=== PATIENT | male | born 1965 | race Two or more races ===

== ENCOUNTER → 2020-07-31 10:45 | Outpatient (BNVA) | payer MEDICAID, SELFPAY | PROVIDERS: PCP Internal Medicine; Referring Provider Internal Medicine; Visit Provider Physician Assistant | DX: M16.12 Unilateral primary osteoarthritis, left hip (principal); Z98.890 Other specified postprocedural states | CPT/HCPCS: 99212 ==

== ENCOUNTER → 2020-08-10 08:50 | Outpatient (BNVA) | payer MEDICAID, SELFPAY | PROVIDERS: PCP Family Medicine; Visit Provider Anesthesiology | DX: G89.4 Chronic pain syndrome (principal); M50.30 Other cervical disc degeneration, unspecified cervical region; M47.812 Spondylosis without myelopathy or radiculopathy, cervical region; M47.816 Spondylosis without myelopathy or radiculopathy, lumbar region | CPT/HCPCS: 99212 ==

== ENCOUNTER → 2020-08-11 08:37 | Outpatient (BNVA) | payer MEDICAID, SELFPAY | PROVIDERS: PCP Family Medicine; Referring Provider Family Medicine; Visit Provider Internal Medicine Gastroenterology | DX: R13.10 Dysphagia, unspecified (principal); R06.00 Dyspnea, unspecified | CPT/HCPCS: 99212 ==

== ENCOUNTER 2020-08-20 10:53 | Outpatient (REF) | payer MEDICAID, SELFPAY ==
[2020-08-20 12:31] LABS: MANUAL DIFF FLAG NO
[2020-08-20 12:50] LABS: Basophils Percent Auto 0.5 % (0-2); Eosinophils Absolute Auto 0.2 X10*3/uL (0.0-0.4); Eosinophils Percent Auto 3.7 % (0-4); Hematocrit 43.4 % (42-52); Hemoglobin 14.2 g/dl (14.0-18.0); Imm Gran Abs Auto 0.02 X10*3/uL (0.00-0.03); Imm Gran Pct Auto 0.3 % (0.0-0.4); Lymphocytes Absolute Auto 3.1 X10*3/uL (1.2-4.9); Lymphocytes Percent Auto 47.5 % (20-40); Mean Corpuscular HGB Conc 32.7 g/dl (31.0-36.0); Mean Corpuscular Hemoglobin 31.2 pg (27.0-33.0); Mean Corpuscular Volume 95.4 fL (80-98); Mean Platelet Volume 9.4 fL (9.4-12.4); Monocytes Absolute Auto 0.5 X10*3/uL (0.1-1.2); Monocytes Percent Auto 7.1 % (2-11); Neutrophils Absolute Auto 2.7 X10*3/uL (2.0-8.3); Neutrophils Percent Auto 40.9 % (45-73); Platelet Count 291 X10*3/uL (160-400); Red Blood Count 4.55 X10*6/uL (4.60-5.80); Red Cell Distribution Width 13.2 % (11.0-16.0); White Blood Count 6.5 X10*3/uL (4.8-10.8)
[2020-08-20 13:12] LABS: Alanine Aminotransferase 40 U/L (0-40); Albumin Level 4.3 g/dL (3.5-5.0); Alkaline Phosphatase 79 U/L (39-117); Anion Gap 10 (12-20); Aspartate Amino Transferase 30 U/L (5-37); Bilirubin Total 0.4 mg/dL (0.0-1.0); Blood Urea Nitrogen 11 mg/dL (9-16); C Reactive Protein 0.44 mg/dL (< or = 0.50); Calcium 9.2 mg/dL (8.4-10.2); Carbon Dioxide 29 mmol/L (22-29); Chloride 106 mmol/L (96-108); Estimated Glomerular Filt Rate > 60; Glucose Random 106 mg/dL (60-115); Potassium 5.1 mmol/l (3.3-5.1); Sodium 140 mmol/L (135-145); Total Protein 6.9 g/dL (6.5-8.0)
[2020-08-20 13:16] LABS: Alanine Aminotransferase 39 U/L (0-40); Albumin Level 4.3 g/dL (3.5-5.0); Alkaline Phosphatase 78 U/L (39-117); Anion Gap 9 (12-20); Aspartate Amino Transferase 29 U/L (5-37); B Type Natriuretic Peptide < 10 pg/mL (<100); Bilirubin Direct < 0.2 mg/dL (0.0-0.5); Bilirubin Total 0.4 mg/dL (0.0-1.0); Blood Urea Nitrogen 11 mg/dL (9-16); Carbon Dioxide 29 mmol/L (22-29); Chloride 105 mmol/L (96-108); Estimated Glomerular Filt Rate > 60; Glucose Random 105 mg/dL (60-115); Potassium 5.1 mmol/l (3.3-5.1); Sodium 138 mmol/L (135-145); Total Protein 6.8 g/dL (6.5-8.0)
[2020-08-20 13:43] LABS: Erythrocyte Sedimentation Rate 7 MM/HR (0-15)
== END 2020-08-20 10:54 | disposition home or self-care (01) ==
LOC: HO.LAB 10:53
PROVIDERS: Absent Provider Student in an Organized Health Care Education/Training Program; PCP Family Medicine; Visit Provider Internal Medicine Gastroenterology
DX: K75.81 Nonalcoholic steatohepatitis (NASH) (principal); R06.00 Dyspnea, unspecified; L40.50 Arthropathic psoriasis, unspecified; L40.9 Psoriasis, unspecified; M47.816 Spondylosis without myelopathy or radiculopathy, lumbar region
CPT/HCPCS: 36415; 80048; 80053; 80076; 82248; 83880; 85025; 85652; 86140

== ENCOUNTER → 2020-08-26 09:39 | Outpatient (BNVA) | payer MEDICAID, SELFPAY | PROVIDERS: PCP Family Medicine; Referring Provider Family Medicine; Visit Provider Student in an Organized Health Care Education/Training Program | DX: L40.50 Arthropathic psoriasis, unspecified (principal); L40.9 Psoriasis, unspecified; R06.00 Dyspnea, unspecified; G89.4 Chronic pain syndrome; M47.816 Spondylosis without myelopathy or radiculopathy, lumbar region; M79.606 Pain in leg, unspecified; Z79.899 Other long term (current) drug therapy; Z23 Encounter for immunization | CPT/HCPCS: 90686; 93005; 99202; 99212 ==

== ENCOUNTER 2020-08-27 08:37 | Outpatient (REF) | payer MEDICAID, SELFPAY ==
--- NOTE | 2020-08-27 08:42 | US_ITS ---
Examination: US LIMITED ABDOMINAL ULTRASOUND WITH THE ELASTOGRAPHY CLINICAL INFORMATION: Nonalcoholic steatohepatitis. COMPARISON: Abdominal ultrasound on 07/18/2019. TECHNIQUE: Real-time scanning of the abdomen was performed assessing randolph scale appearance. Shear wave elastography of the liver was performed. FINDINGS: Liver: The liver is coarse in echotexture and increased in echogenicity. Within the right lobe is a 4.7 x 3.3 x 3.6 cm anechoic cyst. This cyst has increased in size from the 07/18/2019 comparison when it measured up to 3.5 cm maximally. The cyst is unchanged in character without any demonstrable internal flow or wall thickening. A thin single septation is similar appearing to the prior. There is no vascularity within the septation. Within the left lobe is a 4 mm cyst which is unchanged in size or character from the comparison examination. There is no biliary ductal dilatation. Shear wave elastography provides a median stiffness of 1.35 m/s (reference: Normal median stiffness is 0.81 - 1.22 m/s). The IQR/median stiffness to assess sampling precision is 0.10 (reference: Optimal IQR/median stiffness is under 0.3). Gallbladder: Unremarkable. Common Bile Duct: Measures 0.5 mm. Normal caliber. Pancreas: Visualized portions are unremarkable. Kidneys: Right measures 9.6 cm. No hydronephrosis. No nephrolithiasis identified. US/US abdomen remy w elastography IMPRESSION: Echogenic liver consistent with hepatic steatosis. Elastography: Normal to mild fibrosis. A minimally complex cyst within the right lobe of the liver has increased in size from the comparison examination, now measuring up to 4.7 cm (previously 3.5 cm). Attention on short-term ultrasound follow-up.
== END 2020-08-27 08:38 | disposition home or self-care (01) ==
LOC: HO.US 08:37
PROVIDERS: PCP Family Medicine; Visit Provider Internal Medicine Gastroenterology
DX: K75.81 Nonalcoholic steatohepatitis (NASH) (principal); R06.00 Dyspnea, unspecified
CPT/HCPCS: 76705; 76981

== ENCOUNTER → 2020-09-16 11:15 | Outpatient (REF) | payer MEDICAID, SELFPAY ==
--- NOTE | 2020-09-16 11:22 | CA_ITS ---
Transthoracic Echocardiogram Patient (Last, First, Middle): Kvng Ramon E Gender: Male Date of : 1965 Age: 55 Procedure Date: 09/16/2020 Procedure Type: Transthoracic Echocardiogram Location: OP Height: 160.02 cm Weight: 72.58 kg BSA: 1.76 m2 Heart Rate: bpm BP: 116 / 62 mmHg Hoop Bender Tank: DSDoreen Referring MD: Gen Rosales MD Symptoms: R06.00 - Dyspnea, unspecified Study Quality: Good ECG Rhythm: Sinus Conclusions: - The left ventricular systolic function is normal. The visually estimated ejection fraction is between 65-70%. - No obvious valvular pathology seen on this study. Findings Left Ventricle Normal left ventricular cavity size. There is normal left ventricular wall thickness. The left ventricular systolic function is normal. The visually estimated ejection fraction is between 65-70%. The calculated ejection fraction is 69% by biplane method. There is no evidence of regional wall motion abnormalities. Diastolic function is normal for age. Right Ventricle Normal right ventricular cavity size and systolic function. Atria The left atrium is normal in size. The right atrium is normal in size. Aortic Valve There is a normal trileaflet aortic valve. There is no aortic valve stenosis. There is no aortic valve regurgitation. Mitral Valve The mitral valve appears normal. There is no mitral valve regurgitation. There is no mitral valve stenosis. Pulmonic Valve The pulmonic valve was not well visualized. Tricuspid Valve Normal tricuspid valve structure. There is trace tricuspid valve regurgitation. The pulmonary artery systolic pressure is normal. Great Vessels The aortic annulus, sinuses of valsalva, and asc aorta are normal in size. Venous The inferior vena cava is normal in size and collapses greater than 50% with inspiration. Pericardium/Pleural There is no evidence of pericardial effusion. Prior Study Comparison No prior study available for comparison. Recommendations, Care & Conclusions No obvious valvular pathology seen on this study. Measurements M-Mode Liner Measurements Normals - Women/Men IVSd: 1.15 0.6-0.9/0.6-1.0 cm 2D Linear Measurements IVSd: 0.96 0.6-0.9/0.6-1.0 cm LVIDd: 4.44 3.9-5.3/4.2-5.9 cm LVIDd Index: 2.52 2.4-3.2/2.2-3.1 cm/m2 LVIDs: 2.83 2.0-3.6 cm LVPWd: 0.79 0.7-1.1 cm Ao Root: 2.50 2.1-3.5 cm LA Diam: 3.20 2.7-3.8/3.0-4.0 cm LAIDs Index: 1.82 1.5-2.3 cm/m2 LV Mass: 155.16 67-162/88-224 g LV Mass Index: 88.16 43-95/49-115 g/m2 LVOT Diam: 2.00 3.0+(-)1.3 cm 2D Systolic Function EF 4C: 67.20 >55% EF 2C: 70.60 >55% EF BiP: 69.00 >55% Mitral Valve MV Pk E: 0.63 MV PK A: 0.49 MV Decel Time: 169.00 E/A: 1.30 E'Lateral: 9.48 E'Medial: 7.45 E/E' Med: 8.40 E/E' Lat: 6.60 PHT: 50.00 MVA PHT: 4.40 Decel [place]: 3.70 Aortic Valve AoV Pk Mitchell: 1.33 AoV Pk Grad: 7.00 LVOT LVOT Pk Mitchell: 1.12 LVOT Mn Mitchell: 0.72 LVOT VTI: 0.21 LVOT Pk Grad: 5.00 LVOT Mn Grad: 3.00 LVOT Diam: 2.00 LVOT Area: 3.14 Diastolic Function MV Pk E: 0.63 MV Pk A: 0.49 E/A: 1.30 E'Medial: 7.45 E/E' Med: 8.40 E' Laterial: 9.48 E/E' Lat: 6.60 Tricuspid Valve TR Pk Mitchell: 2.20 TR Pk Grad: 19.00 RA Press: 3.00 RVSP: 22.00 Great Vessels Aorta Ao Root-2D: 2.50 2.0-3.7 cm Ao Asc: 2.80 2.1-3.4 cm Updated in Other Vendor System with Status of Final Louie Quiros MD electronically signed on 09/18/2020 11:03:01 AM with status of Final
--- NOTE | 2020-09-16 12:20 | US_ITS ---
EXAMINATION: NONINVASIVE ANKLE BRACHIAL INDICES OF BOTH LOWER EXTREMITIES CLINICAL INFORMATION: Leg pain. COMPARISON: None. TECHNIQUE: Ankle-brachial indices were calculated bilaterally and PVR tracings were performed at the level of the ankles. This study was performed at rest only. FINDINGS: RIGHT LEG: Right ankle-brachial index: 1.17 Right ankle pressures: PT 139 DP 142 PVR (ankle): Normal LEFT LEG: Ankle-brachial index: 1.25 Pressures: PT 151 DP 128 PVR (ankle): Normal LETITIA Reference: - >0.97-1.25 = normal - no significant arterial disease - 0.75-0.96 = mild peripheral arterial disease - 0.5-0.74 = moderate peripheral arterial disease - <0.50 = severe peripheral arterial disease US/US LETITIA complete IMPRESSION: RIGHT LEG: No evidence of arterial insufficiency. LEFT LEG: No evidence of arterial insufficiency.
== END ==
LOC: HO.CARD 11:15
PROVIDERS: Visit Provider Internal Medicine Cardiovascular Disease
DX: M79.606 Pain in leg, unspecified (principal); R06.00 Dyspnea, unspecified
CPT/HCPCS: 93306; 93923

== ENCOUNTER → 2020-09-17 10:38 | Outpatient (REF) | payer MEDICAID, SELFPAY ==
--- NOTE | 2020-09-17 10:44 | CA_ITS ---
Acquisition Time: 2020-09-17 11:41:09 Total Exercise Time: 00:07:32 Test Indications: alejandra Medications: see chart Protocol: DEEPAK Max HR: 131 BPM 80% of Pred: 163 BPM Max BP: 128/082 mmHG Max Work Load: 7.5 METS Exercise sxtress ECHO using Deepak protocol. 3rd stage held as pt was having trouble ambulating d/t his R knee pain. METS 7.1 Denies any anginal sx. Pt was able to reach only 80 % of MAPHR and so the stress test portion is suboptimal. Echo images taken at rest and immediately ater peak HR achieved. Defenity contrast used. Normotensive response to exercsie. Test reviewed with Dr. Quiros Referred By: Gen Rosales Overread By: Laura Zelaya
== END ==
LOC: HO.CARD 10:38
PROVIDERS: Visit Provider Internal Medicine Cardiovascular Disease
DX: R06.00 Dyspnea, unspecified (principal)
CPT/HCPCS: 93350; Q9957

== ENCOUNTER 2020-09-21 13:02 | Outpatient (REF) | payer MEDICAID, SELFPAY ==
--- NOTE | 2020-09-21 13:43 | XR_ITS ---
EXAMINATION: XR PELVIS XR LEFT HIP CLINICAL INFORMATION: Primary osteoarthritis. COMPARISON: 06/12/2020 TECHNIQUE: Pelvis 1 view. Left hip 2 views. FINDINGS: Left Hip: No acute fracture or dislocation. Redemonstrated is prominent sclerotic changes in the femoral head including in the subchondral location. Findings are suspicious for avascular necrosis. No focal subchondral collapse is identified. Hip joint space is maintained. Some calcific density adjacent to the greater trochanter, stable. Pelvis: Right hip joint space is maintained. Mild bilateral SI joint arthritis. No pelvic fractures seen. Phlebolith in the pelvis. Vascular calcifications. XR/XR hip LT min 2V IMPRESSION: Stable appearance of sclerotic changes in the left femoral head, suspicious for avascular necrosis. No evidence of subchondral collapse. Mild bilateral SI joint arthritis. No acute fracture or dislocation.
--- NOTE | 2020-09-21 13:43 | XR_ITS ---
EXAMINATION: XR PELVIS XR LEFT HIP CLINICAL INFORMATION: Primary osteoarthritis. COMPARISON: 06/12/2020 TECHNIQUE: Pelvis 1 view. Left hip 2 views. FINDINGS: Left Hip: No acute fracture or dislocation. Redemonstrated is prominent sclerotic changes in the femoral head including in the subchondral location. Findings are suspicious for avascular necrosis. No focal subchondral collapse is identified. Hip joint space is maintained. Some calcific density adjacent to the greater trochanter, stable. Pelvis: Right hip joint space is maintained. Mild bilateral SI joint arthritis. No pelvic fractures seen. Phlebolith in the pelvis. Vascular calcifications. XR/XR pelvis 1-2V IMPRESSION: Stable appearance of sclerotic changes in the left femoral head, suspicious for avascular necrosis. No evidence of subchondral collapse. Mild bilateral SI joint arthritis. No acute fracture or dislocation.
== END 2020-09-21 13:03 | disposition home or self-care (01) ==
LOC: HO.HOSX 13:02
PROVIDERS: PCP Family Medicine; Referring Provider Family Medicine; Visit Provider Physician Assistant
DX: M16.12 Unilateral primary osteoarthritis, left hip (principal); M87.052 Idiopathic aseptic necrosis of left femur; M70.61 Trochanteric bursitis, right hip
CPT/HCPCS: 20610; 72170; 73502; 99212; J1040

== ENCOUNTER → 2020-09-28 09:01 | Outpatient (BNVA) | payer MEDICAID, SELFPAY | PROVIDERS: PCP Family Medicine; Visit Provider Internal Medicine Cardiovascular Disease | DX: R06.00 Dyspnea, unspecified (principal); G89.4 Chronic pain syndrome | CPT/HCPCS: 99212 ==

== ENCOUNTER 2020-09-29 14:10 | Outpatient (REF) | payer MEDICAID, SELFPAY ==
--- NOTE | 2020-09-29 14:14 | MR_ITS ---
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 COMPARISON: Radiograph dated 09/21/2020 TECHNIQUE: MRI of the left hip was obtained using routine sequences on a high-field magnet. FINDINGS: LABRUM/CAPSULE: There is a small focal tear of the anterosuperior acetabular labrum between the 12 o'clock position and anterosuperior 1 o'clock position. BONES AND ARTICULAR CARTILAGE: A small region of subchondral infarction at the femoral head is relatively linear and discontinuous. The zone measures 3.5 x 2.2 cm in area (AP x transverse), though there is a relatively small volume of necrotic bone, measuring up to 1.2 cm in thickness anteriorly and only 5 mm in thickness posteriorly. There is no significant surrounding marrow edema signal. A subtle cortical break is evident at the anterosuperior/medial margin of the femoral head with overlying full-thickness chondral fissuring and mild underlying subchondral edema. Additional mild subchondral cystic change and edema are noted at the acetabular rim anteriorly, likely due to overlying cartilage loss. There are small marginal osteophytes at the acetabulum. The pubic symphysis is unremarkable. There is mild osteoarthritis in the right hip and SI joints. Degenerative spondylosis is present in the lower lumbar spine. MUSCLES AND TENDONS: At the gluteus medius insertion, there is a 1.2 x 0.5 x 0.7 cm focus of low signal intensity, consistent with calcific tendinitis. The surrounding soft tissues are edematous. A smaller, more punctate focus of calcific tendinitis is also present in this region, measuring up to 4 mm in diameter. There is more mild tendinosis of the gluteus minimus. No tears are identified. There is mild surrounding soft tissue edema. Tendons are otherwise unremarkable. Left hip musculature is normal in signal intensity without atrophy. JOINT FLUID AND BURSAE: No joint effusion. Trace bursal fluid overlying the aforementioned calcific tendinitis at the greater trochanter. LIGAMENTUM TERES: Intact. INTRAPELVIC SOFT TISSUES: Unremarkable. MR/MR hip LT wo con IMPRESSION: 1. Calcific tendinitis at the gluteus medius insertion with surrounding peritendinitis and trace overlying trochanteric bursitis. No tears. 2. Avascular necrosis of the left femoral head with focal full-thickness chondral fissuring, cortical break, and cartilage loss at the anterior margin of the femoral head. Overall mild arthrosis in the left hip. No cortical depression or fragmentation. 3. Small anterosuperior acetabular labral tear.
== END 2020-09-29 14:11 | disposition home or self-care (01) ==
LOC: HO.MRI 14:10
PROVIDERS: PCP Family Medicine; Visit Provider Physician Assistant
DX: M87.052 Idiopathic aseptic necrosis of left femur (principal)
CPT/HCPCS: 73721

== ENCOUNTER 2020-10-16 09:55 | Outpatient (REF) | payer MEDICAID, SELFPAY ==
--- NOTE | 2020-10-16 10:55 | XR_ITS ---
EXAMINATION: XR CHEST CLINICAL INFORMATION: Shortness of breath. COMPARISON: 03/10/2020 chest radiographs. TECHNIQUE: 2 views of the chest were obtained. FINDINGS: No significant abnormality is noted involving the heart, lungs, mediastinum, bony thorax or soft tissues. XR/XR chest 2V IMPRESSION: No acute cardiopulmonary process.
== END 2020-10-16 09:56 | disposition home or self-care (01) ==
LOC: HO.XRAY 09:55
PROVIDERS: PCP Family Medicine; Visit Provider Internal Medicine Gastroenterology
DX: R06.02 Shortness of breath (principal); K76.89 Other specified diseases of liver; R06.00 Dyspnea, unspecified; M54.9 Dorsalgia, unspecified; R13.10 Dysphagia, unspecified; M87.052 Idiopathic aseptic necrosis of left femur
CPT/HCPCS: 71046; 99212

== ENCOUNTER → 2020-10-21 13:38 | Outpatient (BNVA) | payer MEDICAID, SELFPAY | PROVIDERS: PCP Family Medicine; Visit Provider Anesthesiology | DX: M50.30 Other cervical disc degeneration, unspecified cervical region (principal); M47.812 Spondylosis without myelopathy or radiculopathy, cervical region; M47.816 Spondylosis without myelopathy or radiculopathy, lumbar region; G89.4 Chronic pain syndrome | CPT/HCPCS: 99212 ==

== ENCOUNTER 2020-10-28 12:43 | Outpatient (REF) | payer MEDICAID, SELFPAY ==
--- NOTE | 2020-10-28 12:44 | MR_ITS ---
EXAMINATION: MR ABDOMEN WITHOUT AND WITH CONTRAST CLINICAL INFORMATION: Liver disease. COMPARISON: Previous ultrasound of the abdomen August [address] of the abdomen with IV contrast July 2019 TECHNIQUE: MR abdomen was performed without and with use of 10 mL intravenous Gadavist gadolinium contrast. Postcontrast images are performed in multiphase dynamic sequences. Imaging was performed in 3 planes. FINDINGS: LUNG BASES: The visualized lung bases are unremarkable. LIVER, GALLBLADDER, AND BILIARY TREE: The liver is normal in size and shape. There is fatty infiltration of the liver. There are several liver cysts. There is a 4.5 x 3.6 cm cyst in the anterior segment of the right lobe of the liver. This is minimally complex with a small thin nonenhancing septation. There is a small 7 mm cyst in the posterior segment of the right lobe. There is a small 6 mm cyst in the lateral segment of the left lobe. There is a 5 mm cyst high in the dome of the right lobe of the liver. The gallbladder is normal appearing. There is no intrahepatic or extrahepatic biliary duct dilatation. PANCREAS: Unremarkable. SPLEEN: Normal. ADRENAL GLANDS: Normal. KIDNEYS AND URETERS: There is a small 1 cm lesion in the lower pole of the left kidney. This is high signal on T1-weighted sequences, heterogeneous, partially high and partially low signal on T2-weighted sequences. Evaluation for enhancement is difficult as it is predominantly high signal on precontrast images. No definite enhancement is appreciated. This probably represents a complex cyst. This is similar in size to July 2019 CT scan. This is not seen by ultrasound. GASTROINTESTINAL TRACT: There is diverticulosis of the colon. No bowel obstruction. No ascites or fluid collection. ABDOMINAL WALL: No significant hernia is appreciated. LYMPH NODES: No lymphadenopathy. VASCULAR: Unremarkable. OSSEOUS STRUCTURES: Marrow signal normal. MR/MR abdomen wo/w con IMPRESSION: Fatty liver. Several liver cysts, largest a minimally complex cyst measuring 4.5 x 3.6 cm in the right lobe of the liver. 1 cm probable complex cyst in the lower pole of the left kidney. Diverticulosis of the colon.
== END 2020-10-28 12:44 | disposition home or self-care (01) ==
LOC: HO.MRI 12:43
PROVIDERS: Visit Provider Internal Medicine Gastroenterology
DX: K76.89 Other specified diseases of liver (principal)
CPT/HCPCS: 74183; A9585

== ENCOUNTER 2020-11-03 09:00 | Outpatient (RCR) | payer MEDICAID, SELFPAY ==
--- NOTE | 2020-09-24 14:21 | MHC.PT.EP ---
[facility] [place] Office [place] Office [place] Office [address] [phone] F: [phone] F: [phone] F: [phone] F: [phone] Physical Therapy Plan of Care Date of Evaluation: 09/23/20 Date of Surgery: NA Diagnosis: LEFT TROCHANTERIC BURSITIS Assessment: DANTE RETURNS TO PT FOR EXACERBATION OF HIP PAIN WITH CONCURRENT DIAGNOSIS OF AVN, UPON EXAM HE DEMONSTRATES IMPAIRMENTS OF DECREASED HIP AND LE STRENGTH/ROM ALTERED GAIT PATTERN, DECREASED BALANCE AND INCREASED PAIN. FUNCTIONAL LIMITATIONS INCLUDE DECREASED ABILITY TO PERFORM WALKING, STAIR CLIMBING, PUSHING, PULLING AND SQUATTING. HE REPORTS DECREASED ABILITY TO PERFORM HOMEMAKING AND SELF CARE TASKS, DECREASED ABILITY TO SLEEP, DECREASED PARTICIPATION IN COMMUNITY ACTIVITIES. Frequency and Duration: The patient will be seen 2XWEEK FOR 5 WEEKS Short Term Goals: INITIATE HEP AND EDUCATE IN JOINT PROTECTION AND SELF MANAGEMENT OF SYMPTOMS IN 2 WEEKS. Intermediate Goals: TO AMBULATE AD CELESTE ON LEVEL AND UNEVEN SURFACES WITHOUT RESTRICTION IN 5 WEEKS TO ASCEND AND DESCEND STAIRS WITH RECIPROCAL GAIT IN 5 WEEKS WITHOUT PAIN GREATER THAN 2/10. Treatment Plan: Modalities to reduce pain, spasms and effusion. Manual therapy to restore motion and function. Therapeutic exercise to improve strength and flexibility. Neuromuscular re-education for posture and balance. Therapeutic activities to return to functional activities of daily living. Electronically signed by: NANCY HIGGINBOTHAM PT, DPT Please sign and return to therapist. Thank you for your referral.
--- NOTE | 2020-11-03 13:10 | MHC.PT.DC ---
[facility] [place] Office [place] Office [place] Office [address] [phone] F: [phone] F: [phone] F: [phone] F: [phone] Physical Therapy Discharge Report Diagnosis: AVN, LEFT TROCHANTERIC BURSITIS Date of Surgery: NA Date of Evaluation: 09/23/20 Date of Discharge: 11/03/20 Treatments to Date: 11 Cancellations to Date: 0 No Shows to Date: 0 Discharge Status: Improved Function Independent with HEP Discharge Summary: Kvng has progressed well in therapy. Although subjective pain levels have remained fairly constant, he demmonstrates increased strength, ROM and endurance in hip musculature with decreased antalgia with gait. He is independent with current HEP and self management of symptoms. He is confident with DC plan at this time. Electronically signed by: NANCY HIGGINBOTHAM PT, DPT Please sign and return to therapist. Thank you for your referral.
== END 2020-11-03 13:11 | disposition other institution (70) ==
LOC: HO.PT 09:00
PROVIDERS: PCP Family Medicine; Visit Provider Physician Assistant
DX: M70.62 Trochanteric bursitis, left hip (principal)
CPT/HCPCS: 97033; 97110; 97162

== ENCOUNTER → 2020-11-11 12:47 | Outpatient (BNVA) | payer MEDICAID, SELFPAY | PROVIDERS: PCP Family Medicine; Visit Provider Internal Medicine Pulmonary Disease | DX: R06.00 Dyspnea, unspecified (principal); J84.9 Interstitial pulmonary disease, unspecified; Z77.090 Contact with and (suspected) exposure to asbestos | CPT/HCPCS: 99202 ==

== ENCOUNTER 2020-11-23 11:06 | Outpatient (REF) | payer MEDICAID, SELFPAY ==
[2020-11-23 11:42] LABS: MANUAL DIFF FLAG NO
[2020-11-23 11:52] LABS: Basophils Percent Auto 0.5 % (0-2); Eosinophils Absolute Auto 0.2 X10*3/uL (0.0-0.4); Eosinophils Percent Auto 2.4 % (0-4); Hematocrit 44.2 % (42-52); Hemoglobin 14.8 g/dl (14.0-18.0); Imm Gran Abs Auto 0.02 X10*3/uL (0.00-0.03); Imm Gran Pct Auto 0.2 % (0.0-0.4); Lymphocytes Absolute Auto 3.4 X10*3/uL (1.2-4.9); Lymphocytes Percent Auto 40.7 % (20-40); Mean Corpuscular HGB Conc 33.5 g/dl (31.0-36.0); Mean Corpuscular Hemoglobin 31.2 pg (27.0-33.0); Mean Corpuscular Volume 93.1 fL (80-98); Monocytes Absolute Auto 0.5 X10*3/uL (0.1-1.2); Monocytes Percent Auto 6.2 % (2-11); Neutrophils Absolute Auto 4.2 X10*3/uL (2.0-8.3); Platelet Count 323 X10*3/uL (160-400); Red Blood Count 4.75 X10*6/uL (4.60-5.80); Red Cell Distribution Width 12.8 % (11.0-16.0); White Blood Count 8.4 X10*3/uL (4.8-10.8)
[2020-11-23 12:13] LABS: Alanine Aminotransferase 30 U/L (0-40); Albumin Level 4.5 g/dL (3.5-5.0); Alkaline Phosphatase 82 U/L (39-117); Anion Gap 12 (12-20); Aspartate Amino Transferase 23 U/L (5-37); Bilirubin Total 0.7 mg/dL (0.0-1.0); Blood Urea Nitrogen 14 mg/dL (9-16); C Reactive Protein 0.98 mg/dL (< or = 0.50); Calcium 9.2 mg/dL (8.4-10.2); Carbon Dioxide 29 mmol/L (22-29); Chloride 105 mmol/L (96-108); Estimated Glomerular Filt Rate 58; Glucose Random 100 mg/dL (60-115); Potassium 4.8 mmol/L (3.3-5.1); Sodium 141 mmol/L (135-145); Total Protein 7.4 g/dL (6.5-8.0)
[2020-11-23 12:35] LABS: Erythrocyte Sedimentation Rate 3 MM/HR (0-15)
== END 2020-11-23 11:07 | disposition home or self-care (01) ==
LOC: HO.LAB 11:06
PROVIDERS: Visit Provider Student in an Organized Health Care Education/Training Program
DX: L40.50 Arthropathic psoriasis, unspecified (principal)
CPT/HCPCS: 36415; 80053; 85025; 85652; 86140

== ENCOUNTER 2020-11-26 | Outpatient (REF) | payer MEDICAID, SELFPAY ==
--- NOTE | ~2020-11-26 | CT_ITS ---
EXAMINATION: CT CHEST WITHOUT CONTRAST CLINICAL INFORMATION: Interstitial pulmonary disease COMPARISON: Previous chest x-ray 10/16/2020 and chest CTA March 2020 TECHNIQUE: Multidetector volumetric CT imaging of the chest was done. Axial MIP volume rendering provided. Sagittal and coronal reformatted images were obtained. This CT examination was performed using dose optimization techniques as appropriate, variously including the following: *Automated exposure control *Adjustment of mA and/or kV according to patient size (this includes techniques or standardized protocols for targeted exams where dose is matched to indication/reason for exam; i.e. 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 No evidence of interstitial lung disease is seen. No evidence of emphysema or bronchiectasis is seen. There is no endobronchial or endotracheal lesion. MEDIASTINUM: The mediastinum is normal. PLEURA: There is no pleural effusion. No pleural mass or thickening. AXILLA: No lymphadenopathy. UPPER ABDOMEN: The liver is heterogeneous in attenuation probably representing fatty infiltration with areas of focal fatty sparing. There is a 3.6 cm low-attenuation lesion in the right lobe of the liver suggestive of a cyst. OSSEOUS STRUCTURES: There are mild degenerative changes of the lower cervical and upper thoracic spine. CT/CT chest wo con IMPRESSION: Unremarkable examination.
== END 2020-11-26 00:01 ==
LOC: HO.CT
PROVIDERS: Visit Provider Internal Medicine Pulmonary Disease
DX: J84.9 Interstitial pulmonary disease, unspecified (principal)
CPT/HCPCS: 71250

== ENCOUNTER → 2020-11-27 12:16 | Outpatient (BNVA) | payer MEDICAID, SELFPAY | PROVIDERS: PCP Family Medicine; Visit Provider Student in an Organized Health Care Education/Training Program | DX: L40.50 Arthropathic psoriasis, unspecified (principal); L40.9 Psoriasis, unspecified | CPT/HCPCS: 99212 ==

== ENCOUNTER 2020-12-02 13:44 | Outpatient (REF) | payer MEDICAID, SELFPAY ==
--- NOTE | 2020-12-02 14:55 | PFT_ITS ---
Forced vital capacity, FEV1, UGI82-17 are normal. MVV slightly decreased. Post bronchodilator therapy, no significant change. Total lung capacity and residual volume normal. Diffusion capacity normal. CONCLUSION: Normal pulmonary function test except for slight decrease in MVV. There is no evidence of any obstructive or restrictive pulmonary disorder. MD ALYSSA Johnson/MODL / [id number]
== END 2020-12-02 13:45 | disposition home or self-care (01) ==
LOC: HO.RESP 13:44
PROVIDERS: Visit Provider Internal Medicine Pulmonary Disease
DX: J84.9 Interstitial pulmonary disease, unspecified (principal); R06.02 Shortness of breath
CPT/HCPCS: 94060; 94727; 94729; 99212

== ENCOUNTER 2021-02-18 11:19 | Outpatient (REF) | payer MEDICAID, SELFPAY ==
--- NOTE | ~2021-02-18 | XR_ITS ---
EXAMINATION: RIGHT ANKLE AND RIGHT KNEE. CLINICAL INFORMATION: Pain. COMPARISON: Right knee 04/12/2018 TECHNIQUE: Right ankle 3 views. Right knee 3 views. FINDINGS: Right ankle: The ankle mortise and subtalar joints are normal. There is no visible fracture, dislocation. The soft tissues are normal. Right knee: There is a small bony avulsion fragment medial patella likely acute. No additional areas of acute fracture, dislocation or subluxation. There is mild loss of medial and patellofemoral compartment joint space with periarticular spurring. There are no loose bodies, joint effusion or bony erosive changes. XR/XR ankle RT 2V IMPRESSION: Unremarkable right ankle exam. Small avulsion fracture fragment medial patella from injury. Mild degenerative changes medial and patellar femoral compartments with mild superior patellar spurring.
--- NOTE | ~2021-02-18 | XR_ITS ---
EXAMINATION: RIGHT ANKLE AND RIGHT KNEE. CLINICAL INFORMATION: Pain. COMPARISON: Right knee 04/12/2018 TECHNIQUE: Right ankle 3 views. Right knee 3 views. FINDINGS: Right ankle: The ankle mortise and subtalar joints are normal. There is no visible fracture, dislocation. The soft tissues are normal. Right knee: There is a small bony avulsion fragment medial patella likely acute. No additional areas of acute fracture, dislocation or subluxation. There is mild loss of medial and patellofemoral compartment joint space with periarticular spurring. There are no loose bodies, joint effusion or bony erosive changes. XR/XR knee RT 3V IMPRESSION: Unremarkable right ankle exam. Small avulsion fracture fragment medial patella from injury. Mild degenerative changes medial and patellar femoral compartments with mild superior patellar spurring.
== END 2021-02-18 11:20 | disposition home or self-care (01) ==
LOC: HO.XRAY 11:19
PROVIDERS: PCP Family Medicine; Visit Provider Family Medicine
DX: M25.561 Pain in right knee (principal); M25.571 Pain in right ankle and joints of right foot
CPT/HCPCS: 73562; 73600

== ENCOUNTER → 2021-03-23 09:29 | Outpatient (REF) | payer MEDICAID, SELFPAY ==
[2021-03-23 10:45] LABS: MANUAL DIFF FLAG NO
[2021-03-23 10:54] LABS: Basophils Percent Auto 0.5 % (0-2); Eosinophils Absolute Auto 0.3 X10*3/uL (0.0-0.4); Eosinophils Percent Auto 4.2 % (0-4); Imm Gran Abs Auto 0.02 X10*3/uL (0.00-0.03); Imm Gran Pct Auto 0.3 % (0.0-0.4); Lymphocytes Absolute Auto 3.8 X10*3/uL (1.2-4.9); Mean Corpuscular HGB Conc 33.3 g/dl (31.0-36.0); Mean Corpuscular Hemoglobin 30.9 pg (27.0-33.0); Mean Corpuscular Volume 92.7 fL (80-98); Mean Platelet Volume 8.9 fL (9.4-12.4); Monocytes Absolute Auto 0.4 X10*3/uL (0.1-1.2); Monocytes Percent Auto 6.8 % (2-11); Neutrophils Percent Auto 30.2 % (45-73); Platelet Count 272 X10*3/uL (160-400); Red Blood Count 4.53 X10*6/uL (4.60-5.80); Red Cell Distribution Width 12.8 % (11.0-16.0); White Blood Count 6.5 X10*3/uL (4.8-10.8)
[2021-03-23 11:23] LABS: Alanine Aminotransferase 24 U/L (0-40); Albumin Level 4.2 g/dL (3.5-5.0); Alkaline Phosphatase 87 U/L (39-117); Anion Gap 10 (12-20); Aspartate Amino Transferase 24 U/L (5-37); Bilirubin Total 0.4 mg/dL (0.0-1.0); Blood Urea Nitrogen 14 mg/dL (9-16); Carbon Dioxide 27 mmol/L (22-29); Chloride 108 mmol/L (96-108); Estimated Glomerular Filt Rate > 60; Glucose Random 106 mg/dL (60-115); Potassium 4.4 mmol/L (3.3-5.1); Sodium 141 mmol/L (135-145); Total Protein 6.8 g/dL (6.5-8.0)
[2021-03-23 11:37] LABS: Erythrocyte Sedimentation Rate 2 MM/HR (0-15)
== END ==
LOC: HO.SL 09:29
PROVIDERS: Absent Provider Student in an Organized Health Care Education/Training Program; PCP Family Medicine; Visit Provider Family Medicine
DX: G47.30 Sleep apnea, unspecified (principal); L40.50 Arthropathic psoriasis, unspecified
CPT/HCPCS: 36415; 80053; 85025; 85652; 86140; 95806

== ENCOUNTER → 2021-03-29 12:46 | Outpatient (BNVA) | payer MEDICAID, SELFPAY | PROVIDERS: PCP Family Medicine; Referring Provider Family Medicine; Visit Provider Internal Medicine Cardiovascular Disease | DX: R20.0 Anesthesia of skin (principal) | CPT/HCPCS: 93005; 99212 ==

== ENCOUNTER → 2021-03-31 09:26 | Outpatient (BNVA) | payer MEDICAID, SELFPAY | PROVIDERS: PCP Family Medicine; Visit Provider Student in an Organized Health Care Education/Training Program | DX: L40.50 Arthropathic psoriasis, unspecified (principal); M47.816 Spondylosis without myelopathy or radiculopathy, lumbar region; Z79.899 Other long term (current) drug therapy | CPT/HCPCS: 99212 ==

== ENCOUNTER → 2021-04-02 09:33 | Outpatient (BNVA) | payer MEDICAID, SELFPAY | PROVIDERS: PCP Family Medicine; Referring Provider Family Medicine; Visit Provider Internal Medicine Gastroenterology | DX: K76.89 Other specified diseases of liver (principal); M54.9 Dorsalgia, unspecified; R20.0 Anesthesia of skin | CPT/HCPCS: 99212 ==

== ENCOUNTER 2021-04-13 07:52 | Outpatient (REF) | payer MEDICAID, SELFPAY ==
--- NOTE | ~2021-04-13 | MR_ITS ---
EXAMINATION: MR ABDOMEN WITHOUT AND WITH CONTRAST CLINICAL INFORMATION: K76.89 - Other specified diseases of liver COMPARISON: MR abdomen without and with contrast 10/28/2020, abdominal ultrasound 08/27/2020, CT abdomen with contrast 07/18/2019. TECHNIQUE: MR abdomen was performed without and with use of 7.5 mL intravenous Gadavist gadolinium contrast. Postcontrast images are performed in multiphase dynamic sequences. Imaging was performed in 3 planes. FINDINGS: LUNG BASES: The lung bases are clear. LIVER, GALLBLADDER, AND BILIARY TREE: The liver is normal in size measuring 15.8 cm in length. The liver surface is smooth. There is benign inhomogeneous geographic signal loss on out of phase imaging consistent with hepatic steatosis. There is no enhancing hepatic parenchymal lesion. The dominant cyst central right lobe with circumscribed macrolobulated margins is without significant change in size, measuring 4.6 x 3.8 x 4.5 cm on current study. Prior measurement is 4.4 x 3.7 x 4.4 cm on MR 10/28/2020 and 3.9 x 3.2 x [address] abdomen 07/18/2019, (both prior exams remeasured in same orientation). Fine incomplete nonenhancing septation noted previously is not demonstrated on current study. There is no solid component or visible septation. Again, there are incidental subcentimeter cysts dome right lobe, subcapsular posterior right lobe, and segment 3 left lobe. The gallbladder is unremarkable with no evidence of gallbladder wall thickening, or obvious pericholecystic inflammatory changes. PANCREAS: Normal in size and contour and signal. No pancreatic ductal distention. SPLEEN: Normal. ADRENAL GLANDS: Normal. KIDNEYS AND URETERS: The kidneys are normal in size and enhance symmetrically. There is stable small hemorrhagic cyst posterior lateral interpolar left kidney, either bilobed or 2 adjacent cysts, with overall size approximately 1.3 x 1.0 cm. This shows homogeneous high signal on noncontrast T1 fat-suppressed gradient sequence and no appreciable enhancement following contrast. GASTROINTESTINAL TRACT: No bowel obstruction. No ascites or fluid collection. ABDOMINAL WALL: No significant hernia is appreciated. LYMPH NODES: No lymphadenopathy. VASCULAR: Unremarkable. OSSEOUS STRUCTURES: Marrow signal normal. MR/MR abdomen wo/w con IMPRESSION: 1. Inhomogeneous hepatic steatosis. Liver normal in size. No enhancing lesion. 2. Dominant cyst right hepatic lobe without significant change, 4.6 x 3.8 x 4.5 cm. 3. Probable hemorrhagic cyst interpolar left kidney without significant change, 1.3 cm.
== END 2021-04-13 07:53 | disposition home or self-care (01) ==
LOC: HO.MRI 07:52
PROVIDERS: Visit Provider Internal Medicine Gastroenterology
DX: K76.89 Other specified diseases of liver (principal)
CPT/HCPCS: 74183; A9585

== ENCOUNTER 2021-05-06 08:55 | Day surgery (SDC) | payer MEDICAID, SELFPAY ==
[2021-04-29 13:44] VITALS: BMI 33.5
[2021-05-06 09:08] VITALS: BP 137/89; PULSE 81; RESP 16; TEMP 36.5; O2SAT 96
[2021-05-06] MEDS: Lactated Ringers 1,000 ML 50 ML IVCONT (09:32)
--- NOTE | 2021-05-06 10:03 | P.CONAN_ITS ---
[facility] Active Problems Active Problems: All Active Problems (Updated 04/29/21 @ 13:44 by Alyx loza) Osteoarthritis of left hip (Acute) Dyspnea (Acute) Nonalcoholic steatohepatitis (CROSS) (Acute) Leg pain (Acute) Avascular necrosis of bone of left hip (Acute) Trochanteric bursitis of left hip (Acute) Trochanteric bursitis of right hip (Acute) Liver cyst (Acute) SOB (shortness of breath) (Acute) Back pain (Acute) Right sided numbness (Acute) Psoriasis (Acute) Psoriatic arthritis (Acute) Chronic pain syndrome (Acute) Spondylosis of lumbar region without myelopathy or radiculopathy (Acute) Spondylosis, cervical (Acute) Degeneration, intervertebral disc, cervical (Acute) Past Medical History Medical History Asthma Avascular necrosis Chronic pain Chronic pain syndrome Degeneration, intervertebral disc, cervical Depression Dysphagia Fatty liver HTN (hypertension) Hx of chest pain Hypothyroid Mood disorder DAYNA on CPAP Pre-diabetes Psoriasis Psoriatic arthritis Schatzki's ring Spondylosis of lumbar region without myelopathy or radiculopathy Spondylosis, cervical Family History Family History Father Cirrhosis Alcoholism Mother Diabetes HTN (hypertension) Parkinson disease Brother Cirrhosis Alcoholism Family history of problems with anesthesia: No Surgical History Surgical History H/O neck surgery History of colonoscopy Hx of endoscopy Hx of hand surgery History of Problems with Anesthesia: No Social History Social History Household Members: Spouse and Children Are you a primary transition of care specialist to a significant other at home: No Do you presently have visiting nurse or other home services: No Alcohol intake: never Patient Tobacco Use Status: Never used Tobacco Use of substances other than those prescribed or required for medical reasons: No Are you DNR?: No Advance Directives: No Advance Directives Information Provided: No Advance Directives on File: No Recently lost weight without trying: No Eating poorly because of decreased appetite: No Nutrition Risks: Difficulty swallowing Meds Allergies Allergy/AdvReac Type Severity Reaction Status Date / Time No Known Allergies Allergy Verified 04/29/21 13:05 [No Known Allergies*] Active Medications: Current Medications Generic Name Dose Route Start Last Admin Trade Name Мария PRN Reason Stop Dose Admin Lactated Ringer's 1,000 mls @ 50 mls/hr 05/06/21 10:15 Lr IVCONT .Q20H [facility] Home Medications Medication Instructions Recorded Confirmed Last Taken Type albuterol sulfate 90 mcg/actuation 2 puff INHALATION Q6H PRN 08/10/20 04/29/21 Unknown History aerosol inhaler (ProAir HFA) amitriptyline 25 mg tablet 25 mg PO BEDTIME 08/10/20 04/29/21 Unknown History buspirone 10 mg tablet 10 mg PO TID 08/10/20 04/29/21 Unknown History escitalopram oxalate 20 mg tablet 20 mg PO DAILY 08/10/20 04/29/21 Unknown His tory fluticasone propionate 50 1 spray INTRANASAL DAILY 08/10/20 04/29/21 Unknown History mcg/actuation nasal spray,suspension baclofen 10 mg tablet 10 mg PO DAILY 11/11/20 04/29/21 Unknown History levothyroxine 50 mcg capsule 50 mcg PO DAILY 11/11/20 04/29/21 05/06/21 History amlodipine 2.5 mg tablet 2.5 mg PO DAILY 03/29/21 04/29/21 Unknown History gabapentin 300 mg capsule 300 mg PO TID 03/29/21 04/29/21 Unknown History loratadine 10 mg capsule 10 mg PO DAILY 03/29/21 04/29/21 Unknown History tizanidine 2 mg capsule 2 mg PO BEDTIME 03/31/21 04/29/21 Unknown History docusate sodium 100 mg capsule 1 cap PO BID 04/29/21 04/29/21 Unknown History Exam Exam Date and Time: May 06, 2021 1003 Height,Weight and Vital Signs: Height 5 ft Weight 172 lb Last Vital Signs Temp 97.7 F 05/06/21 09:08 Pulse 81 05/06/21 09:08 Resp 16 05/06/21 09:08 BP 137/89 05/06/21 09:08 Pulse Ox 96 05/06/21 09:08 Airway Mallampati Class: III TM Dist: >3cm Neck ROM: Full Assessment and Plan Assessment Anesthesia Assessment: Anesthesia Plan Discussed and Chart Reviewed Final Anesthetic Review Family History of Problems with Anesthesia: No History of Problems with Anesthesia: No NPO: Yes ASA Class: II Final Preanesthetic Review: No Changes in Pt Med Stat, Meds/Allgs Chart Reviewed, Consent Obtained/Reviewed and Anes Risks/Benef Reviewed Patient Risk: Intermediate Procedure Risk: Low Anesthetic Plan Anesthetic Plan: MAC: Disposition: Standard PACU
--- NOTE | 2021-05-06 11:31 | MHC.SHP ---
Pre-Procedural Eval Section A Date of Service: 05/06/21 Section B Chief Complaint: liver diseases Details of Present Illness: choking and fullness when swallowing Relevant Family History (Specify if Yes): No Relevant Social History: None Present Medications: see Short Stay Collaborative assessment Medical History: Significant History (Asthma Avascular necrosis Chronic pain Chronic pain syndrome Degeneration, intervertebral disc, cervical Depression Dysphagia Fatty liver HTN (hypertension) Hx of chest pain Hypothyroid Mood disorder DAYNA on CPAP Pre-diabetes Psoriasis Psoriatic arthritis Schatzki's ring Spondylosis of lumbar region ) History of Previous Operations: Relevant previous surgery/procedure and date(s) (H/O neck surgery History of colonoscopy Hx of endoscopy Hx of hand surgery) Allergies: Allergies Allergy/AdvReac Type Severity Reaction Status Date / Time No Known Allergies Allergy Verified 04/29/21 13:05 [No Known Allergies*] Review of Systems Sugical H&P ROS: Negative: Constitution, Cardiovascular, Respiratory, Neurological, Psychiatric, Hem-Onc, Allergic/Immunologic, Gastrointestinal, Genitourinary, Musculoskeletal, Integumentary, Endocrine and Eyes/Ears/Nose/Throat Exam Surgical H&P Exam: Normal: HEENT, Normal: Heart, Normal: Lungs, Normal: Extremities, Normal: Abdomen, Normal: Skin and Normal: Neurological Plan Diagnosis/Plan: Unchanged I have reviewed the history and physical and performed a pertinent physical examination on my patient. No changes have occurred unless specified.
--- NOTE | 2021-05-06 11:34 | P.BOP_ITS ---
Brief Operative Note Date of Service: 05/06/21 Pre-op diagnosis: choking and fullness on swallowing Post-op diagnosis: same Procedure: see op note Surgeon: Kolby Nelson MD Anesthesia: MAC Was an Histology Technologist used for this Procedure?: No Estimated blood loss (mL): 0 Condition: stable Disposition: PACU
--- NOTE | 2021-05-06 11:34 | W.PM.OPN ---
Operative Note Operative Note Date of Service: 05/06/21 Narrative: Procedure Description: EGD FLEXIBLE TRANSORAL UPPER GASTROINTESTINAL ENDOSCOPY UPPER ENDOSCOPY Consent: Indications for the procedure and potential complications of bleeding, perforation, reaction to medications and missed diagnosis were discussed with the patient and informed consent was obtained. Instrument: Olympus GIF H 190 J mid size upper endoscope Monitoring: Vital signs and clinical assessment, continuous EKG monitoring, Pulse oximetry, Carbon Dioxide monitoring and blood pressure monitoring were done throughout the procedure. Procedure: The patient was placed in the left lateral decubitis position and pre-procedure medications were administered and a bite block was placed. The endoscope was inserted into the mouth and advanced under direct vision to the third part of duodenum. A careful inspection was made as the upper endoscope was withdrawn including a retroflexed examination of the proximal stomach; Findings and interventions are described below. Findings: Larynx:normal Esophagus: GE junction at 38 cm, diaphragm hiatus at 38 cm, LA grade B erosive esophagitis noted, bx taken from gEJ, and distal and proximal esophagus in different jars. Balloon dilation done at 19 mm at LES and UES. A non obstructive schatzki ring was noted. Stomach: Patchy gastric erythema with scarring. Biopsies were obtained. Grade 2 flap valve on retroflexed examination of the cardia. Duodenum: bulbar duodenitis, normal descending duodenum, bx taken Intervention: Biopsies as noted above Impression/Findings: schatzki ring esophagitis gastritis duodenitis maybe due to medications i.e CCB, SSRI PLAN: confirm whether taking PPI if not then commence if h pylori pos then treat regular diet today
[2021-05-06 12:10] VITALS: BP 76/53; PULSE 88; RESP 16; TEMP 36.1; O2SAT 100
[2021-05-06 12:15] VITALS: BP 96/69; PULSE 82; RESP 16; O2SAT 100
[2021-05-06 12:20] VITALS: BP 104/69; PULSE 89; RESP 16; O2SAT 92
[2021-05-06 12:25] VITALS: BP 108/71; PULSE 81; RESP 16; O2SAT 99
[2021-05-06 12:40] VITALS: BP 105/71; PULSE 79; RESP 16; TEMP 36.1; O2SAT 96
== END 2021-05-06 13:42 | disposition home or self-care (01) ==
PROVIDERS: PCP Family Medicine; Visit Provider Internal Medicine Gastroenterology
PROC: 0DJ08ZZ Inspection of Upper Intestinal Tract, Via Natural or Artificial Opening Endoscopic (ICD-10-PCS; CPT 43235; principal; 2021-05-06 14:00)
DX: K22.2 Esophageal obstruction (principal); K29.40 Chronic atrophic gastritis without bleeding; K20.80 Other esophagitis without bleeding; K29.80 Duodenitis without bleeding; K44.9 Diaphragmatic hernia without obstruction or gangrene; K76.0 Fatty (change of) liver, not elsewhere classified; J45.909 Unspecified asthma, uncomplicated; M87.9 Osteonecrosis, unspecified; G89.4 Chronic pain syndrome; I10 Essential (primary) hypertension; G47.33 Obstructive sleep apnea (adult) (pediatric); R73.03 Prediabetes; L40.50 Arthropathic psoriasis, unspecified; Z79.51 Long term (current) use of inhaled steroids; Z79.899 Other long term (current) drug therapy
CPT/HCPCS: 43249; 43239; 88305; 88342; C1726

== ENCOUNTER → 2021-05-10 10:19 | Outpatient (BNVA) | payer MEDICAID, SELFPAY | PROVIDERS: PCP Family Medicine; Visit Provider Anesthesiology | DX: M50.322 Other cervical disc degeneration at C5-C6 level (principal); M47.816 Spondylosis without myelopathy or radiculopathy, lumbar region; M47.812 Spondylosis without myelopathy or radiculopathy, cervical region; G89.4 Chronic pain syndrome | CPT/HCPCS: 99212 ==

== ENCOUNTER 2021-05-13 15:25 | Outpatient (REF) | payer MEDICAID, SELFPAY ==
--- NOTE | ~2021-05-13 | XR_ITS ---
EXAMINATION: XR CERVICAL SPINE CLINICAL INFORMATION: Fibromyalgia. COMPARISON: 02/06/2020 and 06/12/2018 TECHNIQUE: Three views of the cervical spine were obtained. FINDINGS: No abnormal prevertebral soft tissue swelling is seen. No acute cervical spine fracture is noted. Patient is status post previous anterior discectomy and cervical fusion at the C5-C6 and C6-C7 levels. There is significant narrowing with marginal spurring seen at the C4-C5 disc space level. Left carotid artery calcification is noted. XR/XR cervical spine 3V IMPRESSION: No acute fracture of the cervical spine. Degenerative disc disease at the C4-C5 level. Status post anterior fusion C5-C6 and C6-C7 levels.
[2021-05-14 08:37] LABS: Syphilis Screen Nonreactive (Nonreactive)
[2021-05-14 17:32] LABS: Lyme Abs Screen <0.90 index
== END 2021-05-13 15:26 | disposition home or self-care (01) ==
LOC: HO.LAB 15:25
PROVIDERS: PCP Family Medicine; Visit Provider Psychiatry & Neurology Neurology
DX: M79.7 Fibromyalgia (principal)
CPT/HCPCS: 36415; 72040; 82550; 86617; 86618; 86780

== ENCOUNTER 2021-05-27 08:08 | Outpatient (REF) | payer MEDICAID, SELFPAY ==
--- NOTE | ~2021-05-27 | XR_ITS ---
EXAMINATION: AP WEIGHTBEARING BOTH KNEES AND LATERAL AND SUNRISE VIEW OF THE RIGHT KNEE CLINICAL INFORMATION: Right knee pain COMPARISON: None TECHNIQUE: As above FINDINGS: Tiny 4 mm metallic foreign body overlying the medial aspect of the patellofemoral joint soft tissues. No underlying bony abnormality. No large effusion. Minor patella spurring. XR/XR knee RT 2V IMPRESSION: Foreign body as above.
--- NOTE | ~2021-05-27 | XR_ITS ---
EXAMINATION: AP WEIGHTBEARING BOTH KNEES AND LATERAL AND SUNRISE VIEW OF THE RIGHT KNEE CLINICAL INFORMATION: Right knee pain COMPARISON: None TECHNIQUE: As above FINDINGS: Tiny 4 mm metallic foreign body overlying the medial aspect of the patellofemoral joint soft tissues. No underlying bony abnormality. No large effusion. Minor patella spurring. XR/XR knee standing BI IMPRESSION: Foreign body as above.
== END 2021-05-27 08:09 | disposition home or self-care (01) ==
LOC: HO.HOSX 08:08
PROVIDERS: Visit Provider Physician Assistant
DX: M17.11 Unilateral primary osteoarthritis, right knee (principal); M25.562 Pain in left knee
CPT/HCPCS: 73560; 73565; 99202

== ENCOUNTER → 2021-06-08 18:53 | Outpatient (REF) | payer MEDICAID, SELFPAY | LOC: HO.SL 18:53 | PROVIDERS: Visit Provider Family Medicine | DX: G47.30 Sleep apnea, unspecified (principal); R68.81 Early satiety | CPT/HCPCS: 95811; 99212 ==

== ENCOUNTER 2021-06-24 11:26 | Outpatient (REF) | payer MEDICAID, SELFPAY ==
--- NOTE | ~2021-06-24 | MR_ITS ---
EXAMINATION: MR LUMBAR SPINE WITHOUT CONTRAST CLINICAL INFORMATION: Spondylosis without myelopathy. COMPARISON: Plain films of the lumbar spine 05/09/2019. TECHNIQUE: MRI of the lumbar spine was obtained using routine sequences without contrast. FINDINGS: VERTEBRAL BODIES AND PARASPINAL STRUCTURES: There is anatomic alignment of the vertebral bodies. There is narrowing of intervertebral disc height at L5-S1. There is loss of signal from this disc as well as from the disc at L4-L5 consistent with disc desiccation. There are mild degenerative endplate contour changes with fatty signal along the superior endplates of L4 and L5. Vertebral body heights are maintained. No fractures are demonstrated. Overall, marrow signal is homogenous. The visualized retroperitoneal and pelvic structures are unremarkable. CONUS MEDULLARIS AND CAUDA EQUINA: Normal, terminating at the level of L1. The lower thoracic spinal cord appears normal. The cauda equina nerve roots and filum terminale appear normal. SPINAL LEVELS: L1-L2: There is mild bilateral facet arthropathy. Disc contour is normal. There is no central stenosis or foraminal narrowing. L2-L3: There is mild bilateral facet arthropathy. Disc contour is normal. There is no central stenosis or foraminal narrowing. L3-L4: There is mild bilateral facet arthropathy. Disc contour is normal. There is no central stenosis or foraminal narrowing. L4-L5: There is moderate bilateral facet arthropathy with ligamenta flava hypertrophy. There is a posterior disc protrusion, with a left-sided annular tear extending into the neural foramina bilaterally without definite exiting nerve root impingement. There is narrowing of the right subarticular recess. There is no central stenosis. L5-S1: There is moderate to severe bilateral facet arthropathy. There is a small posterior disc protrusion without significant mass effect on the thecal sac. The neural foramina are patent bilaterally, and there is no central stenosis. MR/MR lumbar spine wo con IMPRESSION: 1. There are facet arthropathic changes at L4-L5 with a posterior disc protrusion. There is narrowing of the right subarticular recess. There is no foraminal nerve root impingement and there is no central stenosis. 2. At L5-S1 there is moderate to severe facet arthropathy. There is a small posterior disc protrusion without mass effect on the thecal sac and the neural foramina are patent. There is no central stenosis.
== END 2021-06-24 11:27 | disposition home or self-care (01) ==
LOC: HO.MRI 11:26
PROVIDERS: PCP Family Medicine; Visit Provider Anesthesiology
DX: M47.816 Spondylosis without myelopathy or radiculopathy, lumbar region (principal); M47.814 Spondylosis without myelopathy or radiculopathy, thoracic region
CPT/HCPCS: 72148

== ENCOUNTER 2021-07-13 10:00 | Outpatient (RCR) | payer MEDICAID, SELFPAY ==
--- NOTE | 2021-06-08 11:55 | MHC.PT.EP ---
[facility] [place] Office [place] Office [place] Office [address] [phone] F: [phone] F: [phone] F: [phone] F: [phone] Physical Therapy Plan of Care Date of Evaluation: Date of Surgery: Diagnosis: unilateral primary OA of R knee Assessment: 56 y/o male referred to PT with L knee OA. He has had progressive R knee pain for 3 years resulting in pain and difficulty with walking, stairs, and standing secondary to decreased R LE strength, poor lumbar ROM, decreased muscle length of quads/ hip flexors/ ITB, and impaired gait pattern. Recommend PT 2x/week for 5 weeks to address impairments, implement HEP, and optimize functional mobility. Frequency and Duration: The patient will be seen 2x/week for 5 weeks Short Term Goals: 3 weeks 1. I with HEP 2. Improve quad length to 105 B (IR 90) System Dispatcher Goals: 5 weeks 1. I with HEP and self management of sx 2. Pt will be able to ambulate > 20 min with SPC and pain < 2/10 3. Pt will improve R LE strength by 1 MMT grade to facilitate stair management Treatment Plan: Modalities to reduce pain, spasms and effusion. Manual therapy to restore motion and function. Therapeutic exercise to improve strength and flexibility. Neuromuscular re-education for posture and balance. Therapeutic activities to return to functional activities of daily living. Electronically signed by: Sheryl Aguilar PT Please sign and return to therapist. Thank you for your referral.
--- NOTE | 2021-07-13 11:53 | MHC.PT.DC ---
[facility] [place] Office [place] Office [place] Office [address] [phone] F: [phone] F: [phone] F: [phone] F: [phone] Physical Therapy Discharge Report Diagnosis: unilateral primary OA R knee Date of Surgery: Date of Evaluation: 06/08/21 Date of Discharge: 07/13/21 Treatments to Date: 8 Cancellations to Date: 0 No Shows to Date: 1 Discharge Status: Improved Function Independent with HEP Discharge Summary: Pt appropriate for d/c secondary to improved function, improved ability to ambulate on stairs, and I with HEP. Electronically signed by: Sheryl Aguilar PT Please sign and return to therapist. Thank you for your referral.
== END 2021-07-13 11:53 | disposition home or self-care (01) ==
LOC: HO.PT 10:00
PROVIDERS: PCP Family Medicine; Visit Provider Physician Assistant
DX: M17.11 Unilateral primary osteoarthritis, right knee (principal)
CPT/HCPCS: 97110; 97161; 97530

== ENCOUNTER 2021-07-20 09:07 | Outpatient (REF) | payer MEDICAID, SELFPAY ==
[2021-07-20 09:26] LABS: MANUAL DIFF FLAG NO
[2021-07-20 10:04] LABS: Basophils Percent Auto 0.4 % (0-2); Eosinophils Absolute Auto 0.4 X10*3/uL (0.0-0.4); Eosinophils Percent Auto 4.6 % (0-4); Hematocrit 42.4 % (42-52); Hemoglobin 14.2 g/dl (14.0-18.0); Imm Gran Abs Auto 0.02 X10*3/uL (0.00-0.03); Imm Gran Pct Auto 0.3 % (0.0-0.4); Lymphocytes Percent Auto 52.7 % (20-40); Mean Corpuscular HGB Conc 33.5 g/dl (31.0-36.0); Mean Corpuscular Hemoglobin 30.8 pg (27.0-33.0); Mean Platelet Volume 9.1 fL (9.4-12.4); Monocytes Absolute Auto 0.6 X10*3/uL (0.1-1.2); Neutrophils Absolute Auto 2.6 X10*3/uL (2.0-8.3); Platelet Count 290 X10*3/uL (160-400); Red Blood Count 4.61 X10*6/uL (4.60-5.80); Red Cell Distribution Width 12.8 % (11.0-16.0); White Blood Count 7.5 X10*3/uL (4.8-10.8)
[2021-07-20 10:34] LABS: Alanine Aminotransferase 43 U/L (0-40); Albumin Level 4.4 g/dL (3.5-5.0); Alkaline Phosphatase 119 U/L (39-117); Anion Gap 9 (12-20); Aspartate Amino Transferase 31 U/L (5-37); Bilirubin Total 0.5 mg/dL (0.0-1.0); Blood Urea Nitrogen 15 mg/dL (9-16); C Reactive Protein 0.24 mg/dL (< or = 0.50); Carbon Dioxide 28 mmol/L (22-29); Chloride 108 mmol/L (96-108); Estimated Glomerular Filt Rate > 60; Glucose Random 115 mg/dL (60-115); Potassium 5.3 mmol/L (3.3-5.1); Sodium 140 mmol/L (135-145); Total Protein 7.1 g/dL (6.5-8.0)
[2021-07-20 10:52] LABS: Erythrocyte Sedimentation Rate 4 MM/HR (0-15)
== END 2021-07-20 09:08 | disposition home or self-care (01) ==
LOC: HO.LAB 09:07
PROVIDERS: PCP Family Medicine; Visit Provider Student in an Organized Health Care Education/Training Program
DX: L40.50 Arthropathic psoriasis, unspecified (principal)
CPT/HCPCS: 36415; 80053; 85025; 85652; 86140

== ENCOUNTER 2021-07-22 08:37 | Outpatient (REF) | payer MEDICAID, SELFPAY ==
[2021-07-22 09:41] LABS: Alanine Aminotransferase 36 U/L (0-40); Albumin Level 4.3 g/dL (3.5-5.0); Alkaline Phosphatase 105 U/L (39-117); Anion Gap 11 (12-20); Aspartate Amino Transferase 29 U/L (5-37); Bilirubin Total 0.6 mg/dL (0.0-1.0); Blood Urea Nitrogen 16 mg/dL (9-16); Calcium 9.3 mg/dL (8.4-10.2); Carbon Dioxide 27 mmol/L (22-29); Chloride 108 mmol/L (96-108); Estimated Glomerular Filt Rate > 60; Glucose Random 114 mg/dL (60-115); Potassium 4.1 mmol/L (3.3-5.1); Sodium 142 mmol/L (135-145); Total Protein 6.8 g/dL (6.5-8.0)
== END 2021-07-22 08:38 | disposition home or self-care (01) ==
LOC: HO.LAB 08:37
PROVIDERS: PCP Family Medicine; Visit Provider Nurse Practitioner Family
DX: E87.5 Hyperkalemia (principal)
CPT/HCPCS: 36415; 80053

== ENCOUNTER → 2021-07-29 10:49 | Outpatient (BNVA) | payer MEDICAID, SELFPAY | PROVIDERS: PCP Family Medicine; Visit Provider Nurse Practitioner Family | DX: L40.50 Arthropathic psoriasis, unspecified (principal); M47.816 Spondylosis without myelopathy or radiculopathy, lumbar region | CPT/HCPCS: 99212 ==

== ENCOUNTER → 2021-08-02 10:45 | Outpatient (BNVA) | payer MEDICAID, SELFPAY | PROVIDERS: PCP Family Medicine; Visit Provider Anesthesiology | DX: M50.30 Other cervical disc degeneration, unspecified cervical region (principal); M47.812 Spondylosis without myelopathy or radiculopathy, cervical region; M47.816 Spondylosis without myelopathy or radiculopathy, lumbar region; G89.4 Chronic pain syndrome | CPT/HCPCS: 99212 ==

== ENCOUNTER → 2021-08-16 07:47 | Outpatient (REF) | payer MEDICAID, SELFPAY ==
--- NOTE | ~2021-08-16 | NM_ITS ---
EXAMINATION: WV RADIONUCLIDE SOLID FOOD GASTRIC EMPTYING 4-HOUR STUDY CLINICAL INFORMATION: Early satiety. COMPARISON: None TECHNIQUE: A standard meal consisting of 4 oz of Egg Beaters brand tagged with 0.87 mCi Tc-99m Sulfur Colloid, 8 oz water and 2 slices of toast with jelly was administered orally to the patient. Images were obtained using a dual head gamma camera in the anterior and posterior projections over of the stomach immediately post ingestion and at hourly intervals up to 4 hours post ingestion. The anterior and posterior counts at each time interval were averaged using the geometric mean and expressed as percentage of the immediate post ingestion counts. FINDINGS: There is good visualization of activity in the stomach immediately post ingestion. As the study progresses, there is good clearance of activity from the stomach and visualization of progressively increasing small bowel activity. By the end of the study, there is almost no retention noted in the stomach. Retention in the stomach at each time interval was: 1 hour 74% (normal 37%-90%) 2 hours 37% (normal 30%-60%) 3 hours 15% 4 hours 1% (normal 0%-10%) WV/WV gastric emptying study IMPRESSION: Normal 4-hour solid food gastric emptying study.
== END ==
LOC: HO.NUCMED 07:47
PROVIDERS: PCP Family Medicine; Visit Provider Internal Medicine Gastroenterology
DX: R68.81 Early satiety (principal)
CPT/HCPCS: 78264; A9541

== ENCOUNTER → 2021-08-17 10:12 | Outpatient (BNVA) | payer MEDICAID, SELFPAY | PROVIDERS: PCP Family Medicine; Visit Provider Internal Medicine Pulmonary Disease | DX: G47.33 Obstructive sleep apnea (adult) (pediatric) (principal) | CPT/HCPCS: 99212 ==

== ENCOUNTER 2021-08-27 11:56 | Day surgery (SDC) | payer MEDICAID, SELFPAY ==
--- NOTE | 2021-08-26 10:58 | HO.ANESPROP2 ---
Documented by User: Sophy Styles NP 08/26/21 11:01 HPI - Anesthesia Eval Consult details Narrative: 56yo M for Bilateral Therapeutic L3-DR L5 Medial Branch Blocks s/p EGD 04/2021 with MAC PMFSH Active Problems Active Problems: All Active Problems (Updated 08/17/21 @ 10:52 by Gamaliel Jimenez MD) DAYNA (obstructive sleep apnea) (Acute) Patellofemoral arthritis of right knee (Acute) Spondylosis of thoracic spine (Acute) Spondylosis of lumbar spine (Acute) Osteoarthritis of left hip (Acute) Dyspnea (Acute) Nonalcoholic steatohepatitis (CROSS) (Acute) Leg pain (Acute) Avascular necrosis of bone of left hip (Acute) Trochanteric bursitis of left hip (Acute) Trochanteric bursitis of right hip (Acute) Liver cyst (Acute) SOB (shortness of breath) (Acute) Back pain (Acute) Right sided numbness (Acute) Psoriasis (Acute) Psoriatic arthritis (Acute) Chronic pain syndrome (Acute) Spondylosis of lumbar region without myelopathy or radiculopathy (Acute) Spondylosis, cervical (Acute) Degeneration, intervertebral disc, cervical (Acute) Past Medical History Medical History Asthma Avascular necrosis Chronic pain Chronic pain syndrome Degeneration, intervertebral disc, cervical Depression Dysphagia Fatty liver HTN (hypertension) Hx of chest pain Hypothyroid Kidney cysts Mood disorder DAYNA on CPAP Pre-diabetes Psoriasis Psoriatic arthritis Schatzki's ring 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 Spondylosis, cervical Family History Family History Father Cirrhosis Alcoholism Mother Diabetes HTN (hypertension) Parkinson disease Brother Cirrhosis Alcoholism Family history of problems with anesthesia: No Surgical History Surgical History H/O neck surgery History of colonoscopy Hx of endoscopy Hx of hand surgery History of Problems with Anesthesia: No Social History Social History Household Members: Spouse and Children Are you a primary memory care director to a significant other at home: No Do you presently have visiting nurse or other home services: No Alcohol intake: never Patient Tobacco Use Status: Never used Tobacco Second Hand Smoke Exposure: No Use of substances other than those prescribed or required for medical reasons: No Are you DNR?: No Advance Directives: No Advance Directives Information Provided: Yes Advance Directives on File: No Current occupational status: disabled Current occupation: rt handed Meds Allergies Allergy/AdvReac Type Severity Reaction Status Date / Time No Known Allergies Allergy Verified 08/17/21 10:19 [No Known Allergies*] Home Medications Medication Instructions Recorded Confirmed Last Taken Type albuterol sulfate 90 mcg/actuation 2 puff INHALATION Q6H PRN 08/10/20 04/29/21 Unknown History aerosol inhaler (ProAir HFA) amitriptyline 25 mg tablet 25 mg PO BEDTIME 08/10/20 04/29/21 Unknown History buspirone 10 mg tablet 10 mg PO TID 08/10/20 04/29/21 Unknown History escitalopram oxalate 20 mg tablet 20 mg PO DAILY 08/10/20 04/29/21 Unknown History fluticasone propionate 50 1 spray INTRANASAL DAILY 08/10/20 04/29/21 Unknown History mcg/actuation nasal spray,suspension baclofen 10 mg tablet 10 mg PO DAILY 11/11/20 04/29/21 Unknown History levothyroxine 50 mcg capsule 50 mcg PO DAILY 11/11/20 04/29/21 05/06/21 History amlodipine 2.5 mg tablet 2.5 mg PO DAILY 03/29/21 04/29/21 Unknown History gabapentin 300 mg capsule 300 mg PO TID 03/29/21 04/29/21 Unknown History loratadine 10 mg capsule 10 mg PO DAILY 03/29/21 04/29/21 Unknown History tizanidine 2 mg capsule 2 mg PO BEDTIME 03/31/21 04/29/21 Unknown History docusate sodium 100 mg capsule 1 cap PO BID 04/29/21 04/29/21 Unknown History Exam Exam Date and Time: August 26, 2021 1058 Pertinent Lab Results Pertinent Lab Results: Laboratory Tests 07/20/21 07/22/21 09:23 08:49 WBC 7.5 Hgb 14.2 Hct 42.4 Plt Count 290 Sodium 142 Potassium 4.1 D Chloride 108 Carbon Dioxide 27 BUN 16 Creatinine 1.13 Narrative Narrative: EKG 03/2021 NSR Transthoracic echocardiogram performed on 09/16/2020 showing EF 65-70%.? Diastolic function was normal.? Normal right ventricular function.? No significant valvular or pericardial pathology. stress echocardiogram on 09/17/2020 where he was able to exercise for 7.5 Mets and stopped because of right knee pain.? No ischemic changes were noticed on the EKG.? The stress echocardiogram part showed no evidence of exercise induced wall motion abnormality.? There was normal decrease in end systolic volume post exercise.? Overall it was a normal study at the level of exertion he could achieve. Assessment and Plan Assessment Anesthesia Assessment: Chart Reviewed Final Anesthetic Review Family History of Problems with Anesthesia: No History of Problems with Anesthesia: No Documented by User: Chyna Roberts MD 08/27/21 15:45 [facility] Active Problems Active Problems: All Active Problems (Updated 08/17/21 @ 10:52 by Gamaliel Jimenez MD) DAYNA (obstructive sleep apnea) (Acute). CPAP recommended. Has not started. Patellofemoral arthritis of right knee (Acute) Spondylosis of thoracic spine (Acute) Spondylosis of lumbar spine (Acute) Osteoarthritis of left hip (Acute) Dyspnea (Acute) Nonalcoholic steatohepatitis (CROSS) (Acute) Leg pain (Acute) Avascular necrosis of bone of left hip (Acute) Trochanteric bursitis of left hip (Acute) Trochanteric bursitis of right hip (Acute) Liver cyst (Acute) SOB (shortness of breath) (Acute) Back pain (Acute) Right sided numbness (Acute) Psoriasis (Acute) Psoriatic arthritis (Acute) Chronic pain syndrome (Acute) Spondylosis of lumbar region without myelopathy or radiculopathy (Acute) Spondylosis, cervical (Acute) Degeneration, intervertebral disc, cervical (Acute) Interstitial lung disease Past Medical History Medical History Asthma Avascular necrosis Chronic pain Chronic pain syndrome Degeneration, intervertebral disc, cervical Depression Dysphagia Fatty liver HTN (hypertension) Hx of chest pain Hypothyroid Kidney cysts Mood disorder DAYNA on CPAP Pre-diabetes Psoriasis Psoriatic arthritis Schatzki's ring 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 Spondylosis, cervical Family History Family History Father Cirrhosis Alcoholism Mother Diabetes HTN (hypertension) Parkinson disease Brother Cirrhosis Alcoholism Surgical History Surgical History H/O neck surgery History of colonoscopy Hx of endoscopy Hx of hand surgery Social History Social History Household Members: Spouse and Children Are you a primary memory care director to a significant other at home: No Do you presently have visiting nurse or other home services: No Alcohol intake: never Patient Tobacco Use Status: Never used Tobacco Second Hand Smoke Exposure: No Use of substances other than those prescribed or required for medical reasons: No Are you DNR?: No Advance Directives: No Advance Directives Information Provided: Yes Advance Directives on File: No Current occupational status: disabled Current occupation: rt handed Meds Allergies Allergy/AdvReac Type Severity Reaction Status Date / Time No Known Allergies Allergy Verified 08/17/21 10:19 [No Known Allergies*] Home Medications Medication Instructions Recorded Confirmed Last Taken Type albuterol sulfate 90 mcg/actuation 2 puff INHALATION Q6H PRN 08/10/20 04/29/21 Unknown History aerosol inhaler (ProAir HFA) amitriptyline 25 mg tablet 25 mg PO BEDTIME 08/10/20 04/29/21 Unknown History buspirone 10 mg tablet 10 mg PO TID 08/10/20 04/29/21 Unknown History escitalopram oxalate 20 mg tablet 20 mg PO DAILY 08/10/20 04/29/21 Unknown History fluticasone propionate 50 1 spray INTRANASAL DAILY 08/10/20 04/29/21 Unknown History mcg/actuation nasal spray,suspension baclofen 10 mg tablet 10 mg PO DAILY 11/11/20 04/29/21 Unknown History levothyroxine 50 mcg capsule 50 mcg PO DAILY 11/11/20 04/29/21 05/06/21 History amlodipine 2.5 mg tablet 2.5 mg PO DAILY 03/29/21 04/29/21 Unknown History gabapentin 300 mg capsule 300 mg PO TID 03/29/21 04/29/21 Unknown History loratadine 10 mg capsule 10 mg PO DAILY 03/29/21 04/29/21 Unknown History tizanidine 2 mg capsule 2 mg PO BEDTIME 03/31/21 04/29/21 Unknown History docusate sodium 100 mg capsule 1 cap PO BID 04/29/21 04/29/21 Unknown History Exam Height,Weight and Vital Signs: Height 5 ft 3 in Weight 78.471 kg Vital Signs Temp Pulse Resp BP Pulse Ox 08/27/21 13:36 97.3 F 75 16 117/79 96 Airway Mallampati Class: II TM Dist: >3cm Neck ROM: Limited Loose/Missing/Broken Teeth: No Heart: RRR Lungs: CTAB Assessment and Plan Assessment Anesthesia Assessment: Anesthesia Plan Discussed Final Anesthetic Review NPO: Yes ASA Class: III Final Preanesthetic Review: No Changes in Pt Med Stat, Meds/Allgs Chart Reviewed, Consent Obtained/Reviewed and Anes Risks/Benef Reviewed Patient Risk: Intermediate Procedure Risk: Low Assessment/Block/Sedation in SS: Assess/Block/Sedation-SS Anesthetic Plan Anesthetic Plan: MAC: Disposition: Standard PACU
--- NOTE | ~2021-08-27 | FL_ITS ---
EXAMINATION: XR FLUOROSCOPY WITH IMAGES CLINICAL INFORMATION: Medial branch block. COMPARISON: MRI lumbar spine 06/24/2021 TECHNIQUE: Fluoroscopy performed by Dr. Winston Boykin. Fluoroscopy time: 0.5 minutes DAP: 5.44 mGycm2 Images: 6 FINDINGS: There are spinal needles overlying the bilateral outer L3, L4, and L5 neural foramen. There is contrast seen in the respective nerve sheaths. Some early transforaminal epidural extension is suggested. No visible vascular communication. FL/FL guidance in OR IMPRESSION: Fluoroscopy for pain management procedures.
--- NOTE | 2021-08-27 07:53 | MHC.SHP ---
Pre-Procedural Eval Section A Date of Service: 08/27/21 The patient is an INPATIENT: No Changes since office visit: Yes Patient answered all questions The History & Physical has been completed within 30 days and I have reviewed it.: No Section B Chief Complaint: spondylosis Details of Present Illness: as above Relevant Family History (Specify if Yes): No Relevant Social History: None Present Medications: see Short Stay Collaborative assessment Medical History: No relevant PMH History of Previous Operations: No relevant previous surgery Allergies: Allergies Allergy/AdvReac Type Severity Reaction Status Date / Time No Known Allergies Allergy Verified 08/17/21 10:19 [No Known Allergies*] Review of Systems Sugical H&P ROS: Negative: Constitution, Cardiovascular, Respiratory, Neurological, Psychiatric, Hem-Onc, Allergic/Immunologic, Gastrointestinal, Genitourinary, Musculoskeletal, Integumentary, Endocrine and Eyes/Ears/Nose/Throat Exam Surgical H&P Exam: Normal: HEENT, Normal: Heart, Normal: Lungs, Normal: Extremities, Normal: Abdomen, Normal: Skin and Normal: Neurological Plan Diagnosis/Plan: Unchanged I have reviewed the history and physical and performed a pertinent physical examination on my patient. No changes have occurred unless specified.
[2021-08-27 13:36] VITALS: BP 117/79; PULSE 75; RESP 16; TEMP 36.3; O2SAT 96; BMI 30.6
[2021-08-27] MEDS: Lactated Ringers 1,000 ML 100 ML IVCONT (13:56)
--- NOTE | 2021-08-27 15:24 | P.OP_ITS ---
Operative Note Operative Note Date of Service: 08/27/21 Narrative: Kvng is very pleasant 56 years old gentleman who is suffering from spondylosis of lumbar spine. He came today to the operating room to perform bilateral therapeutic L3-L4 dorsal ramus L5 medial branch block. After obtain ing informed consent where risk and benefits were carefully explained to the patient he was taking to the operating room and positioned prone on the operating table. Time-out was performed delineating risk and benefits of the procedure name and date of of the patient, allergies, DVT prophylaxis need, risk of fire antibiotic needs. Patient's lower back was prepped with ChloraPrep and draped with sterile utility towels. C-arm was brought over the operating field and picture of L4 and L5 vertebra at as well as sacral bone were demonstrated on the screen. The point of interest were delineated as bilateral connection of superior articular processes of L4 vertebrae with corresponding transverse processes, as well as bilateral connection of superior articular process of L5 with corresponding transverse processes as well as bilateral connection of superior articular process of S1 with sacral alae. The projection of the point of interest to the skin were injected with lidocaine 2% and after that 22 gauge 3-1/2 inch needle was injected sequentially to each point and driven to were the point of interests in tunnel vision fashion. When needle gently contacted the bone injection of the contrast was performed demonstrating no intravascular and no intrathecal uptake of the contrast. After that treatment solution of bupivacaine 0.5% mixed with Kenalog was injected into each side total dose of Kenalog was 80 mg. Upon completion of the procedure needles were removed sterile dressing was applied. Patient was taken outside of the operating room to recovery room where he recovered uneventfully.
--- NOTE | 2021-08-27 16:02 | PM.OP ---
Brief Operative Note Date of Service: 08/27/21 Pre-op diagnosis: Spondylosis lumbar spine Post-op diagnosis: same Procedure: Bilateral therapeutic L3, L4, dorsal ramus L5 medial branch block Implants: In a Surgeon: Winston Boykin MD Anesthesia: MAC Was an [employer] Worker Helper used for this Procedure?: No Estimated blood loss (mL): 0 Pathology: none sent Condition: stable Disposition: PACU
[2021-08-27 16:05] VITALS: BP 133/86; PULSE 81; RESP 17; TEMP 36.5; O2SAT 97
[2021-08-27 16:20] VITALS: BP 134/95; PULSE 70; RESP 16; TEMP 36.4; O2SAT 99
[2021-08-27 16:35] VITALS: BP 132/78; PULSE 70; RESP 18; TEMP 36.4; O2SAT 98
== END 2021-08-27 17:11 | disposition home or self-care (01) ==
PROVIDERS: PCP Family Medicine; Visit Provider Anesthesiology
PROC: (CPT 64493; principal; 2021-08-27 13:50)
DX: M47.816 Spondylosis without myelopathy or radiculopathy, lumbar region (principal); G89.4 Chronic pain syndrome; M47.812 Spondylosis without myelopathy or radiculopathy, cervical region; M47.814 Spondylosis without myelopathy or radiculopathy, thoracic region; M50.30 Other cervical disc degeneration, unspecified cervical region; G89.29 Other chronic pain; M87.9 Osteonecrosis, unspecified; L40.50 Arthropathic psoriasis, unspecified; J45.909 Unspecified asthma, uncomplicated; G47.33 Obstructive sleep apnea (adult) (pediatric); R73.03 Prediabetes; F32.9 Major depressive disorder, single episode, unspecified; I10 Essential (primary) hypertension; Z79.51 Long term (current) use of inhaled steroids; Z79.899 Other long term (current) drug therapy
CPT/HCPCS: 64493; 64494; J2250; J3010; J3300; Q9967

== ENCOUNTER → 2021-08-30 08:07 | Outpatient (BNVA) | payer MEDICAID, SELFPAY | PROVIDERS: PCP Family Medicine; Referring Provider Family Medicine; Visit Provider Internal Medicine Gastroenterology | DX: K76.89 Other specified diseases of liver (principal); N28.1 Cyst of kidney, acquired; R14.1 Gas pain | CPT/HCPCS: 99212 ==

== ENCOUNTER 2021-08-30 08:51 | Emergency (ER) | payer MEDICAID, SELFPAY ==
--- NOTE | 2021-08-30 | ECG_ITS ---
Test Reason : COUGH Blood Pressure : / mmHG Vent. Rate : 068 BPM Atrial Rate : 068 BPM P-R Int : 160 ms QRS Dur : 084 ms QT Int : 352 ms P-R-T Axes : 041 017 022 degrees QTc Int : 374 ms Normal sinus rhythm Normal ECG When compared with ECG of 10-MAR-2020 17:07, No significant changes seen Referred By: Generic ED Physician Electronically Signed By:ANNE LOPEZ MD
--- NOTE | ~2021-08-30 | XR_ITS ---
EXAMINATION: XR CHEST CLINICAL INFORMATION: Cough, chest pain COMPARISON: Chest radiographs 10/16/2020, 03/10/2020 TECHNIQUE: 2 views of the chest were obtained. FINDINGS: The lungs are clear. There is no pneumothorax, airspace opacity or effusion. The costophrenic sulci are well-defined. The heart is normal in size. The hilar and mediastinal contours are normal. No visible acute bony abnormality. XR/XR chest 2V IMPRESSION: Unremarkable examination.
[2021-08-30 09:21] VITALS: BP 152/97; PULSE 72; RESP 16; TEMP 36.8; O2SAT 96; BMI 29.0
--- NOTE | 2021-08-30 09:50 | ED_ITS ---
HPI - Chest Pain General Chief Complaint: Chest Pain Stated Complaint: chest pain Time Seen by Provider: 08/30/21 09:50 Source: patient Mode of arrival: ambulatory Limitations: language barrier History of Present Illness HPI narrative: On Monday he had a lumbar injection, he since then developed a cough and feels abdominal gas and neck pain. He has burning in his throat. His discomfort since Monday has been constant. In September last year had a stress echo that was normal. MD complaint: chest pain and chest heaviness Onset (ago): day(s) Timing of current episode: constant Severity: mild Quality: heaviness Related Data Home Medications Medication Instructions Recorded Confirmed albuterol sulfate 90 mcg/actuation 2 puff INHALATION Q6H PRN 08/10/20 04/29/21 aerosol inhaler (ProAir HFA) amitriptyline 25 mg tablet 25 mg PO BEDTIME 08/10/20 04/29/21 buspirone 10 mg tablet 10 mg PO TID 08/10/20 04/29/21 escitalopram oxalate 20 mg tablet 20 mg PO DAILY 08/10/20 04/29/21 fluticasone propionate 50 1 spray INTRANASAL DAILY 08/10/20 04/29/21 mcg/actuation nasal spray,suspension baclofen 10 mg tablet 10 mg PO DAILY 11/11/20 04/29/21 levothyroxine 50 mcg capsule 50 mcg PO DAILY 11/11/20 04/29/21 amlodipine 2.5 mg tablet 2.5 mg PO DAILY 03/29/21 04/29/21 gabapentin 300 mg capsule 300 mg PO TID 03/29/21 04/29/21 loratadine 10 mg capsule 10 mg PO DAILY 03/29/21 04/29/21 tizanidine 2 mg capsule 2 mg PO BEDTIME 03/31/21 04/29/21 docusate sodium 100 mg capsule 1 cap PO BID 04/29/21 04/29/21 atorvastatin 40 mg tablet 40 mg PO DAILY 08/30/21 buspirone 15 mg tablet 15 mg PO TID 08/30/21 loratadine 10 mg tablet 10 mg PO DAILY 08/30/21 Previous Rx's Medication Instructions Recorded acetaminophen 650 mg 650 mg PO Q8H PRN #90 tab 02/16/21 tablet,extended release etanercept 50 mg/mL (1 mL) 50 mg SUBCUT QWEEK #4 ml 05/25/21 subcutaneous pen injector (Enbrel SureClick) omeprazole 40 mg capsule,delayed 40 mg PO BID #90 cap 06/08/21 release fluticasone 250 mcg-salmeterol 50 1 ea PO BID 30 Days #60 cap 08/16/21 mcg/dose blistr powdr for inhalation (Advair Diskus) naproxen 375 mg tablet 375 mg PO BID #20 tab 08/30/21 sucralfate 100 mg/mL oral 10 ml PO BID #1000 ml 08/30/21 suspension (Carafate) Allergies Allergy/AdvReac Type Severity Reaction Status Date / Time No Known Allergies Allergy Verified 08/30/21 08:23 [No Known Allergies*] Review of Systems Constitutional: Constitutional: Reports no additional constitutional complaints Eyes: Eyes: Reports no additional eye complaints ENT: Denies dizziness Cardiovascular: Cardiovascular: Reports no additional cardiovascular complaints Respiratory: Respiratory: Reports as per HPI Gastrointestinal: Gastrointestinal: Reports no additional gastrointestinal complaints Musculoskeletal: Musculoskeletal: Reports no additional musculoskeletal complaints Integumentary/Breasts: Skin/Breast: Denies rash Neurologic: Reports system reviewed and no additional complaints, except as documented, Denies dizziness and Denies Sensory deficit (Neuro) Psychiatric: Psychiatric: Denies anxiety PMFSH Past Medical History Medical History Asthma Avascular necrosis Chronic pain Chronic pain syndrome Degeneration, intervertebral disc, cervical Depression Dysphagia Fatty liver HTN (hypertension) Hx of chest pain Hypothyroid Kidney cysts Mood disorder DAYNA on CPAP Pre-diabetes Psoriasis Psoriatic arthritis Schatzki's ring 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 Spondylosis, cervical Surgical History H/O neck surgery History of colonoscopy Hx of endoscopy Hx of hand surgery Family History Family History Father Cirrhosis Alcoholism Mother Diabetes HTN (hypertension) Parkinson disease Brother Cirrhosis Alcoholism Social History Social History Household Members: Spouse and Children Are you a primary primary health care nurse to a significant other at home: No Do you presently have visiting nurse or other home services: No Alcohol intake: never Patient Tobacco Use Status: Never used Tobacco Second Hand Smoke Exposure: No Use of substances other than those prescribed or required for medical reasons: No Advance Directives: No Advance Directives Information Provided: No Current occupational status: disabled Current occupation: rt handed Physical Exam Vital Signs: Vital Signs: Last Vital Signs Temp 98.3 F 08/30/21 09:21 Pulse 72 08/30/21 09:21 Resp 16 08/30/21 09:21 BP 152/97 H 08/30/21 09:21 Pulse Ox 96 08/30/21 09:21 Body Mass Index 29.0 Neuro: Sensory Exam: No Sensory deficit (Neuro) Course Reevaluation(s) Reevaluation #1: patient with sore throat and laryngitis, WBC 13.6 but no erythema no swelling no neck swelling. The rest of his workup including cardiac and CXR are normal will dc home with viral pharyngitis. Time: 12:11 MDM - Chest Pain Lab Data Result diagrams: 08/30/21 10:01 08/30/21 10:01 Labs: Lab Results 08/30/21 08/30/21 08/30/21 Range/Units 09:26 10:01 10:01 WBC 13.6 H (4.8-10.8) X10*3/uL RBC 4.56 L (4.60-5.80) X10*6/uL Hgb 13.9 L (14.0-18.0) g/dl Hct 42.1 (42.0-52.0) % MCV 92.3 (80.0-98.0) fL MCH 30.5 (27.0-33.0) pg MCHC 33.0 (31.0-36.0) g/dl RDW 13.3 (11.0-16.0) % Plt Count 319 (160-400) X10*3/uL MPV 8.7 L (9.4-12.4) fL Immature Gran % (Auto) 1.0 H (0.0-0.4) % Neut % (Auto) 68.6 (45-73) % Lymph % (Auto) 23.1 (20-40) % [place] % (Auto) 7.2 (2-11) % Eos % (Auto) 0.0 (0-4) % Baso % (Auto) 0.1 (0-2) % Lymph # (Auto) 3.1 (1.2-4.9) X10*3/uL [place] # (Auto) 1.0 (0.1-1.2) X10*3/uL Eos # (Auto) 0.0 (0.0-0.4) X10*3/uL Baso # (Auto) 0.0 (0.0-0.2) X10*3/uL Abs Immat Gran (auto) 0.13 H (0.00-0.03) X10*3/uL Absolute Neuts (auto) 9.3 H (2.0-8.3) x10*3/uL Absolute Nucleated RBC 0.000 (0.0-0.012) X10*3/uL Nucleated RBC % (auto) 0.0 (0.0-0.2) /100WBC Sodium 139 (135-145) mmol/L Potassium 4.5 (3.3-5.1) mmol/L Chloride 110 H (96-108) mmol/L Carbon Dioxide 22 (22-29) mmol/L Anion Gap 12 (12-20) BUN 18 H (9-16) mg/dL Creatinine 1.03 (0.5-1.4) mg/dL Estim Creat Clear Calc 70.6 Estimated GFR > 60 Random Glucose 138 H (60-115) mg/dL Calcium 10.3 H D (8.4-10.2) mg/dL Troponin I High Sens (<3.5-35.0) ng/L COVID-19 ([facility]O) Negative (Negative) COVID-19 Clin Com See Note 08/30/21 Range/Units 10:01 WBC (4.8-10.8) X10*3/uL RBC (4.60-5.80) X10*6/uL Hgb (14.0-18.0) g/dl Hct (42.0-52.0) % MCV (80.0-98.0) fL MCH (27.0-33.0) pg MCHC (31.0-36.0) g/dl RDW (11.0-16.0) % Plt Count (160-400) X10*3/uL MPV (9.4-12.4) fL Immature Gran % (Auto) (0.0-0.4) % Neut % (Auto) (45-73) % Lymph % (Auto) (20-40) % [place] % (Auto) (2-11) % Eos % (Auto) (0-4) % Baso % (Auto) (0-2) % Lymph # (Auto) (1.2-4.9) X10*3/uL [place] # (Auto) (0.1-1.2) X10*3/uL Eos # (Auto) (0.0-0.4) X10*3/uL Baso # (Auto) (0.0-0.2) X10*3/uL Abs Immat Gran (auto) (0.00-0.03) X10*3/uL Absolute Neuts (auto) (2.0-8.3) x10*3/uL Absolute Nucleated RBC (0.0-0.012) X10*3/uL Nucleated RBC % (auto) (0.0-0.2) /100WBC Sodium (135-145) mmol/L Potassium (3.3-5.1) mmol/L Chloride (96-108) mmol/L Carbon Dioxide (22-29) mmol/L Anion Gap (12-20) BUN (9-16) mg/dL Creatinine (0.5-1.4) mg/dL Estim Creat Clear Calc Estimated GFR Random Glucose (60-115) mg/dL Calcium (8.4-10.2) mg/dL Troponin I High Sens < 3.5 (<3.5-35.0) ng/L COVID-19 ([facility]) (Negative) COVID-19 Clin Com ECG Data ECG #1: Attestation: I personally reviewed and interpreted this ECG as follows: Interpretation: sinus 70, st elevation V2-V4 which looks old from September 2020. Discharge Plan Discharge Clinical Impression: Atypical chest pain Pharyngitis Qualifiers: Pharyngitis/tonsillitis etiology: unspecified etiology Qualified Code(s): J02.9 - Acute pharyngitis, unspecified Patient Disposition: Home, Self-Care Instructions: Pharyngitis (ED), Noncardiac Chest Pain (ED) Prescriptions: New naproxen 375 mg tablet 375 mg PO BID Qty: 20 RF: 0 No Action acetaminophen 650 mg tablet extended release 650 mg PO Q8H PRN (Reason: pain) Qty: 90 RF: 3 Enbrel SureClick 50 mg/mL (1 mL) pen injector 50 mg subcut QWEEK Qty: 4 RF: 3 fluticasone propion-salmeterol [Advair Diskus] 250-50 mcg/dose blister with device 1 ea PO BID 30 Days Qty: 60 RF: 6 docusate sodium 100 mg capsule 1 cap PO BID RF: 0 amitriptyline 25 mg tablet 25 mg PO BEDTIME RF: 0 buspirone 10 mg tablet 10 mg PO TID RF: 0 escitalopram oxalate 20 mg tablet 20 mg PO DAILY RF: 0 albuterol sulfate [ProAir HFA] 90 mcg/actuation HFA aerosol inhaler 2 puff inhalation Q6H PRN (Reason: Wheezing) RF: 0 fluticasone propionate 50 mcg/actuation spray,suspension 1 spray intranasal DAILY RF: 0 tizanidine 2 mg capsule 2 mg PO BEDTIME RF: 0 omeprazole 40 mg capsule,delayed release(DR/EC) 40 mg PO BID Qty: 90 RF: 2 buspirone 15 mg tablet 15 mg PO TID RF: 0 loratadine 10 mg tablet 10 mg PO DAILY RF: 0 atorvastatin 40 mg tablet 40 mg PO DAILY RF: 0 sucralfate [Carafate] 100 mg/mL suspension 10 ml PO BID Qty: 1000 RF: 0 amlodipine 2.5 mg tablet 2.5 mg PO DAILY RF: 0 loratadine 10 mg capsule 10 mg PO DAILY RF: 0 gabapentin 300 mg capsule 300 mg PO TID RF: 0 baclofen 10 mg tablet 10 mg PO DAILY RF: 0 levothyroxine 50 mcg capsule 50 mcg PO DAILY RF: 0 Referrals: Koki Vu MD [Primary Care Provider] - 1 week
[2021-08-30 09:57] LABS: COVID-19 Test Negative (Negative); IDNOW Serial# 9DD0AD1C
[2021-08-30 10:06] LABS: MANUAL DIFF FLAG NO
[2021-08-30 10:07] LABS: Basophils Percent Auto 0.1 % (0-2); Hematocrit 42.1 % (42.0-52.0); Hemoglobin 13.9 g/dl (14.0-18.0); Imm Gran Abs Auto 0.13 X10*3/uL (0.00-0.03); Lymphocytes Absolute Auto 3.1 X10*3/uL (1.2-4.9); Lymphocytes Percent Auto 23.1 % (20-40); Mean Corpuscular Hemoglobin 30.5 pg (27.0-33.0); Mean Corpuscular Volume 92.3 fL (80.0-98.0); Mean Platelet Volume 8.7 fL (9.4-12.4); Monocytes Percent Auto 7.2 % (2-11); Neutrophils Absolute Auto 9.3 x10*3/uL (2.0-8.3); Neutrophils Percent Auto 68.6 % (45-73); Platelet Count 319 X10*3/uL (160-400); Red Blood Count 4.56 X10*6/uL (4.60-5.80); Red Cell Distribution Width 13.3 % (11.0-16.0); White Blood Count 13.6 X10*3/uL (4.8-10.8)
[2021-08-30 10:25] LABS: Anion Gap 12 (12-20); Blood Urea Nitrogen 18 mg/dL (9-16); Calcium 10.3 mg/dL (8.4-10.2); Carbon Dioxide 22 mmol/L (22-29); Chloride 110 mmol/L (96-108); Creatinine Clr Calc Pharmacy 70.6; Estimated Glomerular Filt Rate > 60; Glucose Random 138 mg/dL (60-115); Potassium 4.5 mmol/L (3.3-5.1); Sodium 139 mmol/L (135-145)
[2021-08-30 10:34] LABS: Troponin-I High Sensitivity < 3.5 ng/L (<3.5-35.0)
== END 2021-08-30 12:32 | disposition home or self-care (01) ==
PROVIDERS: Emergency Provider Emergency Medicine; PCP Family Medicine
DX: R07.89 Other chest pain (principal); J02.9 Acute pharyngitis, unspecified; Z20.822 Contact with and (suspected) exposure to COVID-19; I10 Essential (primary) hypertension; Z79.899 Other long term (current) drug therapy
CPT/HCPCS: 36415; 71046; 80048; 84484; 85025; 87635; 93005; 99202; 99283; 99284

== ENCOUNTER → 2021-09-27 08:26 | Outpatient (BNVA) | payer MEDICAID, SELFPAY | PROVIDERS: PCP Family Medicine; Referring Provider Family Medicine; Visit Provider Internal Medicine Cardiovascular Disease | DX: R07.9 Chest pain, unspecified (principal) | CPT/HCPCS: 99212 ==

== ENCOUNTER 2021-09-29 08:32 | Outpatient (REF) | payer MEDICAID, SELFPAY ==
[2021-09-29 09:24] LABS: Hemoglobin 14.5 g/dl (14.0-18.0); Mean Corpuscular Hemoglobin 31.1 pg (27.0-33.0); Mean Corpuscular Volume 94.4 fL (80.0-98.0); Mean Platelet Volume 8.9 fL (9.4-12.4); Platelet Count 290 X10*3/uL (160-400); Red Blood Count 4.66 X10*6/uL (4.60-5.80); Red Cell Distribution Width 13.4 % (11.0-16.0); White Blood Count 7.5 X10*3/uL (4.8-10.8)
[2021-09-29 09:32] LABS: Prothrombin Time 11.5 SEC (9.9-13.0)
[2021-09-29 09:40] LABS: Anion Gap 11 (12-20); Blood Urea Nitrogen 14 mg/dL (9-16); Calcium 9.7 mg/dL (8.4-10.2); Carbon Dioxide 29 mmol/L (22-29); Chloride 107 mmol/L (96-108); Estimated Glomerular Filt Rate 60; Glucose Random 111 mg/dL (60-115); Potassium 4.7 mmol/L (3.3-5.1); Sodium 142 mmol/L (135-145)
== END 2021-09-29 08:33 | disposition home or self-care (01) ==
LOC: HO.LAB 08:32
PROVIDERS: PCP Family Medicine; Visit Provider Internal Medicine Cardiovascular Disease
DX: R07.9 Chest pain, unspecified (principal); M50.30 Other cervical disc degeneration, unspecified cervical region; M47.812 Spondylosis without myelopathy or radiculopathy, cervical region; M47.816 Spondylosis without myelopathy or radiculopathy, lumbar region; G89.4 Chronic pain syndrome; G47.33 Obstructive sleep apnea (adult) (pediatric); J45.909 Unspecified asthma, uncomplicated; F32.A Depression, unspecified; E03.9 Hypothyroidism, unspecified; R73.03 Prediabetes
CPT/HCPCS: 36415; 80048; 85027; 85610; 99212

== ENCOUNTER 2021-10-21 07:45 | Outpatient (REF) | payer MEDICAID, SELFPAY ==
[2021-10-21 07:56] LABS: MANUAL DIFF FLAG NO
[2021-10-21 08:43] LABS: Basophils Percent Auto 0.4 % (0-2); Eosinophils Absolute Auto 0.3 X10*3/uL (0.0-0.4); Eosinophils Percent Auto 3.1 % (0-4); Hematocrit 45.7 % (42.0-52.0); Hemoglobin 14.9 g/dl (14.0-18.0); Imm Gran Abs Auto 0.04 X10*3/uL (0.00-0.03); Imm Gran Pct Auto 0.4 % (0.0-0.4); Lymphocytes Absolute Auto 4.4 X10*3/uL (1.2-4.9); Lymphocytes Percent Auto 49.4 % (20-40); Mean Corpuscular HGB Conc 32.6 g/dl (31.0-36.0); Mean Platelet Volume 9.1 fL (9.4-12.4); Monocytes Absolute Auto 0.6 X10*3/uL (0.1-1.2); Monocytes Percent Auto 7.2 % (2-11); Neutrophils Absolute Auto 3.5 x10*3/uL (2.0-8.3); Neutrophils Percent Auto 39.5 % (45-73); Platelet Count 301 X10*3/uL (160-400); Red Blood Count 4.81 X10*6/uL (4.60-5.80); Red Cell Distribution Width 13.2 % (11.0-16.0); White Blood Count 8.9 X10*3/uL (4.8-10.8)
[2021-10-21 09:19] LABS: Alanine Aminotransferase 40 U/L (0-40); Albumin Level 4.3 g/dL (3.5-5.0); Alkaline Phosphatase 109 U/L (39-117); Anion Gap 9 (12-20); Aspartate Amino Transferase 26 U/L (5-37); Bilirubin Total 0.4 mg/dL (0.0-1.0); Blood Urea Nitrogen 13 mg/dL (9-16); C Reactive Protein 0.13 mg/dL (< or = 0.50); Calcium 9.5 mg/dL (8.4-10.2); Carbon Dioxide 28 mmol/L (22-29); Chloride 110 mmol/L (96-108); Estimated Glomerular Filt Rate > 60; Glucose Random 108 mg/dL (60-115); Potassium 4.5 mmol/L (3.3-5.1); Sodium 142 mmol/L (135-145); Total Protein 7.1 g/dL (6.5-8.0)
[2021-10-21 09:42] LABS: Erythrocyte Sedimentation Rate 2 MM/HR (0-15)
== END 2021-10-21 07:46 | disposition home or self-care (01) ==
LOC: HO.LAB 07:45
PROVIDERS: PCP Family Medicine; Visit Provider Nurse Practitioner Family
DX: L40.50 Arthropathic psoriasis, unspecified (principal)
CPT/HCPCS: 36415; 80053; 85025; 85652; 86140

== ENCOUNTER 2021-10-21 12:55 | Outpatient (REF) | payer MEDICAID, SELFPAY ==
[2021-10-21 12:56] VITALS: BP 138/79; PULSE 88; RESP 19; TEMP 36.6; O2SAT 97; BMI 29.4
--- NOTE | 2021-10-21 13:28 | P.OP_ITS ---
Operative Note Operative Note Date of Service: 10/21/21 Narrative: Preop diagnosis: Lipoma of the scalp Postop diagnosis : the same Procedure: Excision of lipoma of the scalp at the occipital area under local anesthesia Surgeon: Musa John MD Commercial Construction Superintendent: SUMAN Fernandez student The patient is a 56-year-old male with a lipomatous mass on the occipital area. He wanted this excised. He understood the technique of excision under local anesthesia. Aware of the risks, benefits, and alternatives Was brought to the minor procedure room. He was placed prone position. The area of the lipomas prepped and draped. Lidocaine 1% was used for local anesthesia. I made incision on the skin overlying the lipoma using a blade 15. This was carried down through the full-thickness of skin and subcutaneous fat. We continued to dissect sharply with Metzenbaum scissors until I was able to visualize lipomatous tissue. I sharply dissected the lipomatous tissue off of the rest of the subcutaneous fat circumferentially until this was delivered and sent as specimen. This measured about 1.5 cm in diameter I irrigated copiously. I closed the incision with full-thickness nylon 3-0 interrupted sutures. Dressings were applied. The patient tolerated procedure well. There were no complication noted. Was given wound care instructions. He will be seen in the office in about 2 weeks for removal sutures.
== END 2021-10-21 12:56 | disposition home or self-care (01) ==
LOC: HO.MS 12:55
PROVIDERS: PCP Family Medicine; Visit Provider Surgery
PROC: (CPT 21012; principal; 2021-10-21 13:00)
DX: D17.0 Benign lipomatous neoplasm of skin and subcutaneous tissue of head, face and neck (principal)
CPT/HCPCS: 21012; 88304

== ENCOUNTER → 2021-10-27 07:53 | Outpatient (BNVA) | payer MEDICAID, SELFPAY | PROVIDERS: PCP Family Medicine; Visit Provider Nurse Practitioner Family | DX: L40.50 Arthropathic psoriasis, unspecified (principal); M47.816 Spondylosis without myelopathy or radiculopathy, lumbar region | CPT/HCPCS: 99212 ==

== ENCOUNTER → 2021-10-28 13:38 | Outpatient (BNVA) | payer MEDICAID, SELFPAY | PROVIDERS: PCP Family Medicine; Referring Provider Family Medicine; Visit Provider Nurse Practitioner Family | DX: R07.9 Chest pain, unspecified (principal); G89.4 Chronic pain syndrome; Z98.890 Other specified postprocedural states | CPT/HCPCS: 99212 ==

== ENCOUNTER → 2021-11-03 09:35 | Outpatient (BNVA) | payer MEDICAID, SELFPAY | PROVIDERS: PCP Family Medicine; Referring Provider Family Medicine; Visit Provider Surgery | DX: Z48.817 Encounter for surgical aftercare following surgery on the skin and subcutaneous tissue (principal); Z87.2 Personal history of diseases of the skin and subcutaneous tissue | CPT/HCPCS: 99212 ==

== ENCOUNTER 2021-12-01 16:01 | Outpatient (REF) | payer MEDICAID, SELFPAY ==
--- NOTE | ~2021-12-01 | US_ITS ---
EXAMINATION: US THYROID CLINICAL INFORMATION: Pain in throat. COMPARISON: None TECHNIQUE: Linear transducer grayscale and color Doppler examination with attention to the region of the thyroid. FINDINGS: SIZE: Measurements of the thyroid lobes and nodules are given in sagittal, anteroposterior and transverse dimensions respectively. Right Thyroid Lobe: 5.0 x 1.3 x 1.1 cm, volume 3.7 mL. Parenchyma: The gland echotexture is homogeneous. Thyroid vascularity is normal. Left Thyroid Lobe: 4.0 x 1.3 x 1.5 cm, volume 4.1 mL. Parenchyma: The gland echotexture is homogeneous. Thyroid vascularity is normal. Isthmus: 0.3 cm in maximum AP dimension. No focal thyroid nodule is seen. NODES: There is a normal-appearing left cervical lymph node. This is normal in size and demonstrate normal ultrasound morphology and flow. This measures 1.1 x 0.6 x 0.7 cm. US/US thyroid IMPRESSION: Unremarkable thyroid ultrasound. No nodule seen.
== END 2021-12-01 16:02 | disposition home or self-care (01) ==
LOC: HO.US 16:01
PROVIDERS: PCP Family Medicine; Visit Provider Family Medicine
DX: R07.0 Pain in throat (principal)
CPT/HCPCS: 76536

== ENCOUNTER 2021-12-24 10:28 | Day surgery (SDC) | payer MEDICAID, SELFPAY ==
--- NOTE | 2021-12-02 09:45 | P.CONAN_ITS ---
HPI - Anesthesia Eval Consult details Narrative: 56yo M for Right L4-L5 Transforaminal Epidural Steroid Injection Recent w/u for chest pain, including normal cath. Noncardiac etiology for chest pain per 10/28/21 cardiology f/u visit. s/p MBB 08/2021 with [facility] Active Problems Active Problems: All Active Problems (Updated 11/03/21 @ 09:51 by Musa John MD) Osteoarthritis of left hip (Acute) Dyspnea (Acute) Nonalcoholic steatohepatitis (CROSS) (Acute) Leg pain (Acute) Avascular necrosis of bone of left hip (Acute) Trochanteric bursitis of left hip (Acute) Trochanteric bursitis of right hip (Acute) Liver cyst (Acute) SOB (shortness of breath) (Acute) Back pain (Acute) Right sided numbness (Acute) Patellofemoral arthritis of right knee (Acute) DAYAN (obstructive sleep apnea) (Acute) Chest pain (Acute) Status post cardiac catheterization (Acute) Lipoma of scalp (Acute) Spondylosis of thoracic spine (Acute) Spondylosis of lumbar spine (Acute) Psoriasis (Acute) Psoriatic arthritis (Acute) Chronic pain syndrome (Acute) Spondylosis of lumbar region without myelopathy or radiculopathy (Acute) Spondylosis, cervical (Acute) Degeneration, intervertebral disc, cervical (Acute) Past Medical History Medical History Asthma Avascular necrosis Chronic pain Chronic pain syndrome Degeneration, intervertebral disc, cervical Depression Dysphagia Fatty liver HTN (hypertension) Hx of chest pain Hypothyroid Kidney cysts Lipoma of scalp Mood disorder DAYNA on CPAP Pre-diabetes Psoriasis Psoriatic arthritis Schatzki's ring 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 Spondylosis, cervical Family History Family History Father Cirrhosis Alcoholism Mother Diabetes HTN (hypertension) Parkinson disease Brother Cirrhosis Alcoholism Family history of problems with anesthesia: No Surgical History Surgical History (Updated 11/24/21 @ 15:02 by Alyx Galindo, GERSON) H/O neck surgery History of colonoscopy Hx of cardiac cath Hx of endoscopy Hx of hand surgery Status post cardiac catheterization Status post excision of lipoma (~10/21/21) History of Problems with Anesthesia: No Social History Social History Household Members: Spouse and Children Are you a primary pediatric acute care unit nurse to a significant other at home: No Do you presently have visiting nurse or other home services: No Alcohol intake: never Patient Tobacco Use Status: Former Tobacco user Second Hand Smoke Exposure: No Current occupational status: disabled Current occupation: rt handed Meds Allergies Allergy/AdvReac Type Severity Reaction Status Date / Time No Known Allergies Allergy Verified 11/24/21 15:14 [No Known Allergies*] Home Medications Medication Instructions Recorded Confirmed Last Taken Type albuterol sulfate 90 mcg/actuation 2 puff INHALATION Q6H PRN 08/10/20 11/24/21 Unknown History aerosol inhaler (ProAir HFA) amitriptyline 25 mg tablet 25 mg PO BEDTIME 08/10/20 11/24/21 Unknown History escitalopram oxalate 20 mg tablet 20 mg PO DAILY 08/10/20 11/24/21 Unknown History fluticasone propionate 50 1 spray INTRANASAL DAILY 08/10/20 11/24/21 Unknown History mcg/actuation nasal spray,suspension levothyroxine 50 mcg capsule 50 mcg PO DAILY 11/11/20 11/24/21 05/06/21 History amlodipine 2.5 mg tablet 2.5 mg PO DAILY 03/29/21 11/24/21 Unknown History gabapentin 300 mg capsule 300 mg PO TID 03/29/21 11/24/21 Unknown History docusate sodium 100 mg capsule 1 cap PO BID 04/29/21 11/24/21 Unknown History atorvastatin 40 mg tablet 40 mg PO DAILY 08/30/21 11/24/21 Unknown History loratadine 10 mg tablet 10 mg PO DAILY 08/30/21 11/24/21 Unknown History baclofen 10 mg tablet 10 mg PO BEDTIME 10/27/21 11/24/21 Unknown History buspirone 15 mg tablet 15 mg PO BID 10/27/21 11/24/21 Unknown History Exam Exam Date and Time: December 02, 2021 0945 Pertinent Lab Results Pertinent Lab Results: Laboratory Tests 10/21/21 10/21/21 07:54 07:54 WBC 8.9 Hgb 14.9 Hct 45.7 Plt Count 301 Sodium 142 Potassium 4.5 Chloride 110 H Carbon Dioxide 28 BUN 13 Creatinine 1.16 Narrative Narrative: EKG 2020 Vent. Rate : 068 BPM ? ? Atrial Rate : 068 BPM ?? P-R Int : 160 ms? QRS Dur : 084 ms ? ? QT Int : 352 ms ? ? ? P-R-T Axes : 041 017 022 degrees ?? QTc Int : 374 ms ? ? Normal sinus rhythm Normal ECG When compared with ECG of 10-MAR-2020 17:07, No significant changes seen ECHO 2019 Conclusions: - The left ventricular systolic function is normal.? The visually estimated ejection fraction is between 65-70%. ? - No obvious valvular pathology seen on this study.? ? ?stress echocardiogram done on 09/17/2020 showing no EKG or echo evidence of ischemia Assessment and Plan Assessment Anesthesia Assessment: Chart Reviewed Final Anesthetic Review Family History of Problems with Anesthesia: No History of Problems with Anesthesia: No
[2021-12-21 15:24] VITALS: BMI 29.5
--- NOTE | ~2021-12-24 | FL_ITS ---
EXAMINATION: XR FLUOROSCOPY WITH IMAGES CLINICAL INFORMATION: Steroid injection. COMPARISON: None. TECHNIQUE: Fluoroscopy performed by Dr. Winston Boykin Fluoroscopy time: 0.2 minutes DAP: 2.28 mGycm2 Images: 1 FINDINGS: A single AP view of the lumbar spine reveals transforaminal epidural injection Y placement of needle along the right inferior pedicle. FL/FL guidance in OR IMPRESSION: Fluoroscopy provided to referring physician for pain management.
[2021-12-24 11:17] VITALS: BP 129/78; PULSE 72; RESP 16; TEMP 36.4; O2SAT 97
[2021-12-24] MEDS: Lactated Ringers 1,000 ML 100 ML IVCONT (11:38)
--- NOTE | 2021-12-24 14:40 | P.HPSUR_ITS ---
Pre-Procedural Eval Section A Date of Service: 12/24/21 The patient is an INPATIENT: No Changes since office visit: Yes Patient answered all questions The History & Physical has been completed within 30 days and I have reviewed it.: No Section B Chief Complaint: intervertebral disc degeneration,lumbar Details of Present Illness: The same Relevant Family History (Specify if Yes): No Relevant Social History: None Present Medications: see Short Stay Collaborative assessment Medical History: No relevant PMH History of Previous Operations: No relevant previous surgery Allergies: Allergies Allergy/AdvReac Type Severity Reaction Status Date / Time No Known Allergies Allergy Verified 11/24/21 15:14 [No Known Allergies*] Review of Systems Sugical H&P ROS: Negative: Constitution, Cardiovascular, Respiratory, Neurological, Psychiatric, Hem-Onc, Allergic/Immunologic, Gastrointestinal, Genitourinary, Musculoskeletal, Integumentary, Endocrine and Eyes/Ears/ Nose/Throat Exam Surgical H&P Exam: Normal: HEENT, Normal: Heart, Normal: Lungs, Normal: Extremities, Normal: Abdomen, Normal: Skin and Normal: Neurological Plan Diagnosis/Plan: Unchanged I have reviewed the history and physical and performed a pertinent physical examination on my patient. No changes have occurred unless specified.
[2021-12-24 14:45] VITALS: BP 139/95; PULSE 80; RESP 16; TEMP 36.7; O2SAT 98
--- NOTE | 2021-12-24 14:47 | W.PM.OPN ---
Operative Note Operative Note Date of Service: 12/24/21 Narrative: ? Transforaminal L4-L5 right epidural steroid injections. Informed consent was explained to the patient. She was taken inside of the operating room and was positioned prone on operating table. ASA monitors were applied and the patient was sedated.. ? Time-out was performed. Patient participated in time-out procedure. ? Her mid back was prepped and draped with ChloraPrep and sterile Utility towels. ? C-arm was brought over the operating field and picture of patient's lumbar spine was demonstrated on the screen. ? L4 vertebra was chosen as a target of the injections. The square image of the L4 vertebra was demonstrated on the screen. tilting machine ipsilateral to the right the most prominent image of the right L4 pedicle was demonstrated on the screen. 3 mm below the lowest point of the pedicle projection to the skin the skin wheal was raised using lidocaine 1%. after that 22g 5 inch needle was inserted through the skin and advanced toward the right foramina on the AP and lateral oblique intermittent views. When the tip of the needle was passing by the silhouette of the spinal column on AP view the injection of the contrast was performed demonstrating anterior epidural spread of the contrast. No intrathecal and no intravascular uptake of the contrast was noted. After that injection of 2 mls on lidocaine 1% PF mixed with 40 mg of kenalog was performed into the needle. after the the injection was completed the needle was flushed with contrast and removed. Upon completion of the injection the needle was removed sterile bandaids were applied to the patient's back. He tolerated the procedure well.
[2021-12-24 15:00] VITALS: BP 104/72; PULSE 65; RESP 20; O2SAT 97
[2021-12-24 15:15] VITALS: BP 104/73; PULSE 64; RESP 20; O2SAT 97
[2021-12-24 15:30] VITALS: BP 115/72; PULSE 64; RESP 20; O2SAT 97
[2021-12-24 15:45] VITALS: BP 125/82; PULSE 64; RESP 20; O2SAT 97
== END 2021-12-24 16:09 | disposition home or self-care (01) ==
PROVIDERS: PCP Family Medicine; Visit Provider Anesthesiology
PROC: (CPT 64483; principal; 2021-12-24 12:40)
DX: M51.36 Other intervertebral disc degeneration, lumbar region (principal); M47.816 Spondylosis without myelopathy or radiculopathy, lumbar region; G89.4 Chronic pain syndrome; M87.9 Osteonecrosis, unspecified; J45.909 Unspecified asthma, uncomplicated; I10 Essential (primary) hypertension; E03.9 Hypothyroidism, unspecified; G47.33 Obstructive sleep apnea (adult) (pediatric); R73.03 Prediabetes; L40.50 Arthropathic psoriasis, unspecified; Z79.51 Long term (current) use of inhaled steroids; Z79.899 Other long term (current) drug therapy; Z87.891 Personal history of nicotine dependence
CPT/HCPCS: 64483; J2250; J3010; J3300; Q9967

== ENCOUNTER 2022-01-11 07:30 | Outpatient (REF) | payer MEDICAID, SELFPAY ==
[2022-01-11 07:50] LABS: MANUAL DIFF FLAG NO
[2022-01-11 08:27] LABS: Basophils Percent Auto 0.4 % (0-2); Eosinophils Absolute Auto 0.1 X10*3/uL (0.0-0.4); Eosinophils Percent Auto 1.7 % (0-4); Hemoglobin 14.1 g/dl (14.0-18.0); Imm Gran Abs Auto 0.03 X10*3/uL (0.00-0.03); Imm Gran Pct Auto 0.4 % (0.0-0.4); Lymphocytes Absolute Auto 3.8 X10*3/uL (1.2-4.9); Lymphocytes Percent Auto 51.5 % (20-40); Mean Corpuscular HGB Conc 32.8 g/dl (31.0-36.0); Mean Corpuscular Hemoglobin 30.7 pg (27.0-33.0); Mean Corpuscular Volume 93.5 fL (80.0-98.0); Mean Platelet Volume 8.7 fL (9.4-12.4); Monocytes Absolute Auto 0.6 X10*3/uL (0.1-1.2); Monocytes Percent Auto 7.6 % (2-11); Neutrophils Absolute Auto 2.9 x10*3/uL (2.0-8.3); Neutrophils Percent Auto 38.4 % (45-73); Platelet Count 317 X10*3/uL (160-400); Red Cell Distribution Width 13.2 % (11.0-16.0); White Blood Count 7.5 X10*3/uL (4.8-10.8)
[2022-01-11 08:55] LABS: Alanine Aminotransferase 23 U/L (0-40); Albumin Level 4.3 g/dL (3.5-5.0); Alkaline Phosphatase 83 U/L (39-117); Anion Gap 8 (12-20); Aspartate Amino Transferase 21 U/L (5-37); Bilirubin Total 0.9 mg/dL (0.0-1.0); Blood Urea Nitrogen 19 mg/dL (9-16); C Reactive Protein 0.29 mg/dL (< or = 0.50); Calcium 9.6 mg/dL (8.4-10.2); Carbon Dioxide 28 mmol/L (22-29); Chloride 108 mmol/L (96-108); Estimated Glomerular Filt Rate 55; Glucose Random 108 mg/dL (60-115); Potassium 4.5 mmol/L (3.3-5.1); Sodium 139 mmol/L (135-145)
[2022-01-11 09:11] LABS: Erythrocyte Sedimentation Rate 3 MM/HR (0-15)
== END 2022-01-11 07:31 | disposition home or self-care (01) ==
LOC: HO.LAB 07:30
PROVIDERS: PCP Family Medicine; Visit Provider Nurse Practitioner Family
DX: L40.50 Arthropathic psoriasis, unspecified (principal)
CPT/HCPCS: 36415; 80053; 85025; 85652; 86140

== ENCOUNTER → 2022-01-18 08:41 | Outpatient (BNVA) | payer MEDICAID, SELFPAY | PROVIDERS: PCP Family Medicine; Visit Provider Nurse Practitioner Family | DX: L40.50 Arthropathic psoriasis, unspecified (principal); M47.816 Spondylosis without myelopathy or radiculopathy, lumbar region | CPT/HCPCS: 99212 ==

== ENCOUNTER → 2022-01-26 10:45 | Outpatient (BNVA) | payer MEDICAID, SELFPAY | PROVIDERS: PCP Family Medicine; Visit Provider Anesthesiology | DX: Z13.89 Encounter for screening for other disorder (principal) | CPT/HCPCS: 99212 ==

== ENCOUNTER → 2022-02-03 10:13 | Outpatient (BNVA) | payer MEDICAID, SELFPAY | PROVIDERS: PCP Family Medicine; Visit Provider Internal Medicine Pulmonary Disease | DX: G47.33 Obstructive sleep apnea (adult) (pediatric) (principal); R06.01 Orthopnea | CPT/HCPCS: 99212 ==

== ENCOUNTER → 2022-03-25 09:33 | Outpatient (BNVA) | payer MEDICAID, SELFPAY | PROVIDERS: PCP Family Medicine; Visit Provider Internal Medicine Gastroenterology | DX: N28.1 Cyst of kidney, acquired (principal); K76.89 Other specified diseases of liver; K21.9 Gastro-esophageal reflux disease without esophagitis; Z79.899 Other long term (current) drug therapy | CPT/HCPCS: 99212 ==

== ENCOUNTER 2022-03-31 10:08 | Day surgery (SDC) | payer MEDICAID, SELFPAY ==
[2022-03-23 16:10] VITALS: BMI 30.3
--- NOTE | 2022-03-30 10:24 | HO.ANESPROP2 ---
HPI - Anesthesia Eval Consult details Narrative: 56yo M for Right L4-L5 transforaminal Epidural Steroid Injection s/p same 12/2021 with [facility] Active Problems Active Problems: All Active Problems (Updated 03/25/22 @ 09:50 by Kolby Nelson MD) Liver cyst (Acute) Orthopnea (Acute) Osteoarthritis of left hip (Acute) Dyspnea (Acute) Nonalcoholic steatohepatitis (CROSS) (Acute) Leg pain (Acute) Avascular necrosis of bone of left hip (Acute) Trochanteric bursitis of left hip (Acute) Trochanteric bursitis of right hip (Acute) Liver cyst (Acute) SOB (shortness of breath) (Acute) Back pain (Acute) Right sided numbness (Acute) Patellofemoral arthritis of right knee (Acute) DAYNA (obstructive sleep apnea) (Acute) Chest pain (Acute) Status post cardiac catheterization (Acute) Lipoma of scalp (Acute) Spondylosis of thoracic spine (Acute) Spondylosis of lumbar spine (Acute) Psoriasis (Acute) Psoriatic arthritis (Acute) Chronic pain syndrome (Acute) Spondylosis of lumbar region without myelopathy or radiculopathy (Acute) Spondylosis, cervical (Acute) Degeneration, intervertebral disc, cervical (Acute) Past Medical History Medical History Asthma Avascular necrosis Chronic pain Chronic pain syndrome Degeneration, intervertebral disc, cervical Depression Dysphagia Fatty liver HTN (hypertension) Hx of chest pain Hypothyroid Kidney cysts Lipoma of scalp Mood disorder DAYNA on CPAP Pre-diabetes Psoriasis Psoriatic arthritis Schatzki's ring 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 Spondylosis, cervical Family History Family History Father Cirrhosis Alcoholism Mother Diabetes HTN (hypertension) Parkinson disease Brother Cirrhosis Alcoholism Family history of problems with anesthesia: No Surgical History Surgical History H/O neck surgery History of colonoscopy Hx of cardiac cath Hx of endoscopy Hx of hand surgery Status post cardiac catheterization Status post excision of lipoma (~10/21/21) History of Problems with Anesthesia: No Social History Social History Household Members: Spouse and Children Are you a primary mall plant caretaker to a significant other at home: No Do you presently have visiting nurse or other home services: No Alcohol intake: never Patient Tobacco Use Status: Former Tobacco user Second Hand Smoke Exposure: No Current occupational status: disabled Current occupation: rt handed Meds Allergies Allergy/AdvReac Type Severity Reaction Status Date / Time No Known Allergies Allergy Verified 03/25/22 09:43 [No Known Allergies*] Home Medications Medication Instructions Recorded Confirmed Last Taken Type albuterol sulfate 90 mcg/actuation 2 puff inhalation Q6H PRN Wheezing 08/10/20 03/23/22 Unknown History aerosol inhaler (ProAir HFA) amitriptyline 25 mg tablet 25 mg PO BEDTIME 08/10/20 03/23/22 Unknown History escitalopram oxalate 20 mg tablet 20 mg PO DAILY 08/10/20 03/23/22 Unknown History fluticasone propionate 50 1 spray intranasal DAILY 08/10/20 03/23/22 Unknown History mcg/actuation nasal spray,suspension gabapentin 300 mg capsule 300 mg PO TID 03/29/21 03/23/22 Unknown History docusate sodium 100 mg capsule 1 cap PO BID 04/29/21 03/23/22 Unknown History atorvastatin 40 mg tablet 40 mg PO DAILY 08/30/21 03/23/22 Unknown History baclofen 10 mg tablet 10 mg PO BEDTIME 10/27/21 03/23/22 Unknown History buspirone 15 mg tablet 15 mg PO BID 10/27/21 03/23/22 Unknown History amlodipine 5 mg tablet 1 tab PO DAILY 03/23/22 03/23/22 Unknown History levothyroxine 75 mcg tablet 1 tab PO DAILY 03/23/22 03/23/22 Unknown History Exam Exam Date and Time: March 30, 2022 1024 Height,Weight and Vital Signs: Height 5 ft 2 in Weight 75.296 kg Pertinent Lab Results Pertinent Lab Results: Laboratory Tests 01/11/22 01/11/22 07:49 07:49 WBC 7.5 Hgb 14.1 Hct 43.0 Plt Count 317 Sodium 139 Potassium 4.5 Chloride 108 Carbon Dioxide 28 BUN 19 H Creatinine 1.33 Narrative Narrative: EKG 2020 Vent. Rate : 068 BPM ? ? Atrial Rate : 068 BPM ?? P-R Int : 160 ms? QRS Dur : 084 ms ? ? QT Int : 352 ms ? ? ? P-R-T Axes : 041 017 022 degrees ?? QTc Int : 374 ms ? ? Normal sinus rhythm Normal ECG When compared with ECG of 10-MAR-2020 17:07, No significant changes seen ECHO 2020 Conclusions: - The left ventricular systolic function is normal.? The visually estimated ejection fraction is between 65-70%. ? - No obvious valvular pathology seen on this study.? ? ?stress echocardiogram done on 09/17/2020 showing no EKG or echo evidence of ischemia Assessment and Plan Assessment Anesthesia Assessment: Chart Reviewed Final Anesthetic Review Family History of Problems with Anesthesia: No History of Problems with Anesthesia: No
--- NOTE | ~2022-03-31 | FL_ITS ---
EXAMINATION: XR FLUOROSCOPY WITH IMAGES CLINICAL INFORMATION: Right L4-L5 transforaminal injection. COMPARISON: 12/24/2021 and 08/27/2021 TECHNIQUE: FLUOROSCOPY PERFORMED BY: Dr. Winston Boykin. FLUOROSCOPY TIME: 0.5 minutes DAP: 5.44 mGy-cm2 FLUOROSCOPIC IMAGES: 3 FINDINGS: 3 images demonstrate needle and contrast about the inferior aspect of the right L4 pedicle for L4-L5 transforaminal injection. FL/FL guidance in OR IMPRESSION: Fluoroscopy provided for pain management procedure.
[2022-03-31 11:34] VITALS: BMI 29.5
[2022-03-31 11:46] VITALS: BP 115/69; PULSE 68; RESP 16; TEMP 35.7; O2SAT 96
[2022-03-31] MEDS: Lactated Ringers 1,000 ML 100 ML IVCONT (12:02)
--- NOTE | 2022-03-31 12:15 | P.HPSUR_ITS ---
Pre-Procedural Eval Section A Date of Service: 03/31/22 The patient is an INPATIENT: No Changes since office visit: Yes Patient answered all questions The History & Physical has been completed within 30 days and I have reviewed it.: No Section B Chief Complaint: intervertebral disc degeneration, lumbar region Details of Present Illness: intervertebral disc degeneration lumbar region, lumbar radiculopathy. Relevant Family History (Specify if Yes): No Relevant Social History: None Present Medications: see Short Stay Collaborative assessment Medical History: No relevant PMH History of Previous Operations: No relevant previous surgery Allergies: Allergies Allergy/AdvReac Type Severity Reaction Status Date / Time No Known Allergies Allergy Verified 03/25/22 09:43 [No Known Allergies*] Review of Systems Sugical H&P ROS: Negative: Constitution, Cardiovascular, Respiratory, Neurological, Psychiatric, Hem-Onc, Allergic/Immunologic, Gastrointestinal, G enitourinary, Musculoskeletal, Integumentary, Endocrine and Eyes/Ears/Nose/Throat Exam Surgical H&P Exam: Normal: HEENT, Normal: Heart, Normal: Lungs, Normal: Extremities, Normal: Abdomen, Normal: Skin and Normal: Neurological Plan Diagnosis/Plan: Unchanged I have reviewed the history and physical and performed a pertinent physical examination on my patient. No changes have occurred unless specified.
--- NOTE | 2022-03-31 12:19 | W.PM.OPN ---
Operative Note Operative Note Date of Service: 03/31/22 Narrative: Transforaminal epidural steroid injection L4-5 on the right.? After obtaining informed consent and thoroughly explaining the patient risks and benefits of the procedure he was taken to the operating room and was positioned prone on operating table with a pillow under her belly.? [employer] monitors were applied and patient was minimally to moderately sedated.? His lower back was prepped with ChloraPrep and draped with sterile utility towels. Time-out was performed delineating correct site and side of the procedure name and date of of the patient. C-arm was brought over the operating field and sq picture of L4 vertebra was demonstrated on the screen.? Tilting machine ipsilateral to the right the most prominent picture of the right L4 pedicle was obtained screen.? 3 mm below the lowest point of the projection of the pedicle to the skin injection of the local anesthetic lidocaine 1% was performed.? After that 22 gauge? 5 in needle was inserted through the skin and advanced to the foramina under anterior posterior and oblique views.? When patient felt slight discomfort going down the right leg the needle slightly withdrawn injection of the contrast was performed demonstrated Sarah- Neural and epidural spread of the contrast. ? 3 cc of local anesthesia preservative-free lidocaine 1 % mixed with Kenalog 40 mg was performed into the needle. the needle was then withdrawn from L4 foramina.? The patient tolerated procedure well he was taken? to recovery room where he recovered uneventfully.
--- NOTE | 2022-03-31 12:24 | HO.ANESPROP2 ---
[facility] Active Problems Active Problems: All Active Problems (Updated 03/25/22 @ 09:50 by Kolby Nelson MD) Liver cyst (Acute) Orthopnea (Acute) Osteoarthritis of left hip (Acute) Dyspnea (Acute) Nonalcoholic steatohepatitis (CROSS) (Acute) Leg pain (Acute) Avascular necrosis of bone of left hip (Acute) Trochanteric bursitis of left hip (Acute) Trochanteric bursitis of right hip (Acute) Liver cyst (Acute) SOB (shortness of breath) (Acute) Back pain (Acute) Right sided numbness (Acute) Patellofemoral arthritis of right knee (Acute) DAYNA (obstructive sleep apnea) (Acute) Chest pain (Acute) Status post cardiac catheterization (Acute) Lipoma of scalp (Acute) Spondylosis of thoracic spine (Acute) Spondylosis of lumbar spine (Acute) Psoriasis (Acute) Psoriatic arthritis (Acute) Chronic pain syndrome (Acute) Spondylosis of lumbar region without myelopathy or radiculopathy (Acute) Spondylosis, cervical (Acute) Degeneration, intervertebral disc, cervical (Acute) Past Medical History Medical History Asthma Avascular necrosis Chronic pain Chronic pain syndrome Degeneration, intervertebral disc, cervical Depression Dysphagia Fatty liver HTN (hypertension) Hx of chest pain Hypothyroid Kidney cysts Lipoma of scalp Mood disorder DAYNA on CPAP Pre-diabetes Psoriasis Psoriatic arthritis Schatzki's ring 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 Spondylosis, cervical Family History Family History Father Cirrhosis Alcoholism Mother Diabetes HTN (hypertension) Parkinson disease Brother Cirrhosis Alcoholism Family history of problems with anesthesia: No Surgical History Surgical History H/O neck surgery History of colonoscopy Hx of cardiac cath Hx of endoscopy Hx of hand surgery Status post excision of lipoma (~10/21/21) History of Problems with Anesthesia: No Social History Social History Household Members: Spouse and Children Are you a primary child care counselor to a significant other at home: No Do you presently have visiting nurse or other home services: No Alcohol intake: never Patient Tobacco Use Status: Former Tobacco user Tobacco use type: Cigarette Smoked in Last 30 Days: No Second Hand Smoke Exposure: No Use of substances other than those prescribed or required for medical reasons: No Are you DNR?: No Advance Directives: No Advance Directives Information Provided: Yes Recently lost weight without trying: No Nutrition Risks: No Nutritional Risk Current occupational status: disabled Current occupation: rt handed Meds Allergies Allergy/AdvReac Type Severity Reaction Status Date / Time No Known Allergies Allergy Verified 03/25/22 09:43 [No Known Allergies*] Active Medications: Current Medications Albuterol Sulfate (Albuterol Sulfate (0.083%) 2.5 Mg/3 Ml Vial.Neb) 2.5 mg INHALE ONCE PRN PRN Reason: Shortness of Breath/Wheezing Fentanyl (Fentanyl Citrate/Pf 100 Mcg/2 Ml Vial) 25 mcg IVPUSH Q5M PRN; Protocol PRN Reason: Pain, Moderate (Pain Scale 4-6 Lactated Ringer's (Lr) 1,000 mls @ 100 mls/hr IVCONT .Q10H AUREA Last Admin: 03/31/22 12:02 Dose: 100 mls/hr Ondansetron HCl (Ondansetron Hcl 4 Mg/2 Ml Vial) 4 mg IVPUSH ONCE PRN PRN Reason: Nausea and Vomiting Oxycodone HCl (Oxycodone Hcl Immed Release 5 Mg Tablet) 5 mg PO ONCE PRN PRN Reason: Pain, Severe (Pain Scale 7-10) Home Medications Medication Instructions Recorded Confirmed Last Taken Type albuterol sulfate 90 mcg/actuation 2 puff inhalation Q6H PRN Wheezing 08/10/20 03/23/22 Unknown History aerosol inhaler (ProAir HFA) amitriptyline 25 mg tablet 25 mg PO BEDTIME 08/10/20 03/23/22 Unknown History escitalopram oxalate 20 mg tablet 20 mg PO DAILY 08/10/20 03/23/22 03/31/22 History fluticasone propionate 50 1 spray intranasal DAILY 08/10/20 03/23/22 Unknown History mcg/actuation nasal spray,suspension gabapentin 300 mg capsule 300 mg PO TID 03/29/21 03/23/22 03/31/22 History docusate sodium 100 mg capsule 1 cap PO BID 04/29/21 03/23/22 Unknown History atorvastatin 40 mg tablet 40 mg PO DAILY 08/30/21 03/23/22 Unknown History baclofen 10 mg tablet 10 mg PO BEDTIME 10/27/21 03/23/22 Unknown History buspirone 15 mg tablet 15 mg PO BID 10/27/21 03/23/22 03/31/22 History amlodipine 5 mg tablet 1 tab PO DAILY 03/23/22 03/23/22 03/31/22 History levothyroxine 75 mcg tablet 1 tab PO DAILY 03/23/22 03/23/22 03/31/22 History Exam Exam Date and Time: March 31, 2022 1224 Height,Weight and Vital Signs: Height 5 ft 3 in Weight 75.75 kg Last Vital Signs Temp 96.3 F L 03/31/22 11:46 Pulse 68 03/31/22 11:46 Resp 16 03/31/22 11:46 BP 115/69 03/31/22 11:46 Pulse Ox 96 03/31/22 11:46 O2 Del Method 03/31/22 11:46 Airway Mallampati Class: II TM Dist: >3cm Neck ROM: Full Loose/Missing/Broken Teeth: No Heart: rrr Lungs: clear Assessment and Plan Final Anesthetic Review Family History of Problems with Anesthesia: No History of Problems with Anesthesia: No Patient Risk: High Procedure Risk: Low Anesthetic Plan Anesthetic Plan: MAC:
[2022-03-31 13:03] VITALS: BP 114/86; PULSE 67; RESP 10; TEMP 36.2; O2SAT 93
[2022-03-31 13:18] VITALS: BP 121/77; PULSE 63; RESP 12; O2SAT 96
[2022-03-31 13:33] VITALS: BP 125/78; PULSE 65; RESP 16; O2SAT 94
[2022-03-31 13:48] VITALS: BP 115/86; PULSE 65; RESP 16; TEMP 36.2; O2SAT 94
== END 2022-03-31 14:05 | disposition home or self-care (01) ==
PROVIDERS: PCP Family Medicine; Visit Provider Anesthesiology
PROC: 3E0R33Z Introduction of Anti-inflammatory into Spinal Canal, Percutaneous Approach (ICD-10-PCS; CPT 64483; principal; 2022-03-31 12:30)
DX: M51.36 Other intervertebral disc degeneration, lumbar region (principal); M47.816 Spondylosis without myelopathy or radiculopathy, lumbar region; G89.4 Chronic pain syndrome; M54.50 Low back pain, unspecified; M87.9 Osteonecrosis, unspecified; L40.50 Arthropathic psoriasis, unspecified; I10 Essential (primary) hypertension; J45.909 Unspecified asthma, uncomplicated; R73.03 Prediabetes; F32.A Depression, unspecified; G47.33 Obstructive sleep apnea (adult) (pediatric); Z99.89 Dependence on other enabling machines and devices; Z98.890 Other specified postprocedural states; Z87.891 Personal history of nicotine dependence
CPT/HCPCS: 64483; J2250; J3010; J3300

== ENCOUNTER 2022-04-07 08:53 | Outpatient (REF) | payer MEDICAID, SELFPAY ==
[2022-04-07 09:23] LABS: MANUAL DIFF FLAG NO
[2022-04-07 09:58] LABS: Basophils Percent Auto 0.4 % (0-2); Eosinophils Absolute Auto 0.1 X10*3/uL (0.0-0.4); Eosinophils Percent Auto 0.9 % (0-4); Hematocrit 44.5 % (42.0-52.0); Imm Gran Abs Auto 0.04 X10*3/uL (0.00-0.03); Imm Gran Pct Auto 0.4 % (0.0-0.4); Mean Corpuscular HGB Conc 33.7 g/dl (31.0-36.0); Mean Corpuscular Hemoglobin 31.3 pg (27.0-33.0); Mean Corpuscular Volume 92.9 fL (80.0-98.0); Mean Platelet Volume 8.6 fL (9.4-12.4); Monocytes Absolute Auto 0.7 X10*3/uL (0.1-1.2); Monocytes Percent Auto 7.1 % (2-11); Neutrophils Absolute Auto 5.2 x10*3/uL (2.0-8.3); Neutrophils Percent Auto 51.2 % (45-73); Platelet Count 334 X10*3/uL (160-400); Red Blood Count 4.79 X10*6/uL (4.60-5.80); Red Cell Distribution Width 13.4 % (11.0-16.0); White Blood Count 10.1 X10*3/uL (4.8-10.8)
[2022-04-07 10:44] LABS: Alanine Aminotransferase 32 U/L (0-40); Albumin Level 4.7 g/dL (3.5-5.0); Alkaline Phosphatase 100 U/L (39-117); Anion Gap 12 (12-20); Aspartate Amino Transferase 21 U/L (5-37); Bilirubin Total 0.8 mg/dL (0.0-1.0); Blood Urea Nitrogen 21 mg/dL (9-16); C Reactive Protein 0.18 mg/dL (< or = 0.50); Calcium 9.9 mg/dL (8.4-10.2); Carbon Dioxide 26 mmol/L (22-29); Chloride 106 mmol/L (96-108); Estimated Glomerular Filt Rate 48; Glucose Random 97 mg/dL (60-115); Potassium 5.3 mmol/L (3.3-5.1); Sodium 139 mmol/L (135-145); Total Protein 7.6 g/dL (6.5-8.0)
[2022-04-07 10:50] LABS: Erythrocyte Sedimentation Rate 3 MM/HR (0-15)
== END 2022-04-07 08:54 | disposition home or self-care (01) ==
LOC: HO.LAB 08:53
PROVIDERS: PCP Family Medicine; Visit Provider Nurse Practitioner Family
DX: L40.50 Arthropathic psoriasis, unspecified (principal)
CPT/HCPCS: 36415; 80053; 85025; 85652; 86140

== ENCOUNTER 2022-04-08 13:07 | Outpatient (REF) | payer MEDICAID, SELFPAY ==
[2022-04-08 14:31] LABS: Anion Gap 12 (12-20); Blood Urea Nitrogen 21 mg/dL (9-16); Calcium 9.3 mg/dL (8.4-10.2); Carbon Dioxide 26 mmol/L (22-29); Chloride 106 mmol/L (96-108); Estimated Glomerular Filt Rate 55; Glucose Random 87 mg/dL (60-115); Potassium 4.7 mmol/L (3.3-5.1); Sodium 139 mmol/L (135-145)
== END 2022-04-08 13:08 | disposition home or self-care (01) ==
LOC: HO.LAB 13:07
PROVIDERS: PCP Family Medicine; Visit Provider Nurse Practitioner Family
DX: E87.5 Hyperkalemia (principal); R79.89 Other specified abnormal findings of blood chemistry
CPT/HCPCS: 36415; 80048

== ENCOUNTER 2022-04-14 14:43 | Outpatient (REF) | payer MEDICAID, SELFPAY ==
--- NOTE | ~2022-04-14 | MR_ITS ---
EXAMINATION: MR ABDOMEN WITHOUT AND WITH CONTRAST CLINICAL INFORMATION: Kidney cysts COMPARISON: MR abdomen 04/09/2021 TECHNIQUE: MRI of the abdomen before and after the IV administration of 7 mL of Gadavist was obtained using routine sequences. FINDINGS: LUNG BASES: The visualized lung bases are unremarkable. KIDNEYS AND URETERS: A 1.6 cm homogeneously intrinsically T1 hyperintense Bosniak 2, left renal cyst on the previously 1.2 cm. Multiple Bosniak 1 benign appearing peripelvic renal cysts, no follow-up imaging recommended. GALLBLADDER: Unremarkable. LIVER AND BILIARY TREE: Loss of signal on opposed phase imaging compatible with hepatic steatosis. Scattered T2 hyperintense benign-appearing hepatic cysts, no imaging follow-up recommended. No intra or extrahepatic biliary duct dilatation. PANCREAS: Unremarkable SPLEEN: Unremarkable ADRENAL GLANDS: Unremarkable GASTROINTESTINAL TRACT: Colonic diverticulosis without evidence of diverticulitis. LYMPH NODES: No lymphadenopathy. VASCULAR: Unremarkable ABDOMINAL WALL: Unremarkable. OSSEOUS STRUCTURES: Unremarkable. MR/MR abdomen wo/w con IMPRESSION: Increase in size of a 1.6 cm Bosniak 2 left renal proteinaceous/hemorrhagic cyst. No follow-up imaging recommended. Hepatic steatosis.
== END 2022-04-14 14:44 | disposition home or self-care (01) ==
LOC: HO.MRI 14:43
PROVIDERS: Visit Provider Internal Medicine Gastroenterology
DX: N28.1 Cyst of kidney, acquired (principal); K76.89 Other specified diseases of liver
CPT/HCPCS: 74183; A9585

== ENCOUNTER → 2022-04-19 10:12 | Outpatient (BNVA) | payer MEDICAID, SELFPAY | PROVIDERS: PCP Family Medicine; Visit Provider Nurse Practitioner Family | DX: L40.50 Arthropathic psoriasis, unspecified (principal); L40.9 Psoriasis, unspecified; M47.816 Spondylosis without myelopathy or radiculopathy, lumbar region | CPT/HCPCS: 99212 ==

== ENCOUNTER → 2022-04-26 09:37 | Outpatient (BNVA) | payer MEDICAID, SELFPAY | PROVIDERS: PCP Family Medicine; Visit Provider Internal Medicine Pulmonary Disease | DX: G47.33 Obstructive sleep apnea (adult) (pediatric) (principal); R06.02 Shortness of breath | CPT/HCPCS: 99212 ==

== ENCOUNTER → 2022-05-04 10:46 | Outpatient (BNVA) | payer MEDICAID, SELFPAY | PROVIDERS: PCP Family Medicine; Visit Provider Anesthesiology | DX: G89.4 Chronic pain syndrome (principal); M50.30 Other cervical disc degeneration, unspecified cervical region; M47.812 Spondylosis without myelopathy or radiculopathy, cervical region; M47.816 Spondylosis without myelopathy or radiculopathy, lumbar region | CPT/HCPCS: 99212 ==

== ENCOUNTER → 2022-06-22 15:02 | Outpatient (BNVA) | payer MEDICAID, SELFPAY | PROVIDERS: PCP Family Medicine; Visit Provider Internal Medicine Pulmonary Disease | DX: R06.00 Dyspnea, unspecified (principal); R06.02 Shortness of breath; J38.3 Other diseases of vocal cords; G47.33 Obstructive sleep apnea (adult) (pediatric); Z99.89 Dependence on other enabling machines and devices | CPT/HCPCS: 99212 ==

== ENCOUNTER 2022-07-05 09:25 | Outpatient (REF) | payer MEDICAID, SELFPAY ==
[2022-07-05 10:49] LABS: MANUAL DIFF FLAG NO
[2022-07-05 10:55] LABS: Basophils Percent Auto 0.4 % (0-2); Eosinophils Absolute Auto 0.2 X10*3/uL (0.0-0.4); Eosinophils Percent Auto 2.1 % (0-4); Hematocrit 40.7 % (42.0-52.0); Hemoglobin 13.5 g/dl (14.0-18.0); Imm Gran Abs Auto 0.02 X10*3/uL (0.00-0.03); Imm Gran Pct Auto 0.3 % (0.0-0.4); Lymphocytes Absolute Auto 3.8 X10*3/uL (1.2-4.9); Lymphocytes Percent Auto 50.8 % (20-40); Mean Corpuscular HGB Conc 33.2 g/dl (31.0-36.0); Mean Corpuscular Hemoglobin 30.9 pg (27.0-33.0); Mean Corpuscular Volume 93.1 fL (80.0-98.0); Monocytes Absolute Auto 0.5 X10*3/uL (0.1-1.2); Monocytes Percent Auto 6.6 % (2-11); Neutrophils Percent Auto 39.8 % (45-73); Platelet Count 335 X10*3/uL (160-400); Red Blood Count 4.37 X10*6/uL (4.60-5.80); White Blood Count 7.5 X10*3/uL (4.8-10.8)
[2022-07-05 11:04] LABS: Alanine Aminotransferase 19 U/L (0-40); Albumin Level 4.2 g/dL (3.5-5.0); Alkaline Phosphatase 102 U/L (39-117); Anion Gap 12 (12-20); Aspartate Amino Transferase 22 U/L (5-37); Bilirubin Total 0.5 mg/dL (0.0-1.0); Blood Urea Nitrogen 15 mg/dL (9-16); C Reactive Protein 0.17 mg/dL (< or = 0.50); Carbon Dioxide 27 mmol/L (22-29); Chloride 107 mmol/L (96-108); Estimated Glomerular Filt Rate > 60; Glucose Random 106 mg/dL (60-115); Potassium 4.2 mmol/L (3.3-5.1); Sodium 142 mmol/L (135-145); Total Protein 6.9 g/dL (6.5-8.0)
[2022-07-05 11:33] LABS: Erythrocyte Sedimentation Rate 4 MM/HR (0-15)
== END 2022-07-05 09:26 | disposition home or self-care (01) ==
LOC: HO.10HDL 09:25
PROVIDERS: Visit Provider Nurse Practitioner Family
DX: L40.50 Arthropathic psoriasis, unspecified (principal)
CPT/HCPCS: 36415; 80053; 85025; 85652; 86140

== ENCOUNTER 2022-07-08 10:23 | Day surgery (SDC) | payer MEDICAID, SELFPAY ==
--- NOTE | 2022-07-07 13:35 | HO.ANESPROP2 ---
Documented by User: Sophy Styles NP 07/07/22 13:42 HPI - Anesthesia Eval Consult details Narrative: 57yo M for Spinal Cord Stimulation Trial s/p epidural injection 03/2022 with MAC PMFSH Active Problems Active Problems: All Active Problems (Updated 06/22/22 @ 15:57 by Gamaliel Jimenez MD) Vocal cord dysfunction (Acute) Lumbar radiculopathy (Acute) Disc degeneration, lumbar (Acute) Liver cyst (Acute) Orthopnea (Acute) Osteoarthritis of left hip (Acute) Dyspnea (Acute) Nonalcoholic steatohepatitis (CROSS) (Acute) Leg pain (Acute) Avascular necrosis of bone of left hip (Acute) Trochanteric bursitis of left hip (Acute) Trochanteric bursitis of right hip (Acute) Liver cyst (Acute) SOB (shortness of breath) (Acute) Back pain (Acute) Right sided numbness (Acute) Patellofemoral arthritis of right knee (Acute) DAYNA (obstructive sleep apnea) (Acute) Chest pain (Acute) Status post cardiac catheterization (Acute) Lipoma of scalp (Acute) Spondylosis of thoracic spine (Acute) Spondylosis of lumbar spine (Acute) Psoriasis (Acute) Psoriatic arthritis (Acute) Chronic pain syndrome (Acute) Spondylosis of lumbar region without myelopathy or radiculopathy (Acute) Spondylosis, cervical (Acute) Degeneration, intervertebral disc, cervical (Acute) Past Medical History Medical History Asthma Avascular necrosis Chronic pain Chronic pain syndrome Degeneration, intervertebral disc, cervical Depression Dysphagia Fatty liver HTN (hypertension) Hx of chest pain Hypothyroid Kidney cysts Lipoma of scalp Mood disorder DAYNA on CPAP Pre-diabetes Psoriasis Psoriatic arthritis Schatzki's ring 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 Spondylosis, cervical Family History Family History Father Cirrhosis Alcoholism Mother Diabetes HTN (hypertension) Parkinson disease Brother Cirrhosis Alcoholism Family history of problems with anesthesia: No Surgical History Surgical History H/O neck surgery History of colonoscopy Hx of cardiac cath Hx of endoscopy Hx of hand surgery Status post cardiac catheterization Status post excision of lipoma (~10/21/21) History of Problems with Anesthesia: No Social History Social History Household Members: Spouse and Children Are you a primary outdoor emergency care technician to a significant other at home: No Do you presently have visiting nurse or other home services: No Alcohol intake: never Patient Tobacco Use Status: Former Tobacco user Tobacco use type: Cigarette Second Hand Smoke Exposure: No Have you been hit, kicked, punched, or otherwise hurt by someone within the past year? If so, by whom?: No Are you DNR?: No Advance Directives: No Advance Directives Information Provided: Yes Recently lost weight without trying: No Nutrition Risks: No Nutritional Risk Poor oral hygiene: No Current occupational status: disabled Current occupation: rt handed Meds Allergies Allergy/AdvReac Type Severity Reaction Status Date / Time No Known Allergies Allergy Verified 06/22/22 15:14 [No Known Allergies*] Home Medications Medication Instructions Recorded Confirmed Last Taken Type albuterol sulfate 90 mcg/actuation 2 puff inhalation Q6H PRN Wheezing 08/10/20 07/04/22 Unknown History aerosol inhaler (ProAir HFA) amitriptyline 25 mg tablet 25 mg PO BEDTIME 08/10/20 07/04/22 Unknown History escitalopram oxalate 20 mg tablet 20 mg PO DAILY 08/10/20 07/04/22 03/31/22 History fluticasone propionate 50 1 spray intranasal DAILY 08/10/20 07/04/22 Unknown History mcg/actuation nasal spray,suspension gabapentin 300 mg capsule 300 mg PO TID 03/29/21 07/04/22 03/31/22 History docusate sodium 100 mg capsule 1 cap PO BID 04/29/21 07/04/22 Unknown History atorvastatin 40 mg tablet 40 mg PO DAILY 08/30/21 07/04/22 Unknown History baclofen 10 mg tablet 10 mg PO BEDTIME 10/27/21 07/04/22 Unknown History buspirone 15 mg tablet 15 mg PO BID 10/27/21 07/08/22 07/08/22 07:00 History amlodipine 5 mg tablet 1 tab PO DAILY 03/23/22 07/04/22 03/31/22 History levothyroxine 75 mcg tablet 1 tab PO DAILY 06/07/08/22 07/08/22 07:00 History Exam Exam Date and Time: July 07, 2022 1335 Pertinent Lab Results Pertinent Lab Results: Laboratory Tests 07/05/22 07/05/22 10:15 10:15 WBC 7.5 Hgb 13.5 L Hct 40.7 L Plt Count 335 Sodium 142 Potassium 4.2 Chloride 107 Carbon Dioxide 27 BUN 15 Creatinine 0.99 Narrative Narrative: Cardiac cath 09/2021 angiographically normal coronaries EKG 2020 Vent. Rate : 068 BPM ? ? Atrial Rate : 068 BPM ?? P-R Int : 160 ms? QRS Dur : 084 ms ? ? QT Int : 352 ms ? ? ? P-R-T Axes : 041 017 022 degrees ?? QTc Int : 374 ms ? ? Normal sinus rhythm Normal ECG When compared with ECG of 10-MAR-2020 17:07, No significant changes seen ECHO 2019 Conclusions: - The left ventricular systolic function is normal.? The visually estimated ejection fraction is between 65-70%. ? - No obvious valvular pathology seen on this study.? ? ?stress echocardiogram done on 09/17/2020 showing no EKG or echo evidence of ischemia Assessment and Plan Assessment Anesthesia Assessment: Chart Reviewed Final Anesthetic Review Family History of Problems with Anesthesia: No History of Problems with Anesthesia: No Documented by User: Tomas Mendiola MD 07/08/22 12:55 [facility] Past Medical History Medical History Asthma Avascular necrosis Chronic pain Chronic pain syndrome Degeneration, intervertebral disc, cervical Depression Dysphagia Fatty liver HTN (hypertension) Hx of chest pain Hypothyroid Kidney cysts Lipoma of scalp Mood disorder DAYNA on CPAP Pre-diabetes Psoriasis Psoriatic arthritis Schatzki's ring 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 Spondylosis, cervical Family History Family History Father Cirrhosis Alcoholism Mother Diabetes HTN (hypertension) Parkinson disease Brother Cirrhosis Alcoholism Surgical History Surgical History H/O neck surgery History of colonoscopy Hx of cardiac cath Hx of endoscopy Hx of hand surgery Status post cardiac catheterization Status post excision of lipoma (~10/21/21) Social History Social History Household Members: Spouse and Children Are you a primary outdoor emergency care technician to a significant other at home: No Do you presently have visiting nurse or other home services: No Alcohol intake: never Patient Tobacco Use Status: Former Tobacco user Tobacco use type: Cigarette Second Hand Smoke Exposure: No Have you been hit, kicked, punched, or otherwise hurt by someone within the past year? If so, by whom?: No Are you DNR?: No Advance Directives: No Advance Directives Information Provided: Yes Recently lost weight without trying: No Nutrition Risks: No Nutritional Risk Poor oral hygiene: No Current occupational status: disabled Current occupation: rt handed Meds Allergies Allergy/AdvReac Type Severity Reaction Status Date / Time No Known Allergies Allergy Verified 06/22/22 15:14 [No Known Allergies*] Home Medications Medication Instructions Recorded Confirmed Last Taken Type albuterol sulfate 90 mcg/actuation 2 puff inhalation Q6H PRN Wheezing 08/10/20 07/04/22 Unknown History aerosol inhaler (ProAir HFA) amitriptyline 25 mg tablet 25 mg PO BEDTIME 08/10/20 07/04/22 Unknown History escitalopram oxalate 20 mg tablet 20 mg PO DAILY 08/10/20 07/04/22 03/31/22 History fluticasone propionate 50 1 spray intranasal DAILY 08/10/20 07/04/22 Unknown History mcg/actuation nasal spray,suspension gabapentin 300 mg capsule 300 mg PO TID 03/29/21 07/04/22 03/31/22 History docusate sodium 100 mg capsule 1 cap PO BID 04/29/21 07/04/22 Unknown History atorvastatin 40 mg tablet 40 mg PO DAILY 08/30/21 07/04/22 Unknown History baclofen 10 mg tablet 10 mg PO BEDTIME 10/27/21 07/04/22 Unknown History buspirone 15 mg tablet 15 mg PO BID 10/27/21 07/08/22 07/08/22 07:00 History amlodipine 5 mg tablet 1 tab PO DAILY 03/23/22 07/04/22 03/31/22 History levothyroxine 75 mcg tablet 1 tab PO DAILY 03/23/22 07/08/22 07/08/22 07:00 History Exam Airway Mallampati Class: III TM Dist: >3cm Neck ROM: Full Heart: rrr Lungs: clear Assessment and Plan Final Anesthetic Review NPO: Yes ASA Class: III Final Preanesthetic Review: No Changes in Pt Med Stat, Meds/Allgs Chart Reviewed, Consent Obtained/Reviewed and Anes Risks/Benef Reviewed Patient Risk: Intermediate Procedure Risk: Low Anesthetic Plan Anesthetic Plan: MAC: Disposition: Standard PACU
--- NOTE | ~2022-07-08 | FL_ITS ---
EXAMINATION: XR FLUOROSCOPY WITH IMAGES CLINICAL INFORMATION: Spinal stimulator trial. COMPARISON: Chest radiographs 08/30/2021 TECHNIQUE: Fluoroscopy performed by Dr. Winston Boykin. Fluoroscopy time: 2.8 minutes. Cumulative Dose: 44.5 mGy. DAP: 12.1 Gycm2. Images: 3. FINDINGS: There are 2 spinal stimulator electrodes seen ascending the posterior spinal canal. The electrode tips are at level of mid thoracic spine, estimated at T7 and T8. There is no visible kinking or defect of the leads. FL/FL guidance in OR IMPRESSION: Fluoroscopy for pain management procedure.
[2022-07-08 12:29] VITALS: BP 118/72; PULSE 70; RESP 18; TEMP 36.3; O2SAT 97; BMI 29.2
--- NOTE | 2022-07-08 12:53 | P.HPSUR_ITS ---
Pre-Procedural Eval Section A Date of Service: 07/08/22 Section B Chief Complaint: spondylosis,chronic pain syndrome Details of Present Illness: as above Relevant Family History (Specify if Yes): No Relevant Social History: None Present Medications: see Short Stay Collaborative assessment Medical History: No relevant PMH History of Previous Operations: No relevant previous surgery Allergies: Allergies Allergy/AdvReac Type Severity Reaction Status Date / Time No Known Allergies Allergy Verified 06/22/22 15:14 [No Known Allergies*] Review of Systems Sugical H&P ROS: Negative: Constitution, Cardiovascular, Respiratory, Neuro logical, Psychiatric, Hem-Onc, Allergic/Immunologic, Gastrointestinal, Genitourinary, Musculoskeletal, Integumentary, Endocrine and Eyes/Ears/Nose/Throat Exam Surgical H&P Exam: Normal: HEENT, Normal: Heart, Normal: Lungs, Normal: Extremities, Normal: Abdomen, Normal: Skin and Normal: Neurological Plan Diagnosis/Plan: Unchanged I have reviewed the history and physical and performed a pertinent physical examination on my patient. No changes have occurred unless specified.
[2022-07-08 14:26] LABS: MRSA Nasal PCR NEGATIVE (Negative); SA Nasal PCR NEGATIVE (Negative)
[2022-07-08 14:31] VITALS: BP 104/64; PULSE 69; RESP 16; TEMP 36.2; O2SAT 93
--- NOTE | 2022-07-08 14:40 | PM.OP ---
Brief Operative Note Date of Service: 07/08/22 Pre-op diagnosis: Chronic pain syndrome, disc degeneration lumbar, spondylosis lumbar spine. Post-op diagnosis: same Procedure: Trial of [employer] spinal cord stimulator. Implants: None permanent Surgeon: Winston Boykin MD Anesthesia: MAC Was an Wheel Shop Supervisor used for this Procedure?: No Estimated blood loss (mL): 1 Pathology: none sent Condition: stable Disposition: PACU
[2022-07-08 14:46] VITALS: BP 118/78; PULSE 72; RESP 16; O2SAT 97
--- NOTE | 2022-07-08 14:46 | W.PM.OPN ---
Operative Note Operative Note Date of Service: 07/08/22 Narrative: Kvng is very pleasant Jamaican speaking 57 y.o gentleman who came today into the operating room for trial of spinal cord stimulator [employer] for the treatment of disc degeneration, spondylosis and radiculopathy of the lumbar spine and chronic pin syndrome. Preoperatively patient received ? cefazolin 2 g approximately 10 minutes before the procedure. After obtaining informed consent the patient was brought to the operating room, HE was positioned prone on operating table, [place] [employer] monitors were applied and the patient was moderately sedated.? ?Time-out was performed delineating correct site, side, the nature of the procedure, patient's allergy, preoperative antibiotic if needed.? All operating room staff was participating in OR time-out procedure. Patient's entire back was prepped with Chloraprep twice and draped with full body fenestrated laparoscopy drape.? Sterilely draped C-arm was brought over operating field and square picture of the ? T12-L1 L2 and L3 vertebrae? were demonstrated on the screen.? ?Attention FIRST? was concentrated on the L1-L2 epidural interspace.? The location of the projection of the right pedicle center of the L3 vertebra was found on the skin using C-arm.? This location was injected with mixture of lidocaine 2% and Marcaine 0.5% - 5 cc.? After that 11 blade was used to make a yassine on the skin.? 10 cm 14 gauge? introducer epidural needle was inserted through the yassine and advanced to? L1-L2 epidural interspace.? The advancement of the needle was performed on anterior posterior and lateral views.?Loss of resistance to air? technique were used to locate epidural space., epidural lead was inserted through the needle and it was advanced to?? top of T8 vertebra projection slightly right to the midline.? ? .? After that? the location of the projection of the LEFT pedicle center of the? L3 vertebra was found on the skin using C-arm.? This location was injected with mixture of lidocaine 2% and Marcaine 0.5% 5 cc.? After that 11 blade was used to make a yassine on the skin.? 10 cm 14 gauge introducer epidural needle was inserted through the yassine and advanced to L1- L2 epidural interspace.? The advancement of the needle was performed on anterior posterior and lateral views.? Guitar wire and loss of resistance to air technique were used to locate epidural space.? When guitar wire was spread in the epidural fashion, epidural lead was inserted through the needle and advanced to the middle of? T8 epidural interspace slightly? left to the existing electrode. Impedance was checked and was satisfactory . at this moment patient was awaken of the epidural leads were connected to the testing wires and trial stimulation was performed.? Patient was reporting stumulation corresponding to his low back and right lower extremity pain. Impedance was checked and it was found to be satisfactory. Posterior lead placement was verified by lateral x-ray ? The stimulation was found to be? corresponding to the patient's pain. The needles were withdrawn, the stylette wires were removed from the epidural leads.? The anchoring devices were dislodged on the leads and advanced to the level of the skin.? The anchoring devices were sutured with two 0-0 ?Silk sutures per each anchor to the skin of the patient. The central fixation screw of each anchor was rotated until three clicks were heard. The leads were connected to testing device.? Bacitracin ointment was applied to the entrance point of bilateral wires.? Sterile dressing was applied to the patient's back.? The testing device was also taped to the patient's back.? the patient tolerated procedure well he was awaken and taken outside of the operating room to recovery room. he recovered uneventfully.
[2022-07-08 15:01] VITALS: BP 120/70; PULSE 65; RESP 18; O2SAT 97
[2022-07-08 15:16] VITALS: BP 123/61; PULSE 61; RESP 18; O2SAT 97
[2022-07-08 15:31] VITALS: BP 107/67; PULSE 77; RESP 18; TEMP 36.3; O2SAT 96
== END 2022-07-08 16:14 | disposition home or self-care (01) ==
PROVIDERS: Nurse Practitioner Family; PCP Family Medicine; Visit Provider Anesthesiology
PROC: (CPT 63650; principal; 2022-07-08 12:10)
DX: M47.816 Spondylosis without myelopathy or radiculopathy, lumbar region (principal); G89.4 Chronic pain syndrome; M50.30 Other cervical disc degeneration, unspecified cervical region; M47.812 Spondylosis without myelopathy or radiculopathy, cervical region; M87.9 Osteonecrosis, unspecified; J45.909 Unspecified asthma, uncomplicated; I10 Essential (primary) hypertension; G47.33 Obstructive sleep apnea (adult) (pediatric); L40.50 Arthropathic psoriasis, unspecified; R73.03 Prediabetes; Z79.899 Other long term (current) drug therapy; Z87.891 Personal history of nicotine dependence
CPT/HCPCS: 63650 ×2; 87640; 87641; C1713; C1778; J0690; J2250; J2795

== ENCOUNTER → 2022-07-13 09:20 | Outpatient (BNVA) | payer MEDICAID, SELFPAY | PROVIDERS: PCP Family Medicine; Visit Provider Anesthesiology | DX: G89.4 Chronic pain syndrome (principal); M50.30 Other cervical disc degeneration, unspecified cervical region; M47.812 Spondylosis without myelopathy or radiculopathy, cervical region; M47.816 Spondylosis without myelopathy or radiculopathy, lumbar region | CPT/HCPCS: 99212 ==

== ENCOUNTER 2022-07-20 11:02 | Outpatient (REF) | payer MEDICAID, SELFPAY ==
[2022-07-22 22:48] LABS: Antibody to SS-A Antigen <1.0 NEG AI (<1.0 NEG); Antibody to SS-B Antigen <1.0 NEG AI (<1.0 NEG); Scleroderma 70 Antibody <1.0 NEG AI (<1.0 NEG)
== END 2022-07-20 11:03 | disposition home or self-care (01) ==
LOC: HO.10HDL 11:02
PROVIDERS: Visit Provider Internal Medicine Pulmonary Disease
DX: R06.02 Shortness of breath (principal); L40.50 Arthropathic psoriasis, unspecified; M79.7 Fibromyalgia; M47.816 Spondylosis without myelopathy or radiculopathy, lumbar region; M50.30 Other cervical disc degeneration, unspecified cervical region; G47.9 Sleep disorder, unspecified; F32.A Depression, unspecified; Z79.899 Other long term (current) drug therapy
CPT/HCPCS: 36415; 86235; 99212

== ENCOUNTER → 2022-08-04 09:45 | Outpatient (BNVA) | payer MEDICAID, SELFPAY | PROVIDERS: PCP Family Medicine; Visit Provider Internal Medicine Pulmonary Disease | DX: G47.33 Obstructive sleep apnea (adult) (pediatric) (principal); R06.02 Shortness of breath; Z99.89 Dependence on other enabling machines and devices | CPT/HCPCS: 99212 ==

== ENCOUNTER → 2022-08-05 09:27 | Outpatient (BNVA) | payer MEDICAID, SELFPAY | PROVIDERS: PCP Family Medicine; Visit Provider Internal Medicine Gastroenterology | DX: K21.9 Gastro-esophageal reflux disease without esophagitis (principal) | CPT/HCPCS: 99212 ==

== ENCOUNTER → 2022-08-17 10:24 | Outpatient (BNVA) | payer MEDICAID, SELFPAY | PROVIDERS: PCP Family Medicine; Visit Provider Anesthesiology | DX: M50.30 Other cervical disc degeneration, unspecified cervical region (principal); M47.812 Spondylosis without myelopathy or radiculopathy, cervical region; M47.816 Spondylosis without myelopathy or radiculopathy, lumbar region; G89.4 Chronic pain syndrome | CPT/HCPCS: 99212 ==

== ENCOUNTER 2022-08-26 10:57 | Outpatient (REF) | payer MEDICAID, SELFPAY ==
--- NOTE | ~2022-08-26 | MR_ITS ---
EXAMINATION: MR ABDOMEN WITHOUT AND WITH CONTRAST CLINICAL INFORMATION: Liver disease COMPARISON: Previous MR of the abdomen most recent April 2022 TECHNIQUE: MR abdomen was performed without and with use of 7 mL intravenous Gadavist gadolinium contrast. Postcontrast images are performed in multiphase dynamic sequences. Imaging was performed in 3 planes. FINDINGS: LUNG BASES: The visualized lung bases are unremarkable. LIVER, GALLBLADDER, AND BILIARY TREE: The liver is normal in size and shape. There is mild signal loss in the liver on out of phase sequences suggestive of fatty infiltration. There are multiple liver cysts. Largest measures 4 x 5 cm in the anterior segment of the right lobe of the liver. The gallbladder is unremarkable with no evidence of gallbladder wall thickening, or obvious pericholecystic inflammatory changes. PANCREAS: Unremarkable. SPLEEN: Normal. ADRENAL GLANDS: Normal. KIDNEYS AND URETERS: Bilateral renal cysts. Stable 1.6 cm high signal T1 weighted sequences nonenhancing lesion in the left kidney suggestive of a Bosniak type II proteinaceous or hemorrhagic cyst. Multiple simple Bosniak type I cortical and peripelvic cysts. Renal cysts appear unchanged from previous exam. The kidneys are otherwise normal. GASTROINTESTINAL TRACT: Diverticulosis. No bowel obstruction. No ascites or fluid collection. ABDOMINAL WALL: No significant hernia is appreciated. LYMPH NODES: No lymphadenopathy. VASCULAR: Unremarkable. OSSEOUS STRUCTURES: Marrow signal normal. MR/MR abdomen wo/w con IMPRESSION: Mild fatty infiltration of the liver. Stable liver and bilateral renal cysts. Mild diverticulosis.
== END 2022-08-26 10:58 | disposition home or self-care (01) ==
LOC: HO.MRI 10:57
PROVIDERS: Visit Provider Internal Medicine Gastroenterology
DX: K76.89 Other specified diseases of liver (principal)
CPT/HCPCS: 74183; A9585

== ENCOUNTER 2022-09-09 08:40 | Outpatient (REF) | payer MEDICAID, SELFPAY ==
[2022-09-09 10:33] LABS: MANUAL DIFF FLAG NO
[2022-09-09 10:36] LABS: Basophils Percent Auto 0.6 % (0-2); Eosinophils Absolute Auto 0.2 X10*3/uL (0.0-0.4); Eosinophils Percent Auto 2.8 % (0-4); Hematocrit 41.8 % (42.0-52.0); Hemoglobin 13.9 g/dl (14.0-18.0); Imm Gran Abs Auto 0.02 X10*3/uL (0.00-0.03); Imm Gran Pct Auto 0.3 % (0.0-0.4); Lymphocytes Absolute Auto 3.9 X10*3/uL (1.2-4.9); Mean Corpuscular HGB Conc 33.3 g/dl (31.0-36.0); Mean Corpuscular Volume 93.3 fL (80.0-98.0); Monocytes Absolute Auto 0.6 X10*3/uL (0.1-1.2); Monocytes Percent Auto 7.7 % (2-11); Neutrophils Absolute Auto 2.6 x10*3/uL (2.0-8.3); Neutrophils Percent Auto 35.6 % (45-73); Platelet Count 294 X10*3/uL (160-400); Red Blood Count 4.48 X10*6/uL (4.60-5.80); Red Cell Distribution Width 12.8 % (11.0-16.0); White Blood Count 7.3 X10*3/uL (4.8-10.8)
[2022-09-09 10:56] LABS: Alanine Aminotransferase 25 U/L (0-40); Aspartate Amino Transferase 25 U/L (5-37); C Reactive Protein 0.19 mg/dL (< or = 0.50); Estimated Glomerular Filt Rate > 60
[2022-09-09 11:28] LABS: Erythrocyte Sedimentation Rate 4 MM/HR (0-15)
== END 2022-09-09 08:41 | disposition home or self-care (01) ==
LOC: HO.10HDL 08:40
PROVIDERS: Visit Provider Nurse Practitioner Family
DX: L40.50 Arthropathic psoriasis, unspecified (principal); Z79.899 Other long term (current) drug therapy
CPT/HCPCS: 36415; 82565; 84450; 84460; 85025; 85652; 86140

== ENCOUNTER 2022-09-13 06:21 | Outpatient (REF) | payer MEDICAID, SELFPAY ==
--- NOTE | ~2022-09-13 | FL_ITS ---
EXAMINATION: XR FLUOROSCOPY WITH IMAGES CLINICAL INFORMATION: M53.3 - Sacrococcygeal disorders, not elsewhere classified COMPARISON: MR abdomen 08/26/2022 TECHNIQUE: Fluoroscopy Supervised By: Dr. Winston Boykin. Fluoroscopy Time: 0.1 minutes. Cumulative Dose: 1.84 mGy. DAP: 0.503 Gycm2. Images: 2. FINDINGS: Spinal needle overlies lower right SI joint. There is contrast in the periarticular soft tissues with probable early intra-articular contrast. No vasculature communication appreciated. FL/FL guidance in treatment room IMPRESSION: Fluoroscopy for pain management procedure.
== END 2022-09-13 06:22 | disposition home or self-care (01) ==
LOC: CF 06:21
PROVIDERS: Visit Provider Anesthesiology
DX: M50.30 Other cervical disc degeneration, unspecified cervical region (principal); M47.812 Spondylosis without myelopathy or radiculopathy, cervical region; M47.816 Spondylosis without myelopathy or radiculopathy, lumbar region; G89.4 Chronic pain syndrome
CPT/HCPCS: 27096

== ENCOUNTER 2022-09-16 09:15 | Outpatient (REF) | payer MEDICAID, SELFPAY ==
--- NOTE | ~2022-09-16 | FL_ITS ---
EXAMINATION: FL BARIUM SWALLOW CLINICAL INFORMATION: Dysphagia COMPARISON: None TECHNIQUE: Barium swallow examination is performed using fluoroscopic evaluation in addition to multiple fluoroscopic spot views. The patient is imaged both upright and prone and using both thick and thin sulfate along with effervescent granules. Fluoroscopy time: 1.5 minutes DAP: 19.553 Gycm2 Images: 138 FINDINGS: Cervical fusion hardware noted. This is at the C5-C6 and C6-C7 level. This does not obstruct flow. There is normal oral bolus control and transfer. Normal posterior tilt of the epiglottis with elevation of the hyoid. No cricopharyngeal abnormality. The 13 mm barium tablet was swallowed without difficulty. There was brief composite passage at the gastroesophageal junction. The esophagus was normal in course, caliber, and contour. There was normal distensibility with no fixed segment of narrowing. No focal mucosal abnormality was identified. Mild esophageal dysmotility was observed. Contrast passed freely across the gastroesophageal junction into the stomach. No significant hiatal hernia. No gastroesophageal reflux was observed. FL/FL barium swallow IMPRESSION: Mild esophageal dysmotility noted. Otherwise unremarkable esophagram study.
== END 2022-09-16 09:16 | disposition home or self-care (01) ==
LOC: HO.XRAY 09:15
PROVIDERS: PCP Family Medicine; Visit Provider Internal Medicine Gastroenterology
DX: R13.10 Dysphagia, unspecified (principal)
CPT/HCPCS: 74220

== ENCOUNTER → 2022-09-19 10:01 | Outpatient (BNVA) | payer MEDICAID, SELFPAY | PROVIDERS: PCP Family Medicine; Visit Provider Anesthesiology | DX: M50.30 Other cervical disc degeneration, unspecified cervical region (principal); M47.812 Spondylosis without myelopathy or radiculopathy, cervical region; M47.816 Spondylosis without myelopathy or radiculopathy, lumbar region; M48.061 Spinal stenosis, lumbar region without neurogenic claudication; G89.4 Chronic pain syndrome; G95.19 Other vascular myelopathies; M48.062 Spinal stenosis, lumbar region with neurogenic claudication | CPT/HCPCS: 99212 ==

== ENCOUNTER → 2022-09-22 09:44 | Outpatient (BNVA) | payer MEDICAID, SELFPAY | PROVIDERS: PCP Family Medicine; Visit Provider Nurse Practitioner Family | DX: L40.50 Arthropathic psoriasis, unspecified (principal); M47.816 Spondylosis without myelopathy or radiculopathy, lumbar region; M50.30 Other cervical disc degeneration, unspecified cervical region; R06.02 Shortness of breath; E03.9 Hypothyroidism, unspecified | CPT/HCPCS: 99212 ==

== ENCOUNTER 2022-09-23 09:04 | Day surgery (SDC) | payer MEDICAID, SELFPAY ==
--- NOTE | 2022-09-22 12:15 | HO.ANESPROP2 ---
Documented by User: Sophy Styles NP 09/22/22 12:16 HPI - Anesthesia Eval Consult details Narrative: 57yo M for Minimally Invasive Lumbar Decompresion (Mild) L4-L5 PMFSH Active Problems Active Problems: All Active Problems (Updated 09/19/22 @ 13:18 by Winston Boykin MD) Neurogenic claudication due to lumbar spinal stenosis (Acute) Neurogenic claudication (Acute) Spinal stenosis at L4-L5 level (Acute) Sacroiliac joint pain (Acute) Vocal cord dysfunction (Acute) Lumbar radiculopathy (Acute) Disc degeneration, lumbar (Acute) Liver cyst (Acute) Orthopnea (Acute) Osteoarthritis of left hip (Acute) Dyspnea (Acute) Nonalcoholic steatohepatitis (CROSS) (Acute) Leg pain (Acute) Avascular necrosis of bone of left hip (Acute) Trochanteric bursitis of left hip (Acute) Trochanteric bursitis of right hip (Acute) Liver cyst (Acute) SOB (shortness of breath) (Acute) Back pain (Acute) Right sided numbness (Acute) Patellofemoral arthritis of right knee (Acute) DAYNA (obstructive sleep apnea) (Acute) Chest pain (Acute) Status post cardiac catheterization (Acute) Lipoma of scalp (Acute) Spondylosis of thoracic spine (Acute) Spondylosis of lumbar spine (Acute) Psoriasis (Acute) Psoriatic arthritis (Acute) Chronic pain syndrome (Acute) Spondylosis of lumbar region without myelopathy or radiculopathy (Acute) Spondylosis, cervical (Acute) Degeneration, intervertebral disc, cervical (Acute) Past Medical History Medical History Asthma Avascular necrosis Chronic pain Chronic pain syndrome Degeneration, intervertebral disc, cervical Depression Dysphagia Fatty liver HTN (hypertension) Hx of chest pain Hypothyroid Kidney cysts Lipoma of scalp Mood disorder DAYNA on CPAP Pre-diabetes Psoriasis Psoriatic arthritis Schatzki's ring 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 Spondylosis, cervical Family History Family History Father Cirrhosis Alcoholism Mother Diabetes HTN (hypertension) Parkinson disease Brother Cirrhosis Alcoholism Family history of problems with anesthesia: No Surgical History Surgical History H/O neck surgery History of colonoscopy History of surgery Hx of cardiac cath Hx of endoscopy Hx of hand surgery Status post cardiac catheterization Status post excision of lipoma (~10/21/21) History of Problems with Anesthesia: No Social History Social History Household Members: Spouse and Children Are you a primary medicare insurance specialist to a significant other at home: No Do you presently have visiting nurse or other home services: No Alcohol intake: never Patient Tobacco Use Status: Former Tobacco user Tobacco use type: Cigarette Second Hand Smoke Exposure: No Are you DNR?: No Advance Directives: No Advance Directives Information Provided: Yes Nutrition Risks: No Nutritional Risk Current occupational status: disabled Current occupation: rt handed Meds Allergies Allergy/AdvReac Type Severity Reaction Status Date / Time No Known Allergies Allergy Verified 09/23/22 10:19 [No Known Allergies*] Home Medications Medication Instructions Recorded Confirmed Last Taken Type albuterol sulfate 90 mcg/actuation 2 puff inhalation Q6H PRN Wheezing 08/10/20 09/23/22 Unknown History aerosol inhaler (ProAir HFA) escitalopram oxalate 20 mg tablet 20 mg PO DAILY 08/10/20 09/23/22 03/31/22 History fluticasone propionate 50 1 spray intranasal DAILY 08/10/20 09/23/22 Unknown History mcg/actuation nasal spray,suspension docusate sodium 100 mg capsule 1 cap PO BID 04/29/21 09/23/22 Unknown History buspirone 15 mg tablet 15 mg PO BID 10/27/21 09/23/22 07/08/22 07:00 History amlodipine 5 mg tablet 1 tab PO DAILY 03/23/22 09/23/22 03/31/22 History levothyroxine 75 mcg tablet 1 tab PO DAILY 03/23/22 09/23/22 07/08/22 07:00 History amitriptyline 50 mg tablet 50 mg PO BEDTIME 08/05/22 09/23/22 Unknown History atorvastatin 80 mg tablet 80 mg PO BEDTIME 08/05/22 09/23/22 Unknown History cholecalciferol (vitamin D3) 50 50 mcg PO DAILY 08/05/22 09/23/22 Unknown History mcg (2,000 unit) tablet epinephrine 0.3 mg/0.3 mL IM DIRECTED 08/05/22 Unknown History injection, auto-injector lidocaine 5 % topical patch 0 patch topical 08/05/22 Unknown History (Lidoderm) tizanidine 4 mg tablet 4 mg PO Q6-8H PRN Muscle Spasm 08/17/22 09/23/22 Unknown History Exam Exam Date and Time: September 22, 2022 1215 Pertinent Lab Results Pertinent Lab Results: Laboratory Tests 07/05/22 09/09/22 09/09/22 10:15 08:45 08:45 WBC 7.3 Hgb 13.9 L Hct 41.8 L Plt Count 294 Sodium 142 Potassium 4.2 Chloride 107 Carbon Dioxide 27 BUN 15 Creatinine 1.20 Narrative Narrative: Cardiac cath 09/2021 angiographically normal coronaries EKG 2020 Vent. Rate : 068 BPM ? ? Atrial Rate : 068 BPM ?? P-R Int : 160 ms? QRS Dur : 084 ms ? ? QT Int : 352 ms ? ? ? P-R-T Axes : 041 017 022 degrees ?? QTc Int : 374 ms ? ? Normal sinus rhythm Normal ECG When compared with ECG of 10-MAR-2020 17:07, No significant changes seen ECHO 2019 Conclusions: - The left ventricular systolic function is normal.? The visually estimated ejection fraction is between 65-70%. ? - No obvious valvular pathology seen on this study.? ? ?stress echocardiogram done on 09/17/2020 showing no EKG or echo evidence of ischemia Assessment and Plan Assessment Anesthesia Assessment: Chart Reviewed Final Anesthetic Review Family History of Problems with Anesthesia: No History of Problems with Anesthesia: No Documented by User: Tomas Mendiola MD 09/23/22 14:13 [facility] Past Medical History Medical History Asthma Avascular necrosis Chronic pain Chronic pain syndrome Degeneration, intervertebral disc, cervical Depression Dysphagia Fatty liver HTN (hypertension) Hx of chest pain Hypothyroid Kidney cysts Lipoma of scalp Mood disorder DAYNA on CPAP Pre-diabetes Psoriasis Psoriatic arthritis Schatzki's ring 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 Spondylosis, cervical Family History Family History Father Cirrhosis Alcoholism Mother Diabetes HTN (hypertension) Parkinson disease Brother Cirrhosis Alcoholism Surgical History Surgical History H/O neck surgery History of colonoscopy History of surgery Hx of cardiac cath Hx of endoscopy Hx of hand surgery Status post cardiac catheterization Status post excision of lipoma (~10/21/21) Social History Social History Household Members: Spouse and Children Are you a primary medicare insurance specialist to a significant other at home: No Do you presently have visiting nurse or other home services: No Alcohol intake: never Patient Tobacco Use Status: Former Tobacco user Tobacco use type: Cigarette Second Hand Smoke Exposure: No Are you DNR?: No Advance Directives: No Advance Directives Information Provided: Yes Nutrition Risks: No Nutritional Risk Current occupational status: disabled Current occupation: rt handed Meds Allergies Allergy/AdvReac Type Severity Reaction Status Date / Time No Known Allergies Allergy Verified 09/23/22 10:19 [No Known Allergies*] Home Medications Medication Instructions Recorded Confirmed Last Taken Type albuterol sulfate 90 mcg/actuation 2 puff inhalation Q6H PRN Wheezing 08/10/20 09/23/22 Unknown History aerosol inhaler (ProAir HFA) escitalopram oxalate 20 mg tablet 20 mg PO DAILY 08/10/20 09/23/22 03/31/22 History fluticasone propionate 50 1 spray intranasal DAILY 08/10/20 09/23/22 Unknown History mcg/actuation nasal spray,suspension docusate sodium 100 mg capsule 1 cap PO BID 04/29/21 09/23/22 Unknown History buspirone 15 mg tablet 15 mg PO BID 10/27/21 09/23/22 07/08/22 07:00 History amlodipine 5 mg tablet 1 tab PO DAILY 03/23/22 09/23/22 03/31/22 History levothyroxine 75 mcg tablet 1 tab PO DAILY 03/23/22 09/23/22 07/08/22 07:00 History amitriptyline 50 mg tablet 50 mg PO BEDTIME 08/05/22 09/23/22 Unknown History atorvastatin 80 mg tablet 80 mg PO BEDTIME 08/05/22 09/23/22 Unknown History cholecalciferol (vitamin D3) 50 50 mcg PO DAILY 08/05/22 09/23/22 Unknown History mcg (2,000 unit) tablet epinephrine 0.3 mg/0.3 mL IM DIRECTED 08/05/22 Unknown History injection, auto-injector lidocaine 5 % topical patch 0 patch topical 08/05/22 Unknown History (Lidoderm) tizanidine 4 mg tablet 4 mg PO Q6-8H PRN Muscle Spasm 08/17/22 09/23/22 Unknown History Exam Airway Mallampati Class: III TM Dist: >3cm Loose/Missing/Broken Teeth: No Heart: rrr Lungs: clear Assessment and Plan Final Anesthetic Review NPO: Yes ASA Class: III Final Preanesthetic Review: No Changes in Pt Med Stat, Meds/Allgs Chart Reviewed, Consent Obtained/Reviewed and Anes Risks/Benef Reviewed Patient Risk: High Procedure Risk: Low Anesthetic Plan Anesthetic Plan: GA Disposition: Standard PACU
[2022-09-23] VITALS (7 sets, daily range): BP systolic 115–140; BP diastolic 63–88; PULSE 79–92; RESP 14–18; TEMP 36.1–36.6; O2SAT 95–100; BMI 29.7
--- NOTE | ~2022-09-23 | FL_ITS ---
EXAMINATION: XR FLUOROSCOPY WITH IMAGES CLINICAL INFORMATION: Lumbar decompression. COMPARISON: None. TECHNIQUE: Fluoroscopy Supervised By: Dr. Winston Boykin Fluoroscopy Time: 3.2 minutes Cumulative Dose: 104 mGy DAP: 22.2 Gycm2. Images: 4. FINDINGS: There are 4 digital images of the lumbar spine obtained which reveal needle positioned posterior to the left para midline L5 vertebra. The last image reveals a spinal needle positioned posterior to L5-S1 disc level. FL/FL guidance in OR IMPRESSION: Fluoroscopy guidance was provided to referring physician during spinal intervention.
[2022-09-23] MEDS: Lactated Ringers 1,000 ML 100 ML IVCONT (09:51)
--- NOTE | 2022-09-23 13:55 | MHC.SHP ---
Pre-Procedural Eval Section A Date of Service: 09/23/22 The patient is an INPATIENT: No Changes since office visit: Yes Patient answered all questions The History & Physical has been completed within 30 days and I have reviewed it.: No Section B Chief Complaint: Spinal stenosis, lumbar region Details of Present Illness: spinal stnosis L4- L5 with neurogenic claudication. Relevant Family History (Specify if Yes): No Relevant Social History: None Present Medications: see Short Stay Collaborative assessment Medical History: No relevant PMH History of Previous Operations: No relevant previous surgery Allergies: Allergies Allergy/AdvReac Type Severity Reaction Status Date / Time No Known Allergies Allergy Verified 09/23/22 10:19 [No Known Allergies*] Review of Systems Sugical H&P ROS: Negative: Constitution, Cardiovascular, Respiratory, Neurological, Psychiatric, Hem-Onc, Allergic/Immunologic, Gastrointestinal, Genitourinary, Musculoskeletal, Integumentary, Endocrine and Eyes/Ears/Nose/Throat Exam Surgical H&P Exam: Normal: HEENT, Normal: Heart, Normal: Lungs, Normal: Extremities, Normal: Abdomen, Normal: Skin and Normal: Neurological Plan Diagnosis/Plan: Unchanged I have reviewed the history and physical and performed a pertinent physical examination on my patient. No changes have occurred unless specified. Time Spent With Patient Time: Total time managing care of this patient today __10__ minutes.
--- NOTE | 2022-09-23 16:07 | P.BOP_ITS ---
Brief Operative Note Date of Service: 09/23/22 Pre-op diagnosis: spinal stenosis with neurogenic claudication. Post-op diagnosis: same Procedure: minimally invasive lumbar decompression. Surgeon: Winston Boykin MD Anesthesia: GETA Was an Camp Recreation Specialist used for this Procedure?: No Estimated blood loss (mL): 9 Pathology: none sent Condition: stable Disposition: PACU
--- NOTE | 2022-09-23 16:08 | W.PM.OPN ---
Operative Note Operative Note Date of Service: 09/23/22 Narrative: Mild procedure Kvng is a very pleasant Luxembourgish speaking 57 y.o. male who is suffering from L4-L5 spinal stenosis with neurogenic claudication. he came today to the OR to receive minimally invasive lumbar decompression to alleviate neurogenic claudication and lower back pain. Risks of peripheral nerve damage, bleeding, infection and post-dural rupture headache requiring neurosurgery if epidural blood patch would be non-successful to stop his headache - all of it was explained to the patient with gracious help of Vincent, the certified foreign language interpreter. the patient received cefazolin 2 g 25 minutes before the procedure The patient was taken to the operating room on the stretcher, ASA monitors were applied, GETA was induced and the patient was transferred on the operating table prone, with all the pressure points protected and the bolster under hip level to assist reversing the lordosis of the spine. The patient's back was prepped with chloroprep and draped with the fenestrating laparoscopy full body drape. Sterilely draped C- arm was brought over the operating field and square picture of the L4 and L5 vertebrae were delineated on the c-arm screen. 45 degree tilt of the reciever to the left established a safety boundary in contralateral oblique view to visualize ventral interlaminar line. In the progection of L5- S1 interlaminar space 3 mm right to the midline 11 blade scalpel was used to make a yassine on the skin. After that the troacar with portal was inserted through the yassine and advanced to the right upper L5 lamina close to the L5 spinous process under AP view. Under contralateral oblique view bone sculpting rongeur was inserted to remove adequate amount of lamina from the superior surface of the L5 lamina and from inferior aspect of the L4 lamina. The laminitomy created a passage for the tissue sculpting instrument used in debulking ligamentum flavum. Ligamentum flavum was debulked until diminished returns. After that the procedure was repeated on the left side of the of L4- L5 interspace through the separate 3 mm incision in mirroring fashion. Upon the completion of the procedure the 2 small wounds were closed using steri- strips and sterile dressing was applied. The patient tolerated the procedure fairly well, he was transfered on the stretcher supine awaken extubated and transfered stable to PACU
== END 2022-09-23 17:02 | disposition home or self-care (01) ==
PROVIDERS: PCP Family Medicine; Visit Provider Anesthesiology
PROC: (CPT 0275T; principal; 2022-09-23 11:20)
DX: M48.062 Spinal stenosis, lumbar region with neurogenic claudication (principal); M47.816 Spondylosis without myelopathy or radiculopathy, lumbar region; G89.4 Chronic pain syndrome; M87.9 Osteonecrosis, unspecified; M50.30 Other cervical disc degeneration, unspecified cervical region; G95.19 Other vascular myelopathies; I10 Essential (primary) hypertension; J45.909 Unspecified asthma, uncomplicated; G47.33 Obstructive sleep apnea (adult) (pediatric); Z79.51 Long term (current) use of inhaled steroids; Z79.899 Other long term (current) drug therapy; Z87.891 Personal history of nicotine dependence
CPT/HCPCS: 0275T; C1889; J0330; J0690; J1100; J2250; J2405; J2795; J3010; J3301; Q9965; Q9967

== ENCOUNTER → 2022-09-29 13:42 | Outpatient (BNVA) | payer MEDICAID, SELFPAY | PROVIDERS: PCP Family Medicine; Visit Provider Anesthesiology | DX: Z48.00 Encounter for change or removal of nonsurgical wound dressing (principal) | CPT/HCPCS: 99211 ==

== ENCOUNTER → 2022-10-06 10:17 | Outpatient (BNVA) | payer MEDICAID, SELFPAY | PROVIDERS: PCP Family Medicine; Visit Provider Anesthesiology | DX: M50.30 Other cervical disc degeneration, unspecified cervical region (principal); M47.812 Spondylosis without myelopathy or radiculopathy, cervical region; M47.816 Spondylosis without myelopathy or radiculopathy, lumbar region; M48.061 Spinal stenosis, lumbar region without neurogenic claudication; M48.062 Spinal stenosis, lumbar region with neurogenic claudication; G89.4 Chronic pain syndrome; G95.19 Other vascular myelopathies | CPT/HCPCS: 99212 ==

== ENCOUNTER 2022-12-16 08:56 | Outpatient (REF) | payer MEDICAID, SELFPAY ==
--- NOTE | ~2022-12-16 | XR_ITS ---
EXAMINATION: XR HIP, LEFT CLINICAL INFORMATION: Left hip pain COMPARISON: 11/22/2019 TECHNIQUE: Two views of the left hip. FINDINGS: Redemonstration of subchondral sclerosis of the left femoral head. No evidence of flattening of the femoral head. No significant degenerative changes of the left hip. No acute osseous abnormalities. Pelvic phleboliths and left extremity vascular calcifications are present. XR/XR hip LT min 2V IMPRESSION: Persistent subchondral sclerosis of the left femoral head which may be secondary to avascular necrosis. No evidence of femoral head flattening.
[2022-12-16 11:16] LABS: MANUAL DIFF FLAG NO
[2022-12-16 11:58] LABS: Basophils Percent Auto 0.4 % (0-2); Eosinophils Absolute Auto 0.2 X10*3/uL (0.0-0.4); Hematocrit 42.6 % (42.0-52.0); Imm Gran Abs Auto 0.03 X10*3/uL (0.00-0.03); Imm Gran Pct Auto 0.4 % (0.0-0.4); Lymphocytes Absolute Auto 3.6 X10*3/uL (1.2-4.9); Lymphocytes Percent Auto 44.3 % (20-40); Mean Corpuscular HGB Conc 32.9 g/dl (31.0-36.0); Mean Corpuscular Hemoglobin 30.6 pg (27.0-33.0); Mean Corpuscular Volume 93.2 fL (80.0-98.0); Mean Platelet Volume 9.2 fL (9.4-12.4); Monocytes Absolute Auto 0.6 X10*3/uL (0.1-1.2); Monocytes Percent Auto 7.4 % (2-11); Neutrophils Absolute Auto 3.6 x10*3/uL (2.0-8.3); Neutrophils Percent Auto 44.5 % (45-73); Platelet Count 311 X10*3/uL (160-400); Red Blood Count 4.57 X10*6/uL (4.60-5.80); Red Cell Distribution Width 13.5 % (11.0-16.0); White Blood Count 8.1 X10*3/uL (4.8-10.8)
[2022-12-16 12:31] LABS: Erythrocyte Sedimentation Rate 3 MM/HR (0-15)
[2022-12-16 12:41] LABS: Alanine Aminotransferase 27 U/L (0-40); Aspartate Amino Transferase 22 U/L (5-37); C Reactive Protein 0.15 mg/dL (< or = 0.50); Estimated Glomerular Filt Rate > 60
== END 2022-12-16 08:57 | disposition home or self-care (01) ==
LOC: HO.10HDL 08:56
PROVIDERS: Absent Provider Family Medicine; PCP Family Medicine; Visit Provider Nurse Practitioner Family
DX: M25.552 Pain in left hip (principal); L40.50 Arthropathic psoriasis, unspecified; Z79.899 Other long term (current) drug therapy
CPT/HCPCS: 36415; 73502; 82565; 84450; 84460; 85025; 85652; 86140

== ENCOUNTER 2022-12-19 09:06 | Outpatient (REF) | payer MEDICAID, SELFPAY ==
[2022-12-19 11:52] LABS: TSH reflex Free T4 5.44 uIU/mL (0.32-4.0)
[2022-12-19 14:37] LABS: Free T4 (Free Thyroxine) 0.69 ng/dL (0.71-1.85)
== END 2022-12-19 09:07 | disposition home or self-care (01) ==
LOC: HO.10HDL 09:06
PROVIDERS: Visit Provider Family Medicine
DX: E03.9 Hypothyroidism, unspecified (principal)
CPT/HCPCS: 36415; 84439; 84443

== ENCOUNTER → 2022-12-27 15:14 | Outpatient (BNVA) | payer MEDICAID, SELFPAY | PROVIDERS: PCP Family Medicine; Visit Provider Internal Medicine Endocrinology, Diabetes & Metabolism | DX: E03.9 Hypothyroidism, unspecified (principal) | CPT/HCPCS: 99202 ==

== ENCOUNTER → 2022-12-30 09:07 | Outpatient (BNVA) | payer MEDICAID, SELFPAY | PROVIDERS: PCP Family Medicine; Visit Provider Internal Medicine Gastroenterology | DX: R10.13 Epigastric pain (principal) | CPT/HCPCS: 99212 ==

== ENCOUNTER → 2023-01-06 10:43 | Outpatient (BNVA) | payer MEDICAID, SELFPAY | PROVIDERS: PCP Family Medicine; Visit Provider Internal Medicine Pulmonary Disease | DX: R06.00 Dyspnea, unspecified (principal); K22.2 Esophageal obstruction; G47.33 Obstructive sleep apnea (adult) (pediatric); Z99.89 Dependence on other enabling machines and devices | CPT/HCPCS: 99212 ==

== ENCOUNTER → 2023-01-16 12:31 | Outpatient (BNVA) | payer MEDICAID, SELFPAY | PROVIDERS: PCP Family Medicine; Visit Provider Nurse Practitioner Family | DX: L40.50 Arthropathic psoriasis, unspecified (principal); L40.9 Psoriasis, unspecified; M47.816 Spondylosis without myelopathy or radiculopathy, lumbar region; M50.30 Other cervical disc degeneration, unspecified cervical region; R06.02 Shortness of breath | CPT/HCPCS: 99212 ==

== ENCOUNTER 2023-01-20 08:44 | Outpatient (REF) | payer MEDICAID, SELFPAY ==
--- NOTE | ~2023-01-20 | US_ITS ---
EXAMINATION: US COMPLETE ABDOMEN WITH LIVER ELASTOGRAPHY CLINICAL INFORMATION: Fatty liver. Right flank pain. COMPARISON: Previous MRI of the abdomen most recent August 2022, abdominal ultrasound August [address] of the abdomen and pelvis July 2019 TECHNIQUE: Real-time imaging of the abdominal viscera. Noninvasive ultrasound liver fibrosis assessment is performed using Oc ElastPQ point quantification shear wave elastography (2D-SWE) with a C5-2 MHz transducer. Multiple elastography samples are obtained. FINDINGS: PANCREAS: Normal. ABDOMINAL AORTA: Not well visualized due to bowel gas. INFERIOR VENA CAVA: Visualized portions are normal. LIVER: Liver echotexture is increased probably representing fatty infiltration. Liver contour and size is normal. There is a stable 3.6 x 3.5 x 4.2 cm cyst in the right lobe the liver. No other focal liver lesion. No biliary duct dilatation. The right lobe measures 15 cm in length. The left lobe measures 9 cm in length. Portal flow is normal/hepatopedal Shear wave liver elastography median stiffness is 1.35 m/s (reference: normal median stiffness is 1.3 m/s or less). IQR/median stiffness to assess sampling precision is 0.07 (reference: good quality data set is IQR/median stiffness of 0.15 or less). GALLBLADDER: Normal. The gallbladder is physiologically distended without evidence of stones, sludge, polyps, wall thickening or pericholecystic fluid. COMMON BILE DUCT: Normal in caliber measuring 0.5 cm in diameter. RIGHT KIDNEY: Small peripelvic cysts. No hydronephrosis. No renal calculi . The kidney measures 9.6 cm in maximum dimension. LEFT KIDNEY: Small cortical and peripelvic cysts. No hydronephrosis. No renal calculi . The kidney measures 10.6 cm in maximum dimension. SPLEEN: Normal. The spleen measures 9 cm in maximum dimension. FREE FLUID: None. US/US abdomen comp w elastography IMPRESSION: 1. Impression: Echogenic liver probably representing fatty. Stable 3.5 x 4 cm liver cyst. 2. Liver elastography: Adequate liver sampling. Normal liver stiffness. REFERENCE: Society of Radiologists in Ultrasound Liver Stiffness Thresholds (2019): LIVER STIFFNESS THRESHOLDS: *Liver Stiffness equal or less than 1.3 m/s: High probability of being normal. *Liver Stiffness less than 1.7 m/s: In the absence of other known clinical signs, rules out compensated advanced chronic liver disease. *Liver Stiffness 1.7-2.1 m/s: Suggestive of compensated advanced chronic liver disease but need further test for confirmation. *Liver Stiffness over 2.1 m/s: Rules in compensated advanced chronic liver disease. *Liver Stiffness over 2.4 m/s: Suggestive of clinically significant portal hypertension. QUALITY OF DATA SET: *IQR/Median value equal or less than 0.15 implies a quality data set. *IQR/Median value over 0.15 implies a poor quality data set. SIGNIFICANT CHANGE FROM PRIOR EXAM: Significant change if liver stiffness measurement is 10% or greater from prior exam. OTHER CONSIDERATIONS: The stage of liver fibrosis may be overestimated in the setting of acute hepatitis, liver inflammation, elevated liver function tests, hepatic vascular congestion, obstructive cholestasis, non-fasting state, and infiltrative diseases such as amyloidosis and lymphoma. In some patients with NAFLD, the liver stiffness thresholds for compensated advanced chronic liver disease may be lower. In causes other than viral hepatitis and NAFLD, liver stiffness thresholds are not well established.
== END 2023-01-20 08:45 | disposition home or self-care (01) ==
LOC: HO.US 08:44
PROVIDERS: PCP Family Medicine; Visit Provider Internal Medicine Gastroenterology
DX: R10.13 Epigastric pain (principal)
CPT/HCPCS: 76705; 76981

== ENCOUNTER → 2023-01-24 07:23 | Outpatient (REF) | payer MEDICAID, SELFPAY ==
--- NOTE | 2023-01-24 07:26 | CA_ITS ---
Transthoracic Echocardiogram Patient (Last, First, Middle): Kvng Ramon E Gender: Male Date of : 1965 Age: 57 Procedure Date: 01/24/2023 Procedure Type: Transthoracic Echocardiogram Location: OP Height: 160.02 cm Weight: 76.2 kg BSA: 1.80 m2 Heart Rate: bpm BP: 130 / 76 mmHg Loss Claim Clerk: TO Referring MD: Gamaliel Jimenez MD Symptoms: R06.00 - Dyspnea, unspecified Study Quality: Fair ECG Rhythm: Sinus Conclusions: - The left ventricular systolic function is normal. The calculated ejection fraction is 59% by biplane method. - No obvious valvular pathology seen on this study. Findings Left Ventricle Normal left ventricular cavity size. The left ventricular systolic function is normal. The calculated ejection fraction is 59% by biplane method. There is no evidence of regional wall motion abnormalities. Diastolic function is normal for age. There is mild septal asymmetric hypertrophy. Right Ventricle Normal right ventricular cavity size and systolic function. Atria Both atria are normal in size. Aortic Valve There is a normal trileaflet aortic valve. There is no aortic valve stenosis. There is no aortic valve regurgitation. Mitral Valve The mitral valve appears normal. There is no mitral valve regurgitation. There is no mitral valve stenosis. Pulmonic Valve The pulmonic valve is likely normal. Tricuspid Valve There is trace tricuspid valve regurgitation. There is no evidence of pulmonary hypertension. Great Vessels The asc aorta is normal in size. Venous The inferior vena cava is normal in size and collapses greater than 50% with inspiration. Pericardium/Pleural There is no evidence of pericardial effusion. Prior Study Comparison No significant change compared to prior study dated: 09/16/2020. Recommendations, Care & Conclusions No obvious valvular pathology seen on this study. Measurements 2D Linear Measurements IVSd: 1.31 0.6-0.9/0.6-1.0 cm LVIDd: 4.45 3.9-5.3/4.2-5.9 cm LVIDd Index: 2.47 2.4-3.2/2.2-3.1 cm/m2 LVIDs: 2.58 2.0-3.6 cm LVPWd: 0.75 0.7-1.1 cm LA Diam: 3.10 2.7-3.8/3.0-4.0 cm LAIDs Index: 1.72 1.5-2.3 cm/m2 LV Mass: 195.15 67-162/88-224 g LV Mass Index: 108.42 43-95/49-115 g/m2 LVOT Diam: 2.00 3.0+(-)1.3 cm 2D Systolic Function EF 4C: 55.60 >55% EF 2C: 61.80 >55% EF BiP: 58.50 >55% Mitral Valve MV Pk E: 0.64 MV PK A: 0.62 MV Decel Time: 205.00 E/A: 1.00 E'Lateral: 7.94 E'Medial: 6.09 E/E' Med: 10.50 E/E' Lat: 8.00 PHT: 60.00 MVA PHT: 3.67 Decel [place]: 3.12 Aortic Valve AoV Pk Mitchell: 1.16 AoV Mn Mitchell: 0.82 AoV VTI: 0.23 AoV Pk Grad: 5.00 Aov Mn Grad: 3.00 LACI Cont.VTI: 2.73 LVOT LVOT Pk Mitchell: 1.03 LVOT Mn Mitchell: 0.65 LVOT VTI: 0.20 LVOT Pk Grad: 4.00 LVOT Mn Grad: 2.00 LVOT Diam: 2.00 LVOT Area: 3.14 Diastolic Function MV Pk E: 0.64 MV Pk A: 0.62 E/A: 1.00 E'Medial: 6.09 E/E' Med: 10.50 E' Laterial: 7.94 E/E' Lat: 8.00 Right Ventricle TAPSE (mm): 19.50 TVS' Mitchell: 8.81 Tricuspid Valve TR Pk Mitchell: 1.91 TR Pk Grad: 15.00 RA Press: 3.00 RVSP: 18.00 Great Vessels Aorta Sinus of Valsalva: 2.98 2.0-3.[address] [place]: 2.53 1.7-3.4 cm Ao Asc: 2.90 2.1-3.4 cm Updated in Other Vendor System with Status of Final Louie Quiros MD electronically signed on 01/24/2023 4:07:38 PM with status of Final
== END ==
LOC: HO.CARD 07:23
PROVIDERS: PCP Family Medicine; Visit Provider Internal Medicine Pulmonary Disease
DX: R06.00 Dyspnea, unspecified (principal)
CPT/HCPCS: 93306

== ENCOUNTER → 2023-01-30 22:57 | Outpatient (REF) | payer MEDICAID, SELFPAY | LOC: HO.SL 22:57 | PROVIDERS: PCP Family Medicine; Visit Provider Internal Medicine Pulmonary Disease | DX: G47.33 Obstructive sleep apnea (adult) (pediatric) (principal) | CPT/HCPCS: 95810 ==

== ENCOUNTER → 2023-02-01 15:56 | Outpatient (BNVA) | payer MEDICAID, SELFPAY | PROVIDERS: PCP Family Medicine; Visit Provider Anesthesiology | DX: M50.30 Other cervical disc degeneration, unspecified cervical region (principal); M47.812 Spondylosis without myelopathy or radiculopathy, cervical region; M47.816 Spondylosis without myelopathy or radiculopathy, lumbar region; M48.061 Spinal stenosis, lumbar region without neurogenic claudication; M48.062 Spinal stenosis, lumbar region with neurogenic claudication; M51.36 Other intervertebral disc degeneration, lumbar region; G89.4 Chronic pain syndrome; G95.19 Other vascular myelopathies | CPT/HCPCS: 99212 ==

== ENCOUNTER 2023-02-08 09:06 | Outpatient (REF) | payer MEDICAID, SELFPAY ==
--- NOTE | ~2023-02-08 | XR_ITS ---
EXAMINATION: XR HIP, RIGHT CLINICAL INFORMATION: Pain. COMPARISON: None available. TECHNIQUE: Two views of the right hip. FINDINGS: Bones and soft tissues are normal. No fracture. Alignment is anatomic. Hip joint space is maintained. XR/XR hip RT w PEL1V IMPRESSION: Normal right hip.
== END 2023-02-08 09:07 | disposition home or self-care (01) ==
LOC: HO.HOSX 09:06
PROVIDERS: PCP Family Medicine; Visit Provider Physician Assistant
DX: M25.551 Pain in right hip (principal)
CPT/HCPCS: 73502; 99212

== ENCOUNTER → 2023-02-10 09:45 | Outpatient (BNVA) | payer MEDICAID, SELFPAY | PROVIDERS: PCP Family Medicine; Referring Provider Family Medicine; Visit Provider Internal Medicine Gastroenterology | DX: K76.89 Other specified diseases of liver (principal); K76.0 Fatty (change of) liver, not elsewhere classified | CPT/HCPCS: 99212 ==

== ENCOUNTER 2023-02-14 08:18 | Outpatient (REF) | payer MEDICAID, SELFPAY ==
[2023-02-14 12:27] LABS: Free T4 (Free Thyroxine) 0.94 ng/dL (0.71-1.85)
== END 2023-02-14 08:19 | disposition home or self-care (01) ==
LOC: HO.10HDL 08:18
PROVIDERS: Visit Provider Internal Medicine Endocrinology, Diabetes & Metabolism
DX: E03.9 Hypothyroidism, unspecified (principal)
CPT/HCPCS: 36415; 84439; 84443

== ENCOUNTER → 2023-02-16 14:08 | Outpatient (BNVA) | payer MEDICAID, SELFPAY | PROVIDERS: PCP Family Medicine; Visit Provider Internal Medicine Pulmonary Disease | DX: G47.33 Obstructive sleep apnea (adult) (pediatric) (principal); J45.909 Unspecified asthma, uncomplicated; R06.00 Dyspnea, unspecified; R60.0 Localized edema; Z99.89 Dependence on other enabling machines and devices | CPT/HCPCS: 99212 ==

== ENCOUNTER 2023-02-27 09:54 | Outpatient (REF) | payer MEDICAID, SELFPAY ==
--- NOTE | ~2023-02-27 | XR_ITS ---
EXAMINATION: XR HIP, RIGHT CLINICAL INFORMATION: Pain COMPARISON: Previous x-ray February 2023 TECHNIQUE: Two views of the right hip. FINDINGS: Bones and soft tissues are normal. No fracture. Alignment is anatomic. Hip joint space is maintained. XR/XR hip RT min 2V IMPRESSION: Normal right hip.
== END 2023-02-27 09:55 | disposition home or self-care (01) ==
LOC: HO.HHCX 09:54
PROVIDERS: Visit Provider Student in an Organized Health Care Education/Training Program
DX: M25.551 Pain in right hip (principal)
CPT/HCPCS: 73502

== ENCOUNTER 2023-02-28 06:02 | Outpatient (REF) | payer MEDICAID, SELFPAY ==
--- NOTE | ~2023-02-28 | FL_ITS ---
EXAMINATION: XR FLUOROSCOPY WITH IMAGES CLINICAL INFORMATION: Chronic pain syndrome COMPARISON: None available. TECHNIQUE: Fluoroscopy Supervised By: Dr. John Paul Rosa. Fluoroscopy Time: 0.1 minutes. Cumulative Dose: 6.15 mGy. DAP: 1.67 Gycm2. Images: 2. FINDINGS: There is a needle positioned at the L1-L2 disc level likely in the posterior interspace. No contrast is visualized on the present exam. Visualized vertebral heights, alignment and disc heights are normal. FL/FL guidance in treatment room IMPRESSION: Fluoroscopy was provided to referring physician for pain management.
== END 2023-02-28 06:03 | disposition home or self-care (01) ==
LOC: CF 06:02
PROVIDERS: Visit Provider Anesthesiology
DX: G89.4 Chronic pain syndrome (principal); M48.062 Spinal stenosis, lumbar region with neurogenic claudication; M53.3 Sacrococcygeal disorders, not elsewhere classified; M54.16 Radiculopathy, lumbar region; M51.36 Other intervertebral disc degeneration, lumbar region
CPT/HCPCS: 62323; J1170

== ENCOUNTER 2023-03-02 15:26 | Emergency (ER) | payer MEDICAID, SELFPAY ==
--- NOTE | ~2023-03-02 | CT_ITS ---
EXAMINATION: CT ABDOMEN AND PELVIS WITHOUT CONTRAST CLINICAL INFORMATION: Right flank pain radiating to the right testicle. COMPARISON: CT abdomen 07/18/2019. TECHNIQUE: Multidetector volumetric imaging was performed from the superior aspect of the liver through the pubic symphysis. Sagittal and coronal reformatted images were obtained on the technologist's workstation. This CT examination was performed using dose optimization techniques as appropriate, variously including the following: *Automated exposure control *Adjustment of mA and/or kV according to patient size (this includes techniques or standardized protocols for targeted exams where dose is matched to indication/reason for exam; i.e. extremities or head) *Use of iterative reconstruction technique DLP: 537 mGy-cm FINDINGS: LUNG BASES: Linear atelectasis at right lung base. LIVER, GALLBLADDER, AND BILIARY TREE: Hepatic cyst right lobe of liver measuring 4 cm. This is stable since 2019 CT abdomen. No suspicious liver lesions. No intrahepatic bile duct dilatation. The gallbladder is unremarkable with no evidence of radiopaque gallstones, gallbladder wall thickening, or obvious pericholecystic inflammatory changes. PANCREAS: Unremarkable. SPLEEN: Unremarkable. ADRENAL GLANDS: Unremarkable. KIDNEYS AND URETERS: The kidneys are normal in size, shape, and attenuation. No hydronephrosis, hydroureter, or calculi seen. No perinephric stranding. BLADDER: Unremarkable. GASTROINTESTINAL TRACT: There are scattered diverticula throughout the colon. There is no diverticulitis. There is no bowel wall thickening /edema. There is no bowel obstruction. There is a moderate to large volume of stool in the colon. The appendix is normal . The small bowel loops are unremarkable. The stomach is normal. There is no hiatal hernia. ABDOMINAL WALL: No significant hernia is appreciated. LYMPH NODES: Normal. VASCULAR: Unremarkable. PELVIC VISCERA: Prostate measures 4 cm transverse. Coarse calcifications within the prostate. OSSEOUS STRUCTURES: Unremarkable. CT/CT abdomen pelvis wo IV con IMPRESSION: No acute abnormality CT scan abdomen pelvis. Fleischner guidelines were followed.
[2023-03-02 15:37] VITALS: BP 143/89; PULSE 81; RESP 18; TEMP 36.6; O2SAT 97; BMI 30.8
--- NOTE | 2023-03-02 15:37 | ED_ITS ---
HPI - Abdominal Pain General Chief Complaint: General Medical Stated Complaint: right testicular pain Time Seen by Provider: 03/02/23 22:38 Source: patient Mode of arrival: ambulatory Limitations: no limitations History of Present Illness HPI narrative: Patient comes to emergency room complaining of chronic right inguinal pain. Patient states it has been hurting for about a month. Patient states that he has pain from the right testicle up to the right lower quadrant. Patient denies nausea vomiting diarrhea, no dysuria, no urinary incontinence or retention. Denies any trauma. Related Data Home Medications Medication Instructions Recorded Confirmed albuterol sulfate 90 mcg/actuation 2 puff inhalation Q6H PRN Wheezing 08/10/20 01/16/23 aerosol inhaler (ProAir HFA) escitalopram oxalate 20 mg tablet 20 mg PO DAILY 08/10/20 01/16/23 fluticasone propionate 50 1 spray intranasal DAILY 08/10/20 01/16/23 mcg/actuation nasal spray,suspension buspirone 15 mg tablet 15 mg PO BID 10/27/21 01/16/23 amlodipine 5 mg tablet 1 tab PO DAILY 03/23/22 01/16/23 amitriptyline 50 mg tablet 50 mg PO BEDTIME 08/05/22 01/16/23 atorvastatin 80 mg tablet 80 mg PO BEDTIME 08/05/22 01/16/23 cholecalciferol (vitamin D3) 50 50 mcg PO DAILY 08/05/22 01/16/23 mcg (2,000 unit) tablet epinephrine 0.3 mg/0.3 mL IM DIRECTED 08/05/22 01/16/23 injection, auto-injector lidocaine 5 % topical patch 0 patch topical 08/05/22 01/16/23 (Lidoderm) Previous Rx's Medication Instructions Recorded loratadine 10 mg tablet 10 mg PO DAILY #30 tabs 07/13/22 etanercept 50 mg/mL (1 mL) 50 mg subcut QWEEK #4 mL 09/28/22 subcutaneous pen injector (Enbrel Deaick) fluticasone 250 mcg-salmeterol 50 1 ea PO BID #60 ea 12/12/22 mcg/dose blistr powdr for inhalation (Advair Diskus) levothyroxine 88 mcg tablet 88 mcg PO DAILY #30 tabs 12/27/22 omeprazole 40 mg capsule,delayed 40 mg PO DAILY #90 caps 02/10/23 release bumetanide 1 mg tablet 1 mg PO DAILY 30 days #30 tabs 02/16/23 naloxone 4 mg/actuation nasal spray 1 spray intranasal Q2M PRN opioid 02/28/23 overdose #2 ea Allergies Allergy/AdvReac Type Severity Reaction Status Date / Time No Known Allergies Allergy Verified 02/10/23 09:56 [No Known Allergies*] Review of Systems Review of Systems Constitutional : No Weight loss, No Fever, No Chills, No Night Sweats, No Fatigue, No Malaise ENT/Mouth : No Hearing loss, No Ear Pain, No Nasal Congestion, No Sinus Pain, No Hoarseness, No sore throat, No Rhinorrhea, No Swallowing Difficulty Eyes: No Eye Pain, No Swelling, No Redness, No Foreign Body, No Discharge, No Vision Changes Cardiovascular : No Chest Pain, No SOB, No Dyspnea on Exertion, No Orthopnea, No Edema, No Palpitations Respiratory : No Cough, No Sputum, No Wheezing, No Smoke Exposure, No Dyspnea Gastrointestinal : No Nausea, No Vomiting, No Diarrhea, No Constipation, No abdominal Pain, No Hematochezia, No Melena Genitourinary : Complaining of right inguinal and right testicular pain month, No Dysuria, No Urinary Frequency, No Hematuria, No Urinary Incontinence, No Urgency, No Flank Pain, No Urinary Flow Changes, No Hesitancy Musculoskeletal : No joint pain, No Myalgias, No Joint Swelling Skin : No Skin Lesions, No rash Neuro : No Weakness, No Numbness, No Paresthesias, No Loss of Consciousness, No Dizziness, No Headache Psych : No Anxiety/Panic, No Depression, No SI/HI/AH/VH, No Social Issues, Heme/Lymph: No Bruising, No Bleeding,No Lymphadenopathy Endocrine : No Polyuria, No Polydipsia, No Temperature Intolerance PMFSH Past Medical History Medical History Asthma Avascular necrosis Chronic pain Chronic pain syndrome Degeneration, intervertebral disc, cervical Depression Dysphagia Fatty liver HTN (hypertension) Hx of chest pain Hypothyroid Kidney cysts Lipoma of scalp Mood disorder DAYNA on CPAP Pre-diabetes Psoriasis Psoriatic arthritis Schatzki's ring 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 Spondylosis, cervical Surgical History H/O neck surgery History of back surgery History of colonoscopy History of surgery Hx of cardiac cath Hx of endoscopy Hx of hand surgery Status post cardiac catheterization Status post excision of lipoma (~10/21/21) Family History Family History Father Cirrhosis Alcoholism Mother Diabetes HTN (hypertension) Parkinson disease Brother Cirrhosis Alcoholism Social History Social History Household Members: Spouse and Children Are you a primary account executive healthcare to a significant other at home: No Do you presently have visiting nurse or other home services: No Alcohol intake: never Patient Tobacco Use Status: Former Tobacco user Tobacco use type: Cigarette Smoked in Last 30 Days: No Second Hand Smoke Exposure: No Use of substances other than those prescribed or required for medical reasons: No Advance Directives: No Advance Directives Information Provided: Yes Current occupational status: disabled Current occupation: rt handed Physical Exam ED Vital Signs: Vital Signs - 24 hr 03/02/23 15:37 03/02/23 22:17 Temperature 97.8 F Pulse Rate 81 97 Respiratory Rate 18 17 Blood Pressure 143/89 H 147/96 H Pulse Oximetry 97 100 Oxygen Delivery Method Room Air Room Air BMI result Body Mass Index 30.8 Const Other: Appearance: Alert. Oriented X3. No acute distress. Eyes: Pupils equal, round and reactive to light. ENT: Pharynx normal. Neck: Normal inspection. Neck supple. No lymph nodes noted. No crepitus CVS: Normal heart rate and rhythm. Pulses normal. Normal S1 and S2 Respiratory: No respiratory distress. Breath sounds normal. No Wheezing. No rales Abdomen: Soft and nontender. No rigidity. No distention. : Normal male genitalia, discomfort to palpation on the right testicle, normal size, no discoloration, no testicle rotation, no palpable inguinal or femoral hernias, no saddle anesthesia Skin: Skin warm and dry. Normal skin color. Normal skin turgor. Extremities: No lower extremity edema. No Lacerations. No Rash Neuro: Oriented X 3. No motor deficit. No sensory deficit. Moving all extremities. No slurred speech. CN 2 through 12 grossly intact Psych: calm, cooperative, normal affect Course Course Course Narrative: This is a rapid medical exam. deferred additional HPI, ROS, PE to primary provider. 57 yo male with history of depression, asthma, HTN, hypothyroidism, DAYNA on CPAP here with right testicular pain with radiation to abdomen and back x 6-7 months worsened over the last month. Seen by PCP and referred in to the ER. Will obtain labs, UA, CT A/P. Low concern for torsion VSS Medical Decision Making Medical Decision Making MDM Narrative: -it is unclear why patient has right inguinal are/testicular pain for about a month. -patient does have chronic pain problems specially with the back, sees Dr. Boykin -patient denies UTI symptoms. -patient was offered Ketoralac, patient declined. Patient will follow up with Urology -patient did mention that sometimes even wearing pants hurts him, states the skin is very sensitive. It is possible that patient may have some nerve involvement. Patient is urged to follow up with Dr. Boykin. Lab Data 03/02/23 16:23 03/02/23 16:23 Labs: Lab Results 03/02/23 03/02/23 03/02/23 Range/Units 16:20 16:23 16:23 WBC 8.4 (4.8-10.8) X10*3/uL RBC 4.71 (4.60-5.80) X10*6/uL Hgb 14.4 (14.0-18.0) g/dl Hct 43.1 (42.0-52.0) % MCV 91.5 (80.0-98.0) fL MCH 30.6 (27.0-33.0) pg MCHC 33.4 (31.0-36.0) g/dl RDW 12.7 (11.0-16.0) % Plt Count 291 (160-400) X10*3/uL MPV 8.4 L (9.4-12.4) fL Immature Gran % (Auto) 0.2 (0.0-0.4) % Neut % (Auto) 40.3 L (45-73) % Lymph % (Auto) 49.8 H (20-40) % Louisa % (Auto) 6.4 (2-11) % Eos % (Auto) 2.9 (0-4) % Baso % (Auto) 0.4 (0-2) % Lymph # (Auto) 4.2 (1.2-4.9) X10*3/uL Louisa # (Auto) 0.5 (0.1-1.2) X10*3/uL Eos # (Auto) 0.2 (0.0-0.4) X10*3/uL Baso # (Auto) 0.0 (0.0-0.2) X10*3/uL Abs Immat Gran (auto) 0.02 (0.00-0.03) X10*3/uL Absolute Neuts (auto) 3.4 (2.0-8.3) x10*3/uL Absolute Nucleated RBC 0.000 (0.0-0.012) X10*3/uL Nucleated RBC % (auto) 0.0 (0.0-0.2) /100WBC Sodium 143 (135-145) mmol/L Potassium 4.5 (3.3-5.1) mmol/L Chloride 110 H (96-108) mmol/L Carbon Dioxide 27 (22-29) mmol/L Anion Gap 11 L (12-20) BUN 14 (9-16) mg/dL Creatinine 1.14 (0.5-1.4) mg/dL Estim Creat Clear Calc 64.8 Estimated GFR > 60 Random Glucose 87 (60-115) mg/dL Calcium 9.5 (8.4-10.2) mg/dL Total Bilirubin 0.5 (0.0-1.0) mg/dL Direct Bilirubin 0.1 (0.0-0.5) mg/dL AST 23 (5-37) U/L ALT 24 (0-40) U/L Alkaline Phosphatase 85 (39-117) U/L Total Protein 7.0 (6.5-8.0) g/dL Albumin 4.2 (3.5-5.0) g/dL Urine Color Yellow Urine Appearance Clear Urine pH 7.0 (5.0-9.0) Ur Specific [place] 1.020 (1.005-1.025) Urine Protein Negative (Neg-Trace) mg/dL Urine Glucose (UA) Negative (Negative) mg/dL Urine Ketones Negative (Negative) mg/dL Urine Blood Negative (Negative) Urine Nitrite Negative (Negative) Ur Leukocyte Esterase Negative (Negative) Discharge Plan Discharge Clinical Impression: Right testicular pain Patient Disposition: Home, Self-Care Instructions: Testicle Pain (ED) Additional Instructions: Please follow-up with your primary care physician tomorrow. If you have any worsening or new symptoms, please return to the emergency room or call 911 Prescriptions: No Action loratadine 10 mg tablet 10 mg PO DAILY Qty: 30 3RF Enbrel SureClick 50 mg/mL (1 mL) pen injector 50 mg subcut QWEEK Qty: 4 5RF fluticasone propion-salmeterol [Advair Diskus] 250-50 mcg/dose blister with device 1 ea PO BID Qty: 60 6RF naloxone 4 mg/actuation spray,non-aerosol 1 spray intranasal Q2M PRN (Reason: opioid overdose) Qty: 2 0RF Rx Instructions: spray 1 dose into ONE nostril; alternate nostrils w each dose until help arrives amlodipine 5 mg tablet 1 tab PO DAILY escitalopram oxalate 20 mg tablet 20 mg PO DAILY albuterol sulfate [ProAir HFA] 90 mcg/actuation HFA aerosol inhaler 2 puff inhalation Q6H PRN (Reason: Wheezing) fluticasone propionate 50 mcg/actuation spray,suspension 1 spray intranasal DAILY Rx Instructions: administer into each nostril buspirone 15 mg tablet 15 mg PO BID cholecalciferol (vitamin D3) 50 mcg (2,000 unit) tablet 50 mcg PO DAILY epinephrine 0.3 mg/0.3 mL auto-injector IM DIRECTED lidocaine [Lidoderm] 5 % adhesive patch,medicated 0 patch topical amitriptyline 50 mg tablet 50 mg PO BEDTIME atorvastatin 80 mg tablet 80 mg PO BEDTIME levothyroxine 88 mcg tablet 88 mcg PO DAILY Qty: 30 5RF omeprazole 40 mg capsule,delayed release(DR/EC) 40 mg PO DAILY Qty: 90 1RF bumetanide 1 mg tablet 1 mg PO DAILY 30 Days Qty: 30 6RF Referrals: Collin Bernardo MD [Physician] - 03/06/23
[2023-03-02 16:30] LABS: MANUAL DIFF FLAG NO
[2023-03-02 16:32] LABS: Basophils Percent Auto 0.4 % (0-2); Eosinophils Absolute Auto 0.2 X10*3/uL (0.0-0.4); Eosinophils Percent Auto 2.9 % (0-4); Hematocrit 43.1 % (42.0-52.0); Hemoglobin 14.4 g/dl (14.0-18.0); Imm Gran Abs Auto 0.02 X10*3/uL (0.00-0.03); Imm Gran Pct Auto 0.2 % (0.0-0.4); Lymphocytes Absolute Auto 4.2 X10*3/uL (1.2-4.9); Lymphocytes Percent Auto 49.8 % (20-40); Mean Corpuscular HGB Conc 33.4 g/dl (31.0-36.0); Mean Corpuscular Hemoglobin 30.6 pg (27.0-33.0); Mean Corpuscular Volume 91.5 fL (80.0-98.0); Mean Platelet Volume 8.4 fL (9.4-12.4); Monocytes Absolute Auto 0.5 X10*3/uL (0.1-1.2); Monocytes Percent Auto 6.4 % (2-11); Neutrophils Absolute Auto 3.4 x10*3/uL (2.0-8.3); Neutrophils Percent Auto 40.3 % (45-73); Platelet Count 291 X10*3/uL (160-400); Red Blood Count 4.71 X10*6/uL (4.60-5.80); Red Cell Distribution Width 12.7 % (11.0-16.0); White Blood Count 8.4 X10*3/uL (4.8-10.8)
[2023-03-02 16:37] LABS: Appearance Urine Clear; Color Urine Yellow; Glucose Urine UA Negative (Negative); Leukocyte Esterase Urine Negative (Negative); Nitrite Urine Negative (Negative); Urine Blood Negative (Negative); Urine Ketones Negative (Negative); Urine Protein Negative (Neg-Trace)
[2023-03-02 16:47] LABS: Alanine Aminotransferase 24 U/L (0-40); Albumin Level 4.2 g/dL (3.5-5.0); Alkaline Phosphatase 85 U/L (39-117); Anion Gap 11 (12-20); Aspartate Amino Transferase 23 U/L (5-37); Bilirubin Direct 0.1 mg/dL (0.0-0.5); Bilirubin Total 0.5 mg/dL (0.0-1.0); Blood Urea Nitrogen 14 mg/dL (9-16); Calcium 9.5 mg/dL (8.4-10.2); Carbon Dioxide 27 mmol/L (22-29); Chloride 110 mmol/L (96-108); Creatinine Clr Calc Pharmacy 64.8; Estimated Glomerular Filt Rate > 60; Glucose Random 87 mg/dL (60-115); Potassium 4.5 mmol/L (3.3-5.1); Sodium 143 mmol/L (135-145)
[2023-03-02 22:17] VITALS: BP 147/96; PULSE 97; RESP 17; O2SAT 100
--- NOTE | 2023-03-02 22:51 | PC.NURSE ---
Pt ca&ox3, ambulates with steady gait. Pt reports 9/10 right testicular pain for past 2 months. Provider with pt. Will continue to monitor.
== END 2023-03-02 23:16 | disposition home or self-care (01) ==
PROVIDERS: Nurse Practitioner Family; Emergency Provider Emergency Medicine; PCP Family Medicine
DX: N50.811 Right testicular pain (principal); R10.9 Unspecified abdominal pain; Z87.891 Personal history of nicotine dependence; Z79.899 Other long term (current) drug therapy
CPT/HCPCS: 36415; 74176; 80048; 80076; 81003; 85025; 99284

== ENCOUNTER 2023-03-08 17:56 | Outpatient (REF) | payer MEDICAID, SELFPAY ==
--- NOTE | ~2023-03-08 | MR_ITS ---
EXAMINATION: MR HIP WITHOUT CONTRAST, RIGHT CLINICAL INFORMATION: Pain in the right hip. COMPARISON: CT dated 03/02/2023. TECHNIQUE: MRI of the right hip was obtained using routine sequences on a high-field strength magnet. FINDINGS: BONES AND ARTICULAR CARTILAGE: There is yrok-ch-ppyndtie nonuniform chondral thinning at the right hip, most pronounced along the anterior aspect of the acetabular roof and anterior wall and at the anteromedial aspect of the femoral head. Small foci of subchondral edema signal and cystic change are present. Small marginal osteophytes. Degenerative changes are suspected in the right acetabular labrum, though not well seen on this large indam-og-nuzm study. Vqoh-rn-winrzdpv osteoarthritis is also evident in the left hip with a probable focal tear of the superolateral acetabular labrum. Chronic changes of avascular necrosis are evident at the left femoral head superiorly. No appreciable articular cortical collapse. Surrounding marrow at the femoral head and neck is normal in signal intensity without significant edema signal. Mild osteoarthritis is present in the SI joints. Pubic symphysis is unremarkable. No acute osseous abnormalities. No stress reactions. TENDONS AND MUSCLES: Mild gluteus minimus and gluteus medius tendinosis. No tears. Iliopsoas and hamstring tendons are intact. Musculature appears symmetric without significant fatty atrophy. Aponeurotic attachments at the pubic symphysis are intact. JOINT FLUID AND BURSAE: No effusions. There is mild bilateral trochanteric bursitis, right side greater than left. INTRAPELVIC SOFT TISSUES: No acute intrapelvic findings. No adenopathy. Small bilateral fat-containing inguinal hernias. NERVES: No appreciable sites of peripheral nerve impingement are identified. MR/MR hip RT wo con IMPRESSION: 1. 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 2. Mild bilateral trochanteric bursitis, right side greater than left. 3. Mild gluteus minimus and gluteus medius tendinosis. 4. Small bilateral fat-containing inguinal hernias. 5. Chronic avascular necrosis of the left femoral head without articular cortical collapse or acute marrow edema.
== END 2023-03-08 17:57 | disposition home or self-care (01) ==
LOC: HO.MRI 17:56
PROVIDERS: PCP Family Medicine; Visit Provider Physician Assistant
DX: M25.551 Pain in right hip (principal)
CPT/HCPCS: 73721

== ENCOUNTER 2023-03-21 06:00 | Outpatient (REF) | payer MEDICAID, SELFPAY ==
--- NOTE | ~2023-03-21 | FL_ITS ---
EXAMINATION: XR FLUOROSCOPY WITH IMAGES CLINICAL INFORMATION: Chronic pain syndrome. COMPARISON: None available. TECHNIQUE: Fluoroscopy Supervised By: Dr. Winston Boykin. Fluoroscopy Time: 0.1 minute. Cumulative Dose: 2.48 mGy. DAP: 0.0265 Gycm2. Images: 2. FINDINGS: Images demonstrate needle projecting over the upper lumbar spinal canal FL/FL guidance in treatment room IMPRESSION: Fluoroscopic guidance for pain management procedure.
== END 2023-03-21 06:01 | disposition home or self-care (01) ==
LOC: CF 06:00
PROVIDERS: Visit Provider Anesthesiology
DX: M48.062 Spinal stenosis, lumbar region with neurogenic claudication (principal); M48.061 Spinal stenosis, lumbar region without neurogenic claudication; M53.3 Sacrococcygeal disorders, not elsewhere classified; M54.16 Radiculopathy, lumbar region; M51.36 Other intervertebral disc degeneration, lumbar region; G89.4 Chronic pain syndrome
CPT/HCPCS: 62323; J3010

== ENCOUNTER 2023-03-22 12:42 | Outpatient (REF) | payer MEDICAID, SELFPAY ==
--- NOTE | ~2023-03-22 | US_ITS ---
EXAMINATION: US SCROTUM CLINICAL INFORMATION: Right testicular pain. COMPARISON: None available. TECHNIQUE: A sonogram of the scrotum was performed assessing randolph-scale appearance and color Doppler flow. Spectral Doppler analysis of the arterial and venous flow were performed in the testes bilaterally. FINDINGS: RIGHT: Right testicle measures 3.2 x 1.8 x 2.6 cm, volume 7.9 mL. No focal testicular parenchymal lesions are visualized. Spectral Doppler analysis of the arterial and venous flow is normal in the right testis. Right epididymal head is normal in size. There is simple 0.7 x 0.5 x 0.7 cm epididymal cyst on the right. No right hydrocele or varicocele is seen. Right epididymal Doppler flow is normal. LEFT: Left testicle measures 3.1 x 1.8 x 1.9 cm, volume 5.8 mL. No focal testicular parenchymal lesions are visualized. Spectral Doppler analysis of the arterial and venous flow is normal in the left testis. Bilateral appendix testes are visualized. Left epididymal head is normal in size. There is 0.3 x 0.2 x 0.3 cm simple cyst in the epididymal head on the left There is mild hydrocele seen bilaterally but no varicocele is seen. Left epididymal Doppler flow is increased. US/US scrotum IMPRESSION: Bilateral epididymal simple cysts. Normal vascular flow in both testes. No no visualized masses. Small bilateral hydrocele but no varicocele.
== END 2023-03-22 12:43 | disposition home or self-care (01) ==
LOC: HO.US 12:42
PROVIDERS: PCP Family Medicine; Visit Provider Student in an Organized Health Care Education/Training Program
DX: N50.811 Right testicular pain (principal)
CPT/HCPCS: 76870

== ENCOUNTER 2023-03-26 10:49 | Outpatient (REF) | payer MEDICAID, SELFPAY | END 2023-03-26 10:50 | disposition home or self-care (01) | LOC: HO.HOSX 10:49 | PROVIDERS: Visit Provider Orthopaedic Surgery | DX: Z13.89 Encounter for screening for other disorder (principal) ==

== ENCOUNTER 2023-03-27 | Outpatient (REF) | payer MEDICAID, SELFPAY ==
--- NOTE | ~2023-03-27 | XR_ITS ---
EXAMINATION: XR PELVIS XR HIP, RIGHT CLINICAL INFORMATION: Pain. COMPARISON: 02/27/2023 and 02/08/2023 TECHNIQUE: AP film of the pelvis and cross-table lateral view of the right hip. FINDINGS: PELVIS: There is no evidence of acute fracture or diastasis of the pelvis. Sacroiliac joints appear unremarkable. There is some mild sclerosis seen involving the facet joints at L5-S1. The hip joint spaces are maintained. There is a mixed lytic and sclerotic lesion within the left femoral head without femoral head collapse consistent with avascular necrosis without significant change. RIGHT HIP: There is no evidence of acute fracture or dislocation of the right hip. Right hip joint space appears maintained. Minimal spurring is seen about the hip joint. No abnormal lytic or sclerotic lesion is seen. Prominent vascular calcifications are present. XR/XR pelvis 1-2V IMPRESSION: Avascular necrosis of the left femoral head without significant change. No significant right hip joint abnormality appreciated.
--- NOTE | ~2023-03-27 | XR_ITS ---
EXAMINATION: XR PELVIS XR HIP, RIGHT CLINICAL INFORMATION: Pain. COMPARISON: 02/27/2023 and 02/08/2023 TECHNIQUE: AP film of the pelvis and cross-table lateral view of the right hip. FINDINGS: PELVIS: There is no evidence of acute fracture or diastasis of the pelvis. Sacroiliac joints appear unremarkable. There is some mild sclerosis seen involving the facet joints at L5-S1. The hip joint spaces are maintained. There is a mixed lytic and sclerotic lesion within the left femoral head without femoral head collapse consistent with avascular necrosis without significant change. RIGHT HIP: There is no evidence of acute fracture or dislocation of the right hip. Right hip joint space appears maintained. Minimal spurring is seen about the hip joint. No abnormal lytic or sclerotic lesion is seen. Prominent vascular calcifications are present. XR/XR hip RT 1V IMPRESSION: Avascular necrosis of the left femoral head without significant change. No significant right hip joint abnormality appreciated.
== END 2023-03-27 00:01 | disposition home or self-care (01) ==
LOC: HO.HOSX
PROVIDERS: Visit Provider Orthopaedic Surgery
DX: M48.062 Spinal stenosis, lumbar region with neurogenic claudication (principal); M87.052 Idiopathic aseptic necrosis of left femur
CPT/HCPCS: 72170; 73501; 73502; 99212

== ENCOUNTER → 2023-03-29 10:47 | Outpatient (BNVA) | payer MEDICAID, SELFPAY | PROVIDERS: PCP Family Medicine; Visit Provider Nurse Practitioner Family | DX: N50.811 Right testicular pain (principal); R10.30 Lower abdominal pain, unspecified; N28.1 Cyst of kidney, acquired | CPT/HCPCS: 99202 ==

== ENCOUNTER 2023-04-12 17:02 | Outpatient (REF) | payer MEDICAID, SELFPAY | END 2023-04-12 17:03 | disposition home or self-care (01) | LOC: HO.MRI 17:02 | PROVIDERS: PCP Family Medicine; Visit Provider Orthopaedic Surgery | DX: M48.062 Spinal stenosis, lumbar region with neurogenic claudication (principal) | CPT/HCPCS: 72148 ==

== ENCOUNTER 2023-04-24 08:39 | Outpatient (AMB) | payer MEDICAID, SELFPAY ==
--- NOTE | 2023-04-24 08:42 | MHC.OFFVIS ---
Intake Vital Signs 04/24/23 08:50 Height 5 ft 3 in Weight 171 lb 4.787 oz BMI 30.3 BP 102/72 Blood Pressure Location Rt brachial Position Sitting Pulse 86 Pulse Source Pulse Oximeter Intake Visit Reasons: f/u hypothyroidism Intake Note: Patient present for Hypothyroidism follow up visit. Tipple Boss Required: Yes Tipple Boss Language: Atmospheric Sciences Professor Name: Alisha, Medical Staff Information Interpreted: non-clinical & clinical Accompanied by: Self / Same As Patient Allergies No Known Allergies [No Known Allergies*] Allergy (Verified 04/24/23 08:52) Medication List - Last Reconciled 04/24/23 by Kannan Humphrey MD albuterol sulfate 90 mcg/actuation (ProAir HFA) 2 puffs inhalation Q6H PRN amitriptyline 50 mg PO BEDTIME amlodipine 1 tab PO DAILY atorvastatin 80 mg PO BEDTIME bumetanide 1 mg PO DAILY 30 days buspirone 15 mg PO BID cholecalciferol (vitamin D3) 50 mcg PO DAILY epinephrine IM DIRECTED escitalopram oxalate 20 mg PO DAILY etanercept (Enbrel SureClick) 50 mg subcut QWEEK fluticasone propion-salmeterol 250-50 mcg/dose (Advair Diskus) 1 ea PO BID fluticasone propionate 50 mcg/actuation 1 spray intranasal DAILY levothyroxine 88 mcg PO DAILY lidocaine 5% (Lidoderm) 0 patches topical loratadine 10 mg PO DAILY naloxone 4 mg/actuation 1 spray intranasal Q2M PRN omeprazole 40 mg PO DAILY HPI HPI Comments History of Present Illness Details 58 YO M with who is seen in consultation at the request of his PCP for Hyothyroidism. First diagnosed with Hypothyroidism 1 1/2 yrs ago . Never saw endo ]. Currently using 88 ug of levothyroxine . On 88 ug for 3mos . Takes every day on empty stomach with other meds Denies + fatigue, +weight gain, -cold intolerance,+ dry skin,- hair loss, +constipation. There is hx of hyperlipidemia . ? obstructive sx of goiter . Denies consuming any kelp or seaweed. Denies taking amiodarone. Biotin: No Family hx of thyroid dx:No Labs: c/o facial swelling and pain. Saw neurology [facility] Medical History (Updated 03/29/23 @ 22:14 by Juli Han, [employer]IV[employer]BC) Asthma Avascular necrosis Chronic pain Chronic pain syndrome Degeneration, intervertebral disc, cervical Depression Dysphagia Fatty liver HTN (hypertension) Hx of chest pain Hypothyroid Kidney cysts Lipoma of scalp Mood disorder DAYNA on CPAP Pre-diabetes Psoriasis Psoriatic arthritis Schatzki's ring 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 Spondylosis, cervical Surgical History H/O neck surgery History of back surgery History of colonoscopy History of surgery Hx of cardiac cath Hx of endoscopy Hx of hand surgery Status post cardiac catheterization Status post excision of lipoma (~10/21/21) Family History Father Cirrhosis Alcoholism Mother Diabetes HTN (hypertension) Parkinson disease Brother Cirrhosis Alcoholism Social History Household Members: Spouse and Children Are you a primary healthcare customer service to a significant other at home: No Do you presently have visiting nurse or other home services: No Alcohol intake: never Patient Tobacco Use Status: Former Tobacco user Tobacco use type: Cigarette Second Hand Smoke Exposure: No Current occupational status: disabled Current occupation: rt handed Physical Exam Vital Signs: BMI result Body Mass Index 30.3 HEENT reveals absence of lid lag , stare or proptosis or eyebrow loss. Thyroid gland measure 15 gms . No nodules or tenderness palpated. There is no cervical adenopathy palpated. Lungs CTA. Heart S1, S2 Reg R/R -M/R/G. Abdominal exam benign. Skin exam reveals absence of dryness or thyroid dermopathy or vitiligo. Nail exam reveals absence of thyroid acropachy or oncholysis. Neurologic exam reveals 2+ reflexes . Muscle Strength is 5/5 proximally. There are no tremors in upper extremities. Assessment & Plan Assessment & Plan (1) Hypothyroid: Code(s): E03.9 - Hypothyroidism, unspecified Plan: This is a 57-year-old male with a history of hypothyroidism being treated with 88 mcg levothyroxine. He appears clinically and biochemically euthyroid Plan is to continue current regimen. Will recheck TSH and free T4. Assuming above is normal, At This point, patient can follow up with primary care provider and follow-up with endocrinology as needed. He was told to follow up with his primary care provider regarding his other symptoms Orders: Orders Free T4 (Free Thyroxine) Today E03.9 - Hypothyroidism, unspecified Thyroid Stimulating Hormone Today E03.9 - Hypothyroidism, unspecified Coding Level of Care Code Est Pt Level 3 (13785) Diagnoses Hypothyroid E03.9
[2023-04-24 08:50] VITALS: BP 102/72; PULSE 86; BMI 30.3
== END 2023-04-24 09:08 | disposition home or self-care (01) ==
PROVIDERS: PCP Family Medicine; Visit Provider Internal Medicine Endocrinology, Diabetes & Metabolism
DX: E03.9 Hypothyroidism, unspecified (principal)
CPT/HCPCS: 99213

== ENCOUNTER → 2023-04-24 08:39 | Outpatient (BNVA) | payer MEDICAID, SELFPAY | PROVIDERS: Visit Provider Internal Medicine Endocrinology, Diabetes & Metabolism | DX: E03.9 Hypothyroidism, unspecified (principal); I10 Essential (primary) hypertension; R13.10 Dysphagia, unspecified; Z79.899 Other long term (current) drug therapy | CPT/HCPCS: 36415; 84439; 84443; 99212 ==

== ENCOUNTER 2023-04-24 09:15 | Outpatient (REF) | payer MEDICAID, SELFPAY ==
[2023-04-24 12:15] LABS: Free T4 (Free Thyroxine) 0.95 ng/dL (0.71-1.85); Thyroid Stimulating Hormone 3.22 uIU/mL (0.32-4.0)
== END 2023-04-24 09:16 | disposition home or self-care (01) ==
LOC: HO.10HDL 09:15
PROVIDERS: Visit Provider Internal Medicine Endocrinology, Diabetes & Metabolism
DX: E03.9 Hypothyroidism, unspecified (principal)
CPT/HCPCS: 36415; 84439; 84443

== ENCOUNTER 2023-05-08 09:03 | Outpatient (AMB) | payer MEDICAID, SELFPAY ==
[2023-05-08 09:07] VITALS: BMI 30.3
--- NOTE | 2023-05-08 09:07 | A.OFFVIS_ITS ---
Intake Vital Signs 05/08/23 09:07 Height 5 ft 3 in Weight 171 lb BMI 30.3 Intake Visit Reasons: NEUROGENIC CLAUDICATION DUE TO SPINAL STENOSIS Intake Note: Kvng is a 58year old male who presents today for a follow up appointment of his left hip avascular necrosis. MRI done of the lumber spine. Allergies No Known Allergies [No Known Allergies*] Allergy (Verified 05/08/23 09:10) HPI NEUROGENIC CLAUDICATION DUE TO SPINAL STENOSIS HPI Details Kvng is a 57 year old man who presents for a lumbar spine MRI review. He has severe left hip AVN. He was seen by Pain Management and had a Fentanyl intrathecal pump implanted on 03/21/23. His MRI and plain films showed stable left AVN without chondral collapse He continues to complain of lateral right leg numbness and tingling, extending down his lateral lower leg, right-sided lower back & buttocks pain. He denies any bowel or bladder dysfunction, and he feels he cannot function? [facility] Medical History Asthma Avascular necrosis Chronic pain Chronic pain syndrome Degeneration, intervertebral disc, cervical Depression Dysphagia Fatty liver HTN (hypertension) Hx of chest pain Hypothyroid Kidney cysts Lipoma of scalp Mood disorder DAYNA on CPAP Pre-diabetes Psoriasis Psoriatic arthritis Schatzki's ring 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 Spondylosis, cervical Surgical History H/O neck surgery History of back surgery History of colonoscopy History of surgery Hx of cardiac cath Hx of endoscopy Hx of hand surgery Status post cardiac catheterization Status post excision of lipoma (~10/21/21) Family History Father Cirrhosis Alcoholism Mother Diabetes HTN (hypertension) Parkinson disease Brother Cirrhosis Alcoholism Social History Household Members: Spouse and Children Are you a primary patient care associate to a significant other at home: No Do you presently have visiting nurse or other home services: No Alcohol intake: never Patient Tobacco Use Status: Former Tobacco user Tobacco use type: Cigarette Second Hand Smoke Exposure: No Current occupational status: disabled Current occupation: rt handed Review of Systems Const All systems reviewed & are unremarkable except as noted in HPI and below Physical Exam Vital Signs: BMI result Body Mass Index 30.3 Const General: no acute distress and alert Orientation/consciousness: patient oriented x3 Neuro General: patient oriented x3 Extrem Other: Bilateral Legs: 4+/5 LE strength - clonus Subjectively diminished sensation over anterolateral lower leg and lateral thigh Psych Appearance: grossly normal Affect: normal affect Attitude: cooperative Results Reviewed Results Reviewed: I personally reviewed relevant MR images & radiographs. 1. Stable mild anterolisthesis and moderate degenerative disc disease at the L5-S1 level with a small right paracentral disc extrusion mildly impressing upon the right S1 nerve root. Giluzlbn-to-wpewtq facet arthropathy without central canal stenosis or foraminal narrowing. ? 2. Lzzgbcsx-ix-gfejgf facet arthropathy and mild disc bulge at the L4-L5 level with mild foraminal narrowing, stable compared to prior imaging. 1. Fvol-qh-occnccyt osteoarthritis in both hips. ? 2. Mild bilateral trochanteric bursitis, right side greater than left. ? 3. Mild gluteus minimus and gluteus medius tendinosis. ? 4. Small bilateral fat-containing inguinal hernias. ? 5. Chronic avascular necrosis of the left femoral head without articular cortical collapse or acute marrow edema. Assessment & Plan Assessment & Plan (1) Disc degeneration, lumbar: Code(s): M51.36 - Other intervertebral disc degeneration, lumbar region Plan: This is a 57 year old man with lumbar radiculopathy. He primarily has lateral right leg numbness, tingling, and pain, extending down his lateral lower leg, and feels limited in his function. I recommend a referral to neurosurgery for lumbar radiculopathy. He also has some C-spine neck complaints, which I think would be best addressed by Neurosurgery. I explained the plan to him, and he is in agreement. (2) Neurogenic claudication due to lumbar spinal stenosis: Code(s): M48.062 - Spinal stenosis, lumbar region with neurogenic claudication (3) Avascular necrosis of bone of left hip: Code(s): M87.052 - Idiopathic aseptic necrosis of left femur Plan: Asymptomatic (4) Chronic pain syndrome: Code(s): G89.4 - Chronic pain syndrome Plan: Intrathecal Fentanyl pump implanted by Pain Management on 6/13/23. Plan Scribed for Mynor Dewitt MD by Hari Mccray, biomedical engineering supervisor, on 05/08/23 at 9:30 AM, EST. Orders: Referrals Neuro Spine Referral M48.062 - Spinal stenosis, lumbar region with neurogenic claudication, M51.36 - Other intervertebral disc degeneration, lumbar region Coding Level of Care Code Est Pt Level 4 (04116) Diagnoses Disc degeneration, lumbar M51.36 Neurogenic claudication due to lumbar spinal stenosis M48.062 Avascular necrosis of bone of left hip M87.052 Chronic pain syndrome G89.4
== END 2023-05-08 09:33 | disposition home or self-care (01) ==
PROVIDERS: PCP Family Medicine; Visit Provider Orthopaedic Surgery
DX: M51.36 Other intervertebral disc degeneration, lumbar region (principal); M48.062 Spinal stenosis, lumbar region with neurogenic claudication; M87.052 Idiopathic aseptic necrosis of left femur; G89.4 Chronic pain syndrome
CPT/HCPCS: 99213

== ENCOUNTER → 2023-05-08 09:03 | Outpatient (BNVA) | payer MEDICAID, SELFPAY | PROVIDERS: PCP Family Medicine; Visit Provider Orthopaedic Surgery ==

== ENCOUNTER 2023-05-15 12:09 | Outpatient (REF) | payer MEDICAID, SELFPAY ==
[2023-05-15 14:22] LABS: MANUAL DIFF FLAG NO
[2023-05-15 14:34] LABS: Basophils Percent Auto 0.4 % (0-2); Eosinophils Absolute Auto 0.2 X10*3/uL (0.0-0.4); Eosinophils Percent Auto 2.3 % (0-4); Hematocrit 45.7 % (42.0-52.0); Hemoglobin 15.2 g/dl (14.0-18.0); Imm Gran Abs Auto 0.02 X10*3/uL (0.00-0.03); Imm Gran Pct Auto 0.3 % (0.0-0.4); Lymphocytes Absolute Auto 3.2 X10*3/uL (1.2-4.9); Lymphocytes Percent Auto 46.1 % (20-40); Mean Corpuscular HGB Conc 33.3 g/dl (31.0-36.0); Mean Corpuscular Volume 93.3 fL (80.0-98.0); Monocytes Absolute Auto 0.4 X10*3/uL (0.1-1.2); Monocytes Percent Auto 6.3 % (2-11); Neutrophils Absolute Auto 3.1 x10*3/uL (2.0-8.3); Neutrophils Percent Auto 44.6 % (45-73); Platelet Count 294 X10*3/uL (160-400); Red Cell Distribution Width 13.5 % (11.0-16.0)
[2023-05-15 15:20] LABS: Estimated Average Glucose 117 mg/dL; Hemoglobin A1c % 5.7 %
[2023-05-15 15:26] LABS: Alanine Aminotransferase 21 U/L (0-40); Albumin Level 4.3 g/dL (3.5-5.0); Alkaline Phosphatase 89 U/L (39-117); Anion Gap 13 (12-20); Aspartate Amino Transferase 20 U/L (5-37); Bilirubin Total 0.2 mg/dL (0.0-1.0); Blood Urea Nitrogen 11 mg/dL (9-16); Calcium 9.2 mg/dL (8.4-10.2); Carbon Dioxide 26 mmol/L (22-29); Chloride 106 mmol/L (96-108); Estimated Glomerular Filt Rate > 60; Glucose Fasting 97 mg/dL (60-99); Magnesium 2.2 mg/dL (1.6-2.6); Potassium 3.6 mmol/L (3.3-5.1); Sodium 141 mmol/L (135-145); Total Protein 7.5 g/dL (6.5-8.0)
[2023-05-15 15:34] LABS: TSH reflex Free T4 2.18 uIU/mL (0.32-4.0)
== END 2023-05-15 12:10 | disposition home or self-care (01) ==
LOC: HO.CHCLDS 12:09
PROVIDERS: Visit Provider Family Medicine
DX: Z13.9 Encounter for screening, unspecified (principal)
CPT/HCPCS: 36415; 80053; 83036; 83735; 84443; 85025

== ENCOUNTER 2023-05-31 10:03 | Outpatient (REF) | payer MEDICAID, SELFPAY ==
[2023-05-31 13:14] LABS: MANUAL DIFF FLAG NO
[2023-05-31 13:26] LABS: Basophils Percent Auto 0.5 % (0-2); Eosinophils Absolute Auto 0.3 X10*3/uL (0.0-0.4); Eosinophils Percent Auto 3.4 % (0-4); Hematocrit 44.6 % (42.0-52.0); Hemoglobin 14.5 g/dl (14.0-18.0); Imm Gran Abs Auto 0.03 X10*3/uL (0.00-0.03); Imm Gran Pct Auto 0.4 % (0.0-0.4); Lymphocytes Absolute Auto 4.1 X10*3/uL (1.2-4.9); Lymphocytes Percent Auto 53.1 % (20-40); Mean Corpuscular HGB Conc 32.5 g/dl (31.0-36.0); Mean Corpuscular Hemoglobin 30.6 pg (27.0-33.0); Mean Corpuscular Volume 94.1 fL (80.0-98.0); Mean Platelet Volume 9.4 fL (9.4-12.4); Monocytes Absolute Auto 0.5 X10*3/uL (0.1-1.2); Neutrophils Absolute Auto 2.8 x10*3/uL (2.0-8.3); Neutrophils Percent Auto 36.6 % (45-73); Platelet Count 321 X10*3/uL (160-400); Red Blood Count 4.74 X10*6/uL (4.60-5.80); Red Cell Distribution Width 13.8 % (11.0-16.0); White Blood Count 7.7 X10*3/uL (4.8-10.8)
[2023-05-31 14:06] LABS: Alanine Aminotransferase 19 U/L (0-40); Albumin Level 4.3 g/dL (3.5-5.0); Alkaline Phosphatase 82 U/L (39-117); Anion Gap 10 (12-20); Aspartate Amino Transferase 20 U/L (5-37); Bilirubin Total 0.7 mg/dL (0.0-1.0); Blood Urea Nitrogen 22 mg/dL (9-16); C Reactive Protein 0.19 mg/dL (< or = 0.50); Calcium 9.6 mg/dL (8.4-10.2); Carbon Dioxide 25 mmol/L (22-29); Chloride 110 mmol/L (96-108); Estimated Glomerular Filt Rate 58; Glucose Random 91 mg/dL (60-115); Potassium 4.7 mmol/L (3.3-5.1); Sodium 140 mmol/L (135-145); Total Protein 7.4 g/dL (6.5-8.0)
[2023-05-31 14:11] LABS: Erythrocyte Sedimentation Rate 2 MM/HR (0-15)
== END 2023-05-31 10:04 | disposition home or self-care (01) ==
LOC: HO.10HDL 10:03
PROVIDERS: Visit Provider Nurse Practitioner Family
DX: L40.50 Arthropathic psoriasis, unspecified (principal)
CPT/HCPCS: 36415; 80053; 85025; 85652; 86140

== ENCOUNTER 2023-06-06 11:35 | Outpatient (REF) | payer MEDICAID, SELFPAY ==
[2023-06-06 12:40] LABS: Prostate Specific Antigen 0.76 ng/mL (<0.05-4.0)
== END 2023-06-06 11:36 | disposition home or self-care (01) ==
LOC: HO.LAB 11:35
PROVIDERS: PCP Family Medicine; Visit Provider Nurse Practitioner Family
DX: N40.0 Benign prostatic hyperplasia without lower urinary tract symptoms (principal)
CPT/HCPCS: 36415; 84153

== ENCOUNTER 2023-06-07 09:59 | Outpatient (AMB) | payer MEDICAID, SELFPAY ==
--- NOTE | 2023-06-07 10:16 | MHC.OFFVIS ---
Intake Intake Visit Reasons: 2m/labs Intake Note: Patient is present for follow up labs/testicular pain (psa 0.76) Urology Medications: none Blood Thinner: none General Internist And Physician Leader Required: Yes General Internist And Physician Leader Name: EVERETT Accompanied by: Self / Same As Patient Allergies No Known Allergies [No Known Allergies*] Allergy (Verified 06/07/23 10:32) Medication List - Last Reconciled 06/07/23 by CARO Sanders- albuterol sulfate 90 mcg/actuation (ProAir HFA) 2 puffs inhalation Q6H PRN amitriptyline 50 mg PO BEDTIME amlodipine 1 tab PO DAILY atorvastatin 80 mg PO BEDTIME bumetanide 1 mg PO DAILY 30 days buspirone 15 mg PO BID cholecalciferol (vitamin D3) 50 mcg PO DAILY epinephrine IM DIRECTED escitalopram oxalate 20 mg PO DAILY etanercept (Enbrel SureClick) 50 mg subcut QWEEK fluticasone propion-salmeterol 250-50 mcg/dose (Advair Diskus) 1 ea PO BID fluticasone propionate 50 mcg/actuation 1 spray intranasal DAILY levothyroxine 88 mcg PO DAILY lidocaine 5% (Lidoderm) 0 patches topical loratadine 10 mg PO DAILY naloxone 4 mg/actuation 1 spray intranasal Q2M PRN omeprazole 40 mg PO DAILY tramadol 50 mg PO Q8H PRN HPI HPI Comments History of Present Illness Details Kvng is a very pleasant 58-year-old Lao-speaking male patient of Dr. Vu. He has a past medical history of asthma, chronic pain, fibromyalgia, degenerative disc disease, depression, fatty liver, hypertension, hypothyroidism, kidney cysts, mood disorder, DAYNA on CPAP, pre diabetes,and psoriasis. He presents to the office today for a follow up. Of note patient was seen approximately 2 months ago as a new patient for right-sided testicular pain at which time he reported had since subsided. A PSA was obtained for further assessment evaluation. These results were reviewed with the patient today. 05/31--0.8. In discussion with the patient today reports to be doing and feeling well. He denies any scrotal/testicular pain. He reports pain had since subsided over 3 months ago. He discusses his ongoing lower back pain issues. He otherwise denies any urinary issues or concerns at this time. He denies urinary urgency, urinary frequency, incontinence, nocturia, hematuria, dysuria, foul smelling urine, changes to urinary stream, flank pain, fever, and or chills. He is happy with his current voiding parameters. In office urinalysis results reviewed with the patient today. He otherwise denies any other issues or concerns. [facility] Medical History Asthma Avascular necrosis Chronic pain Chronic pain syndrome Degeneration, intervertebral disc, cervical Depression Dysphagia Fatty liver HTN (hypertension) Hx of chest pain Hypothyroid Kidney cysts Lipoma of scalp Mood disorder DAYNA on CPAP Pre-diabetes Psoriasis Psoriatic arthritis Schatzki's ring 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 Spondylosis, cervical Surgical History H/O neck surgery History of back surgery History of colonoscopy History of surgery Hx of cardiac cath Hx of endoscopy Hx of hand surgery Status post cardiac catheterization Status post excision of lipoma (~10/21/21) Family History Father Cirrhosis Alcoholism Mother Diabetes HTN (hypertension) Parkinson disease Brother Cirrhosis Alcoholism Social History Household Members: Spouse and Children Are you a primary career education teacher to a significant other at home: No Do you presently have visiting nurse or other home services: No Alcohol intake: never Patient Tobacco Use Status: Former Tobacco user Tobacco use type: Cigarette Second Hand Smoke Exposure: No Current occupational status: disabled Current occupation: rt handed Review of Systems Const All systems reviewed & are unremarkable except as noted in HPI and below Reports as per HPI Eyes Reports no additional complaints ENT Reports no additional complaints Card Reports as per HPI Resp Reports as per HPI GI Reports as per HPI Reports as per HPI Musc Reports as per HPI Neuro Reports as per HPI Endo Reports as per HPI Physical Exam Const General: cooperative, healthy appearing, comfortable, no acute distress, well developed, alert and awake Orientation/consciousness: patient oriented x3 Limitations: no limitations HEENT Head: Yes normal to inspection, Yes normocephalic and Yes atraumatic Ears: hearing grossly normal bilaterally Eyes General: appearance normal, both eyes and all related structures Neck Neck: Yes normal visual inspection and Yes trachea midline Chest Chest palpation & inspection: normal inspection of the chest Resp Effort & Inspection: normal respiratory effort and able to speak in complete sentences Cardio Rate: regular rate GI Inspection: Yes normal to inspection General: Yes no CVA tenderness Back/Spine/Pelvis Back: no CVA tenderness Skin General skin exam: no rashes or lesions noted Neuro General: patient oriented x3 Extrem General: Yes normal to inspection Psych Appearance: grossly normal and well kempt Mental Status: mental status grossly normal Speech and movement: Normal speech and movement present and Clear speech present Affect: normal affect Attitude: cooperative Thought process: Normal thought process present Thought content: Normal thought content present Insight: Fair insight present (Psych) Judgement: Fair judgement present (Psych) Results AMB Urinalysis, Automated UA Leukoctes 0 Randy/uL Last Edit by [employer] on 06/07/23 10:24 UA Nitrite Last Edit by [employer] on 06/07/23 10:24 UA Urobilinogen 0.2 mg/dL Last Edit by [employer] on 06/07/23 10:24 UA Protein 0 mg/dL Last Edit by [employer] on 06/07/23 10:24 UA pH 6.5 Last Edit by [employer] on 06/07/23 10:24 UA Blood 0 Amaury/uL Last Edit by [employer] on 06/07/23 10:24 UA Specific [place] 1.015 Last Edit by [employer] on 06/07/23 10:24 UA Ketone Negative Last Edit by [employer] on 06/07/23 10:24 UA Bilirubin 0 mg/dL Last Edit by [employer] on 06/07/23 10:24 UA Glucose 0 mg/dL Last Edit by [employer] on 06/07/23 10:24 Results Reviewed Results Reviewed: Laboratory Last Values Urine pH (Auto) 6.5 06/07/23 10:20 Specific [place] (Auto) 1.015 06/07/23 10:20 Urine Protein (Auto) 0 mg/dL 06/07/23 10:20 Glucose (UA)(Auto) 0 mg/dL 06/07/23 10:20 Urine Ketones (Auto) Negative 06/07/23 10:20 Urine Blood (Auto) 0 Amaury/uL 06/07/23 10:20 Urine Bilirubin (Auto) 0 mg/dL 06/07/23 10:20 Urine Urobilinogen (Auto) 0.2 mg/dL 06/07/23 10:20 Leukocyte Esterase (Auto) 0 Randy/uL 06/07/23 10:20 Assessment & Plan Assessment & Plan (1) Kidney cysts: Code(s): N28.1 - Cyst of kidney, acquired Plan In office urinalysis results reviewed with the patient today; as noted above. Patient denies any urological issues or concerns at this time. Recent PSA results reviewed with the patient today; as noted above. He is happy with his current voiding paramters. Will obtain renal imaging in 1 year for longstanding history of renal cysts. Will obtain PSA in one year Follow-up in 1 year; or sooner with any issues, concerns, or questions. Orders: Orders Prostate Specific Antigen 364 Days N40.0 - Benign prostatic hyperplasia without lower urinary tract symptoms US renal BI 364 Days N28.1 - Cyst of kidney, acquired AMB Urinalysis Automated Today Z13.9 - Encounter for screening, unspecified Patient Instructions: The patient had an opportunity to ask questions regarding the treatment plan. All questions were answered. Physical exam, labs, and imaging were discussed and reviewed in detail. As well as risks, benefits, and discussion of treatment choices. No major barriers to understanding were identified. The patient expressed understanding and agreement with the above treatment plan. The patient was made aware they should contact our office by phone for worsening of their current condition, the appearance of new symptoms, or with any questions or concerns. Compliance is encouraged with any medications and follow up testing that is ordered. It is a privilege to be allowed the opportunity to participate in? your urological care.? Again, if you have any questions or concerns If you have any questions or concerns please do not hesitate to contact me. The office is [phone]. This note is constructed using voice recognition software. While every effort has been made to ensure accuracy award clerk errors may have been included. Yours sincerely, ROWENA Sanders Coding Level of Care Code Est Pt Level 3 (52727) Diagnoses Kidney cysts N28.1
== END 2023-06-07 11:01 | disposition home or self-care (01) ==
PROVIDERS: PCP Family Medicine; Visit Provider Nurse Practitioner Family
DX: Z13.9 Encounter for screening, unspecified (principal); N28.1 Cyst of kidney, acquired

== ENCOUNTER → 2023-06-07 09:59 | Outpatient (BNVA) | payer MEDICAID, SELFPAY | PROVIDERS: PCP Family Medicine; Visit Provider Nurse Practitioner Family | DX: N28.1 Cyst of kidney, acquired (principal) | CPT/HCPCS: 81003; 99212; 99213 ==

== ENCOUNTER 2023-06-15 09:47 | Outpatient (AMB) | payer MEDICAID, SELFPAY ==
--- NOTE | 2023-06-15 10:15 | A.OFFVIS_ITS ---
Intake Vital Signs 06/15/23 10:22 Height 5 ft 3 in Weight 166 lb 14.239 oz BMI 29.6 BP 124/72 Blood Pressure Location Lt brachial Position Sitting Pulse 67 Pulse Source Pulse Oximeter Temp 97.7 F Temp Source Skin Pulse Oximetry (%) 97 Oxygen Delivery Method Room Air Intake Visit Reasons: psoriatic arthritis Intake Note: Patient here for PsA follow up. c/o increased pains. New script for Lyrica started, awaiting PA. Unsure on dose. Cellular Tower Climber Required: Yes Cellular Tower Climber Language: Rocket Motor Tester Name: Liliya [id number] Information Interpreted: clinical only Accompanied by: Self / Same As Patient Allergies No Known Allergies [No Known Allergies*] Allergy (Verified 06/15/23 10:22) Medication List - Last Reconciled 06/15/23 by Codey Jung MD albuterol sulfate 90 mcg/actuation (ProAir HFA) 2 puffs inhalation Q6H PRN amitriptyline 50 mg PO BEDTIME amlodipine 1 tab PO DAILY atorvastatin 80 mg PO BEDTIME bumetanide 1 mg PO DAILY 30 days buspirone 15 mg PO BID cholecalciferol (vitamin D3) 50 mcg PO DAILY epinephrine IM DIRECTED escitalopram oxalate 20 mg PO DAILY etanercept (Enbrel SureClick) 50 mg subcut QWEEK fluticasone propion-salmeterol 250-50 mcg/dose (Advair Diskus) 1 ea PO BID fluticasone propionate 50 mcg/actuation 1 spray intranasal DAILY ibuprofen 600 mg PO TID levothyroxine 88 mcg PO DAILY lidocaine 5% (Lidoderm) 0 patches topical loratadine 10 mg PO DAILY omeprazole 40 mg PO DAILY HPI HPI Comments History of Present Illness Details The patient returns to Rheumatology for evaluation of his psoriatic arthritis and fibromyalgia. The visit is facilitated through the gauzzd translating device. He also is followed in Pain Management for lumbar osteoarthritis and has received various procedures and injections for that problem. He remains on Enbrel 50 mg once a week. There has been no evidence for recently of psoriatic lesions on the skin. His overall widespread pains in muscles, bones and joints continues about the same. He has not really seen any swollen joints. He does take ibuprofen 600 mg 3 times a day, daily lidocaine patch, and nighttime amitriptyline. These meds are somewhat helpful. He denies any side effects with his medication. For anxiety and depression he remains on BuSpar and escitalopram, [facility] Medical History Asthma Avascular necrosis Chronic pain Chronic pain syndrome Degeneration, intervertebral disc, cervical Depression Dysphagia Fatty liver HTN (hypertension) Hx of chest pain Hypothyroid Kidney cysts Lipoma of scalp Mood disorder DAYNA on CPAP Pre-diabetes Psoriasis Psoriatic arthritis Schatzki's ring 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 Spondylosis, cervical Surgical History History of back surgery History of surgery Status post excision of lipoma (~10/21/21) Status post cardiac catheterization Hx of cardiac cath H/O neck surgery Hx of hand surgery Hx of endoscopy History of colonoscopy Family History Father Cirrhosis Alcoholism Mother Diabetes HTN (hypertension) Parkinson disease Brother Cirrhosis Alcoholism Social History Household Members: Spouse and Children Are you a primary career development counselor to a significant other at home: No Do you presently have visiting nurse or other home services: No Alcohol intake: never Patient Tobacco Use Status: Former Tobacco user Tobacco use type: Cigarette Second Hand Smoke Exposure: No Current occupational status: disabled Current occupation: rt handed Review of Systems Const Details: Low energy. He says he cannot really walk or exercise much because of his back pain. Negative for appetite change, weight change, fever, chills, malaise Eyes Details: Negative for vision change, dry eyes,headaches and dizziness Card Details: Negative chest pain, edema and syncope Resp Details: Negative for SOB, cough and wheezing GI Details: Negative indigestion/heartburn, nausea, abdominal pain, bowel changes, diarrhea, constipation and bloody stool. Details: Negative for dysuria, hematuria, nocturia, decreased force/flow and genital discharge Skin/Breast Details: Negative for itching, rash, hives, Raynaud's symptoms, sun sensitivity, and skin cancer Psych Details: anxiety and depression stable with current treatment. Daniel/Lymph Details: Negative for excessive bruising or bleeding. Physical Exam Vital Signs: Last Vital Signs Temp 97.7 F 06/15/23 10:22 Pulse 67 06/15/23 10:22 BP 124/72 06/15/23 10:22 Pulse Ox 97 06/15/23 10:22 Oxygen Delivery Method Room Air 06/15/23 10:22 BMI result Body Mass Index 29.6 APPEARANCE: Patient in no acute distress EYES: no redness, pupils equal and reactive to light, eyelids normal. No temporal artery tenderness, redness or swelling. EXTREMITIES: No edema, no calf tenderness, normal peripheral pulses. NEURO: Oriented and alert x3. No focal weakness. Uses cane. SKIN: Ridging of nail noted right thumb (hx of crush injusry to this hand). No inflammatory or neoplastic lesions. Normal color and turgor JOINT EXAM: Cervical Spine:? Pain reported with flexion, extension, left rotation, right rotation, right lateral flexion and left lateral flexion. Also tenderness reported to palpation of the cervical spine. Widespread diffuse pain to palpation throughout. Thoracic Spine: Diffuse tenderness to palpation throughout Lumbar Spine:? Alignment normal.? Full range of motion, able to fully flex with pain. Tenderness to palpation of the lumbar spine and lumbar spinal muscles. Widespread diffuse tenderness to palpation throughout the spine. Hands: Normal pain-free range of motion. There is some minimal slightly tender bony enlargement at the 2nd, 3rd and 5th D IP joints bilaterally. No other swelling, increased warmth or erythema. Able to make a full fist and has a good pet trainer strength. Widespread diffuse tenderness to palpation throughout the hands. Wrists: LEFT: Normal pain-free range of motion without swelling, increased warmth or erythema. Widespread diffuse tenderness to palpation throughout. RIGHT: Slightly limited flexion and extension (chronic per patient report after injury to the right wrist hand in 1994). No swelling increased warmth or erythema. Widespread diffuse tenderness to palpation throughout. Elbows: Normal pain-free range of motion without tenderness, swelling, increased warmth or erythema. Widespread diffuse tenderness to palpation over the biceps and down both forearms. Shoulders:? Full range of motion. No weakness, swelling, increased warmth or erythema. Widespread diffuse pain to palpation. Hips:? Full range of motion, slight pain with abduction bilaterally, pain is reported in the groin. Hip bursa:? No tenderness. Knees:?? Normal pain-free range of motion. No swelling, increased warmth or erythema.? There is slight patellofemoral crepitus but no effusion appreciated. Bilateral medial and lateral compartment tenderness. Widespread diffuse pain to palpation down both shins. Ankles: Normal pain-free range of motion without tenderness, swelling, increased warmth or erythema. Feet: Normal range of motion without swelling, increased warmth or erythema. Widespread diffuse tenderness to palpation throughout both feet. Tender points: Tenderness to digital palpation at the occiput, trapezius, second rib, lateral epicondyle, knees, greater trochanter and gluteal area bilaterally. ? Results Reviewed Results Reviewed: [facility] [address] [place] [address] [address] [place] [address] XRay Report Signed Patient: Kvng Ramon MR#: [id number] : 1965 Acct:[id number] Age/Sex: 57 / M ADM Date: 03/27/[address]: Mynor Dewitt MD Ordering Physician: Mynor Dewitt MD Date of Service: 03/27/23 Procedure(s): XR hip RT 1V Accession Number(s): [id number] cc: yMnor Dewitt MD~ EXAMINATION: XR PELVIS XR HIP, RIGHT CLINICAL INFORMATION: Pain. COMPARISON: 02/27/2023 and 02/08/2023 TECHNIQUE: AP film of the pelvis and cross-table lateral view of the right hip. FINDINGS: PELVIS: There is no evidence of acute fracture or diastasis of the pelvis. Sacroiliac joints appear unremarkable. There is some mild sclerosis seen involving the facet joints at L5-S1. The hip joint spaces are maintained. There is a mixed lytic and sclerotic lesion within the left femoral head without femoral head collapse consistent with avascular necrosis without significant change. RIGHT HIP: There is no evidence of acute fracture or dislocation of the right hip. Right hip joint space appears maintained. Minimal spurring is seen about the hip joint. No abnormal lytic or sclerotic lesion is seen. Prominent vascular calcifications are present. XR/XR hip RT 1V IMPRESSION: Avascular necrosis of the left femoral head without significant change. No significant right hip joint abnormality appreciated. Dictated By: Luciano Pruett MD Assessment & Plan Assessment & Plan (1) Psoriasis: Code(s): L40.9 - Psoriasis, unspecified (2) Spondylosis of lumbar region without myelopathy or radiculopathy: Code(s): M47.816 - Spondylosis without myelopathy or radiculopathy, lumbar region (3) Fibromyalgia: Code(s): M79.7 - Fibromyalgia (4) Psoriatic arthritis: Comment: Methotrexate: dates unknown Enbrel: 06/2019-present Code(s): L40.50 - Arthropathic psoriasis, unspecified Plan The patient has longstanding musculoskeletal pains. The exam does not reveal signs of an active inflammatory arthritis from his psoriatic arthritis. Also I do not see any signs of psoriasis presently so the Enbrel seems to be helping him. His more problematic area in the lower back is consistent with some lumbar osteoarthritis. There is some minimal change of osteoarthritis in the fingers on exam. He has some abnormality in the right hip consistent with healing avascular necrosis. With the many tender points also his pain syndrome is consistent with fibromyalgia. I do not have additional medications to suggest for him presently. He should stay on the Enbrel and we would recheck him in 6 months. A Coding Level of Care Code Est Pt Level 3 (33636) Diagnoses Psoriasis L40.9 Spondylosis of lumbar region without myelopathy or radiculopathy M47.816 Fibromyalgia M79.7 Psoriatic arthritis L40.50
[2023-06-15 10:22] VITALS: BP 124/72; PULSE 67; TEMP 36.5; O2SAT 97; BMI 29.6
== END 2023-06-15 10:48 | disposition home or self-care (01) ==
PROVIDERS: PCP Family Medicine; Visit Provider Internal Medicine Rheumatology
DX: L40.9 Psoriasis, unspecified (principal); M47.816 Spondylosis without myelopathy or radiculopathy, lumbar region; M79.7 Fibromyalgia; L40.50 Arthropathic psoriasis, unspecified
CPT/HCPCS: 99213

== ENCOUNTER → 2023-06-15 09:47 | Outpatient (BNVA) | payer MEDICAID, SELFPAY | PROVIDERS: PCP Family Medicine; Visit Provider Internal Medicine Rheumatology | DX: L40.50 Arthropathic psoriasis, unspecified (principal); M47.816 Spondylosis without myelopathy or radiculopathy, lumbar region; M79.7 Fibromyalgia | CPT/HCPCS: 99212 ==

== ENCOUNTER 2023-06-16 11:08 | Outpatient (AMB) | payer MEDICAID, SELFPAY ==
--- NOTE | 2023-06-16 11:58 | A.SPINEOV_ITS ---
Intake Intake Visit Reasons: Low back pain Intake Note: Mr. Church is here today c/o low back pain. [place] [facility] Allergies No Known Allergies [No Known Allergies*] Allergy (Verified 06/15/23 10:22) Assessment & Plan Assessment & Plan (1) Lumbar radiculopathy: Code(s): M54.16 - Radiculopathy, lumbar region Plan Dear Dr. Dewitt, Thank you for referring Kvng to our office today. Kvng is a pleasant 58-year-old male who comes in with a chief complaint of low back pain with radiation of pain/burning down his right lower extremity terminating before the foot. The exact radiation of this pain was difficult to assess, even with the assistance of japanese interpreter services. At 1st he described as a pain that radiates down the right lateral side of his leg terminating before the foot, but then when asked again later during the session he described the pain and radiation of symptoms as a posterior/medial pain radiating down the back side of his leg. He also endorsed hip pain and groin pain. He states that he has had low back pain for 25+ years, but most recently began experiencing burning and pain in his leg in the last 2 years. He reports no inciting incident for this leg pain, and states that its severity has stayed relatively the same for the last 2 years. He is followed by pain management clinic at [facility] and has had several different types of injections/decompressions with minimal relief per his report. He also has been to physical therapy, and tried several different [id number] solut ions such as ibuprofen, tylenol, pain patches, ice, and heat which he states did not resolve / relieve this issue. PMH: Avascular necrosis of the femoral head, Asthma, depression, high blood pressure, hyperlipidemia, GERD, seasonal allergies, hypothyroidism, chronic low back pain. Social hx: Patient does not smoke, endorses no substance use. Medications: Albuterol, amitriptyline, amlodipine, atorvastatin, bumetanide, buspirone, vitamin D3, escitalopram, enteracept, fluticasone, ibuprofen, lidocaine patch, levothyroxine, loratadine, omeprazole. Allergies: NKDA. Physical exam: Mobility: Patient ambulates with cane. He is able to rise from seated position without assistance. Sensation: Grossly intact. CN: II-XII grossly intact. Strength Testing Upper Extremities: - Deltoid 5/5 right 5/5 left - Biceps 5/5 right 5/5 left - Triceps 5/5 right 5/5 left - Wrist Ext 5/5 right 5/5 left - Wrist Flex 5/5 right 5/5 left - Hand air export coordinator 5/5 right 5/5 left - Interossei 5/5 right 5/5 left Strength Testing Lower Extremities: - Hip flexion 5/5 right 5/5 left - Knee extension 5/5 right 5/5 left - Dorsiflexion 5/5 right 5/5 left - Plantar flex 5/5 right 5/5 left - EHL 5/5 right 5/5 left Reflexes: - Biceps Right - 2+ Left - 2+ - Triceps Right - 2+ Left - 2+ - Patellar Right - 2+ Left - 2+ - Achilles Right - 2+ Left - 2+ - Plantar Right - 2+ Left - 2+ (+) Bilteral Gaenslen's (potentially confounded by Avascular necrosis of hip) (+) Bilateral Lucila's (potentially confounded by Avascular necrosis of hip) (-) Bilateral Straight leg raise (-) Shaffer?s sign (-) Clonus Imaging review: MRI from 04/12/2023 is generally unremarkable from a neurosurgical standpoint. He does have a slight L5-S1 right-sided disc bulge. Some facet arthropathy noted at L3-4. No significant central canal compression noted. Reviewed with SUMAN Sharma. Impression: The patient is a 58-year-old male who comes in with a chief complaint of chronic (25+ years) low back pain and newer onset radiation of pain/burning down the right lower extremity. He is currently being seen by both pain management and orthopedic for management of his low back pain and avascular necrosis of the femoral head. His MRI does not show any obvious surgical point of intervention that could relieve his symptoms given the severity of the symptoms that he discloses. At this time we recommend that he be treated for his avascular necrosis of the femoral head, and that he be potentially worked up for SI joint inflammation/degeneration given his physical exam findings. He would benefit from having an EMG completed if his pain is not significantly relieved after his orthopedics issues dealt with. Thank you for allowing us to care for your patient. The total time spent with this visit with this patient was 45 minutes reviewing history, physical exam, MRI lumbar spine imaging review, and implementation of treatment plan or further diagnostic testing. Todd Mathews MD,PhD [facility] Coding Level of Care Code New Pt Level 4 (32383) Diagnoses Lumbar radiculopathy M54.16
== END 2023-06-16 12:45 | disposition home or self-care (01) ==
PROVIDERS: PCP Family Medicine; Referring Provider Orthopaedic Surgery; Visit Provider Physician Assistant
DX: M54.16 Radiculopathy, lumbar region (principal)
CPT/HCPCS: 99204

== ENCOUNTER → 2023-06-16 11:08 | Outpatient (BNVA) | payer MEDICAID, SELFPAY | PROVIDERS: PCP Family Medicine; Referring Provider Orthopaedic Surgery; Visit Provider Physician Assistant | DX: M54.16 Radiculopathy, lumbar region (principal) | CPT/HCPCS: 99212 ==

== ENCOUNTER 2023-07-27 08:37 | Day surgery (SDC) | payer MEDICAID, SELFPAY ==
--- NOTE | 2023-07-26 14:13 | HO.ANESPROP2 ---
Documented by User: Sophy Styles NP 07/26/23 14:17 HPI - Anesthesia Eval Consult details Narrative: 58yo M for Upper Endo [place] PMFSH Active Problems Active Problems: All Active Problems (Updated 06/15/23 @ 13:25 by Codey Jung MD) Fibromyalgia (Acute) Kidney cysts (Acute) Testicle pain (Acute) Deep inguinal pain (Acute) Osteoarthritis of right hip (Acute) Dyspnea on exertion (Acute) Right hip pain (Acute) AVN of femur (Acute) Disc degeneration, lumbar (Acute) Epigastric abdominal pain (Acute) Right flank pain (Acute) Dysphagia (Acute) Hypothyroid (Acute) Neurogenic claudication due to lumbar spinal stenosis (Acute) Neurogenic claudication (Acute) Spinal stenosis at L4-L5 level (Acute) Sacroiliac joint pain (Acute) Vocal cord dysfunction (Acute) Lumbar radiculopathy (Acute) Disc degeneration, lumbar (Acute) Liver cyst (Acute) Orthopnea (Acute) Osteoarthritis of left hip (Acute) Dyspnea (Acute) Nonalcoholic steatohepatitis (CROSS) (Acute) Leg pain (Acute) Avascular necrosis of bone of left hip (Acute) Trochanteric bursitis of left hip (Acute) Trochanteric bursitis of right hip (Acute) Liver cyst (Acute) SOB (shortness of breath) (Acute) Back pain (Acute) Right sided numbness (Acute) Patellofemoral arthritis of right knee (Acute) DAYNA (obstructive sleep apnea) (Acute) Chest pain (Acute) Status post cardiac catheterization (Acute) Lipoma of scalp (Acute) Spondylosis of thoracic spine (Acute) Spondylosis of lumbar spine (Acute) Psoriasis (Acute) Psoriatic arthritis (Acute) Chronic pain syndrome (Acute) Spondylosis of lumbar region without myelopathy or radiculopathy (Acute) Spondylosis, cervical (Acute) Degeneration, intervertebral disc, cervical (Acute) Past Medical History Medical History Asthma Avascular necrosis Chronic pain Chronic pain syndrome Degeneration, intervertebral disc, cervical Depression Dysphagia Fatty liver HTN (hypertension) Hx of chest pain Hypothyroid Kidney cysts Lipoma of scalp Mood disorder DAYNA on CPAP Pre-diabetes Psoriasis Psoriatic arthritis Schatzki's ring 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 Spondylosis, cervical Family History Family History Father Cirrhosis Alcoholism Mother Diabetes HTN (hypertension) Parkinson disease Brother Cirrhosis Alcoholism Family history of problems with anesthesia: No Surgical History Surgical History History of back surgery History of surgery Status post excision of lipoma (~10/21/21) Status post cardiac catheterization Hx of cardiac cath H/O neck surgery Hx of hand surgery Hx of endoscopy History of colonoscopy History of Problems with Anesthesia: No Social History Social History Household Members: Spouse and Children Are you a primary healthcare network pricing consultant to a significant other at home: No Do you presently have visiting nurse or other home services: No Alcohol intake: never Patient Tobacco Use Status: Former Tobacco user Tobacco use type: Cigarette Second Hand Smoke Exposure: No Current occupational status: disabled Current occupation: rt handed Meds Allergies Allergy/AdvReac Type Severity Reaction Status Date / Time No Known Allergies Allergy Verified 07/27/23 09:18 [No Known Allergies*] Home Medications Medication Instructions Recorded Confirmed Last Taken Type albuterol sulfate 90 mcg/actuation 2 puff inhalation Q6H PRN Wheezing 08/10/20 06/15/23 Unknown History aerosol inhaler (ProAir HFA) escitalopram oxalate 20 mg tablet 20 mg PO DAILY 08/10/20 06/15/23 03/31/22 History fluticasone propionate 50 1 spray intranasal DAILY 08/10/20 06/15/23 Unknown History mcg/actuation nasal spray,suspension buspirone 15 mg tablet 15 mg PO BID 10/27/21 06/15/23 07/08/22 07:00 History amlodipine 5 mg tablet 1 tab PO DAILY 03/23/22 06/15/23 03/31/22 History amitriptyline 50 mg tablet 50 mg PO BEDTIME 08/05/22 06/15/23 Unknown History atorvastatin 80 mg tablet 80 mg PO BEDTIME 08/05/22 06/15/23 Unknown History cholecalciferol (vitamin D3) 50 50 mcg PO DAILY 08/05/22 06/15/23 Unknown History mcg (2,000 unit) tablet epinephrine 0.3 mg/0.3 mL IM DIRECTED 08/05/22 06/15/23 Unknown History injection, auto-injector lidocaine 5 % topical patch 0 patch topical 08/05/22 06/15/23 Unknown History (Lidoderm) ibuprofen 600 mg tablet 600 mg PO TID 06/09/23 06/15/23 Unknown History Exam Exam Date and Time: July 26, 2023 1413 Pertinent Lab Results Pertinent Lab Results: Laboratory Tests 05/31/23 10:10 WBC 7.7 Hgb 14.5 Hct 44.6 Plt Count 321 Sodium 140 Potassium 4.7 D Chloride 110 H Carbon Dioxide 25 BUN 22 H Creatinine 1.27 Narrative Narrative: ECHO 01/2023 Conclusions: - The left ventricular systolic function is normal. The calculated ejection fraction is 59% by biplane method. - No obvious valvular pathology seen on this study. Cardiac cath 2020 - all wnl Assessment and Plan Assessment Anesthesia Assessment: Chart Reviewed Final Anesthetic Review Family History of Problems with Anesthesia: No History of Problems with Anesthesia: No Documented by User: Kahlil Travis MD 07/27/23 18:12 HPI - Anesthesia Eval Consult details Narrative: 58yo M for Upper Endo [place] DAYNA , not tolerating CPAP well , has an upcoming appointment with pulmonary . [facility] Past Medical History Medical History Asthma Avascular necrosis Chronic pain Chronic pain syndrome Degeneration, intervertebral disc, cervical Depression Dysphagia Fatty liver HTN (hypertension) Hx of chest pain Hypothyroid Kidney cysts Lipoma of scalp Mood disorder DAYNA on CPAP Pre-diabetes Psoriasis Psoriatic arthritis Schatzki's ring 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 Spondylosis, cervical Functional capacity: independent ambulation Family History Family History Father Cirrhosis Alcoholism Mother Diabetes HTN (hypertension) Parkinson disease Brother Cirrhosis Alcoholism Surgical History Surgical History History of back surgery History of surgery Status post excision of lipoma (~10/21/21) Status post cardiac catheterization Hx of cardiac cath H/O neck surgery Hx of hand surgery Hx of endoscopy History of colonoscopy Social History Social History Household Members: Spouse and Children Are you a primary healthcare network pricing consultant to a significant other at home: No Do you presently have visiting nurse or other home services: No Alcohol intake: never Patient Tobacco Use Status: Former Tobacco user Tobacco use type: Cigarette Second Hand Smoke Exposure: No Current occupational status: disabled Current occupation: rt handed Meds Allergies Allergy/AdvReac Type Severity Reaction Status Date / Time No Known Allergies Allergy Verified 07/27/23 09:18 [No Known Allergies*] Home Medications Medication Instructions Recorded Confirmed Last Taken Type albuterol sulfate 90 mcg/actuation 2 puff inhalation Q6H PRN Wheezing 08/10/20 06/15/23 Unknown History aerosol inhaler (ProAir HFA) escitalopram oxalate 20 mg tablet 20 mg PO DAILY 08/10/20 06/15/23 03/31/22 History fluticasone propionate 50 1 spray intranasal DAILY 08/10/20 06/15/23 Unknown History mcg/actuation nasal spray,suspension buspirone 15 mg tablet 15 mg PO BID 10/27/21 06/15/23 07/08/22 07:00 History amlodipine 5 mg tablet 1 tab PO DAILY 03/23/22 06/15/23 03/31/22 History amitriptyline 50 mg tablet 50 mg PO BEDTIME 08/05/22 06/15/23 Unknown History atorvastatin 80 mg tablet 80 mg PO BEDTIME 08/05/22 06/15/23 Unknown History cholecalciferol (vitamin D3) 50 50 mcg PO DAILY 08/05/22 06/15/23 Unknown History mcg (2,000 unit) tablet epinephrine 0.3 mg/0.3 mL IM DIRECTED 08/05/22 06/15/23 Unknown History injection, auto-injector lidocaine 5 % topical patch 0 patch topical 08/05/22 06/15/23 Unknown History (Lidoderm) ibuprofen 600 mg tablet 600 mg PO TID 06/09/23 06/15/23 Unknown History Exam Airway Mallampati Class: III Loose/Missing/Broken Teeth: Yes Assessment and Plan Assessment Anesthesia Assessment: Anesthesia Plan Discussed Final Anesthetic Review NPO: Yes ASA Class: III Final Preanesthetic Review: Meds/Allgs Chart Reviewed, Consent Obtained/Reviewed and Anes Risks/Benef Reviewed Patient Risk: Intermediate Procedure Risk: Intermediate Anesthetic Plan Anesthetic Plan: MAC: and Agree w/ Assess. and Plan Disposition: Standard PACU
[2023-07-27 09:12] VITALS: BMI 30.6
[2023-07-27 09:56] VITALS: BP 136/71; PULSE 80; RESP 18; TEMP 36.7; O2SAT 98
[2023-07-27] MEDS: Lactated Ringers 1,000 ML 100 ML IVCONT (10:04)
[2023-07-27 10:14] VITALS: PULSE 73; RESP 16; O2SAT 96
[2023-07-27] MEDS: Albuterol/Iprat 2.5/0.5MG 3 ML AMPUL.NEB INHALE (10:14)
--- NOTE | 2023-07-27 10:25 | P.HPSUR_ITS ---
Pre-Procedural Eval Section A Date of Service: 07/27/23 Section B Chief Complaint: gerd,screening,abdominal pain, Relevant Family History (Specify if Yes): No Relevant Social History: None Present Medications: see Short Stay Collaborative assessment Medical History: Significant History (Asthma Avascular necrosis Chronic pain Chronic pain syndrome Degeneration, intervertebral disc, cervical Depression D ysphagia Fatty liver HTN (hypertension) Hx of chest pain Hypothyroid Kidney cysts Lipoma of scalp Mood disorder DAYNA on CPAP Pre-diabetes Psoriasis Psoriatic arthritis Schatzki's ring ) History of Previous Operations: Relevant previous surgery/procedure and date(s) (History of back surgery History of surgery Status post excision of lipoma (~10/21/21) Status post cardiac catheterization Hx of cardiac cath H/O neck surgery Hx of hand surgery Hx of endoscopy History of colonoscopy) Allergies: Allergies Allergy/AdvReac Type Severity Reaction Status Date / Time No Known Allergies Allergy Verified 07/27/23 09:18 [No Known Allergies*] Review of Systems Sugical H&P ROS: Negative: Constitution, Cardiovascular, Respiratory, Neurological, Psychiatric, Hem-Onc, Allergic/Immunologic, Gastrointestinal, Genitourinary, Musculoskeletal, Integumentary, Endocrine and Eyes/Ears/Nose/Throat Exam Surgical H&P Exam: Normal: HEENT, Normal: Heart, Normal: Lungs, Normal: Extremities, Normal: Abdomen, Normal: Skin and Normal: Neurological Plan Diagnosis/Plan: Unchanged I have reviewed the history and physical and performed a pertinent physical examination on my patient. No changes have occurred unless specified. Time Spent With Patient Time: Total time managing care of this patient today ____ minutes.
--- NOTE | 2023-07-27 11:00 | W.PM.OPN ---
Operative Note Operative Note Date of Service: 07/27/23 Narrative: Procedure Description: EGD Indication: dysphagia and regurgiation Anesthesia: MAC FLEXIBLE TRANSORAL UPPER GASTROINTESTINAL ENDOSCOPY UPPER ENDOSCOPY Consent: Indications for the procedure and potential complications of bleeding, perforation, reaction to medications and missed diagnosis were discussed with the patient and informed consent was obtained. Instrument: Olympus GIF H 190 J mid size upper endoscope Monitoring: Vital signs and clinical assessment, continuous EKG monitoring, Pulse oximetry, Carbon Dioxide monitoring and blood pressure monitoring were done throughout the procedure. Procedure: The patient was placed in the left lateral decubitis position and pre-procedure medications were administered and a bite block was placed. The endoscope was inserted into the mouth and advanced under direct vision to the third part of duodenum. A careful inspection was made as the upper endoscope was withdrawn including a retroflexed examination of the proximal stomach; Findings and interventions are described below. Findings: Larynx:normal Esophagus: GE junction at 37 cm, diaphragm hiatus at 39 cm, consistent with 2 cm sliding hiatal hernia, no esophagitis seen, schatzki ring noted. Balloon dilation done at 19 mm at LES and UES. Antony was placed at 31 cm with initial pH 5.6 Stomach: Patchy gastric erythema with scarring. Biopsies were obtained. Grade 2 flap valve on retroflexed examination of the cardia. Duodenum: bulbar duodenitis, normal descending duodenum, bx taken Intervention: Biopsies as noted above, balloon dilation and Antony placement Impression/Findings: schatzki ring gastritis duodenitis hiatal hernia PLAN: await bx results cont with PPI for the antony study
[2023-07-27 11:12] VITALS: BP 111/67; PULSE 99; RESP 15; TEMP 36.2; O2SAT 96
[2023-07-27 11:27] VITALS: BP 116/75; PULSE 98; RESP 14; TEMP 36.2; O2SAT 95
[2023-07-27 11:42] VITALS: BP 117/71; PULSE 81; RESP 16; TEMP 36.2; O2SAT 97
== END 2023-07-27 12:55 | disposition home or self-care (01) ==
PROVIDERS: PCP Family Medicine; Visit Provider Internal Medicine Gastroenterology
PROC: (CPT 43249; principal; 2023-07-27 10:40)
DX: K22.2 Esophageal obstruction (principal); K29.70 Gastritis, unspecified, without bleeding; K29.80 Duodenitis without bleeding; K44.9 Diaphragmatic hernia without obstruction or gangrene; R13.10 Dysphagia, unspecified; E11.9 Type 2 diabetes mellitus without complications; I10 Essential (primary) hypertension; J45.909 Unspecified asthma, uncomplicated; K76.0 Fatty (change of) liver, not elsewhere classified; G47.33 Obstructive sleep apnea (adult) (pediatric); Z99.89 Dependence on other enabling machines and devices; Z87.891 Personal history of nicotine dependence; Z79.899 Other long term (current) drug therapy
CPT/HCPCS: 43249; 43239; 88305; 88342; 94640; C1726

== ENCOUNTER → 2023-07-27 08:37 | Outpatient (BNV) | payer MEDICAID, SELFPAY ==
--- NOTE | 2023-08-08 11:55 | MHC.OFFVIS ---
Intake Intake Visit Reasons: gerd,screening,abdominal pain, Allergies No Known Allergies [No Known Allergies*] Allergy (Verified 08/07/23 08:14) PFSH Medical History Asthma Avascular necrosis Chronic pain Chronic pain syndrome Degeneration, intervertebral disc, cervical Depression Dysphagia Fatty liver HTN (hypertension) Hx of chest pain Hypothyroid Kidney cysts Lipoma of scalp Mood disorder DAYNA on CPAP Pre-diabetes Psoriasis Psoriatic arthritis Schatzki's ring 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 Spondylosis, cervical Surgical History History of back surgery History of surgery Status post excision of lipoma (~10/21/21) Status post cardiac catheterization Hx of cardiac cath H/O neck surgery Hx of hand surgery Hx of endoscopy History of colonoscopy Family History (Updated 07/28/23 @ 08:05 by Maria Luisa Gentile [facility]) Father Cirrhosis Alcoholism Mother Diabetes HTN (hypertension) Parkinson disease Brother Cirrhosis Alcoholism Social History Household Members: Spouse and Children Are you a primary family member caretaker to a significant other at home: No Do you presently have visiting nurse or other home services: No Alcohol intake: never Patient Tobacco Use Status: Former Tobacco user Tobacco use type: Cigarette Second Hand Smoke Exposure: No Current occupational status: disabled Current occupation: rt handed Office Procedures AMB Capsule Endoscopy Procedure Notes: [facility] date of service: 07/31/23 Indication: GERD Findings: Negative study, negative [place]eester and SAP suggesting no significant GERD Conclusion: Negative study (on PPI), if ongoing sx may have NERD< non acid reflux (full report to be scanned Capsule Endoscopy CPT Code: 84063 - [facility] Assessment & Plan Assessment & Plan (1) GERD (gastroesophageal reflux disease): Code(s): K21.9 - Gastro-esophageal reflux disease without esophagitis Coding Level of Care Code Procedure Only Diagnoses GERD (gastroesophageal reflux disease) K21.9 CPT Codes AMB Capsule Endoscopy - Capsule Endoscopy CPT Code: 00292 - [facility] ([id number])
== END ==
PROVIDERS: PCP Family Medicine; Visit Provider Internal Medicine Gastroenterology
DX: K21.9 Gastro-esophageal reflux disease without esophagitis (principal)
CPT/HCPCS: 43249; 91035

== ENCOUNTER 2023-07-28 07:48 | Outpatient (AMB) | payer MEDICAID, SELFPAY ==
--- NOTE | 2023-07-28 07:52 | A.OFFVIS_ITS ---
Intake Vital Signs 07/28/23 08:06 Height 5 ft 2 in Weight 175 lb BMI 32.0 BP 122/84 Blood Pressure Location Lt brachial Position Sitting Pulse 78 Pulse Source Pulse Oximeter Pulse Oximetry (%) 96 Oxygen Delivery Method Room Air Intake Visit Reasons: ENP-DAYNA - Confirmed Intake Note: NPV for Sleep Apnea, patient states he has been diagnosed with Fibromyalgia. Equal Opportunity Assistant Required: Yes Equal Opportunity Assistant Name: [id number] Allergies No Known Allergies [No Known Allergies*] Allergy (Verified 07/28/23 07:53) HPI HPI Comments History of Present Illness Details 58 y/o male patient presents with his wi fe for new in-person visit to manage DAYNA. Pt was diagnosed with severe degree of sleep apnea in 2020. The home sleep study (03/23/2021) result was significant for severe degree of sleep apnea. The AHI was 62/hr and oxygen rehan was 71%, below 88% for 29 min. Pt also underwent titration study, and started CPAP at 60ysT0F. Pt had a repeat PSG sleep study done in 01/2023. The PSG study result was mild degree of sleep apnea, the AHI was 7/hr, oxygen rehan was 83%. Pt continues to use CPAP. The CPAP compliance and therapy response (06/29/23-07/28/23) reviewed. The usage days 97% and the average usage hours 6 hrs 30 min. The median pressure is 7.2 and the AHI was 0.6/hr. However, pt reports he can't sleep well with the CPAP pressure, he feels the pressure is too high. He continues to endorse non refreshing sleep and daytime sleepiness. Pt was also evaluated by director of orthopedics for dyspnea. He states that he can't breathe deep enough, and having shortness of breath with exertion. His states that he still snores with CPAP. Pt does not want to try somnoguard at this time due to the cost.. Pt reports he is not physically active. [facility] Medical History Asthma Avascular necrosis Chronic pain Chronic pain syndrome Degeneration, intervertebral disc, cervical Depression Dysphagia Fatty liver HTN (hypertension) Hx of chest pain Hypothyroid Kidney cysts Lipoma of scalp Mood disorder DAYNA on CPAP Pre-diabetes Psoriasis Psoriatic arthritis Schatzki's ring 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 Spondylosis, cervical Surgical History History of back surgery History of surgery Status post excision of lipoma (~10/21/21) Status post cardiac catheterization Hx of cardiac cath H/O neck surgery Hx of hand surgery Hx of endoscopy History of colonoscopy Family History (Updated 07/28/23 @ 08:05 by Maria Luisa Gentile CMA) Father Cirrhosis Alcoholism Mother Diabetes HTN (hypertension) Parkinson disease Brother Cirrhosis Alcoholism Social History (Updated 07/28/23 @ 08:06 by Maria Luisa Gentile CMA) Household Members: Spouse and Children Are you a primary career portals teacher to a significant other at home: No Do you presently have visiting nurse or other home services: No Alcohol intake: never Patient Tobacco Use Status: Former Tobacco user Tobacco use type: Cigarette Second Hand Smoke Exposure: No Current occupational status: disabled Current occupation: rt handed Review of Systems Const All systems reviewed & are unremarkable except as noted in HPI and below ENT Reports Normal hearing present Neuro Reports Normal hearing present Physical Exam Vital Signs: Last Vital Signs Pulse 78 07/28/23 08:06 BP 122/84 07/28/23 08:06 Pulse Ox 96 07/28/23 08:06 Oxygen Delivery Method Room Air 07/28/23 08:06 BMI result Body Mass Index 32.0 Const General: cooperative and tired appearing Nutritional Appearance: obese Orientation/consciousness: patient oriented x3 Limitations: language barrier (Nigerien speaking only.) and ambulation with cane Neck Neck: Yes full ROM and Yes supple Resp Effort & Inspection: normal respiratory effort and able to speak in complete sentences Neuro General: patient oriented x3 Cranial nerves: Yes Bilaterally intact EOM present, Yes Normal facial strength present, Yes Midline tongue present, Yes Symmetric palate elevation present, Yes Normal hearing present, Yes Ability to bilaterally rotate head present and Yes Ability to bilaterally elevate shoulders present Cognition (Neuro): normal cognition Motor exam (neuro): 5/5 motor strength present throughout and Pronator motor function not present Psych Appearance: grossly normal Mental Status: mental status grossly normal Speech and movement: Normal speech and movement present Affect: normal affect Attitude: cooperative Assessment & Plan Assessment & Plan (1) Dyspnea on exertion: Code(s): R06.09 - Other forms of dyspnea (2) DAYNA (obstructive sleep apnea): Comment: On CPAP. Code(s): G47.33 - Obstructive sleep apnea (adult) (pediatric) Plan Advised patient to try APAP [id number], use pillows and elevate his head while he sleeps to breath easier. Pressure adjusted. Also he may try not using CPAP couple of days to see if he can breath and sleep better. Pt does not want to try mandibular device to treat mild degree of sleep apnea due to the cost. Wt reduction advised. Coding Level of Care Code New Pt Level 4 (81410) Diagnoses Dyspnea on exertion R06.09 DAYNA (obstructive sleep apnea) G47.33
[2023-07-28 08:06] VITALS: BP 122/84; PULSE 78; O2SAT 96; BMI 32.0
== END 2023-07-28 09:05 | disposition home or self-care (01) ==
PROVIDERS: PCP Family Medicine; Visit Provider Nurse Practitioner Family
DX: R06.09 Other forms of dyspnea (principal); G47.33 Obstructive sleep apnea (adult) (pediatric)
CPT/HCPCS: 99204

== ENCOUNTER → 2023-07-28 07:48 | Outpatient (BNVA) | payer MEDICAID, SELFPAY | PROVIDERS: PCP Family Medicine; Visit Provider Nurse Practitioner Family | DX: R06.09 Other forms of dyspnea (principal); G47.33 Obstructive sleep apnea (adult) (pediatric); M79.7 Fibromyalgia; Z99.89 Dependence on other enabling machines and devices | CPT/HCPCS: 99212 ==

== ENCOUNTER 2023-08-01 13:03 | Outpatient (AMB) | payer MEDICAID, SELFPAY ==
[2023-08-01 13:06] VITALS: BP 100/60; PULSE 80; O2SAT 97; BMI 31.9
--- NOTE | 2023-08-01 13:06 | A.OFFVIS_ITS ---
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 After the last office visit when he received a fullface mask is symptoms are well controlled on his CPAP. He does continue to complain of significant dyspnea on exertion , only with some improvement on Bumex. [facility] Medical History Asthma Avascular necrosis Chronic pain Chronic pain syndrome Degeneration, intervertebral disc, cervical Depression Dysphagia Fatty liver HTN (hypertension) Hx of chest pain Hypothyroid Kidney cysts Lipoma of scalp Mood disorder DAYNA on CPAP Pre-diabetes Psoriasis Psoriatic arthritis Schatzki's ring 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 Spondylosis, cervical Surgical History History of back surgery History of surgery Status post excision of lipoma (~10/21/21) Status post cardiac catheterization Hx of cardiac cath H/O neck surgery Hx of hand surgery Hx of endoscopy History of colonoscopy Family History (Updated 07/28/23 @ 08:05 by Maria Luisa Gentile [facility]) Father Cirrhosis Alcoholism Mother Diabetes HTN (hypertension) Parkinson disease Brother Cirrhosis Alcoholism Social History Household Members: Spouse and Children Are you a primary patient care technician to a significant other at home: No Do you presently have visiting nurse or other home services: No Alcohol intake: never Patient Tobacco Use Status: Former Tobacco user Tobacco use type: Cigarette Second Hand Smoke Exposure: No Current occupational status: disabled Current occupation: rt handed Review of Systems Const Denies daytime sleepiness, Denies excessive sweating, Denies fatigue, Denies fever(s), Denies lethargy, Denies malaise, Denies night sweats, Denies snoring and Denies weight loss Eyes Denies blurry vision and Denies itchy eyes ENT Denies nasal congestion, Denies post nasal drip, Denies sinus pain, Denies sinus pressure and Denies other ( Thrush) Card Denies chest pain, Denies pedal edema, Denies dyspnea, Reports dyspnea on exertion, Denies orthopnea and Denies paroxysmal nocturnal dyspnea Resp Denies cough, Denies hemoptysis, Denies excessive phlegm production, Denies dyspnea, Reports dyspnea on exertion, Denies snoring and Denies wheezing GI Denies abdominal pain and Denies heartburn Musc Denies myalgias, Denies arthralgias and Denies joint swelling Skin/Breast Denies rash Neuro Denies memory loss and Denies seizure-like activity Psych Denies abnormal sleep pattern, Denies anxiety and Denies memory loss Endo Denies excessive sweating, Denies fatigue and Denies heat intolerance Daniel/Lymph Denies easy bruising Aller/Immun Denies itchy eyes, Denies seasonal rhinorrhea and Denies wheezing Physical Exam Vital Signs: Last Vital Signs Pulse 80 08/01/23 13:06 BP 100/60 08/01/23 13:06 Pulse Ox 97 08/01/23 13:06 Oxygen Delivery Method Room Air 08/01/23 13:06 BMI result Body Mass Index 31.9 Const General: no acute distress and alert Nutritional Appearance: not obese Orientation/consciousness: Other orientation findings ( oriented) HEENT Head: Yes atraumatic Eyes General: appearance normal, both eyes and all related structures Sclerae: sclerae normal EOM: EOMs intact bilaterally Neck Neck: Yes supple Lymphatic: no lymphadenopathy noted Resp Effort & Inspection: normal respiratory effort and no use of accessory muscles Auscultation: clear to auscultation bilaterally Cardio Rate: regular rate Rhythm: regular rhythm Heart sounds: no gallops, no murmurs and no rubs Skin General skin exam: other ( warm) Extrem General: No clubbing, No cyanosis and No edema Assessment & Plan Assessment & Plan (1) Dyspnea on exertion: Code(s): R06.09 - Other forms of dyspnea Plan: Does not appear to have significant pulmonary etiology, though exact etiology is unclear. Will obtain cardiopulmonary exercise test. Continue on Bumex. (2) DAYNA (obstructive sleep apnea): Comment: On CPAP. Code(s): G47.33 - Obstructive sleep apnea (adult) (pediatric) Plan: Well controlled on current CPAP therapy. Continue CPAP therapy. Coding Level of Care Code Est Pt Level 4 (72430) Diagnoses Dyspnea on exertion R06.09 DAYNA (obstructive sleep apnea) G47.33
== END 2023-08-01 13:30 | disposition home or self-care (01) ==
PROVIDERS: PCP Family Medicine; Visit Provider Internal Medicine Pulmonary Disease
DX: R06.09 Other forms of dyspnea (principal); G47.33 Obstructive sleep apnea (adult) (pediatric)
CPT/HCPCS: 99214

== ENCOUNTER → 2023-08-01 13:03 | Outpatient (BNVA) | payer MEDICAID, SELFPAY | PROVIDERS: PCP Family Medicine; Visit Provider Internal Medicine Pulmonary Disease | DX: G47.33 Obstructive sleep apnea (adult) (pediatric) (principal); R06.09 Other forms of dyspnea | CPT/HCPCS: 99212 ==

== ENCOUNTER 2023-08-07 08:12 | Outpatient (AMB) | payer MEDICAID, SELFPAY ==
--- NOTE | 2023-08-07 08:13 | MHC.OFFVIS ---
Intake Intake Visit Reasons: OV - Left Hip AVN Intake Note: Kvng is a 58year old male who presents today for a follow up appointment of his left hip avascular necrosis. At his last visit he was referred to neurosurgery who recommends EMG once orthopedic problem is dealt with. Allergies No Known Allergies [No Known Allergies*] Allergy (Verified 08/07/23 08:14) HPI OV - Left Hip AVN HPI Details Kvng is a 58 year old man who returns to discuss his left hip AVN. He was seen by Neurosurgery for his lumbar radiculopathy, who did not find any surgical interention warranted and recommend his hip be treated first instead. They also suggest an EMG after his hip is managed. He was last seen by Pain Management and had a Fentanyl intrathecal pump implanted on 03/21/23. His MRI and plain films showed stable left AVN without chondral collapse He continues to complain of lateral right leg numbness and tingling, extending down his lateral lower leg, right-sided lower back & buttocks pain. 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 Spondylosis, cervical Surgical History History of back surgery History of surgery Status post excision of lipoma (~10/21/21) Status post cardiac catheterization Hx of cardiac cath H/O neck surgery Hx of hand surgery Hx of endoscopy History of colonoscopy Family History (Updated 07/28/23 @ 08:05 by Maria Luisa Gentile [facility]) Father Cirrhosis Alcoholism Mother Diabetes HTN (hypertension) Parkinson disease Brother Cirrhosis Alcoholism Social History Household Members: Spouse and Children Are you a primary family day care worker to a significant other at home: No Do you presently have visiting nurse or other home services: No Alcohol intake: never Patient Tobacco Use Status: Former Tobacco user Tobacco use type: Cigarette Second Hand Smoke Exposure: No Current occupational status: disabled Current occupation: rt handed Review of Systems Const All systems reviewed & are unremarkable except as noted in HPI and below Physical Exam Const General: no acute distress, alert and awake Orientation/consciousness: patient oriented x3 HEENT Head: Yes normocephalic and Yes atraumatic Eyes EOM: EOMs intact bilaterally Resp Effort & Inspection: normal respiratory effort and able to speak in complete sentences Cardio Jugular venous distension: no JVD Skin General skin exam: turgor normal Rashes: no rashes Neuro General: patient oriented x3 Extrem Other: no hip pain with ROM neg impringement neg [place]field Psych Appearance: grossly normal Affect: normal affect Attitude: cooperative Assessment & Plan Assessment & Plan (1) Avascular necrosis of bone of left hip: Code(s): M87.052 - Idiopathic aseptic necrosis of left femur Plan: This is a 58 year old man with asymptomatic AVN of left femoral head with no evidence of collapse. He has back pain and backpain related leg symptoms. Seen by spine but no intervetion recommended. I discussed my finding with him and he will follow up PRN> No ortho intervention warranted at this time. (2) Disc degeneration, lumbar: Code(s): M51.36 - Other intervertebral disc degeneration, lumbar region Plan: Lumbar radiculopathy, with lateral right leg numbness, tingling, and pain, extending down his lateral lower leg, and limited in his function. Was seen by Neurosurgery who did not see a place for surgical intervention and recommend his hip be managed first. (3) Neurogenic claudication due to lumbar spinal stenosis: Code(s): M48.062 - Spinal stenosis, lumbar region with neurogenic claudication (4) Fibromyalgia: Code(s): M79.7 - Fibromyalgia Plan: Intrathecal Fentanyl pump implanted by Pain Management on 03/21/23. Coding Level of Care Code Est Pt Level 4 (31102) Diagnoses Avascular necrosis of bone of left hip M87.052 Disc degeneration, lumbar M51.36 Neurogenic claudication due to lumbar spinal stenosis M48.062 Fibromyalgia M79.7
== END 2023-08-07 09:08 | disposition home or self-care (01) ==
PROVIDERS: PCP Family Medicine; Visit Provider Orthopaedic Surgery
DX: M87.052 Idiopathic aseptic necrosis of left femur (principal); M51.36 Other intervertebral disc degeneration, lumbar region; M48.062 Spinal stenosis, lumbar region with neurogenic claudication; M79.7 Fibromyalgia
CPT/HCPCS: 99213

== ENCOUNTER → 2023-08-07 08:12 | Outpatient (BNVA) | payer MEDICAID, SELFPAY | PROVIDERS: PCP Family Medicine; Visit Provider Orthopaedic Surgery | DX: M87.052 Idiopathic aseptic necrosis of left femur (principal); M51.36 Other intervertebral disc degeneration, lumbar region; M48.062 Spinal stenosis, lumbar region with neurogenic claudication; M79.7 Fibromyalgia | CPT/HCPCS: 99212 ==

== ENCOUNTER 2023-08-25 11:57 | Outpatient (AMB) | payer MEDICAID, SELFPAY ==
--- NOTE | 2023-08-25 12:02 | A.OFFVIS_ITS ---
Intake Vital Signs 08/25/23 12:06 Height 5 ft 2 in Weight 172 lb BMI 31.5 BP 102/69 Blood Pressure Location Lt brachial Position Sitting Pulse 87 Intake Visit Reasons: S/P EGD with Vieyra; Dr Nelson Intake Note: Patient follow up for EGD with Vieyra results. Patient cc: constipation, swallowing problems due his esophagus problems, and acid reflex with burning sensation come and go. Rod Machine Operator Required: No Rod Machine Operator Name: [facility] interpeter Accompanied by: Self / Same As Patient Allergies No Known Allergies [No Known Allergies*] Allergy (Verified 08/25/23 12:01) HPI S/P EGD with Vie[facility]; Dr Nelson HPI Details 58 yr old m here for f/u RECAP[place] [facility] [place] ? c/o tightness in his throat, ? been on protonix for GERD, well controlled ? anxiety regarding swallowing and fear of choking but not actually choking. he had been told he has prominent spur in the neck which maybe causing his symptoms by his neurosurgeon CT 2018--fatty liver, liver cyst, bilobed and septated ? Ba swallow with prominent cricopharyngeal sphincter ? EGD --: LA grade A esophagitis, schatzki ring, balloon dilation w tear noted, antral erosive gastritis, bulbar duodenitis ? reflux changes on bx ? ? he was still c/o sx at f/u with saliva choking him, tightness ? ? PCP ordered us and pos for fatty liver, LFT have been normal. ?he can swallow food without any issue except for one occasion 4 d felt like some sfood stuck in stomach ? still taking carafate and pantopRAZOLE, feels doesn't help him seeing pain management for hip I ordered cardiac eval due to SOB,this was neg MBS ---unremarkable MRI--10/2020--Fatty liver. Several liver cysts, largest a minimally complex cyst measuring 4.5 x 3.6 cm in the right lobe of the liver. 1 cm probable complex cyst in the lower pole of the left kidney. Diverticulosis of the colon. repeat MRI 04/2021--The dominant cyst central right lobe with circumscribed macrolobulated margins is without significant change in size, measuring 4.6 x 3.8 x 4.5 cm on current study. Prior measureme nt is 4.4 x 3.7 x 4.4 cm on MR 10/28/2020 and 3.9 x 3.2 x [address] a bdomen 07/18/2019, (both prior exams remeasured in same orientation). Fine incomplete nonenhancing septation noted previously is not demonstrated on current study. There is no solid component or visible septation. EGD with dilation 05/06/21 Impression/Findings: schatzki ring esophagitis gastritis duodenitis maybe due to medications i.e CCB, SSRI GES 08/2021-- nml emptying at 4 hrs He had a lot of mucous and sputum and I had given him loratadine, pepcid A rept MRI was ordered with stable liver and renal cysts Ba swallow with tab 09/2022 w/o stricture, some dysmotility noted US: 01/2023-- liver cyst and small kidney cysts, fatty liver, mild raised elastography ?INTERIM: He has been better with reflux with higher dose omeprazole 40 mg , reviewed VIEYRA results he has noted distention and constipation he took miralax in the past, not had it for a long time, it worked well for him in the past he has itchy rash on torso and back for last few days, had same when got spinal injection in the past he has cat and dog at [place] uncertain abt tick bites EXAM: GENERAL: The patient is well developed and nontoxic. VITAL SIGNS:see workflow HEENT: Nonicteric sclerae, PERRLA, EOMI. Oropharynx clear. Moist mucous membranes. Conjunctivae appear well perfused. No thyroid mass. CHEST: Chest wall is tender to touch HEART: Regular rate and rhythm without murmurs. LUNGS: Clear to auscultation bilaterally. ABDOMEN: Soft, positive bowel sounds, nontender, no organomegaly. pos? flank tenderness right side SKIN: maculopapular rash on torso and back, looks like dermatitis NEUROLOGIC: Cranial nerves II-XII intact without motor/sensory deficit. psych: appropriate effect MS: para spinal tenderness, walking with stick and uncomfortable ? A/P:? 1/ ?maculopapular rash, possibly allergi c 2/constipation PLAN: 1/ cont omeprazole 40 mg 2/ loratadine and short sourse pred 3/ rast testing and KUB --sent miralax 4/ lyme disease check ? [facility] Medical History Asthma Avascular necrosis Chronic pain Chronic pain syndrome Degeneration, intervertebral disc, cervical Depression Dysphagia Fatty liver HTN (hypertension) Hx of chest pain Hypothyroid Kidney cysts Lipoma of scalp Mood disorder DAYNA on CPAP Pre-diabetes Psoriasis Psoriatic arthritis Schatzki's ring 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 Spondylosis, cervical Surgical History History of back surgery History of surgery Status post excision of lipoma (~10/21/21) Status post cardiac catheterization Hx of cardiac cath H/O neck surgery Hx of hand surgery Hx of endoscopy History of colonoscopy Family History Father Cirrhosis Alcoholism Mother Diabetes HTN (hypertension) Parkinson disease Brother Cirrhosis Alcoholism Social History Household Members: Spouse and Children Are you a primary home child care provider to a significant other at home: No Do you presently have visiting nurse or other home services: No Alcohol intake: never Patient Tobacco Use Status: Former Tobacco user Tobacco use type: Cigarette Second Hand Smoke Exposure: No Current occupational status: disabled Current occupation: rt handed Physical Exam Vital Signs: Last Vital Signs Pulse 87 08/25/23 12:06 BP 102/69 08/25/23 12:06 BMI result Body Mass Index 31.5 Assessment & Plan Assessment & Plan (1) GERD (gastroesophageal reflux disease): Code(s): K21.9 - Gastro-esophageal reflux disease without esophagitis (2) Allergy: Code(s): T78.40XA - Allergy, unspecified, initial encounter (3) Epigastric abdominal pain: Code(s): R10.13 - Epigastric pain Orders: Orders Histamine Plasma Today K21.9 - Gastro-esophageal reflux disease without esophagitis, T78.40XA - Allergy, unspecified, initial encounter C Reactive Protein Today E46 - Unspecified protein-calorie malnutrition, K21.9 - Gastro-esophageal reflux disease without esophagitis, R10.13 - Epigastric pain, T78.40XA - Allergy, unspecified, initial encounter Comprehensive Met. Panel Today E46 - Unspecified protein-calorie malnutrition, K21.9 - Gastro-esophageal reflux disease without esophagitis, K75.81 - Nonalcoholic steatohepatitis (CROSS), R10.13 - Epigastric pain, T78.40XA - Allergy, unspecified, initial encounter Lyme IgG/IgM w/reflex to WB Today E46 - Unspecified protein-calorie malnutrition, K21.9 - Gastro-esophageal reflux disease without esophagitis, R10.13 - Epigastric pain, T78.40XA - Allergy, unspecified, initial encounter Vitamin B12 and Folate Today E46 - Unspecified protein-calorie malnutrition, K21.9 - Gastro-esophageal reflux disease without esophagitis, R10.13 - Epigastric pain, T78.40XA - Allergy, unspecified, initial encounter Zinc Today E46 - Unspecified protein-calorie malnutrition, K21.9 - Gastro- esophageal reflux disease without esophagitis, R10.13 - Epigastric pain, T78.40XA - Allergy, unspecified, initial encounter Ferritin Today E46 - Unspecified protein-calorie malnutrition, K21.9 - Gastro- esophageal reflux disease without esophagitis, R10.13 - Epigastric pain, T78.40XA - Allergy, unspecified, initial encounter Rast Allergen Today K21.9 - Gastro-esophageal reflux disease without esophagitis, T78.40XA - Allergy, unspecified, initial encounter XR KUB Today R10.13 - Epigastric pain Complete Blood Count Auto Diff Today E46 - Unspecified protein-calorie malnutrition, K21.9 - Gastro-esophageal reflux disease without esophagitis, R10.13 - Epigastric pain, T78.40XA - Allergy, unspecified, initial encounter Vitamin B1 Today E46 - Unspecified protein-calorie malnutrition, K21.9 - Gastro- esophageal reflux disease without esophagitis, R10.13 - Epigastric pain, T78.40XA - Allergy, unspecified, initial encounter Medications: New loratadine (Claritin) 10 mg PO DAILY 30 tabs 3RF polyethylene glycol 3350 (Miralax) 17 grams PO DAILY 510 grams 0RF prednisone 40 mg (2 x 20 mg) PO DAILY 6 tabs 0RF 3 days Discontinued loratadine Discontinued Reason: Doctor's Order 10 mg PO DAILY 90 tabs 3RF Coding Level of Care Code Est Pt Level 3 (38910) Diagnoses GERD (gastroesophageal reflux disease) K21.9 Allergy T78.40XA Epigastric abdominal pain R10.13
[2023-08-25 12:06] VITALS: BP 102/69; PULSE 87; BMI 31.5
== END 2023-08-25 12:33 | disposition home or self-care (01) ==
PROVIDERS: PCP Family Medicine; Referring Provider Family Medicine; Visit Provider Internal Medicine Gastroenterology
DX: K21.9 Gastro-esophageal reflux disease without esophagitis (principal); T78.40XA Allergy, unspecified, initial encounter; R10.13 Epigastric pain
CPT/HCPCS: 99213

== ENCOUNTER → 2023-08-25 11:57 | Outpatient (BNVA) | payer MEDICAID, SELFPAY | PROVIDERS: PCP Family Medicine; Visit Provider Internal Medicine Gastroenterology | DX: K21.9 Gastro-esophageal reflux disease without esophagitis (principal); T78.40XA Allergy, unspecified, initial encounter; R10.13 Epigastric pain | CPT/HCPCS: 99212 ==

== ENCOUNTER 2023-08-29 08:04 | Outpatient (REF) | payer MEDICAID, SELFPAY ==
--- NOTE | ~2023-08-29 | XR_ITS ---
EXAMINATION: XR ABDOMEN KUB CLINICAL INDICATION: Epigastric pain COMPARISON: None available. TECHNIQUE: AP view of the abdomen. FINDINGS: Nonobstructive bowel pattern. Solid visceral outlines are poorly seen. Rounded structure in the right upper quadrant may be due to superimposition of structures. Elevated right hemidiaphragm with right base atelectasis. Pelvic phleboliths. Sclerotic left femoral head without flattening. XR/XR KUB IMPRESSION: No evidence of bowel obstruction.
[2023-08-29 08:37] LABS: Basophils Percent Auto 0.3 % (0-2); Eosinophils Absolute Auto 0.2 X10*3/uL (0.0-0.4); Eosinophils Percent Auto 2.5 % (0-4); Hematocrit 46.3 % (42.0-52.0); Hemoglobin 15.5 g/dl (14.0-18.0); Imm Gran Abs Auto 0.04 X10*3/uL (0.00-0.03); Imm Gran Pct Auto 0.5 % (0.0-0.4); Lymphocytes Absolute Auto 5.1 X10*3/uL (1.2-4.9); Lymphocytes Percent Auto 57.9 % (20-40); MANUAL DIFF FLAG SCAN; Mean Corpuscular HGB Conc 33.5 g/dl (31.0-36.0); Mean Corpuscular Hemoglobin 30.5 pg (27.0-33.0); Mean Platelet Volume 8.6 fL (9.4-12.4); Monocytes Absolute Auto 0.6 X10*3/uL (0.1-1.2); Monocytes Percent Auto 7.2 % (2-11); Neutrophils Absolute Auto 2.8 x10*3/uL (2.0-8.3); Neutrophils Percent Auto 31.6 % (45-73); Platelet Count 297 X10*3/uL (160-400); Red Blood Count 5.09 X10*6/uL (4.60-5.80); Red Cell Distribution Width 12.9 % (11.0-16.0); SCAN SMEAR FLAG 1; White Blood Count 8.9 X10*3/uL (4.8-10.8)
[2023-08-29 08:59] LABS: Alanine Aminotransferase 41 U/L (0-40); Albumin Level 4.3 g/dL (3.5-5.0); Alkaline Phosphatase 89 U/L (39-117); Anion Gap 12 (12-20); Aspartate Amino Transferase 32 U/L (5-37); Bilirubin Total 0.4 mg/dL (0.0-1.0); Blood Urea Nitrogen 22 mg/dL (9-16); C Reactive Protein 0.11 mg/dL (< or = 0.50); Calcium 9.7 mg/dL (8.4-10.2); Carbon Dioxide 31 mmol/L (22-29); Chloride 106 mmol/L (96-108); Estimated Glomerular Filt Rate > 60; Glucose Random 113 mg/dL (60-115); Potassium 4.5 mmol/L (3.3-5.1); SLIDE REVIEW VERIFIED; Sodium 144 mmol/L (135-145); Total Protein 7.3 g/dL (6.5-8.0)
[2023-08-29 09:13] LABS: Ferritin 40 ng/mL (20-250)
[2023-08-29 09:27] LABS: Folate 9.2 ng/mL (> or = 4.0); Vitamin B12 721 pg/mL (200-900)
[2023-08-30 17:33] LABS: Lyme Abs Screen <0.90 index
[2023-09-02 15:19] LABS: Vitamin B1 12 nmol/L (8-30)
[2023-09-02 15:59] LABS: Zinc 90 mcg/dL (60-130)
[2023-09-04 12:54] LABS: Histamine Plasma <1.5 ng/mL (< OR = 1.8)
== END 2023-08-29 08:05 | disposition home or self-care (01) ==
LOC: HO.XRAY 08:04
PROVIDERS: PCP Family Medicine; Visit Provider Internal Medicine Gastroenterology
DX: K75.81 Nonalcoholic steatohepatitis (NASH) (principal); R10.13 Epigastric pain; K21.9 Gastro-esophageal reflux disease without esophagitis; T78.40XA Allergy, unspecified, initial encounter; E46 Unspecified protein-calorie malnutrition
CPT/HCPCS: 36415; 74018; 80053; 82607; 82728; 82746; 83088; 84425; 84630; 85025; 86003; 86140; 86617; 86618

== ENCOUNTER 2023-09-11 10:54 | Outpatient (REF) | payer MEDICAID, SELFPAY ==
[2023-09-12 08:22] LABS: Syphilis Screen Nonreactive (Nonreactive)
== END 2023-09-11 10:55 | disposition home or self-care (01) ==
LOC: HO.CHCLDS 10:54
PROVIDERS: Visit Provider Family Medicine
DX: L42 Pityriasis rosea (principal)
CPT/HCPCS: 36415; 86780

== ENCOUNTER 2023-09-13 11:39 | Outpatient (REF) | payer MEDICAID, SELFPAY ==
[2023-09-13 13:14] LABS: MANUAL DIFF FLAG NO
[2023-09-13 13:39] LABS: Basophils Percent Auto 0.3 % (0-2); Eosinophils Absolute Auto 0.2 X10*3/uL (0.0-0.4); Eosinophils Percent Auto 3.5 % (0-4); Hematocrit 43.1 % (42.0-52.0); Hemoglobin 14.2 g/dl (14.0-18.0); Imm Gran Abs Auto 0.01 X10*3/uL (0.00-0.03); Imm Gran Pct Auto 0.2 % (0.0-0.4); Lymphocytes Absolute Auto 3.3 X10*3/uL (1.2-4.9); Lymphocytes Percent Auto 55.2 % (20-40); Mean Corpuscular HGB Conc 32.9 g/dl (31.0-36.0); Mean Corpuscular Hemoglobin 30.6 pg (27.0-33.0); Mean Corpuscular Volume 92.9 fL (80.0-98.0); Mean Platelet Volume 9.3 fL (9.4-12.4); Monocytes Absolute Auto 0.4 X10*3/uL (0.1-1.2); Monocytes Percent Auto 6.7 % (2-11); Neutrophils Percent Auto 34.1 % (45-73); Platelet Count 295 X10*3/uL (160-400); Red Blood Count 4.64 X10*6/uL (4.60-5.80); Red Cell Distribution Width 12.7 % (11.0-16.0)
[2023-09-13 13:43] LABS: Alanine Aminotransferase 28 U/L (0-40); Albumin Level 4.1 g/dL (3.5-5.0); Alkaline Phosphatase 93 U/L (39-117); Anion Gap 10 (12-20); Aspartate Amino Transferase 26 U/L (5-37); Bilirubin Total 0.5 mg/dL (0.0-1.0); Blood Urea Nitrogen 14 mg/dL (9-16); C Reactive Protein 0.26 mg/dL (< or = 0.50); Calcium 9.4 mg/dL (8.4-10.2); Carbon Dioxide 28 mmol/L (22-29); Chloride 109 mmol/L (96-108); Estimated Glomerular Filt Rate > 60; Glucose Random 101 mg/dL (60-115); Potassium 3.7 mmol/L (3.3-5.1); Sodium 143 mmol/L (135-145)
[2023-09-13 14:43] LABS: Erythrocyte Sedimentation Rate 4 MM/HR (0-15)
== END 2023-09-13 11:40 | disposition home or self-care (01) ==
LOC: HO.10HDL 11:39
PROVIDERS: Visit Provider Nurse Practitioner Family
DX: L40.50 Arthropathic psoriasis, unspecified (principal); M53.3 Sacrococcygeal disorders, not elsewhere classified
CPT/HCPCS: 36415; 80053; 85025; 85652; 86140

== ENCOUNTER → 2023-09-27 10:54 | Outpatient (BNVA) | payer MEDICAID, SELFPAY | PROVIDERS: PCP Family Medicine; Visit Provider Internal Medicine Pulmonary Disease ==

== ENCOUNTER 2023-09-29 09:54 | Outpatient (AMB) | payer MEDICAID, SELFPAY ==
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
[2023-09-29 10:11] VITALS: BP 110/78; BMI 32.4
== END 2023-09-29 11:10 | disposition home or self-care (01) ==
PROVIDERS: PCP Family Medicine; Visit Provider Nurse Practitioner Family
DX: M54.2 Cervicalgia (principal); R51.9 Headache, unspecified
CPT/HCPCS: 99214

== ENCOUNTER → 2023-09-29 09:54 | Outpatient (BNVA) | payer MEDICAID, SELFPAY | PROVIDERS: PCP Family Medicine; Visit Provider Nurse Practitioner Family | DX: M54.2 Cervicalgia (principal); R51.9 Headache, unspecified | CPT/HCPCS: 99212 ==

== ENCOUNTER 2023-10-12 12:44 | Outpatient (AMB) | payer MEDICAID, SELFPAY ==
[2023-10-12 13:07] VITALS: BP 98/62; PULSE 74; O2SAT 97; BMI 33.5
--- NOTE | 2023-10-12 13:07 | MHC.OFFVIS ---
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 After the last office visit he had completed his cardiopulmonary stress test that showed essentially no underlying pulmonary or cardiac limitation, but possible upper airway component. [facility] Medical History Asthma Avascular necrosis Chronic pain Chronic pain syndrome Degeneration, intervertebral disc, cervical Depression Dysphagia Fatty liver HTN (hypertension) Hx of chest pain Hypothyroid Kidney cysts Lipoma of scalp Mood disorder DAYNA on CPAP Pre-diabetes Psoriasis Psoriatic arthritis Schatzki's ring 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 Spondylosis, cervical Surgical History History of back surgery History of surgery Status post excision of lipoma (~10/21/21) Status post cardiac catheterization Hx of cardiac cath H/O neck surgery Hx of hand surgery Hx of endoscopy History of colonoscopy Family History Father Cirrhosis Alcoholism Mother Diabetes HTN (hypertension) Parkinson disease Brother Cirrhosis Alcoholism Social History Household Members: Spouse and Children Are you a primary medicare contact specialist to a significant other at home: No Do you presently have visiting nurse or other home services: No Alcohol intake: never Patient Tobacco Use Status: Former Tobacco user Tobacco use type: Cigarette Second Hand Smoke Exposure: No Current occupational status: disabled Current occupation: rt handed Review of Systems Const Denies daytime sleepiness, Denies excessive sweating, Denies fatigue, Denies fever(s), Denies lethargy, Denies malaise, Denies night sweats, Denies snoring and Denies weight loss Eyes Denies blurry vision and Denies itchy eyes ENT Denies nasal congestion, Denies post nasal drip, Denies sinus pain, Denies sinus pressure and Denies other ( Thrush) Card Denies chest pain, Denies pedal edema, Denies dyspnea, Reports dyspnea on exertion, Denies orthopnea and Denies paroxysmal nocturnal dyspnea Resp Denies cough, Denies hemoptysis, Denies excessive phlegm production, Denies dyspnea, Reports dyspnea on exertion, Denies snoring and Denies wheezing GI Denies abdominal pain and Denies heartburn Musc Denies myalgias, Denies arthralgias and Denies joint swelling Skin/Breast Denies rash Neuro Denies memory loss and Denies seizure-like activity Psych Denies abnormal sleep pattern, Denies anxiety and Denies memory loss Endo Denies excessive sweating, Denies fatigue and Denies heat intolerance Daniel/Lymph Denies easy bruising Aller/Immun Denies itchy eyes, Denies seasonal rhinorrhea and Denies wheezing Physical Exam Vital Signs: Last Vital Signs Pulse 74 10/12/23 13:07 BP 98/62 10/12/23 13:07 Pulse Ox 97 10/12/23 13:07 Oxygen Delivery Method Room Air 10/12/23 13:07 BMI result Body Mass Index 33.5 Const General: no acute distress and alert Nutritional Appearance: not obese Orientation/consciousness: Other orientation findings ( oriented) HEENT Head: Yes atraumatic Eyes General: appearance normal, both eyes and all related structures Sclerae: sclerae normal EOM: EOMs intact bilaterally Neck Neck: Yes supple Lymphatic: no lymphadenopathy noted Resp Effort & Inspection: normal respiratory effort and no use of accessory muscles Auscultation: clear to auscultation bilaterally Cardio Rate: regular rate Rhythm: regular rhythm Heart sounds: no gallops, no murmurs and no rubs Skin General skin exam: other ( warm) Extrem General: No clubbing, No cyanosis and No edema Assessment & Plan Assessment & Plan (1) Upper airway obstruction due to foreign body: Code(s): T17.900A - Unspecified foreign body in respiratory tract, part unspecified causing asphyxiation, initial encounter Plan: Will obtain neck soft tissue CT for further evaluation. (2) Dyspnea: Code(s): R06.00 - Dyspnea, unspecified Plan: Results of pulmonary exercise test reviewed, no noted underlying cardiac or pulmonary limitation. (3) DAYNA (obstructive sleep apnea): Comment: On CPAP. Code(s): G47.33 - Obstructive sleep apnea (adult) (pediatric) Plan: Well controlled on current CPAP therapy. Continue CPAP therapy. Orders: Orders CT soft tissue neck w IV con Today T17.900A - Unspecified foreign body in respiratory tract, part unspecified causing asphyxiation, initial encounter Coding Level of Care Code Est Pt Level 4 (64553) Diagnoses Upper airway obstruction due to foreign body T17.900A Dyspnea R06.00 DAYNA (obstructive sleep apnea) G47.33
== END 2023-10-12 13:28 | disposition home or self-care (01) ==
PROVIDERS: PCP Family Medicine; Referring Provider Family Medicine; Visit Provider Internal Medicine Pulmonary Disease
DX: T17.900A Unspecified foreign body in respiratory tract, part unspecified causing asphyxiation, initial encounter (principal); R06.00 Dyspnea, unspecified; G47.33 Obstructive sleep apnea (adult) (pediatric)
CPT/HCPCS: 99214

== ENCOUNTER → 2023-10-12 12:44 | Outpatient (BNVA) | payer MEDICAID, SELFPAY | PROVIDERS: PCP Family Medicine; Visit Provider Internal Medicine Pulmonary Disease | DX: G47.33 Obstructive sleep apnea (adult) (pediatric) (principal); R06.00 Dyspnea, unspecified; T17.900D Unspecified foreign body in respiratory tract, part unspecified causing asphyxiation, subsequent encounter | CPT/HCPCS: 99212 ==

== ENCOUNTER 2023-10-18 11:07 | Outpatient (AMB) | payer MEDICAID, SELFPAY ==
--- NOTE | 2023-10-18 11:15 | MHC.OFFVIS ---
Intake Vital Signs 10/18/23 11:28 Height 5 ft 2 in Weight 175 lb 7.807 oz BMI 32.1 BP 120/72 Blood Pressure Location Lt brachial Position Sitting Pulse 78 Pulse Source Pulse Oximeter Temp 97.7 F Temp Source Skin Pulse Oximetry (%) 94 Oxygen Delivery Method Room Air Intake Visit Reasons: PSA Intake Note: Patient last seen 06/15/[address] Jung, presents today for follow up and test results. c/o right shoulder blade pain c/o right leg swelling Reports noticing bumps on leg. Computer Forensics Technician Required: Yes Computer Forensics Technician Language: Material Clerk Name: Jose Alejandro [id number] Information Interpreted: clinical only Accompanied by: Spouse Allergies No Known Allergies [No Known Allergies*] Allergy (Verified 10/18/23 11:15) HPI HPI Comments History of Present Illness Details Mr. Elkins 58 yoM, accopmpanied by his Juanita, returns to Rheumatology for follow-up of his psoriatic arthritis with PsO and fibromyalgia. The visit is facilitated through the iPad translating device. He also is followed in Pain Management for lumbar osteoarthritis and has received various procedures and injections for that problem. He demonstrates that he has pain that radiates from his lower back to his ankle on the right side. It is especially tender at the glutes. He showed some raised areas that are tender on his lower leg ans states they have been painful for the las 2 years. He remains on Enbrel 50 mg once a week. His overall widespread pains in muscles, bones and joints continues about the same. He has not really seen any swollen joints. He does take ibuprofen 600 mg 3 times a day, daily lidocaine patch, and nighttime amitriptyline. These meds are somewhat helpful. He denies any side effects with his medication. For anxiety and depression he remains on BuSpar and escitalopram. 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 Venous congestion Pain in right lower leg Lipoma of scalp Kidney cysts Spondylosis of thoracic spine Spondylosis of lumbar spine Schatzki's ring Fatty liver HTN (hypertension) Pre-diabetes Dysphagia Asthma Hx of chest pain DAYNA on CPAP Hypothyroid Psoriasis Psoriatic arthritis Chronic pain Mood disorder Depression Avascular necrosis Chronic pain syndrome Spondylosis of lumbar region without myelopathy or radiculopathy Spondylosis, cervical Degeneration, intervertebral disc, cervical Surgical History History of back surgery History of surgery Status post excision of lipoma (~10/21/21) Status post cardiac catheterization Hx of cardiac cath H/O neck surgery Hx of hand surgery Hx of endoscopy History of colonoscopy Family History Father Cirrhosis Alcoholism Mother Diabetes HTN (hypertension) Parkinson disease Brother Cirrhosis Alcoholism Social History Household Members: Spouse and Children Are you a primary managed care analyst to a significant other at home: No Do you presently have visiting nurse or other home services: No Alcohol intake: never Patient Tobacco Use Status: Former Tobacco user Tobacco use type: Cigarette Second Hand Smoke Exposure: No Current occupational status: disabled Current occupation: rt handed Review of Systems Const All systems reviewed & are unremarkable except as noted in HPI and below Physical Exam Vital Signs: Last Vital Signs Temp 97.7 F 10/18/23 11:28 Pulse 78 10/18/23 11:28 BP 120/72 10/18/23 11:28 Pulse Ox 94 10/18/23 11:28 Oxygen Delivery Method Room Air 10/18/23 11:28 BMI result Body Mass Index 32.1 APPEARANCE: Patient in no acute distress EYES: no redness, pupils equal and reactive to light, eyelids normal. No temporal artery tenderness, redness or swelling. EXTREMITIES: No edema, no calf tenderness, normal peripheral pulses. NEURO: Oriented and alert x3. No focal weakness. Uses cane. SKIN: Ridging of nail noted right thumb (hx of crush injusry to this hand). No inflammatory or neoplastic lesions. Normal color and turgor. 2 areas of raised subcutaneous lumps to righ lower leg laterally JOINT EXAM: Cervical Spine:? Pain reported with flexion, extension, left rotation, right rotation, right lateral flexion and left lateral flexion. Also tenderness reported to palpation of the cervical spine. Widespread diffuse pain to palpation throughout. Thoracic Spine: Diffuse tenderness to palpation throughout Lumbar Spine:? Alignment normal.? Full range of motion, able to fully flex with pain. Tenderness to palpation of the lumbar spine and lumbar spinal muscles. Widespread diffuse tenderness to palpation throughout the spine. Hands: Normal pain-free range of motion. There is some minimal slightly tender bony enlargement at the 2nd, 3rd and 5th D IP joints bilaterally. No other swelling, increased warmth or erythema. Able to make a full fist and has a good ux designer strength. Widespread diffuse tenderness to palpation throughout the hands. Wrists: LEFT: Normal pain-free range of motion without swelling, increased warmth or erythema. Widespread diffuse tenderness to palpation throughout. RIGHT: Slightly limited flexion and extension (chronic per patient report after injury to the right wrist hand in 1994). No swelling increased warmth or erythema. Widespread diffuse tenderness to palpation throughout. Elbows: Normal pain-free range of motion without tenderness, swelling, increased warmth or erythema. Widespread diffuse tenderness to palpation over the biceps and down both forearms. Shoulders:? Full range of motion. No weakness, swelling, increased warmth or erythema. Widespread diffuse pain to palpation. Hips:? Full range of motion, slight pain with abduction bilaterally, pain is reported in the groin. Hip bursa:? No tenderness. Knees:?? Normal pain-free range of motion. No swelling, increased warmth or erythema.? There is slight patellofemoral crepitus but no effusion appreciated. Bilateral medial and lateral compartment tenderness. Widespread diffuse pain to palpation down both shins. Ankles: Normal pain-free range of motion without tenderness, swelling, increased warmth or erythema. Feet: Normal range of motion without swelling, increased warmth or erythema. Widespread diffuse tenderness to palpation throughout both feet. Tender points: Tenderness to digital palpation at the occiput, trapezius, second rib, lateral epicondyle, knees, greater trochanter and gluteal area bilaterally. ? Office Procedures Joint Injection/Drain Joint Injection/Drain Primary Site: other Prep: site was prepped using aseptic technique and injection warnings given Injected: 40 mg of, Kenalog, with 1 mL of and 1% plain lidocaine Approach Used: anterior Procedure: The patient tolerated the procedure well Coding 34772 - Sternocleidomastoid/Piriformis Procedure code (CPT) selection complete Results Reviewed Results Reviewed: Laboratory Tests 09/13/23 11:45 ESR 4 C-Reactive Protein 0.26 Assessment & Plan Assessment & Plan (1) Psoriasis: Code(s): L40.9 - Psoriasis, unspecified (2) Psoriatic arthritis: Comment: Methotrexate: dates unknown Enbrel: 06/2019-present Code(s): L40.50 - Arthropathic psoriasis, unspecified (3) 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: Code(s): M47.27 - Other spondylosis with radiculopathy, lumbosacral region (4) Long-term use of immunosuppressant medication: Code(s): Z79.60 - coat repair inspector (current) use of unspecified immunomodulators and immunosuppressants (5) Piriformis syndrome of right side: Code(s): G57.01 - Lesion of sciatic nerve, right lower limb (6) Pain in right lower leg: Code(s): M79.661 - Pain in right lower leg (7) Venous congestion: Code(s): I87.8 - Other specified disorders of veins Plan #PsO/PsA: The exam does not reveal signs of an active inflammatory arthritis from his psoriatic arthritis. Excpet for a pencil eraserr size lesion on the left lower leg laterally, I do not see any signs of psoriasis presently. It is reasonable to say that the Enbrel 50 mg QW, seems to be helping him. We will continue with Enbrel and we would recheck him in 4 months. #Lumbar Spondylosis/Right Sciatica/Right Piriformis Pain:His more problematic area in the lower back is consistent with some lumbar osteoarthritis. He describes pain that radiates down to his ankle on the right and makes it difficult to walk, sleep. Given the marked tenderness to the piriformis region it seems resaonable to given him an injection with the goal to reduce the inflammation in the area. #Pain Right Lower Leg/Venous Congestion: On Exam there are two subcutaneous lumps that appear as venous congestion. The patient states they are very tender when I palpate. The lower leg skin is more taut the the opposite leg with some swelling. He states he has had it for over 1 year and the lumps have gotten bigger and tender. He denies prior imaging. I will do an ultrasound to assess for clots and cause. #Snf Use of Enbrel: Discussed with patient that he should stop taking Enbrel if he develops signs or symptoms of an infection such as fevers. He should aslo call the office if he has a wound that does not heal. We will continue to monitor for blood dyscrasias with repeated labs. #Left Hip AVN:He has some abnormality in the left hip consistent with healing avascular necrosis per imaging. Per patient Ortho told him to return if having pain. #Fibromyalgia:The patient has longstanding musculoskeletal pains. With the many tender points also his pain syndrome is consistent with fibromyalgia. I have spent 40 minutes reviewing chart, evaluating patient, and documenting. Orders: Orders US arterial duplex LE RT Today I87.8 - Other specified disorders of veins, M79.661 - Pain in right lower leg Erythrocyte Sedimentation Rate 4 Months L40.50 - Arthropathic psoriasis, unspecified, L40.9 - Psoriasis, unspecified Complete Blood Count Auto Diff 4 Months L40.50 - Arthropathic psoriasis, unspecified, L40.9 - Psoriasis, unspecified Comprehensive Met. Panel 4 Months L40.50 - Arthropathic psoriasis, unspecified, L40.9 - Psoriasis, unspecified AMB Joint Injection/Aspiration Today G57.01 - Lesion of sciatic nerve, right lower limb C Reactive Protein 4 Months L40.50 - Arthropathic psoriasis, unspecified, L40.9 - Psoriasis, unspecified Coding Level of Care Code Est Pt Level 4 (14227) Diagnoses Psoriasis L40.9 Psoriatic arthritis L40.50 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 M47.27 Long-term use of immunosuppressant medication Z79.60 Piriformis syndrome of right side G57.01 Pain in right lower leg M79.661 Venous congestion I87.8 CPT Codes Coding - Joint 3: 50637 - Sternocleidomastoid/Piriformis ([id number])
[2023-10-18 11:28] VITALS: BP 120/72; PULSE 78; TEMP 36.5; O2SAT 94; BMI 32.1
== END 2023-10-18 12:05 | disposition home or self-care (01) ==
PROVIDERS: PCP Family Medicine; Visit Provider Nurse Practitioner Family
DX: L40.50 Arthropathic psoriasis, unspecified (principal); L40.9 Psoriasis, unspecified; M47.27 Other spondylosis with radiculopathy, lumbosacral region; Z79.60 Long term (current) use of unspecified immunomodulators and immunosuppressants; G57.01 Lesion of sciatic nerve, right lower limb; M79.661 Pain in right lower leg; I87.8 Other specified disorders of veins
CPT/HCPCS: 20552; 99215

== ENCOUNTER → 2023-10-18 11:07 | Outpatient (BNVA) | payer MEDICAID, SELFPAY | PROVIDERS: PCP Family Medicine; Visit Provider Nurse Practitioner Family | DX: L40.50 Arthropathic psoriasis, unspecified (principal); L40.9 Psoriasis, unspecified; G57.01 Lesion of sciatic nerve, right lower limb; M47.27 Other spondylosis with radiculopathy, lumbosacral region; M79.661 Pain in right lower leg; I87.8 Other specified disorders of veins; Z79.60 Long term (current) use of unspecified immunomodulators and immunosuppressants | CPT/HCPCS: 20552; 99212 ==

== ENCOUNTER 2023-11-16 09:26 | Outpatient (REF) | payer MEDICAID, SELFPAY ==
--- NOTE | ~2023-11-16 | CT_ITS ---
EXAMINATION: CT SOFT TISSUE NECK WITH CONTRAST CLINICAL INFORMATION: Patient states trouble swallowing. Unspecified foreign body in respiratory tract. COMPARISON: CT scan of the neck 06/05/2023. TECHNIQUE: Following the intravenous administration of 60 mL of Omnipaque 350 intravenous contrast, helical imaging was performed in the axial plane with generation of coronal and sagittal reformatted images. This CT examination was performed using dose optimization techniques as appropriate, variously including the following: *Automated exposure control *Adjustment of mA and/or kV according to patient size (this includes techniques or standardized protocols for targeted exams where dose is matched to indication/reason for exam; i.e. extremities or head) *Use of iterative reconstruction technique DLP: 278 mGy-cm FINDINGS: There is no cervical lymphadenopathy. There are small lymph nodes at multiple levels in the neck bilaterally. The parotid glands have homogenous attenuation. There is some accessory parotid tissue over the masseter muscles bilaterally. The submandibular glands appear normal. No contour abnormality is seen within the oral cavity or pharyngeal mucosal space. There is a relatively well-defined area of enhancement in the right floor of mouth, which may be consistent with a varix; this is unchanged. The laryngeal structures are normal. The parapharyngeal fat is preserved. The carotid sheath vasculature opacifies normally. No extra mucosal soft tissue mass or fluid collection is seen. No retropharyngeal fluid collection is seen. The thyroid gland is normal in size. There is a common origin of the left common carotid and brachiocephalic arteries off the aortic arch which is a normal variant. There is no mediastinal lymphadenopathy. The lung apices are clear the mastoid air cells are extensively pneumatized extending over the glenoid roofs bilaterally they appear clear. There is mucoperiosteal thickening in the inferior right maxillary sinus, similar compared to prior imaging. The temporomandibular joints are normal. No periapical disease is identified. There are unerupted bilateral maxillary 3rd molar teeth. The study redemonstrates the sequelae of the ACDF at C5-C6 and C6-C7. There is marked narrowing of intervertebral disc height with endplate destructive changes at C4-C5 similar compared to prior imaging. The imaged portions of the brain parenchyma are unremarkable. CT/CT soft tissue neck w IV con IMPRESSION: 1. There is no cervical lymphadenopathy. No masses are demonstrated in the neck. 2. The study redemonstrates the sequelae of the ACDF at C5-C6 and C6-C7. There is marked narrowing of intervertebral disc height at C4-C5. 3. There is a relatively well-defined area of enhancement in the right floor of mouth, which may be consistent with a varix; this is unchanged.
[2023-11-16] MEDS: iohexoL 350 MG/ML 75 ML INFUS..BTL 60 ML IV (10:22)
[2023-11-17 07:08] LABS: GFR POC > 60
== END 2023-11-16 09:27 | disposition home or self-care (01) ==
LOC: HO.CT 09:26
PROVIDERS: PCP Family Medicine; Visit Provider Internal Medicine Pulmonary Disease
DX: T17.900A Unspecified foreign body in respiratory tract, part unspecified causing asphyxiation, initial encounter (principal)
CPT/HCPCS: 70491; 82565; Q9967

== ENCOUNTER 2023-11-30 13:16 | Outpatient (AMB) | payer MEDICAID, SELFPAY ==
[2023-11-30 13:22] VITALS: BP 102/67; PULSE 88; O2SAT 97; BMI 31.8
--- NOTE | 2023-11-30 13:22 | MHC.OFFVIS ---
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 Unfortunately, patient can tolerate CPAP therapy. After the last office visit he had completed his cardiopulmonary stress test that showed essentially no underlying pulmonary or cardiac limitation, but possible upper airway component. CT neck soft tissue was obtained in essentially normal. Patient continues to complain of significant dyspnea exertion. 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 Venous congestion Pain in right lower leg Lipoma of scalp Kidney cysts Spondylosis of thoracic spine Spondylosis of lumbar spine Schatzki's ring Fatty liver HTN (hypertension) Pre-diabetes Dysphagia Asthma Hx of chest pain DAYNA on CPAP Hypothyroid Psoriasis Psoriatic arthritis Chronic pain Mood disorder Depression Avascular necrosis Chronic pain syndrome Spondylosis of lumbar region without myelopathy or radiculopathy Spondylosis, cervical Degeneration, intervertebral disc, cervical Surgical History History of back surgery History of surgery Status post excision of lipoma (~10/21/21) Status post cardiac catheterization Hx of cardiac cath H/O neck surgery Hx of hand surgery Hx of endoscopy History of colonoscopy Family History Father Cirrhosis Alcoholism Mother Diabetes HTN (hypertension) Parkinson disease Brother Cirrhosis Alcoholism Social History Household Members: Spouse and Children Are you a primary child care associate teacher to a significant other at home: No Do you presently have visiting nurse or other home services: No Alcohol intake: never Patient Tobacco Use Status: Former Tobacco user Tobacco use type: Cigarette Second Hand Smoke Exposure: No Current occupational status: disabled Current occupation: rt handed Review of Systems Const Denies daytime sleepiness, Denies excessive sweating, Denies fatigue, Denies fever(s), Denies lethargy, Denies malaise, Denies night sweats, Denies snoring and Denies weight loss Eyes Denies blurry vision and Denies itchy eyes ENT Denies nasal congestion, Denies post nasal drip, Denies sinus pain, Denies sinus pressure and Denies other ( Thrush) Card Denies chest pain, Denies pedal edema, Denies dyspnea, Reports dyspnea on exertion, Denies orthopnea and Denies paroxysmal nocturnal dyspnea Resp Denies cough, Denies hemoptysis, Denies excessive phlegm production, Denies dyspnea, Reports dyspnea on exertion, Denies snoring and Denies wheezing GI Denies abdominal pain and Denies heartburn Musc Denies myalgias, Denies arthralgias and Denies joint swelling Skin/Breast Denies rash Neuro Denies memory loss and Denies seizure-like activity Psych Denies abnormal sleep pattern, Denies anxiety and Denies memory loss Endo Denies excessive sweating, Denies fatigue and Denies heat intolerance Daniel/Lymph Denies easy bruising Aller/Immun Denies itchy eyes, Denies seasonal rhinorrhea and Denies wheezing Physical Exam Vital Signs: Last Vital Signs Pulse 88 11/30/23 13:22 BP 102/67 11/30/23 13:22 Pulse Ox 97 11/30/23 13:22 Oxygen Delivery Method Room Air 11/30/23 13:22 BMI result Body Mass Index 31.8 Const General: no acute distress and alert Nutritional Appearance: not obese Orientation/consciousness: Other orientation findings ( oriented) HEENT Head: Yes atraumatic Eyes General: appearance normal, both eyes and all related structures Sclerae: sclerae normal EOM: EOMs intact bilaterally Neck Neck: Yes supple Lymphatic: no lymphadenopathy noted Resp Effort & Inspection: normal respiratory effort and no use of accessory muscles Auscultation: clear to auscultation bilaterally Cardio Rate: regular rate Rhythm: regular rhythm Heart sounds: no gallops, no murmurs and no rubs Skin General skin exam: other ( warm) Extrem General: No clubbing, No cyanosis and No edema Assessment & Plan Assessment & Plan (1) Dyspnea: Code(s): R06.00 - Dyspnea, unspecified Plan: Unclear etiology this time essentially negative pulmonary and cardiac workup. Will refer for 2nd opinion. (2) DAYNA (obstructive sleep apnea): Comment: On CPAP. Code(s): G47.33 - Obstructive sleep apnea (adult) (pediatric) Plan: Patient states that he does not derive much symptomatic benefit in her would like to stop using CPAP at this time. Patient has been advised on other possible options in DAYNA treatment including dental appliance. Orders: Referrals Pulmonary Medicine Referral R06.09 - Other forms of dyspnea Coding Level of Care Code Est Pt Level 4 (12346) Diagnoses Dyspnea R06.00 DAYNA (obstructive sleep apnea) G47.33
== END 2023-11-30 13:53 | disposition home or self-care (01) ==
PROVIDERS: PCP Family Medicine; Visit Provider Internal Medicine Pulmonary Disease
DX: R06.00 Dyspnea, unspecified (principal); G47.33 Obstructive sleep apnea (adult) (pediatric)
CPT/HCPCS: 99214

== ENCOUNTER → 2023-11-30 13:16 | Outpatient (BNVA) | payer MEDICAID, SELFPAY | PROVIDERS: PCP Family Medicine; Visit Provider Internal Medicine Pulmonary Disease | DX: G47.33 Obstructive sleep apnea (adult) (pediatric) (principal); R06.00 Dyspnea, unspecified | CPT/HCPCS: 99212 ==

== ENCOUNTER 2023-12-03 09:38 | Outpatient (REF) | payer MEDICAID, SELFPAY ==
--- NOTE | ~2023-12-03 | MR_ITS ---
EXAMINATION: MR BRAIN WITHOUT CONTRAST CLINICAL INFORMATION: Headaches. COMPARISON: None. TECHNIQUE: Multiplanar, multisequence imaging of the brain was performed without contrast. FINDINGS: No diffusion abnormalities are identified to suggest an acute infarct. The ventricles are normal in size. No mass effect or midline shift is seen. No brain parenchymal signal abnormality is noted. No extra-axial fluid collections are seen. The brainstem and cerebellum are normal. The gradient refocused acquisition demonstrates no pathologic magnetic susceptibility artifact to indicate underlying acute or chronic blood products. The craniovertebral junction, marrow signal, and midline structures are normal. The major intracranial flow voids at the level of the [place] of Das are preserved. The dural venous sinus flow voids are maintained. The mastoid air cells are well aerated. There is mild mucosal thickening in the ethmoid air cells and dependently in the maxillary sinuses, more so on the right side. Sigmoidal-shaped nasal septal deviation noted. Moderate degenerative disc disease partially visualized at the C4-C5 level. There is hypertrophic facet arthropathy at the C3-C4 level where there is a minimal anterolisthesis. MR/MR head/brain wo con IMPRESSION: No acute intracranial process. Normal MRI of the brain. Upper cervical spondylosis.
== END 2023-12-03 09:39 | disposition home or self-care (01) ==
LOC: HO.MRI 09:38
PROVIDERS: PCP Family Medicine; Visit Provider Nurse Practitioner Family
DX: R51.9 Headache, unspecified (principal)
CPT/HCPCS: 70551

== ENCOUNTER 2023-12-07 12:00 | Outpatient (RCR) | payer MEDICAID, SELFPAY ==
--- NOTE | 2023-10-18 12:37 | MHC.PT.EP ---
[facility] [place] Office [place] Office [place] Office [address] Anant Wright [address] [phone] F: [phone] F: [phone] F: [phone] F: [phone] Physical Therapy Plan of Care Date of Evaluation: 10/17/23 Date of Surgery: 3 years Diagnosis: Other cervical disc degeneration, unspecified cervical region Cervicalgia Assessment: Pt is a pleasant 58yo M who presents to PT with chronic neck pain. Pt has history of cervical fusion ~3 years ago. Pt presents to PT with current impairments in pain, decreased cervical ROM, decreased strength, soft tissue restrictions, and impaired posture. He is limited functionally by looking down, looking up, cervical rotation, prolonged sitting, and sleeping. He is an excellent candidate for skilled PT in order to address current impairments to facilitate return to PLOF. He is recommended to be seen 2x/week for 4 weeks and will be reassessed at that time Frequency and Duration: The patient will be seen 2x/week for 4 weeks Short Term Goals: Pt will be I with HEP to promote self management of symptoms Pt will improve B cervical rotation by at least 10 degrees Senior Living Goals: Pt will achieve ROM WFL all planes of cervical spine to assist with ADLs Pt will demonstrate improvements in function as evidenced by statistically significant improvement in Neck Pain and Disability Index Questionnaire Treatment Plan: Modalities to reduce pain, spasms and effusion. Manual therapy to restore motion and function. Therapeutic exercise to improve strength and flexibility. Neuromuscular re-education for posture and balance. Therapeutic activities to return to functional activities of daily living. Electronically signed by: Leah Miranda, PT, DPT Please sign and return to therapist. Thank you for your referral.
--- NOTE | 2023-12-07 14:44 | MHC.PT.DC ---
[facility] [place] Office [place] Office [place] Office [address] Anant Wright [address] [phone] F: [phone] F: [phone] F: [phone] F: [phone] Physical Therapy Discharge Report Diagnosis: Other cervical disc degeneration, unspecified cervical region Cervicalgia Date of Surgery: 3 years Date of Evaluation: 10/17/23 Date of Discharge: 12/07/23 Treatments to Date: 12 Cancellations to Date: No Shows to Date: Discharge Status: Improved Function Independent with HEP Discharge Summary: Pt has made fair progress since SOC. He has met his STGs and made progress toward his LTGs. He has improved most planes of cervical ROM and has had reports of decreased intensity of pain however he continues to have ongoing pain. He has improved his score on Modified Oswestry Low Back Pain Disability Index Questionnaire from 44/50 on initial PT evaluation to 38/50 today. He demonstrates independence with HEP. He has reached a functional plateau with skilled PT at this time. He is being D/C to HEP. Provided pt with printed, updated copy of HEP. No further questions or concerns reported to PT at D/C Electronically signed by: Leah Miranda, PT, DPT Please sign and return to therapist. Thank you for your referral.
== END 2023-12-07 14:42 | disposition home or self-care (01) ==
LOC: HO.PT 12:00
PROVIDERS: PCP Family Medicine; Visit Provider Nurse Practitioner Family
DX: M50.30 Other cervical disc degeneration, unspecified cervical region (principal)
CPT/HCPCS: 97110; 97112; 97140; 97162

== ENCOUNTER 2023-12-25 08:43 | Outpatient (AMB) | payer MEDICAID, SELFPAY ==
--- NOTE | 2023-12-25 08:51 | A.OFFVIS_ITS ---
Intake Vital Signs 12/25/23 08:54 Height 5 ft 2 in Weight 176 lb 5.917 oz BMI 32.3 BP 132/79 Blood Pressure Location Lt brachial Position Sitting Pulse 77 Intake Visit Reasons: 4 months follow up Intake Note: Kvng presents in the office as a 4 month follow up. CC: When he eats he gets bloated and pains in his epigastric region. He has problems with his esophagus and has trouble swallowing! Development Professional Required: Yes Allergies No Known Allergies [No Known Allergies*] Allergy (Verified 12/25/23 08:54) HPI 4 months follow up HPI Details 58 yr old m here for f/u RECAP: [place] [facility] [place] c/o tightness in his throat, been on protonix for GERD, well controlled anxiety regarding swallowing and fear of choking but not actually choking. he had been told he has prominent spur in the neck which maybe causing his symptoms by his neurosurgeon CT 2018--fatty liver, liver cyst, bilobed and septated Ba swallow with prominent cricopharyngeal sphincter EGD --: LA grade A esophagitis, schatzki ring, balloon dilation w tear noted, antral erosive gastritis, bulbar duodenitis reflux changes on bx he was still c/o sx at f/u with saliva choking him, tightness PCP ordered us and pos for fatty liver, LFT have been normal. he can swallow food without any issue except for one occasion 4 d felt like some sfood stuck in stomach still taking carafate and pantopRAZOLE, feels doesn't help him seeing pain management for hip I ordered cardiac eval due to SOB,this was neg RAST testing neg OTHER DATA-- MBS ---unremarkable MRI--10/2020--Fatty liver. Several liver cysts, largest a minimally complex cyst measuring 4.5 x 3.6 cm in the right lobe of the liver. 1 cm probable complex cyst in the lower pole of the left kidney. Diverticulosis of the colon. repeat MRI 04/2021--dominant cyst central right lobe with circumscribed macrolobulated margins is without significant change in size, measuring 4.6 x 3.8 x 4.5 cm on current study. Prior measureme nt is 4.4 x 3.7 x 4.4 cm on MR 10/28/2020 and 3.9 x 3.2 x [address] a bdomen 07/18/2019, (both prior exams remeasured in same orientation). No solid component or visible septation. EGD with dilation 05/06/21 Impression/Findings: schatzki ring esophagitis gastritis duodenitis maybe due to medications i.e CCB, SSRI GES 08/2021-- nml emptying at 4 hrs He had a lot of mucous and sputum and I had given him loratadine, pepcid A rept MRI was ordered 08/26/22 with stable liver and renal cysts Ba swallow with tab 09/2022 w/o stricture, some dysmotility noted US: 01/2023-- liver cyst and small kidney cysts, fatty liver, mild raised elastography CT 02/28- liver cysts were stable, no acute path (this CT was ordered by ED) KUB: 08/31-- moderate constipation INTERIM: He has been having some spam type pain in epigastric area he feels like food is staying in the throat and not going down he can full even when not eating he is still taking omeprazole, thinks it helps he does admit to hard stools and straining- vaguie about how often he has to go to the bathroom denies nausea and vomiting denies taking nsaid and opiates EXAM: GENERAL: The patient is well developed and nontoxic.-obese VITAL SIGNS:see workflow HEENT: Nonicteric sclerae, PERRLA, EOMI. Oropharynx clear. Moist mucous membranes. Conjunctivae appear well perfused. No thyroid mass. CHEST: Chest wall is tender to touch HEART: Regular rate and rhythm without murmurs. LUNGS: Clear to auscultation bilaterally. ABDOMEN: Soft, positive bowel sounds, tender epigastrium, no organomegaly. pos flank tenderness right side SKIN: maculopapular rash on torso and back, looks like dermatitis NEUROLOGIC: Cranial nerves II-XII intact without motor/sensory deficit. 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 Venous congestion Pain in right lower leg Lipoma of scalp Kidney cysts Spondylosis of thoracic spine Spondylosis of lumbar spine Schatzki's ring Fatty liver HTN (hypertension) Pre-diabetes Dysphagia Asthma Hx of chest pain DAYNA on CPAP Hypothyroid Psoriasis Psoriatic arthritis Chronic pain Mood disorder Depression Avascular necrosis Chronic pain syndrome Spondylosis of lumbar region without myelopathy or radiculopathy Spondylosis, cervical Degeneration, intervertebral disc, cervical Surgical History History of back surgery History of surgery Status post excision of lipoma (~10/21/21) Status post cardiac catheterization Hx of cardiac cath H/O neck surgery Hx of hand surgery Hx of endoscopy History of colonoscopy Family History Father Cirrhosis Alcoholism Mother Diabetes HTN (hypertension) Parkinson disease Brother Cirrhosis Alcoholism Social History Household Members: Spouse and Children Are you a primary resident care manager rn to a significant other at home: No Do you presently have visiting nurse or other home services: No Alcohol intake: never Patient Tobacco Use Status: Former Tobacco user Tobacco use type: Cigarette Second Hand Smoke Exposure: No Current occupational status: disabled Current occupation: rt handed Physical Exam Vital Signs: Last Vital Signs Pulse 77 12/25/23 08:54 BP 132/79 12/25/23 08:54 BMI result Body Mass Index 32.3 Assessment & Plan Assessment & Plan (1) Epigastric abdominal pain: Code(s): R10.13 - Epigastric pain Plan: see above Orders: Orders XR KUB Today R10.13 - Epigastric pain FL barium swallow Today R13.10 - Dysphagia, unspecified Coding Level of Care Code Est Pt Level 4 (78573) Diagnoses Epigastric abdominal pain R10.13
[2023-12-25 08:54] VITALS: BP 132/79; PULSE 77; BMI 32.3
== END 2023-12-25 10:35 | disposition home or self-care (01) ==
PROVIDERS: PCP Family Medicine; Visit Provider Internal Medicine Gastroenterology
DX: R10.13 Epigastric pain (principal)
CPT/HCPCS: 99214

== ENCOUNTER → 2023-12-25 08:43 | Outpatient (BNVA) | payer MEDICAID, SELFPAY | PROVIDERS: PCP Family Medicine; Visit Provider Internal Medicine Gastroenterology | DX: R10.13 Epigastric pain (principal); R13.10 Dysphagia, unspecified | CPT/HCPCS: 99212 ==

== ENCOUNTER 2023-12-31 11:11 | Emergency (ER) | payer MEDICAID, SELFPAY ==
--- NOTE | ~2023-12-31 | CT_ITS ---
EXAMINATION: CT ABDOMEN AND PELVIS WITHOUT CONTRAST CLINICAL INFORMATION: Pain of right flank. COMPARISON: 03/02/2023. TECHNIQUE: Multidetector volumetric imaging was performed from the superior aspect of the liver through the pubic symphysis. Sagittal and coronal reformatted images were obtained on the technologist's workstation. This CT examination was performed using dose optimization techniques as appropriate, variously including the following: *Automated exposure control *Adjustment of mA and/or kV according to patient size (this includes techniques or standardized protocols for targeted exams where dose is matched to indication/reason for exam; i.e. extremities or head) *Use of iterative reconstruction technique DLP: 518 mGy-cm FINDINGS: LUNG BASES: The visualized lower lobes chronically have mosaic attenuation (which suggests air trapping phenomenon) and there appears to be chronic thickening of the bronchial de. No basilar consolidation or pleural effusion. Atherosclerotic calcification of the left anterior descending coronary artery is present. HEPATOBILIARY: Diffuse hepatic steatosis. 4.2 cm simple cyst is present in the right lobe of the liver. A very small cyst is seen in the inferior left lobe. No suspicious hepatic lesion. Gallbladder has a normal appearance. No dilated bile ducts. PANCREAS: No edema, pancreatic ductal dilatation or mass. SPLEEN: Normal. ADRENAL GLANDS: Normal. KIDNEYS AND URETERS: Kidneys have normal size and cortical thickness. No perinephric fluid collection, urolithiasis or hydroureteronephrosis. BLADDER: Normal. BOWEL AND PERITONEUM: Stomach and small bowel are unremarkable. No dilated loops. The appendix is normal. Multiple diverticula of the colon. No overt colonic wall thickening or mesenteric fat stranding. No free fluid or pneumoperitoneum. ABDOMINAL WALL: No acute abnormality. Chronic mild protrusion of fat into proximal inguinal canals. VASCULATURE: Abdominal aorta is normal in caliber. LYMPH NODES: No pathologic sized lymph nodes in the abdomen or pelvis. No inguinal lymphadenopathy. PELVIC VISCERA: Unremarkable. MUSCULOSKELETAL: Mild narrowing of disc space and small vertebral osteophytes at L5-S1. No acute or suspicious osseous abnormality. Chronic osteonecrosis of left femoral head without articular surface collapse. CT/CT abdomen pelvis wo IV con IMPRESSION: * Diffuse hepatic steatosis. * Colonic diverticulosis without evidence of diverticulitis. * No renal stones or hydronephrosis. No specific source of pain is identified. * Chronic osteonecrosis within the left femoral head.
[2023-12-31 11:36] VITALS: BP 131/77; PULSE 82; RESP 18; TEMP 36; O2SAT 98; BMI 30.2
--- NOTE | 2023-12-31 11:36 | ED.GENADULT ---
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 Patient also been having right flank pain radiates down to the right side of the abdomen anteriorly, noticed dark urine But no blood, no blood in the diarrhea. No fever, no recent travel, no sick contacts , no recent use of antibiotic. Last BM was yesterday, passing flatus. No history of intra-abdominal surgery, no history of kidney stones. Related Data Home Medications Medication Instructions Recorded Confirmed albuterol sulfate 90 mcg/actuation 2 puff inhalation Q6H PRN Wheezing 08/10/20 06/15/23 aerosol inhaler (ProAir HFA) escitalopram oxalate 20 mg tablet 20 mg PO DAILY 08/10/20 06/15/23 fluticasone propionate 50 1 spray intranasal DAILY 08/10/20 06/15/23 mcg/actuation nasal spray,suspension buspirone 15 mg tablet 15 mg PO BID 10/27/21 06/15/23 cholecalciferol (vitamin D3) 50 50 mcg PO DAILY 08/05/22 06/15/23 mcg (2,000 unit) tablet epinephrine 0.3 mg/0.3 mL IM DIRECTED 08/05/22 06/15/23 injection, auto-injector lidocaine 5 % topical patch 0 patch topical 08/05/22 06/15/23 (Lidoderm) ibuprofen 600 mg tablet 600 mg PO TID 06/09/23 06/15/23 pregabalin 150 mg capsule 150 mg PO BID 07/28/23 pregabalin 225 mg capsule 225 mg PO BID 09/27/23 Previous Rx's Medication Instructions Recorded fluticasone 250 mcg-salmeterol 50 1 ea PO BID #60 ea 12/12/22 mcg/dose blistr powdr for inhalation (Advair Diskus) levothyroxine 88 mcg tablet 88 mcg PO DAILY #30 tabs 12/27/22 omeprazole 40 mg capsule,delayed 40 mg PO DAILY #90 caps 08/07/23 release polyethylene glycol 3350 17 17 g PO DAILY #510 grams 08/25/23 gram/dose oral powder (Miralax) prednisone 20 mg tablet 40 mg (2 x 20 mg) PO DAILY 3 days 08/25/23 #6 tabs etanercept 50 mg/mL (1 mL) 50 mg subcut QWEEK #4 mL 09/13/23 subcutaneous pen injector (Enbrel SureClick) bumetanide 1 mg tablet 1 mg PO DAILY 30 days #30 tabs 10/05/23 loratadine 10 mg tablet 10 mg PO DAILY #30 tabs 11/16/23 Allergies Allergy/AdvReac Type Severity Reaction Status Date / Time No Known Allergies Allergy Verified 12/31/23 11:36 [No Known Allergies*] Review of Systems Review of Systems: All other systems are reviewed and are negative Constitutional: Reports as per HPI and Reports no additional constitutional complaints Eyes: Reports as per HPI and Reports no additional eye complaints Reports system reviewed and no additional complaints, except as documented Cardiovascular: Reports as per HPI and Reports no additional cardiovascular complaints Respiratory: Reports as per HPI and Reports no additional respiratory complaints Gastrointestinal: Reports as per HPI and Reports no additional gastrointestinal complaints Genitourinary: Reports no additional female genitourinary complaints Musculoskeletal: Reports no additional musculoskeletal complaints Skin/Breast: Reports system reviewed and no additional complaints, except as docu Psychiatric: Reports no additional psychiatric complaints Endocrine: Reports no additional endocrine complaints Hematologic/Lymphatic: Reports no additional hematologic/lymphatic complaints Allergic/Immunologic: Reports no additional allergic/immunologic complaints Reports system reviewed and no additional complaints, except as documented and Reports Abnormal speech present [facility] Past Medical History Medical History Piriformis syndrome of right side Long-term use of immunosuppressant medication 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 Venous congestion Pain in right lower leg Lipoma of scalp Kidney cysts Spondylosis of thoracic spine Spondylosis of lumbar spine Schatzki's ring Fatty liver HTN (hypertension) Pre-diabetes Dysphagia Asthma Hx of chest pain DAYNA on CPAP Hypothyroid Psoriasis Psoriatic arthritis Chronic pain Mood disorder Depression Avascular necrosis Chronic pain syndrome Spondylosis of lumbar region without myelopathy or radiculopathy Spondylosis, cervical Degeneration, intervertebral disc, cervical Surgical History History of back surgery History of surgery Status post excision of lipoma (~10/21/21) Status post cardiac catheterization Hx of cardiac cath H/O neck surgery Hx of hand surgery Hx of endoscopy History of colonoscopy Family History Family History Father Cirrhosis Alcoholism Mother Diabetes HTN (hypertension) Parkinson disease Brother Cirrhosis Alcoholism Social History Social History Household Members: Spouse and Children Are you a primary healthcare science specialist to a significant other at home: No Do you presently have visiting nurse or other home services: No Alcohol intake: never Patient Tobacco Use Status: Former Tobacco user Tobacco use type: Cigarette Smoked in Last 30 Days: No Second Hand Smoke Exposure: No Use of substances other than those prescribed or required for medical reasons: No Advance Directives: No Current occupational status: disabled Current occupation: rt handed Physical Exam ED Vital Signs: Vital Signs - 24 hr 12/31/23 11:36 12/31/23 13:49 12/31/23 14:46 Temperature 96.8 F 98.1 F Pulse Rate 82 68 73 Respiratory Rate 18 16 18 Blood Pressure 131/77 126/87 124/79 Pulse Oximetry 98 98 97 Oxygen Delivery Method Room Air Room Air Room Air BMI result Body Mass Index 30.2 Vital signs have been reviewed and appear to be correct. Blood pressure elevated. Heart rate normal. Respiratory rate normal. Temperature normal. Oxygen saturation normal. Appearance: Alert. Oriented X3. No acute distress. Head: Normal external exam. Normocephalic. Atraumatic. No Miller signs noted. No raccoon eyes noted Eyes: PERRLA. EOMI. Conjunctiva and sclera normal. Eyelids normal. ENT: TM's Normal. Pharynx normal. Uvula midline. Moist mucous membranes. No trismus noted. No drooling noted. No muffled voice noted. Neck: Normal inspection. Neck supple. FROM. No adenopathy. Thyroid Normal. No meningeal signs. No neck mass noted. CVS: Normal heart rate and rhythm. Heart sound normal. No murmurs noted. Pulses normal throughout. Respiratory: No respiratory distress. Painless inspiration. Breath sounds normal. No wheezes/rales/rhonchi noted. Chest nontender. No accessory muscle usage noted or decreased air movement noted. Abdomen: Soft and nontender. Bowel sounds normal in all 4 quadrants. No distention noted. No organomegaly noted. No visible injury noted. Back: No CVA tenderness. Full range of motion noted. Skin: Skin warm and dry. Normal skin color. Normal skin turgor. No rashes/lesions/lacerations noted. Extremities: No lower extremity edema. Extremities exhibit normal range of motion. Extremities nontender. Neuro: Oriented X 3. Cranial nerve exam: II-XII are grossly intact No motor deficit. No sensory deficit. Reflexes normal. Course Course Course Narrative: RME:?58 yo male hx of hypothyroid, psoriasis, psoriatic arthritis, chronic pain syndrome, asthma, DAYNA on CPAP, HTN, GERD w/ schatzki's ring, depression, mood disorder here for eval of right flank pain with assoc N/V/D and abdominal bloating x3 days. No radiation of pain. Denies fevers, dysuria, hematuria, constipation. no known sick contacts. viral serology, labs, and UA ordered. Full HPI, ROS and PE to be performed by the primary ED provider. Reevaluation(s) Reevaluation #1: right flank pain, and abdominal pain with nausea, vomiting, and nonbloody watery diarrhea, patient feels better with analgesia and narcotic, unremarkable CT for intra-abdominal pathology, UA is revealing no hematuria or infection. Labs are unremarkable. Will discharge to follow-up with PCP , use OTC for pain control at home. Time: 15:42 Medications Administered Discontinued Medications Generic Name Dose Route Start Last Admin Trade Name Dieterq PRN Reason Stop Dose Admin Hydromorphone HCl 1 mg 12/31/23 14:44 12/31/23 14:50 Hydromorphone Hcl 1 Mg/Ml Syringe IVPUSH 12/31/23 14:45 1 mg ONCE ONE Administration Protocol Sodium Chloride 1,000 mls @ 999 mls/hr 12/31/23 13:20 12/31/23 14:44 Ns IV 12/31/23 14:20 Infused .Q1H1M ONE Infusion Ketorolac Tromethamine 15 mg 12/31/23 13:20 12/31/23 13:42 Ketorolac Tromethamine 15 Mg/Ml Vial IVPUSH 12/31/23 13:21 15 mg ONCE ONE Administration Loperamide HCl 2 mg 12/31/23 13:20 12/31/23 13:43 Loperamide Hcl 2 Mg Capsule PO 12/31/23 13:21 2 mg ONCE ONE Administration Morphine Sulfate 1 mg 12/31/23 13:20 12/31/23 13:42 Morphine Sulfate 2 Mg/Ml Cartridge IVPUSH 12/31/23 13:21 1 mg ONCE ONE Administration Protocol Ondansetron HCl 4 mg 12/31/23 13:20 12/31/23 13:42 Ondansetron Hcl 4 Mg/2 Ml Vial IVPUSH 12/31/23 13:21 4 mg ONCE ONE Administration Medical Decision Making Differential Diagnosis Differential Diagnoses: The differential diagnosis associated with the presentation includes ( kidney stone, pyelonephritis, UTI, colitis, diverticulitis, appendicitis, pancreatitis, electrolyte derangement, severe anemia.) Admission/Observation Consideration of admission/observation: Escalation of care including admission/observation considered Lab Data MDM Lab Attestation statement: I reviewed the patient's lab results. 12/31/23 11:46 12/31/23 11:46 Labs: Lab Results 12/31/23 12/31/23 Range/Units 11:46 13:11 WBC 7.4 (4.8-10.8) X10*3/uL RBC 5.13 (4.60-5.80) X10*6/uL Hgb 15.9 (14.0-18.0) g/dl Hct 47.9 (42.0-52.0) % MCV 93.4 (80.0-98.0) fL MCH 31.0 (27.0-33.0) pg MCHC 33.2 (31.0-36.0) g/dl RDW 14.2 (11.0-16.0) % Plt Count 241 (160-400) X10*3/uL MPV 8.5 L (9.4-12.4) fL Immature Gran % (Auto) 0.3 (0.0-0.4) % Neut % (Auto) 42.7 L (45-73) % Lymph % (Auto) 47.2 H (20-40) % Ross % (Auto) 8.3 (2-11) % Eos % (Auto) 1.1 (0-4) % Baso % (Auto) 0.4 (0-2) % Lymph # (Auto) 3.5 (1.2-4.9) X10*3/uL Ross # (Auto) 0.6 (0.1-1.2) X10*3/uL Eos # (Auto) 0.1 (0.0-0.4) X10*3/uL Baso # (Auto) 0.0 (0.0-0.2) X10*3/uL Abs Immat Gran (auto) 0.02 (0.00-0.03) X10*3/uL Absolute Neuts (auto) 3.2 (2.0-8.3) x10*3/uL Absolute Nucleated RBC 0.000 (0.0-0.012) X10*3/uL Nucleated RBC % (auto) 0.0 (0.0-0.2) /100WBC Sodium 145 (135-145) mmol/L Potassium 4.2 (3.3-5.1) mmol/L Chloride 111 H (96-108) mmol/L Carbon Dioxide 28 (22-29) mmol/L Anion Gap 10 L (12-20) BUN 18 H (9-16) mg/dL Creatinine 1.26 (0.5-1.4) mg/dL Estim Creat Clear Calc 57.4 Estimated GFR 58 Random Glucose 93 (60-115) mg/dL Calcium 9.6 (8.4-10.2) mg/dL Magnesium 2.1 (1.6-2.6) mg/dL Total Bilirubin 0.9 (0.0-1.0) mg/dL AST 23 (5-37) U/L ALT 39 (0-40) U/L Alkaline Phosphatase 83 (39-117) U/L Total Protein 7.6 (6.5-8.0) g/dL Albumin 4.3 (3.5-5.0) g/dL Lipase 33 (8-78) U/L Urine Color Yellow Urine Appearance Clear Urine pH 6.0 (5.0-9.0) Ur Specific [place] 1.025 (1.005-1.025) Urine Protein Negative (Neg-Trace) mg/dL Urine Glucose (UA) Negative (Negative) mg/dL Urine Ketones Negative (Negative) mg/dL Urine Blood Negative (Negative) Urine Nitrite Negative (Negative) Ur Leukocyte Esterase Negative (Negative) Influenza Type A (PCR) NEGATIVE (Negative) Influenza Type B (PCR) NEGATIVE (Negative) RSV RNA Qual (PCR) NEGATIVE (Negative) SARS-CoV-2 RNA (RT-PCR) NEGATIVE (Negative) Independent Interpretation I performed an independent interpretation of an: CT Scan ( Abdomen pelvis:No evidence of active GI bleeding seen. Moderate size esophageal hernia. Question wall thickening of the stomach versus changes due to underdistention. Gallstone. Small left renal stones. Small left renal cyst. ) Radiology Impression Discussion of test interpretation with radiology: I have reviewed the radiologist's reading. Discharge Plan Discharge Clinical Impression: Gastroenteritis, Acute right flank pain Patient Disposition: Home, Self-Care Instructions: Gastroenteritis (ED) Prescriptions: No Action fluticasone propion-salmeterol [Advair Diskus] 250-50 mcg/dose blister with device 1 ea PO BID Qty: 60 6RF omeprazole 40 mg capsule,delayed release(DR/EC) 40 mg PO DAILY Qty: 90 1RF Enbrel SureClick 50 mg/mL (1 mL) pen injector 50 mg subcut QWEEK Qty: 4 5RF bumetanide 1 mg tablet 1 mg PO DAILY 30 Days Qty: 30 6RF loratadine 10 mg tablet 10 mg PO DAILY Qty: 30 3RF escitalopram oxalate 20 mg tablet 20 mg PO DAILY albuterol sulfate [ProAir HFA] 90 mcg/actuation HFA aerosol inhaler 2 puff inhalation Q6H PRN (Reason: Wheezing) fluticasone propionate 50 mcg/actuation spray,suspension 1 spray intranasal DAILY Rx Instructions: administer into each nostril buspirone 15 mg tablet 15 mg PO BID cholecalciferol (vitamin D3) 50 mcg (2,000 unit) tablet 50 mcg PO DAILY epinephrine 0.3 mg/0.3 mL auto-injector IM DIRECTED lidocaine [Lidoderm] 5 % adhesive patch,medicated 0 patch topical levothyroxine 88 mcg tablet 88 mcg PO DAILY Qty: 30 5RF ibuprofen 600 mg tablet 600 mg PO TID polyethylene glycol 3350 [Miralax] 17 gram/dose powder 17 g PO DAILY Qty: 510 0RF prednisone 20 mg tablet 40 mg PO DAILY 3 Days Qty: 6 0RF pregabalin 150 mg capsule 150 mg PO BID pregabalin 225 mg capsule 225 mg PO BID Referrals: Koki Vu MD [Primary Care Provider] -
[2023-12-31 11:50] LABS: MANUAL DIFF FLAG NO
[2023-12-31 11:53] LABS: Basophils Percent Auto 0.4 % (0-2); Eosinophils Absolute Auto 0.1 X10*3/uL (0.0-0.4); Eosinophils Percent Auto 1.1 % (0-4); Hematocrit 47.9 % (42.0-52.0); Hemoglobin 15.9 g/dl (14.0-18.0); Imm Gran Abs Auto 0.02 X10*3/uL (0.00-0.03); Imm Gran Pct Auto 0.3 % (0.0-0.4); Lymphocytes Absolute Auto 3.5 X10*3/uL (1.2-4.9); Lymphocytes Percent Auto 47.2 % (20-40); Mean Corpuscular HGB Conc 33.2 g/dl (31.0-36.0); Mean Corpuscular Volume 93.4 fL (80.0-98.0); Mean Platelet Volume 8.5 fL (9.4-12.4); Monocytes Absolute Auto 0.6 X10*3/uL (0.1-1.2); Monocytes Percent Auto 8.3 % (2-11); Neutrophils Absolute Auto 3.2 x10*3/uL (2.0-8.3); Neutrophils Percent Auto 42.7 % (45-73); Platelet Count 241 X10*3/uL (160-400); Red Blood Count 5.13 X10*6/uL (4.60-5.80); Red Cell Distribution Width 14.2 % (11.0-16.0); White Blood Count 7.4 X10*3/uL (4.8-10.8)
[2023-12-31 12:06] LABS: Alanine Aminotransferase 39 U/L (0-40); Albumin Level 4.3 g/dL (3.5-5.0); Alkaline Phosphatase 83 U/L (39-117); Anion Gap 10 (12-20); Aspartate Amino Transferase 23 U/L (5-37); Bilirubin Total 0.9 mg/dL (0.0-1.0); Blood Urea Nitrogen 18 mg/dL (9-16); Calcium 9.6 mg/dL (8.4-10.2); Carbon Dioxide 28 mmol/L (22-29); Chloride 111 mmol/L (96-108); Creatinine Clr Calc Pharmacy 57.4; Estimated Glomerular Filt Rate 58; Glucose Random 93 mg/dL (60-115); Lipase 33 U/L (8-78); Magnesium 2.1 mg/dL (1.6-2.6); Potassium 4.2 mmol/L (3.3-5.1); Sodium 145 mmol/L (135-145); Total Protein 7.6 g/dL (6.5-8.0)
[2023-12-31 12:55] LABS: Influenza A PCR NEGATIVE (Negative); Influenza B PCR NEGATIVE (Negative); Resp Syncy Virus RNA Qual PCR NEGATIVE (Negative); SARS COV2 PCR INHOUSE NEGATIVE (Negative)
[2023-12-31 13:16] LABS: Appearance Urine Clear; Color Urine Yellow; Glucose Urine UA Negative (Negative); Leukocyte Esterase Urine Negative (Negative); Nitrite Urine Negative (Negative); Specific Gravity - Urine 1.025 (1.005-1.025); Urine Blood Negative (Negative); Urine Ketones Negative (Negative); Urine Protein Negative (Neg-Trace)
[2023-12-31] MEDS: Morphine Sulfate 2 MG/ML CARTRIDGE 1 MG IVPUSH (13:42)
[2023-12-31] MEDS: ondansetron HCL 4 MG/2 ML VIAL IVPUSH (13:42)
[2023-12-31] MEDS: Ketorolac Tromethamine 15 MG/ML VIAL IVPUSH (13:42)
[2023-12-31] MEDS: 0.9 % Sodium Chloride 1,000 ML 999 ML IV (13:42)
[2023-12-31] MEDS: Loperamide HCl 2 MG CAPSULE PO (13:43)
[2023-12-31 13:49] VITALS: BP 126/87; PULSE 68; RESP 16; TEMP 36.7; O2SAT 98
--- NOTE | 2023-12-31 13:50 | PC.NURSE ---
this nurse took over care for the patient at 1330, patient a&ox3, iv was previously inserted/labs were drawn, pt currently c/o rt flank pain/abd pain 07/18, ivf started per order, pt medicated per order, vss, call montilla within reach, will continue to monitor
[2023-12-31 14:46] VITALS: BP 124/79; PULSE 73; RESP 18; O2SAT 97
[2023-12-31] MEDS: HYDROmorphone HCl 1 MG/ML SYRINGE IVPUSH (14:50)
--- NOTE | 2023-12-31 15:11 | PC.NURSE ---
pt medicated per order
[2023-12-31 16:04] LABS: Troponin-I High Sensitivity < 2.7 ng/L (<3.5-35.0)
--- NOTE | 2023-12-31 16:11 | PC.NURSE ---
ASSUMED CARE AT 1530. PT A+O X3. PREVIOUS RN AT BEDSIDE AT THE TIME OF ASSUMING CARE. PAIN REASSESSMENT REPORTED 0/10. PT's AT HIS BEDSIDE AT THIS TIME. REPEAT TROP RESULTS PENDING.
[2023-12-31 17:27] VITALS: BP 119/70; PULSE 65; RESP 16; TEMP 36.7; O2SAT 96
--- NOTE | 2023-12-31 17:29 | PC.NURSE ---
PT CLEARED FOR DISCHARGE, DISCHARGE INSTRUCTIONS REVIEWED WITH PT AND AT BEDSIDE VIA STAFF INCREMENT MANAGER. W/C PROVIDED, PT'S WHEELED HIM TO WAITING ROOM. PT DENIED PAIN AT TIME OF DISCHARGE. VSS.
== END 2023-12-31 17:28 | disposition home or self-care (01) ==
PROVIDERS: Physician Assistant Medical; Emergency Provider Emergency Medicine; PCP Family Medicine
DX: K52.9 Noninfective gastroenteritis and colitis, unspecified (principal); R10.9 Unspecified abdominal pain; I10 Essential (primary) hypertension; Z11.52 Encounter for screening for COVID-19; Z20.828 Contact with and (suspected) exposure to other viral communicable diseases
CPT/HCPCS: 0241U; 36415; 74176; 80053; 81003; 83690; 83735; 84484; 85025; 96361; 96374; 96375; 99284; J1170; J1885; J2270; J2405

== ENCOUNTER 2024-01-08 08:46 | Outpatient (AMB) | payer MEDICAID, SELFPAY ==
--- NOTE | 2024-01-08 08:56 | MHC.OFFVIS ---
Vital Signs 01/08/24 09:08 Height 5 ft 3 in Weight 170 lb 4 oz BMI 30.2 BP 130/72 Blood Pressure Location Lt brachial Position Sitting Pulse 75 Pulse Source Pulse Oximeter Pulse Oximetry (%) 95 Oxygen Delivery Method Room Air Intake Visit Reasons: 3 mo f/u- DAYNA-Conf Intake Note: Patient presents for 3 month F/U. Is it normal for water in CPAP machine to be gone by the am and is feeling a lot of moisture. when taking off mask pt. having trouble breathing Allergies No Known Allergies [No Known Allergies*] Allergy (Verified 01/08/24 09:07) HPI Comments Details: 58 y/o male patient with fibromyalgia, chronic pain syndrome presents for follow up of DAYNA, neck and occipital head pain. Certified medical and scientific illustrator Ana Wolff helped for this visit. Pt continues to endorse shooting and sharp neck pain when he click his neck, and the pain radiated to whole left side of his head. occipital headache with numbness. The frequency and intensity of the neck pain and headache increased over the last year. He is followed by pain management clinic at [facility] for back pain and has had several different types of injections/decompressions with minimal relief per his report. Pt had cervical spine surgery done in 2019 for neck pain. Pt was told that he needed 3 surgeries but had only 1 surgery done. His neurosurgeon told him he does not need more procedures or surgery for his neck pain. Daily occipital headache worse at night, intense headache. Brain MRI result was normal MRI of brain, upper cervical spondylosis. CPAP compliance and therapy response (10/09/23-01/06/24) reviewed. He is on APAP at [id number]. The usage days 98% and the average usage hours 6 hrs. The max pressure was 9.5 and the residual AHI was 1.2/hr. Pt reports he still feels not great using CPAP, feels not breathing well. He is also followed by property and equipment clerk for dyspnea. 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 Venous congestion Pain in right lower leg Lipoma of scalp Kidney cysts Spondylosis of thoracic spine Spondylosis of lumbar spine Schatzki's ring Fatty liver HTN (hypertension) Pre-diabetes Dysphagia Asthma Hx of chest pain DAYNA on CPAP Hypothyroid Psoriasis Psoriatic arthritis Chronic pain Mood disorder Depression Avascular necrosis Chronic pain syndrome Spondylosis of lumbar region without myelopathy or radiculopathy Spondylosis, cervical Degeneration, intervertebral disc, cervical Surgical History History of back surgery History of surgery Status post excision of lipoma (~10/21/21) Status post cardiac catheterization Hx of cardiac cath H/O neck surgery Hx of hand surgery Hx of endoscopy History of colonoscopy Family History Father Cirrhosis Alcoholism Mother Diabetes HTN (hypertension) Parkinson disease Brother Cirrhosis Alcoholism Social History Household Members: Spouse and Children Are you a primary managed care provider to a significant other at home: No Do you presently have visiting nurse or other home services: No Alcohol intake: never Patient Tobacco Use Status: Former Tobacco user Tobacco use type: Cigarette Second Hand Smoke Exposure: No Current occupational status: disabled Current occupation: rt handed Review of Systems Const All systems reviewed & are unremarkable except as noted in HPI and below ENT Reports Normal hearing present Neuro Reports Normal hearing present Physical Exam Vital Signs: Last Vital Signs Pulse 75 01/08/24 09:08 BP 130/72 01/08/24 09:08 Pulse Ox 95 01/08/24 09:08 Oxygen Delivery Method Room Air 01/08/24 09:08 BMI result Body Mass Index 30.2 Const General: cooperative Nutritional Appearance: obese Orientation/consciousness: patient oriented x3 Limitations: language barrier (French speaking only.) and ambulation with cane Neck Neck: Yes full ROM (pain with movement. ) and Yes supple Resp Effort & Inspection: normal respiratory effort and able to speak in complete sentences Neuro General: patient oriented x3 Cranial nerves: Yes Bilaterally intact EOM present, Yes Normal facial strength present, Yes Midline tongue present, Yes Symmetric palate elevation present, Yes Normal hearing present, Yes Ability to bilaterally rotate head present and Yes Ability to bilaterally elevate shoulders present Cognition (Neuro): normal cognition Motor exam (neuro): 5/5 motor strength present throughout and Pronator motor function not present Deep tendon reflexes (DTR's): Rt Biceps (C5, C6): 3+, Left biceps reflex intensity grade: 3+, Right brachioradialis reflex intensity grade: 3+ and Left brachioradialis reflex intensity grade: 3+ Psych Appearance: grossly normal Mental Status: mental status grossly normal Speech and movement: Normal speech and movement present Affect: normal affect Attitude: cooperative Assessment & Plan Assessment & Plan (1) Cervicalgia of [id number]-[id number] region: Code(s): M54.2 - Cervicalgia Category: Medical (2) Unilateral occipital headache: Comment: Increased headache Code(s): R51.9 - Headache, unspecified Category: Medical (3) DAYNA (obstructive sleep apnea): Comment: On CPAP. Code(s): G47.33 - Obstructive sleep apnea (adult) (pediatric) Category: Medical Plan Advised patient to try physical therapy for neck pain and occipital headache. Advised patient to try magnesium 400 mg qHS and vitamin B2 400 mg daily for headache prevention. Continue to use CPAP nightly, more than 4 hrs. Stressed compliance. Orders: Orders PT Evaluation and Treatment 01/08/24 M50.30 - Other cervical disc degeneration, unspecified cervical region, M54.2 - Cervicalgia Medications: New magnesium oxide 400 mg PO DAILY 90 tabs 1RF 90 days riboflavin (vitamin B2) 400 mg PO DAILY 90 tabs 1RF 90 days
[2024-01-08 09:08] VITALS: BP 130/72; PULSE 75; O2SAT 95; BMI 30.2
== END 2024-01-08 09:39 | disposition home or self-care (01) ==
PROVIDERS: PCP Family Medicine; Visit Provider Nurse Practitioner Family
DX: M54.2 Cervicalgia (principal); R51.9 Headache, unspecified; G47.33 Obstructive sleep apnea (adult) (pediatric)
CPT/HCPCS: 99214

== ENCOUNTER → 2024-01-08 08:46 | Outpatient (BNVA) | payer MEDICAID, SELFPAY | PROVIDERS: PCP Family Medicine; Visit Provider Nurse Practitioner Family | DX: G47.33 Obstructive sleep apnea (adult) (pediatric) (principal); M54.81 Occipital neuralgia; M54.2 Cervicalgia; Z99.89 Dependence on other enabling machines and devices | CPT/HCPCS: 99212 ==

== ENCOUNTER 2024-02-14 07:23 | Outpatient (REF) | payer MEDICAID, SELFPAY ==
[2024-02-14 07:38] LABS: MANUAL DIFF FLAG NO
[2024-02-14 08:04] LABS: Basophils Percent Auto 0.5 % (0-2); Eosinophils Absolute Auto 0.2 X10*3/uL (0.0-0.4); Eosinophils Percent Auto 2.7 % (0-4); Hematocrit 41.7 % (42.0-52.0); Hemoglobin 13.7 g/dl (14.0-18.0); Imm Gran Abs Auto 0.04 X10*3/uL (0.00-0.03); Imm Gran Pct Auto 0.5 % (0.0-0.4); Lymphocytes Absolute Auto 4.1 X10*3/uL (1.2-4.9); Mean Corpuscular HGB Conc 32.9 g/dl (31.0-36.0); Mean Corpuscular Hemoglobin 31.2 pg (27.0-33.0); Mean Platelet Volume 9.2 fL (9.4-12.4); Monocytes Absolute Auto 0.7 X10*3/uL (0.1-1.2); Monocytes Percent Auto 8.6 % (2-11); Neutrophils Absolute Auto 3.1 x10*3/uL (2.0-8.3); Neutrophils Percent Auto 37.7 % (45-73); Platelet Count 264 X10*3/uL (160-400); Red Blood Count 4.39 X10*6/uL (4.60-5.80); Red Cell Distribution Width 14.1 % (11.0-16.0); White Blood Count 8.2 X10*3/uL (4.8-10.8)
[2024-02-14 08:27] LABS: Alanine Aminotransferase 20 U/L (0-40); Albumin Level 4.1 g/dL (3.5-5.0); Alkaline Phosphatase 77 U/L (39-117); Anion Gap 13 (12-20); Aspartate Amino Transferase 20 U/L (5-37); Bilirubin Total 0.5 mg/dL (0.0-1.0); Blood Urea Nitrogen 17 mg/dL (9-16); C Reactive Protein 0.36 mg/dL (< or = 0.50); Calcium 9.5 mg/dL (8.4-10.2); Carbon Dioxide 26 mmol/L (22-29); Chloride 110 mmol/L (96-108); Estimated Glomerular Filt Rate > 60; Glucose Random 102 mg/dL (60-115); Potassium 4.3 mmol/L (3.3-5.1); Sodium 145 mmol/L (135-145)
[2024-02-14 10:21] LABS: Erythrocyte Sedimentation Rate 4 MM/HR (0-15)
== END 2024-02-14 07:24 | disposition home or self-care (01) ==
LOC: HO.LAB 07:23
PROVIDERS: PCP Family Medicine; Visit Provider Nurse Practitioner Family
DX: L40.50 Arthropathic psoriasis, unspecified (principal)
CPT/HCPCS: 36415; 80053; 85025; 85652; 86140

== ENCOUNTER 2024-02-15 12:26 | Outpatient (AMB) | payer MEDICAID, SELFPAY ==
--- NOTE | 2024-02-15 12:59 | A.OFFVIS_ITS ---
Vital Signs 02/15/24 13:00 Height 5 ft 3 in Weight 173 lb 11.588 oz BMI 30.8 BP 110/62 Blood Pressure Location Rt brachial Position Sitting Pulse 80 Pulse Source Pulse Oximeter Pulse Oximetry (%) 94 Oxygen Delivery Method Room Air Intake Visit Reasons: PSA Intake Note: Patient last seen 10/18/23, presents today for PSA follow up and test results. Reports hip injection effect did not last very long. Secondary School Teacher Librarian Required: Yes Secondary School Teacher Librarian Language: Senior Front End Web Developer Name: Poli [id number] Information Interpreted: clinical only Accompanied by: Self / Same As Patient Allergies No Known Allergies [No Known Allergies*] Allergy (Verified 02/15/24 13:00) HPI Comments Details: Mr. Severo Hdz yoM, not accopmpanied by his Juanita at this visit, returns to Rheumatology for follow-up of his psoriatic arthritis with PsO and fibromyalgia. The visit is facilitated through the [employer] translating device. He also is followed in Pain Management for lumbar osteoarthritis and has received various procedures and injections for that problem. The injection to the left piriformis was very helpful but he can feel some return of symptoms. He demonstrates that he has pain that radiates from his lower back to his ankle on the right side. It is especially tender at the glutes. He showed some raised areas that are tender on his lower leg ans states they have been painful for the las 2 years. He remains on Enbrel 50 mg once a week. His overall widespread pains in muscles, bones and joints continues about the same. He has not really seen any swollen joints. He does take ibuprofen 600 mg 3 times a day, daily lidocaine patch, and nighttime amitriptyline. These meds are somewhat helpful. He denies any side effects with his medication. For anxiety and depression he remains on BuSpar and escitalopram. 10/18/2023 Mr. Elkins 58 yoM, accopmpanied by his Juanita, returns to Rheumatology for follow-up of his psoriatic arthritis with PsO and fibromyalgia. The visit is facilitated through the [employer] translating device. He also is followed in Pain Management for lumbar osteoarthritis and has received various procedures and injections for that problem. He demonstrates that he has pain that radiates from his lower back to his ankle on the right side. It is especially tender at the glutes. He showed some raised areas that are tender on his lower leg ans states they have been painful for the las 2 years. He remains on Enbrel 50 mg once a week. His overall widespread pains in muscles, bones and joints continues about the same. He has not really seen any swollen joints. He does take ibuprofen 600 mg 3 times a day, daily lidocaine patch, and nighttime amitriptyline. These meds are somewhat helpful. He denies any side effects with his medication. For anxiety and depression he remains on BuSpar and escitalopram. 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 Venous congestion Pain in right lower leg Lipoma of scalp Kidney cysts Spondylosis of thoracic spine Spondylosis of lumbar spine Schatzki's ring Fatty liver HTN (hypertension) Pre-diabetes Dysphagia Asthma Hx of chest pain DAYNA on CPAP Hypothyroid Psoriasis Psoriatic arthritis Chronic pain Mood disorder Depression Avascular necrosis Chronic pain syndrome Spondylosis of lumbar region without myelopathy or radiculopathy Spondylosis, cervical Degeneration, intervertebral disc, cervical Surgical History History of back surgery History of surgery Status post excision of lipoma (~10/21/21) Status post cardiac catheterization Hx of cardiac cath H/O neck surgery Hx of hand surgery Hx of endoscopy History of colonoscopy Family History Father Cirrhosis Alcoholism Mother Diabetes HTN (hypertension) Parkinson disease Brother Cirrhosis Alcoholism Social History Household Members: Spouse and Children Are you a primary managed care provider to a significant other at home: No Do you presently have visiting nurse or other home services: No Alcohol intake: never Patient Tobacco Use Status: Former Tobacco user Tobacco use type: Cigarette Second Hand Smoke Exposure: No Current occupational status: disabled Current occupation: rt handed Review of Systems Const All systems reviewed & are unremarkable except as noted in HPI and below Physical Exam Vital Signs: Last Vital Signs Pulse 80 02/15/24 13:00 BP 110/62 02/15/24 13:00 Pulse Ox 94 02/15/24 13:00 Oxygen Delivery Method Room Air 02/15/24 13:00 BMI result Body Mass Index 30.8 APPEARANCE: Patient in no acute distress EYES: no redness, pupils equal and reactive to light, eyelids normal. No temporal artery tenderness, redness or swelling. EXTREMITIES: No edema, no calf tenderness, normal peripheral pulses. NEURO: Oriented and alert x3. No focal weakness. Uses cane. SKIN: Ridging of nail noted right thumb (hx of crush injusry to this hand). No inflammatory or neoplastic lesions. Normal color and turgor. 2 areas of raised subcutaneous lumps to righ lower leg laterally JOINT EXAM: Cervical Spine:? Pain reported with flexion, extension, left rotation, right rotation, right lateral flexion and left lateral flexion. Also tenderness reported to palpation of the cervical spine. Widespread diffuse pain to palpation throughout. Thoracic Spine: Diffuse tenderness to palpation throughout Lumbar Spine:? Alignment normal.? Full range of motion, able to fully flex with pain. Tenderness to palpation of the lumbar spine and lumbar spinal muscles. Widespread diffuse tenderness to palpation throughout the spine. Hands: Normal pain-free range of motion. There is some minimal slightly tender bony enlargement at the 2nd, 3rd and 5th D IP joints bilaterally. No other swelling, increased warmth or erythema. Able to make a full fist and has a good cheese processor strength. Widespread diffuse tenderness to palpation throughout the hands. Wrists: LEFT: Normal pain-free range of motion without swelling, increased warmth or erythema. Widespread diffuse tenderness to palpation throughout. RIGHT: Slightly limited flexion and extension (chronic per patient report after injury to the right wrist hand in 1994). No swelling increased warmth or erythema. Widespread diffuse tenderness to palpation throughout. Elbows: Normal pain-free range of motion without tenderness, swelling, increased warmth or erythema. Widespread diffuse tenderness to palpation over the biceps and down both forearms. Shoulders:? Full range of motion. No weakness, swelling, increased warmth or erythema. Widespread diffuse pain to palpation. Hips:? Full range of motion, slight pain with abduction bilaterally, pain is reported in the groin. Hip bursa:? No tenderness. Knees:?? Normal pain-free range of motion. No swelling, increased warmth or erythema.? There is slight patellofemoral crepitus but no effusion appreciated. Bilateral medial and lateral compartment tenderness. Widespread diffuse pain to palpation down both shins. Ankles: Normal pain-free range of motion without tenderness, swelling, increased warmth or erythema. Feet: Normal range of motion without swelling, increased warmth or erythema. Widespread diffuse tenderness to palpation throughout both feet. Tender points: Tenderness to digital palpation at the occiput, trapezius, second rib, lateral epicondyle, knees, greater trochanter and gluteal area bilaterally. ? 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: Code(s): M47.27 - Other spondylosis with radiculopathy, lumbosacral region Category: Medical (4) Long-term use of immunosuppressant medication: Code(s): Z79.60 - senior care (current) use of unspecified immunomodulators and immunosuppressants Category: Medical (5) Piriformis syndrome of right side: Code(s): G57.01 - Lesion of sciatic nerve, right lower limb Category: Medical (6) Pain in right lower leg: Code(s): M79.661 - Pain in right lower leg Category: Medical (7) Venous congestion: Code(s): I87.8 - Other specified disorders of veins Category: Medical Plan #PsO/PsA: The exam does not reveal signs of an active inflammatory arthritis from his psoriatic arthritis. Except for a pencil eraser size lesion on the left lower leg laterally, I do not see any signs of psoriasis presently. It is reasonable to say that the Enbrel 50 mg QW, seems to be helping him. We will continue with Enbrel and we would recheck him in 4 months. #Lumbar Spondylosis/Right Sciatica/Right Piriformis Pain:His more problematic area in the lower back is consistent with some lumbar osteoarthritis. He describes pain that radiates down to his ankle on the right and makes it difficult to walk, sleep. Given the marked tenderness to the piriformis region it seems reasonable to given him an injection with the goal to reduce the inflammation in the area. It was helpful and has slight return of symptoms now. The patient knows to call if he needs another one. #Pain Right Lower Leg/Venous Congestion: On Exam there are two subcutaneous roscoe mps that appear as venous congestion. The patient states they are very tender when I palpate. The lower leg skin is more taut the the opposite leg with some swelling. He states he has had it for over 1 year and the lumps have gotten bigger and tender. He denies prior imaging. I will do an ultrasound to assess for clots and cause. It was order prior but was not done. will try again to get it done. #Nursing Home Use of Enbrel: Discussed with patient that he should stop taking Enbrel if he develops signs or symptoms of an infection such as fevers. He should aslo call the office if he has a wound that does not heal. We will continue to monitor for blood dyscrasias with repeated labs. #Left Hip AVN:He has some abnormality in the left hip consistent with healing avascular necrosis per imaging. Per patient Ortho told him to return if having pain. #Fibromyalgia:The patient has longstanding musculoskeletal pains. With the many tender points also his pain syndrome is consistent with fibromyalgia. I have spent 20 minutes reviewing chart, evaluating patient, and documenting. 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
[2024-02-15 13:00] VITALS: BP 110/62; PULSE 80; O2SAT 94; BMI 30.8
== END 2024-02-15 13:59 | disposition home or self-care (01) ==
LOC: HO.RHE 12:26
PROVIDERS: PCP Family Medicine; Referring Provider Family Medicine; Visit Provider Nurse Practitioner Family
DX: L40.9 Psoriasis, unspecified (principal); L40.50 Arthropathic psoriasis, unspecified; M47.27 Other spondylosis with radiculopathy, lumbosacral region; Z79.60 Long term (current) use of unspecified immunomodulators and immunosuppressants; G57.01 Lesion of sciatic nerve, right lower limb; M79.661 Pain in right lower leg; I87.8 Other specified disorders of veins
CPT/HCPCS: 99213; G2211

== ENCOUNTER → 2024-02-15 12:26 | Outpatient (BNVA) | payer MEDICAID, SELFPAY | PROVIDERS: PCP Family Medicine; Visit Provider Nurse Practitioner Family | DX: L40.9 Psoriasis, unspecified (principal); L40.50 Arthropathic psoriasis, unspecified; M47.27 Other spondylosis with radiculopathy, lumbosacral region; M79.661 Pain in right lower leg; G57.01 Lesion of sciatic nerve, right lower limb; I87.8 Other specified disorders of veins; Z79.60 Long term (current) use of unspecified immunomodulators and immunosuppressants | CPT/HCPCS: 99212 ==

== ENCOUNTER 2024-02-22 08:09 | Outpatient (REF) | payer MEDICAID, SELFPAY ==
--- NOTE | ~2024-02-22 | FL_ITS ---
EXAMINATION: XR FLUOROSCOPY UPPER GI WITH AIR CLINICAL INFORMATION: Dysphagia. History of esophageal dilation COMPARISON: 09/16/2022. 10/04/2019. 01/16/2018. TECHNIQUE: Fluoroscopic air contrast upper GI examination was performed utilizing standard techniques with thin and thick barium and effervescent granules. Numerous spot images were obtained. FINDINGS: Status post ACDF C5-C7 with oblique interbody screws and disc grafts. Grossly no complication on this limited visualization. Prominent osteophyte ventrally arising from C4-C5 without significant mass effect. Lateral cine images of the oropharynx and hypopharynx demonstrate normal swallow mechanism with normal epiglottic inversion and soft palate elevation. No tracheal penetration, glottic or subglottic aspiration identified. No nasopharyngeal reflux present. Hypopharyngeal structures appear normal without evidence of mass or diverticulum. Mild ballooning of the hypopharynx noted on swallow. There is mild to moderate cricopharyngeal achalasia present. Dual and single contrast images of the esophagus demonstrate normal caliber, contour, and mucosal pattern. No evidence of stricture, mass, or ulcerations identified. Esophageal peristalsis was mildly disordered. The patient swallowed the 13 mm barium tablet without any difficulty. The tablet passed freely into the stomach without any issue. Small type I hiatal hernia is present. Otherwise normal GE junction. No significant gastroesophageal reflux was seen during the course of the examination and on reflux views. Dual contrast and single contrast images of the stomach demonstrated normal contour and mucosal pattern without evidence of mass, ulceration, or other abnormality. Contrast freely passed into the gastric antrum and duodenal bulb without delay. Single and air-contrast images of the duodenal bulb demonstrate no abnormality. The duodenal sweep has a normal appearance, course, and mucosal fold appearance. No malrotation. The imaged proximal jejunum has a normal fold pattern and caliber. FLUOROSCOPY TIME: 3 minutes 18 seconds Number of Spot Images: 8 Number of Cine: 14 DOSE AREA PRODUCT: 2275 uGy-m2 (microgray-meter squared) FL/FL barium swallow with air IMPRESSION: 1. Mild to moderate cricopharyngeal achalasia. 2. Status post anterior fusion C5-C7 without gross complication. Prominent ventral C4-C5 osteophyte without mass effect. 3. Small type I hiatal hernia. Normal GE junction without narrowing. 4. Mild disordered esophageal peristalsis. A 13 mm barium tablet passed without difficulty. 5. Normal-appearing stomach and duodenum. 6. No significant GE reflux identified during the course of the exam. This procedure was performed by Poli Pineda PA-C, and supervised by Dr. Ho
--- NOTE | ~2024-02-22 | XR_ITS ---
EXAMINATION: XR ABDOMEN KUB CLINICAL INDICATION: Epigastric pain Constipation and distention COMPARISON: KUB 02/21/2023 TECHNIQUE: AP view of the abdomen. FINDINGS: The bowel gas pattern is normal with no evidence of ileus or obstruction. There is moderate stool within the colon from cecum to descending colon consistent with mild constipation. Small calcification in the right side of the pelvis likely represents a phlebolith. Elevation the right hemidiaphragm is again noted. No significant change and sclerosis of the left femoral head without flattening. Tubular structures seen inferior to the pubic symphysis. XR/XR KUB IMPRESSION: 1. No obstruction. 2. Mild constipation. 3. No significant change in sclerosis of the left femoral head.
== END 2024-02-22 08:10 | disposition home or self-care (01) ==
LOC: HO.XRAY 08:09
PROVIDERS: PCP Family Medicine; Visit Provider Internal Medicine Gastroenterology
DX: R13.10 Dysphagia, unspecified (principal)
CPT/HCPCS: 74018; 74220; 74221

== ENCOUNTER → 2024-02-22 08:12 | Outpatient (BNV) | payer MEDICAID, SELFPAY | PROVIDERS: PCP Family Medicine; Visit Provider Physician Assistant Surgical | DX: R13.10 Dysphagia, unspecified (principal) | CPT/HCPCS: 74246 ==

== ENCOUNTER 2024-02-26 09:05 | Outpatient (REF) | payer MEDICAID, SELFPAY ==
--- NOTE | ~2024-02-26 | US_ITS ---
EXAMINATION: US VENOUS ULTRASOUND WITH DOPPLER LOWER EXTREMITY, RIGHT CLINICAL INFORMATION: Right lower leg pain, multiple lateral right leg palpable lumps COMPARISON: None available. TECHNIQUE: Ultrasound of the deep veins is performed from the hip to the calf with compression sonography and color and pulse Doppler assessment. Spectral analysis with color-flow imaging is performed. FINDINGS: There is normal venous compression and respiratory variation and augmented flow. The visualized common femoral vein, superficial femoral vein, profunda femoral vein, popliteal vein, and the trifurcation region shows no evidence of deep venous thrombosis. There is no significant popliteal fossa cyst. Targeted ultrasound examination of right lateral calf over the site of palpable lump shows normal subcutaneous and muscular tissue, intact bony cortex. No focal lesion with abnormal echogenicity or abnormal fluid collection could be found. If the patient's symptoms persist, followup ultrasound in 5 days 7 days might be of value to exclude proximal propagation from a non-visualized calf vein. US/US venous duplex LE RT IMPRESSION: No DVT demonstrated in the right lower extremity.
== END 2024-02-26 09:06 | disposition home or self-care (01) ==
LOC: HO.US 09:05
PROVIDERS: PCP Family Medicine; Visit Provider Nurse Practitioner Family
DX: M79.661 Pain in right lower leg (principal); I87.8 Other specified disorders of veins
CPT/HCPCS: 93971

== ENCOUNTER 2024-04-15 10:56 | Outpatient (AMB) | payer MEDICAID, SELFPAY ==
--- NOTE | 2024-04-15 11:12 | MHC.OFFVIS ---
Vital Signs 04/15/24 11:20 Height 5 ft 3 in Weight 171 lb BMI 30.3 BP 132/65 Blood Pressure Location Lt brachial Position Sitting Pulse 61 Intake Visit Reasons: 4 month follow up Intake Note: Patient follow up for Epigastric pain Patient cc: Epigastric pain with bloating on and off, acid reflex with burning sensation come and go, Constipation, and some difficulty swallowing food solid and liquid, too. Also patient is been with fatigue and dizziness. Cathode Ray Tube Salvage Processor Required: Yes Cathode Ray Tube Salvage Processor Name: C interpeter Accompanied by: Self / Same As Patient Allergies No Known Allergies [No Known Allergies*] Allergy (Verified 04/15/24 11:12) HPI HPI 4 month follow up: Details: 58 yr old m here for f/u RECAP: Saw [facility] [place] initially: c/o tightness in his throat, been on protonix for GERD, well controlled anxiety regarding swallowing and fear of choking but not actually choking. he had been told he has prominent spur in the neck which maybe causing his symptoms by his neurosurgeon CT 2018--fatty liver, liver cyst, bilobed and septated Ba swallow with prominent cricopharyngeal sphincter EGD --: LA grade A esophagitis, schatzki ring, balloon dilation w tear noted, antral erosive gastritis, bulbar duodenitis reflux changes on bx he was still c/o sx at f/u with saliva choking him, tightness PCP ordered us and pos for fatty liver, LFT have been normal. he can swallow food without any issue except for one occasion 4 d felt like some sfood stuck in stomach still taking carafate and pantopRAZOLE, feels doesn't help him seeing pain management for hip I ordered cardiac eval due to SOB,this was neg RAST testing neg OTHER DATA-- MBS ---unremarkable MRI--10/2020--Fatty liver. Several liver cysts, largest a minimally complex cyst measuring 4.5 x 3.6 cm in the right lobe of the liver. 1 cm probable complex cyst in the lower pole of the left kidney. Diverticulosis of the colon. repeat MRI 04/2021--dominant cyst central right lobe with circumscribed macrolobulated margins is without significant change in size, measuring 4.6 x 3.8 x 4.5 cm on current study. Prior measurement is 4.4 x 3.7 x 4.4 cm on MR 10/28/2020 and 3.9 x 3.2 x [address] abdomen 07/18/2019, (both prior exams remeasured in same orientation). No solid component or visible septation. EGD with dilation 05/06/21 Impression/Findings: schatzki ring esophagitis gastritis duodenitis maybe due to medications i.e CCB, SSRI GES 08/2021-- nml emptying at 4 hrs He had a lot of mucous and sputum and I had given him loratadine, pepcid A rept MRI was ordered 08/26/22 with stable liver and renal cysts Ba swallow with tab 09/2022 w/o stricture, some dysmotility noted US: 01/2023-- liver cyst and small kidney cysts, fatty liver, mild raised elastography CT 02/28- liver cysts were stable, no acute path (this CT was ordered by ED) KUB: 08/31-- moderate constipation Ba swallow: 1. Mild to moderate cricopharyngeal achalasia. 2. Status post anterior fusion C5-C7 without gross complication. Prominent ventral C4-C5 osteophyte without mass effect. 3. Small type I hiatal hernia. Normal GE junction without narrowing. 4. Mild disordered esophageal peristalsis. A 13 mm barium tablet passed without difficulty. 5. Normal-appearing stomach and duodenum. 6. No significant GE reflux identified during the course of the exam. INTERIM: He has noted swallowing issues, food getting stuck in throat mild epigastric pain no nausea or vomiting no blood in stool, no melena not been taking PPI EXAM: GENERAL: The patient is well developed and nontoxic.-obese VITAL SIGNS:see workflow HEENT: Nonicteric sclerae, PERRLA, EOMI. Oropharynx clear. Moist mucous membranes. Conjunctivae appear well perfused. No thyroid mass. CHEST: Chest wall is tender to touch HEART: Regular rate and rhythm without murmurs. LUNGS: Clear to auscultation bilaterally. ABDOMEN: Soft, positive bowel sounds, tender epigastrium, no organomegaly. SKIN: maculopapular rash on torso and back, looks like dermatitis NEUROLOGIC: Cranial nerves II-XII intact without motor/sensory deficit. 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 Venous congestion Pain in right lower leg Lipoma of scalp Kidney cysts Spondylosis of thoracic spine Spondylosis of lumbar spine Schatzki's ring Fatty liver HTN (hypertension) Pre-diabetes Dysphagia Asthma Hx of chest pain DAYNA on CPAP Hypothyroid Psoriasis Psoriatic arthritis Chronic pain Mood disorder Depression Avascular necrosis Chronic pain syndrome Spondylosis of lumbar region without myelopathy or radiculopathy Spondylosis, cervical Degeneration, intervertebral disc, cervical Surgical History History of back surgery History of surgery Status post excision of lipoma (~10/21/21) Status post cardiac catheterization Hx of cardiac cath H/O neck surgery Hx of hand surgery Hx of endoscopy History of colonoscopy Family History Father Cirrhosis Alcoholism Mother Diabetes HTN (hypertension) Parkinson disease Brother Cirrhosis Alcoholism Social History Household Members: Spouse and Children Are you a primary career development coordinator/teacher to a significant other at home: No Do you presently have visiting nurse or other home services: No Alcohol intake: never Patient Tobacco Use Status: Former Tobacco user Tobacco use type: Cigarette Second Hand Smoke Exposure: No Current occupational status: disabled Current occupation: rt handed Physical Exam Vital Signs: Last Vital Signs Pulse 61 04/15/24 11:20 BP 132/65 04/15/24 11:20 BMI result Body Mass Index 30.3 Assessment & Plan Assessment & Plan (1) Dysphagia: Code(s): R13.10 - Dysphagia, unspecified Category: Medical Qualifiers: Dysphagia type: other dysphagia Qualified Code(s): R13.19 - Other dysphagia Plan: seealicia patrick Medications: New sucralfate 10 mL PO BID 1,000 mL 1RF Refilled omeprazole 40 mg PO DAILY 90 caps 1RF Coding Level of Care Code Est Pt Level 4 (32448) Diagnoses Other dysphagia R13.19 Dysphagia type: other dysphagia
[2024-04-15 11:20] VITALS: BP 132/65; PULSE 61; BMI 30.3
== END 2024-04-15 11:33 | disposition home or self-care (01) ==
PROVIDERS: PCP Family Medicine; Referring Provider Family Medicine; Visit Provider Internal Medicine Gastroenterology
DX: R13.19 Other dysphagia (principal)
CPT/HCPCS: 99214

== ENCOUNTER → 2024-04-15 10:56 | Outpatient (BNVA) | payer MEDICAID, SELFPAY | PROVIDERS: PCP Family Medicine; Visit Provider Internal Medicine Gastroenterology | DX: R13.19 Other dysphagia (principal); K21.9 Gastro-esophageal reflux disease without esophagitis | CPT/HCPCS: 99212 ==

== ENCOUNTER → 2024-05-23 12:53 | Outpatient (BNVA) | payer MEDICAID, SELFPAY | PROVIDERS: PCP Family Medicine; Visit Provider Internal Medicine Pulmonary Disease | DX: G47.33 Obstructive sleep apnea (adult) (pediatric) (principal); R60.0 Localized edema; Z87.891 Personal history of nicotine dependence; Z99.89 Dependence on other enabling machines and devices | CPT/HCPCS: 99212 ==

== ENCOUNTER 2024-05-28 08:46 | Outpatient (REF) | payer MEDICAID, SELFPAY ==
--- NOTE | ~2024-05-28 | US_ITS ---
EXAMINATION: US RETROPERITONEAL COMPLETE (RENAL) CLINICAL INFORMATION: Renal cyst. COMPARISON: CT abdomen and pelvis 12/11/2023 and 03/02/2023. Prior ultrasound images of the abdomen including exam of 01/20/2023 and MR abdomen of 08/26/2022 are not available at this time for comparison. TECHNIQUE: Real-time imaging of the kidneys and bladder. Limited visualization due to bowel gas. FINDINGS: RIGHT KIDNEY: 9.5 x 5.9 x 5.2 cm (SAG x AP x TRV). No hydronephrosis. Renal cortical thickness is normal. Limited visualization. LEFT KIDNEY: 11.0 x 5.5 x 4.1 cm (SAG x AP x TRV). No hydronephrosis. No renal calculi. Renal cortical thickness is normal. Limited visualization. 1.3 x 0.9 x 1.2 cm left mid pole exophytic cortical cyst with adjacent calcifications measuring 0.3 cm and 0.2 cm. US/US renal BI IMPRESSION: 1.3 cm left mid pole exophytic cortical cyst with adjacent calcifications measuring 0.3 cm and 0.2 cm. This was not characterized on recent CT scan reports. Prior ultrasound and MRI images are not available at this time for direct comparison. Electronically signed by: Caridad Grider MD 06/12/2024 05:18 AM EDT
== END 2024-05-28 08:47 | disposition home or self-care (01) ==
LOC: HO.US 08:46
PROVIDERS: PCP Family Medicine; Visit Provider Nurse Practitioner Family
DX: N28.1 Cyst of kidney, acquired (principal)
CPT/HCPCS: 76775

== ENCOUNTER 2024-06-06 09:40 | Outpatient (REF) | payer MEDICAID, SELFPAY ==
[2024-06-06 11:07] LABS: Prostate Specific Antigen 0.64 ng/mL (<0.05-4.0)
== END 2024-06-06 09:41 | disposition home or self-care (01) ==
LOC: HO.LAB 09:40
PROVIDERS: PCP Family Medicine; Visit Provider Nurse Practitioner Family
DX: N40.0 Benign prostatic hyperplasia without lower urinary tract symptoms (principal)
CPT/HCPCS: 36415; 84153

== ENCOUNTER 2024-06-07 09:11 | Outpatient (AMB) | payer MEDICAID, SELFPAY ==
--- NOTE | 2024-06-07 09:11 | A.OFFVIS_ITS ---
Intake Visit Reasons: 1y/PSA/US Intake Note: Patient presents today for follow up on: kidney cysts, ultrasound and lab results Imaging Completed: 05/28/24 PSA: 0.64 Urology Medications: none Blood Thinner: none Welding Operator Required: Yes Welding Operator Services: Welding Operator Present Welding Operator Name: Fernie Accompanied by: Self / Same As Patient Allergies No Known Allergies [No Known Allergies*] Allergy (Verified 06/07/24 10:13) Medication List - Last Reconciled 06/07/24 by CARO Sanders- albuterol sulfate 90 mcg/actuation (ProAir HFA) 2 puffs inhalation Q6H PRN amitriptyline 50 mg PO BEDTIME atorvastatin 80 mg PO BEDTIME bumetanide 1 mg PO DAILY 30 days buspirone 15 mg PO BID cholecalciferol (vitamin D3) 50 mcg PO DAILY epinephrine IM DIRECTED escitalopram oxalate 20 mg PO DAILY etanercept (Enbrel SureClick) 50 mg subcut QWEEK fluticasone propion-salmeterol 250-50 mcg/dose (Advair Diskus) 1 ea PO BID fluticasone propionate 50 mcg/actuation 1 spray intranasal DAILY ibuprofen 600 mg PO TID levothyroxine 88 mcg PO DAILY loratadine 10 mg PO DAILY magnesium oxide 400 mg PO DAILY 90 days magnesium oxide 400 mg PO DAILY omeprazole 40 mg PO DAILY prednisone 40 mg (2 x 20 mg) PO DAILY 3 days pregabalin 225 mg PO BID pregabalin 150 mg PO BID riboflavin (vitamin B2) 400 mg PO DAILY 90 days sucralfate 10 mL PO BID HPI Comments Details: Kvng is a very pleasant 59-year-old Taiwanese-speaking male patient of Dr. Vu. He has a past medical history of asthma, chronic pain, fibromyalgia, degenerative disc disease, depression, fatty liver, hypertension, hypothyroidism, kidney cysts, mood disorder, DAYNA on CPAP, pre diabetes,and psoriasis. He presents to the office today for a follow up. In discussion with the patient today he reports since his last office visit here a year ago he has had no bothersome urinary issues or concerns. He does however discussed his ongoing issues with his sciatica. Recent renal imaging results reviewed with the patient today. Bilateral kidneys with no hydronephrosis. 1.3 cm left mid pole cyst with calcifications measuring 2 to 3mm. PSAs are as follows: 8/23 0.8, 06/01 0.6 In office urinalysis results reviewed with the patient today. He denies urinary urgency, urinary frequency, incontinence, nocturia, hematuria, dysuria, foul smelling urine, changes to urinary stream, flank pain, fever, and or chills. He is happy with his current voiding parameters. We discussed at length nephrolithiasis. He otherwise denies any other issues or concerns. 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 Venous congestion Pain in right lower leg Lipoma of scalp Kidney cysts Spondylosis of thoracic spine Spondylosis of lumbar spine Schatzki's ring Fatty liver HTN (hypertension) Pre-diabetes Dysphagia Asthma Hx of chest pain DAYNA on CPAP Hypothyroid Psoriasis Psoriatic arthritis Chronic pain Mood disorder Depression Avascular necrosis Chronic pain syndrome Spondylosis of lumbar region without myelopathy or radiculopathy Spondylosis, cervical Degeneration, intervertebral disc, cervical Surgical History History of back surgery History of surgery Status post excision of lipoma (~10/21/21) Status post cardiac catheterization Hx of cardiac cath H/O neck surgery Hx of hand surgery Hx of endoscopy History of colonoscopy Family History Father Cirrhosis Alcoholism Mother Diabetes HTN (hypertension) Parkinson disease Brother Cirrhosis Alcoholism Social History Household Members: Spouse and Children Are you a primary summer child caregiver to a significant other at home: No Do you presently have visiting nurse or other home services: No Alcohol intake: never Patient Tobacco Use Status: Former Tobacco user Tobacco use type: Cigarette Second Hand Smoke Exposure: No Current occupational status: disabled Current occupation: rt handed Review of Systems Const All systems reviewed & are unremarkable except as noted in HPI and below Reports as per HPI Eyes Reports no additional complaints ENT Reports no additional complaints Card Reports as per HPI Resp Reports as per HPI GI Reports as per HPI Reports as per HPI Musc Reports as per HPI Neuro Reports as per HPI Endo Reports as per HPI Physical Exam Const General: cooperative, healthy appearing, comfortable, no acute distress, well developed, alert and awake Orientation/consciousness: patient oriented x3 Limitations: ambulation with cane HEENT Head: Yes normal to inspection, Yes normocephalic and Yes atraumatic Ears: hearing grossly normal bilaterally Eyes General: appearance normal, both eyes and all related structures Neck Neck: Yes normal visual inspection and Yes trachea midline Chest Chest palpation & inspection: normal inspection of the chest Resp Effort & Inspection: normal respiratory effort and able to speak in complete sentences Cardio Rate: regular rate GI Inspection: Yes normal to inspection General: Yes no CVA tenderness Male General Exam: Yes normal external exam Penis: normal penis Meatus: meatus normal Scrotum: scrotum normal Testes: epididymal tenderness (mild tenderness noted bilaterally) bilateral Back/Spine/Pelvis Back: no CVA tenderness Skin General skin exam: no rashes or lesions noted Neuro General: patient oriented x3 Extrem General: Yes normal to inspection Psych Appearance: grossly normal and well kempt Mental Status: mental status grossly normal Speech and movement: Normal speech and movement present and Clear speech present Affect: normal affect Attitude: cooperative Thought process: Normal thought process present Thought content: Normal thought content present Insight: Fair insight present (Psych) Judgement: Fair judgement present (Psych) Results AMB Urinalysis, Automated UA Leukoctes 0 Randy/uL Last Edit by Moriah Aguilera on 06/07/24 09:29 UA Nitrite Last Edit by Moriah Aguilera on 06/07/24 09:29 UA Urobilinogen 0.2 mg/dL Last Edit by Moriah Aguilera on 06/07/24 09:29 UA Protein 0 mg/dL Last Edit by Moriah Aguilera on 06/07/24 09:29 UA pH 7.5 Last Edit by Moriah Aguilera on 06/07/24 09:29 UA Blood 0 Amaury/uL Last Edit by Moriah Aguilera on 06/07/24 09:29 UA Specific [place] 1.015 Last Edit by Moriah Aguilera on 06/07/24 09:29 UA Ketone Last Edit by Moriah Aguilera on 06/07/24 09:29 UA Bilirubin 0 mg/dL Last Edit by Moriah Aguilera on 06/07/24 09:29 UA Glucose 0 mg/dL Last Edit by Moriah Aguilera on 06/07/24 09:29 Results Reviewed Results Reviewed: Laboratory Last Values Urine pH (Auto) 7.5 06/07/24 09:28 Specific [place] (Auto) 1.015 06/07/24 09:28 Urine Protein (Auto) 0 mg/dL 06/07/24 09:28 Glucose (UA)(Auto) 0 mg/dL 06/07/24 09:28 Urine Blood (Auto) 0 Amaury/uL 06/07/24 09:28 Urine Bilirubin (Auto) 0 mg/dL 06/07/24 09:28 Urine Urobilinogen (Auto) 0.2 mg/dL 06/07/24 09:28 Leukocyte Esterase (Auto) 0 Randy/uL 06/07/24 09:28 Date of Service: 05/28/24 EXAMINATION: US RETROPERITONEAL COMPLETE (RENAL) FINDINGS: RIGHT KIDNEY: 9.5 x 5.9 x 5.2 cm (SAG x AP x TRV). No hydronephrosis. Renal cortical thickness is normal. Limited visualization. LEFT KIDNEY: 11.0 x 5.5 x 4.1 cm (SAG x AP x TRV). No hydronephrosis. No renal calculi. Renal cortical thickness is normal. Limited visualization. 1.3 x 0.9 x 1.2 cm left mid pole exophytic cortical cyst with adjacent calcifications measuring 0.3 cm and 0.2 cm. IMPRESSION: 1.3 cm left mid pole exophytic cortical cyst with adjacent calcifications measuring 0.3 cm and 0.2 cm. This was not characterized on recent CT scan reports. Prior ultrasound and MRI images are not available at this time for direct comparison. Assessment & Plan Assessment & Plan (1) Kidney cysts: Code(s): N28.1 - Cyst of kidney, acquired Category: Medical (2) Nephrolithiasis: Code(s): N20.0 - Calculus of kidney Category: Medical Plan In office urinalysis results reviewed with the patient today; as noted above. Recent PSA results reviewed with the patient today; as noted above. Recent renal imaging results reviewed with the patient today; as noted above; discussed further workup to include MRI renal mass protocol versus surveillance monitoring; risks and benefits of these interventions were discussed. Patient currently denies any bothersome urinary issues or concerns. He reports be happy with current voiding parameters. Discussed at length nephrolithiasis Discussed, educated, and stressed the importance of adequate hydration in relation to nephrolithiasis as well as overall health and well-being. Will obtain renal ultrasound and PSA in 1 year Follow-up in 1 year with imaging and labs to be completed prior; or sooner with any issues, concerns, and or questions. Orders: Orders US renal BI 1 Year N20.0 - Calculus of kidney AMB Urinalysis Automated 06/07/24 Z13.9 - Encounter for screening, unspecified Prostate Specific Antigen 1 Year N40.0 - Benign prostatic hyperplasia without lower urinary tract symptoms Patient Instructions: The patient had an opportunity to ask questions regarding the treatment plan. All questions were answered. Physical exam, labs, and imaging were discussed and reviewed in detail. As well as risks, benefits, and discussion of treatment choices. No major barriers to understanding were identified. The patient expressed understanding and agreement with the above treatment plan. The patient was made aware they should contact our office by phone for worsening of their current condition, the appearance of new symptoms, or with any questions or concerns. Compliance is encouraged with any medications and follow up testing that is ordered. It is a privilege to be allowed the opportunity to participate in? your urological care.? Again, if you have any questions or conc erns If you have any questions or concerns please do not hesitate to contact me. The office is [phone]. This note is constructed using voice recognition software. While every effort has been made to ensure accuracy commercial technician errors may have been included. Yours sincerely, ROWENA Sanders Coding Level of Care Code Est Pt Level 3 (11355) Complex EM visit Add On G2211 Diagnoses Kidney cysts N28.1 Nephrolithiasis N20.0
== END 2024-06-07 10:01 | disposition home or self-care (01) ==
PROVIDERS: PCP Family Medicine; Visit Provider Nurse Practitioner Family
DX: N28.1 Cyst of kidney, acquired (principal); N20.0 Calculus of kidney
CPT/HCPCS: 99213

== ENCOUNTER → 2024-06-07 09:11 | Outpatient (BNVA) | payer MEDICAID, SELFPAY | PROVIDERS: PCP Family Medicine; Visit Provider Nurse Practitioner Family | DX: N28.1 Cyst of kidney, acquired (principal); N20.0 Calculus of kidney | CPT/HCPCS: 81003; 99212 ==

== ENCOUNTER 2024-06-25 15:03 | Outpatient (REF) | payer MEDICAID, SELFPAY ==
--- NOTE | ~2024-06-25 | XR_ITS ---
EXAMINATION: XR HAND, LEFT CLINICAL INFORMATION: Pain at base of thumb and involving MCP joints. 59-year-old male. Polyarthralgia, psoriasis. COMPARISON: 05/09/2019, 05/02/2018. TECHNIQUE: PA, lateral, and oblique views of the left hand. FINDINGS: -No fracture, dislocation, or focal bony abnormality. -Subtle periarticular erosions present involving the DIP joints of the second through fifth digits. -Subarticular tiny cysts/erosions involving the fifth PIP joints second, third, and fifth digits. -There is joint space narrowing with subtle osteophytic spurs involving the DIP joints diffusely, and there is joint space narrowing involving the thumb interphalangeal joint. -Mild to moderate degenerative arthrosis at the first CMC joint. -Subchondral cyst in the mid scaphoid bone. -The remainder of the MCP joints appear normal. -The carpus appears normal. -Soft tissues demonstrate subtle vascular calcifications but are otherwise normal. XR/XR hand LT min 3V IMPRESSION: 1. Findings of periarticular erosions/inflammatory arthropathy involving the DIP joints of the second through fifth digits, and the PIP joints of the third and fifth digits. Subchondral tiny cysts/erosions also seen in the mid scaphoid. 2. Degenerative arthritis to a mild to moderate degree at the first CMC joint, as well as the interphalangeal joint of the first digit. 3. Above findings appear progressed from the prior examination, at all sites of involvement. 4. No acute or suspicious bony lesions. Electronically signed by: Kenny Ho MD 08/01/2024 05:29 PM EDT
--- NOTE | ~2024-06-25 | XR_ITS ---
EXAMINATION: XR HAND, RIGHT CLINICAL INFORMATION: Pain at base of thumb and involving MCP joints. 59-year-old male. Polyarthralgia, psoriasis. COMPARISON: 05/09/2019, 05/02/2018. TECHNIQUE: PA, lateral, and oblique views of the right hand. FINDINGS: -No fracture, dislocation, or focal bony abnormality. -Subtle periarticular erosions present involving the DIP joints of the second, third, and fifth digits. -Subarticular tiny cysts/erosions involving the fifth PIP joint proximal phalanx, and distal third metacarpal at the third MCP joint. -There is joint space narrowing with subtle osteophytic spurs involving the DIP joints diffusely, with relative sparing of the fourth digit, and there is joint space narrowing involving the thumb interphalangeal joint. -Mild degenerative arthrosis at the first CMC joint, with a small subchondral cystic focus at the base of the first metacarpal. -The remainder of the MCP joints appear normal. -The carpus appears normal. -Soft tissues demonstrate subtle vascular calcifications but are otherwise normal. XR/XR hand RT min 3V IMPRESSION: 1. Findings of periarticular erosions/inflammatory arthropathy involving the DIP joints of the second, third, and fifth digits, and the PIP joints of the third and fifth digits. 2. Degenerative arthritis to a mild degree at the first CMC joint, as well as the interphalangeal joint of the first digit. 3. Above findings appear stable from the prior exam. 4. No acute or suspicious bony lesions. Electronically signed by: Kenny Ho MD 08/01/2024 05:22 PM EDT
== END 2024-06-25 15:04 | disposition home or self-care (01) ==
LOC: HO.XRAY 15:03
PROVIDERS: PCP Family Medicine; Visit Provider Internal Medicine
DX: M79.641 Pain in right hand (principal); M79.642 Pain in left hand
CPT/HCPCS: 73130

== ENCOUNTER → 2024-06-25 15:06 | Outpatient (BNV) | payer MEDICAID, SELFPAY | PROVIDERS: PCP Family Medicine; Visit Provider Radiology Diagnostic Radiology | DX: M79.641 Pain in right hand (principal); M79.642 Pain in left hand | CPT/HCPCS: 73130 ==

== ENCOUNTER 2024-07-09 09:17 | Outpatient (AMB) | payer MEDICAID, SELFPAY ==
[2024-07-09 09:21] VITALS: BP 124/82; PULSE 69; O2SAT 97; BMI 31.2
--- NOTE | 2024-07-09 09:21 | A.OFFVIS_ITS ---
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 Accompanied by: Spouse Allergies No Known Allergies [No Known Allergies*] Allergy (Verified 07/09/24 09:42) Medication List - Last Reconciled 07/09/24 by CARO Cunningham albuterol sulfate 90 mcg/actuation (ProAir HFA) 2 puffs inhalation Q6H PRN amitriptyline 50 mg PO BEDTIME atorvastatin 80 mg PO BEDTIME bumetanide 1 mg PO DAILY 30 days buspirone 15 mg PO BID cholecalciferol (vitamin D3) 50 mcg PO DAILY epinephrine IM DIRECTED escitalopram oxalate 20 mg PO DAILY etanercept (Enbrel SureClick) 50 mg subcut QWEEK fluticasone propion-salmeterol 250-50 mcg/dose (Advair Diskus) 1 ea PO BID fluticasone propionate 50 mcg/actuation 1 spray intranasal DAILY ibuprofen 600 mg PO TID levothyroxine 88 mcg PO DAILY loratadine 10 mg PO DAILY magnesium oxide 400 mg PO DAILY 90 days magnesium oxide 400 mg PO DAILY omeprazole 40 mg PO DAILY prednisone 40 mg (2 x 20 mg) PO DAILY 3 days pregabalin 225 mg PO BID riboflavin (vitamin B2) 400 mg PO DAILY 90 days sucralfate 10 mL PO BID HPI Comments Details: 59-yr-old male presents for f/u visit of DAYNA and headache. Pt is accompanied by his . Pt denies any significant interval medical changes. He continues to have constant neck and head pressure which can move into his face, and at times the neck has painful clicking which radiates up the back of the head, more so on the right, which is a stabbing pain and also into his shoulders. He is generally photophobic. Headache is a/w photophobia, phonophobia, nausea, brain fog, activity intolerance. Sometimes he cannot keep his glasses on d/t allodynia. He states the headache intensity varies- moderate- severe depending in the time. The headache makes it difficult to sleep. Is taking Amitriptyline at times, as it is not tolerated- makes him too sleepy. He states he is no longer seeing pain management. He is f/b rheumatolgy for psoriatric arthitis. He is f/b ENT for Mild esophageal dysmotility, dysphagia, globus sensation, hoarseness. Nov 2023, MR/MR head/brain wo con IMPRESSION: No acute intracranial process. Normal MRI of the brain. Upper cervical spondylosis. 11/16/23, CT/CT soft tissue neck w IV con IMPRESSION: 1. There is no cervical lymphadenopathy. No masses are demonstrated in the neck. 2. The study redemonstrates the sequelae of the ACDF at C5-C6 and C6-C7. There is marked narrowing of intervertebral disc height at C4-C5. 3. There is a relatively well-defined area of enhancement in the right floor of mouth, which may be consistent with a varix; this is unchanged. Pt reports he continues to have some difficulty breathing when he uses his CPAP. Feels the pressure is too strong. [employer] Compliance Report Usage 06/09/2024 - 07/08/2024 Usage days 29/30 days (97%) >= 4 hours 29 days (97%) < 4 hours 0 days (0%) Usage hours 181 hours 55 minutes Average usage (total days) 6 hours 4 minutes Average usage (days used) 6 hours 16 minutes Median usage (days used) 6 hours 12 minutes Total used hours (value since last reset - 07/08/2024) 4,801 hours [employer] 11 AutoSet Serial number [id number] Mode AutoSet Min Pressure 6 cmH2O Max Pressure 10 cmH2O EPR Ramp Only EPR level 2 Response Soft Therapy Pressure - cmH2O Median: 7.1 95th percentile: 9.0 Maximum: 9.6 Leaks - L/min Median: 7.1 95th percentile: 29.8 Maximum: 42.5 Events per hour AI: 0.4 HI: 0.2 AHI: 0.6 Apnea Index Central: 0.1 Obstructive: 0.3 Unknown: 0.0 RERA Index 0.3 PFSH Medical History Piriformis syndrome of right side Long-term use of immunosuppressant medication 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 Venous congestion Pain in right lower leg Lipoma of scalp Kidney cysts Spondylosis of thoracic spine Spondylosis of lumbar spine Schatzki's ring Fatty liver HTN (hypertension) Pre-diabetes Dysphagia Asthma Hx of chest pain DAYNA on CPAP Hypothyroid Psoriasis Psoriatic arthritis Chronic pain Mood disorder Depression Avascular necrosis Chronic pain syndrome Spondylosis of lumbar region without myelopathy or radiculopathy Spondylosis, cervical Degeneration, intervertebral disc, cervical Surgical History History of back surgery History of surgery Status post excision of lipoma (~10/21/21) Status post cardiac catheterization Hx of cardiac cath H/O neck surgery Hx of hand surgery Hx of endoscopy History of colonoscopy Family History Father Cirrhosis Alcoholism Mother Diabetes HTN (hypertension) Parkinson disease Brother Cirrhosis Alcoholism Social History Household Members: Spouse and Children Are you a primary palliative care physician to a significant other at home: No Do you presently have visiting nurse or other home services: No Alcohol intake: never Patient Tobacco Use Status: Former Tobacco user Tobacco use type: Cigarette Second Hand Smoke Exposure: No Current occupational status: disabled Current occupation: rt handed Physical Exam Vital Signs: Last Vital Signs Pulse 69 07/09/24 09:21 BP 124/82 07/09/24 09:21 Pulse Ox 97 07/09/24 09:21 Oxygen Delivery Method Room Air 07/09/24 09:21 BMI result Body Mass Index 31.2 Const General: cooperative and no acute distress Orientation/consciousness: patient oriented x3 Resp Effort & Inspection: normal respiratory effort and able to speak in complete sentences Neuro Other: Mild intermittent left buccal involuntary spasm. Bilateral posterior cervical tightness. Cervical ROM: limited, especially in extension which elicits radiating pain up neck into left occipital region Biltaerl Spurling: abnormal, induces pain running up/down neck BUE MS 5-/5 BLE MS 5-/5. Stands slowly, steady gait w/ cane. General: patient oriented x3 Cranial nerves: Yes CN's II-XII intact bilaterally Cognition (Neuro): normal cognition Psych Appearance: grossly normal Mental Status: mental status grossly normal Speech and movement: Clear speech present Affect: normal affect Attitude: cooperative Assessment & Plan Assessment & Plan (1) DAYNA (obstructive sleep apnea): Comment: On CPAP. Code(s): G47.33 - Obstructive sleep apnea (adult) (pediatric) Category: Medical (2) Chronic migraine without aura: Code(s): G43.709 - Chronic migraine without aura, not intractable, without status migrainosus Category: Medical (3) Cervicalgia of idprchbe-rwwucad-lemlx region: Code(s): M54.2 - Cervicalgia Category: Medical (4) Bilateral occipital neuralgia: Code(s): M54.81 - Occipital neuralgia Category: Medical Plan Continue APAP, however adjusted settings from 6-10 cmH2O w/ EP2 and auto-ramp to 4-10 cmH2O w/ EPR 3 and ramp time 30 minutes- in hopes this improves PAP tolerance. Continue to clean and change PAP supplies routinely. For cervicialgia and occipital neuralgia s/s in setting of mild BUE weakness and and h/o ACDF at C5-C6 and C6-C7. Pt is advised to undergo f/u c-spine MRI Future consideration- referral for ON block, neurosurgery For acute chronic migraine w/o aura tx: Trial Sumatriptan 100mg tab, 1/2 - 1 tab (50-100mg) at onset of headache, may repeat in 2 hours. Max of 2 tabs (200mg) per 24 hours. May adjunct with OTC Tylenol 650-1000mg q 4-6 hours prn. Potential adverse effects of triptans, include but are not limited to nausea, fatigue, chest tightness/tingling (usually passes within a few minutes), medication overuse headaches. For chronic migraine w/o aura prevention tx: Stop Amitriptyline- not tolerated- causes excess sleepiness. Start Ajovy 225mg/1.5ml autoinjector- injection 225mg subcutaneously once a month. Potential adverse effects of Ajovy include but are not limited to injection site reactions. Pt advised Ajovy will likely require insurance prior authorization. Ajovy should be refrigerated until 1 hr prior use. Once approved and available patient would like in office injection training. Previous migraine prevention tx trials: Amitriptyline 50mg- ineffective and not tolerated. Migraine tx contraindications: Beta-blockers d/t asthma dx. Will follow-up upon review of above and patient to follow-up in clinic in 6 months or sooner prn. Orders: Orders MR cervical spine wo con Today L40.50 - Arthropathic psoriasis, unspecified, M54.2 - Cervicalgia, M54.81 - Occipital neuralgia Medications: New sumatriptan succinate (0.5 - 1 x 100 mg) 50 - 100 mg orally at onset of headache, may repeat in 2 hrs PRN; max 2 tabs per day or 4 tabs/week (may take with Ibuprofen) 30 days 12 tabs 6RF migraine headache fremanezumab-vfrm (Ajovy) administer 225mg sc q month 225 mg (1.5 mL) subcut ONCE 1.5 mL 6RF 30 days sumatriptan succinate 50 - 100 mg orally at onset of headache, may repeat in 2 hrs PRN; max 2 tabs per day or 4 tabs/week (may take with Tylenol) 12 tabs 6RF migraine headache 30 days Refilled riboflavin (vitamin B2) 400 mg PO DAILY 90 tabs 1RF 90 days magnesium oxide 400 mg PO DAILY 90 tabs 1RF 90 days Coding Level of Care Code Est Pt Level 4 (78155) Diagnoses DAYNA (obstructive sleep apnea) G47.33 Chronic migraine without aura G43.709 Cervicalgia of yingcfjv-allyhrh-dtzny region M54.2 Bilateral occipital neuralgia M54.81
== END 2024-07-09 10:54 | disposition home or self-care (01) ==
PROVIDERS: PCP Family Medicine; Visit Provider Nurse Practitioner Family
DX: G47.33 Obstructive sleep apnea (adult) (pediatric) (principal); G43.709 Chronic migraine without aura, not intractable, without status migrainosus; M54.2 Cervicalgia; M54.81 Occipital neuralgia
CPT/HCPCS: 99214

== ENCOUNTER → 2024-07-09 09:17 | Outpatient (BNVA) | payer MEDICAID, SELFPAY | PROVIDERS: PCP Family Medicine; Visit Provider Nurse Practitioner Family | DX: G47.33 Obstructive sleep apnea (adult) (pediatric) (principal); G43.709 Chronic migraine without aura, not intractable, without status migrainosus; M54.2 Cervicalgia; M54.81 Occipital neuralgia; L40.50 Arthropathic psoriasis, unspecified | CPT/HCPCS: 99212 ==

== ENCOUNTER 2024-07-16 08:56 | Day surgery (SDC) | payer MEDICAID, SELFPAY ==
--- NOTE | 2024-07-15 10:02 | HO.ANESPROP2 ---
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 (Acute) Venous congestion (Acute) Pain in right lower leg (Acute) Upper airway obstruction due to foreign body (Acute) Cervicalgia of snftvivu-xpjvvij-ityrx region (Acute) Left facial pain (Acute) Unilateral occipital headache (Acute) Malnutrition (Acute) Allergy (Acute) GERD (gastroesophageal reflux disease) (Acute) Fibromyalgia (Acute) Kidney cysts (Acute) Testicle pain (Acute) Deep inguinal pain (Acute) Osteoarthritis of right hip (Acute) Dyspnea on exertion (Acute) Right hip pain (Acute) AVN of femur (Acute) Disc degeneration, lumbar (Acute) Epigastric abdominal pain (Acute) Right flank pain (Acute) Dysphagia (Acute) Hypothyroid (Acute) Neurogenic claudication due to lumbar spinal stenosis (Acute) Neurogenic claudication (Acute) Spinal stenosis at L4-L5 level (Acute) Sacroiliac joint pain (Acute) Vocal cord dysfunction (Acute) Lumbar radiculopathy (Acute) Disc degeneration, lumbar (Acute) Liver cyst (Acute) Orthopnea (Acute) Osteoarthritis of left hip (Acute) Dyspnea (Acute) Nonalcoholic steatohepatitis (CROSS) (Acute) Leg pain (Acute) Avascular necrosis of bone of left hip (Acute) Trochanteric bursitis of left hip (Acute) Trochanteric bursitis of right hip (Acute) Liver cyst (Acute) SOB (shortness of breath) (Acute) Back pain (Acute) Right sided numbness (Acute) Patellofemoral arthritis of right knee (Acute) DAYNA (obstructive sleep apnea) (Acute) Chest pain (Acute) Status post cardiac catheterization (Acute) Lipoma of scalp (Acute) Spondylosis of thoracic spine (Acute) Spondylosis of lumbar spine (Acute) Psoriasis (Acute) Psoriatic arthritis (Acute) Chronic pain syndrome (Acute) Spondylosis of lumbar region without myelopathy or radiculopathy (Acute) Spondylosis, cervical (Acute) Degeneration, intervertebral disc, cervical (Acute) Past Medical History Medical History Piriformis syndrome of right side Long-term use of immunosuppressant medication 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 Venous congestion Pain in right lower leg Lipoma of scalp Kidney cysts Spondylosis of thoracic spine Spondylosis of lumbar spine Schatzki's ring Fatty liver HTN (hypertension) Pre-diabetes Dysphagia Asthma Hx of chest pain DAYNA on CPAP Hypothyroid Psoriasis Psoriatic arthritis Chronic pain Mood disorder Depression Avascular necrosis Chronic pain syndrome Spondylosis of lumbar region without myelopathy or radiculopathy Spondylosis, cervical Degeneration, intervertebral disc, cervical Family History Family History Father Cirrhosis Alcoholism Mother Diabetes HTN (hypertension) Parkinson disease Brother Cirrhosis Alcoholism Family history of problems with anesthesia: No Surgical History Surgical History History of back surgery History of surgery Status post excision of lipoma (~10/21/21) Status post cardiac catheterization Hx of cardiac cath H/O neck surgery Hx of hand surgery Hx of endoscopy History of colonoscopy History of Problems with Anesthesia: No Social History Social History Household Members: Spouse and Children Are you a primary laboratory animal care veterinarian to a significant other at home: No Do you presently have visiting nurse or other home services: No Alcohol intake: never Patient Tobacco Use Status: Former Tobacco user Tobacco use type: Cigarette Second Hand Smoke Exposure: No Current occupational status: disabled Current occupation: rt handed Meds Allergies Allergy/AdvReac Type Severity Reaction Status Date / Time No Known Allergies Allergy Verified 07/16/24 11:15 [No Known Allergies*] Home Medications ?Medication ?Instructions ?Recorded ?Confirmed ?Last Taken ?Type albuterol sulfate 90 mcg/actuation 2 puff inhalation Q6H PRN Wheezing 08/10/20 07/16/24 Unknown History aerosol inhaler (ProAir HFA) escitalopram oxalate 20 mg tablet 20 mg PO DAILY 08/10/20 07/16/24 03/31/22 History fluticasone propionate 50 1 spray intranasal DAILY 08/10/20 07/16/24 Unknown History mcg/actuation nasal spray,suspension buspirone 15 mg tablet 15 mg PO BID 10/27/21 07/16/24 07/08/22 07:00 History cholecalciferol (vitamin D3) 50 50 mcg PO DAILY 08/05/22 07/16/24 Unknown History mcg (2,000 unit) tablet epinephrine 0.3 mg/0.3 mL IM DIRECTED 08/05/22 07/09/24 Unknown History injection, auto-injector ibuprofen 600 mg tablet 600 mg PO TID 06/09/23 07/16/24 07/09/24 History pregabalin 225 mg capsule 225 mg PO BID 09/27/23 07/16/24 Unknown History Exam Pertinent Lab Results Pertinent Lab Results: Laboratory Tests 02/14/24 07:37 WBC 8.2 Hgb 13.7 L Hct 41.7 L Plt Count 264 Sodium 145 Potassium 4.3 Chloride 110 H Carbon Dioxide 26 BUN 17 H Creatinine 1.12 Narrative Narrative: ECHO 2022 Conclusions: - The left ventricular systolic function is normal. The calculated ejection fraction is 59% by biplane method. - No obvious valvular pathology seen on this study. 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 Venous congestion Pain in right lower leg Lipoma of scalp Kidney cysts Spondylosis of thoracic spine Spondylosis of lumbar spine Schatzki's ring Fatty liver HTN (hypertension) Pre-diabetes Dysphagia Asthma Hx of chest pain DAYNA on CPAP Hypothyroid Psoriasis Psoriatic arthritis Chronic pain Mood disorder Depression Avascular necrosis Chronic pain syndrome Spondylosis of lumbar region without myelopathy or radiculopathy Spondylosis, cervical Degeneration, intervertebral disc, cervical Family History Family History Father Cirrhosis Alcoholism Mother Diabetes HTN (hypertension) Parkinson disease Brother Cirrhosis Alcoholism Surgical History Surgical History History of back surgery History of surgery Status post excision of lipoma (~10/21/21) Status post cardiac catheterization Hx of cardiac cath H/O neck surgery Hx of hand surgery Hx of endoscopy History of colonoscopy Social History Social History Household Members: Spouse and Children Are you a primary laboratory animal care veterinarian to a significant other at home: No Do you presently have visiting nurse or other home services: No Alcohol intake: never Patient Tobacco Use Status: Former Tobacco user Tobacco use type: Cigarette Second Hand Smoke Exposure: No Current occupational status: disabled Current occupation: rt handed Meds Allergies Allergy/AdvReac Type Severity Reaction Status Date / Time No Known Allergies Allergy Verified 07/16/24 11:15 [No Known Allergies*] Home Medications ?Medication ?Instructions ?Recorded ?Confirmed ?Last Taken ?Type albuterol sulfate 90 mcg/actuation 2 puff inhalation Q6H PRN Wheezing 08/10/20 07/16/24 Unknown History aerosol inhaler (ProAir HFA) escitalopram oxalate 20 mg tablet 20 mg PO DAILY 08/10/20 07/16/24 03/31/22 History fluticasone propionate 50 1 spray intranasal DAILY 08/10/20 07/16/24 Unknown History mcg/actuation nasal spray,suspension buspirone 15 mg tablet 15 mg PO BID 10/27/21 07/16/24 07/08/22 07:00 History cholecalciferol (vitamin D3) 50 50 mcg PO DAILY 08/05/22 07/16/24 Unknown History mcg (2,000 unit) tablet epinephrine 0.3 mg/0.3 mL IM DIRECTED 08/05/22 07/09/24 Unknown History injection, auto-injector ibuprofen 600 mg tablet 600 mg PO TID 06/09/23 07/16/24 07/09/24 History pregabalin 225 mg capsule 225 mg PO BID 09/27/23 07/16/24 Unknown History Exam Airway Loose/Missing/Broken Teeth: Yes Assessment and Plan Assessment Anesthesia Assessment: Anesthesia Plan Discussed Final Anesthetic Review NPO: Yes ASA Class: III Final Preanesthetic Review: No Changes in Pt Med Stat, Meds/Allgs Chart Reviewed, Consent Obtained/Reviewed and Anes Risks/Benef Reviewed Patient Risk: Intermediate Procedure Risk: Low Anesthetic Plan Anesthetic Plan: MAC: Disposition: Standard PACU
--- NOTE | 2024-07-16 10:31 | MHC.SHP ---
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 Venous congestion Pain in right lower leg Lipoma of scalp Kidney cysts Spondylosis of thoracic spine Spondylosis of lumbar spine Schatzki's ring Fatty liver HTN (hypertension) Pre-diabetes Dysphagia Asthma Hx of chest pain DAYNA on CPAP Hypothyroid Psoriasis Psoriatic arthritis Chronic pain Mood disorder Depression Avascular necrosis Chronic pain syndrome Spondylosis of lumbar region without myelopathy or radiculopathy Spondylosis, cervical Degeneration, intervertebral disc, cervical Surgical History History of back surgery History of surgery Status post excision of lipoma (~10/21/21) Status post cardiac catheterization Hx of cardiac cath H/O neck surgery Hx of hand surgery Hx of endoscopy History of colonoscopy Allergies: Allergies Allergy/AdvReac Type Severity Reaction Status Date / Time No Known Allergies Allergy Verified 07/09/24 09:42 [No Known Allergies*] Review of Systems Review of Systems Comment: Ten point ROS negative Exam Exam Comment: Gen appear: No acute distress HEENT: no icterus Chest: No overt resp distress Abd: soft, nontender, nondistended Psych: Stable affect, answering questions appropriately Neuro: A/Ox3 noted to move all extremities spontaneously Ext: no peripheral edema Plan Diagnosis/Plan: Unchanged I have reviewed the history and physical and performed a pertinent physical examination on my patient. No changes have occurred unless specified. Time Spent With Patient Time: Total time managing care of this patient today ____ minutes.
[2024-07-16 10:57] VITALS: BP 135/87; PULSE 66; RESP 14; TEMP 36.4; O2SAT 97; BMI 31.0
[2024-07-16] MEDS: Lactated Ringers 1,000 ML 100 ML IVCONT (11:12)
[2024-07-16 12:45] VITALS: BP 127/81; PULSE 72; RESP 16; TEMP 36.1; O2SAT 94
--- NOTE | 2024-07-16 12:47 | P.OP_ITS ---
Operative Note Operative Note Date of Service: 07/16/24 Narrative: Procedure: Esophagogastroduodenoscopy Endoscopist: Patricia Muhammad MD Indication: Dysphagia, abd pain Anesthesia Provider: Dr Yo Alba Anesthesia Type: MAC ?? EGD Procedure:?? The procedure, indications, preparation and potential complications were reviewed with the patient, who indicated understanding and gave written informed consent to proceed with the help of a statistical methods teacher. A physical exam was performed. The endoscope was introduced through the mouth, and advanced to the second part of duodenum. The mucosa was carefully examined on slow withdrawal of the endoscope. The patient tolerated the procedure well. There were no immediate complications.? ? EGD Findings:? * Esophagus:? Normal mucosa noted in the entire esophagus. The Z line was at 36. There was a non-obstructing Schatzki's ring at this level. A small hiatal hernia measuring 3 cm was noted with the diaphragmatic pinch at 39 cm. Middle and lower esophagus forceps biopsies were obtained to rule out eosinophilic esophagitis. * Stomach:? Normal mucosa was noted in the stomach. Retroflexion was performed in the cardia showing Hill grade II hiatal hernia. Random gastric biopsies were taken to rule out H Pylori infection. * Duodenum:? Normal mucosa was noted in the whole of the examined duodenum. Cold forceps biopsies were taken from duodenal bulb and second portion of the duodenum to rule out celiac sprue. Additional intervention: A soft tip Savary wire was advanced through the biopsy channel of the gastroscope and left in the antrum. The gastroscope was then backed out. A Savary Marti bougie was advanced over the guidewire and the esophagus was incrementally dilated from 16 to 18 to 20 mm with no resistance felt even at 20 mm. On relook, there was no heme or tear noted. ? EGD Impressions:? * Normal esophagus mucosa (biopsy, dilation) * Non-obstructing Schatzki's ring * Normal stomach (biopsy) * Normal duodenum (biopsy) ?? Recommendations:?? * Follow biopsy results. Our office will call or send a letter with results within 7-10 days. * Consider dedicated lateral neck XRs to r/o DISH given prominent C4-5 osteophytes noted on barium study Above has been reviewed with the patient.
[2024-07-16 13:00] VITALS: BP 120/85; PULSE 76; RESP 16; O2SAT 95
[2024-07-16 13:15] VITALS: BP 141/86; PULSE 61; RESP 16; TEMP 36.2; O2SAT 99
== END 2024-07-16 13:48 | disposition home or self-care (01) ==
PROVIDERS: PCP Family Medicine; Visit Provider Internal Medicine
PROC: (CPT 43249; principal; 2024-07-16 10:20)
DX: R13.10 Dysphagia, unspecified (principal); K22.2 Esophageal obstruction; R10.13 Epigastric pain; K44.9 Diaphragmatic hernia without obstruction or gangrene; K76.0 Fatty (change of) liver, not elsewhere classified; L40.50 Arthropathic psoriasis, unspecified; G89.4 Chronic pain syndrome; G57.01 Lesion of sciatic nerve, right lower limb; M50.30 Other cervical disc degeneration, unspecified cervical region; M47.27 Other spondylosis with radiculopathy, lumbosacral region; I10 Essential (primary) hypertension; G47.33 Obstructive sleep apnea (adult) (pediatric); R73.03 Prediabetes; J45.909 Unspecified asthma, uncomplicated; Z79.620 Long term (current) use of immunosuppressive biologic; Z99.89 Dependence on other enabling machines and devices; Z98.890 Other specified postprocedural states; Z87.891 Personal history of nicotine dependence
CPT/HCPCS: 43249; 43239; 88305; 88313; 88342; J2003; J2704

== ENCOUNTER → 2024-07-16 08:56 | Outpatient (BNV) | payer MEDICAID, SELFPAY | PROVIDERS: PCP Family Medicine; Visit Provider Internal Medicine | DX: K22.2 Esophageal obstruction (principal); R10.13 Epigastric pain | CPT/HCPCS: 43239; 43248 ==

== ENCOUNTER → 2024-07-17 08:42 | Outpatient (RCR) | payer MEDICAID, SELFPAY ==
--- NOTE | 2023-03-01 10:26 | MHC.PT.EP ---
[facility] [place] [facility] [place] [facility] [place] [facility] [address] Anant Wright [address] [phone] F: [phone] F: [phone] F: [phone] F: [phone] Physical Therapy Plan of Care Date of Evaluation: Date of Surgery: Diagnosis: idiopathic aseptic necrosis of unspecified femur Assessment: Patient is a 57 year old R handed male who presents with s/s consistent with idiopathic aseptic necrosis of unspecified femur. He does not work and is currently disabled, living a mostly sedentary lifestyle, admittedly watching TV most of the day. Patient past medical history includes back procedures, fibromyalgia, and psoriatic arthritis. Current impairments include pain, posture, ROM, strength, activity tolerance and functional mobility. Functional limitations include decreased ability to stand, walk, perform standing activities, transfer and negotiate stairs. Patient is motivated with good rehab potential. Skilled PT will address impairments and functional limitations in order to achieve goals. Frequency and Duration: The patient will be seen 2x/week for 5 weeks Short Term Goals: I with HEP - 2 weeks AROM rotation 75% and pain free -3 weeks Able to walk 5 minutes without increased pain - 3 weeks Flat [employer] Jewel Goals: LEFS 24/80 - 5 weeks demo proper transfer mechanics without cues - 5 weeks Able to stand/walk > 10 minutes without increased pain - 5 weeks Treatment Plan: Modalities to reduce pain, spasms and effusion. Manual therapy to restore motion and function. Therapeutic exercise to improve strength and flexibility. Neuromuscular re-education for posture and balance. Therapeutic activities to return to functional activities of daily living. Electronically signed by: Abdullahi Oswald, PT Please sign and return to therapist. Thank you for your referral.
== END | disposition home or self-care (01) ==
LOC: HO.PTCHIC 03-01 08:52
PROVIDERS: PCP Family Medicine; Visit Provider Internal Medicine Gastroenterology
DX: M25.551 Pain in right hip (principal); M87.051 Idiopathic aseptic necrosis of right femur
CPT/HCPCS: 97110; 97163

== ENCOUNTER 2024-07-29 08:55 | Outpatient (AMB) | payer MEDICAID, SELFPAY ==
--- NOTE | 2024-07-29 08:56 | MHC.OFFVIS ---
Vital Signs 07/29/24 09:02 Height 5 ft 3 in Weight 171 lb 15.369 oz BMI 30.5 BP 115/68 Blood Pressure Location Lt brachial Position Sitting Pulse 72 Intake Visit Reasons: s/P colo; Dr. Nelson Intake Note: Kvng hernandez in the office as a follow up colonoscopy. CC: pains in the stomach, no irregular bowel movements. Car Changer Required: Yes Allergies No Known Allergies [No Known Allergies*] Allergy (Verified 07/16/24 11:15) HPI HPI s/P colo; Dr. Nelson: Details: 59 yr old m here for f/u RECAP: Saw [facility] [place] initially: c/o tightness in his throat, been on protonix for GERD, well controlled anxiety regarding swallowing and fear of choking but not actually choking. he had been told he has prominent spur in the neck which maybe causing his symptoms by his neurosurgeon CT 2018--fatty liver, liver cyst, bilobed and septated Ba swallow with prominent cricopharyngeal sphincter EGD --: LA grade A esophagitis, schatzki ring, balloon dilation w tear noted, antral erosive gastritis, bulbar duodenitis reflux changes on bx he was still c/o sx at f/u with saliva choking him, tightness PCP ordered us and pos for fatty liver, LFT have been normal. he can swallow food without any issue except for one occasion 4 d felt like some sfood stuck in stomach still taking carafate and pantopRAZOLE, feels doesn't help him seeing pain management for hip I ordered cardiac eval due to SOB,this was neg RAST testing neg OTHER DATA-- MBS ---unremarkable MRI--10/2020--Fatty liver. Several liver cysts, largest a minimally complex cyst measuring 4.5 x 3.6 cm in the right lobe of the liver. 1 cm probable complex cyst in the lower pole of the left kidney. Diverticulosis of the colon. repeat MRI 04/2021--dominant cyst central right lobe with circumscribed macrolobulated margins is without significant change in size, measuring 4.6 x 3.8 x 4.5 cm on current study. Prior measurement is 4.4 x 3.7 x 4.4 cm on MR 10/28/2020 and 3.9 x 3.2 x [address] abdomen 07/18/2019, (both prior exams remeasured in same orientation). No solid component or visible septation. EGD with dilation 05/06/21 Impression/Findings: schatzki ring esophagitis gastritis duodenitis maybe due to medications i.e CCB, SSRI GES 08/2021-- nml emptying at 4 hrs He had a lot of mucous and sputum and I had given him loratadine, pepcid A rept MRI was ordered 08/26/22 with stable liver and renal cysts Ba swallow with tab 09/2022 w/o stricture, some dysmotility noted US: 01/2023-- liver cyst and small kidney cysts, fatty liver, mild raised elastography CT 02/28- liver cysts were stable, no acute path (this CT was ordered by ED) KUB: 08/31-- moderate constipation Ba swallow: Mild to moderate cricopharyngeal achalasia, Status post anterior fusion C5-C7 without gross complication. Prominent ventral C4-C5 osteophyte without mass effect. small hiatal hernia EGD 08/01 with savary dilation: small hiatal hernia noted schatzki ring INTERIM: Not feeling so good he has pain in the right shoulder and neck last night worse with lifting arm and moving neck epigastric pain since this morning, with nausea his swallowing is still a problem, its not all the time, episodic no blood in stool, no melena he is taking omeprazole daily he has poor sleep, due to chronic body pain he has chronic nasal drip, which makes his sx worse, had relief from nasal spray in past EXAM: GENERAL: The patient is well developed and nontoxic.-obese VITAL SIGNS:see workflow HEENT: Nonicteric sclerae, PERRLA, EOMI. Oropharynx clear. Moist mucous membranes. Conjunctivae appear well perfused. No thyroid mass. CHEST: Chest wall is tender to touch HEART: Regular rate and rhythm without murmurs. LUNGS: Clear to auscultation bilaterally. ABDOMEN: Soft, positive bowel sounds, tender epigastrium, no organomegaly. SKIN: maculopapular rash on torso and back, looks like dermatitis NEUROLOGIC: Cranial nerves II-XII intact without motor/sensory deficit. psych: appropriate effect MS: para spinal tenderness, walking with stick and uncomfortable --tender neck and right shoudler reduced ROM A/P: 1/ epigastric pain, dysphagia likely from acid hyper secretion 2/ neck spasm, and shoulder pain likely MS and positional PLAN: 1/ change to esomeprazole 40 mg OD 2/ recommence eric nase nasal spray in case some fo his dysphagia sx from post nasal drip 3/ voltaren cream for shoulder and neck, ice pack, shown neck and shoudler exercises, if no better then PT 4/ trial of TCA for sleep and also in case of any functional dyspepsia PFSH Medical History Piriformis syndrome of right side Long-term use of immunosuppressant medication 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 Venous congestion Pain in right lower leg Lipoma of scalp Kidney cysts Spondylosis of thoracic spine Spondylosis of lumbar spine Schatzki's ring Fatty liver HTN (hypertension) Pre-diabetes Dysphagia Asthma Hx of chest pain DAYNA on CPAP Hypothyroid Psoriasis Psoriatic arthritis Chronic pain Mood disorder Depression Avascular necrosis Chronic pain syndrome Spondylosis of lumbar region without myelopathy or radiculopathy Spondylosis, cervical Degeneration, intervertebral disc, cervical Surgical History History of back surgery History of surgery Status post excision of lipoma (~10/21/21) Status post cardiac catheterization Hx of cardiac cath H/O neck surgery Hx of hand surgery Hx of endoscopy History of colonoscopy Family History Father Cirrhosis Alcoholism Mother Diabetes HTN (hypertension) Parkinson disease Brother Cirrhosis Alcoholism Social History Household Members: Spouse and Children Are you a primary congregational care pastor to a significant other at home: No Do you presently have visiting nurse or other home services: No Alcohol intake: never Patient Tobacco Use Status: Former Tobacco user Tobacco use type: Cigarette Second Hand Smoke Exposure: No Current occupational status: disabled Current occupation: rt handed Physical Exam Vital Signs: BMI result Body Mass Index 30.5 Assessment & Plan Assessment & Plan (1) Cervicalgia of jtqeblmv-lftxnmc-vdabn region: Code(s): M54.2 - Cervicalgia Category: Medical Plan: see above (2) GERD (gastroesophageal reflux disease): Code(s): K21.9 - Gastro-esophageal reflux disease without esophagitis Category: Medical Plan: see above Medications: New diclofenac sodium 1% (Voltaren Arthritis Pain) apply to single elbow, wrist or hand; for hand includes palm/fingers/back of hand apply to shoudler and neck 2 grams topical QID 100 grams 0RF nortriptyline 10 mg PO BEDTIME 30 caps 3RF esomeprazole magnesium 40 mg PO DAILY 90 caps 1RF fluticasone propionate 50 mcg/actuation administer into each nostril 1 spray intranasal DAILY 16 grams 2RF Discontinued omeprazole Discontinued Reason: Doctor's Order 40 mg PO DAILY 90 caps 1RF Coding Level of Care Code Est Pt Level 4 (78611) Diagnoses Cervicalgia of oawkyqzm-yacwivp-jqpuc region M54.2 GERD (gastroesophageal reflux disease) K21.9
[2024-07-29 09:02] VITALS: BP 115/68; PULSE 72; BMI 30.5
== END 2024-07-29 09:22 | disposition home or self-care (01) ==
PROVIDERS: PCP Family Medicine; Visit Provider Internal Medicine Gastroenterology
DX: M54.2 Cervicalgia (principal); K21.9 Gastro-esophageal reflux disease without esophagitis
CPT/HCPCS: 99214

== ENCOUNTER → 2024-07-29 08:55 | Outpatient (BNVA) | payer MEDICAID, SELFPAY | PROVIDERS: PCP Family Medicine; Visit Provider Internal Medicine Gastroenterology | DX: M54.2 Cervicalgia (principal); K21.9 Gastro-esophageal reflux disease without esophagitis | CPT/HCPCS: 99212 ==

== ENCOUNTER → 2024-08-04 08:43 | Outpatient (BNV) | payer MEDICAID, SELFPAY | PROVIDERS: PCP Family Medicine; Visit Provider Radiology Diagnostic Radiology | DX: M54.2 Cervicalgia (principal) | CPT/HCPCS: 72141 ==

== ENCOUNTER 2024-08-04 08:47 | Outpatient (REF) | payer MEDICAID, SELFPAY | END 2024-08-04 08:48 | disposition home or self-care (01) | LOC: HO.MRI 08:47 | PROVIDERS: PCP Family Medicine; Visit Provider Nurse Practitioner Family | DX: M54.2 Cervicalgia (principal); M54.81 Occipital neuralgia; L40.50 Arthropathic psoriasis, unspecified | CPT/HCPCS: 72141 ==

== ENCOUNTER 2024-08-08 10:35 | Outpatient (REF) | payer MEDICAID, SELFPAY ==
[2024-08-08 14:31] LABS: Rheumatoid Factor < 13.0 IU/mL (<15.0)
[2024-08-12 22:53] LABS: Cyclic Citrullinated Peptide <16 UNITS
== END 2024-08-08 10:36 | disposition home or self-care (01) ==
LOC: HO.HHCL 10:35
PROVIDERS: Visit Provider Internal Medicine
DX: M85.80 Other specified disorders of bone density and structure, unspecified site (principal)
CPT/HCPCS: 36415; 86200; 86431

== ENCOUNTER 2024-08-13 11:14 | Outpatient (REF) | payer MEDICAID, SELFPAY ==
[2024-08-13 11:51] LABS: MANUAL DIFF FLAG NO
[2024-08-13 12:25] LABS: Basophils Percent Auto 0.6 % (0-2); Eosinophils Absolute Auto 0.3 X10*3/uL (0.0-0.4); Eosinophils Percent Auto 4.3 % (0-4); Hematocrit 45.1 % (42.0-52.0); Imm Gran Abs Auto 0.02 X10*3/uL (0.00-0.03); Imm Gran Pct Auto 0.3 % (0.0-0.4); Lymphocytes Absolute Auto 3.4 X10*3/uL (1.2-4.9); Lymphocytes Percent Auto 53.2 % (20-40); Mean Corpuscular HGB Conc 33.3 g/dl (31.0-36.0); Mean Corpuscular Hemoglobin 30.6 pg (27.0-33.0); Mean Platelet Volume 9.2 fL (9.4-12.4); Monocytes Absolute Auto 0.4 X10*3/uL (0.1-1.2); Monocytes Percent Auto 6.1 % (2-11); Neutrophils Absolute Auto 2.3 x10*3/uL (2.0-8.3); Neutrophils Percent Auto 35.5 % (45-73); Platelet Count 284 X10*3/uL (160-400); Red Cell Distribution Width 13.2 % (11.0-16.0); White Blood Count 6.4 X10*3/uL (4.8-10.8)
[2024-08-13 13:05] LABS: Alanine Aminotransferase 29 U/L (0-40); Albumin Level 4.4 g/dL (3.5-5.0); Alkaline Phosphatase 83 U/L (39-117); Anion Gap 12 (12-20); Aspartate Amino Transferase 28 U/L (5-37); Bilirubin Total 0.4 mg/dL (0.0-1.0); Blood Urea Nitrogen 13 mg/dL (9-16); C Reactive Protein 0.24 mg/dL (< or = 0.50); Calcium 10.3 mg/dL (8.4-10.2); Carbon Dioxide 29 mmol/L (22-29); Chloride 106 mmol/L (96-108); Estimated Glomerular Filt Rate > 60; Glucose Random 131 mg/dL (60-115); Potassium 4.8 mmol/L (3.3-5.1); Sodium 142 mmol/L (135-145); Total Protein 7.7 g/dL (6.5-8.0)
[2024-08-13 13:07] LABS: Erythrocyte Sedimentation Rate 5 MM/HR (0-15)
[2024-08-14 08:58] LABS: HBc Num1 0.13 S/CO (0.00-0.79); HBsAGNum1 0.31 S/CO (0.00-0.99); Hepatitis A Antibody IgM 0.15 Index (0-0.79); Hepatitis B Core Antibody Nonreactive (Nonreactive); Hepatitis B Surface Antigen Negative (Negative); ~Hepatitis A Antibody IgM Nonreactive (Nonreactive); ~Hepatitis B Surface Antibody NONREACTIVE (Nonreactive); ~Hepatitis C Antibody Nonreactive (Nonreactive)
[2024-08-14 17:24] LABS: Hepatitis B Viral DNA Qn - cp NOT DETECTED Log IU/mL (NOT DETECTED); Hepatitis B Viral DNA Qn-IU/mL NOT DETECTED (NOT DETECTED)
[2024-08-20 12:38] LABS: HLA B27 Negative (Negative)
== END 2024-08-13 11:15 | disposition home or self-care (01) ==
LOC: HO.LAB 11:14
PROVIDERS: PCP Family Medicine; Visit Provider Student in an Organized Health Care Education/Training Program
DX: Z79.60 Long term (current) use of unspecified immunomodulators and immunosuppressants (principal); L40.50 Arthropathic psoriasis, unspecified; L40.9 Psoriasis, unspecified
CPT/HCPCS: 36415; 80053; 85025; 85652; 86140; 86704; 86706; 86709; 86803; 86812; 87340; 87517

== ENCOUNTER 2024-08-16 14:37 | Outpatient (AMB) | payer MEDICAID, SELFPAY ==
[2024-08-16 14:50] VITALS: BP 112/62; PULSE 72; O2SAT 96; BMI 31.4
--- NOTE | 2024-08-16 14:50 | MHC.OFFVIS ---
Vital Signs 08/16/24 14:50 Height 5 ft 3 in Weight 177 lb 0.499 oz BMI 31.4 BP 112/62 Blood Pressure Location Lt brachial Position Sitting Pulse 72 Pulse Source Pulse Oximeter Pulse Oximetry (%) 96 Oxygen Delivery Method Room Air Intake Visit Reasons: PSA Intake Note: Patient presents today for follow up on PSA and lab review, he was last seen by Kindra Morales on 02/15/24. Patient states that he is not feeling too good today, he states his arms, hands, hip, are painful, patient states he has recent x-rays of his hands for the doctor to review. Clinical Account Specialist Required: Yes Clinical Account Specialist Services: Clinical Account Specialist Present Clinical Account Specialist Name: Jaimee [id number] Allergies No Known Allergies [No Known Allergies*] Allergy (Verified 07/16/24 11:15) Medication List - Last Reconciled 08/16/24 by Cristela Dejesus MD albuterol sulfate 90 mcg/actuation (ProAir HFA) 2 puffs inhalation Q6H PRN bumetanide 1 mg PO DAILY 30 days buspirone 15 mg PO BID cholecalciferol (vitamin D3) 50 mcg PO DAILY diclofenac sodium 1% (Voltaren Arthritis Pain) 2 grams topical QID epinephrine IM DIRECTED escitalopram oxalate 20 mg PO DAILY esomeprazole magnesium 40 mg PO DAILY etanercept (Enbrel SureClick) mg subcut fluticasone propion-salmeterol 250-50 mcg/dose (Advair Diskus) 1 ea PO BID fluticasone propionate 50 mcg/actuation 1 spray intranasal DAILY ibuprofen 600 mg PO TID levothyroxine 88 mcg PO DAILY lidocaine 5% 1 patch topical DAILY loratadine 10 mg PO DAILY magnesium oxide 400 mg PO DAILY 90 days nortriptyline 10 mg PO BEDTIME pregabalin 225 mg PO BID riboflavin (vitamin B2) 400 mg PO DAILY 90 days sucralfate 10 mL PO BID sumatriptan succinate 50 - 100 mg orally at onset of headache, may repeat in 2 hrs PRN; max 2 tabs per day or 4 tabs/week (may take with Tylenol) 30 days HPI Comments Details: Patient is a 59-year-old male with psoriasis complicated by psoriatic arthritis and fibromyalgia as well as lumbar osteoarthritis who presents today for follow-up Interval History: Patient last seen 02/15/2024 with Kindra Morales. At that time patient was complaining of whole-body pain especially low back pain radiating to his legs. With respect to his psoriatic arthritis he was not consistent with his immunosuppressants and bed the decision to be better about his weekly etanercept injections. Today he complains of again whole-body pain. And low back pain. 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 Venous congestion Pain in right lower leg Lipoma of scalp Kidney cysts Spondylosis of thoracic spine Spondylosis of lumbar spine Schatzki's ring Fatty liver HTN (hypertension) Pre-diabetes Dysphagia Asthma Hx of chest pain DAYNA on CPAP Hypothyroid Psoriasis Psoriatic arthritis Chronic pain Mood disorder Depression Avascular necrosis Chronic pain syndrome Spondylosis of lumbar region without myelopathy or radiculopathy Spondylosis, cervical Degeneration, intervertebral disc, cervical Surgical History History of back surgery History of surgery Status post excision of lipoma (~10/21/21) Status post cardiac catheterization Hx of cardiac cath H/O neck surgery Hx of hand surgery Hx of endoscopy History of colonoscopy Family History Father Cirrhosis Alcoholism Mother Diabetes HTN (hypertension) Parkinson disease Brother Cirrhosis Alcoholism Social History Household Members: Spouse and Children Are you a primary pet caregiver to a significant other at home: No Do you presently have visiting nurse or other home services: No Alcohol intake: never Patient Tobacco Use Status: Former Tobacco user Tobacco use type: Cigarette Second Hand Smoke Exposure: No Current occupational status: disabled Current occupation: rt handed Review of Systems Const Details: Review of Systems Constitutional: Denies fever, chills, weight loss ENT: Denies vision changes, eye pain or eye redness, dental caries, dry mouth GI: Denies nausea, vomiting, diarrhea, abdominal pain, change in BM Pulm: Denies SOB, DIAZ, hemoptysis, wheezing Cards: Denies chest pain, palpitations Skin: Denies Raynaud's, rash, nail changes, photosensitivity, PERSONAL INJURY LITIGATION PARALEGAL: Denies headaches, weakness, paresthesias, recurrent falls MSK: as per HPI All other systems reviewed and are unremarkable except noted above Physical Exam Vital Signs: Last Vital Signs Pulse 72 08/16/24 14:50 BP 112/62 08/16/24 14:50 Pulse Ox 96 08/16/24 14:50 Oxygen Delivery Method Room Air 08/16/24 14:50 BMI result Body Mass Index 31.4 Physical Examination CONSTITUITIONAL Patient alert and cooperative. Well appearing and in no apparent painful distress HEENT Conjunctiva and sclera clear. ?Pupils equal round and reactive to light. ?No lymphadenopathy. ?Normal dentition. No oral or nasal ulcers noted. No evidence of discoid rash to the vidal of ears CHEST/RESPIRATORY SYSTEM Normal respiratory effort and able to speak in complete sentences. ?Clear to auscultation bilaterally. ?No crackles, rales, rhonchi, wheezes heard. CARDIAC SYSTEM Regular rate and rhythm. ?S1 and S2 heard no murmurs. ?Radial pulses intact bilaterally MSK Hands: ?Good fly fishing guide strength bilaterally - 5/5. ?Heberden's nodes noted to DIPs joints no tenderness to palpation of his DIPs joints. No tenderness to deep palpation of PIP joints. No tenderness to palpation of MCPs. Wrists: ?Full range of motion at the wrists without pain. ?No tenderness to palpation or synovitis noted to the wrists. Elbows: Full range of motion without pain. No tenderness, weakness, swelling, increased warmth or erythema. Shoulders: Full range of motion without pain. No tenderness, weakness, swelling, increased warmth or erythema. Knees: ?Full range of motion. ?No tenderness, swelling, increased warmth or erythema.?No effusion or crepitations Ankles: Full range of motion. ?No tenderness, swelling, increased warmth or erythema.? Tender points:??Tenderness to of the neck, shoulders, chest, elbows, hips, buttocks or knees. SKIN Skin intact without rashes. Results Reviewed Results Reviewed: Laboratory Tests 08/13/24 11:49 WBC 6.4 RBC 4.90 Hgb 15.0 Hct 45.1 Plt Count 284 ESR 5 Sodium 142 Potassium 4.8 Chloride 106 Carbon Dioxide 29 BUN 13 Creatinine 1.05 C-Reactive Protein 0.24 XR Right Hand 06/2024 IMPRESSION: 1. Findings of periarticular erosions/inflammatory arthropathy involving the DIP joints of the second, third, and fifth digits, and the PIP joints of the third and fifth digits. 2. Degenerative arthritis to a mild degree at the first CMC joint, as well as the interphalangeal joint of the first digit. 3. Above findings appear stable from the prior exam. 4. No acute or suspicious bony lesions. XR Left Hand 06/2024 MPRESSION: 1. Findings of periarticular erosions/inflammatory arthropathy involving the DIP joints of the second through fifth digits, and the PIP joints of the third and fifth digits. Subchondral tiny cysts/erosions also seen in the mid scaphoid. 2. Degenerative arthritis to a mild to moderate degree at the first CMC joint, as well as the interphalangeal joint of the first digit. 3. Above findings appear progressed from the prior examination, at all sites of involvement. 4. No acute or suspicious bony lesions. Assessment & Plan Assessment & Plan (1) Psoriatic arthritis: Comment: Methotrexate: dates unknown Enbrel: 06/2019-present Code(s): L40.50 - Arthropathic psoriasis, unspecified Category: Medical Plan: #Psoriatic Arthritis Patient with psoriatic arthritis currently in remission. His pain is currently complicated by fibromyalgia and osteoarthritis. It is concerning that his left hand has shown some progression of his arthritis compared to his right hand which is stable. Currently there is no activity on examination and his inflammatory markers are normal. We will continue with Enbrel for now. (2) Fibromyalgia: Code(s): M79.7 - Fibromyalgia Category: Medical Plan: #Fibromyalgia Patient still with fibromyalgia type of pain. Recommended Robaxin to help with muscle relaxation. I impressed upon him the importance of stretching as tense muscles will worsen fibromyalgia pain. (3) Osteoarthritis involving multiple joints on both sides of body: Code(s): M15.9 - Polyosteoarthritis, unspecified Category: Medical Plan: #Polyarticular OA Patient with polyarticular osteoarthritis. We will trial Celebrex to see if this helps with his pain. 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 He had injections in the past and they were helpful him may want it now again (5) Encounter for monitoring immunomodulating therapy: Code(s): Z51.81 - Encounter for therapeutic drug level monitoring; Z79.899 - Other assisted (current) drug therapy Category: Medical Plan: #Long-term Use of TNF Inhibitors: Enbrel Discussed with the patient the benefits and risks of TNF inhibitors for the management of the rheumatic condition Benefits include reduce pain, maintenance of remission and reduction of flares as well as ?progression of the disease Risks include injection sites/infusion reactions, serious infections (such as bacterial infections, opportunistic infections), malignancy, delaminating syndromes, autoimmune phenomena, CHF exacerbations, palmar plantar psoriasis and cytopenias Recommended rotating injection sites, and holding medication during and for up to 1 week after resolution of a febrile illness or open skin wound Plan I spent 35 minutes reviewing the record and labs, seeing the patient, discussing the treatment plan and documenting in the medical record ? Orders: Orders Hepatitis A,B,C Profile 4 Months L40.50 - Arthropathic psoriasis, unspecified Complete Blood Count Auto Diff 4 Months L40.50 - Arthropathic psoriasis, unspecified Comprehensive Met. Panel 4 Months L40.50 - Arthropathic psoriasis, unspecified C Reactive Protein 4 Months L40.50 - Arthropathic psoriasis, unspecified Erythrocyte Sedimentation Rate Today L40.50 - Arthropathic psoriasis, unspecified, Z51.81 - Encounter for therapeutic drug level monitoring, Z79.899 - Other long term care pharmacist (current) drug therapy Referrals Pain Management Referral M54.9 - Dorsalgia, unspecified, R20.0 - Anesthesia of skin Pain Management Referral M47.27 - Other spondylosis with radiculopathy, lumbosacral region Medications: New celecoxib (Celebrex) 200 mg PO BID 180 caps 1RF M15.9 - Polyosteoarthritis, unspecified methocarbamol 500 mg PO BEDTIME 90 days 90 tabs 1RF M79.7 - Fibromyalgia Coding Level of Care Code Est Pt Level 4 (67281) Complex EM visit Add On G2211 Diagnoses Psoriatic arthritis L40.50 Fibromyalgia M79.7 Osteoarthritis involving multiple joints on both sides of body M15.9 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
== END 2024-08-16 15:25 | disposition home or self-care (01) ==
PROVIDERS: PCP Family Medicine; Visit Provider Student in an Organized Health Care Education/Training Program
DX: L40.50 Arthropathic psoriasis, unspecified (principal); M79.7 Fibromyalgia; M15.9 Polyosteoarthritis, unspecified; M47.27 Other spondylosis with radiculopathy, lumbosacral region; Z51.81 Encounter for therapeutic drug level monitoring; Z79.899 Other long term (current) drug therapy
CPT/HCPCS: 99214

== ENCOUNTER → 2024-08-16 14:37 | Outpatient (BNVA) | payer MEDICAID, SELFPAY | PROVIDERS: PCP Family Medicine; Visit Provider Student in an Organized Health Care Education/Training Program | DX: L40.50 Arthropathic psoriasis, unspecified (principal); M79.7 Fibromyalgia; M15.9 Polyosteoarthritis, unspecified; M47.27 Other spondylosis with radiculopathy, lumbosacral region; Z51.81 Encounter for therapeutic drug level monitoring; Z79.899 Other long term (current) drug therapy | CPT/HCPCS: 99212 ==

== ENCOUNTER 2024-09-19 08:43 | Outpatient (AMB) | payer MEDICAID, SELFPAY ==
[2024-09-19 09:21] VITALS: BP 158/77; PULSE 86; O2SAT 98; BMI 26.0
--- NOTE | 2024-09-19 09:21 | A.OFFVIS_ITS ---
Vital Signs 09/19/24 09:21 Height 5 ft 3 in Weight 147 lb BMI 26.0 BP 158/77 H Blood Pressure Location Lt brachial Position Sitting Pulse 86 Pulse Oximetry (%) 98 Oxygen Delivery Method Room Air Intake Visit Reasons: Dorsalgia Allergies No Known Allergies [No Known Allergies*] Allergy (Verified 09/19/24 09:22) Medication List - Last Reconciled 09/19/24 by Catrina Maloney, ASSISTANT PARALEGAL albuterol sulfate 90 mcg/actuation (ProAir HFA) 2 puffs inhalation Q6H PRN bumetanide 1 mg PO DAILY 30 days buspirone 15 mg PO BID celecoxib (Celebrex) 200 mg PO BID cholecalciferol (vitamin D3) 50 mcg PO DAILY diclofenac sodium 1% (Voltaren Arthritis Pain) 2 grams topical QID epinephrine IM DIRECTED escitalopram oxalate 20 mg PO DAILY esomeprazole magnesium 40 mg PO DAILY etanercept (Enbrel SureClick) mg subcut fluticasone propion-salmeterol 250-50 mcg/dose (Advair Diskus) 1 ea PO BID fluticasone propionate 50 mcg/actuation 1 spray intranasal DAILY levothyroxine 88 mcg PO DAILY lidocaine 5% 1 patch topical DAILY loratadine 10 mg PO DAILY magnesium oxide 400 mg PO DAILY 90 days methocarbamol 500 mg PO BEDTIME 90 days nortriptyline 10 mg PO BEDTIME pregabalin 225 mg PO BID riboflavin (vitamin B2) 400 mg PO DAILY 90 days sucralfate 10 mL PO BID sumatriptan succinate 50 - 100 mg orally at onset of headache, may repeat in 2 hrs PRN; max 2 tabs per day or 4 tabs/week (may take with Tylenol) 30 days HPI Comments Details: Kvng is is in the office today to discuss to pain generators. He reports on continuous and persistent pain in the back, he reports a new pain in the neck, cervicalgia. He with the lower back pain was in my office for very long period of time. He received multiple procedures including medial branch blocks with no improvements transforaminal epidural steroid injections with no improvements, he went for mild procedure which resulted in no improvement of his pain, he went for a trial of Nevro spinal cord stimulator and reported no more than 30% pain improvement. We tried pain pump trial procedures on him twice once with hydromorphone and once with fentanyl. On both times he reported excellent 100% pain relief in the lower back however he reported significant itching requiring administration of Narcan intranasally. Therefore the effect of the opioid medication was eliminated. He complains today on severe cervicalgia which overwhelms the pain in the lower back, he reports that he went for the MRI of the cervical spine, the MRI is available in the chart however it is not read by radiologist. I personally examined the MRI and the multiple degenerative changes noted in the image. Degenerative disc disease, straightening of lumbar lordosis, and vacuum phenomenon at C4-C5 disc as well as multiple degenerative changes which would be noted in the radiology note. However on the physical exam today as below I dissected the patient has facetogenic pain of the upper facet joints. He reports pain aggravation with flexing head forward, he also reports pain aggravation with axial compression on the head. I offered this patient diagnostic C2, C3, C4 diagnostic medial branch block bilateral. If this procedure will help his pain in the neck with radiation to the back of his head I will schedule him for sprint PNS C3 bilateral. The procedure will be done without sedation. After that we will return to the issue of the lower back pain which is now is not bothering him as much as cervicalgia. I will propose the trial with bupivacaine. However his psychological evaluation most likely is and therefore we nee d to perform psychological evaluation. At the same time today he stated that he feels weakness in the right lower extremity and minimal numbness. This may be secondary to root compressions in the lumbar spine. I will schedule him for the MRI of the lumbar spine. Minimally invasive neurosurgery maybe considered if there are severe nerve root compressions. 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 Venous congestion Pain in right lower leg Lipoma of scalp Kidney cysts Spondylosis of thoracic spine Spondylosis of lumbar spine Schatzki's ring Fatty liver HTN (hypertension) Pre-diabetes Dysphagia Asthma Hx of chest pain DAYNA on CPAP Hypothyroid Psoriasis Psoriatic arthritis Chronic pain Mood disorder Depression Avascular necrosis Chronic pain syndrome Spondylosis of lumbar region without myelopathy or radiculopathy Spondylosis, cervical Degeneration, intervertebral disc, cervical Surgical History History of back surgery History of surgery Status post excision of lipoma (~10/21/21) Status post cardiac catheterization Hx of cardiac cath H/O neck surgery Hx of hand surgery Hx of endoscopy History of colonoscopy Family History Father Cirrhosis Alcoholism Mother Diabetes HTN (hypertension) Parkinson disease Brother Cirrhosis Alcoholism Social History Household Members: Spouse and Children Are you a primary health care legal assistant to a significant other at home: No Do you presently have visiting nurse or other home services: No Alcohol intake: never Patient Tobacco Use Status: Former Tobacco user Tobacco use type: Cigarette Second Hand Smoke Exposure: No Current occupational status: disabled Current occupation: rt handed Review of Systems Const All systems reviewed & are unremarkable except as noted in HPI and below Physical Exam Vital Signs: Last Vital Signs Pulse 86 09/19/24 09:21 BP 158/77 H 09/19/24 09:21 Pulse Ox 98 09/19/24 09:21 Oxygen Delivery Method Room Air 09/19/24 09:21 BMI result Body Mass Index 26.0 Const General: cooperative, healthy appearing, comfortable, well developed, alert and awake Nutritional Appearance: average body habitus Orientation/consciousness: patient oriented x3 Limitations: language barrier Eyes Pupils: Equal, round and reactive pupils present EOM: EOMs intact bilaterally Neck Other: On inspection straightened cervical lordosis. Flexion forward and flexion backwards both aggravate the pain however flexion forward aggravate pain less t arevalo flexing backwards. Axial compression aggravates pain. Spurling test is negative bilaterally. Lhermitte test is negative. Neck: No full ROM Chest Chest palpation & inspection: normal inspection of the chest Resp Effort & Inspection: normal respiratory effort, able to speak in complete sentences, normal respiratory pattern, no audible wheezes and no cough Cardio Jugular venous distension: no JVD Back/Spine/Pelvis Other: tenderness on palpation in paraspinal spinal region in lumbar spine. Loading test is positive. Range of motion in lumbar spine is preserved. Quincy test happened to be positive on the right. Stinchfield test is positive on the right. Pelvic destruction test might be positive on the right. Tenderness on palpation in paraspinal spinal regions of upper lumbar spine. Loading test is positive on the right. SLR is positive on the right. Neuro General: patient oriented x3 Cranial nerves: Yes Equal, round and reactive pupils present Psych Speech and movement: Normal speech and movement present Affect: normal affect Attitude: cooperative Assessment & Plan Assessment & Plan (1) Sacroiliac joint pain: Code(s): M53.3 - Sacrococcygeal disorders, not elsewhere classified Category: Medical (2) Lumbar radiculopathy: Code(s): M54.16 - Radiculopathy, lumbar region Category: Medical (3) Disc degeneration, lumbar: Code(s): M51.36 - Other intervertebral disc degeneration, lumbar region Category: Medical (4) Chronic pain syndrome: Code(s): G89.4 - Chronic pain syndrome Category: Medical (5) Discogenic cervical pain: Code(s): M50.30 - Other cervical disc degeneration, unspecified cervical region Category: Medical (6) Spondylosis of cervical region without myelopathy or radiculopathy: Code(s): M47.812 - Spondylosis without myelopathy or radiculopathy, cervical region Category: Medical Plan The neck pain of this patient is predominantly axial and not radiating into the upper extremities. It is most likely facetogenic pain. I will schedule this patient to confirm my diagnosis for C2, C3, C4 bilateral medial branch block. With positive medial branch block I will schedule him for sprint PNS of the cervical C3 area. After we will complete treatment for the cervicalgia, we will returned to lower back pain. I will schedule him for the MRI of the lumbar spine, if there are any significant changes with nerve root compressions I will refer him to Neurosurgery. If there is no surgical indications I will continue trial of a pain pump. My next step will be bupivacaine trial. Orders: Orders MR lumbar spine wo con Today M54.16 - Radiculopathy, lumbar region Patient Instructions: I here by testify that I spent 42 minutes in conversation with this patient as well as evaluating his prior records, evaluating MRI images, planning his care and organizing this note. honeycomb decapper from [facility] [phone] helped us to maintain this conversation in Chilean. Coding Level of Care Code Est Pt Level 5 (99616) Diagnoses Sacroiliac joint pain M53.3 Lumbar radiculopathy M54.16 Disc degeneration, lumbar M51.36 Chronic pain syndrome G89.4 Discogenic cervical pain M50.30 Spondylosis of cervical region without myelopathy or radiculopathy M47.812
== END 2024-09-19 09:24 | disposition home or self-care (01) ==
PROVIDERS: PCP Family Medicine; Visit Provider Anesthesiology
DX: M53.3 Sacrococcygeal disorders, not elsewhere classified (principal); M54.16 Radiculopathy, lumbar region; M51.369 Other intervertebral disc degeneration, lumbar region without mention of lumbar back pain or lower extremity pain; G89.4 Chronic pain syndrome; M50.30 Other cervical disc degeneration, unspecified cervical region; M47.812 Spondylosis without myelopathy or radiculopathy, cervical region
CPT/HCPCS: 99215

== ENCOUNTER → 2024-09-19 08:43 | Outpatient (BNVA) | payer MEDICAID, SELFPAY | PROVIDERS: PCP Family Medicine; Visit Provider Anesthesiology | DX: M53.3 Sacrococcygeal disorders, not elsewhere classified (principal); M54.16 Radiculopathy, lumbar region; M51.360 Other intervertebral disc degeneration, lumbar region with discogenic back pain only; M50.30 Other cervical disc degeneration, unspecified cervical region; M47.812 Spondylosis without myelopathy or radiculopathy, cervical region; G89.4 Chronic pain syndrome | CPT/HCPCS: 99212 ==

== ENCOUNTER → 2024-10-21 09:42 | Outpatient (BNV) | payer MEDICAID, SELFPAY | PROVIDERS: PCP Family Medicine; Visit Provider Radiology Diagnostic Radiology | DX: M54.16 Radiculopathy, lumbar region (principal) | CPT/HCPCS: 72148 ==

== ENCOUNTER 2024-10-21 09:43 | Outpatient (REF) | payer MEDICAID, SELFPAY ==
--- NOTE | ~2024-10-21 | MR_ITS ---
EXAMINATION: MR LUMBAR SPINE WITHOUT CONTRAST CLINICAL INFORMATION: Radiculopathy, lumbar region. COMPARISON: MRI dated April 12, 2023 reported anterolisthesis, L5-S1. TECHNIQUE: MRI of the lumbar spine was obtained using routine sequences without contrast. FINDINGS: Submitted for interpretation on March 22, 2025. Last rib-bearing vertebra labeled T12. No bone marrow STIR signal abnormality. Multilevel disc desiccation more conspicuous at L4-5 and L5-S1. Focal hyperintense T2 signal in the posterior intervertebral disc L5-S1 likely annular fissure. Subtle grade 1 retrolisthesis L3-4. Subtle grade 1 anterolisthesis L4-5. Conus medullaris ends at inferior endplate of L1 with normal signal. T12-L1: No disc herniation. No neuroforamina stenosis. L1-2: No disc herniation. No neuroforamina stenosis. L2-3: Broad-based disc bulging. Facet joint and ligamentum flavum hypertrophy. No compression upon neural elements. L3-4: Broad-based disc bulging. Facet joint and ligamentum flavum hypertrophy. No compression upon neural elements. L4-5: Asymmetric right-sided broad-based disc bulging. Facet joint and ligamentum flavum hypertrophy. Prominent epidural fat with a circumferential morphology pattern. Bilateral neuroforamina narrowing encroaching the neural elements of the thecal sac and the exiting nerve roots. L5-S1: Broad-based disc bulging. Prominent epidural fat in a circumferential fashion reducing the AP diameter of the thecal sac and encroaching the neural elements and the exiting nerve roots. Bone marrow inhomogeneity of the bony pelvis. Degenerative changes in the sacroiliac joints. Hyperintense T2 lesions in the parapelvic region of the kidneys. MR/MR lumbar spine wo con IMPRESSION: Multilevel lumbar spondylosis L4-5 and L5-S1 with associated epidural lipomatosis involving mostly the L5-S1 level encroaching the neural elements. Electronically signed by: Jakob Sibley MD 10/22/2024 03:42 PM EST
== END 2024-10-21 09:44 | disposition home or self-care (01) ==
LOC: HO.MRI 09:43
PROVIDERS: PCP Family Medicine; Visit Provider Anesthesiology
DX: M54.16 Radiculopathy, lumbar region (principal)
CPT/HCPCS: 72148

== ENCOUNTER 2024-11-01 14:48 | Outpatient (AMB) | payer MEDICAID, SELFPAY ==
--- NOTE | 2024-11-01 15:13 | HO.SPINEOV ---
Intake Visit Reasons: Neck pain Intake Note: Mr. Lynnette Elkins is here today c/o neck pain. Greens Or Grounds Superintendent Required: Yes Greens Or Grounds Superintendent Name: tablet Allergies No Known Allergies [No Known Allergies*] Allergy (Verified 09/19/24 09:22) Assessment & Plan Assessment & Plan (1) Spondylosis of cervical region without myelopathy or radiculopathy: Code(s): M47.812 - Spondylosis without myelopathy or radiculopathy, cervical region Category: Medical (2) Discogenic cervical pain: Code(s): M50.30 - Other cervical disc degeneration, unspecified cervical region Category: Medical Plan Visit done with acidizer water well [id number]. Mr Church is known to us from our previous practice at [facility]. About 4-[address] Mathews did a C5-6, C6-7 anterior cervical fusion. He has continued to have neck pain since that time. He has also been complaining of back pain radiating down his right leg into his lateral thigh, lateral calf. It is keeping him up at night, he is having a lot of difficulty standing and walking as well. He had an MRI of his lumbar and his cervical done here at [place]. The cervical MRI shows that he has degenerative disc disease or what is called adjacent segment disease at C4-5 with disc collapse. This could explain his posterior cervical neck pain. With regard to the lumbar, there is only mild degenerative changes I do not see any nerve compression. I am not sure how to explain the radiculopathy down his leg. He is going to see Dr. Boykin for some injections. He had those prior to his 1st neck surgery with us. I think he should complete his course of conservative treatment with Dr. Boykin and see us after the injections are completed. Total amount of time spent in this visit was 20 minutes in discussion of symptoms, cervical and lumbar imaging results and subsequent plan of care Jose Mathews MD,PhD [facility] Coding Level of Care Code Est Pt Level 3 (69520) Diagnoses Spondylosis of cervical region without myelopathy or radiculopathy M47.812 Discogenic cervical pain M50.30
--- OUTSIDE RECORDS SUMMARY | 2024-11-01 16:11 | XMS_ITS | Encounter Summary ---
Author Organization [employer] Address [address] [place] [address] Care Team Providers Care Catshovel Driver Name Role Phone Koki Vu MD Primary Care Provider [phone] Encounter Details Date Type Department Care Team (Late st Contact Info) Description 10/21/2024 Orders Only [facility] External Provider, [facility] Social History Tobacco Use Types Packs/Day Years Used Date Smoking Tobacco: Never Passive Smoke Exposure: Never Smokeless Tobacco: Never Alcohol Use Standard Drinks/Week Comments Never 0 (1 standard drink = 0.6 oz pur e alcohol) Depression Answer Date Recorded Patient Health Questionnaire-9 Score 17 07/04/2023 Housing Stability Answer Date Recorded What is your housing situation today? I have mendy chan 07/27/[address] you li ve. Do you have problems with any of the following? None of the above 07/27/2023 Food Insecurity Answer Date Recorded Within the past 12 months, y ou worried that your food would run out before you got money to buy more: Often true 02/21/2024 Within the past 12 months,th e food you bought just didn't last and you didn't have enough money to get more: Often true Transportation Answer Date Recorded In the past 12 months, has l ack of transportation kept you from medical appts, meetings, work or from getting things needed for daily living? No 07/27/2023 Utilities Answer Date Recorded In the past 12 months, has t he electric, gas, oil or water company threatened to shut off services in your home? No 07/27/2023 Depression Answer Date Recorded Patient Health Questionnaire-2 Score 6 07/04/2023 Sex and Gender Information Value Date Recorded Sex Assigned at Male 08/08/2022 10:33 AM EDT Legal Sex Male 10:33 AM EDT Gender Identity Male 08/08/2022 10:33 AM EDT Sexual Orientation Choose not to disclose 2021 10:33 AM EDT documented as of this encounter Plan of Treatment Not on file documented as of this encounter Procedures Procedure Name Priority Date/Time Associated Diagnosis Comments MR LUMBAR SPINE WO CONTRAST Routine 10/21/2024 9:55 AM EST documented in this encounter Results * MR Lumbar Spine w/o Contrast (10/21/2024 9:55 AM EST) Anatomical Region Laterality Modality Spine, L-spine Magnetic Resonan ce 10/21/2024 9:55 AM EST Narrative 10/22/2024 3:45 PM EST ? [facility] ?[address] ?[place] [address] ? Magnetic Resonance Report ? Signed ? Patient: Lynnette ElkinsKvng E ?MR#: [id number] ?? [id number] ? : 1965 ?Acct:[id number] ? Age/Sex: 59 / M ?ADM Date: 10/21/24 ? Loc: HO.MRI ? Attending Dr: Winston Boykin MD ? Ordering Physician: Winston Boykin MD ?? Date of Service: 10/21/24 ?? Procedure(s): MR lumbar spine wo con ?? Accession Number(s): [id number] ? cc: Winston Boykin MD; Koki Vu MD ? EXAMINATION: ?? MR LUMBAR SPINE WITHOUT CONTRAST ? CLINICAL INFORMATION: ?? Radiculopathy, lumbar region. ? COMPARISON: ?? MRI dated April 12, 2023 reported anterolisthesis, L5-S1. ? TECHNIQUE: ?? MRI of the lumbar spine was obtained using routine sequences without ?? contrast. ? FINDINGS: ?? Submitted for interpretation on March 22, 2025. ? Last rib-bearing vertebra labeled T12. ?? No bone marrow STIR signal abnormality. ?? Multilevel disc desiccation more conspicuous at L4-5 and L5-S1. ?? Focal hyperintense T2 signal in the posterior intervertebral disc L5-S1 ?? likely annular fissure. ?? Subtle grade 1 retrolisthesis L3-4. ?? Subtle grade 1 anterolisthesis L4-5. ?? Conus medullaris ends at inferior endplate of L1 with normal signal. ? T12-L1: ?? No disc herniation. No neuroforamina stenosis. ? L1-2: ?? No disc herniation. No neuroforamina stenosis. ? L2-3: ?? Broad-based disc bulging. Facet joint and ligamentum flavum ?? hypertrophy. No compression upon neural elements. ? L3-4: ?? Broad-based disc bulging. Facet joint and ligamentum flavum ?? hypertrophy. No compression upon neural elements. ? L4-5: ?? Asymmetric right-sided broad-based disc bulging. Facet joint and ?? ligamentum flavum hypertrophy. Prominent epidural fat with a ?? circumferential morphology pattern. ?? Bilateral neuroforamina narrowing encroaching the neural elements of ?? the thecal sac and the exiting nerve roots. ? L5-S1: ?? Broad-based disc bulging. Prominent epidural fat in a circumferential ?? fashion reducing the AP diameter of the thecal sac and encroaching the ?? neural elements and the exiting nerve roots. ?? Bone marrow inhomogeneity of the bony pelvis. Degenerative changes in ?? the sacroiliac joints. Hyperintense T2 lesions in the parapelvic region ?? of the kidneys. ? MR/MR lumbar spine wo con ?? IMPRESSION: ?? Multilevel lumbar spondylosis L4-5 and L5-S1 with associated epidural ?? lipomatosis involving mostly the L5-S1 level encroaching the neural ?? elements. ? Electronically signed by: ??Jakob Sibley MD ??10/22/2024 03:42 PM ?? EST RP ? Dictated By: ?Jakob Lee MD ? Signed By: ?<Electronically signed by Jakob Mcfadden MD in OV> ? 10/22/24 1542 ? DD/ 0955 ? TD/TT: 10/21/24 1020 ? Charge Account Clerk: ? Procedure Note Skylar, David - 10/22/[address] [address] Magnetic Resonance Report Signed Patient: Kvng Ramon EMR#: [id number] : 1965Acct:[id number] Age/Sex: 59 / MADM Date: 10/21/24 Loc: HO.MRI Attending Dr: Winston Boykin MD Ordering Physician: Winston Boykin MD Date of Service: 10/21/24 Procedure(s): MR lumbar spine wo [facility] Accession Number(s): [id number] cc: Winston Boykin MD; Koki Vu MD EXAMINATION: MR LUMBAR SPINE WITHOUT CONTRAST CLINICAL INFORMATION: Radiculopathy, lumbar region. COMPARISON: MRI dated April 12, 2023 reported anterolisthesis, L5-S1. TECHNIQUE: MRI of the lumbar spine was obtained using routine sequences without contrast. FINDINGS: Submitted for interpretation on March 22, 2025. Last rib-bearing vertebra labeled T12. No bone marrow STIR signal abnormality. Multilevel disc desiccation more conspicuous at L4-5 and L5-S1. Focal hyperintense T2 signal in the posterior intervertebral disc L5-S1 likely annular fissure. Subtle grade 1 retrolisthesis L3-4. Subtle grade 1 anterolisthesis L4-5. Conus medullaris ends at inferior endplate of L1 with normal signal. T12-L1: No disc herniation. No neuroforamina stenosis. L1-2: No disc herniation. No neuroforamina stenosis. L2-3: Broad-based disc bulging. Facet joint and ligamentum flavum hypertrophy. No compression upon neural elements. L3-4: Broad-based disc bulging. Facet joint and ligamentum flavum hypertrophy. No compression upon neural elements. L4-5: Asymmetric right-sided broad-based disc bulging. Facet joint and ligamentum flavum hypertrophy. Prominent epidural fat with a circumferential morphology pattern. Bilateral neuroforamina narrowing encroaching the neural elements of the thecal sac and the exiting nerve roots. L5-S1: Broad-based disc bulging. Prominent epidural fat in a circumferential fashion reducing the AP diameter of the thecal sac and encroaching the neural elements and the exiting nerve roots. Bone marrow inhomogeneity of the bony pelvis. Degenerative changes in the sacroiliac joints. Hyperintense T2 lesions in the parapelvic region of the kidneys. MR/MR lumbar spine wo con IMPRESSION: Multilevel lumbar spondylosis L4-5 and L5-S1 with associated epidural lipomatosis involving mostly the L5-S1 level encroaching the neural elements. Electronically signed by: Jakob Sibley MD 10/22/2024 03:42 PM EST Dictated By: Jakob Lee MD Signed By: <Electronically signed by Jakob Mcfadden MDin OV> 10/22/24 1542 DD/ 0955 TD/TT: 10/21/24 1020 Charge Account Clerk: [facility] External Provider IMG MRI PROCEDURES Final Result documented in this encounter Visit Diagnoses Not on filedocumented in this encounter Additional Health Concerns Assessment Noted Time PHQ-9 Depression Total Score: 17 023 11:11 AM EDT documented as of this encounter Care Teams Catshovel Driver Relationship Specialty Start Date End Date Koki Vu MD [address] [place] [address] PCP - General Family Medicine 10/23/20 Addie Vegetable SorterDirector Recreation Center 06/17/24 documented as of this encounter
--- OUTSIDE RECORDS SUMMARY | 2024-11-01 16:11 | XMS_ITS | Encounter Summary ---
Author Organization [employer] Address [address] [place] [address] Care Team Providers Care Supervisor Advice Name Role Phone Koki Vu MD Primary Care Provider [phone] Reason for Visit * Reason Onset Date Comments Durable Medical Equipment 02/07/2024 Encounter Details Date Type Department Care Team ([facility] st Contact Info) Description 02/07/2024 Telephone [facility] [address] [place] [address] Koki Vu MD [address] [place] [address] Durable Medical Equipment Social History Tobacco Use Types Packs/Day Years [...] before you got money to buy more: Never True 07/27/2023 Within the past 12 months,th e food you bought just didn't last and you didn't have enough money to get more: Never True Transportation Answer Date Recorded In the past [...] AM EDT documented as of this encounter Miscellaneous Notes * Telephone Encounter - Xenia Quiles - 02/07/2024 2:07 PM EDT Tc from unruly with ICP requesting a power lift chair to be sent to [facility] documented in this encounter Plan of Treatment Not on file documented as of this encounter Visit Diagnoses Not on filedocumented in this encounter Additional Health Concerns Assessment Noted Time PHQ-9 Depression Total Score: 17 023 11:11 AM EDT documented as of this encounter Care Teams Supervisor Advice Relationship Specialty Start Date End Date Koki Vu MD [address] [place] [address] PCP - General Family Medicine 10/23/20 Addie Tool Grinder Operator SurfacePile Trimmer 06/17/24 documented as of this encounter
--- OUTSIDE RECORDS SUMMARY | 2024-11-01 16:11 | XMS_ITS | Clinical Summary ---
Author Organization [facility] Address [address] [facility] [address] [place] [address] Care Team Providers Care Route Jumper Name Role Phone Koki Vu MD Primary Care Provider [phone] Allergies No known active allergies Medications lactulose (Chronulac) 10 GM/15ML solution Take 30 mL by mouth in the morning. Active acetaminophen (Tylenol 8 Hour) 650 MG ER tablet Take 1 tablet by mouth every 8 (eight) hours. 02/17/20 21 Active albuterol (ProAir HFA) 108 (90 Base) MCG/ACT inhaler Inhale 2 puffs every 4 (four) hours. 04/15/20 22 Active busPIRone (Buspar) 15 MG tablet Take 15 mg by mouth 3 times daily. 10/19/19 23 Active cetirizine (ZyrTEC) 10 MG tablet TAKE 1 TABLET BY MOUTH EVERY DAY NEEDED FOR RASH 08/01/20 22 Active EPINEPHrine (Epipen) 0.3 MG/0.3ML injection syringe Inject 0.3 mL into the shoulder, thigh, or buttocks. 08/01/20 22 Active escitalopram (Lexapro) 20 MG tablet Take 20 mg by mouth at bedtime. 10/19/19 23 Active Enbrel SureClick 50 MG/ML injection 10/21/19 23 Active famotidine (Pepcid) 40 MG tablet Take 40 mg by mouth at bedtime. 08/01/20 22 Active fluticasone (Flonase) 50 MCG/ACT nasal spray INSTILL 1-2 SPRAYS IN EACH NOSTRIL ONCE DAILY NEEDED 10/19/19 23 Active Advair Diskus 250-50 MCG/ACT aerosol powder INHALE 1 PUFF BY MOUTH TWICE DAILY. RINSE MOUTH AFTER USING. 10/19/19 Active loratadine (Claritin) 10 MG tablet Take 10 mg by mouth in the morning. 10/19/19 Active tiZANidine (Zanaflex) 4 MG tablet TAKE 1 TABLET BY MOUTH EVERY 6 TO 8 HOURS NEEDED. DO NOT EXCEED 3 DOSES IN 24 HOURS. 08/08/20 22 Active omeprazole (PriLOSEC) [address] capsule Take 40 mg by mouth in the morning. 02/11/20 23 Active naloxone (Narcan) 4 mg/0.1 mL nasal spray FOR SUSPECTED OPIOID OVERDOSE. SPRAY 0.1mL IN ONE NOSTRIL. REPEAT IN ALTERNATE NOSTRIL 2-3 MINUTES IF NEEDED. SEEK MEDICAL ATTENTION IMMEDIATELY EVEN IF PATIENT RESPONDS. 02/29/20 23 Active bumetanide (Bumex) 1 MG tablet Take 1 mg by mouth in the morning. 04/03/20 23 Active HM ClearLax 17 GM/SCOOP powder Mix 17g (1 capful) in 8 ounces of water and take by mouth every day 08/25/20 23 Active amLODIPine (Norvasc) 5 MG tablet Take 5 mg by mouth in the morning. 08/22/20 23 Active cholecalciferol (Vitamin D-3) 50 MCG (2000 UT) tabletIndications: Vitamin D deficiency, unspecified TAKE 1 TABLET BY MOUTH EVERY DAY 30 tablet 11 12/14/19 24 Active sucralfate (Carafate) 1 GM/10ML suspension Take 10 mL (1 g) by mouth every 6 (six) hours. 414 mL 3 01/04/20 24 Active lidocaine (Lidoderm) 5 % patch APPLY 3 PATCHES TO SKIN DAILY FOR UP TO 12 HOURS, THEN REMOVE FOR 12 HOURS. 90 patch 5 02/01/20 24 Active levothyroxine (Synthroid, Levoxyl) 88 MCG tablet TAKE 1 TABLET BY MOUTH EVERY DAY IN THE MORNING 90 tablet 5 02/01/20 24 Active amitriptyline (Elavil) 50 MG tabletIndications: Chronic low back pain, unspecified back pain laterality, unspecified whether sciatica present TAKE 1 TABLET BY MOUTH AT BEDTIME 90 tablet 1 02/01/20 24 Active magnesium oxide (Mag-Ox) 400 (240 Mg) MG tablet Take 400 mg by mouth Once per day. 01/08/20 24 Active riboflavin (Vitamin B-2) 400 MG tablet Take 1 tablet by mouth Once per day. 01/08/20 24 Active Diclofenac Sodium 1 % gel Apply 2 g topically if needed in the morning, at noon, in the evening, and at bedtime (pain). Apply to affected areas of hands. 100 g 1 06/24/20 24 Active ibuprofen 600 MG tablet Take 600 mg by mouth. 02/23/20 24 Active SUMAtriptan (Imitrex) 100 MG tablet TAKE 1/2 TO 1 TABLET BY MOUTH AT ONSET OF HEADACHE, MAY REPEAT DOSE IN 2 HOURS NEEDED FOR MIGRAINE. DO NOT EXCEED 2 TABLETS PER DAY OR 4 TABLETS PER WEEK. MAY TAKE WITH tylenol. 07/10/20 24 Active atorvastatin (Lipitor) 80 MG tabletIndications: Hyperlipidemia, unspecified hyperlipidemia type TAKE 1 TABLET BY MOUTH EVERY DAY AT BEDTIME 90 tablet 1 07/30/20 24 Active pregabalin (Lyrica) 225 MG capsule TAKE 1 CAPSULE BY MOUTH TWICE DAILY 60 capsule 1 09/19/20 24 Active Active Problems Problem Noted Date Diagnosed Date Pityriasis rosea 09/11/2023 Assessment & Plan (09/11/2023 10:47 AM EST): Patient that presented visit with complaints of a rash will be sent for labs: Syphilis Screen. Will follow up with results. Food insecurity 07/04/2023 Assessment & Plan (07/04/2023 4:17 PM EDT): Pt reports that needs assistance with food -referred today to CM Right arm cellulitis 06/29/2023 Assessment & Plan (07/04/2023 4:15 PM EDT): Complete resolution of right arm cellulitis tx initially w bactrim that completed for 5 days as well added azithromycin 06/29/2023 for systemic symptoms and possible cat scratch dx-already completed ATBs ? Assessment & Plan (06/29/2023 6:30 PM EDT): Comes to f up right arm cellulitis -pt thinks possible associated with a cat scratch on 06/26/2023 -started on bactrim BID on 06/27/2023 Per pt yesterday noted some worsening in erythema as well was feeling fatigue,TORREZ ,myalgias and chills,denies fever nor enlarged lymph nodes. Denies visual changes .Overall feeling better this morning. From exam noted mild extension of erythema and given reported systemic symptoms reported yesterday and with pt taking enbrel will empirically will add tx for cat scratch disease with azithromycin -continue bactrim BID to complete 5 days as px before -add today azithromycin 500 mg today and 250 mg daily for 4 days -I marked today area of extension and I will f/up pt in clinic in 5 days -alarm signs and symptoms discussed w pt Hypertension 06/08/2023 Assessment & Plan (07/31/2023 9:31 AM EDT): Controlled: will keep monitoring. Advised to keep taking blood pressure at home. Assessment & Plan (06/13/2023 1:45 PM EDT): Elevated in the setting of pain. Reports compliance with medication. Currently no on medication. Recommended monitoring BP at home, target < 140/90 mmHg more then 75% of time. If not will need to start antihypertensive. 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 Continue on current medications. Patient requested 10 in 1 pillow to help with positioning and his left hip and psoriatric arthritis. Discussed vaccinations due, PCV-20 administered today in office and ordered RSV to be administered at a later date. Assessment & Plan (09/11/2023 1:57 PM EST): Mild to moderate improvement of his diffuse joint aches. On max therapy. Upon visit, patient requested a referral to another pain specialist, therefore, patient will be referred to Pain Medicine. Assessment & Plan (07/31/2023 9:32 AM EDT): Patient still complaints of constant pain, will increased Lyrica: 150mg to 225mg. Follow up in 6 weeks. Assessment & Plan (05/15/2023 11:50 AM EDT): Patient with history of fibromyalgia. Did not tolerate fentynal pump. Will start on tramadol for relief of symptoms and follow up in 2 weeks. Other sleep apnea 04/06/2023 Assessment & Plan (05/15/2023 11:49 AM EDT): Will send for overnight oximetry for further evaluation. Left hip pain 12/14/2022 Assessment & Plan (12/14/2022 4:41 PM EST): Sent for L hip Xray and send to ortho for evaluation. 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 Assessment & Plan (10/27/2022 4:59 PM EST): Patient has had more then 1 yr of dysphagia symptoms, has already had in he past US of his thyroid w/o any abnormalities and stable TSH. He has seen ENT/GI, found to have esophageal dysmotility,he is concern is related to his thyroid and wants to be seen by Endo, referral place per his request. Prediabetes 07/12/2019 Psoriatic arthritis 06/14/2019 Steatosis of liver 01/29/2019 Cervical radiculitis 09/06/2018 Memory impairment 05/30/2018 Gastro-esophageal reflux disease with esophagiti s 05/30/2018 Avascular necrosis of left femoral head 04/15/20 18 Overview (05/15/2023): Patient reports he side effect with fentanyl pump and that he does not have it. Assessment & Plan (05/15/2023 11:55 AM EDT): Admits he did not tolerate fentanyl pump and had it removed. Currently not on any medication for pain management. Esophageal dysmotility 01/16/2018 Severe recurrent major depression with psychotic features 12/11/2017 Assessment & Plan (07/04/2023 4:16 PM EDT): PHQ9: 17,denies SI Christian f w psychiatrist and therapist at [facility] ---advised to continue care and may need eval if meds can be adjusted Chronic low back pain 12/11/2017 Assessment & Plan (06/13/2023 1:43 PM EDT): Not responsive to opiate medications. At this point will send a trial of Lyrica. Will need to proceed with PA for this. Encounters Date Type Department Care Team Description 10/21/2024 Orders Only [facility] External Provider, [facility] 09/27/2024 Telephone [facility] [address] [place] [address] Koki Vu MD 09/19/2024 Refill [facility] [address] [place] [address] Koki Vu MD 08/26/2024 Telephone [facility] Information Management [address] [place] [address] Koki Vu MD 08/23/2024 Telephone [facility] [address] [place] [address] Koki Vu MD Results 08/23/2024 Telephone [facility] [address] [place] [address] Koki Vu MD Referral 08/13/2024 Orders Only GENERIC EXTERNAL DATA DEPARTMENT Provider, Generic External Data 08/13/2024 Telephone [facility] Information [facility] [address] [place] [address] Koki Vu MD 08/13/2024 Telephone [facility] Information Management [address] [place] [address] Koki Vu MD 08/05/2024 Telephone [facility] [address] [place] [address] Koki Vu MD 08/04/2024 Orders Only [facility] External Provider, [facility] 08/03/2024 Telephone [facility] [address] [place] [address] Tamar Valencia RN Results (Forwarding right and left hand xray results to PCP for review and advise) 08/02/2024 Telephone [facility] [address], [place] [phone] Koki Vu MD 08/02/2024 Orders Only [facility] [address], [place] [phone] Tirso Mayfield MD Erosion of bone (Primary Dx) 08/02/2024 Telephone [facility] [address], [place] [phone] Kirti Rogers MD Hand Xrays result from Last 3 Months Immunizations Name Administration Dates Next Due Hep A, Adult 08/14/2019 Hep B, adult 04/16/2024,02/16/2024,08/14/2019 Influenza injectable quadriv alent IIV4 with preservative 09/06/2018,12/11/2017 Influenza injectable quadriv alent preservative free 07/31/2023,07/02/2021,08/26/2020,2018,09/06/2018 Influenza, seasonal, injecta ble, preservative free 06/24/2024 Moderna Covid-19 Vaccine 12+ 04/27/2022, 09/23/2021,01/18/2021,2020 Pneumococcal Conjugate PCV 13 06/07/2019 Pneumococcal Conjugate PCV 20 02/01/2024 RSV Bivalent 02/16/2024 Tdap 07/10/2019 Zoster, Recombinant 06/27/2022,04/25/2022 Social History Tobacco Use Types Packs/Day Years Used Date Smoking Tobacco: Never Passive Smoke Exposure: Never Smokeless Tobacco: Never Tobacco Cessation:Counseling Given: Not Answered Alcohol Use Standard Drinks/Week Comments Never 0 [...] not to disclose 2021 10:33 AM EDT Last Filed Vital Signs Vital Sign Reading Time Taken Comments Blood Pressure 119/79 07/26/2024 9:01 AM EDT Pulse 66 07/26/2024 9:01 AM EDT Temperature 36.5 ??C (97.7 ??F) 07/26/2024 9:01 AM ED T Respiratory Rate 20 07/26/2024 9:01 AM EDT Oxygen Saturation 99% 07/26/2024 9:01 AM EDT Inhaled Oxygen Concentration - - Weight 77.2 kg (170 lb 4 oz) 07/26/2024 9:01 AM EDT Height 157.5 cm (5' 2 ) 07/26/2024 9:01 AM EDT Body Mass Index 31.14 07/26/2024 9:01 AM EDT Plan of Treatment Health Maintenance Due Date Last Done Comments CT Colonography 1965 FIT 1965 FOBT 1965 HIV Screening 1965 Sigmoidoscopy 1965 Alcohol/Substance Use Screening 1975 Hepatitis A Vaccines (2 of 2 - Risk 2-dose series) 02/12/2020 08/14/2019 Depression Monitoring (PHQ-9) 01/02/2024 07/04/2023, 07/04/2023 Diabetes: Hemoglobin A1C 05/15/2024 05/15/2023, 07/0 05/2022 COVID-19 Vaccine ( season) 2024 04/27/2022, 09/23/2021, 01/18/2021, Additional history exists Depression Screening 07/04/2024 07/04/2023, 07/04/20 SDOH Screening 02/20/2025 02/21/2024 Tobacco Screening 07/26/2025 07/26/2024 FIT DNA/Cologuard 08/10/2026 08/10/2023 Lipid Panel 04/15/2027 04/15/2022, 04/20/2021 Colonoscopy 04/17/2028 04/17/2018 Colorectal Cancer Screening 04/17/2028 DTaP/Tdap/Td Vaccines (2 - Td or Tdap) 07/10/2029 07/10/2019 Zoster Vaccines Completed 06/27/2022, 04/25/2022 Pneumococcal Vaccine: Pediatrics (0 to 5 Years) and At-Risk Patients (6 to 64 Years) Completed 02/01/2024, 06/07/2019 RSV Patients and Patients Aged 60 years or older Completed 02/16/2024 Hepatitis B Vaccines Completed 04/16/2024, 02/16/2024, 08/14/2019 Influenza Vaccine Completed 06/24/2024, , 07/02/2021, Additional history exists Hepatitis C Screening Completed 08/13/2024 HIB Vaccines Aged Out No longer eligi ble based on patient's age to complete this topic HPV Vaccines Aged Out No longer eligi ble based on patient's age to complete this topic IPV Vaccines Aged Out No longer eligi ble based on patient's age to complete this topic Meningococcal Vaccine Aged Out No oj mirlande eligible based on patient's age to complete this topic RSV under 20 months Aged Out No longe r eligible based on patient's age to complete this topic Rotavirus Vaccines Aged Out No longer eligible based on patient's age to complete this topic Procedures Procedure Name Priority Date/Time Associated Diagnosis Comments MR LUMBAR SPINE WO CONTRAST Routine 10/21/2024 9:55 AM EST HLA-B27 ANTIGEN Routine 08/13/2024 11:49 AM EST HEPATITIS B VIRUS DNA, QN, REAL TIME PCR Routine 08/13/2024 11:49 AM EST HEPATITIS PANEL, GENERAL Routine 08/13/2024 11:49 AM EST SED RATE BY MODIFIED WESTERGREN Routine 08/13/2024 11:49 AM EST C-REACTIVE PROTEIN Routine 08/13/2024 11 :49 AM EST COMPREHENSIVE METABOLIC PANEL Routine 08/13/2024 11:49 AM EST CBC WITH AUTO DIFFERENTIAL Routine 08/13/2024 11:49 AM EST RHEUMATOID FACTOR Routine 08/08/2024 10: 40 AM EDT Erosion of bone CYCLIC CITRULLINATED PEPTIDE (CCP) AB (IGG) Routine 08/08/2024 10:40 AM EDT Erosion of bone MR CERVICAL SPINE WO CONTRAST Routine 08/04/2024 8:43 AM EDT LAB COLOGUARD?? COLON CANCER SCREEN Routine 08/10/2023 3:59 PM EDT Colon cancer screening HEMOGLOBIN A1C Routine 05/15/2023 12:13 PM EDT Encounter for health-related screening LIPID PANEL, STANDARD Routine 04/15/2022 9:27 AM EDT HM COLONOSCOPY Routine 04/17/2018 6:07 AM EDT from Last 3 Months or Most Recently Relevant to Health Maintenance Results * MR Lumbar Spine w/o Contrast (10/21/2024 9:55 AM EST) Anatomical Region Laterality Modality Spine, L-spine Magnetic Resonan ce 10/21/2024 9:55 AM EST Narrative 10/22/2024 3:45 PM EST ? [facility] ?[address] ?[place] [address] ? Magnetic Resonance Report ? Signed ? Patient: Lynnette Elkins,Kvng E ?MR#: [id number] ?? [id number] ? : 1965 ?Acct:[id number] ? Age/Sex: 59 / M ?ADM Date: 10/21/24 ? Loc: HO.MRI ? Attending Dr: Winston Boykin MD ? Ordering Physician: Winston Boykin MD ?? Date of Service: 10/21/24 ?? Procedure(s): MR lumbar spine wo con ?? Accession Number(s): [id number] ? cc: Winston Boykin MD; Koki Vu [...] neural ?? elements. ? Electronically signed by: ??aJkob Sibley MD ??10/22/2024 03:42 PM ?? EST ? Dictated By: ?Jakob Lee MD ? Signed By: ?<Electronically signed by Jakob Mcfadden MD in OV> ? 10/22/24 1542 ? DD/ 0955 ? TD/TT: 10/21/24 1020 ? Admin Asst: ? Procedure Note Skylar, David - 10/22/2024 [place] [address] Magnetic Resonance Report Signed Patient: Kvng Ramon EMR#: [id number] : 1965Acct:[id number] Age/Sex: 59 / MADM Date: 10/21/24 Loc: HO.MRI Attending Dr: Winston Boykin MD Ordering Physician: Winston Boykin MD Date of Service: 10/21/24 Procedure(s): MR lumbar spine wo con Accession Number(s): [id number] cc: Winston Boykin MD; Koki Vu MD [...] 10/22/24 1542 DD/ 0955 TD/TT: 10/21/24 1020 Admin Asst: [facility] External Provider IMG MRI PROCEDURES Final Result * Hepatitis Panel, General (08/13/2024 11:49 AM EST) Pathologist [facility] Hepatitis A IgM Nonreactive Nonreactive [facility] Comment:IgM antibodies to TORREZ V not detected; does not exclude earlyacute or recovered HAV infection. ~Hepatitis B Surface Antibody NONREACTIVE Nonreactive [facility] Comment:Nonreactive: < 8.00 mIU/mL Hepatitis B Core Antibody Nonreactive Nonreactive [facility] Hepatitis C Antibody Nonreactive Nonreactive [facility] Comment:Antibodies to HCV no t detected; does not exclude early acuteHCV infection. Hepatitis B Surface Ag Negative Negative [facility] 08/13/2024 11:4 9 AM EST 08/13/2024 11:49 AM EST us Generic External Data Provider LAB BLOOD ORDERAB LES Final Result [facility] [address] [place] [phone] * (ABNORMAL) CBC auto differential (08/13/2024 11:49 AM EST) Pathologist [facility] White Blood Count 6.4 4.8 - 10.8 X10*3/uL [facility] Red Blood Count 4.90 4.60 - 5.80 X10*6/uL [facility] Hemoglobin 15.0 14.0 - 18.0 g/dl [facility] Hematocrit 45.1 42.0 - 52.0 % [facility] Mean Corpuscular Volume 92.0 80.0 - 98.0 fL [facility] Mean Corpuscular Hemoglobin 30.6 27.0 - 33.0 pg [facility] Mean Corpuscular HGB Conc 33.3 31.0 - 36.0 g/dl [facility] Red Cell Distribution Width 13.2 11.0 - 16.0 % [facility] Platelet Count 284 160 - 400 X10*3/uL [facility] Mean Platelet Volume 9.2(L) 9.4 - 12.4 fL [facility] Neutrophils Percent Auto 35.5(L) 45 - 73 % [facility] Imm Gran Pct Auto 0.3 0.0 - 0.4 % [facility] Lymphocytes Percent Auto 53.2(H) 20 - 40 % [facility] Monocytes Percent Auto 6.1 2 - 11 % [facility] Eosinophils Percent Auto 4.3(H) 0 - 4 % [facility] Basophils Percent Auto 0.6 0 - 2 % [facility] NRBC Pct Auto 0.0 0.0 - 0.2 /100WBC [facility] Neutrophils Absolute Auto 2.3 2.0 - 8.3 x10*3/uL [facility] Imm Gran Abs Auto 0.02 0.00 - 0.03 X10*3/uL [facility] Lymphocytes Absolute Auto 3.4 1.2 - 4.9 X10*3/uL [facility] Monocytes Absolute Auto 0.4 0.1 - 1.2 X10*3/uL [facility] Eosinophils Absolute Auto 0.3 0.0 - 0.4 X10*3/uL [facility] Basophils Absolute Auto 0.0 0.0 - 0.2 X10*3/uL [facility] NRBC Abs Auto 0.000 0.0 - 0.012 X10*3/uL [facility] 08/13/2024 11:4 9 AM EST 08/13/2024 11:49 AM EST us Generic External Data Provider LAB BLOOD ORDERAB LES Final Result [facility] [address] [place] [phone] * HLA-B27 Antigen (08/13/2024 11:49 AM EST) HLA-B27 Antigen Negative Negative [facility] Comment:THIS TEST WAS PERFOR MED AT:[id number] [place] [id number] SMITH MD,PHD 08/13/2024 11:4 9 AM EST 08/13/2024 11:49 AM EST us Generic External Data Provider LAB BLOOD ORDERAB LES Final Result Performing Organization Address [facility] Co de Phone Number [facility] [address] [place] [phone] * Hepatitis B Virus DNA, Quantitative, Real-Time PCR (08/13/2024 11:49 AM EST) Pathologist [facility] Hepatitis B Viral DNA Qn - cp NOT DETECTED NOT DETECTED Log IU/mL [facility] Comment:This test was perfor med using Real-Time Polymerase ChainReaction.Reportable Range: 10 IU/mL to 1,000,000,000 IU/mL.(1.00 Log IU/mL to 9.00 Log IU/mL).THIS TEST WAS PERFORMED AT:[employer] [place] [phone] RECINOS MD Hepatitis B Viral DNA Qn-IU/mL NOT DETECTED NOT DETECTED IU/mL [facility] 08/13/2024 11:4 9 AM EST 08/13/2024 11:49 AM EST us Generic External Data Provider LAB BLOOD ORDERAB LES Final Result Performing Organization Address [facility] de Phone Number [facility] [address] [place] [phone] * Sed Rate by Modified Marceloren (08/13/2024 11:49 AM EST) Pathologist [facility] Erythrocyte Sedimentation Rate 5 0 - 15 MM/HR [facility] Comment:Patients with polycy themia and many hemoglobin abnormalitiesmay have depressed sed rates whereas patients with anemiamay have elevated sed rates. 08/13/2024 11:4 9 AM EST 08/13/2024 11:49 AM EST us Generic External Data Provider LAB BLOOD ORDERAB LES Final Result Performing Organization Address City/[facility] Co de Phone Number [facility] [address] [place] [address] [phone] * C-reactive Protein (08/13/2024 11:49 AM EST) C Reactive Protein 0.24 < or = 0.50 mg/dL [facility] 08/13/2024 11:4 9 AM EST 08/13/2024 11:49 AM EST us Generic External Data Provider LAB BLOOD ORDERAB LES Final Result [facility] [address] [place] [address] [phone] * (ABNORMAL) Comprehensive Metabolic Panel (08/13/2024 11:49 AM EST) Pathologist [facility] Sodium 142 135 - 145 mmol/L [facility] Potassium 4.8 3.3 - 5.1 mmol/L [facility] Chloride 106 96 - 108 mmol/L [facility] Carbon Dioxide 29 22 - 29 mmol/L [facility] Anion Gap 12 12 - 20 [facility] Urea Nitrogen (BUN) 13 9 - 16 mg/dL [facility] Creatinine, Serum 1.05 0.5 - 1.4 mg/dL [facility] Estimated Glomerular Filt Rate >60 [facility] Comment:NOTE: For -Am erican individuals, multiply the result by 1.210.Chronic Kidney Disease: Estimated GFR < 60 mL/min/1.30y4Nydpkg Kidney Disease: Estimated GFR < 15 mL/min/1.73m2 Glucose 131(H) 60 - 115 mg/dL [facility] Calcium 10.3(H) 8.4 - 10.2 mg/dL [facility] Bilirubin, Total 0.4 0.0 - 1.0 mg/dL [facility] Aspartate Amino Transferase 28 5 - 37 U/L [facility] Alanine Aminotransferase 29 0 - 40 U/L [facility] Total Protein 7.7 6.5 - 8.0 g/dL [facility] Albumin Level 4.4 3.5 - 5.0 g/dL [facility] Alkaline Phosphatase 83 39 - 117 U/L [facility] 08/13/2024 11:4 9 AM EST 08/13/2024 11:49 AM EST us Generic External Data Provider LAB BLOOD ORDERAB LES Final Result Performing Organization Address [facility]/ZIP Co de Phone Number [facility] [address] [place] [phone] * Cyclic Citrullinated Peptide (CCP) Antibody (IgG) (08/08/2024 10:40 AM EDT) Cyclic Citrullinated Peptide <16 UNITS [facility] Comment:Reference RangeNegat shalom: <20Weak Positive: 20-39Moderate Positive: 40-59Strong Positive: >59THIS TEST WAS PERFORMED AT:[facility] [place] [phone] RECINOS MD Blood Venous blood specimen / Unknown 08/08/2024 10:40 AM EDT 08/08/2024 1:17 PM EDT us Tirso Jara MD LAB BLOOD ORDERABL ES Final Result Performing Organization Address [facility] Co de Phone Number [facility] [address] [place] [phone] * Rheumatoid Factor (08/08/2024 10:40 AM EDT) Rheumatoid Factor <13.0 <15.0 IU/mL [facility] Blood Venous blood specimen / Unknown 08/08/2024 10:40 AM EDT 08/08/2024 1:17 PM EDT us Tirso Jara MD LAB BLOOD ORDERABL ES Final Result Performing Organization Address City/[facility] Co de Phone Number [facility] [address] [place] [phone] * MR Cervical Spine w/o Contrast (08/04/2024 8:43 AM EDT) Anatomical Region Laterality Modality Spine, C-spine Magnetic Resonan ce 08/04/2024 8:43 AM EDT Narrative 09/25/2024 10:03 AM EST ? [facility] ?[address] ?[place] [address] ? Magnetic Resonance Report ? Signed ? Patient: Royalston Elkins,Kvng E ?MR#: [id number] ?? [id number] ? : 1965 ?Acct:[id number] ? Age/Sex: 59 / M ?ADM Date: 08/04/24 ? Loc: HO.MRI ? Attending Dr: Yu ELIZONDO ? Ordering Physician: Yu Vizcarra ?? Date of Service: 08/04/24 ?? Procedure(s): MR cervical spine wo con ?? Accession Number(s): [id number] ? cc: Yu Vizcarra; Koki Vu MD ? EXAMINATION: ?? MR CERVICAL SPINE WITHOUT CONTRAST ? CLINICAL INFORMATION: ?? Cervicalgia. ACDF C5-C7. ? COMPARISON: ?? MR cervical 02/06/2020. ?? Cervical plain films 05/13/2021. ? TECHNIQUE: ?? Multiplanar multisequence MR imaging of the cervical spine was done ?? prior to and without the administration IV gadolinium. Examination was ?? performed on a 1.5 Hayley Siemens unit, using standard sequences. ? 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 ? FINDINGS: ? CORONAL ALIGNMENT: ?? -There is a mild levoconvex scoliosis, apex at C5, unchanged. ? SAGITTAL ALIGNMENT: ?? -Straightening of the normal lordosis is present. ?? -There is a stable minimal 2 mm degenerative anterolisthesis of C3 on C4 ?? -Stable trace 2 mm retrolisthesis of C4 on C5, and a 3 mm ?? anterolisthesis of C7 on T1. ?? -Stable Trace anterolisthesis T1 on T2. ? CRANIOCERVICAL JUNCTION/C1-2 ARTICULATIONS: ?? -Intact and aligned. ?? -Moderate degenerative arthrosis. ? VERTEBRAL BODIES/BONE MARROW: ?? -There has been anterior fusion and discectomy of C5-C7 with disc ?? prostheses and oblique interbody endplate anchors. The hardware creates ?? localized susceptibility artifact obscuring immediately adjacent soft ?? tissue and bone. ?? -There are no compression deformities. ?? -There are mild irregular and worsening edematous endplate changes ?? present at C4-5. ?? -No additional bone marrow edema, or abnormal infiltrating bone marrow ?? signal. ?? -Prominent Schmorl's node in the inferior endplate of C4. ? DISCS: ?? -Disc prostheses C5-6 and C6-7. ?? -Severe loss of disc height and signal C4-5, worsening. ?? -Moderate loss present C7-T1, T1-T2, T2-T3, similar. ?? -Mild to moderate loss C2-3, C3-4, similar. ? CERVICAL CORD: ?? -Normal in caliber and signal throughout. No evidence of cord ?? impingement, flattening, or signal abnormality. See below. ? PARAVERTEBRAL SOFT TISSUES: ?? -Normal appearance. Thyroid is obscured by a saturation band. ? VISUALIZED INTRACRANIAL STRUCTURES: ?? -Normal. ?? -Normal vertebral artery flow voids present. ? AXIAL DISC SPACE IMAGING: ? C2-C3: Minimal shallow diffuse disc bulge present, moderate right and ?? mild left hypertrophic degenerative facet change, mild bilateral ?? uncinate spurring, with findings resulting in no significant central ?? canal stenosis. No lateral recess narrowing. There is severe right and ?? mild left neural foraminal stenosis. No change. ? C3-C4: There is a minimal shallow diffuse disc bulge, slightly ?? asymmetrically prominent to the left, and contiguous with bilateral ?? left greater than right uncinate spurring. This indents upon the ?? ventral thecal sac but does not contact the cord. There is mild central ?? canal narrowing and minimal left lateral recess narrowing. Moderate to ?? severe left facet and uncinate spurring, and mild right facet and ?? uncinate spurring contributes to moderate right and severe left neural ?? foraminal encroachment. No change. ? C4-C5: There are disc degeneration. There is a diffuse disc osteophytic ?? ridge complex present, extending into the right greater than left ?? foraminal zones, and more focally prominent in the left lateral recess. ?? This indents upon the ventral thecal sac, but does not definitively ?? contact the ventral cord. There is mild central cord flattening on the ?? sagittal T2. Thin sliver of preserved CSF signal is present surrounding ?? the cord. Severe bilateral uncinate spurring, and mild bilateral facet ?? spurring left greater than right. Combination of findings is resulting ?? in mild/moderate central canal stenosis, mild to moderate bilateral ?? subarticular recess stenosis, and severe bilateral right greater than ?? left neural foraminal stenosis. There has been mild worsening of ?? spondylosis at this level. ? C5-C6: Interval anterior fusion and discectomy. The central canal has ?? been decompressed. Mild right greater than left facet hypertrophy is ?? present. There is significant left greater than right uncinate ?? spurring. Combination of findings is resulting in mild to moderate left ?? and moderate right neural foraminal stenosis. ? C6-C7: Interval anterior fusion and discectomy. The central canal has ?? been decompressed. Severe bilateral uncinate spurring and mild ?? bilateral facet spurring contribute to severe bilateral neural ?? foraminal encroachment. ? C7-T1: Mild disc uncovering secondary to degenerative anterolisthesis, ?? minimal shallow disc bulging, without mass effect upon the thecal sac. ?? Moderate right greater than left hypertrophic degenerative facet ?? changes, with combination of findings resulting in mild left and ?? moderate to severe right neural foraminal stenosis. ? T1-T2: Right greater than left hypertrophic facet changes present, a ?? shallow diffuse disc bulge, with findings contributing to mild central ?? canal stenosis, moderate to severe right greater than left neural ?? foraminal stenosis. ? T2-T3: Only seen on the sagittal images, a right lateral disc extrusion ?? has decreased significantly in size and extent. No current mass effect ?? upon the cord. Mild bilateral neural foraminal narrowing. ? MR/MR cervical spine wo con ?? IMPRESSION: ? 1. Since the prior MRI, there has been anterior fusion and discectomy ?? of C5-C7 with disc prostheses and oblique interbody endplate anchors. ?? Hardware creates localized susceptibility artifact. The central canal ?? has been decompressed at C5-6 and C6-7. ?? 2. There is mild to moderate central canal stenosis at C4-5, above the ?? fusion construct, where there is edematous endplate changes, a disc ?? osteophytic ridge complex which indents minimally upon the ventral cord ?? without cord impingement. Worsening degenerative disc, uncinate, and ?? facet changes contribute to severe bilateral right greater than left ?? neural foraminal stenosis. ?? 3. At C5-6, there is moderate right neural foraminal stenosis. At C6-7, ?? there is severe bilateral neural foraminal stenosis. At C7-T1, there is ?? mild left and moderate to severe right neural foraminal stenosis. At ?? T1-T2, there is moderate to severe right greater than left neural ?? foraminal stenosis. ?? 4. There is no evidence of cord impingement or signal abnormality. ?? 5. Edematous endplate changes at C4-5. ?? 6. See above for further detail and ancillary findings. ? Electronically signed by: ??Kenny Ho MD ??09/25/2024 10:00 AM EST RP ?? Workstation: [id number] ? Dictated By: ?Kneny Ho MD ? Signed By: ?<Electronically signed by Kenny Ho MD in OV> ?09/25/24 1000 ? DD/ 0843 ? TD/TT: 08/04/2424 ? Admin Asst: ? Procedure Note David Cheng - 09/25/[address] [id number] Magnetic Resonance Report Signed Patient: Kvng Ramon EMR#: [id number] : 1965Acct:[id number] Age/Sex: 59 / MADM Date: 08/04/24 Loc: HO.MRI Attending Dr: Yu ELIZONDO Ordering Physician: Yu Vizcarra Date of Service: 08/04/24 Procedure(s): MR cervical spine wo con Accession Number(s): [id number] cc: Yu Vizcarra; Koki Vu MD EXAMINATION: MR CERVICAL SPINE WITHOUT CONTRAST CLINICAL INFORMATION: Cervicalgia. ACDF C5-C7. COMPARISON: MR cervical 02/06/2020. Cervical plain films 05/13/2021. TECHNIQUE: Multiplanar multisequence MR imaging of the cervical spine was done prior to and without the administration IV gadolinium. Examination was performed on a 1.5 Hayley Siemens unit, using standard sequences. 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 FINDINGS: CORONAL ALIGNMENT: -There is a mild levoconvex scoliosis, apex at C5, unchanged. SAGITTAL ALIGNMENT: -Straightening of the normal lordosis is present. -There is a stable minimal 2 mm degenerative anterolisthesis of C3 on C4 -Stable trace 2 mm retrolisthesis of C4 on C5, and a 3 mm anterolisthesis of C7 on T1. -Stable Trace anterolisthesis T1 on T2. CRANIOCERVICAL JUNCTION/C1-2 ARTICULATIONS: -Intact and aligned. -Moderate degenerative arthrosis. VERTEBRAL BODIES/BONE MARROW: -There has been anterior fusion and discectomy of C5-C7 with disc prostheses and oblique interbody endplate anchors. The hardware creates localized susceptibility artifact obscuring immediately adjacent soft tissue and bone. -There are no compression deformities. -There are mild irregular and worsening edematous endplate changes present at C4-5. -No additional bone marrow edema, or abnormal infiltrating bone marrow signal. -Prominent Schmorl's node in the inferior endplate of C4. DISCS: -Disc prostheses C5-6 and C6-7. -Severe loss of disc height and signal C4-5, worsening. -Moderate loss present C7-T1, T1-T2, T2-T3, similar. -Mild to moderate loss C2-3, C3-4, similar. CERVICAL CORD: -Normal in caliber and signal throughout. No evidence of cord impingement, flattening, or signal abnormality. See below. PARAVERTEBRAL SOFT TISSUES: -Normal appearance. Thyroid is obscured by a saturation band. VISUALIZED INTRACRANIAL STRUCTURES: -Normal. -Normal vertebral artery flow voids present. AXIAL DISC SPACE IMAGING: C2-C3: Minimal shallow diffuse disc bulge present, moderate right and mild left hypertrophic degenerative facet change, mild bilateral uncinate spurring, with findings resulting in no significant central canal stenosis. No lateral recess narrowing. There is severe right and mild left neural foraminal stenosis. No change. C3-C4: There is a minimal shallow diffuse disc bulge, slightly asymmetrically prominent to the left, and contiguous with bilateral left greater than right uncinate spurring. This indents upon the ventral thecal sac but does not contact the cord. There is mild central canal narrowing and minimal left lateral recess narrowing. Moderate to severe left facet and uncinate spurring, and mild right facet and uncinate spurring contributes to moderate right and severe left neural foraminal encroachment. No change. C4-C5: There are disc degeneration. There is a diffuse disc osteophytic ridge complex present, extending into the right greater than left foraminal zones, and more focally prominent in the left lateral recess. This indents upon the ventral thecal sac, but does not definitively contact the ventral cord. There is mild central cord flattening on the sagittal T2. Thin sliver of preserved CSF signal is present surrounding the cord. Severe bilateral uncinate spurring, and mild bilateral facet spurring left greater than right. Combination of findings is resulting in mild/moderate central canal stenosis, mild to moderate bilateral subarticular recess stenosis, and severe bilateral right greater than left neural foraminal stenosis. There has been mild worsening of spondylosis at this level. C5-C6: Interval anterior fusion and discectomy. The central canal has been decompressed. Mild right greater than left facet hypertrophy is present. There is significant left greater than right uncinate spurring. Combination of findings is resulting in mild to moderate left and moderate right neural foraminal stenosis. C6-C7: Interval anterior fusion and discectomy. The central canal has been decompressed. Severe bilateral uncinate spurring and mild bilateral facet spurring contribute to severe bilateral neural foraminal encroachment. C7-T1: Mild disc uncovering secondary to degenerative anterolisthesis, minimal shallow disc bulging, without mass effect upon the thecal sac. Moderate right greater than left hypertrophic degenerative facet changes, with combination of findings resulting in mild left and moderate to severe right neural foraminal stenosis. T1-T2: Right greater than left hypertrophic facet changes present, a shallow diffuse disc bulge, with findings contributing to mild central canal stenosis, moderate to severe right greater than left neural foraminal stenosis. T2-T3: Only seen on the sagittal images, a right lateral disc extrusion has decreased significantly in size and extent. No current mass effect upon the cord. Mild bilateral neural foraminal narrowing. MR/MR cervical spine wo con IMPRESSION: 1. Since the prior MRI, there has been anterior fusion and discectomy of C5-C7 with disc prostheses and oblique interbody endplate anchors. Hardware creates localized susceptibility artifact. The central canal has been decompressed at C5-6 and C6-7. 2. There is mild to moderate central canal stenosis at C4-5, above the fusion construct, where there is edematous endplate changes, a disc osteophytic ridge complex which indents minimally upon the ventral cord without cord impingement. Worsening degenerative disc, uncinate, and facet changes contribute to severe bilateral right greater than left neural foraminal stenosis. 3. At C5-6, there is moderate right neural foraminal stenosis. At C6-7, there is severe bilateral neural foraminal stenosis. At C7-T1, there is mild left and moderate to severe right neural foraminal stenosis. At T1-T2, there is moderate to severe right greater than left neural foraminal stenosis. 4. There is no evidence of cord impingement or signal abnormality. 5. Edematous endplate changes at C4-5. 6. See above for further detail and ancillary findings. Electronically signed by: Kenny Ho MD 09/25/2024 10:00 AM EST Dictated By: Kenny Ho MD Signed By: <Electronically signed by Kenny Ho MD in OV> 09/25/24 1000 DD/ TD/TT: 08/04/24923 Admin Asst: [facility] External Provider IMG MRI PROCEDURES Edited Result - Final * Cologuard?? colon cancer screening (08/10/2023 3:59 PM EDT) Cologuard Result Negative Negative 08/17/20 9:57 AM EST [employer] [employer] (CLIA #:[id number]) Comment: NEGATIVE TEST RESULT. A negative Cologuard result indicates a low likelihood that a colorectal cancer (CRC) or advanced adenoma (adenomatous polyps with more advanced pre-malignant features) ??is present. The chance that a person with a negative Cologuard test has a colorectal cancer is less than 1 in 1500 (negative predictive value >99.9%) or has an ??advanced adenoma is less than ??5.3% (negative predictive value 94.7%). These data are based on a prospective cross-sectional study of 10,000 individuals at average risk for colorectal cancer who were screened with both Cologuard and colonoscopy. (Harris Cordero et al, N Engl J Med 2014;370(14):1286- 1297) The normal value (reference range) for this assay is negative. COLOGUARD RE-SCREENING RECOMMENDATION: Periodic colorectal cancer screening is an important part of preventive healthcare for asymptomatic individuals at average risk for colorectal cancer. ??Following a negative Cologuard result, the [place] [employer] and U.S. Multi-Society Task Force screening guidelines recommend a Cologuard re-screening interval of 3 years. References: [place] [employer] Guideline for Colorectal Cancer Screening: https://www.cancer.org/cancer/xygvh-xdrneu-gqkiyf/pqwqvdlpq-kzxcyrfzl-wydrbsp/ac s-rec ommendations.html.; Delroy DK, Rere CR, Guy RochaK, Colorectal Cancer Screening: Recommendations for Physicians and Patients from the U.S. Multi-Society Task Force on Colorectal Cancer Screening , Am J Gastroenterology 2017; 112:3048-3335. TEST DESCRIPTION: Composite algorithmic analysis of stool DNA-biomarkers with hemoglobin immunoassay. ?? Quantitative values of individual biomarkers are not reportable and are not associated with individual biomarker result reference ranges. Cologuard is intended for colorectal cancer screening of adults of either sex, 45 years or older, who are at average-risk for colorectal cancer (CRC). Cologuard has been approved for use by the U.S. FDA. The performance of Cologuard was established in a cross sectional study of average-risk adults aged 50-84. Cologuard performance in patients ages 45 to 49 years was estimated by sub-group analysis of near-age groups. Colonoscopies performed for a positive result may find as the most clinically significant lesion: colorectal cancer [4.0%], advanced adenoma (including sessile serrated polyps greater than or equal to 1cm diameter) [20%] or non- advanced adenoma [31%]; or no colorectal neoplasia [45%]. These estimates are derived from a prospective cross-sectional screening study of 10,000 individuals at average risk for colorectal cancer who were screened with both Cologuard and colonoscopy. (Harris Albarran al, N Engl J Med 2014;370(14):1673-9591.) Cologuard may produce a false negative or false positive result (no colorectal cancer or precancerous polyp present at colonoscopy follow up). A negative Cologuard test result does not guarantee the absence of CRC or advanced adenoma (pre-cancer). The current Cologuard screening interval is every 3 years. ([place] [employer] and U.S. Multi-Society Task Force). Cologuard performance data in a 10,000 patient pivotal study using colonoscopy as the reference method can be accessed at the following location: www.[facility]/results. Additional description of the Cologuard test process, warnings and precautions can be found at www.[employer].saambaa. Stool specimen (specimen) 08/10/2023 3:59 PM EDT 08/11/2023 6:19 PM EDT us Koki Vu MD LAB MOLECULAR DIAGNOSTICS ORD ERABLES Final Result [employer] (CLIA #:[id number]) [place] [address], * Hemoglobin A1c (05/15/2023 12:13 PM EDT) Hemoglobin A1c 5.7 % [facility] Comment:Hemoglobin A1C Refer ence Range Adults: 4.8 - 6.0 % Non diabetic: < 6.0 % Goal: < 7.0 %Additional Action Suggested: > 8.0 %Note: Hemoglobin A1c results are invalid for patients with abnormal amounts of HbF. Blood transfusions may impact the HbA1c concentration in the patient sample. Estimated Average Glucose 117 mg/dL [facility] Comment:eAG = Estimated ave rage glucose which is %A1C expressed asaverage glucose, using the formula of the P3N-ZqoszndAncgaej Glucose study (ADAG), Diabetes Care, Vol.31,#8,May. 2007 Blood Venous blood specimen / Unknown 05/15/2023 12:13 PM EDT 05/15/2023 2:16 PM EDT us Koki Vu MD LAB BLOOD ORDERABLES Final Re sult [facility] [address] [place] [phone] * (ABNORMAL) LIPID PANEL, STANDARD (04/15/2022 9:27 AM EDT) Chol/HDLC Ratio 3.8 <5.0 (calc) [facility] Cholesterol, Total 204(H) <200 mg/dL [facility] HDL Cholesterol 53 > OR = 40 mg/dL [facility] LDL Cholesterol 129(H) mg/dL (calc) [facility] Comment: Reference range: <100 ?? Desirable range <100 mg/dL for primary prevention; ?? <70 mg/dL for patients with CHD or diabetic patients ?? with > or = 2 CHD risk factors. ?? LDL-C is now calculated using the [place] ?? calculation, which is a validated novel method providing ?? better accuracy than the Friedewald equation in the ?? estimation of LDL-C. ?? Mo JAY et al. RADHA. 2013;310(19): 6283-2786 ?? (http://education.[employer]ARKMARX.saambaa/faq/FBK746) Non-HDL Cholesterol 151(H) <130 mg/dL (calc) [facility] Comment: For patients with diabetes plus 1 major ASCVD risk ?? factor, treating to a non-HDL-C goal of <100 mg/dL ?? (LDL-C of <70 mg/dL) is considered a therapeutic ?? option. Triglycerides 109 <150 mg/dL [facility] 04/15/2022 9:27 AM EDT us Koki Vu MD LAB BLOOD ORDERABLES Final Re sult Performing Organization Address City/[facility]/ZIP Co de Phone Number [facility] [address] [place] [address], * Hm Colonoscopy (04/17/2018 6:07 AM EDT) us Historical Provider HEALTH MAINTENANCE Final Result from Last 3 Months or Most Recently Relevant to Health Maintenance [place] [place] [address] C3 Care Teams Route Jumper Relationship Specialty Start Date End Date Koki Vu MD [address] [place] [phone] PCP - General Family Medicine 10/23/20 Addie Dairy ConsultantSnake Charmer 06/17/24
--- OUTSIDE RECORDS SUMMARY | 2024-11-01 16:11 | XMS_ITS | Clinical Summary ---
Author Organization [facility] Address [address] [place] [address] Care Team Providers Care Seafood Preparer Name Role Phone Vu Koki Primary Care Provider [phone] Allergies No known active allergies Medications amitriptyline (ELAVIL) 50 mg tablet Take 1 tablet by mouth at bed time. 4 Active amLODIPine (NORVASC) 5 mg tablet Take 5 mg by mouth daily. 3 Active atorvastatin (LIPITOR) 80 mg tablet Take 1 tablet by mouth at bed time. 4 Active bumetanide (BUMEX) 1 mg tablet SMARTSI Tablet(s) By Mouth Daily Active busPIRone (BUSPAR) 15 mg tablet SMARTSI Tablet(s) By Mouth Twice Daily 4 Active escitalopram (LEXAPRO) 20 mg tablet SMARTSI Tablet(s) By Mouth Every Night 4 Active EnbreL SureClick 50 mg/mL (1 mL) injection SMARTSIG:SUB-Q 4 Active levothyroxine (SYNTHROID, LEVOTHROID) 88 mcg tablet Take 1 tablet by mouth once a day. 4 Active loratadine (CLARITIN) 10 mg tablet SMARTSI Tablet(s) By Mouth Daily 4 Active omeprazole (PriLOSEC) 40 mg capsule SMARTSI Capsule(s) By Mouth Daily 4 Active Advair Diskus 250-50 mcg/dose inhalerIndication s:Dyspnea on exertion,Moderate persistent asthma without complication Inhale 1 puff by mouth 2 times a day. Rinse mouth with water after use. Do not swallow. 180 each 3 4 09/27/20 25 Active Ventolin HFA 90 mcg/actuation inhalerIndication s:Dyspnea on exertion,Moderate persistent asthma without complication Inhale 2 puffs (180 mcg total) by mouth every 4 hours as needed for wheezing or shortness of breath. Use with spacer. 18 g 5 4 09/27/20 25 Active Active Problems Problem Noted Date Diagnosed Date Dyspnea on exertion 03/21/2024 Hypertension 06/08/2023 Overview (03/22/2024): Last Assessment & Plan: Controlled: will keep monitoring. Advised to keep taking blood pressure at home. 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 Psoriatic arthritis 06/14/2019 Steatosis of liver 01/29/2019 Cervical radiculitis 09/06/2018 Gastro-esophageal reflux disease with esophagiti s 05/30/2018 Avascular necrosis of left femoral head 04/15/20 18 Overview (03/22/2024): Patient reports he side effect with fentanyl pump and that he does not have it. Last Assessment & Plan: Admits he did not tolerate fentanyl pump and had it removed. Currently not on any medication for pain management. Esophageal dysmotility 01/16/2018 Chronic low back pain 12/11/2017 Overview (03/22/2024): Last Assessment & Plan: Not responsive to opiate medications. At this point will send a trial of Lyrica. Will need to proceed with PA for this. Severe recurrent major depression with psychotic features 12/11/2017 Overview (03/22/2024): Last Assessment & Plan: PHQ9: 17,denies SI Already f w psychiatrist and therapist at [facility] ---advised to continue care and may need eval if meds can be adjusted Encounters Date Type Department Care Team Description 09/27/2024 10:50 AM EST Follow-Up [facility] [address] [place] [address] Horse Shoer: Satinder Sanders, DO Dyspnea on exertion (Primary Dx); Moderate persistent asthma without complication 09/24/2024 Telephone [facility] [address] [place] [address] Horse Shoer: Katiana Pandya MA from Last 3 Months Immunizations Name Administration Dates Next Due Hepatitis A Vaccine, Adult Dosage 08/14/2019 Hepatitis B adult (ENGERIX-B ADULT) vaccine 1 mL IM 08/14/2019 Influenza, Injectable, Quadr ivalent, Contains Preservative 09/06/2018,12/11/2017 Influenza, Injectable, Quadr ivalent, Preservative Free 07/31/2023,07/02/2021,08/26/2020,2018 Pneumococcal Conjugate Vacci ne, 13 Valent 06/07/2019 Pneumococcal conjugate PCV20,polysaccharide [id number] conjugate, adjuvant, PF (Prevnar 20) 02/01/2024 RSV, Bivalent, Protein Subun it RSVpreF, Diluent Reconstituted, 0.5 mL, PF 02/16/2024 Tetanus Toxoid, Reduced Diph theria Toxoid, and Acellular Pertussis Vaccine, Adsorbed 07/10/2019 Zoster Vaccine Recombinant 06/27/2022,04/25/2022 Social History Tobacco Use Types Packs/Day Years Used Date Smoking Tobacco: Never Assessed Sex and Gender Information Value Date Recorded Sex Assigned at Male 12/26/2023 2:25 PM EDT Legal Sex Male 9:25 AM EDT Gender Identity Male 03/26/2024 2:35 PM EDT Sexual Orientation Straight 03/26/2024 2: 35 PM EDT Last Filed Vital Signs Vital Sign Reading Time Taken Comments Blood Pressure 137/83 09/27/2024 10:28 AM EST Pulse 76 09/27/2024 10:28 AM EST Temperature - - Respiratory Rate 20 09/27/2024 10:28 AM EST Oxygen Saturation 99% 09/27/2024 10:28 AM EST Inhaled Oxygen Concentration - - Weight 79.4 kg (175 lb) 09/27/2024 10:28 AM EST Height - - Body Mass Index - - Plan of Treatment Health Maintenance Due Date Last Done Comments Colonoscopy 1963 HIV Screening 1963 Hepatitis C Screening 1963 Sigmoidoscopy 1963 FOBT / Fit Test 05/15/2024 05/15/2023 COVID-19 Vaccine ( - 2023-2 5 season) 2024 04/27/2022, 09/23/2021, 01/18/2021, Additional history exists Alcohol/Substance Use Screening 10/09/2024 Depression Evaluation 10/09/2024 Social Drivers of Health Evelyn ual Screening 10/09/2024 Basic Metabolic Panel 08/13/2025 08/13/2024 , 02/14/2024, 12/31/2023 Cologuard 08/10/2026 08/10/2023, 08/10/2023 Colon Cancer Screening 08/10/2026 DTaP,Tdap,and Td Vaccines (2 - Td or Tdap) 07/10/2029 07/10/2019 Zoster Vaccines Completed 06/27/2022, 04/25/2022 Pneumococcal Vaccine: Pediat misti (0-5 Years) and At-Risk Patients (6-64 Years) Completed 02/01/2024, 06/07/2019 RSV Vaccine (60+ years old a nd patients) Completed 02/16/2024 Hepatitis B Vaccines Completed 04/16/2024, 02/16/2024, 08/14/2019 Influenza Vaccine Completed 06/24/2024, , 07/02/2021, Additional history exists Insurance Care Teams Seafood Preparer Relationship Specialty Start Date End Date Koki Vu [address] [place] [address] PCP - General 12/26/23
--- OUTSIDE RECORDS SUMMARY | 2024-11-01 16:11 | XMS_ITS | Referral Summary ---
Author Organization [facility] Address [address] [place] [address] Care Team Providers Care Adventure Education Teacher Name Role Phone VuKoki Primary Care Provider [phone] Encounters Date Type Department Care Team Description 09/27/2024 10:50 AM EST Follow-Up [facility] [address] [place] [address] Flight Hostess: Satinder Sanders, Dyspnea on exertion (Primary Dx); Moderate persistent asthma without complication 09/24/2024 Telephone [facility] [address] [place] [address] Flight Hostess: Katiana Pandya MA from Last 3 Months Allergies No known active allergies Medications amitriptyline [...] not swallow. 180 each 3 4 09/27/20 Active Ventolin HFA 90 mcg/actuation inhalerIndication s:Dyspnea on exertion,Moderate persistent asthma without complication Inhale 2 puffs (180 mcg total) by mouth every 4 hours as needed for wheezing or shortness of breath. Use with spacer. 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 Psoriatic arthritis [...] Already f w psychiatrist and therapist at [facility] ---advised to continue care and may need eval if meds can be adjusted Immunizations Name Administration Dates Next Due Hepatitis A Vaccine, Adult Dosage 08/14/2019 Hepatitis B adult (ENGERIX-B ADULT) vaccine 1 mL IM 08/14/2019 Influenza, Injectable, Quadr ivalent, Contains Preservative 09/06/2018,12/11/2017 Influenza, Injectable, Quadr ivalent, Preservative Free 07/31/2023,07/02/2021,08/26/2020,2018 Pneumococcal Conjugate Vacci ne, 13 Valent 06/07/2019 Pneumococcal conjugate PCV20,polysaccharide [id number] conjugate, adjuvant, PF (Prevnar 20) 02/01/2024 RSV, [...] Mass Index - - Plan of Treatment Not on file Insurance Care Teams Adventure Education Teacher Relationship Specialty Start Date End Date Koki Vu [address] [place] [phone] PCP - General 12/26/23
--- OUTSIDE RECORDS SUMMARY | 2024-11-01 16:11 | XMS_ITS | Encounter Summary ---
Author Organization [employer] Address [address] 7[address] [place] [address] Care Team Providers Care Tattooer Name Role Phone Koki Vu MD Primary Care Provider [phone] Encounter Details Date Type Department Care Team (Late st Contact Info) Description 02/05/2024 Orders Only [facility] [address] [place] [address] Provider, MD Nasima Social History Tobacco Use Types Packs/Day Years [...] Procedure Name Priority Date/Time Associated Diagnosis Comments HM COLONOSCOPY Routine 04/17/2018 6:07 AM EDT documented in this encounter Results * Hm Colonoscopy (04/17/2018 6:07 AM EDT) us Historical Provider HEALTH MAINTENANCE Final Result documented in this encounter Visit Diagnoses Not on filedocumented in this encounter Additional Health Concerns Assessment Noted Time PHQ-9 Depression Total Score: 17 023 11:11 AM EDT documented as of this encounter Care Teams Tattooer Relationship Specialty Start Date End Date Koki Vu MD [address] [place] [phone] PCP - General Family Medicine 10/23/20 Addie Management Development SpecialistRailroad Purchasing Agent 06/17/24 documented as of this encounter
--- OUTSIDE RECORDS SUMMARY | 2024-11-01 16:11 | XMS_ITS | Clinical Summary ---
Author Organization [facility] [employer] [facility] Address [address] [place] [address] Care Team Providers Care Manager Wound Name Role Phone Jessica Rogers MD Primary Care Provider [phone] Social History Tobacco Use Types Packs/Day Years Used Date Smoking Tobacco: Never Assessed Sex and Gender Information Value Date Recorded Sex Assigned at Not on file Gender Identity Not on file Sexual Orientation Not on file Plan of Treatment Health Maintenance Due Date Last Done Comments DTaP,Tdap,and Td Vaccines (1 - Tdap) 1982 Zoster Vaccines (1 of 2) 2013 Cholesterol Screening (Lipid Panel) 09/07/2022 Colorectal Cancer Screening: Colonoscopy 09/07/2022 Depression Screening 09/07/2022 HIV Screening 09/07/2022 Hepatitis C Screening 09/07/2022 Social Influencers of Health Screening 09/07/2022 COVID-19 Vaccine ( - 2023-2 5 season) 2024 Influenza Vaccine (#1) 2024 RSV Immunization Patients 60 + Years Old (1 - 1-dose 75+ series) 2038 HIB Vaccines Aged Out No longer eligi ble based on patient's age to complete this topic HPV Vaccines Aged Out No longer eligi ble based on patient's age to complete this topic Hepatitis A Vaccines Aged Out No long er eligible based on patient's age to complete this topic Hepatitis B Vaccines Aged Out No long er eligible based on patient's age to complete this topic IPV Vaccines Aged Out No longer eligi ble based on patient's age to complete this topic MMR Vaccines Aged Out No longer eligi ble based on patient's age to complete this topic Meningococcal ACWY Vaccine Aged Out N o longer eligible based on patient's age to complete this topic Pneumococcal Vaccine: Pediat rics (0 to 5 Years) and At-Risk Patients (6 to 64 Years) Aged Out No longer eligible b ased on patient's age to complete this topic RSV Immunization Patients Un jhon 20 months Aged Out No longer eligible b ased on patient's age to complete this topic Varicella Vaccines Aged Out No longer eligible based on patient's age to complete this topic Care Teams Manager Wound Relationship Specialty Start Date End Date Jessica Rogers MD [address] [place] [phone] PCP - General General Surgery 09/22/21
--- OUTSIDE RECORDS SUMMARY | 2024-11-01 16:12 | XMS_ITS | Clinical Summary ---
Author Organization [facility] Address [address] [place] [address] Care Team Providers Care Pickler Helper Name Role Phone Unavailable Primary Care Provider Unavailabl e Social History Tobacco Use Types Packs/Day Years Used Date Smoking Tobacco: Never Assessed Sex and Gender Information Value Date Recorded Sex Assigned at Not on file Gender Identity Not on file Sexual Orientation Not on file Plan of Treatment Health Maintenance Due Date Last Done Comments Hepatitis C Screening 1963 COVID-19 Vaccine (#1) 1963 Depression Screening 1975 Preventative Health Evaluation 1981 DTap / Tdap / Td (1 - Tdap) 1982 Colon Cancer Screening (Colonoscopy) 2008 Shingrix-Zoster Vaccine (1 of 2) 2013 Influenza Vaccine (#1) 2024 RSV Adult > 60+ Yrs or Pregn ant (1 - 1-dose 75+ series) 2038 Hepatitis B Vaccines Aged Out No long er eligible based on patient's age to complete this topic Pneumococcal Vaccine Aged Out No long er eligible based on patient's age to complete this topic RSV Ped < 20 months Aged Out No longe r eligible based on patient's age to complete this topic , [address] [place] [address]
--- OUTSIDE RECORDS SUMMARY | 2024-11-01 16:12 | XMS_ITS | Encounter Summary ---
Author Organization [employer] Address [address] [facility] 7t [place] [address] Care Team Providers Care Applied Behavior Specialist Name Role Phone Koki Vu MD Primary Care Provider [phone] Reason for Visit * Reason Comments Med Refill Encounter Details Date Type Department Care Team ([facility] st Contact Info) Description 10/25/2023 Refill [facility] [address], [place] [phone] Koki Vu MD [address] [place] [address] Social History Tobacco Use Types Packs/Day Years [...] documented as of this encounter Care Teams Applied Behavior Specialist Relationship Specialty Start Date End Date Koki Vu MD [address] [place] [address] PCP - General Family Medicine 10/23/20 Addie Welding InstructorMeter Engineer 06/17/24 documented as of this encounter
--- OUTSIDE RECORDS SUMMARY | 2024-11-01 16:12 | XMS_ITS | Encounter Summary ---
Author Organization [employer] [facility] Address [address] [facility] [address], [place] [address] Care Team Providers Care Miter Sawyer Name Role Phone Koki Vu MD Primary Care Provider Reason for Referral * Consultation (Routine) - Closed Specialty Diagnoses / Procedures Referred By Contac t Referred To Contact Rheumatology Diagnoses Erosion of bone Tirso Mayfield MD [address] [place] [address] Phone: tel: fax: [facility] [address] Phone: tel: fax: Referral ID Status Reason Start Date Expiration Date V isits Requested Visits Authorized [id number] Closed Specialty Services Required 08/02/2024 08/02/2025 1 1 Encounter Details Date Type Department Care Team (Late st Contact Info) Description 08/02/2024 Orders Only [facility] [address] [place] [address] Tirso Mayfield MD [address] [place] [address] Erosion of bone (Primary Dx) Social History Tobacco Use Types Packs/Day Years [...] as of this encounter Plan of Treatment Scheduled Referrals Name Type Priority Associated Diagnoses Order Schedule Referral to Rheumatology Outpatient Referral Routine Erosion of bone Expected: 08/02/2024 (Approximate), Expires: 08/02/2025 documented as of this encounter Procedures Procedure Name Priority Date/Time Associated Diagnosis Comments CYCLIC CITRULLINATED PEPTIDE (CCP) AB (IGG) Routine 08/08/2024 10:40 AM EDT Erosion of bone RHEUMATOID FACTOR Routine 08/08/2024 10: 40 AM EDT Erosion of bone documented in this encounter Results * Rheumatoid Factor (08/08/2024 10:40 AM EDT) Rheumatoid Factor <13.0 <15.0 IU/mL [facility] Blood Venous blood specimen / Unknown 08/08/2024 10:40 AM EDT 08/08/2024 1:17 PM EDT Tirso Jara MD LAB BLOOD ORDERABL ES Final Result Performing Organization Address [facility] de Phone Number [facility] [address] [place] [phone] * Cyclic Citrullinated Peptide (CCP) Antibody (IgG) (08/08/2024 10:40 AM EDT) Cyclic Citrullinated Peptide <16 UNITS [facility] Comment:Reference RangeNegat shalom: <20Weak Positive: 20-39Moderate Positive: 40-59Strong Positive: >59THIS TEST WAS PERFORMED AT:[facility] [place] [phone] RECINOS MD Blood Venous blood specimen / Unknown 08/08/2024 10:40 AM EDT 08/08/2024 1:17 PM EDT Tirso Jara MD LAB BLOOD ORDERABL ES Final Result Performing Organization Address [facility] de Phone Number [facility] [address] [place] [phone] documented in this encounter Visit Diagnoses Diagnosis Erosion of bone- Primary documented in this encounter Additional Health Concerns Assessment Noted Time PHQ-9 Depression Total Score: 17 023 11:11 AM EDT documented as of this encounter Care Teams Miter Sawyer Relationship Specialty Start Date End Date Koki Vu MD [address] [place] [address] PCP - General Family Medicine 10/23/20 Addie Heavy Antiarmor Weapons InfantrymanSpring Layer 06/17/24 documented as of this encounter
--- OUTSIDE RECORDS SUMMARY | 2024-11-01 16:12 | XMS_ITS | Encounter Summary ---
Author Organization [employer] Address [address] [facility] 7t [place] [address] Care Team Providers Care Sales Support Rep Name Role Phone Koki Vu MD Primary Care Provider [phone] Reason for Visit * Reason Comments Med Refill Encounter Details Date Type Department Care Team ([facility] st Contact Info) Description 03/28/2024 Refill [facility] [address] [place], [place] [phone] Koki Vu MD [address] [place] [address] Social History Tobacco Use Types Packs/Day Years [...] documented as of this encounter Care Teams Sales Support Rep Relationship Specialty Start Date End Date Koki Vu MD [address] [place] [phone] PCP - General Family Medicine 10/23/20 Addie Camera RepairerDirector Inbound Sales 06/17/24 documented as of this encounter
--- OUTSIDE RECORDS SUMMARY | 2024-11-01 16:12 | XMS_ITS | Encounter Summary ---
Author Organization [employer] Address [address] [facility] [address] [place] [address] Care Team Providers Care Scalehouse Attendant Name Role Phone Koki Vu MD Primary Care Provider [phone] Encounter Details Date Type Department Care Team (Late st Contact Info) Description 08/23/2023 Abstract [facility] [address] [place] [address] Koki Vu MD [address] [place] [address] Social History Tobacco Use Types Packs/Day Years [...] documented as of this encounter Care Teams Scalehouse Attendant Relationship Specialty Start Date End Date Koki Vu MD [address] [place] [address] PCP - General Family Medicine 10/23/20 Addie Senior Credit OfficerInner Diameter Grinder Tool 06/17/24 documented as of this encounter
--- OUTSIDE RECORDS SUMMARY | 2024-11-01 16:12 | XMS_ITS | Encounter Summary ---
Author Organization [employer] Address [address] [facility] 7t [place] [address] Care Team Providers Care Geomatics Professor Name Role Phone Koki Vu MD Primary Care Provider [phone] Reason for Visit * Reason Comments Med Refill Encounter Details Date Type Department Care Team ([facility] st Contact Info) Description 10/25/2023 Refill [facility] [address] [place], [place] [phone] Koki Vu MD [address] [place] [address] Social History Tobacco Use Types Packs/Day Years [...] documented as of this encounter Care Teams Geomatics Professor Relationship Specialty Start Date End Date Koki Vu MD [address] [place] [address] PCP - General Family Medicine 10/23/20 Addie Child AdvocateLand Acquisition Analyst 06/17/24 documented as of this encounter
--- OUTSIDE RECORDS SUMMARY | 2024-11-01 16:12 | XMS_ITS | Encounter Summary ---
Author Organization [employer] Address [address] [address] [facility] [address] [place] [address] Care Team Providers Care Scrum Product Owner Name Role Phone Koki Vu MD Primary Care Provider [phone] Encounter Details Date Type Department Care Team ([facility] st Contact Info) Description 09/27/2024 Telephone [facility] [address] [place], [place] [phone] Koki Vu MD [address] [place] [address] Social History Tobacco Use Types Packs/Day Years [...] encounter Miscellaneous Notes * Telephone Encounter - Koki Vu MD - 09/27/2024 2:05 PM EST Provider was called, recommended patient to followup with ENT * Telephone Encounter - Bonnie Goff - 09/27/2024 11:13 AM EST TC from Satinder flores DO with [facility] pulmonology requesting a call back from pcp to discuss further medical options. Best contact # [phone]. documented in this encounter Plan of Treatment Not on file documented as of this encounter Visit Diagnoses Not on filedocumented in this encounter Additional Health Concerns Assessment Noted Time PHQ-9 Depression Total Score: 17 023 11:11 AM EDT documented as of this encounter Care Teams Scrum Product Owner Relationship Specialty Start Date End Date Koki Vu MD [address] [place] [phone] PCP - General Family Medicine 10/23/20 Addie Senior Patient Account RepresentativeInstructor Apparel Manufacture 06/17/24 documented as of this encounter
== END 2024-11-01 15:43 | disposition home or self-care (01) ==
PROVIDERS: PCP Family Medicine; Visit Provider Physician Assistant
DX: M47.812 Spondylosis without myelopathy or radiculopathy, cervical region (principal); M50.30 Other cervical disc degeneration, unspecified cervical region
CPT/HCPCS: 99213

== ENCOUNTER → 2024-11-01 14:48 | Outpatient (BNVA) | payer MEDICAID, SELFPAY | PROVIDERS: PCP Family Medicine; Visit Provider Physician Assistant | DX: M47.812 Spondylosis without myelopathy or radiculopathy, cervical region (principal); M50.30 Other cervical disc degeneration, unspecified cervical region | CPT/HCPCS: 99212 ==

== ENCOUNTER 2024-11-29 09:48 | Outpatient (AMB) | payer MEDICAID, SELFPAY ==
[2024-11-29 09:53] VITALS: BP 113/79; PULSE 76; BMI 30.9
--- NOTE | 2024-11-29 09:53 | A.OFFVIS_ITS ---
Vital Signs 11/29/24 09:53 Height 5 ft 3 in Weight 174 lb 9.698 oz BMI 30.9 BP 113/79 Blood Pressure Location Lt brachial Position Sitting Pulse 76 Intake Visit Reasons: 4 mo f/u Intake Note: Kvng presents in the office as a 4 month follow up. CC: Patient reports constipation, abdominal bloating, nausea 2 days ago, and GERD. He also has noticed lower left sided back pain. Peer Financial Counselor Required: Yes Peer Financial Counselor Language: Manager Net Name: FRANKIE Choudhury Accompanied by: Self / Same As Patient Allergies [id number] [From [employer] Autoinjector] Allergy (Unknown, Verified 11/29/24 10:11) Rash HPI HPI 4 mo f/u: Details: 59 yr old m here for f/u RECAP: Saw [facility] initially: c/o tightness in his throat, been on protonix for GERD, well controlled anxiety regarding swallowing and fear of choking but not actually choking. he had been told he has prominent spur in the neck which maybe causing his symptoms by his neurosurgeon CT 2018--fatty liver, liver cyst, bilobed and septated Ba swallow with prominent cricopharyngeal sphincter EGD --: LA grade A esophagitis, schatzki ring, balloon dilation w tear noted, antral erosive gastritis, bulbar duodenitis reflux changes on bx he was still c/o sx at f/u with saliva choking him, tightness PCP ordered us and pos for fatty liver, LFT have been normal. he can swallow food without any issue except for one occasion 4 d felt like some sfood stuck in stomach still taking carafate and pantopRAZOLE, feels doesn't help him seeing pain management for hip I ordered cardiac eval due to SOB,this was neg RAST testing neg OTHER DATA-- MBS ---unremarkable MRI--10/2020--Fatty liver. Several liver cysts, largest a minimally complex cyst measuring 4.5 x 3.6 cm in the right lobe of the liver. 1 cm probable complex cyst in the lower pole of the left kidney. Diverticulosis of the colon. repeat MRI 04/2021--dominant cyst central right lobe with circumscribed macrolobulated margins is without significant change in size, measuring 4.6 x 3.8 x 4.5 cm on current study. Prior measurement is 4.4 x 3.7 x 4.4 cm on MR 10/28/2020 and 3.9 x 3.2 x [address] abdomen 07/18/2019, (both prior exams remeasured in same orientation). No solid component or visible septation. EGD with dilation 05/06/21 Impression/Findings: schatzki ring esophagitis gastritis duodenitis maybe due to medications i.e CCB, SSRI GES 08/2021-- nml emptying at 4 hrs He had a lot of mucous and sputum and I had given him loratadine, pepcid A rept MRI was ordered 08/26/22 with stable liver and renal cysts Ba swallow with tab 09/2022 w/o stricture, some dysmotility noted US: 01/2023-- liver cyst and small kidney cysts, fatty liver, mild raised elastography CT 02/28- liver cysts were stable, no acute path (this CT was ordered by ED) KUB: 08/31-- moderate constipation Ba swallow: Mild to moderate cricopharyngeal achalasia, Status post anterior fusion C5-C7 without gross complication. Prominent ventral C4-C5 osteophyte without mass effect. small hiatal hernia EGD 08/01 with savary dilation: small hiatal hernia noted schatzki ring INTERIM: He has issues with bloating and constipation he was commenced on ajovy and had to take antihistamines he has back pain but was shovelling in the snow appetite is good swallowing is so so he has a lot of post nasal congestion and drip, he has been taking eric nase which helps he had MRI L spine with bulging discs noted he has cat and dog at home EXAM: GENERAL: The patient is well developed and nontoxic.-obese VITAL SIGNS:see workflow HEENT: Nonicteric sclerae, PERRLA, EOMI. Oropharynx clear. Moist mucous membranes. Conjunctivae appear well perfused. No thyroid mass. CHEST: Chest wall is tender to touch HEART: Regular rate and rhythm without murmurs. LUNGS: Clear to auscultation bilaterally. ABDOMEN: Soft, positive bowel sounds, tender epigastrium, no organomegaly. SKIN: maculopapular rash on torso and back, looks like dermatitis NEUROLOGIC: Cranial nerves II-XII intact without motor/sensory deficit. 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 Venous congestion Pain in right lower leg Lipoma of scalp Kidney cysts Spondylosis of thoracic spine Spondylosis of lumbar spine Schatzki's ring Fatty liver HTN (hypertension) Pre-diabetes Dysphagia Asthma Hx of chest pain DAYNA on CPAP Hypothyroid Psoriasis Psoriatic arthritis Chronic pain Mood disorder Depression Avascular necrosis Chronic pain syndrome Spondylosis of lumbar region without myelopathy or radiculopathy Spondylosis, cervical Degeneration, intervertebral disc, cervical Surgical History History of back surgery History of surgery Status post excision of lipoma (~10/21/21) Status post cardiac catheterization Hx of cardiac cath H/O neck surgery Hx of hand surgery Hx of endoscopy History of colonoscopy Family History Father Cirrhosis Alcoholism Mother Diabetes HTN (hypertension) Parkinson disease Brother Cirrhosis Alcoholism Social History Household Members: Spouse and Children Are you a primary director of career resources to a significant other at home: No Do you presently have visiting nurse or other home services: No Alcohol intake: never Patient Tobacco Use Status: Former Tobacco user Tobacco use type: Cigarette Second Hand Smoke Exposure: No Current occupational status: disabled Current occupation: rt handed Physical Exam Vital Signs: Last Vital Signs Pulse 76 11/29/24 09:53 BP 113/79 11/29/24 09:53 BMI result Body Mass Index 30.9 Assessment & Plan Assessment & Plan (1) Allergy: Code(s): T78.40XA - Allergy, unspecified, initial encounter Category: Medical Plan see above Orders: Orders Rast Allergen Today Z91.018 - Allergy to other foods Medications: New polyethylene glycol 3350 (Miralax) 17 grams PO BID 850 grams 1RF Coding Level of Care Code Est Pt Level 3 (45018) Diagnoses Allergy T78.40XA
--- OUTSIDE RECORDS SUMMARY | 2024-11-29 10:31 | XMS_ITS | Referral Summary ---
Author Organization [facility] Address [address] [place] [address] Care Team Providers Care Reamer Hand Name Role Phone VuKoki Primary Care Provider [phone] Encounters Date Type Department Care Team Description 09/27/2024 10:50 AM EST Follow-Up [facility] [address] [place] [address] Gas Meter Repairer: Satinder Sanders, Dyspnea on exertion (Primary Dx); Moderate persistent asthma without complication 09/24/2024 Telephone [facility] [address] [place] [address] Gas Meter Repairer: Katiana Pandya MA from Last 3 Months [...] 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 Psoriatic arthritis [...] Already f w psychiatrist and therapist at [facility] ---advised to continue care and may need eval if meds can be adjusted Immunizations Immunization Administration Dates Next Due Hepatitis A Vaccine, Adult Dosage 08/14/2019 Hepatitis B adult (ENGERIX-B ADULT) vaccine 1 mL IM 08/14/2019 Influenza, Injectable, Quadr ivalent, Contains Preservative 09/06/2018,12/11/2017 Influenza, Injectable, Quadr ivalent, Preservative Free 07/31/2023,07/02/2021,08/26/2020,2018 Pneumococcal Conjugate Vacci ne, 13 Valent 06/07/2019 Pneumococcal conjugate PCV20,polysaccharide [id number] conjugate, adjuvant, PF (Prevnar 20) 02/01/2024 RSV, [...] Treatment Not on file Insurance Care Teams Reamer Hand Relationship Specialty Start Date End Date Koki Vu [address] [place] [id number] PCP - General 12/26/23
--- OUTSIDE RECORDS SUMMARY | 2024-11-29 10:31 | XMS_ITS | Clinical Summary ---
Author Organization [facility] Address [address] [place] [address] Care Team Providers Care Renewals Manager Name Role Phone Jessica Rogers MD Primary Care Provider [phone] Social History Tobacco Use Types Packs/Day Years Used Date Smoking Tobacco: Never Assessed Sex and Gender Information Value Date Recorded Sex Assigned at Not on file Legal Sex Male 2:36 PM EST Gender Identity Not on file Sexual Orientation Not on file Plan of Treatment Health Maintenance Due Date Last Done Comments DTaP,Tdap,and Td Vaccines (1 - Tdap) 1982 Pneumococcal Vaccine: 50+ Ye ars (1 of 1 - PCV) 2013 Zoster Vaccines (1 of 2) 2013 Cholesterol [...] patient's age to complete this topic Meningococcal B Vacine Aged Out No lo nger eligible based on patient's age to complete [...] age to complete this topic Care Teams Renewals Manager Relationship Specialty Start Date End Date Jessica Rogers MD [address] [place] [phone] PCP - General General Surgery 09/22/21
--- OUTSIDE RECORDS SUMMARY | 2024-11-29 10:31 | XMS_ITS | Clinical Summary ---
Author Organization [facility] Address [address] [place] [address] Care Team Providers Care Refrigeration Plant Operator Name Role Phone Vu Koki Primary Care Provider [phone] Allergies No known active allergies Medications [...] reports he needs new TSH border for science analyst referal placed in previous appointment. Psoriatic arthritis [...] Already f w psychiatrist and therapist at [facility] ---advised to continue care and may need eval if meds can be adjusted Encounters Date Type Department Care Team Description 09/27/2024 10:50 AM EST Follow-Up [facility] [address] [place] [address] Iv Technician: Satinder Sanders, DO Dyspnea on exertion (Primary Dx); Moderate persistent asthma without complication 09/24/2024 Telephone [facility] [address] [place] [address] Iv Technician: Katiana Pandya MA from Last 3 Months Immunizations Immunization Administration Dates Next Due Hepatitis A Vaccine, Adult Dosage 08/14/2019 Hepatitis B adult (ENGERIX-B ADULT) vaccine 1 mL IM 08/14/2019 Influenza, Injectable, Quadr ivalent, Contains Preservative 09/06/2018,12/11/2017 Influenza, Injectable, Quadr ivalent, Preservative Free 07/31/2023,07/02/2021,08/26/2020,2018 Pneumococcal Conjugate Vacci ne, 13 Valent 06/07/2019 Pneumococcal conjugate PCV20,polysaccharide [id number] conjugate, adjuvant, PF (Prevnar 20) 02/01/2024 RSV, [...] Zoster Vaccines Completed 06/27/2022, 04/25/2022 Pneumococcal Vaccine: 50+ Years Completed , 06/07/2019 Pneumococcal Vaccine: Pediat misti (0-5 Years) and At-Risk Patients (6-50 Years) Completed 02/01/2024, 06/07/2019 RSV Vaccine (60+ years old a nd patients) Completed 02/16/2024 Hepatitis B Vaccines Completed 04/16/2024, 02/16/2024, 08/14/2019 Influenza Vaccine Completed 06/24/2024, , 07/02/2021, [id number] Care Teams Refrigeration Plant Operator Relationship Specialty Start Date End Date Koki Vu [address] [place] [id number] PCP - General 12/26/23
--- OUTSIDE RECORDS SUMMARY | 2024-11-29 10:32 | XMS_ITS | Encounter Summary ---
Author Organization [employer] Address [address] [facility] [address] [place] [address] Care Team Providers Care Flexographic Press Helper Name Role Phone Koki Vu MD Primary Care Provider [phone] Reason for Visit * Reason Comments Med Refill Encounter Details Date Type Department Care Team ([facility] st Contact Info) Description 03/28/2024 Refill [facility] [address] [place], [place] [phone] Koki Vu MD [address] [place] [address] Social History Tobacco Use Types Packs/Day Years [...] documented as of this encounter Care Teams Flexographic Press Helper Relationship Specialty Start Date End Date Koki Vu MD [address] [place] [phone] PCP - General Family Medicine 10/23/20 Addie Hand Candy DipperGraduate Research Assistant 06/17/24 documented as of this encounter
--- OUTSIDE RECORDS SUMMARY | 2024-11-29 10:32 | XMS_ITS | Encounter Summary ---
Author Organization [employer] Address [address] [place] [address] Care Team Providers Care School Health Assistant Name Role Phone Koki Vu MD Primary Care Provider [phone] Encounter Details Date Type Department Care Team (Late st Contact Info) Description 02/05/2024 Orders Only [facility] [address] [place] [address] Provider, MD Nasima Social History Tobacco Use [...] documented as of this encounter Care Teams School Health Assistant Relationship Specialty Start Date End Date Koki Vu MD [address] [place] [phone] PCP - General Family Medicine 10/23/20 Addie Admitted AttorneysSales Representative Girls' Apparel 06/17/24 documented as of this encounter
--- OUTSIDE RECORDS SUMMARY | 2024-11-29 10:32 | XMS_ITS | Encounter Summary ---
Author Organization [employer] Address [address] [facility] [address] [place] [address] Care Team Providers Care Twister Hand Name Role Phone Koki Vu MD Primary Care Provider [phone] Encounter Details Date Type Department Care Team ([facility] st Contact Info) Description 11/22/2024 8:30 AM EST Office Visit [facility] [address] [place], [place] [phone] Tirso Mayfield MD [address] [place] [phone] Psoriatic arthritis (CMS/HCC) (Primary Dx) Social History Tobacco Use Types [...] AM EDT documented as of this encounter Last Filed Vital Signs Vital Sign Reading Time Taken Comments Blood Pressure 118/78 11/22/2024 8:48 AM EST Pulse 82 11/22/2024 8:48 AM EST Temperature 37.1 ??C (98.7 ??F) 11/22/2024 8:48 AM ES T Respiratory Rate 20 11/22/2024 8:48 AM EST Oxygen Saturation - - Inhaled Oxygen Concentration - - Weight 78 kg (172 lb) 11/22/2024 8:48 AM EST Height 157.5 cm (5' 2 ) 11/22/2024 8:48 AM EST Body Mass Index 31.46 11/22/2024 8:48 AM EST documented in this encounter Progress Notes * Tirso Jara MD - 11/22/2024 8:30 AM EST Subjective Patient ID: Kvng Elkins is a 59 y.o. male who presents for No chief complaint on file.. Hand Pain The pain is present in the left hand and right hand. The quality of the pain is described as aching. The pain is at a severity of 6/10. The pain is moderate. Pertinent negatives include no chest pain, muscle weakness, numbness or tingling. Review of Systems Cardiovascular: Negative for chest pain. Neurological: Negative for tingling and numbness. Objective Physical Exam Constitutional: Appearance: Normal appearance. Musculoskeletal: General: Swelling and tenderness present. Neurological: General: No focal deficit present. Mental Status: He is alert and oriented to person, place, and time. Psychiatric: Mood and Affect: Mood normal. Behavior: Behavior normal. Assessment/Plan Problem List Items Addressed This Visit Psoriatic arthritis (CMS/HCC) - Primary Will provide 5 days of prednisone, he is on Enbrel, follow up rheumatology documented in this encounter Plan of Treatment Not on file documented as of this encounter Visit Diagnoses Diagnosis Psoriatic arthritis (CMS/HCC)- Primary Psoriatic arthropathy documented in this encounter Additional Health Concerns Assessment Noted Time PHQ-9 Depression Total Score: 17 023 11:11 AM EDT documented as of this encounter Care Teams Twister Hand Relationship Specialty Start Date End Date Koki Vu MD [address] [place] [phone] PCP - General Family Medicine 10/23/20 Addie Investigation ClerkRoller Coaster Operator 06/17/24 documented as of this encounter
--- OUTSIDE RECORDS SUMMARY | 2024-11-29 10:32 | XMS_ITS | Encounter Summary ---
Author Organization [employer] Address [address] [facility] [address] [place] [address] Care Team Providers Care Color Consultant Name Role Phone Koki Vu MD Primary Care Provider [phone] Encounter Details Date Type Department Care Team (Late st Contact Info) Description 11/28/2024 9:40 AM EST Office Visit [facility] [address] [place] [address] [phone] Starr Escobar MD [address] [place], [place] [phone] Atopic dermatitis in adult (Primary Dx); Chronic migraine without aura without status migrainosus, not intractable Social History Tobacco Use Types Packs/Day Years [...] Sign Reading Time Taken Comments Blood Pressure 140/80 11/28/2024 9:15 AM EST Pulse 82 11/28/2024 9:15 AM EST Temperature 36.7 ??C (98 ??F) 11/28/2024 9:15 AM EST Respiratory Rate 18 11/28/2024 9:15 AM EST Oxygen Saturation - - Inhaled Oxygen Concentration - - Weight 80 kg (176 lb 6.6 oz) 11/28/2024 9:15 AM EST Height 157.5 cm (5' 2 ) 11/28/2024 9:15 AM EST Body Mass Index 32.27 11/28/2024 9:15 AM EST documented in this encounter Progress Notes * Starr Escobar MD - 11/28/2024 9:40 AM EST Images from the original note were not included. SUBJECTIVE: Kvng Elkins is a 59 y.o. year old male who presents for Walk In Center/rash . Denies recentillness, injury, or hospitalization. Acute Concerns: Patient here for evaluation of a rash on his trunk and axillary areas for the past 3 days, he thinks is related to Ajovy injection that he injects once per month for migraine prevention. He has noticed similar symptoms 3 months ago when he first used Ajovy and they started he is waist much. Rash isvery pruriginous, denies nausea, shortness of breath, facial swelling, fever chills or diarrhea. Hehas not had similar symptoms in the past, he has not started any new medication. Social History Social History Narrative Not on file Patient Active Problem List Diagnosis Acquired hypothyroidism Steatosis of liver Liver cyst Severe recurrent major depression with psychotic features (CMS/HCC) Psoriatic arthritis (CMS/HCC) Prediabetes Mild intermittent asthma Memory impairment Gastro-esophageal reflux disease with esophagitis Esophageal dysmotility Chronic low back pain Cervical radiculitis Avascular necrosis of left femoral head (CMS/HCC) Left hip pain Other sleep apnea Neurogenic claudication due to lumbar spinal stenosis Fibromyalgia Hypertension Right arm cellulitis Food insecurity Pityriasis rosea Chronic migraine without aura Atopic dermatitis in adult No family history on file. Review of Systems Constitutional: Negative for fever. HENT: Negative for congestion, ear pain, rhinorrhea and sore throat. Eyes: Negative for pain and discharge. Respiratory: Negative for cough and shortness of breath. Cardiovascular: Negative for chest pain. Gastrointestinal: Negative for abdominal pain, constipation, diarrhea and nausea. Endocrine: Negative for polydipsia. Genitourinary: Negative for dysuria and frequency. Musculoskeletal: Negative for arthralgias, back pain and neck pain. Skin: Positive for rash. Neurological: Positive for headaches. Negative for dizziness and numbness. Psychiatric/Behavioral: Negative for agitation. OBJECTIVE: Vitals: 11/28/24 0915 BP: (!) 140/80 Pulse: 82 Resp: 18 Temp: 98 ??F (36.7 ??C) Physical Exam Constitutional: Appearance: Normal appearance. HENT: Right Ear: Tympanic membrane and ear canal normal. Left Ear: Tympanic membrane and ear canal normal. Mouth/Throat: Mouth: Mucous membranes are moist. Pharynx: No oropharyngeal exudate or posterior oropharyngeal erythema. Eyes: Pupils: Pupils are equal, round, and reactive to light. Cardiovascular: Rate and Rhythm: Normal rate and regular rhythm. Heart sounds: No murmur heard. Pulmonary: Breath sounds: Normal breath sounds. No wheezing. Abdominal: General: Bowel sounds are normal. Palpations: Abdomen is soft. Tenderness: There is no abdominal tenderness. Musculoskeletal: General: No tenderness. Normal range of motion. Cervical back: Normal range of motion. No tenderness. Skin: General: Skin is warm. Findings: Rash (Dry, flaky macular patch es on waist, ext axillary line bl, mid axilary line with mild hyperpigmented bumps) present. Neurological: General: No focal deficit present. Mental Status: He is alert and oriented to person, place, and time. Psychiatric: Mood and Affect: Mood normal. Problem List Items Addressed This Visit Atopic dermatitis in adult - Primary It seems to be eczema, unclear if it is allergy related to Ajovy. Advised to use hypoallergenic laundry soap and unscented Dove for daily use. Avoid scented creams. Hold Ajovy for the next 2 months and follow-up with neurology if needed. Use triamcinolone cream 80 g mixed with CeraVe cream and apply once or twice a day on affected areas. Follow-up with PCP a call back earlier as needed if symptoms do not improve within 1 month Chronic migraine without aura He will be holding Ajovy for migraine prevention (potential side effect/rash) and follow-up with neurologist if needed next month. Follow Up: Current Outpatient Medications on File Prior to Visit Medication Sig Dispense Refill acetaminophen (Tylenol 8 Hour) 650 MG ER tablet Take 1 tablet by mouth every 8 (eight) hours. Advair Diskus 250-50 MCG/ACT aerosol powder INHALE 1 PUFF BY MOUTH TWICE DAILY. RINSE MOUTH AFTER USING. albuterol (ProAir HFA) 108 (90 Base) MCG/ACT inhaler Inhale 2 puffs every 4 (four) hours. amitriptyline (Elavil) 50 MG tablet TAKE 1 TABLET BY MOUTH AT BEDTIME 90 tablet 1 amLODIPine (Norvasc) 5 MG tablet Take 5 mg by mouth in the morning. atorvastatin (Lipitor) 80 MG tablet TAKE 1 TABLET BY MOUTH EVERY DAY AT BEDTIME 90 tablet 1 bumetanide (Bumex) 1 MG tablet Take 1 mg by mouth in the morning. busPIRone (Buspar) 15 MG tablet Take 15 mg by mouth 3 times daily. cetirizine (ZyrTEC) 10 MG tablet TAKE 1 TABLET BY MOUTH EVERY DAY NEEDED FOR RASH cholecalciferol (Vitamin D-3) 50 MCG (2000 UT) tablet TAKE 1 TABLET BY MOUTH EVERY DAY 30 tablet 11 Diclofenac Sodium 1 % gel Apply 2 g topically if needed in the morning, at noon, in the evening, and at bedtime (pain). Apply to affected areas of hands. 100 g 1 Enbrel SureClick 50 MG/ML injection EPINEPHrine (Epipen) 0.3 MG/0.3ML injection syringe Inject 0.3 mL into the shoulder, thigh, or buttocks. escitalopram (Lexapro) 20 MG tablet Take 20 mg by mouth at bedtime. famotidine (Pepcid) 40 MG tablet Take 40 mg by mouth at bedtime. fluticasone (Flonase) 50 MCG/ACT nasal spray INSTILL 1-2 SPRAYS IN EACH NOSTRIL ONCE DAILY NEEDED HM ClearLax 17 GM/SCOOP powder Mix 17g (1 capful) in 8 ounces of water and take by mouth every day ibuprofen 600 MG tablet Take 600 mg by mouth. lactulose (Chronulac) 10 GM/15ML solution Take 30 mL by mouth in the morning. levothyroxine (Synthroid, Levoxyl) 88 MCG tablet TAKE 1 TABLET BY MOUTH EVERY DAY IN THE MORNING 90tablet 5 lidocaine (Lidoderm) 5 % patch APPLY 3 PATCHES TO SKIN DAILY FOR UP TO 12 HOURS, THEN REMOVE FOR 12HOURS. 90 patch 5 loratadine (Claritin) 10 MG tablet Take 10 mg by mouth in the morning. magnesium oxide (Mag-Ox) 400 (240 Mg) MG tablet Take 400 mg by mouth Once per day. naloxone (Narcan) 4 mg/0.1 mL nasal spray FOR SUSPECTED OPIOID OVERDOSE. SPRAY 0.1mL IN ONE NOSTRIL. REPEAT IN ALTERNATE NOSTRIL 2-3 MINUTES IF NEEDED. SEEK MEDICAL ATTENTION IMMEDIATELY EVEN IF PATIENT RESPONDS. omeprazole (PriLOSEC) [address] capsule Take 40 mg by mouth in the morning. [] predniSONE (Deltasone) 20 MG tablet Take 1 tablet (20 mg) by mouth Once per day for 5 days. 5 tablet 0 pregabalin (Lyrica) 225 MG capsule TAKE 1 CAPSULE BY MOUTH TWICE DAILY 60 capsule 1 riboflavin (Vitamin B-2) 400 MG tablet Take 1 tablet by mouth Once per day. sucralfate (Carafate) 1 GM/10ML suspension Take 10 mL (1 g) by mouth every 6 (six) hours. 414 mL 3 SUMAtriptan (Imitrex) 100 MG tablet TAKE 1/2 TO 1 TABLET BY MOUTH AT ONSET OF HEADACHE, MAY REPEAT DOSE IN 2 HOURS NEEDED FOR MIGRAINE. DO NOT EXCEED 2 TABLETS PER DAY OR 4 TABLETS PER WEEK. MAY TAKE WITH tylenol. tiZANidine (Zanaflex) 4 MG tablet TAKE 1 TABLET BY MOUTH EVERY 6 TO 8 HOURS NEEDED. DO NOT EXCEED 3 DOSES IN 24 HOURS. No current facility-administered medications on file prior to visit. documented in this encounter Miscellaneous Notes * Assessment & Plan Note - Starr Escobar MD - 11/28/2024 11:56 AM EST Associated Problem(s): Atopic dermatitis in adult It seems to be eczema, unclear if it is allergy related to Ajovy. Advised to use hypoallergenic laundry soap and unscented Dove for daily use. Avoid scented creams. Hold Ajovy for the next 2 months and follow-up with neurology if needed. Use triamcinolone cream 80 g mixed with CeraVe cream and apply once or twice a day on affected areas. Follow-up with PCP a call back earlier as needed if symptoms do not improve within 1 month * Assessment & Plan Note - Starr Escobar MD - 11/28/2024 11:54 AM EST Associated Problem(s): Chronic migraine without aura He will be holding Ajovy for migraine prevention (potential side effect/rash) and follow-up with neurologist if needed next month. documented in this encounter Plan of Treatment Not on file documented as of this encounter Visit Diagnoses Diagnosis Atopic dermatitis in adult- Primary Chronic migraine without aura without status migrainosus, not intractable documented in this encounter Additional Health Concerns Assessment Noted Time PHQ-9 Depression Total Score: 17 023 11:11 AM EDT documented as of this encounter Care Teams Color Consultant Relationship Specialty Start Date End Date Koki Vu MD [address] [place] [address] PCP - General Family Medicine 10/23/20 Addie Service Crew LeaderRn Icu 06/17/24 documented as of this encounter
--- OUTSIDE RECORDS SUMMARY | 2024-11-29 10:32 | XMS_ITS | Encounter Summary ---
Author Organization [employer] Address [address] [facility] [facility] [address] [place] [address] Care Team Providers Care Adolescent Medicine Specialist Name Role Phone Koki Vu MD Primary Care Provider [phone] Encounter Details Date Type Department Care Team ([facility] st Contact Info) Description 09/27/2024 Telephone [facility] CH[facility] MED & PEDS [address] [place], [place] [phone] Koki Vu MD [address] [place] [address] Social History Tobacco Use Types Packs/Day Years [...] EST TC from [place] DO with [facility] pulmonology requesting a call back from pcp to discuss further medical options. Best contact # [phone]. documented in this encounter Plan of Treatment Not on file documented as of this encounter Visit Diagnoses Not on filedocumented in this encounter Additional Health Concerns Assessment Noted Time PHQ-9 Depression Total Score: 17 023 11:11 AM EDT documented as of this encounter Care Teams Adolescent Medicine Specialist Relationship Specialty Start Date End Date Koki Vu MD [address] [place] [phone] PCP - General Family Medicine 10/23/20 Addie Shingle CutterSupervisor Paint Department 06/17/24 documented as of this encounter
--- OUTSIDE RECORDS SUMMARY | 2024-11-29 10:32 | XMS_ITS | Encounter Summary ---
Author Organization [employer] Address [address] [facility] 7t [place] [address] Care Team Providers Care Mysql Developer Name Role Phone Koki Vu MD Primary Care Provider [phone] Reason for Visit * Reason Comments Med Refill Encounter Details Date Type Department Care Team ([facility] st Contact Info) Description 10/25/2023 Refill [facility] CHC MED & PEDS [address] [place], [place] [phone] Koki Vu MD [address] [place] [address] Social History Tobacco Use Types [...] documented as of this encounter Care Teams Mysql Developer Relationship Specialty Start Date End Date Koki Vu MD [address] [place] [address] PCP - General Family Medicine 10/23/20 Addie Captain Cannery TenderDirector Enterprise Systems 06/17/24 documented as of this encounter
--- OUTSIDE RECORDS SUMMARY | 2024-11-29 10:32 | XMS_ITS | Encounter Summary ---
Author Organization [employer] Address [address] [facility] [facility] [address] [place] [address] Care Team Providers Care Body Man Name Role Phone Koki Vu MD Primary Care Provider [phone] Encounter Details Date Type Department Care Team (Latest Contact Info) Description 11/22/2024 Travel Social History Tobacco Use Types Packs/Day Years [...] documented as of this encounter Care Teams Body Man Relationship Specialty Start Date End Date Koki Vu MD [address] [place] [address] PCP - General Family Medicine 10/23/20 Addie Tomato Pulper OperatorSand Mixer Machine 06/17/24 documented as of this encounter
--- OUTSIDE RECORDS SUMMARY | 2024-11-29 10:32 | XMS_ITS | Encounter Summary ---
Author Organization [employer] Address [address] [facility] 7t [place] [address] Care Team Providers Care Journeyman Electrician Name Role Phone Koki Vu MD Primary Care Provider [phone] Reason for Visit * Reason Comments Med Refill Encounter Details Date Type Department Care Team ([facility] st Contact Info) Description 10/25/2023 Refill [facility] CHC MED & PEDS [address] [place], [place] [phone] Koki Vu MD [address] [place] [address] Social History Tobacco Use Types Packs/Day Years [...] documented as of this encounter Care Teams Journeyman Electrician Relationship Specialty Start Date End Date Koki Vu MD [address] [place] [id number] PCP - General Family Medicine 10/23/20 Adide Electronics Technology InstructorSupervisor Mold Yard 06/17/24 documented as of this encounter
--- OUTSIDE RECORDS SUMMARY | 2024-11-29 10:32 | XMS_ITS | Encounter Summary ---
Author Organization [employer] Address [address] [facility] 7t [place] [address] Care Team Providers Care Wafer Abrading Machine Tender Name Role Phone Koki Vu MD Primary Care Provider [phone] Reason for Visit * Reason Onset Date Comments Nurse Triage 11/20/2024 Encounter Details Date Type Department Care Team ([facility] st Contact Info) Description 11/20/2024 Telephone [facility] CHC MED & PEDS [address] [place] [address] Koki Vu MD [address] [place] [address] Nurse Triage Social History Tobacco Use Types Packs/Day Years [...] encounter Miscellaneous Notes * Telephone Encounter - Carol Malik RN - 11/20/2024 1:17 PM EST Triage call with [employer] Labsyan[employer] [place] [id number], [place]. Pt reports last seen 06/24/25 in [facility] for bilateral wrist/hand pain. Since that time pain has become much worse radiating from hands to elbows now. Pt reports hands appear slightly swollen and reddended especially around the joints. Pt hands contract due to pain. Mobility is limited. Pt is taking lyrica for pain has not tried tylenol/ibuprofen . Pt is advised to try heat or ice to see if either help. Pt requests to be seen by provider. ASK apt with Dr. Jeffers 11/22/24 @ 830am. Unable to verifyinsurance due to computer error. Pt agrees with disposition. Protocol Used: Hand Pain (Adult) Protocol-Based Disposition: See in Office or Video Visit within 3 Days Video visit not offered Positive Triage Questions: * Moderate pain (e.g., interferes with normal activities) and present > 3 days * Patient wants to be seen * All higher-acuity triage questions were negative Care Advice Discussed: * Reassurance and Education - Hand Pain * Pain Medicines * Pain Medicines - Extra Notes and Warnings * Expected Course * Reasons To Call Back - Moderate pain (such as interferes with normal activities) lasts over 3 days - Mild pain lasts over 7 days - Signs of infection occur (such as spreading redness, warmth, fever) - You become worse * Use a Cold Pack for Pain * Use Heat After 48 Hours for Pain * Telephone Encounter - Adina Hastingsto - 11/20/2024 11:29 AM EST Patient came in requesting to be seen r/t bilateral wrist pain that goes up to elbow. Hands contract when pain is severe. Patient states Dr. Rogers seen him for this matter back on 06/24/25 and pain has increased severely since then and would like to be seen. documented in this encounter Plan of Treatment Not on file documented as of this encounter Visit Diagnoses Not on filedocumented in this encounter Additional Health Concerns Assessment Noted Time PHQ-9 Depression Total Score: 17 023 11:11 AM EDT documented as of this encounter Care Teams Wafer Abrading Machine Tender Relationship Specialty Start Date End Date Koki Vu MD [address] [place] [address] PCP - General Family Medicine 10/23/20 Addie Supervisor Engine RepairCrossing Guard 06/17/24 documented as of this encounter
--- OUTSIDE RECORDS SUMMARY | 2024-11-29 10:32 | XMS_ITS | Encounter Summary ---
Author Organization [employer] Address [address] [facility] [address] [address] Care Team Providers Care Router Setter Name Role Phone Koki Vu MD Primary Care Provider [phone] Reason for Referral * Consultation (Routine) - Closed Specialty Diagnoses / Procedures Referred By Contac t Referred To Contact Rheumatology Diagnoses Erosion of bone Tirso Mayfield MD [address] [place] [address] Phone: tel: fax: [facility] [address] Phone: tel: fax: Referral ID Status Reason Start Date Expiration Date V isits Requested Visits Authorized [id number] Closed Specialty Services Required 08/02/2024 08/02/2025 1 1 Encounter Details Date Type Department Care Team (Late st Contact Info) Description 08/02/2024 Orders Only [facility] CHC MED & PEDS [address] [place] [address] Tirso Mayfield MD [address] [place] [address] Erosion of bone (Primary Dx) Social History [...] AM EDT) Rheumatoid Factor <13.0 <15.0 IU/mL [facility] Blood Venous blood specimen / Unknown 08/08/2024 10:40 AM EDT 08/08/2024 1:17 PM EDT Tirso Jara MD LAB BLOOD ORDERABL ES Final Result Performing Organization Address [facility] de Phone Number [facility] [address] [place] [phone] * Cyclic Citrullinated Peptide (CCP) Antibody (IgG) (08/08/2024 10:40 AM EDT) Cyclic Citrullinated Peptide <16 UNITS [facility] Comment:Reference RangeNegat shalom: <20Weak Positive: 20-39Moderate Positive: 40-59Strong Positive: >59THIS TEST WAS PERFORMED AT:[id number] [place] [phone] RECINOS MD Blood Venous blood specimen / Unknown 08/08/2024 10:40 AM EDT 08/08/2024 1:17 PM EDT Tirso Jara MD LAB BLOOD ORDERABL ES Final Result Performing Organization Address [facility] de Phone Number [facility] [address] [place] [phone] documented in this encounter Visit Diagnoses Diagnosis Erosion of bone- Primary documented in this encounter Additional Health Concerns Assessment Noted Time PHQ-9 Depression Total Score: 17 023 11:11 AM EDT documented as of this encounter Care Teams Router Setter Relationship Specialty Start Date End Date Koki Vu MD [address] [place] [address] PCP - General Family Medicine 10/23/20 Addie Warehouse HandlerQuality Control Microbiology Supervisor 06/17/24 documented as of this encounter
--- OUTSIDE RECORDS SUMMARY | 2024-11-29 10:32 | XMS_ITS | Encounter Summary ---
Author Organization [employer] Address [address] [facility] [address] [place] [address] Care Team Providers Care Optician Name Role Phone Koki Vu MD Primary Care Provider [phone] Encounter Details Date Type Department Care Team (Late st Contact Info) Description 08/23/2023 Abstract [facility] MEDICINE [address] [place] [address] Koki Vu MD [address] [place] [address] Social History Tobacco Use Types Packs/Day Years [...] documented as of this encounter Care Teams Optician Relationship Specialty Start Date End Date Koki Vu MD [address] [place] [address] PCP - General Family Medicine 10/23/20 Addie Engineering TeacherKiln Maintenance 06/17/24 documented as of this encounter
--- OUTSIDE RECORDS SUMMARY | 2024-11-29 10:32 | XMS_ITS | Encounter Summary ---
Author Organization [employer] Address [address] [facility] 7t [place] [address] Care Team Providers Care Design Drafter Chief Name Role Phone Koki Vu MD Primary Care Provider [phone] Reason for Visit * Reason Onset Date Comments Durable Medical Equipment 02/07/2024 Encounter Details Date Type Department Care Team ([facility] st Contact Info) Description 02/07/2024 Telephone [facility] CHC MED & PEDS [address] [place] [address] Koki Vu MD [address] [place] [address] Durable Medical Equipment Social History Tobacco Use [...] documented as of this encounter Care Teams Design Drafter Chief Relationship Specialty Start Date End Date Koki Vu MD [address] [place] [address] PCP - General Family Medicine 10/23/20 Addie Organizational ConsultantGreens Tier 06/17/24 documented as of this encounter
--- OUTSIDE RECORDS SUMMARY | 2024-11-29 10:32 | XMS_ITS | Clinical Summary ---
Author Organization [employer] Address [address] [facility] 7t [place] [address] Care Team Providers Care Solder Making Supervisor Name Role Phone Koki Vu MD Primary Care Provider [phone] Allergies No known active allergies Medications lactulose [...] DAILY 60 capsule 1 09/19/20 24 Active triamcinolone (Kenalog) 0.1 % cream Mix with cerave cream and apply 1x/d 80 g 2 11/28/19 25 Active predniSONE (Deltasone) 20 MG tablet Take 1 tablet (20 mg) by mouth Once per day for 5 days. 5 tablet 11/22/19 25 025 Active Problems Problem Noted Date Diagnosed Date Chronic migraine without aura 11/28/2024 Assessment & Plan (11/28/2024 11:54 AM EST): He will be holding Ajovy for migraine prevention (potential side effect/rash) and follow-up with neurologist if needed next month. 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 Assessment & [...] (07/04/2023 4:16 PM EDT): PHQ9: 17,denies SI Already f w psychiatrist and therapist at [facility] ---advised to continue care and may need eval if meds can be adjusted Chronic low back pain 12/11/2017 Assessment & Plan (06/13/2023 1:43 PM EDT): Not responsive to opiate medications. At this point will send a trial of Lyrica. Will need to proceed with PA for this. Encounters Date Type Department Care Team Description 11/28/2024 9:40 AM EST Office [facility] [address] [place] [address] Starr Escobar MD Atopic dermatitis in adult (Primary Dx); Chronic migraine without aura without status migrainosus, not intractable 11/22/2024 8:30 AM EST Office Visit [facility] [address] [place] [address] Tirso Mayfield MD Psoriatic arthritis ([facility]) (Primary Dx) 11/22/2024 Travel 11/20/2024 Telephone [facility] [address] [place] [address] Koki Vu MD Nurse Triage 10/21/2024 Orders Only [facility] External Provider, [facility] 09/27/2024 Telephone [facility] [address] [place] [address] Koki Vu MD 09/19/2024 Refill [facility] [address] [place] [address] Koki Vu MD from Last 3 Months Immunizations Name Administration [...] 18 11/28/2024 9:15 AM EST Oxygen Saturation 99% 07/26/2024 9:01 AM EDT Inhaled Oxygen Concentration - - Weight 80 kg (176 lb 6.6 oz) 11/28/2024 9:15 AM EST Height 157.5 cm (5' 2 ) 11/28/2024 9:15 AM EST Body Mass Index 32.27 11/28/2024 9:15 AM EST Plan of Treatment Health Maintenance Due Date [...] history exists Depression Screening 07/04/2024 07/04/2023, 07/04/20 23 SDOH Screening 02/20/2025 02/21/2024 Tobacco Screening 07/26/2025 07/26/2024 FIT DNA/Cologuard 08/10/2026 08/10/2023 Lipid Panel 04/15/2027 04/15/2022, 04/20/2021 Colonoscopy 04/17/2028 04/17/2018 Colorectal Cancer Screening 04/17/2028 DTaP/Tdap/Td Vaccines (2 - Td or Tdap) 07/10/2029 07/10/2019 Zoster Vaccines Completed 06/27/2022, 04/25/2022 Pneumococcal Vaccine: 50+ Years Completed 02/01/2024, 06/07/2019 RSV Patients and Patients [...] WO CONTRAST Routine 10/21/2024 9:55 AM EST HEPATITIS PANEL, GENERAL Routine 08/13/2024 11:49 AM EST LAB COLOGUARD?? COLON CANCER SCREEN Routine 08/10/2023 [...] Narrative 10/22/2024 3:45 PM EST ? [facility] ?[address] ?[place] [address] ? Magnetic Resonance Report ? Signed ? Patient: Kvng Ramon ?MR#: [id number] ?? [id number] ? : 1965 ?Acct:[id number] ? Age/Sex: 59 / M ?ADM Date: 10/21/24 ? Loc: HO.MRI ? Attending Dr: Winston Boykin MD ? Ordering Physician: Winston Boykin MD ?? Date of Service: 10/21/24 ?? Procedure(s): MR lumbar spine wo con ?? Accession Number(s): [id number] ? cc: Winston Boykin MD; Koki Vu [...] DD/ 0955 ? TD/TT: 10/21/24 1020 ? Front End Alignment Specialist: ? Procedure Note Skylar, Image - 10/22/[address] [address] Magnetic Resonance Report Signed Patient: Kvng Ramon EMR#: [id number] : 1965Acct:[id number] Age/Sex: 59 / MADM Date: 10/21/24 Loc: HO.MRI Attending Dr: Winston Boykin MD Ordering Physician: Winston Boykin MD Date of Service: 10/21/24 Procedure(s): MR lumbar spine wo con Accession Number(s): [id number] cc: Winston Boykin MD; Koki Vu MD [...] Jakob Sibley MD 10/22/2024 03:42 PM EST RP Dictated By: Jakob Lee MD Signed By: <Electronically signed by Jakob Mcfadden MDin OV> 10/22/24 1542 DD/ 0955 TD/TT: 10/21/24 1020 Front End Alignment Specialist: [facility] External Provider IMG MRI PROCEDURES Final Result * Hepatitis Panel, General (08/13/2024 11:49 AM EST) Hepatitis A IgM Nonreactive Nonreactive [facility] Comment:IgM antibodies to TORREZ V not detected; does not exclude earlyacute or recovered HAV infection. ~Hepatitis B Surface Antibody NONREACTIVE Nonreactive [facility] Comment:Nonreactive: < 8.00 mIU/mL Hepatitis B Core Antibody Nonreactive Nonreactive [facility] Hepatitis C Antibody Nonreactive Nonreactive [facility] Comment:Antibodies to HCV no t detected; does not exclude early acuteHCV infection. Hepatitis B Surface Ag Negative Negative [facility] 08/13/2024 11:4 9 AM EST 08/13/2024 11:49 AM EST Generic External Data Provider LAB BLOOD ORDERAB LES Final Result [facility] [address] [place] [phone] * Cologuard?? colon cancer screening (08/10/2023 3:59 PM EDT) Cologuard Result Negative Negative 08/17/20 9:57 AM EST [facility] (CLIA #:[id number]) Comment: NEGATIVE TEST RESULT. A negative Cologuard [...] screened with both Cologuard and colonoscopy. (Harris Sotelo. et al, N Engl J Med 2014;370(14):1286- 1297) The normal value (reference range) for this assay is negative. COLOGUARD RE-SCREENING RECOMMENDATION: Periodic colorectal cancer screening is an important part of preventive healthcare for asymptomatic individuals at average risk for colorectal cancer. ??Following a negative Cologuard result, the [place] Cancer Society and U.S. Multi-Society Task Force screening guidelines recommend a Cologuard re-screening interval of 3 years. References: [place] [employer] Guideline for Colorectal Cancer Screening: https://www.cancer.org/cancer/swuio-gahedb-upepov/urgaccbpq-bdjjcxflr-qjxaeki/ac s-rec ommendations.html.; Delroy MULLIGAN, Rere OTERO, Guy RochaK, Colorectal Cancer Screening: Recommendations for Physicians and Patients from the U.S. Multi-Society Task Force on Colorectal Cancer Screening , Am J Gastroenterology 2017; 112:6254-7490. TEST DESCRIPTION: Composite algorithmic analysis of stool [...] Cordero et al, N Engl J Med 2014;370(14):6039-8633.) Cologuard may produce a false negative or false positive result (no colorectal cancer or precancerous polyp present at colonoscopy follow up). A negative Cologuard test result does not guarantee the absence of CRC or advanced adenoma (pre-cancer). The current Cologuard screening interval is every 3 years. ([place] Cancer Society and U.S. Multi-Society Task Force). Cologuard performance data in a 10,000 patient pivotal study using colonoscopy as the reference method can be accessed at the following location: www.VPIsystems/results. Additional description of the Cologuard test process, warnings and precautions can be found at www.Bravoaviard.TapTrack. Stool specimen (specimen) 08/10/2023 3:59 PM EDT 08/11/2023 6:19 PM EDT us Koki Vu MD LAB MOLECULAR DIAGNOSTICS ORD ERABLES Final Result [facility] (CLIA #:[id number]) [place] [address], * Hemoglobin A1c (05/15/2023 12:13 PM EDT) Hemoglobin A1c 5.7 % [facility] Comment:Hemoglobin A1C Refer ence Range Adults: 4.8 - 6.0 % Non diabetic: < 6.0 % Goal: < 7.0 %Additional Action Suggested: > 8.0 %Note: Hemoglobin A1c results are invalid for patients with abnormal amounts of HbF. Blood transfusions may impact the HbA1c concentration in the patient sample. Estimated Average Glucose 117 mg/dL [facility] Comment:eAG = Estimated ave rage glucose which is %A1C expressed asaverage glucose, using the formula of the I5P-ConfemdFjdjezd Glucose study (ADAG), Diabetes Care, Vol.31,#8,May. 2007 Blood Venous blood specimen / Unknown 05/15/2023 12:13 PM EDT 05/15/2023 2:16 PM EDT us Koki Vu MD LAB BLOOD ORDERABLES Final Re sult [facility] [address] [place], [place] [phone] * (ABNORMAL) LIPID PANEL, STANDARD (04/15/2022 [...] ?? LDL-C is now calculated using the Fadi ?? calculation, which is a validated novel method providing ?? better accuracy than the Friedewald equation in the ?? estimation of LDL-C. ?? Mo JAY et al. RADHA. 2013;310(19): 5907-4287 ?? (http://education.Brainiac TV.TapTrack/faq/FHB853) Non-HDL Cholesterol 151(H) <130 mg/dL (calc) [facility] Comment: For patients with diabetes plus 1 major ASCVD risk ?? factor, treating to a non-HDL-C goal of <100 mg/dL ?? (LDL-C of <70 mg/dL) is considered a therapeutic ?? option. Triglycerides 109 <150 mg/dL [facility] 04/15/2022 9:27 AM EDT us Koki Vu MD LAB BLOOD ORDERABLES Final Re sult [facility] [address] * Hm Colonoscopy (04/17/2018 6:07 AM EDT) us Historical Provider HEALTH MAINTENANCE Final Result from Last 3 Months or Most Recently Relevant to Health Maintenance Insurance C3 Care Teams Solder Making Supervisor Relationship Specialty Start Date End Date Koki Vu MD [address] [place] [address] PCP - General Family Medicine 10/23/20 Addie Athletic CoachSaturator Tender 06/17/24
--- OUTSIDE RECORDS SUMMARY | 2024-11-29 10:32 | XMS_ITS | Clinical Summary ---
Author Organization [facility] Address [address] [place] [address] Care Team Providers Care Float Phlebotomist Name Role Phone Unavailable Primary Care Provider [...] to complete this topic , [address] [place] [address]
== END 2024-11-29 10:43 | disposition home or self-care (01) ==
PROVIDERS: PCP Family Medicine; Visit Provider Internal Medicine Gastroenterology
DX: T78.40XA Allergy, unspecified, initial encounter (principal)
CPT/HCPCS: 99213

== ENCOUNTER → 2024-11-29 09:48 | Outpatient (BNVA) | payer MEDICAID, SELFPAY | PROVIDERS: PCP Family Medicine; Visit Provider Internal Medicine Gastroenterology | DX: T78.40XD Allergy, unspecified, subsequent encounter (principal) | CPT/HCPCS: 99212 ==

== ENCOUNTER 2024-11-29 11:45 | Outpatient (REF) | payer MEDICAID, SELFPAY ==
--- OUTSIDE RECORDS SUMMARY | 2024-11-29 12:48 | XMS_ITS | Clinical Summary ---
Author Organization [facility] ity Address [address] [place] [address] Care Team Providers Care Dairy Frozen Manager Name Role Phone Jessica Rogers MD Primary Care Provider Social History Tobacco Use Types Packs/Day Years [...] age to complete this topic Care Teams Dairy Frozen Manager Relationship Specialty Start Date End Date Jessica Rogers MD [address] [place] [address] [phone] PCP - General General Surgery 09/22/21
--- OUTSIDE RECORDS SUMMARY | 2024-11-29 12:48 | XMS_ITS | Clinical Summary ---
Author Organization [facility] Address [address] [place] [address] Care Team Providers Care Weaver Tire Cord Name Role Phone Vu Koki Primary Care Provider [phone] Allergies No known active allergies Medications [...] home. 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 Psoriatic arthritis [...] Already f w psychiatrist and therapist at [facility] ---advised to continue care and may need eval if meds can be adjusted Encounters Date Type Department Care Team Description 09/27/2024 10:50 AM EST Follow-Up [facility] [address] [place] [address] Volleyball Referee: Satinder Sanders, DO Dyspnea on exertion (Primary Dx); Moderate persistent asthma without complication 09/24/2024 Telephone [facility] [address] [place] [address] Volleyball Referee: Katiana Pandya MA from Last 3 Months Immunizations Immunization Administration Dates Next Due Hepatitis A Vaccine, Adult Dosage 08/14/2019 Hepatitis B adult (ENGERIX-B ADULT) vaccine 1 mL IM 08/14/2019 Influenza, Injectable, Quadr ivalent, Contains Preservative 09/06/2018,12/11/2017 Influenza, Injectable, Quadr ivalent, Preservative Free 07/31/2023,07/02/2021,08/26/2020,2018 Pneumococcal Conjugate Vacci ne, 13 Valent 06/07/2019 Pneumococcal conjugate PCV20,polysaccharide [id number] conjugate, adjuvant, PF (Prevnar 20) 02/01/2024 RSV, [...] 06/24/2024, , 07/02/2021, [place] [id number] Care Teams Weaver Tire Cord Relationship Specialty Start Date End Date Koki Vu [address] [place] [phone] PCP - General 12/26/23
--- OUTSIDE RECORDS SUMMARY | 2024-11-29 12:48 | XMS_ITS | Referral Summary ---
Author Organization [facility] Address [address] [place] [address] Care Team Providers Care Laborer Brooder Farm Name Role Phone VuKoki Primary Care Provider [phone] Encounters Date Type Department Care Team Description 09/27/2024 10:50 AM EST Follow-Up [facility] [address] [place] [address] Architectural Job Captain: Satinder Sanders, Dyspnea on exertion (Primary Dx); Moderate persistent asthma without complication 09/24/2024 Telephone [facility] [address] [place] [address] Architectural Job Captain: Katiana Pandya MA from Last 3 Months [...] reports he needs new TSH border for dehydrogenation converter helper referal placed in previous appointment. Psoriatic arthritis [...] Already f w psychiatrist and therapist at [facility] ---advised to continue care and may need eval if meds can be adjusted Immunizations Immunization Administration Dates Next Due Hepatitis A Vaccine, Adult Dosage 08/14/2019 Hepatitis B adult (ENGERIX-B ADULT) vaccine 1 mL IM 08/14/2019 Influenza, Injectable, Quadr ivalent, Contains Preservative 09/06/2018,12/11/2017 Influenza, Injectable, Quadr ivalent, Preservative Free 07/31/2023,07/02/2021,08/26/2020,2018 Pneumococcal Conjugate Vacci ne, 13 Valent 06/07/2019 Pneumococcal conjugate PCV20,polysaccharide [id number] conjugate, adjuvant, PF (Prevnar 20) 02/01/2024 RSV, [...] Treatment Not on file Insurance Care Teams Laborer Brooder Farm Relationship Specialty Start Date End Date Koki Vu [address] [place] [id number] PCP - General 12/26/23
--- OUTSIDE RECORDS SUMMARY | 2024-11-29 12:49 | XMS_ITS | Clinical Summary ---
Author Organization [facility] Address [address] [place] [address] Care Team Providers Care Respiratory Practitioner Name Role Phone Unavailable Primary Care Provider [...] to complete this topic , [address] [place] [address]
--- OUTSIDE RECORDS SUMMARY | 2024-11-29 12:49 | XMS_ITS | Encounter Summary ---
Author Organization [employer] Address [address] [facility] 7t [place] [address] Care Team Providers Care Software Designer Name Role Phone Koki Vu MD Primary Care Provider [phone] Encounter Details Date Type Department Care Team ([facility] st Contact Info) Description 11/22/2024 8:30 AM EST Office Visit [facility] [address] [place], [place] [phone] Tirso Mayfield MD [address] [place] [address] Psoriatic arthritis (CMS/HCC) (Primary Dx) Social History [...] documented as of this encounter Care Teams Software Designer Relationship Specialty Start Date End Date Koki Vu MD [address] [place] [address] PCP - General Family Medicine 10/23/20 Addie Senior PastorCustomer Operations Representative 06/17/24 documented as of this encounter
--- OUTSIDE RECORDS SUMMARY | 2024-11-29 12:49 | XMS_ITS | Encounter Summary ---
Author Organization [employer] Address [address] [facility] [address] [place] [address] Care Team Providers Care Director Technical Name Role Phone Koki Vu MD Primary Care Provider [phone] Encounter Details Date Type Department Care Team ([facility] st Contact Info) Description 09/27/2024 Telephone [facility] [address] [place], [place] [phone] Koki Vu MD [address] [place] [address] Social History Tobacco Use Types Packs/Day Years [...] EST TC from Satinder flores DO with [facility] pulmonology requesting a call back from pcp to discuss further medical options. Best contact # [phone]. documented in this encounter Plan of Treatment Not on file documented as of this encounter Visit Diagnoses Not on filedocumented in this encounter Additional Health Concerns Assessment Noted Time PHQ-9 Depression Total Score: 17 023 11:11 AM EDT documented as of this encounter Care Teams Director Technical Relationship Specialty Start Date End Date Koki Vu MD [address] [place] [address] PCP - General Family Medicine 10/23/20 Addie Centrifugal Station OperatorIt Application Administrator 06/17/24 documented as of this encounter
--- OUTSIDE RECORDS SUMMARY | 2024-11-29 12:49 | XMS_ITS | Encounter Summary ---
Author Organization [employer] Address [address] [facility] 7t [place] [address] Care Team Providers Care Skating Rink Manager Name Role Phone Koki Vu MD Primary Care Provider [phone] Reason for Visit * Reason Comments Med Refill Encounter Details Date Type Department Care Team ([facility] st Contact Info) Description 10/25/2023 Refill [facility] [address] [place], [place] [phone] Koki Vu MD [address] [place] [address] Social History Tobacco Use Types Packs/Day Years [...] documented as of this encounter Care Teams Skating Rink Manager Relationship Specialty Start Date End Date Koki Vu MD [address] [place] [address] PCP - General Family Medicine 10/23/20 Addie Ship Design TeacherElectric Spot Welder 06/17/24 documented as of this encounter
--- OUTSIDE RECORDS SUMMARY | 2024-11-29 12:49 | XMS_ITS | Encounter Summary ---
Author Organization [employer] Address [address] [facility] 7t [place] [address] Care Team Providers Care Skeiner Name Role Phone Koki Vu MD Primary Care Provider [phone] Reason for Visit * Reason Comments Med Refill Encounter Details Date Type Department Care Team ([facility] st Contact Info) Description 10/25/2023 Refill [facility] [address] [place], [place] [phone] Koki Vu MD [address] [place] [address] Social History Tobacco Use Types Packs/Day Years [...] documented as of this encounter Care Teams Skeiner Relationship Specialty Start Date End Date Koki Vu MD [address] [place] [address] PCP - General Family Medicine 10/23/20 Addie Excellence CoachRadiology Scheduler 06/17/24 documented as of this encounter
--- OUTSIDE RECORDS SUMMARY | 2024-11-29 12:49 | XMS_ITS | Encounter Summary ---
Author Organization [employer] Address [address] [facility] [address] 7[address] [place] [address] Care Team Providers Care Ditch Cleaner Name Role Phone Koki Vu MD Primary Care Provider [phone] Encounter Details Date Type Department Care Team (Late st Contact Info) Description 02/05/2024 Orders Only [facility] [address] [place] [address] Provider, MD Nasima Social History Tobacco Use [...] documented as of this encounter Care Teams Ditch Cleaner Relationship Specialty Start Date End Date Koki Vu MD [address] [place] [address] PCP - General Family Medicine 10/23/20 Addie Feed Project EngineerBuckle Stringer 06/17/24 documented as of this encounter
--- OUTSIDE RECORDS SUMMARY | 2024-11-29 12:49 | XMS_ITS | Encounter Summary ---
Author Organization [employer] Address [address] [facility] 7t [place] [address] Care Team Providers Care Education And Training Coordinator Name Role Phone Koki Vu MD Primary Care Provider [phone] Reason for Visit * Reason Onset Date Comments Durable Medical Equipment 02/07/2024 Encounter Details Date Type Department Care Team ([facility] st Contact Info) Description 02/07/2024 Telephone [facility] [address] [place] [address] Koki Vu MD [address] [place] [address] Durable Medical Equipment Social History Tobacco Use [...] documented as of this encounter Care Teams Education And Training Coordinator Relationship Specialty Start Date End Date Koki Vu MD [address] [place] [address] PCP - General Family Medicine 10/23/20 Addie Shot Core Drill OperatorWell Logging Captain Mud Analysis 06/17/24 documented as of this encounter
--- OUTSIDE RECORDS SUMMARY | 2024-11-29 12:49 | XMS_ITS | Encounter Summary ---
Author Organization [employer] Address [address] [facility] [address] 7[address] [place] [address] Care Team Providers Care Card Mounter Name Role Phone Koki Vu MD Primary Care Provider [phone] Encounter Details Date Type Department Care Team (Late st Contact Info) Description 11/28/2024 9:40 AM EST Office Visit [facility] [address] [place] [phone] Starr Escobar MD [address] [place], [place] [phone] Atopic dermatitis in adult (Primary Dx); Chronic [...] month * Assessment & Plan Note - tSarr Escobar MD - 11/28/2024 11:54 AM EST [...] documented as of this encounter Care Teams Card Mounter Relationship Specialty Start Date End Date Koki Vu MD [address] [place] [address] PCP - General Family Medicine 10/23/20 Addie Wildlife PhotographerShip'S Captain 06/17/24 documented as of this encounter
--- OUTSIDE RECORDS SUMMARY | 2024-11-29 12:49 | XMS_ITS | Encounter Summary ---
Author Organization [employer] Address [address] [facility] 7t [place] [address] Care Team Providers Care Commercial Real Estate Manager Name Role Phone Koki Vu MD Primary Care Provider [phone] Reason for Visit * Reason Onset Date Comments Nurse Triage 11/20/2024 Encounter Details Date Type Department Care Team ([facility] st Contact Info) Description 11/20/2024 Telephone [facility] [address] [place] [address] Koki Vu MD [address] [place] [address] Nurse Triage Social History Tobacco Use Types [...] 11/20/2024 1:17 PM EST Triage call with Group[place]entyan[place] [id number], Dinah. Pt reports last seen 06/24/25 in [facility] for bilateral wrist/hand pain. Since that time [...] documented as of this encounter Care Teams Commercial Real Estate Manager Relationship Specialty Start Date End Date Koki Vu MD [address] [place] [address] PCP - General Family Medicine 10/23/20 Addie Order Fulfillment SpecialistLaw Writer 06/17/24 documented as of this encounter
--- OUTSIDE RECORDS SUMMARY | 2024-11-29 12:49 | XMS_ITS | Encounter Summary ---
Author Organization [employer] Address 75 [facility] [address], [place] [address] Care Team Providers Care Demolition Hammer Operator Name Role Phone Koki Vu MD Primary Care Provider [phone] Reason for Referral * Consultation (Routine) - Closed Specialty Diagnoses / Procedures Referred By Contac t Referred To Contact Rheumatology Diagnoses Erosion of bone Tirso Mayfield MD [address] [place] [address] Phone: tel: fax: [facility] [address] Phone: tel: fax: Referral ID Status Reason Start Date Expiration Date V isits Requested Visits Authorized [id number] Closed Specialty Services Required 08/02/2024 08/02/2025 1 1 Encounter Details Date Type Department Care Team (Late st Contact Info) Description 08/02/2024 Orders Only [facility] PEDS [address] [place] [address] Tirso Mayfield MD [address] [place] [address] Erosion of bone (Primary Dx) Social History [...] AM EDT) Rheumatoid Factor <13.0 <15.0 IU/mL [facility] Blood Venous blood specimen / Unknown 08/08/2024 10:40 AM EDT 08/08/2024 1:17 PM EDT Tirso Jara MD LAB BLOOD ORDERABL ES Final Result Performing Organization Address [facility] de Phone Number [facility] [address] [place] [phone] * Cyclic Citrullinated Peptide (CCP) Antibody (IgG) (08/08/2024 10:40 AM EDT) Cyclic Citrullinated Peptide <16 UNITS [facility] Comment:Reference RangeNegat shalom: <20Weak Positive: 20-39Moderate Positive: 40-59Strong Positive: >59THIS TEST WAS PERFORMED AT:[facility] [place] [phone] RECINOS MD Blood Venous blood specimen / Unknown 08/08/2024 10:40 AM EDT 08/08/2024 1:17 PM EDT Tirso Jara MD LAB BLOOD ORDERABL ES Final Result Performing Organization Address [facility] de Phone Number [facility] [address] [place] [phone] documented in this encounter Visit Diagnoses Diagnosis Erosion of bone- Primary documented in this encounter Additional Health Concerns Assessment Noted Time PHQ-9 Depression Total Score: 17 023 11:11 AM EDT documented as of this encounter Care Teams Demolition Hammer Operator Relationship Specialty Start Date End Date Koki Vu MD [address] [place] [address] PCP - General Family Medicine 10/23/20 Addie Farm Management ProfessorSpin Tank Tender 06/17/24 documented as of this encounter
--- OUTSIDE RECORDS SUMMARY | 2024-11-29 12:49 | XMS_ITS | Encounter Summary ---
Author Organization [employer] Address [address] [facility] [address] 7t [place] [address] Care Team Providers Care Yacht Hand Name Role Phone Koki Vu MD Primary Care Provider [phone] Encounter Details Date Type Department Care Team [...] documented as of this encounter Care Teams Yacht Hand Relationship Specialty Start Date End Date Koki Vu MD [address] [place] [address] PCP - General Family Medicine 10/23/20 Addie Cold Molding Press OperatorDispensing Operator 06/17/24 documented as of this encounter
--- OUTSIDE RECORDS SUMMARY | 2024-11-29 12:49 | XMS_ITS | Encounter Summary ---
Author Organization [employer] Address 75 [facility] 7t [place] [address] Care Team Providers Care Printed Circuit Boards Stripper Etcher Name Role Phone Koki Vu MD Primary Care Provider [phone] Reason for Visit * Reason Comments Med Refill Encounter Details Date Type Department Care Team ([facility] st Contact Info) Description 03/28/2024 Refill [facility] MED & PEDS [address] [place], [place] [phone] Koki Vu MD [address] [place] [address] Social History Tobacco Use Types Packs/Day Years [...] documented as of this encounter Care Teams Printed Circuit Boards Stripper Etcher Relationship Specialty Start Date End Date Koki Vu MD [address] [place] [address] PCP - General Family Medicine 10/23/20 Addie Bonsai CulturistSimplex Printer Installer 06/17/24 documented as of this encounter
--- OUTSIDE RECORDS SUMMARY | 2024-11-29 12:49 | XMS_ITS | Clinical Summary ---
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 Assessment & [...] f w psychiatrist and therapist at [facility] ---advised to continue care and may need eval if meds can be adjusted Chronic low back pain 12/11/2017 Assessment & Plan (06/13/2023 1:43 PM EDT): Not responsive to opiate medications. At this point will send a trial of Lyrica. Will need to proceed with PA for this. Encounters Date Type Department Care Team Description 11/28/2024 9:40 AM EST Office Visit [facility] [address] [place] [phone] Starr Escobar MD Atopic dermatitis in adult (Primary Dx); Chronic migraine without aura without status migrainosus, not intractable 11/22/2024 8:30 AM EST Office Visit [facility] [address] [place] [address] Tirso Mayfield MD Psoriatic arthritis ([facility]) (Primary Dx) 11/22/2024 Travel 11/20/2024 Telephone [facility] MED [facility] PEDS [address] [place] [address] Koki Vu MD Nurse Triage 10/21/2024 Orders Only [facility] External Provider, [facility] 09/27/2024 Telephone [facility] MED [facility] PEDS [address] [place] [address] Koki Vu MD 09/19/2024 Refill [facility] [address] [place] [address] Koki Vu MD from Last 3 Months [...] EST Narrative 10/22/2024 3:45 PM EST ? [facility] ?[address] ?[place] [address] ? Magnetic Resonance Report ? Signed ? Patient: Kvng Ramon ?MR#: [id number] ?? [id number] ? : 1965 ?Acct:[id number] ? Age/Sex: 59 / M ?ADM Date: 10/21/24 ? Loc: HO.MRI ? Attending Dr: Winston Boykin MD ? Ordering Physician: Winston Boykin MD ?? Date of Service: 10/21/24 ?? Procedure(s): MR lumbar spine wo con ?? Accession Number(s): [id number] ? cc: Winston Boykin MD; Koki Vu [...] DD/ 0955 ? TD/TT: 10/21/24 1020 ? Supervisor Lump Room: ? Procedure Note Skylar, Image - 10/22/[address] [address] Magnetic Resonance Report Signed Patient: Kvng Ramon EMR#: [id number] : 1965Acct:[id number] Age/Sex: 59 / MADM Date: 10/21/24 Loc: HO.MRI Attending Dr: Winston Boykin MD Ordering Physician: Winston Boykin MD Date of Service: 10/21/24 Procedure(s): MR lumbar spine wo con Accession Number(s): [id number] cc: Winston Boykin MD; Koki Vu MD [...] 10/22/24 1542 DD/ 0955 TD/TT: 10/21/24 1020 Supervisor Lump Room: [facility] External Provider IMG MRI PROCEDURES Final Result * Hepatitis Panel, General (08/13/2024 11:49 AM EST) Hepatitis A IgM Nonreactive Nonreactive [facility] Comment:IgM antibodies to TORREZ V not detected; does not exclude earlyacute or recovered HAV infection. ~Hepatitis B Surface Antibody NONREACTIVE Nonreactive [facility] Comment:Nonreactive: < 8.00 mIU/mL Hepatitis B Core Antibody Nonreactive Nonreactive [facility] Hepatitis C Antibody Nonreactive Nonreactive [facility] Comment:Antibodies to HCV no t detected; does not exclude early acuteHCV infection. Hepatitis B Surface Ag Negative Negative [facility] 08/13/2024 11:4 9 AM EST 08/13/2024 11:49 AM EST Generic External Data Provider LAB BLOOD ORDERAB LES Final Result [facility] [address] [place] [phone] * Cologuard?? colon cancer screening (08/10/2023 3:59 PM EDT) Cologuard Result Negative Negative 08/17/20 9:57 AM EST [facility] (CLIA #:[id number]) Comment: NEGATIVE TEST RESULT. A negative Cologuard [...] cancer. ??Following a negative Cologuard result, the [place] Cancer Society and U.S. Multi-Society Task Force screening guidelines recommend a Cologuard re-screening interval of 3 years. References: [place] [employer] Guideline for Colorectal Cancer Screening: https://www.cancer.org/cancer/buafj-eckqkn-dfpdqw/njqoiydpf-pghacphnp-zhpkdkz/ac s-rec ommendations.html.; Delroy MULLIGAN, Rere OTERO, Guy RochaK, Colorectal Cancer Screening: Recommendations for Physicians and Patients from the U.S. Multi-Society Task Force on Colorectal Cancer Screening , Am J Gastroenterology 2017; 112:0094-3055. TEST DESCRIPTION: Composite algorithmic analysis of stool [...] Cordero et al, N Engl J Med 2014;370(14):1393-9721.) Cologuard may produce a false negative or false positive result (no colorectal cancer or precancerous polyp present at colonoscopy follow up). A negative Cologuard test result does not guarantee the absence of CRC or advanced adenoma (pre-cancer). The current Cologuard screening interval is every 3 years. ([place] Cancer Society and U.S. Multi-Society Task Force). Cologuard performance data in a 10,000 patient pivotal study using colonoscopy as the reference method can be accessed at the following location: www.Confovis/results. Additional description of the Cologuard test process, warnings and precautions can be found at www.Intenserd.[facility]. Stool specimen (specimen) 08/10/2023 3:59 PM EDT 08/11/2023 6:19 PM EDT us Koki Vu MD LAB MOLECULAR DIAGNOSTICS ORD ERABLES Final Result [facility] (CLIA #:[id number]) [address] [place] [address], * Hemoglobin A1c (05/15/2023 12:13 PM EDT) Hemoglobin A1c 5.7 % [facility] Comment:Hemoglobin A1C Refer ence Range Adults: 4.8 - 6.0 % Non diabetic: < 6.0 % Goal: < 7.0 %Additional Action Suggested: > 8.0 %Note: Hemoglobin A1c results are invalid for patients with abnormal amounts of HbF. Blood transfusions may impact the HbA1c concentration in the patient sample. Estimated Average Glucose 117 mg/dL [facility] Comment:eAG = Estimated ave rage glucose which is %A1C expressed asaverage glucose, using the formula of the T6H-ZhwjsxtMwqjqek Glucose study (ADAG), Diabetes Care, Vol.31,#8,May. 2007 Blood Venous blood specimen / Unknown 05/15/2023 12:13 PM EDT 05/15/2023 2:16 PM EDT us Koki Vu MD LAB BLOOD ORDERABLES Final Re sult [facility] [address] [place], [place] [phone] * (ABNORMAL) LIPID PANEL, STANDARD (04/15/2022 [...] ?? Mo JAY et al. RADHA. 2013;310(19): 6445-7785 ?? (http://education.Sympler.[facility]/faq/FCQ994) Non-HDL Cholesterol 151(H) <130 mg/dL (calc) [facility] Comment: For patients with diabetes plus 1 major ASCVD risk ?? factor, treating to a non-HDL-C goal of <100 mg/dL ?? (LDL-C of <70 mg/dL) is considered a therapeutic ?? option. Triglycerides 109 <150 mg/dL [facility] 04/15/2022 9:27 AM EDT us Koki Vu MD LAB BLOOD ORDERABLES Final Re sult [facility] [address] * Hm Colonoscopy (04/17/2018 6:07 AM EDT) us Historical Provider HEALTH MAINTENANCE Final Result from Last 3 Months or Most Recently Relevant to Health Maintenance Insurance C3 Care Teams Button Breaker Relationship Specialty Start Date End Date Koki Vu MD [address] [place] [address] PCP - General Family Medicine 10/23/20 Addie Catering And Events ManagerBowling Alley Mechanic 06/17/24
--- OUTSIDE RECORDS SUMMARY | 2024-11-29 12:49 | XMS_ITS | Encounter Summary ---
Author Organization [employer] Address [address] [facility] [address] 7t [place] [address] Care Team Providers Care Crew Leader Gluing Name Role Phone Koki Vu MD Primary Care Provider [phone] Encounter Details Date Type Department Care Team (Late st Contact Info) Description 08/23/2023 Abstract [facility] MEDICINE [address] [place] [address] Koki Vu MD [address] [place] [address] Social History Tobacco Use Types Packs/Day Years [...] documented as of this encounter Care Teams Crew Leader Gluing Relationship Specialty Start Date End Date Koki Vu MD [address] [place] [address] PCP - General Family Medicine 10/23/20 Addie Multiple Sclerosis NurseBell Hole Digger 06/17/24 documented as of this encounter
== END 2024-11-29 11:46 | disposition home or self-care (01) ==
LOC: HO.LAB 11:45
PROVIDERS: PCP Family Medicine; Visit Provider Internal Medicine Gastroenterology
DX: Z91.09 Other allergy status, other than to drugs and biological substances (principal)
CPT/HCPCS: 36415; 86003

== ENCOUNTER 2024-12-03 06:18 | Outpatient (REF) | payer MEDICAID, SELFPAY ==
--- NOTE | ~2024-12-03 | FL_ITS ---
EXAMINATION: FL GUIDANCE ONLY HISTORY: M47.812 - Spondylosis without myelopathy or radiculopathy, cervical region COMPARISON: None available. TECHNIQUE: Fluoroscopy time: 0.7 minutes. Cumulative Dose: 7.39 mGy. DAP: 0.106 mGym2 Images: 6. FINDINGS: Images demonstrate needles and contrast material in the regions of the bilateral cervical facet joints. FL/FL guidance in treatment room IMPRESSION: Fluoroscopy during procedure. Please see procedure report for additional information. Electronically signed by: Kannan Santiago MD 12/03/2024 01:51 PM SHONA
--- OUTSIDE RECORDS SUMMARY | 2024-12-03 06:20 | XMS_ITS | Clinical Summary ---
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 Psoriatic arthritis [...] Already f w psychiatrist and therapist at [facility] ---advised to continue care and may need eval if meds can be adjusted Encounters Date Type Department Care Team Description 09/27/2024 10:50 AM EST Follow-Up [facility] [address] [place] [address] Soap Tender: Satinder Sanders, DO Dyspnea on exertion (Primary Dx); Moderate persistent asthma without complication 09/24/2024 Telephone [facility] [address] [place] [address] Soap Tender: Katiana Pandya MA from Last 3 Months Immunizations Immunization Administration Dates Next Due Hepatitis A Vaccine, Adult Dosage 08/14/2019 Hepatitis B adult (ENGERIX-B ADULT) vaccine 1 mL IM 08/14/2019 Influenza, Injectable, Quadr ivalent, Contains Preservative 09/06/2018,12/11/2017 Influenza, Injectable, Quadr ivalent, Preservative Free 07/31/2023,07/02/2021,08/26/2020,2018 Pneumococcal Conjugate Vacci ne, 13 Valent 06/07/2019 Pneumococcal conjugate PCV20,polysaccharide [id number] conjugate, adjuvant, PF (Prevnar 20) 02/01/2024 RSV, [...] / Fit Test 05/15/2024 05/15/2023 COVID-19 Vaccine (5 - 2023-2 5 season) 2024 04/27/2022, 09/23/2021, [...] Pneumococcal Vaccine: 50+ Years Completed , 06/07/2019 RSV Vaccine (60+ years old a nd patients) Completed 02/16/2024 Hepatitis B Vaccines Completed 04/16/2024, 02/16/2024, 08/14/2019 Influenza Vaccine Completed 06/24/2024, , 07/02/2021, Additional history exists Insurance Care Teams Neonatal Doctor Relationship Specialty Start Date End Date Koki Vu [address] [place] [phone] PCP - General 12/26/23
--- OUTSIDE RECORDS SUMMARY | 2024-12-03 06:20 | XMS_ITS | Encounter Summary ---
Author Organization [employer] Address 75 [facility] 7t [place] [address] Care Team Providers Care Crumb Packer Name Role Phone Koki Vu MD Primary Care Provider [phone] Reason for Visit * Reason Comments Med Refill Encounter Details Date Type Department Care Team ([facility] st Contact Info) Description 12/01/2024 Refill [facility] MED & PEDS [address] [place], [place] [phone] Koki Vu MD [address] [place] [address] Social History Tobacco Use Types Packs/Day Years [...] documented as of this encounter Care Teams Crumb Packer Relationship Specialty Start Date End Date Koki Vu MD [address] [place] [address] PCP - General Family Medicine 10/23/20 Addie Shopping InspectorSap Business Intelligence Consultant 06/17/24 documented as of this encounter
--- OUTSIDE RECORDS SUMMARY | 2024-12-03 06:20 | XMS_ITS | Clinical Summary ---
Author Organization [facility] ity Address [address] [place] [address] Care Team Providers Care Freight Air Brake Fitter Name Role Phone Jessica Rogers MD Primary Care Provider [phone] Social History Tobacco Use Types Packs/Day Years [...] age to complete this topic Care Teams Freight Air Brake Fitter Relationship Specialty Start Date End Date Jessica Rogers MD [address] [place] [phone] PCP - General General Surgery 09/22/21
--- OUTSIDE RECORDS SUMMARY | 2024-12-03 06:20 | XMS_ITS | Referral Summary ---
Author Organization [facility] Address [address] [place] [address] Care Team Providers Care Field Marketing Representative Name Role Phone VuKoki Primary Care Provider [phone] Encounters Date Type Department Care Team Description 09/27/2024 10:50 AM EST Follow-Up [facility] [address] [place] [address] Natural Gas Engineer: Satinder Sanders, Dyspnea on exertion (Primary Dx); Moderate persistent asthma without complication 09/24/2024 Telephone [facility] [address] [place] [phone] Natural Gas Engineer: Katiana Pandya MA from Last 3 Months [...] 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 Psoriatic arthritis [...] Already f w psychiatrist and therapist at [facility] ---advised to continue care and may need eval if meds can be adjusted Immunizations Immunization Administration Dates Next Due Hepatitis A Vaccine, Adult Dosage 08/14/2019 Hepatitis B adult (ENGERIX-B ADULT) vaccine 1 mL IM 08/14/2019 Influenza, Injectable, Quadr ivalent, Contains Preservative 09/06/2018,12/11/2017 Influenza, Injectable, Quadr ivalent, Preservative Free 07/31/2023,07/02/2021,08/26/2020,2018 Pneumococcal Conjugate Vacci ne, 13 Valent 06/07/2019 Pneumococcal conjugate PCV20,polysaccharide [id number] conjugate, adjuvant, PF (Prevnar 20) 02/01/2024 RSV, [...] Treatment Not on file Insurance Care Teams Field Marketing Representative Relationship Specialty Start Date End Date Koki Vu [address] [place] [address] PCP - General 12/26/23
--- OUTSIDE RECORDS SUMMARY | 2024-12-03 06:21 | XMS_ITS | Encounter Summary ---
Author Organization [employer] Address 75 [facility] 7t [place] [address] Care Team Providers Care Garbage Collector Supervisor Name Role Phone Koki Vu MD Primary Care Provider [phone] Reason for Visit * Reason Comments Med Refill Encounter Details Date Type Department Care Team ([facility] st Contact Info) Description 10/25/2023 Refill [facility] MED & PEDS [address] [place], [place] [phone] Koki Vu MD 505 [place] [address] Social History Tobacco Use Types Packs/Day Years [...] documented as of this encounter Care Teams Garbage Collector Supervisor Relationship Specialty Start Date End Date Koki Vu MD [address] [place] [address] PCP - General Family Medicine 10/23/20 Addie FlumerLaundry Or Dry Cleaners Counter Clerk 06/17/24 documented as of this encounter
--- OUTSIDE RECORDS SUMMARY | 2024-12-03 06:21 | XMS_ITS | Encounter Summary ---
Author Organization [employer] Address 75 [facility] 7t [place] [address] Care Team Providers Care Shag Truck Driver Name Role Phone Koki Vu MD Primary Care Provider [phone] Reason for Visit * Reason Onset Date Comments Durable Medical Equipment 02/07/2024 Encounter Details Date Type Department Care Team ([facility] st Contact Info) Description 02/07/2024 Telephone [facility] CHC MED & PEDS [address] [place] [address] Koki Vu MD [address] [place] [address] Durable Medical Equipment Social History Tobacco Use [...] documented as of this encounter Care Teams Shag Truck Driver Relationship Specialty Start Date End Date Koki Vu MD [address] [place] [address] PCP - General Family Medicine 10/23/20 Addie Validation InternLanguage Arts Teacher 06/17/24 documented as of this encounter
--- OUTSIDE RECORDS SUMMARY | 2024-12-03 06:21 | XMS_ITS | Encounter Summary ---
Author Organization [email or web address] Address [address] [facility] [address], [place] [address] Care Team Providers Care Order Fulfillment Specialist Name Role Phone Koki Vu MD Primary Care Provider [phone] Reason for Referral * Consultation (Routine) - Closed Specialty Diagnoses / Procedures Referred By Contac t Referred To Contact Rheumatology Diagnoses Erosion of bone Tirso Mayfield MD [address] [place] [address] Phone: tel: fax: [facility] [address] Phone: tel: fax: Referral ID Status Reason Start Date Expiration Date V isits Requested Visits Authorized [id number] Closed Specialty Services Required 08/02/2024 08/02/2025 1 1 Encounter Details Date Type Department Care Team (Late st Contact Info) Description 08/02/2024 Orders Only [facility]S [address] [place] [address] Tirso Mayfield MD [address] [place] [address] Erosion of bone (Primary Dx) Social History [...] AM EDT) Rheumatoid Factor <13.0 <15.0 IU/mL [facility] Blood Venous blood specimen / Unknown 08/08/2024 10:40 AM EDT 08/08/2024 1:17 PM EDT Tirso Jara MD LAB BLOOD ORDERABL ES Final Result Performing Organization Address [facility] de Phone Number [facility] [address] [place] [phone] * Cyclic Citrullinated Peptide (CCP) Antibody (IgG) (08/08/2024 10:40 AM EDT) Cyclic Citrullinated Peptide <16 UNITS [facility] Comment:Reference RangeNegat shalom: <20Weak Positive: 20-39Moderate Positive: 40-59Strong Positive: >59THIS TEST WAS PERFORMED AT:[facility] [place] [phone] RECINOS MD Blood Venous blood specimen / Unknown 08/08/2024 10:40 AM EDT 08/08/2024 1:17 PM EDT Tirso Jara MD LAB BLOOD ORDERABL ES Final Result Performing Organization Address [facility] de Phone Number [facility] [address] [place] [phone] documented in this encounter Visit Diagnoses Diagnosis Erosion of bone- Primary documented in this encounter Additional Health Concerns Assessment Noted Time PHQ-9 Depression Total Score: 17 023 11:11 AM EDT documented as of this encounter Care Teams Order Fulfillment Specialist Relationship Specialty Start Date End Date Koki Vu MD [address] [place] [address] PCP - General Family Medicine 10/23/20 Addie Slipcover CutterStucco Mason 06/17/24 documented as of this encounter
--- OUTSIDE RECORDS SUMMARY | 2024-12-03 06:21 | XMS_ITS | Encounter Summary ---
Author Organization [employer] Address [address] [facility] [address] 7t [place] [address] Care Team Providers Care Typesetter Apprentice Name Role Phone Koki Vu MD Primary Care Provider [phone] Encounter Details Date Type Department Care Team (Late st Contact Info) Description 08/23/2023 Abstract [facility] MEDICINE [address] [place] [address] Koki Vu MD [address] [place] [address] Social History Tobacco Use Types Packs/Day Years [...] documented as of this encounter Care Teams Typesetter Apprentice Relationship Specialty Start Date End Date Koki Vu MD [address] [place] [address] PCP - General Family Medicine 10/23/20 Addie Laboratory Mechanical TechnicianDirector Pharmacology 06/17/24 documented as of this encounter
--- OUTSIDE RECORDS SUMMARY | 2024-12-03 06:21 | XMS_ITS | Encounter Summary ---
Author Organization [employer] Address 75 [facility] 7t [place] [address] Care Team Providers Care Lubricating Machine Tender Name Role Phone Koki Vu MD Primary Care Provider [phone] Reason for Visit * Reason Comments Med Refill Encounter Details Date Type Department Care Team ([facility] st Contact Info) Description 03/28/2024 Refill [facility]EDS [address] [place], [place] [phone] Koki Vu MD [address] [place] [address] Social History Tobacco Use Types Packs/Day Years [...] documented as of this encounter Care Teams Lubricating Machine Tender Relationship Specialty Start Date End Date Koki Vu MD [address] [place] [address] PCP - General Family Medicine 10/23/20 Addie Clinical CytogeneticistPainter Structural Steel 06/17/24 documented as of this encounter
--- OUTSIDE RECORDS SUMMARY | 2024-12-03 06:21 | XMS_ITS | Encounter Summary ---
Author Organization [employer] Address [address] [facility] [address] 7t [place] [address] Care Team Providers Care Console Assembler Name Role Phone Koki Vu MD Primary Care Provider [phone] Encounter Details Date Type Department Care Team ([facility] st Contact Info) Description 09/27/2024 Telephone [facility] CHC MED & PEDS [address] [place], [place] [phone] Koki Vu MD [address] [place] [address] Social History Tobacco Use Types Packs/Day Years [...] EST TC from [place] fl[place] DO with [facility] pulmonology requesting a call back from pcp to discuss further medical options. Best contact # [phone]. documented in this encounter Plan of Treatment Not on file documented as of this encounter Visit Diagnoses Not on filedocumented in this encounter Additional Health Concerns Assessment Noted Time PHQ-9 Depression Total Score: 17 023 11:11 AM EDT documented as of this encounter Care Teams Console Assembler Relationship Specialty Start Date End Date Koki Vu MD [address] [place] [address] PCP - General Family Medicine 10/23/20 Addie Laboratory GeneticistSeed Service Advisor 06/17/24 documented as of this encounter
--- OUTSIDE RECORDS SUMMARY | 2024-12-03 06:21 | XMS_ITS | Clinical Summary ---
Author Organization [employer] Address [address] [place] [address] 7t [place] [address] Care Team Providers Care Recreational Therapist Name Role Phone Koki Vu MD Primary Care Provider [phone] Allergies No known active allergies Medications lactulose (Chronulac) 10 GM/15ML solution Take 30 mL by mouth in the morning. Active acetaminophen (Tylenol 8 Hour) 650 MG ER tablet Take 1 tablet by mouth every 8 (eight) hours. Active albuterol (ProAir HFA) 108 (90 Base) MCG/ACT inhaler Inhale 2 puffs every 4 (four) hours. Active busPIRone (Buspar) 15 MG tablet Take 15 mg by mouth 3 times daily. Active cetirizine (ZyrTEC) 10 MG tablet TAKE 1 TABLET BY MOUTH EVERY DAY NEEDED FOR RASH Active EPINEPHrine (Epipen) 0.3 MG/0.3ML injection syringe Inject 0.3 mL into the shoulder, thigh, or buttocks. Active escitalopram (Lexapro) 20 MG tablet Take 20 mg by mouth at bedtime. Active Enbrel SureClick 50 MG/ML injection 023 Active famotidine (Pepcid) 40 MG tablet Take 40 mg by mouth at bedtime. 022 Active fluticasone (Flonase) 50 MCG/ACT nasal spray INSTILL 1-2 SPRAYS IN EACH NOSTRIL ONCE DAILY NEEDED Active Advair Diskus 250-50 MCG/ACT aerosol powder INHALE 1 PUFF BY MOUTH TWICE DAILY. RINSE MOUTH AFTER USING. Active loratadine (Claritin) 10 MG tablet Take 10 mg by mouth in the morning. Active tiZANidine (Zanaflex) 4 MG tablet TAKE 1 TABLET BY MOUTH EVERY 6 TO 8 HOURS NEEDED. DO NOT EXCEED 3 DOSES IN 24 HOURS. Active omeprazole (PriLOSEC) [address] capsule Take 40 mg by mouth in the morning. Active naloxone (Narcan) 4 mg/0.1 mL nasal spray FOR SUSPECTED OPIOID OVERDOSE. SPRAY 0.1mL IN ONE NOSTRIL. REPEAT IN ALTERNATE NOSTRIL 2-3 MINUTES IF NEEDED. SEEK MEDICAL ATTENTION IMMEDIATELY EVEN IF PATIENT RESPONDS. Active bumetanide (Bumex) 1 MG tablet Take 1 mg by mouth in the morning. Active HM ClearLax 17 GM/SCOOP powder Mix 17g (1 capful) in 8 ounces of water and take by mouth every day Active amLODIPine (Norvasc) 5 MG tablet Take 5 mg by mouth in the morning. Active cholecalciferol (Vitamin D-3) 50 MCG (2000 UT) tabletIndications :Vitamin D deficiency, unspecified TAKE 1 TABLET BY MOUTH EVERY DAY 30 tablet 11 Active sucralfate (Carafate) 1 GM/10ML suspension Take 10 mL (1 g) by mouth every 6 (six) hours. 414 mL 3 Active lidocaine (Lidoderm) 5 % patch APPLY 3 PATCHES TO SKIN DAILY FOR UP TO 12 HOURS, THEN REMOVE FOR 12 HOURS. 90 patch 5 Active levothyroxine (Synthroid, Levoxyl) 88 MCG tablet TAKE 1 TABLET BY MOUTH EVERY DAY IN THE MORNING 90 tablet 5 Active amitriptyline (Elavil) 50 MG tabletIndications :Chronic low back pain, unspecified back pain laterality, unspecified whether sciatica present TAKE 1 TABLET BY MOUTH AT BEDTIME 90 tablet 1 Active magnesium oxide (Mag-Ox) 400 (240 Mg) MG tablet Take 400 mg by mouth Once per day. 04/01/2 024 Active riboflavin (Vitamin B-2) 400 MG tablet Take 1 tablet by mouth Once per day. 024 Active Diclofenac Sodium 1 % gel Apply 2 g topically if needed in the morning, at noon, in the evening, and at bedtime (pain). Apply to affected areas of hands. 100 g 1 024 Active ibuprofen 600 MG tablet Take 600 mg by mouth. 024 Active SUMAtriptan (Imitrex) 100 MG tablet TAKE 1/2 TO 1 TABLET BY MOUTH AT ONSET OF HEADACHE, MAY REPEAT DOSE IN 2 HOURS NEEDED FOR MIGRAINE. DO NOT EXCEED 2 TABLETS PER DAY OR 4 TABLETS PER WEEK. MAY TAKE WITH tylenol. Active atorvastatin (Lipitor) 80 MG tabletIndications :Hyperlipidemia, unspecified hyperlipidemia type TAKE 1 TABLET BY MOUTH EVERY DAY AT BEDTIME 90 tablet 1 024 Active triamcinolone (Kenalog) 0.1 % cream Mix with cerave cream and apply 1x/d 80 g 2 025 Active pregabalin (Lyrica) 225 MG capsule TAKE 1 CAPSULE BY MOUTH TWICE DAILY 60 capsule 1 025 Active pregabalin (Lyrica) 225 MG capsule TAKE 1 CAPSULE BY MOUTH TWICE DAILY 60 capsule 1 024 2024 Discontinued predniSONE (Deltasone) 20 MG tablet Take 1 tablet (20 mg) by mouth Once per day for 5 days. 5 tablet 025 2024 Active Problems Problem Noted Date Diagnosed Date [...] reports he needs new TSH border for ion exchange operator referal placed in previous appointment. Assessment & [...] Encounters Date Type Department Care Team Description 12/01/2024 Refill [facility] MED [facility] PEDS [address] [place] [address] Koki Vu MD 11/28/2024 9:40 AM EST Office Visit [facility] [address] [place] [address] Starr Escobar MD Atopic dermatitis in adult (Primary Dx); Chronic migraine without aura without status migrainosus, not intractable 11/22/2024 8:30 AM EST Office Visit [facility] [address] [place] [address] Tirso Mayfield MD Psoriatic arthritis ([facility]/HCC) (Primary Dx) 11/22/2024 Travel 11/20/2024 Telephone [facility] MED [facility] PED[facility] [address] [place] [address] Koki Vu MD Nurse Triage 10/21/2024 Orders Only [facility] External Provider, [facility] 09/27/2024 Telephone [facility]ED[facility] [address] [place] [address] Koki Vu MD 09/19/2024 Refill [facility] [address] [place] [address] Koki Vu MD from Last 3 Months [...] EST Narrative 10/22/2024 3:45 PM EST ? [facility] ?[address] ?[place] [address] ? Magnetic Resonance Report ? Signed ? Patient: [place] Elkins,Kvng E ?MR#: [id number] ?? [id number] ? : 1965 ?Acct:[id number] ? Age/Sex: 59 / M ?ADM Date: 10/21/ ? Loc: HO.MRI ? Attending Dr: Winston Boykin MD ? Ordering Physician: Winston Boykin MD ?? Date of Service: 10/21/24 ?? Procedure(s): MR lumbar spine wo con ?? Accession Number(s): [id number] ? cc: Winston Boykin MD; Koki Vu [...] DD/ 0955 ? TD/TT: 10/21/24 1020 ? Spinner Tender: ? Procedure Note [place], Image - 10/22/2024 [place] [address] Magnetic Resonance Report Signed Patient: Kvng Ramon EMR#: [id number] : 1965Acct:[id number] Age/Sex: 59 / MADM Date: 10/21/24 Loc: HO.MRI Attending Dr: Winston Boykin MD Ordering Physician: Winston Boykin MD Date of Service: 10/21/24 Procedure(s): MR lumbar spine wo con Accession Number(s): [id number] cc: Winston Boykin MD; Koki Vu MD [...] 10/22/24 1542 DD/ 0955 TD/TT: 10/21/24 1020 Spinner Tender: [facility] External Provider IMG MRI PROCEDURES Final Result * Hepatitis Panel, General (08/13/2024 11:49 AM EST) Hepatitis A IgM Nonreactive Nonreactive [facility] Comment:IgM antibodies to TORREZ V not detected; does not exclude earlyacute or recovered HAV infection. ~Hepatitis B Surface Antibody NONREACTIVE Nonreactive [facility] Comment:Nonreactive: < 8.00 mIU/mL Hepatitis B Core Antibody Nonreactive Nonreactive [facility] Hepatitis C Antibody Nonreactive Nonreactive [facility] Comment:Antibodies to HCV no t detected; does not exclude early acuteHCV infection. Hepatitis B Surface Ag Negative Negative [facility] 08/13/2024 11:4 9 AM EST 08/13/2024 11:49 AM EST Generic External Data Provider LAB BLOOD ORDERAB LES Final Result [facility] [address] [place] [phone] * Cologuard?? colon cancer screening (08/10/2023 3:59 PM EDT) Cologuard Result Negative Negative 08/17/20 9:[address] [facility] [employer] (CLIA #:[id number]) Comment: NEGATIVE TEST RESULT. A negative Cologuard [...] cancer. ??Following a negative Cologuard result, the [place] Cancer Society and U.S. Multi-Society Task Force screening guidelines recommend a Cologuard re-screening interval of 3 years. References: [place] Cancer Society Guideline for Colorectal Cancer Screening: https://www.cancer.org/cancer/gqlbd-uwfpee-dilctz/cnbyjtcrb-nbibfrhla-sybgdoo/ac s-rec ommendations.html.; Delroy MULLIGAN, Rere OTERO, Guy RochaK, Colorectal Cancer Screening: Recommendations for Physicians and Patients from the U.S. Multi-Society Task Force on Colorectal Cancer Screening , Am J Gastroenterology 2017; 112:9149-4368. TEST DESCRIPTION: Composite algorithmic analysis of stool [...] (Harris Albarran al, N Engl J Med 2014;370(14):2683-2626.) Cologuard may produce a false negative or false positive result (no colorectal cancer or precancerous polyp present at colonoscopy follow up). A negative Cologuard test result does not guarantee the absence of CRC or advanced adenoma (pre-cancer). The current Cologuard screening interval is every 3 years. ([place] Cancer Society and U.S. Multi-Society Task Force). Cologuard performance data in a 10,000 patient pivotal study using colonoscopy as the reference method can be accessed at the following location: www.[employer]/results. Additional description of the Cologuard test process, warnings and precautions can be found at www.Paymetricrd.com. Stool specimen (specimen) 08/10/2023 3:59 PM EDT 08/11/2023 6:19 PM EDT us Koki Vu MD LAB MOLECULAR DIAGNOSTICS ORD ERABLES Final Result [employer] (CLIA #:[id number]) [place] [address], * Hemoglobin A1c (05/15/2023 12:13 PM EDT) Hemoglobin A1c 5.7 % [facility] Comment:Hemoglobin A1C Refer ence Range Adults: 4.8 - 6.0 % Non diabetic: < 6.0 % Goal: < 7.0 %Additional Action Suggested: > 8.0 %Note: Hemoglobin A1c results are invalid for patients with abnormal amounts of HbF. Blood transfusions may impact the HbA1c concentration in the patient sample. Estimated Average Glucose 117 mg/dL [facility] Comment:eAG = Estimated ave rage glucose which is %A1C expressed asaverage glucose, using the formula of the F2N-AczmlfyIgblfmk Glucose study (ADAG), Diabetes Care, Vol.31,#8,Aug. 2007 Blood Venous blood specimen / Unknown 05/15/2023 12:13 PM EDT 05/15/2023 2:16 PM EDT us Koki Vu MD LAB BLOOD ORDERABLES Final Re sult [facility] [address] [place] [phone] * (ABNORMAL) LIPID PANEL, STANDARD (04/15/2022 9:27 AM EDT) Chol/HDLC Ratio 3.8 <5.0 (calc) [facility] Cholesterol, Total 204(H) <200 mg/dL [...] ?? Mo JAY et al. RADHA. 2013;310(19): 4027-4768 ?? (http://education.[employer]faq/AZF234) Non-HDL Cholesterol 151(H) <130 mg/dL (calc) [facility] Comment: For patients with diabetes plus 1 major ASCVD risk ?? factor, treating to a non-HDL-C goal of <100 mg/dL ?? (LDL-C of <70 mg/dL) is considered a therapeutic ?? option. Triglycerides 109 <150 mg/dL [facility] 04/15/2022 9:27 AM EDT us Koki Vu MD LAB BLOOD ORDERABLES Final Re sult [facility] [address] * Hm Colonoscopy (04/17/2018 6:07 AM EDT) us Historical Provider HEALTH MAINTENANCE Final Result from Last 3 Months or Most Recently Relevant to Health Maintenance [place] [address] [place] [address] C3 Care Teams Recreational Therapist Relationship Specialty Start Date End Date Koki Vu MD [address] [place] [address] PCP - General Family Medicine 10/23/20 Addie Bacteriology Research AssistantSolar Electric Installer 06/17/24
--- OUTSIDE RECORDS SUMMARY | 2024-12-03 06:21 | XMS_ITS | Encounter Summary ---
Author Organization [employer] Address [address] [facility] 7t [place] [address] Care Team Providers Care Mems Device Scientist Name Role Phone Koki Vu MD Primary Care Provider [phone] Reason for Visit * Reason Onset Date Comments Nurse Triage 11/20/2024 Encounter Details Date Type Department Care Team ([facility] st Contact Info) Description 11/20/2024 Telephone [facility] CHC MED & PEDS [address] [place] [address] Koki Vu MD [address] [place] [address] Nurse Triage Social History Tobacco Use Types [...] 11/20/2024 1:17 PM EST Triage call with [facility] [place] Adv[place] [id number], [place]. Pt reports last seen 06/24/25 in [facility] for bilateral wrist/hand pain. Since that time [...] documented as of this encounter Care Teams Mems Device Scientist Relationship Specialty Start Date End Date Koki Vu MD [address] [place] [address] PCP - General Family Medicine 10/23/20 Addie Trim InstallerLabeling Specialist 06/17/24 documented as of this encounter
--- OUTSIDE RECORDS SUMMARY | 2024-12-03 06:21 | XMS_ITS | Encounter Summary ---
Author Organization [employer] Address [address] [facility] 7t [place] [address] Care Team Providers Care Supervisor Glycerin Name Role Phone Koki Vu MD Primary Care Provider [phone] Reason for Visit * Reason Comments Med Refill Encounter Details Date Type Department Care Team ([facility] st Contact Info) Description 10/25/2023 Refill [facility] CHC MED & PEDS [address] [place], [place] [phone] Koki Vu MD [address] [place] [address] Social History Tobacco Use Types Packs/Day Years [...] as of this encounter Care Teams Supervisor Glycerin Relationship Specialty Start Date End Date Koki Vu MD [address] [place] [address] PCP - General Family Medicine 10/23/20 Addie Wet Process Head MillerFarm Crew Member 06/17/24 documented as of this encounter
--- OUTSIDE RECORDS SUMMARY | 2024-12-03 06:21 | XMS_ITS | Clinical Summary ---
Author Organization [facility] Address [address] [place] [address] Care Team Providers Care Investor Relations Analyst Name Role Phone Unavailable Primary Care Provider [...] to complete this topic , [address] [place] [address]
--- OUTSIDE RECORDS SUMMARY | 2024-12-03 06:21 | XMS_ITS | Encounter Summary ---
Author Organization [employer] Address [address] [facility] [address] 7t [place] [address] Care Team Providers Care Storyboard Artist Name Role Phone Koki Vu MD Primary Care Provider [phone] Encounter Details Date Type Department Care Team (Late st Contact Info) Description 02/05/2024 Orders Only [facility] MEDICINE [address] [place] [address] Provider, MD Nasima Social History Tobacco Use [...] documented as of this encounter Care Teams Storyboard Artist Relationship Specialty Start Date End Date Koki Vu MD [address] [place] [phone] PCP - General Family Medicine 10/23/20 Addie Factory Machine Computer OperatorCasino Supervisor 06/17/24 documented as of this encounter
--- OUTSIDE RECORDS SUMMARY | 2024-12-03 06:21 | XMS_ITS | Encounter Summary ---
Author Organization [employer] Address [address] [facility] [facility] [address] [place] [address] Care Team Providers Care Steam Plant Control Room Operator Name Role Phone Koki Vu MD Primary Care Provider [phone] Encounter Details Date Type Department Care Team [...] documented as of this encounter Care Teams Steam Plant Control Room Operator Relationship Specialty Start Date End Date Koki Vu MD [address] [place] [address] PCP - General Family Medicine 10/23/20 Addie Shower MaidBeck Tender 06/17/24 documented as of this encounter
--- OUTSIDE RECORDS SUMMARY | 2024-12-03 06:21 | XMS_ITS | Encounter Summary ---
Author Organization [employer] Address [address] [facility] [address] [place] [address] Care Team Providers Care District Wildlife Manager Name Role Phone Koki Vu MD Primary Care Provider [phone] Encounter Details Date Type Department Care Team (Late st Contact Info) Description 11/28/2024 9:40 AM EST Office Visit [facility] [address] [place] [phone] Starr Escobar MD [address] [place], [place] [phone] Atopic dermatitis in adult (Primary Dx); Chronic [...] documented as of this encounter Care Teams District Wildlife Manager Relationship Specialty Start Date End Date Koki Vu MD [address] [place] [phone] PCP - General Family Medicine 10/23/20 Addie Actuarial AssistantLodge Officer 06/17/24 documented as of this encounter
--- OUTSIDE RECORDS SUMMARY | 2024-12-03 06:21 | XMS_ITS | Encounter Summary ---
Author Organization [employer] Address [address] [facility] 7t [place] [address] Care Team Providers Care Casework Supervisor Name Role Phone Koki Vu MD Primary Care Provider [phone] Encounter Details Date Type Department Care Team ([facility] st Contact Info) Description 11/22/2024 8:30 AM EST Office Visit [facility] MED & PEDS [address] [place], [place] [phone] Tirso Mayfield MD [address] [place] [address] Psoriatic arthritis (CMS/HCC) (Primary Dx) Social History [...] documented as of this encounter Care Teams Casework Supervisor Relationship Specialty Start Date End Date Koki Vu MD [address] [place] [address] PCP - General Family Medicine 10/23/20 Addie Felt Hat Flanging OperatorPress Feeder Broomcorn 06/17/24 documented as of this encounter
== END 2024-12-03 06:19 | disposition home or self-care (01) ==
LOC: CF 06:18
PROVIDERS: Visit Provider Anesthesiology
DX: M47.812 Spondylosis without myelopathy or radiculopathy, cervical region (principal)
CPT/HCPCS: 64490; 64491; J2003; J2795; Q9967

== ENCOUNTER 2024-12-03 08:43 | Outpatient (AMB) | payer MEDICAID, SELFPAY ==
[2024-12-03 08:49] VITALS: BP 138/84; PULSE 77; O2SAT 99
--- NOTE | 2024-12-03 08:49 | A.OFFVIS_ITS ---
Vital Signs 12/03/24 08:49 12/03/24 10:06 BP 138/84 157/97 H Blood Pressure Location Lt brachial Lt brachial Position Sitting Sitting Pulse 77 66 Pulse Source Pulse Oximeter Pulse Oximeter Pulse Oximetry (%) 99 97 Oxygen Delivery Method Room Air Room Air Comment Pre-Op Post-Op Intake Visit Reasons: BILATERAL DIAGNOSTIC C2, C3, C4 MBB Allergies fremanezumab-vfrm [From Ajovy Autoinjector] Allergy (Unknown, Verified 11/29/24 10:11) Rash [facility] 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 Venous congestion Pain in right lower leg Lipoma of scalp Kidney cysts Spondylosis of thoracic spine Spondylosis of lumbar spine Schatzki's ring Fatty liver HTN (hypertension) Pre-diabetes Dysphagia Asthma Hx of chest pain DAYNA on CPAP Hypothyroid Psoriasis Psoriatic arthritis Chronic pain Mood disorder Depression Avascular necrosis Chronic pain syndrome Spondylosis of lumbar region without myelopathy or radiculopathy Spondylosis, cervical Degeneration, intervertebral disc, cervical Surgical History History of back surgery History of surgery Status post excision of lipoma (~10/21/21) Status post cardiac catheterization Hx of cardiac cath H/O neck surgery Hx of hand surgery Hx of endoscopy History of colonoscopy Family History Father Cirrhosis Alcoholism Mother Diabetes HTN (hypertension) Parkinson disease Brother Cirrhosis Alcoholism Social History Household Members: Spouse and Children Are you a primary veterinarian laboratory animal care to a significant other at home: No Do you presently have visiting nurse or other home services: No Alcohol intake: never Patient Tobacco Use Status: Former Tobacco user Tobacco use type: Cigarette Second Hand Smoke Exposure: No Current occupational status: disabled Current occupation: rt handed Physical Exam Vital Signs: Last Vital Signs Pulse 66 12/03/24 10:06 BP 157/97 H 12/03/24 10:06 Pulse Ox 97 12/03/24 10:06 Oxygen Delivery Method Room Air 12/03/24 10:06 Assessment & Plan Assessment & Plan (1) Spondylosis of cervical region without myelopathy or radiculopathy: Code(s): M47.812 - Spondylosis without myelopathy or radiculopathy, cervical region Category: Medical Plan Diagnostic medial branch block C2,C3,C4 bilateral. Informed consent was explained thoroughly to the patient.? All questions about benefits and risks for the procedure were answered. Time-out was performed delineating correct side and site of the procedure name date of of the patient allergies of the patient. Patient came to the operating room and was positioned prone on the operating table with the pillow under the chest. The upper back and entire posterior neck were prepped with ChloraPrep and draped with self adhesive sterile utility towels. C-arm was brought over the operating field and picture of C2, C3, C4 vertebra were sequentially obtain on the screen. The point of interest were delineated as the lateral masses of the above- mentioned vertebra. The waistline of each lateral mass was chosen as the point of needle advancement. The projection of the point of interest to the skin was injected with small amount of lidocaine 2% mixed with ropivacaine 0.5%. After that 3 needles 3-1/2 inch long 22 gauge were inserted through the skin wheals and advanced over the point of interest 1st on the right and then on the left side. When tips of the needles gently contacted the bone injection of the contrast was performed delineating no intravascular and no intrathecal uptake of the contrast. After that small amount of ropivacaine 0.5% no more than 1 mL was injected at each needle location. Upon completion of the injections the needles were removed and sterile Band-Aids were applied. Patient was taken outside of the operating room to recovery room where he recovered uneventfully. Orders: Orders FL guidance in treatment room Today M47.812 - Spondylosis without myelopathy or radiculopathy, cervical region Coding Level of Care Code Procedure Only Diagnoses Spondylosis of cervical region without myelopathy or radiculopathy M47.812
--- OUTSIDE RECORDS SUMMARY | 2024-12-03 09:16 | XMS_ITS | Encounter Summary ---
Author Organization [employer] Address 75 [facility] 7t [place] [address] Care Team Providers Care Tin Flipper Name Role Phone Koki Vu MD Primary Care Provider [phone] Reason for Visit * Reason Comments Med Refill Encounter Details Date Type Department Care Team ([facility] st Contact Info) Description 12/01/2024 Refill [facility] MED & PEDS [address] [place], [place] [phone] Koki Vu MD [address] [place] [address] Social History Tobacco Use Types Packs/Day Years [...] documented as of this encounter Care Teams Tin Flipper Relationship Specialty Start Date End Date Koki Vu MD [address] [place] [phone] PCP - General Family Medicine 10/23/20 Addie Worldwide Chief Creative OfficerExchange Operator 06/17/24 documented as of this encounter
--- OUTSIDE RECORDS SUMMARY | 2024-12-03 09:16 | XMS_ITS | Clinical Summary ---
Author Organization [facility] Address [address] [place] [address] Care Team Providers Care Production Quality Manager Name Role Phone Jessica Rogers MD Primary Care Provider [phone] Social History Tobacco Use Types Packs/Day Years [...] age to complete this topic Care Teams Production Quality Manager Relationship Specialty Start Date End Date Jessica Rogers MD [address] [place] [address] [phone] PCP - General General Surgery 09/22/21
--- OUTSIDE RECORDS SUMMARY | 2024-12-03 09:16 | XMS_ITS | Referral Summary ---
Author Organization [facility] Address [address] [place] [address] Care Team Providers Care Physical Science Technician Name Role Phone VuKoki Primary Care Provider [phone] Encounters Date Type Department Care Team Description 09/27/2024 10:50 AM EST Follow-Up [facility] [address] [place] [address] Associate Professor Of Philosophy: Satinder Sanders, Dyspnea on exertion (Primary Dx); Moderate persistent asthma without complication 09/24/2024 Telephone [facility] [address] [place] [address] Associate Professor Of Philosophy: Katiana Pandya MA from Last 3 Months [...] 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 Psoriatic arthritis [...] Already f w psychiatrist and therapist at [facility] ---advised to continue care and may need eval if meds can be adjusted Immunizations Immunization Administration Dates Next Due Hepatitis A Vaccine, Adult Dosage 08/14/2019 Hepatitis B adult (ENGERIX-B ADULT) vaccine 1 mL IM 08/14/2019 Influenza, Injectable, Quadr ivalent, Contains Preservative 09/06/2018,12/11/2017 Influenza, Injectable, Quadr ivalent, Preservative Free 07/31/2023,07/02/2021,08/26/2020,2018 Pneumococcal Conjugate Vacci ne, 13 Valent 06/07/2019 Pneumococcal conjugate PCV20,polysaccharide [id number] conjugate, adjuvant, PF (Prevnar 20) 02/01/2024 RSV, [...] Treatment Not on file Insurance Care Teams Physical Science Technician Relationship Specialty Start Date End Date Koki Vu [address] [place] [phone] PCP - General 12/26/23
--- OUTSIDE RECORDS SUMMARY | 2024-12-03 09:16 | XMS_ITS | Clinical Summary ---
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 Psoriatic [...] Already f w psychiatrist and therapist at [facility] ---advised to continue care and may need eval if meds can be adjusted Encounters Date Type Department Care Team Description 09/27/2024 10:50 AM EST Follow-Up [facility] [address] [place] [address] Electronic Equipment Trades Worker: Satinder Sanders, DO Dyspnea on exertion (Primary Dx); Moderate persistent asthma without complication 09/24/2024 Telephone [facility] [address] [place] [address] Electronic Equipment Trades Worker: Katiana Pandya MA from Last 3 Months Immunizations Immunization Administration Dates Next Due Hepatitis A Vaccine, Adult Dosage 08/14/2019 Hepatitis B adult (ENGERIX-B ADULT) vaccine 1 mL IM 08/14/2019 Influenza, Injectable, Quadr ivalent, Contains Preservative 09/06/2018,12/11/2017 Influenza, Injectable, Quadr ivalent, Preservative Free 07/31/2023,07/02/2021,08/26/2020,2018 Pneumococcal Conjugate Vacci ne, 13 Valent 06/07/2019 Pneumococcal conjugate PCV20,polysaccharide [id number] conjugate, adjuvant, PF (Prevnar 20) 02/01/2024 RSV, [...] 07/02/2021, Additional history exists Insurance Care Teams Dispensing Optician Apprentice Relationship Specialty Start Date End Date Koki Vu [address] [place] [phone] PCP - General 12/26/23
--- OUTSIDE RECORDS SUMMARY | 2024-12-03 09:17 | XMS_ITS | Encounter Summary ---
Author Organization [employer] Address [address] [facility] [address] 7t [place] [address] Care Team Providers Care Tractor Drill Operator Name Role Phone Koki Vu MD Primary Care Provider [phone] Encounter Details Date Type Department Care Team ([facility] st Contact Info) Description 09/27/2024 Telephone [facility] [address] [place], [place] [phone] Koki Vu MD [address] [place] [address] Social History Tobacco Use Types Packs/Day Years [...] EST TC from Satinder flores DO with [facility] pulmonology requesting a call back from pcp to discuss further medical options. Best contact # [phone]. documented in this encounter Plan of Treatment Not on file documented as of this encounter Visit Diagnoses Not on filedocumented in this encounter Additional Health Concerns Assessment Noted Time PHQ-9 Depression Total Score: 17 023 11:11 AM EDT documented as of this encounter Care Teams Tractor Drill Operator Relationship Specialty Start Date End Date Koki Vu MD [address] [place] [address] PCP - General Family Medicine 10/23/20 Addie Program AttendantBakery Team Member 06/17/24 documented as of this encounter
--- OUTSIDE RECORDS SUMMARY | 2024-12-03 09:17 | XMS_ITS | Encounter Summary ---
Author Organization [employer] Address [address] [facility] [address] [place] [address] Care Team Providers Care Bell Ringer Name Role Phone Koki Vu MD Primary Care Provider [phone] Encounter Details Date Type Department Care Team [...] documented as of this encounter Care Teams Bell Ringer Relationship Specialty Start Date End Date Koki Vu MD [address] [place] [address] PCP - General Family Medicine 10/23/20 Addie Regulatory InternBridge Saw Operator 06/17/24 documented as of this encounter
--- OUTSIDE RECORDS SUMMARY | 2024-12-03 09:17 | XMS_ITS | Encounter Summary ---
Author Organization [employer] Address [address] [facility] [address] [place] [address] Care Team Providers Care Shift Nurse Manager Name Role Phone Koki Vu MD Primary Care Provider [phone] Encounter Details Date Type Department Care Team (Late st Contact Info) Description 02/05/2024 Orders Only [facility] [address] [place] [address] Provider, MD Nasima Social History Tobacco Use [...] documented as of this encounter Care Teams Shift Nurse Manager Relationship Specialty Start Date End Date Koki Vu MD [address] [place] [address] PCP - General Family Medicine 10/23/[address] Judge 06/17/24 documented as of this encounter
--- OUTSIDE RECORDS SUMMARY | 2024-12-03 09:17 | XMS_ITS | Encounter Summary ---
Author Organization [employer] Address [address] [facility] 7t [place] [address] Care Team Providers Care Pit Crew Support Worker Name Role Phone Koki Vu MD Primary Care Provider [phone] Reason for Visit * Reason Comments Med Refill Encounter Details Date Type Department Care Team ([facility] st Contact Info) Description 10/25/[address] [facility] & PEDS [address] [place], [place] [phone] Koki Vu MD [address] [place] [address] Social History Tobacco Use Types Packs/Day Years [...] documented as of this encounter Care Teams Pit Crew Support Worker Relationship Specialty Start Date End Date Koki Vu MD [address] [place] [address] PCP - General Family Medicine 10/23/20 Addie Front Desk PersonDirector New Product 06/17/24 documented as of this encounter
--- OUTSIDE RECORDS SUMMARY | 2024-12-03 09:17 | XMS_ITS | Encounter Summary ---
Author Organization [employer] Address [address] [facility] [address] 7[address] [place] [address] Care Team Providers Care Fusion Analyst Name Role Phone Koki Vu MD Primary Care Provider [phone] Encounter Details Date Type Department Care Team (Late st Contact Info) Description 08/23/2023 Abstract [facility] [address] [place] [address] Kkoi Vu MD [address] [place] [address] Social History Tobacco Use Types Packs/Day Years [...] documented as of this encounter Care Teams Fusion Analyst Relationship Specialty Start Date End Date Koki Vu MD [address] [place] [address] PCP - General Family Medicine 10/23/20 Addie Bridge IronworkerBusiness Continuity Strategy Director 06/17/24 documented as of this encounter
--- OUTSIDE RECORDS SUMMARY | 2024-12-03 09:17 | XMS_ITS | Encounter Summary ---
Author Organization [employer] Address [address] [facility] [address] 7t [place] [address] Care Team Providers Care Yarding And Folding Machine Operator Name Role Phone Koki Vu MD Primary Care Provider [phone] Encounter Details Date Type Department Care Team (Late st Contact Info) Description 11/28/2024 9:40 AM EST Office Visit [facility] [address] [place] [address] [phone] Starr Escobar MD [address] [place], [place] [phone] Atopic dermatitis in adult (Primary Dx); Chronic [...] documented as of this encounter Care Teams Yarding And Folding Machine Operator Relationship Specialty Start Date End Date Koki Vu MD [address] [place] [address] PCP - General Family Medicine 10/23/20 Addie Imaging AideSock Boarder 06/17/24 documented as of this encounter
--- OUTSIDE RECORDS SUMMARY | 2024-12-03 09:17 | XMS_ITS | Encounter Summary ---
Author Organization [employer] Address [address] [facility] [address] [address] Care Team Providers Care Mogul Operator Name Role Phone Koki Vu MD Primary Care Provider Reason for Referral * Consultation (Routine) - Closed Specialty Diagnoses / Procedures Referred By Contac t Referred To Contact Rheumatology Diagnoses Erosion of bone Tirso Mayfield MD [address] [place] [address] Phone: tel: fax: [facility] [address] Phone: tel: fax: Referral ID Status Reason Start Date Expiration Date V isits Requested Visits Authorized [id number] Closed Specialty Services Required 08/02/2024 08/02/2025 1 1 Encounter Details Date Type Department Care Team (Late st Contact Info) Description 08/02/2024 Orders Only [facility] [address] [place] [address] Tirso Mayfield MD [address] [place] [address] Erosion of bone (Primary Dx) Social History [...] AM EDT) Rheumatoid Factor <13.0 <15.0 IU/mL [facility] Blood Venous blood specimen / Unknown 08/08/2024 10:40 AM EDT 08/08/2024 1:17 PM EDT Tirso Jara MD LAB BLOOD ORDERABL ES Final Result Performing Organization Address [facility] de Phone Number [facility] [address] [place] [phone] * Cyclic Citrullinated Peptide (CCP) Antibody (IgG) (08/08/2024 10:40 AM EDT) Cyclic Citrullinated Peptide <16 UNITS [facility] Comment:Reference RangeNegat shalom: <20Weak Positive: 20-39Moderate Positive: 40-59Strong Positive: >59THIS TEST WAS PERFORMED AT:[employer] [place] [phone] RECINOS MD Blood Venous blood specimen / Unknown 08/08/2024 10:40 AM EDT 08/08/2024 1:17 PM EDT Tirso Jara MD LAB BLOOD ORDERABL ES Final Result Performing Organization Address [facility] de Phone Number [facility] [address] [place] [phone] documented in this encounter Visit Diagnoses Diagnosis Erosion of bone- Primary documented in this encounter Additional Health Concerns Assessment Noted Time PHQ-9 Depression Total Score: 17 023 11:11 AM EDT documented as of this encounter Care Teams Mogul Operator Relationship Specialty Start Date End Date Koki Vu MD [address] [place] [address] PCP - General Family Medicine 10/23/20 Addie LeadlighterArmhole Feller Handstitching Machine 06/17/24 documented as of this encounter
--- OUTSIDE RECORDS SUMMARY | 2024-12-03 09:17 | XMS_ITS | Encounter Summary ---
Author Organization [employer] Address [address] [facility] 7t [place] [address] Care Team Providers Care Director Educational Radio Name Role Phone Koki Vu MD Primary Care Provider [phone] Reason for Visit * Reason Comments Med Refill Encounter Details Date Type Department Care Team ([facility] st Contact Info) Description 10/25/2023 Refill [facility] [address] [place], [place] [phone] Koki Vu MD [address] [place] [address] Social History Tobacco Use Types Packs/Day Years [...] as of this encounter Care Teams Director Educational Radio Relationship Specialty Start Date End Date Koki Vu MD [address] [place] [address] PCP - General Family Medicine 10/23/20 Addie Correspondence CoordinatorSewer Contractor 06/17/24 documented as of this encounter
--- OUTSIDE RECORDS SUMMARY | 2024-12-03 09:17 | XMS_ITS | Encounter Summary ---
Author Organization [employer] Address [address] [facility] 7t [place] [address] Care Team Providers Care Fiber Machine Tender Name Role Phone Koki Vu MD Primary Care Provider [phone] Encounter Details Date Type Department Care Team ([facility] st Contact Info) Description 11/22/2024 8:30 AM EST Office Visit [facility] [address] [place], [place] [phone] Tirso Mayfield MD [address] [place] [address] Psoriatic arthritis (CMS/HCC) (Primary Dx) Social History [...] documented as of this encounter Care Teams Fiber Machine Tender Relationship Specialty Start Date End Date Koki Vu MD [address] [place] [address] PCP - General Family Medicine 10/23/20 Addie Management PsychologistInvestigation Division Captain 06/17/24 documented as of this encounter
--- OUTSIDE RECORDS SUMMARY | 2024-12-03 09:17 | XMS_ITS | Encounter Summary ---
Author Organization [employer] Address [address] [facility] 7t [place] [address] Care Team Providers Care Calibration Checker Name Role Phone Koki Vu MD Primary Care Provider [phone] Reason for Visit * Reason Comments Med Refill Encounter Details Date Type Department Care Team ([facility] st Contact Info) Description 03/28/2024 Refill [facility] [address] [place], [place] [phone] Koki Vu MD [address] [place] [address] Social History Tobacco Use Types Packs/Day Years [...] documented as of this encounter Care Teams Calibration Checker Relationship Specialty Start Date End Date Koki Vu MD [address] [place] [address] PCP - General Family Medicine 10/23/20 Addie Merchandise StockerManager Erp 06/17/24 documented as of this encounter
--- OUTSIDE RECORDS SUMMARY | 2024-12-03 09:17 | XMS_ITS | Clinical Summary ---
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 Assessment & [...] Already f w psychiatrist and therapist at [facility] ---advised to continue care and may need eval if meds can be adjusted Chronic low back pain 12/11/2017 Assessment & Plan (06/13/2023 1:43 PM EDT): Not responsive to opiate medications. At this point will send a trial of Lyrica. Will need to proceed with PA for this. Encounters Date Type Department Care Team Description 12/01/2024 Refill [facility] [address] [place] [address] Koki Vu MD 11/28/2024 9:40 AM EST Office Visit [facility] [address] [place] [address] Starr Escobar MD Atopic dermatitis in adult (Primary Dx); Chronic migraine without aura without status migrainosus, not intractable 11/22/2024 8:30 AM EST Office Visit [facility] [address] [place] [address] Tirso Mayfield MD Psoriatic arthritis ([facility]/HCC) (Primary Dx) 11/22/2024 Travel 11/20/2024 Telephone [facility] [address] [place] [address] Koki Vu MD Nurse Triage 10/21/2024 Orders Only [facility] External Provider, [facility] 09/27/2024 Telephone [facility] [address] [place] [address] Koki Vu MD 09/19/2024 Refill [facility] [address] [place] [address] Koki Vu MD from Last 3 Months [...] ? [facility] ?[address] ?[place] [address] ? Magnetic Resonance Report ? Signed ? Patient: [place] Elkins,Kvng E ?MR#: [id number] ?? [id number] ? : 1965 ?Acct:[id number] ? Age/Sex: 59 / M ?ADM Date: 10/21/ ? Loc: HO.MRI ? Attending Dr: Winston Boykin MD ? Ordering Physician: Winston Boykin MD ?? Date of Service: 10/21/24 ?? Procedure(s): MR lumbar spine wo con ?? Accession Number(s): [id number] ? cc: Winston Boykin MD; Koki Vu [...] DD/ 0955 ? TD/TT: 10/21/24 1020 ? [place]erry Pilot: ? Procedure Note [place], Image - 10/22/2024 [place] [address] Magnetic Resonance Report Signed Patient: Kvng Ramon EMR#: [id number] : 1965Acct:[id number] Age/Sex: 59 / MADM Date: 10/21/24 Loc: HO.MRI Attending Dr: Winston Boykin MD Ordering Physician: Winston Boykin MD Date of Service: 10/21/24 Procedure(s): MR lumbar spine wo con Accession Number(s): [id number] cc: Winston Boykin MD; Koki Vu MD [...] 10/22/24 1542 DD/ 0955 TD/TT: 10/21/24 1020 Ferry Pilot: [facility] External Provider IMG MRI PROCEDURES Final Result * Hepatitis Panel, General (08/13/2024 11:49 AM EST) Hepatitis A IgM Nonreactive Nonreactive [facility] Comment:IgM antibodies to TORREZ V not detected; does not exclude earlyacute or recovered HAV infection. ~Hepatitis B Surface Antibody NONREACTIVE Nonreactive [facility] Comment:Nonreactive: < 8.00 mIU/mL Hepatitis B Core Antibody Nonreactive Nonreactive [facility] Hepatitis C Antibody Nonreactive Nonreactive [facility] Comment:Antibodies to HCV no t detected; does not exclude early acuteHCV infection. Hepatitis B Surface Ag Negative Negative [facility] 08/13/2024 11:4 9 AM EST 08/13/2024 11:49 AM EST Generic External Data Provider LAB BLOOD ORDERAB LES Final Result [facility] [address] [place] [phone] * Cologuard?? colon cancer screening (08/10/2023 3:59 PM EDT) Cologuard Result Negative Negative 08/17/20 9:57 AM [facility] (CLIA #:[id number]) Comment: NEGATIVE TEST RESULT. A negative Cologuard [...] cancer. ??Following a negative Cologuard result, the [place] Cancer Society and U.S. Multi-Society Task Force screening guidelines recommend a Cologuard re-screening interval of 3 years. References: [place] [employer] Society Guideline for Colorectal Cancer Screening: https://www.cancer.org/cancer/wsklh-kzkpcq-ovucxf/aniothuod-liqwpdtbz-mvlrjyl/ac s-rec ommendations.html.; Delroy MULLIGAN, Rere OTERO, Guy RochaK, Colorectal Cancer Screening: Recommendations for Physicians and Patients from the U.S. Multi-Society Task Force on Colorectal Cancer Screening , Am J Gastroenterology 2017; 112:6040-7105. TEST DESCRIPTION: Composite algorithmic analysis of stool [...] (Harris Albarran al, N Engl J Med 2014;370(14):6988-7898.) Cologuard may produce a false negative or false positive result (no colorectal cancer or precancerous polyp present at colonoscopy follow up). A negative Cologuard test result does not guarantee the absence of CRC or advanced adenoma (pre-cancer). The current Cologuard screening interval is every 3 years. ([place] Cancer Society and U.S. Multi-Society Task Force). Cologuard performance data in a 10,000 patient pivotal study using colonoscopy as the reference method can be accessed at the following location: www.SwingShot/results. Additional description of the Cologuard test process, warnings and precautions can be found at www.Aphriard.com. Stool specimen (specimen) 08/10/2023 3:59 PM EDT 08/11/2023 6:19 PM EDT us Koki Vu MD LAB MOLECULAR DIAGNOSTICS ORD ERABLES Final Result [facility] (CLIA #:[id number]) [place] [address], * Hemoglobin A1c (05/15/2023 12:13 PM EDT) Hemoglobin A1c 5.7 % [facility] Comment:Hemoglobin A1C Refer ence Range Adults: 4.8 - 6.0 % Non diabetic: < 6.0 % Goal: < 7.0 %Additional Action Suggested: > 8.0 %Note: Hemoglobin A1c results are invalid for patients with abnormal amounts of HbF. Blood transfusions may impact the HbA1c concentration in the patient sample. Estimated Average Glucose 117 mg/dL [facility] Comment:eAG = Estimated ave rage glucose which is %A1C expressed asaverage glucose, using the formula of the N9Q-FrkwitjUeacika Glucose study (ADAG), Diabetes Care, Vol.31,#8,Aug. 2007 Blood Venous blood specimen / Unknown 05/15/2023 12:13 PM EDT 05/15/2023 2:16 PM EDT us Koki Vu MD LAB BLOOD ORDERABLES Final Re sult [facility] [address] [place] [phone] * (ABNORMAL) LIPID PANEL, STANDARD (04/15/2022 9:27 AM EDT) Chol/HDLC Ratio 3.8 <5.0 (calc) [facility] Cholesterol, Total 204(H) <200 mg/dL [...] ?? Mo JAY et al. RADHA. 2013;310(19): 2225-2985 ?? (http://education.AMENDIA.Neuralieve/faq/PCB902) Non-HDL Cholesterol 151(H) <130 mg/dL (calc) [facility] Comment: For patients with diabetes plus 1 major ASCVD risk ?? factor, treating to a non-HDL-C goal of <100 mg/dL ?? (LDL-C of <70 mg/dL) is considered a therapeutic ?? option. Triglycerides 109 <150 mg/dL [facility] 04/15/2022 9:27 AM EDT us Koki Vu MD LAB BLOOD ORDERABLES Final Re sult [facility] [address] * Hm Colonoscopy (04/17/2018 6:07 AM EDT) us Historical Provider HEALTH MAINTENANCE Final Result from Last 3 Months or Most Recently Relevant to Health Maintenance [place] [address] C3 Care Teams Warehouse Worker Relationship Specialty Start Date End Date Koki Vu MD [address] [place] [address] PCP - General Family Medicine 10/23/20 Addie Probation And Parole OfficerPlant Technician 06/17/24
--- OUTSIDE RECORDS SUMMARY | 2024-12-03 09:17 | XMS_ITS | Clinical Summary ---
Author Organization [facility] Address [address] [place] [address] Care Team Providers Care Squeezer Operator Name Role Phone Unavailable Primary Care Provider [...] to complete this topic , [address] [place] [address]
--- OUTSIDE RECORDS SUMMARY | 2024-12-03 09:17 | XMS_ITS | Encounter Summary ---
Author Organization [employer] Address [address] [facility] 7t [place] [address] Care Team Providers Care Custom Bookbinder Name Role Phone Koki Vu MD Primary Care Provider [phone] Reason for Visit * Reason Onset Date Comments Durable Medical Equipment 02/07/2024 Encounter Details Date Type Department Care Team ([facility] st Contact Info) Description 02/07/2024 Telephone [facility] MED & PEDS [address] [place] [address] Koki Vu MD [address] [place] [address] Durable Medical Equipment Social History Tobacco Use [...] documented as of this encounter Care Teams Custom Bookbinder Relationship Specialty Start Date End Date Koki Vu MD [address] [place] [address] PCP - General Family Medicine 10/23/20 Addie Senior Safety Support ManagerMen'S Designer 06/17/24 documented as of this encounter
--- OUTSIDE RECORDS SUMMARY | 2024-12-03 09:17 | XMS_ITS | Encounter Summary ---
Author Organization [employer] Address [address] [facility] 7t [place] [address] Care Team Providers Care Livestock Trucker Name Role Phone Koki Vu MD Primary Care Provider [phone] Reason for Visit * Reason Onset Date Comments Nurse Triage 11/20/2024 Encounter Details Date Type Department Care Team ([facility] st Contact Info) Description 11/20/2024 Telephone [facility] [address] [place] [address] Koki Vu MD [address] [place] [address] Nurse Triage Social History Tobacco Use Types [...] 11/20/2024 1:17 PM EST Triage call with [place] Mediayaniv WillisBrick Kiln Burner [place] [id number], Dinah. Pt reports [place] [facility]. Since that time [...] documented as of this encounter Care Teams Livestock Trucker Relationship Specialty Start Date End Date Koki Vu MD [address] [place] [address] PCP - General Family Medicine 10/23/20 Addie Ui Developer DesignerPower Distribution Engineer 06/17/24 documented as of this encounter
[2024-12-03 10:06] VITALS: BP 157/97; PULSE 66; O2SAT 97
== END 2024-12-03 10:15 | disposition home or self-care (01) ==
LOC: HO.PMCPRC 08:43
PROVIDERS: PCP Family Medicine; Visit Provider Anesthesiology
DX: M47.812 Spondylosis without myelopathy or radiculopathy, cervical region (principal)
CPT/HCPCS: 64490; 64491

== ENCOUNTER 2024-12-10 08:53 | Outpatient (REF) | payer MEDICAID, SELFPAY ==
--- OUTSIDE RECORDS SUMMARY | 2024-12-10 09:37 | XMS_ITS | Encounter Summary ---
Author Organization [employer] Address [address] [facility] [address] 7t [place] [address] Care Team Providers Care Pilling Machine Operator Name Role Phone Koki Vu MD Primary Care Provider [phone] Encounter Details Date Type Department Care Team (Late st Contact Info) Description 11/28/2024 9:40 AM EST Office Visit [facility] [address] [place] [address] [phone] Starr Escobar MD [address] [place], [place] [phone] Atopic dermatitis in adult (Primary Dx); Chronic [...] documented as of this encounter Care Teams Pilling Machine Operator Relationship Specialty Start Date End Date Koki Vu MD [address] [place] [address] PCP - General Family Medicine 10/23/20 Addie Telephone Service RepresentativeBackground Check Coordinator 06/17/24 documented as of this encounter
--- OUTSIDE RECORDS SUMMARY | 2024-12-10 09:37 | XMS_ITS | Clinical Summary ---
Author Organization [facility] Address [address] [place] [address] Care Team Providers Care Orthotic And Prosthetic Technician Name Role Phone Jessica Rogers MD Primary Care Provider [phone] Social History Tobacco Use Types Packs/Day Years [...] age to complete this topic Care Teams Orthotic And Prosthetic Technician Relationship Specialty Start Date End Date Jessica Rogers MD [address] [place] [address] [phone] PCP - General General Surgery 09/22/21
--- OUTSIDE RECORDS SUMMARY | 2024-12-10 09:37 | XMS_ITS | Encounter Summary ---
Author Organization [employer] Address [address] [facility] 7t [place] [address] Care Team Providers Care Bowl Sander Name Role Phone Koki Vu MD Primary Care Provider [phone] Encounter Details Date Type Department Care Team ([facility] st Contact Info) Description 11/22/2024 8:30 AM EST Office Visit [facility] [address] [place], [place] [phone] Tirso Mayfield MD [address] [place] [address] Psoriatic arthritis (CMS/HCC) (Primary Dx) Social History [...] documented as of this encounter Care Teams Bowl Sander Relationship Specialty Start Date End Date Koki Vu MD [address] [place] [address] PCP - General Family Medicine 10/23/20 Addie International Account ExecutiveLaser Engineer 06/17/24 documented as of this encounter
--- OUTSIDE RECORDS SUMMARY | 2024-12-10 09:37 | XMS_ITS | Clinical Summary ---
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 Psoriatic arthritis [...] f w psychiatrist and therapist at [facility] ---advised to continue care and may need eval if meds can be adjusted Encounters Date Type Department Care Team Description 09/27/2024 10:50 AM EST Follow-Up [facility] [address] [place] [address] Supervisor Mill: Satinder Sanders, DO Dyspnea on exertion (Primary Dx); Moderate persistent asthma without complication 09/24/2024 Telephone [facility] [address] [place] [address] Supervisor Mill: Katiana Pandya MA from Last 3 Months Immunizations Immunization Administration Dates Next Due Hepatitis A Vaccine, Adult Dosage 08/14/2019 Hepatitis B adult (ENGERIX-B ADULT) vaccine 1 mL IM 08/14/2019 Influenza, Injectable, Quadr ivalent, Contains Preservative 09/06/2018,12/11/2017 Influenza, Injectable, Quadr ivalent, Preservative Free 07/31/2023,07/02/2021,08/26/2020,2018 Pneumococcal Conjugate Vacci ne, 13 Valent 06/07/2019 Pneumococcal conjugate PCV20,polysaccharide [id number] conjugate, adjuvant, PF (Prevnar 20) 02/01/2024 RSV, [...] 07/02/2021, Additional history exists Insurance Care Teams Finishing Wire Sawyer Relationship Specialty Start Date End Date Koki Vu [address] [place] [phone] PCP - General 12/26/23
--- OUTSIDE RECORDS SUMMARY | 2024-12-10 09:37 | XMS_ITS | Encounter Summary ---
Author Organization [employer] Address 75 [facility] 7t [place] [address] Care Team Providers Care Er Rn Name Role Phone Koki Vu MD Primary Care Provider [phone] Reason for Visit * Reason Onset Date Comments Durable Medical Equipment 02/07/2024 Encounter Details Date Type Department Care Team ([facility] st Contact Info) Description 02/07/2024 Telephone [facility] [address] [place] [address] Koki Vu MD [address] [place] [address] Durable Medical Equipment Social History Tobacco Use [...] documented as of this encounter Care Teams Er Rn Relationship Specialty Start Date End Date Koki Vu MD [address] [place] [address] PCP - General Family Medicine 10/23/20 Addie Senior Storage AdministratorWater Treatment Plant Repairer 06/17/24 documented as of this encounter
--- OUTSIDE RECORDS SUMMARY | 2024-12-10 09:37 | XMS_ITS | Encounter Summary ---
Author Organization [employer] Address [address] [facility] 7t [place] [address] Care Team Providers Care Assistant Production Editor Name Role Phone Koki Vu MD Primary Care Provider [phone] Reason for Visit * Reason Onset Date Comments Nurse Triage 11/20/2024 Encounter Details Date Type Department Care Team ([facility] st Contact Info) Description 11/20/2024 Telephone [facility] & [facility]EDS [address] [place] [address] Koki Vu MD [address] [place] [address] Nurse Triage Social History Tobacco Use Types [...] 11/20/2024 1:17 PM EST Triage call with [employer] Fourthyaniv WillisAirport Representative ID [id number], Dinah. Pt reports last [place] 06/24/25 [place] [facility] [place]hand [place]. Since that [...] documented as of this encounter Care Teams Assistant Production Editor Relationship Specialty Start Date End Date Koki Vu MD [address] [place] [address] PCP - General Family Medicine 10/23/20 Addie Unit EducatorCook Soup 06/17/24 documented as of this encounter
--- OUTSIDE RECORDS SUMMARY | 2024-12-10 09:37 | XMS_ITS | Clinical Summary ---
Author Organization [employer] Address [address] [place] [address] 7t [place] [address] Care Team Providers Care Warranty Administrator Name Role Phone Koki Vu MD Primary Care Provider [phone] Allergies No known active allergies Medications lactulose (Chronulac) 10 GM/15ML solution Take 30 mL by mouth in the morning. Active acetaminophen (Tylenol 8 Hour) 650 MG ER tablet Take 1 tablet by mouth every 8 (eight) hours. 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 Assessment & [...] Department Care Team Description 12/01/2024 Refill [facility] [address] [place] [address] Koki Vu MD 11/29/2024 Orders Only GENERIC EXTERNAL DATA DEPARTMENT Provider, Generic External Data 11/28/2024 9:40 AM EST Office Visit [facility] [address] [facility] [address] Starr Escobar MD Atopic dermatitis in adult (Primary Dx); Chronic migraine without aura without status migrainosus, not intractable 11/22/2024 8:30 AM EST Office Visit [facility] [address] [place] [address] Tirso Mayfield MD Psoriatic arthritis ([facility]) (Primary Dx) 11/22/2024 Travel 11/20/2024 Telephone [facility] [address] [place] [address] Koki Vu MD Nurse Triage 10/21/2024 Orders Only [facility] External Provider, [facility] 09/27/2024 Telephone [facility] [address] [place] [address] Koki Vu MD 09/19/2024 Refill [facility] [address] [place] [address] Koki Vu MD from Last 3 Months [...] Procedure Name Priority Date/Time Associated Diagnosis Comments RAST ALLERGEN (NON ORDERABLE) Routine 11/29/2024 11:57 AM EST MR LUMBAR SPINE WO CONTRAST Routine 10/21/2024 [...] Recently Relevant to Health Maintenance Results * Rast Allergen (11/29/2024 11:57 AM EST) Rast Allergen SEE NOTE [facility] Comment:SEE SCANNED RESULTS IN EMR 11/29/2024 11:5 7 AM EST 11/29/2024 11:57 AM EST us Generic External Data Provider HISTORICAL/NON OR DERABLE LABS Final Result [facility] [address] [place] [phone] * MR Lumbar Spine w/o Contrast (10/21/2024 9:55 AM EST) Anatomical Region Laterality Modality Spine, L-spine Magnetic Resonan ce 10/21/2024 9:55 AM EST Narrative 10/22/2024 3:45 PM EST ? [facility] ?[address] ?[place] [address] ? Magnetic Resonance Report ? Signed ? Patient: [place] Elkins,Kvng E ?MR#: [id number] ?? [id number] ? : 1965 ?Acct:[id number] ? Age/Sex: 59 / M ?ADM Date: 10/21/24 ? Loc: HO.MRI ? Attending Dr: Winston Boykin MD ? Ordering Physician: Winston Boykin MD ?? Date of Service: 10/21/24 ?? Procedure(s): MR lumbar spine wo con ?? Accession Number(s): [id number] ? cc: Winston Boykin MD; Koki Vu [...] DD/ 0955 ? TD/TT: 10/21/24 1020 ? Highway Inspector: ? Procedure Note Donviniter, Image - 10/22/2024 [place] [address] Magnetic Resonance Report Signed Patient: Kvng Ramon EMR#: [id number] : 1965Acct:[id number] Age/Sex: 59 / MADM Date: 10/21/24 Loc: HO.MRI Attending Dr: Winston Boykin MD Ordering Physician: Winston Boykin MD Date of Service: 10/21/24 Procedure(s): MR lumbar spine wo con Accession Number(s): [id number] cc: Winston Boykin MD; Koki Vu MD [...] 10/22/24 1542 DD/ 0955 TD/TT: 10/21/[address] Inspector: [facility] External Provider IMG MRI PROCEDURES Final Result * Hepatitis Panel, General (08/13/2024 11:49 AM EST) Hepatitis A IgM Nonreactive Nonreactive [facility] Comment:IgM antibodies to TORREZ V not detected; does not exclude earlyacute or recovered HAV infection. ~Hepatitis B Surface Antibody NONREACTIVE Nonreactive [facility] Comment:Nonreactive: < 8.00 mIU/mL Hepatitis B Core Antibody Nonreactive Nonreactive [facility] Hepatitis C Antibody Nonreactive Nonreactive [facility] Comment:Antibodies to HCV no t detected; does not exclude early acuteHCV infection. Hepatitis B Surface Ag Negative Negative [facility] 08/13/2024 11:4 9 AM EST 08/13/2024 11:49 AM EST us Generic External Data Provider LAB BLOOD ORDERAB LES Final Result [facility] [address] [place] [phone] * Cologuard?? colon cancer screening (08/10/2023 3:59 PM EDT) Cologuard Result Negative Negative 08/17/20 9:57 AM EST [facility] (CLIA #:[id number]) Comment: NEGATIVE TEST RESULT. A negative Cologuard [...] (Harris Albarran al, N Engl J Med 2014;370(14):1286- 1297) The normal value (reference range) for this assay is negative. COLOGUARD RE-SCREENING RECOMMENDATION: Periodic colorectal cancer screening is an important part of preventive healthcare for asymptomatic individuals at average risk for colorectal cancer. ??Following a negative Cologuard result, the [place] Cancer Society and U.S. Multi-Society Task Force screening guidelines recommend a Cologuard re-screening interval of 3 years. References: [place] [employer] Guideline for Colorectal Cancer Screening: https://www.cancer.org/cancer/kksrg-jodofp-ewhnqh/xpxbhqwca-amoiikgdj-vhdexrf/ac s-rec ommendations.html.; Delroy DK, Rere OTERO, Guy RochaK, Colorectal Cancer Screening: Recommendations for Physicians and Patients from the U.S. Multi-Society Task Force on Colorectal Cancer Screening , Am J Gastroenterology 2017; 112:8317-1975. TEST DESCRIPTION: Composite algorithmic analysis of stool [...] (Harris Albarran al, N Engl J Med 2014;370(14):7915-1085.) Cologuard may produce a false negative or false positive result (no colorectal cancer or precancerous polyp present at colonoscopy follow up). A negative Cologuard test result does not guarantee the absence of CRC or advanced adenoma (pre-cancer). The current Cologuard screening interval is every 3 years. ([place] Cancer Society and U.S. Multi-Society Task Force). Cologuard performance data in a 10,000 patient pivotal study using colonoscopy as the reference method can be accessed at the following location: www.[employer].Raynforest/results. Additional description of the Cologuard test process, warnings and precautions can be found at www.Lush Technologiesrd.com. Stool specimen (specimen) 08/10/2023 3:59 PM EDT 08/11/2023 6:19 PM EDT Koki Vu MD LAB MOLECULAR DIAGNOSTICS ORD ERABLES Final Result [facility] (CLIA #:[id number]) [place] [address], * Hemoglobin A1c (05/15/2023 12:13 PM EDT) Hemoglobin A1c 5.7 % [facility] Comment:Hemoglobin A1C Refer ence Range Adults: 4.8 - 6.0 % Non diabetic: < 6.0 % Goal: < 7.0 %Additional Action Suggested: > 8.0 %Note: Hemoglobin A1c results are invalid for patients with abnormal amounts of HbF. Blood transfusions may impact the HbA1c concentration in the patient sample. Estimated Average Glucose 117 mg/dL [facility] Comment:eAG = Estimated ave rage glucose which is %A1C expressed asaverage glucose, using the formula of the B8F-YjwijwqNgzqznk Glucose study (ADAG), Diabetes Care, Vol.31,#8,May. 2007 Blood Venous blood specimen / Unknown 05/15/2023 12:13 PM EDT 05/15/2023 2:16 PM EDT us Koki Vu MD LAB BLOOD ORDERABLES Final Re sult [facility] [address] [place] [address] [phone] * (ABNORMAL) LIPID PANEL, STANDARD (04/15/2022 [...] ?? Mo JAY et al. RADHA. 2013;310(19): 5817-0477 ?? (http://Gumhouse.AlephD/faq/QPL920) Non-HDL Cholesterol 151(H) <130 mg/dL (calc) [facility] Comment: For patients with diabetes plus 1 major ASCVD risk ?? factor, treating to a non-HDL-C goal of <100 mg/dL ?? (LDL-C of <70 mg/dL) is considered a therapeutic ?? option. Triglycerides 109 <150 mg/dL [facility] 04/15/2022 9:27 AM EDT Koki Vu MD LAB BLOOD ORDERABLES Final Re sult [facility] [address] * Hm Colonoscopy (04/17/2018 6:07 AM EDT) Historical Provider HEALTH MAINTENANCE Final Result from Last 3 Months or Most Recently Relevant to Health Maintenance Insurance Care Teams Warranty Administrator Relationship Specialty Start Date End Date Koki Vu MD [address] [place] [phone] PCP - General Family Medicine 10/23/20 Addie Agency Legal CounselHead Of Partner Development 06/17/24
--- OUTSIDE RECORDS SUMMARY | 2024-12-10 09:37 | XMS_ITS | Referral Summary ---
Author Organization [facility] Address [address] [place] [address] Care Team Providers Care Field Assistant Name Role Phone VuKoki Primary Care Provider [phone] Encounters Date Type Department Care Team Description 09/27/2024 10:50 AM EST Follow-Up [facility] [address] [place] [phone] Senior Applications Architect: Satinder Sanders, Dyspnea on exertion (Primary Dx); Moderate persistent asthma without complication 09/24/2024 Telephone [facility] [address] [place] [phone] Senior Applications Architect: Katiana Pandya MA from Last 3 Months [...] 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 Psoriatic arthritis [...] Already f w psychiatrist and therapist at [facility] ---advised to continue care and may need eval if meds can be adjusted Immunizations Immunization Administration Dates Next Due Hepatitis A Vaccine, Adult Dosage 08/14/2019 Hepatitis B adult (ENGERIX-B ADULT) vaccine 1 mL IM 08/14/2019 Influenza, Injectable, Quadr ivalent, Contains Preservative 09/06/2018,12/11/2017 Influenza, Injectable, Quadr ivalent, Preservative Free 07/31/2023,07/02/2021,08/26/2020,2018 Pneumococcal Conjugate Vacci ne, 13 Valent 06/07/2019 Pneumococcal conjugate PCV20,polysaccharide [id number] conjugate, adjuvant, PF (Prevnar 20) 02/01/2024 RSV, [...] Not on file Insurance Care Teams Field Assistant Relationship Specialty Start Date End Date Koki Vu [address] [place] [address] PCP - General 12/26/23
--- OUTSIDE RECORDS SUMMARY | 2024-12-10 09:37 | XMS_ITS | Encounter Summary ---
Author Organization [employer] Address [address] [facility] 7t [place] [address] Care Team Providers Care Enrollment Counselor Name Role Phone Koki Vu MD Primary Care Provider [phone] Reason for Visit * Reason Comments Med Refill Encounter Details Date Type Department Care Team ([facility] st Contact Info) Description 12/01/[address] [facility] & PEDS [address] [place], [place] [phone] Koki Vu MD [address] [place] [address] Social History Tobacco Use Types Packs/Day Years [...] documented as of this encounter Care Teams Enrollment Counselor Relationship Specialty Start Date End Date Koki Vu MD [address] [place] [phone] PCP - General Family Medicine 10/23/20 Addie Membership SecretaryLand Department Head 06/17/24 documented as of this encounter
--- OUTSIDE RECORDS SUMMARY | 2024-12-10 09:37 | XMS_ITS | Encounter Summary ---
Author Organization [employer] Address [address] [facility] [address] 7t [place] [address] Care Team Providers Care Supervisor Farm Equipment Maintenance Name Role Phone Koki Vu MD Primary Care Provider [phone] Encounter Details Date Type Department Care Team [...] as of this encounter Care Teams Supervisor Farm Equipment Maintenance Relationship Specialty Start Date End Date Koki Vu MD [address] [place] [address] PCP - General Family Medicine 10/23/20 Addie Centrifugal Chiller TechnicianClient Services Assistant 06/17/24 documented as of this encounter
--- OUTSIDE RECORDS SUMMARY | 2024-12-10 09:37 | XMS_ITS | Encounter Summary ---
Author Organization [employer] Address [address] [facility] 7t [place] [address] Care Team Providers Care Release Of Information Specialist Name Role Phone Koki Vu MD Primary Care Provider [phone] Encounter Details Date Type Department Care Team (Late st Contact Info) Description 11/29/2024 Orders Only GENERIC EXTERNAL DATA DEPARTMENT Provider, Generic External Data Social History Tobacco Use Types Packs/Day Years [...] (NON ORDERABLE) Routine 11/29/2024 11:57 AM EST documented in this encounter Results * Rast Allergen (11/29/2024 11:57 AM EST) Rast Allergen SEE NOTE [facility] Comment:SEE SCANNED RESULTS IN EMR 11/29/2024 11:5 7 AM EST 11/29/2024 11:57 AM EST us Generic External Data Provider HISTORICAL/NON OR DERABLE LABS Final Result Performing Organization Address City/State/[facility] Co de Phone Number [facility] [address] [place] [phone] documented in this encounter Visit Diagnoses Not on filedocumented in this encounter Additional Health Concerns Assessment Noted Time PHQ-9 Depression Total Score: 17 023 11:11 AM EDT documented as of this encounter Care Teams Release Of Information Specialist Relationship Specialty Start Date End Date Koki Vu MD [address] [place] [address] PCP - General Family Medicine 10/23/20 Addie Husker OperatorPlatinumsmith 06/17/24 documented as of this encounter
--- OUTSIDE RECORDS SUMMARY | 2024-12-10 09:37 | XMS_ITS | Encounter Summary ---
Author Organization [employer] Address [address] [facility] [address] 7t [place] [address] Care Team Providers Care Sugar Cane Planting Equipment Operator Name Role Phone Koki Vu MD Primary Care Provider [phone] Encounter Details Date Type Department Care Team (Late st Contact Info) Description 02/05/2024 Orders Only [facility] [address] [place] [address] Provider, MD Nasima Social History Tobacco Use Types Packs/Day Years Used Date Smoking Tobacco: Never Passive Smoke Exposure: Never Smokeless Tobacco: Never Alcohol Use Standard Drinks/Week Comments Never 0 (1 standard drink = 0.6 oz pur e alcohol) Depression Answer Date Recorded Patient Health Questionnaire-9 Score 17 07/04/2023 Housing Stability Answer Date Recorded What is your housing situation today? I have emndy chan 07/27/[address] you [...] documented as of this encounter Care Teams Sugar Cane Planting Equipment Operator Relationship Specialty Start Date End Date Koki Vu MD [address] [place] [phone] PCP - General Family Medicine 10/23/20 Addie Loop TackerChief Legal Officer 06/17/24 documented as of this encounter
--- OUTSIDE RECORDS SUMMARY | 2024-12-10 09:38 | XMS_ITS | Encounter Summary ---
Author Organization [employer] Address [address] [facility] 7t [place] [address] Care Team Providers Care Database Architect Name Role Phone Koki Vu MD Primary Care Provider [phone] Reason for Visit * Reason Comments Med Refill Encounter Details Date Type Department Care Team ([facility] st Contact Info) Description 10/25/2023 Refill [facility] [address] [place], [place] [phone] Koki Vu MD [address] [place] [address] Social History Tobacco Use Types Packs/Day Years [...] documented as of this encounter Care Teams Database Architect Relationship Specialty Start Date End Date Koki Vu MD [address] [place] [phone] PCP - General Family Medicine 10/23/20 Addie Manager UiStereo Operator 06/17/24 documented as of this encounter
--- OUTSIDE RECORDS SUMMARY | 2024-12-10 09:38 | XMS_ITS | Encounter Summary ---
Author Organization [employer] Address 75 [facility] 7t [place] [address] Care Team Providers Care Research Librarian Name Role Phone Koki Vu MD Primary Care Provider [phone] Reason for Visit * Reason Comments Med Refill Encounter Details Date Type Department Care Team ([facility] st Contact Info) Description 10/25/2023 Refill [facility] MED & PEDS [address] [place], [place] [phone] Koki Vu MD 505 [place] [address] Social History Tobacco Use Types Packs/Day Years [...] documented as of this encounter Care Teams Research Librarian Relationship Specialty Start Date End Date Koki Vu MD [address] [place] [phone] PCP - General Family Medicine 10/23/20 Addie Senior Risk AnalystAlcohol Rubber 06/17/24 documented as of this encounter
--- OUTSIDE RECORDS SUMMARY | 2024-12-10 09:38 | XMS_ITS | Clinical Summary ---
Author Organization [facility] Address [address] [place] [address] Care Team Providers Care Senior It Auditor Name Role Phone Unavailable Primary Care Provider [...] to complete this topic , [address] [place] [address]
--- OUTSIDE RECORDS SUMMARY | 2024-12-10 09:38 | XMS_ITS | Encounter Summary ---
Author Organization [employer] Address [address] [facility] [address] 7t [place] [address] Care Team Providers Care Bobbin Collector Name Role Phone Koki Vu MD Primary Care Provider [phone] Encounter Details Date Type Department Care Team (Late st Contact Info) Description 08/23/2023 Abstract [facility] MEDICINE [address] [place] [address] Koki Vu MD [address] [place] [address] Social History Tobacco Use Types Packs/Day Years [...] documented as of this encounter Care Teams Bobbin Collector Relationship Specialty Start Date End Date Koki Vu MD [address] [place] [address] PCP - General Family Medicine 10/23/20 Addie Metal SmelterRegional Airline Pilot 06/17/24 documented as of this encounter
--- OUTSIDE RECORDS SUMMARY | 2024-12-10 09:38 | XMS_ITS | Encounter Summary ---
Author Organization [employer] Address 75 [facility] [address] [address] Care Team Providers Care Waistband Setter Name Role Phone Koki Vu MD Primary Care Provider [phone] Reason for Referral * Consultation (Routine) - Closed Specialty Diagnoses / Procedures Referred By Contac t Referred To Contact Rheumatology Diagnoses Erosion of bone Tirso Mayfield MD [address] [place] [address] Phone: tel: fax: [facility] [address] Phone: tel: fax: Referral ID Status Reason Start Date Expiration Date V isits Requested Visits Authorized [id number] Closed Specialty Services Required 08/02/2024 08/02/2025 1 1 Encounter Details Date Type Department Care Team (Late st Contact Info) Description 08/02/2024 Orders Only [facility] MED & PEDS [address] [place] [address] Tirso Mayfield MD [address] [place] [address] Erosion of bone (Primary Dx) Social History [...] AM EDT) Rheumatoid Factor <13.0 <15.0 IU/mL [facility] Blood Venous blood specimen / Unknown 08/08/2024 10:40 AM EDT 08/08/2024 1:17 PM EDT Tirso Jara MD LAB BLOOD ORDERABL ES Final Result Performing Organization Address [facility] de Phone Number [facility] [address] [place] [phone] * Cyclic Citrullinated Peptide (CCP) Antibody (IgG) (08/08/2024 10:40 AM EDT) Cyclic Citrullinated Peptide <16 UNITS [facility] Comment:Reference RangeNegat shalmo: <20Weak Positive: 20-39Moderate Positive: 40-59Strong Positive: >59THIS TEST WAS PERFORMED AT:[facility] [place] [id number] RECINOS MD Blood Venous blood specimen / Unknown 08/08/2024 10:40 AM EDT 08/08/2024 1:17 PM EDT Tirso Jara MD LAB BLOOD ORDERABL ES Final Result Performing Organization Address [facility] de Phone Number [facility] [address] [place] [phone] documented in this encounter Visit Diagnoses Diagnosis Erosion of bone- Primary documented in this encounter Additional Health Concerns Assessment Noted Time PHQ-9 Depression Total Score: 17 023 11:11 AM EDT documented as of this encounter Care Teams Waistband Setter Relationship Specialty Start Date End Date Koki Vu MD [address] [place] [address] PCP - General Family Medicine 10/23/20 Addie Service PorterCommunity Organization Director 06/17/24 documented as of this encounter
--- OUTSIDE RECORDS SUMMARY | 2024-12-10 09:38 | XMS_ITS | Encounter Summary ---
Author Organization [employer] Address [address] [facility] [address] 7t [place] [address] Care Team Providers Care Administrative Services Manager Name Role Phone Koki Vu MD Primary Care Provider [phone] Encounter Details Date Type Department Care Team ([facility] st Contact Info) Description 09/27/2024 Telephone [facility] CH[facility] MED & PEDS [address] [place], [place] [phone] Koki Vu MD [address] [place] [address] Social History Tobacco Use Types Packs/Day Years [...] discuss further medical options. Best contact # [phone]. documented in this encounter Plan of Treatment Not on file documented as of this encounter Visit Diagnoses Not on filedocumented in this encounter Additional Health Concerns Assessment Noted Time PHQ-9 Depression Total Score: 17 023 11:11 AM EDT documented as of this encounter Care Teams Administrative Services Manager Relationship Specialty Start Date End Date Koki Vu MD [address] [place] [address] PCP - General Family Medicine 10/23/20 dAdie Cone WinderPrototype Fabricator 06/17/24 documented as of this encounter
--- OUTSIDE RECORDS SUMMARY | 2024-12-10 09:38 | XMS_ITS | Encounter Summary ---
Author Organization [employer] Address 75 [facility] 7t [place] [address] Care Team Providers Care Boiler Cleaner Name Role Phone Koki Vu MD Primary Care Provider [phone] Reason for Visit * Reason Comments Med Refill Encounter Details Date Type Department Care Team ([facility] st Contact Info) Description 03/28/2024 Refill [facility] CH[facility] MED & PEDS [address] [place], [place] [phone] Koki Vu MD [address] [place] [address] Social History Tobacco Use Types Packs/Day Years [...] documented as of this encounter Care Teams Boiler Cleaner Relationship Specialty Start Date End Date Koki Vu MD [address] [place] [phone] PCP - General Family Medicine 10/23/20 Addie Video PhotographerStock Receiver 06/17/24 documented as of this encounter
[2024-12-10 11:04] LABS: MANUAL DIFF FLAG NO
[2024-12-10 11:07] LABS: Basophils Percent Auto 0.4 % (0-2); Eosinophils Absolute Auto 0.2 X10*3/uL (0.0-0.4); Eosinophils Percent Auto 1.8 % (0-4); Hematocrit 43.6 % (42.0-52.0); Hemoglobin 14.6 g/dl (14.0-18.0); Imm Gran Abs Auto 0.02 X10*3/uL (0.00-0.03); Imm Gran Pct Auto 0.2 % (0.0-0.4); Lymphocytes Absolute Auto 4.6 X10*3/uL (1.2-4.9); Lymphocytes Percent Auto 53.8 % (20-40); Mean Corpuscular HGB Conc 33.5 g/dl (31.0-36.0); Mean Corpuscular Hemoglobin 30.5 pg (27.0-33.0); Mean Corpuscular Volume 91.2 fL (80.0-98.0); Mean Platelet Volume 9.2 fL (9.4-12.4); Monocytes Absolute Auto 0.8 X10*3/uL (0.1-1.2); Monocytes Percent Auto 8.9 % (2-11); Neutrophils Percent Auto 34.9 % (45-73); Platelet Count 265 X10*3/uL (160-400); Red Blood Count 4.78 X10*6/uL (4.60-5.80); Red Cell Distribution Width 13.4 % (11.0-16.0); White Blood Count 8.6 X10*3/uL (4.8-10.8)
[2024-12-10 11:19] LABS: Alanine Aminotransferase 31 U/L (0-40); Albumin Level 4.2 g/dL (3.5-5.0); Alkaline Phosphatase 81 U/L (39-117); Anion Gap 9 (12-20); Aspartate Amino Transferase 29 U/L (5-37); Bilirubin Total 0.4 mg/dL (0.0-1.0); Blood Urea Nitrogen 14 mg/dL (9-16); C Reactive Protein 0.12 mg/dL (< or = 0.50); Carbon Dioxide 30 mmol/L (22-29); Chloride 106 mmol/L (96-108); Estimated Glomerular Filt Rate > 60; Glucose Random 106 mg/dL (60-115); Potassium 3.9 mmol/L (3.3-5.1); Sodium 141 mmol/L (135-145); Total Protein 7.5 g/dL (6.5-8.0)
[2024-12-10 11:42] LABS: HBc Num1 0.15 S/CO (0.00-0.79); HBsAGNum1 0.23 S/CO (0.00-0.99); Hepatitis A Antibody IgM 0.14 Index (0-0.79); Hepatitis B Core Antibody Nonreactive (Nonreactive); Hepatitis B Surface Antigen Negative (Negative); ~HepC Num1 0.14 S/CO (0.00-0.79); ~Hepatitis A Antibody IgM Nonreactive (Nonreactive); ~Hepatitis B Surface Antibody NONREACTIVE (Nonreactive); ~Hepatitis C Antibody Nonreactive (Nonreactive)
== END 2024-12-10 08:54 | disposition home or self-care (01) ==
LOC: HO.10HDL 08:53
PROVIDERS: Visit Provider Student in an Organized Health Care Education/Training Program
DX: L40.50 Arthropathic psoriasis, unspecified (principal)
CPT/HCPCS: 36415; 80053; 85025; 86140; 86704; 86706; 86709; 86803; 87340

== ENCOUNTER 2024-12-12 09:07 | Outpatient (AMB) | payer MEDICAID, SELFPAY ==
--- NOTE | 2024-12-12 09:13 | A.OFFVIS_ITS ---
Vital Signs 12/12/24 09:17 Height 5 ft 3 in Weight 175 lb 8 oz BMI 31.1 BP 137/83 Blood Pressure Location Lt brachial Position Sitting Pulse 82 Pulse Source Pulse Oximeter Pulse Oximetry (%) 97 Oxygen Delivery Method Room Air Intake Visit Reasons: BILATERAL DIAGNOSTIC C2, C3, C4 MBB Intake Note: Pain today 9 Staff Interpreter Required: Yes Staff Interpreter Language: Suppository Molding Machine Operator Name: Niels Accompanied by: Self / Same As Patient Allergies [id number] [From Ajovy Autoinjector] Allergy (Unknown, Verified 12/12/24 09:17) Rash HPI Comments Details: Kvng is Back in my office to discuss treatment of his cervicalgia and occipital headache. he has a trial of C2, C3, C4 bilateral medial branch block, he reports for 1st 3 hours after the procedure almost absence of the pain. After the time the pain started to come back but it was not until 5 hours as strong as the pain he had before the procedure. I offered him sprint PNS C3 bilateral and he agreed to go for the procedure. I will schedule him for this procedure without sedation. He with the lower back pain was in my office for very long period of time. He received multiple procedures including medial branch blocks with no improvements transforaminal epidural steroid injections with no improvements, he went for mild procedure which resulted in no improvement of his pain, he went for a trial of Nevro spinal cord stimulator and reported no more than 30% pain improvement. We tried pain pump trial procedures on him twice once with hydromorphone and once with fentanyl. On both times he reported excellent 100% pain relief in the lower back however he reported significant itching requiring administration of Narcan intranasally. Therefore the effect of the opioid medication was eliminated. 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 Venous congestion Pain in right lower leg Lipoma of scalp Kidney cysts Spondylosis of thoracic spine Spondylosis of lumbar spine Schatzki's ring Fatty liver HTN (hypertension) Pre-diabetes Dysphagia Asthma Hx of chest pain DAYNA on CPAP Hypothyroid Psoriasis Psoriatic arthritis Chronic pain Mood disorder Depression Avascular necrosis Chronic pain syndrome Spondylosis of lumbar region without myelopathy or radiculopathy Spondylosis, cervical Degeneration, intervertebral disc, cervical Surgical History History of back surgery History of surgery Status post excision of lipoma (~10/21/21) Status post cardiac catheterization Hx of cardiac cath H/O neck surgery Hx of hand surgery Hx of endoscopy History of colonoscopy Family History Father Cirrhosis Alcoholism Mother Diabetes HTN (hypertension) Parkinson disease Brother Cirrhosis Alcoholism Social History Household Members: Spouse and Children Are you a primary rn critical care to a significant other at home: No Do you presently have visiting nurse or other home services: No Alcohol intake: never Patient Tobacco Use Status: Former Tobacco user Tobacco use type: Cigarette Second Hand Smoke Exposure: No Current occupational status: disabled Current occupation: rt handed Review of Systems Const All systems reviewed & are unremarkable except as noted in HPI and below Physical Exam Vital Signs: Last Vital Signs Pulse 82 12/12/24 09:17 BP 137/83 12/12/24 09:17 Pulse Ox 97 12/12/24 09:17 Oxygen Delivery Method Room Air 12/12/24 09:17 BMI result Body Mass Index 31.1 Const General: cooperative, healthy appearing, comfortable, well developed, alert and awake Nutritional Appearance: average body habitus Orientation/consciousness: patient oriented x3 Limitations: language barrier Eyes Pupils: Equal, round and reactive pupils present EOM: EOMs intact bilaterally Neck Other: On inspection straightened cervical lordosis. Flexion forward and flexion backwards both aggravate the pain however flexion forward aggravate pain less than flexing backwards. Axial compression aggravates pain. Spurling test is negative bilaterally. Lhermitte test is negative. Neck: No full ROM Chest Chest palpation & inspection: normal inspection of the chest Resp Effort & Inspection: normal respiratory effort, able to speak in complete sentences, normal respiratory pattern, no audible wheezes and no cough Cardio Jugular venous distension: no JVD Back/Spine/Pelvis Other: tenderness on palpation in paraspinal spinal region in lumbar spine. Loading test is positive. Range of motion in lumbar spine is preserved. Quincy test happened to be positive on the right. Stinchfield test is positive on the right. Pelvic destruction test might be positive on the right. Tenderness on palpation in paraspinal spinal regions of upper lumbar spine. Loading test is positive on the right. SLR is positive on the right. Neuro General: patient oriented x3 Cranial nerves: Yes Equal, round and reactive pupils present Psych Speech and movement: Normal speech and movement present Affect: normal affect Attitude: cooperative Results Reviewed Results Reviewed: MRI lumbar spine: 06/24/2021. Findings: Vertebral bodies in paraspinal structures: There is anatomic alignment of the vertebral bodies. There is narrowing of intervertebral disc height at L5-S1. There is a loss of signal from the disc as well as from the disc at L4-5 consistent with disc desiccation. There is mild degenerative endplate contour changes with fatty signal along the superior endplate of L4 and L5. Vertebral body heights are maintained. No fractures are demonstrated. Overall marrow signal is homogeneous. The visualized retroperitoneal and pelvic structures are unremarkable. Conus medullaris and cauda equina. Normal terminating in the level of L1. The lower thoracic spine cord appears normal. The cauda equina nerves and film terminally appear normal. Spinal levels: L1-L2: There is mild bilateral facet arthropathy. Disc contour is normal. There is no central stenosis of foraminal narrowing. L2-L3: There is mild bilateral facet arthropathy. Disc contour is normal. There is no central stenosis of foraminal narrowing. L3-L4: There is mild bilateral facet arthropathy. Disc contour is normal. There is no central stenosis of foraminal narrowing. L4-5: There is moderate bilateral facet arthropathy with ligamentum flavum hypertrophy. There is posterior disc protrusion with left-sided annular tear extending into neural foramina bilaterally without definite exiting nerve root impingement. There is narrowing of the right subarticular recess. There is no central stenosis. L5-S1: There is moderate to severe bilateral facet arthropathy. There is small posterior disc protrusion without significant mass effect on the thecal sac. The neural foramina are patent bilaterally. And there is no central stenosis. Assessment & Plan Assessment & Plan (1) Sacroiliac joint pain: Code(s): M53.3 - Sacrococcygeal disorders, not elsewhere classified Category: Medical (2) Lumbar radiculopathy: Code(s): M54.16 - Radiculopathy, lumbar region Category: Medical (3) Disc degeneration, lumbar: Code(s): M51.36 - Other intervertebral disc degeneration, lumbar region Category: Medical (4) Chronic pain syndrome: Code(s): G89.4 - Chronic pain syndrome Category: Medical (5) Discogenic cervical pain: Code(s): M50.30 - Other cervical disc degeneration, unspecified cervical region Category: Medical (6) Spondylosis of cervical region without myelopathy or radiculopathy: Code(s): M47.812 - Spondylosis without myelopathy or radiculopathy, cervical region Category: Medical Plan The neck pain of this patient is predominantly axial and not radiating into the upper extremities. It is most likely facetogenic pain. Very promising results of the bilateral medial branch block C2, C3, C4. See the description as above. I will schedule this patient for bilateral C3 stimulation sprint. Those procedures will be 2 weeks apart. We will return to the issue of his lower back pain when we will deal with his cervicalgia. Coding Level of Care Code Est Pt Level 3 (36929) Diagnoses Sacroiliac joint pain M53.3 Lumbar radiculopathy M54.16 Disc degeneration, lumbar M51.36 Chronic pain syndrome G89.4 Discogenic cervical pain M50.30 Spondylosis of cervical region without myelopathy or radiculopathy M47.812
[2024-12-12 09:17] VITALS: BP 137/83; PULSE 82; O2SAT 97; BMI 31.1
--- OUTSIDE RECORDS SUMMARY | 2024-12-12 10:06 | XMS_ITS | Encounter Summary ---
Author Organization [employer] Address [address] [facility] 7t [place] [address] Care Team Providers Care Credit Relationship Manager Name Role Phone Koki Vu MD Primary Care Provider [phone] Reason for Visit * Reason Onset Date Comments Nurse Triage 11/20/2024 Encounter Details Date Type Department Care Team ([facility] st Contact Info) Description 11/20/2024 Telephone [facility] CHC MED & PEDS [address] [place] [address] Koki Vu MD [address] [place] [address] Nurse Triage Social History Tobacco Use Types [...] encounter Miscellaneous Notes * Telephone Encounter - Carlo Malik RN - 11/20/2024 1:17 PM EST Triage call with Living Indieyaniv WillisSpecial Education Professional [place] [id number], [place]. Pt reports last seen 06/24/25 in [place] for bilateral wrist/hand pain. Since that time [...] documented as of this encounter Care Teams Credit Relationship Manager Relationship Specialty Start Date End Date Koki Vu MD [address] [place] [address] PCP - General Family Medicine 10/23/20 Addie Bus WasherStrap Stitcher 06/17/24 documented as of this encounter
--- OUTSIDE RECORDS SUMMARY | 2024-12-12 10:06 | XMS_ITS | Referral Summary ---
Author Organization [facility] Address [address] [place] [address] Care Team Providers Care Bill Collector Name Role Phone VuKoki Primary Care Provider [phone] Encounters Date Type Department Care Team Description 09/27/2024 10:50 AM EST Follow-Up [facility] [address] [place] [address] Spoilage Worker: Satinder Sanders, Dyspnea on exertion (Primary Dx); Moderate persistent asthma without complication 09/24/2024 Telephone [facility] [address] [place] [address] Spoilage Worker: Katiana Pandya MA from Last 3 [...] reports he needs new TSH border for clinical data specialist referal placed in previous appointment. Psoriatic arthritis [...] Already f w psychiatrist and therapist at [facility] ---advised to continue care and may need eval if meds can be adjusted Immunizations Immunization Administration Dates Next Due Hepatitis A Vaccine, Adult Dosage 08/14/2019 Hepatitis B adult (ENGERIX-B ADULT) vaccine 1 mL IM 08/14/2019 Influenza, Injectable, Quadr ivalent, Contains Preservative 09/06/2018,12/11/2017 Influenza, Injectable, Quadr ivalent, Preservative Free 07/31/2023,07/02/2021,08/26/2020,2018 Pneumococcal Conjugate Vacci ne, 13 Valent 06/07/2019 Pneumococcal conjugate PCV20,polysaccharide [id number] conjugate, adjuvant, PF (Prevnar 20) 02/01/2024 RSV, [...] Treatment Not on file Insurance Care Teams Bill Collector Relationship Specialty Start Date End Date Koki Vu [address] [place] [phone] PCP - General 12/26/23
--- OUTSIDE RECORDS SUMMARY | 2024-12-12 10:06 | XMS_ITS | Clinical Summary ---
Author Organization [facility] Address [address] [place] [address] Care Team Providers Care Obstetrics Specialist Name Role Phone Jessica Rogers MD Primary [...] age to complete this topic Care Teams Obstetrics Specialist Relationship Specialty Start Date End Date Jessica Rogers MD [address] [place] [phone] PCP - General General Surgery 09/22/21
--- OUTSIDE RECORDS SUMMARY | 2024-12-12 10:06 | XMS_ITS | Encounter Summary ---
Author Organization [employer] Address [address] [facility] 7t [place] [address] Care Team Providers Care Office Messenger Name Role Phone Koki Vu MD Primary Care Provider [phone] Reason for Visit * Reason Comments Med Refill Encounter Details Date Type Department Care Team ([facility] st Contact Info) Description 12/01/2024 Refill [facility] CH[facility] MED & PEDS [address] [place], [place] [phone] Koki Vu MD [address] [place] [address] Social History Tobacco Use Types Packs/Day Years [...] documented as of this encounter Care Teams Office Messenger Relationship Specialty Start Date End Date Koki Vu MD [address] [place] [address] PCP - General Family Medicine 10/23/[address] SuperintendentPrinted Circuit Designer 06/17/24 documented as of this encounter
--- OUTSIDE RECORDS SUMMARY | 2024-12-12 10:06 | XMS_ITS | Clinical Summary ---
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 Psoriatic arthritis [...] Already f w psychiatrist and therapist at [facility] ---advised to continue care and may need eval if meds can be adjusted Encounters Date Type Department Care Team Description 09/27/2024 10:50 AM EST Follow-Up [facility] [address] [place] [address] Regional Transfer Liaison: Satinder Sanders, DO Dyspnea on exertion (Primary Dx); Moderate persistent asthma without complication 09/24/2024 Telephone [facility] [address] [place] [address] Regional Transfer Liaison: Katiana Pandya MA from Last 3 Months Immunizations Immunization Administration Dates Next Due Hepatitis A Vaccine, Adult Dosage 08/14/2019 Hepatitis B adult (ENGERIX-B ADULT) vaccine 1 mL IM 08/14/2019 Influenza, Injectable, Quadr ivalent, Contains Preservative 09/06/2018,12/11/2017 Influenza, Injectable, Quadr ivalent, Preservative Free 07/31/2023,07/02/2021,08/26/2020,2018 Pneumococcal Conjugate Vacci ne, 13 Valent 06/07/2019 Pneumococcal conjugate PCV20,polysaccharide [id number] conjugate, adjuvant, PF (Prevnar 20) 02/01/2024 RSV, [...] 07/02/2021, Additional history exists Insurance Care Teams Hog Ribber Relationship Specialty Start Date End Date Koki Vu [address] [place] [address] PCP - General 12/26/23
--- OUTSIDE RECORDS SUMMARY | 2024-12-12 10:06 | XMS_ITS | Encounter Summary ---
Author Organization [employer] Address [address] [facility] 7t [place] [address] Care Team Providers Care Upper And Bottom Lacer Hand Name Role Phone Koki Vu MD Primary Care Provider [phone] Encounter Details Date Type Department Care Team [...] 11:57 AM EST) Rast Allergen SEE NOTE [facility] Comment:SEE SCANNED RESULTS IN EMR 11/29/2024 11:5 7 AM EST 11/29/2024 11:57 AM EST us Generic External Data Provider HISTORICAL/NON OR DERABLE LABS Final Result Performing Organization Address City/State/[facility] Co de Phone Number [facility] [address] [place] [phone] documented in this encounter Visit Diagnoses Not on filedocumented in this encounter Additional Health Concerns Assessment Noted Time PHQ-9 Depression Total Score: 17 023 11:11 AM EDT documented as of this encounter Care Teams Upper And Bottom Lacer Hand Relationship Specialty Start Date End Date Koki Vu MD [address] [place] [address] PCP - General Family Medicine 10/23/20 Addie Campaign SpecialistBlueprint Maker 06/17/24 documented as of this encounter
--- OUTSIDE RECORDS SUMMARY | 2024-12-12 10:07 | XMS_ITS | Encounter Summary ---
Author Organization [employer] Address [address] [facility] [address] [address] Care Team Providers Care Roller Machine Operator Name Role Phone Koki Vu MD Primary Care Provider [phone] Reason for Referral * Consultation (Routine) - Closed Specialty Diagnoses / Procedures Referred By Contac t Referred To Contact Rheumatology Diagnoses Erosion of bone Tirso Mayfield MD [address] [place] [address] Phone: tel: fax: [facility] [address] Phone: tel: fax: Referral ID Status Reason Start Date Expiration Date V isits Requested Visits Authorized [id number] Closed Specialty Services Required 08/02/2024 08/02/2025 1 1 Encounter Details Date Type Department Care Team (Late st Contact Info) Description 08/02/2024 Orders Only [facility] MED [facility] PEDS [address] [place] [address] Tirso Mayfield MD [address] [place] [address] Erosion of bone (Primary Dx) Social History [...] AM EDT) Rheumatoid Factor <13.0 <15.0 IU/mL [facility] Blood Venous blood specimen / Unknown 08/08/2024 10:40 AM EDT 08/08/2024 1:17 PM EDT Tirso Jara MD LAB BLOOD ORDERABL ES Final Result Performing Organization Address [facility] de Phone Number [facility] [address] [place] [phone] * Cyclic Citrullinated Peptide (CCP) Antibody (IgG) (08/08/2024 10:40 AM EDT) Cyclic Citrullinated Peptide <16 UNITS [facility] Comment:Reference RangeNegat shalom: <20Weak Positive: 20-39Moderate Positive: 40-59Strong Positive: >59THIS TEST WAS PERFORMED AT:[facility] [place] [id number] RECINOS MD Blood Venous blood specimen / Unknown 08/08/2024 10:40 AM EDT 08/08/2024 1:17 PM EDT Tirso Jara MD LAB BLOOD ORDERABL ES Final Result Performing Organization Address [facility] de Phone Number [facility] [address] [place] [phone] documented in this encounter Visit Diagnoses Diagnosis Erosion of bone- Primary documented in this encounter Additional Health Concerns Assessment Noted Time PHQ-9 Depression Total Score: 17 023 11:11 AM EDT documented as of this encounter Care Teams Roller Machine Operator Relationship Specialty Start Date End Date Koki Vu MD [address] [place] [address] PCP - General Family Medicine 10/23/20 Addie Out And Out Cigar Maker HandVideo Tape Duplicator 06/17/24 documented as of this encounter
--- OUTSIDE RECORDS SUMMARY | 2024-12-12 10:07 | XMS_ITS | Encounter Summary ---
Author Organization [employer] Address 75 [facility] 7[place] [address] Care Team Providers Care Business Continuity Manager Name Role Phone Koki Vu MD Primary Care Provider [phone] Encounter Details Date Type Department Care Team ([facility] st Contact Info) Description 11/22/2024 8:30 AM EST Office Visit [facility] MED & PEDS [address] [place], [place] [phone] Tirso Mayfield MD [address] [place] [address] Psoriatic arthritis (CMS/HCC) (Primary Dx) Social History [...] documented as of this encounter Care Teams Business Continuity Manager Relationship Specialty Start Date End Date Koki Vu MD [address] [place] [address] PCP - General Family Medicine 10/23/20 Addie Art CoordinatorFutures Trader 06/17/24 documented as of this encounter
--- OUTSIDE RECORDS SUMMARY | 2024-12-12 10:07 | XMS_ITS | Encounter Summary ---
Author Organization [employer] Address [address] [facility] [address] 7t [place] [address] Care Team Providers Care Rotary Machine Operator Name Role Phone Koki Vu MD Primary Care Provider Encounter Details Date Type Department Care Team (Late st Contact Info) Description 08/23/2023 Abstract [facility] [address] [place] [address] Koki Vu MD [address] [place] [address] Social History Tobacco Use Types Packs/Day Years [...] documented as of this encounter Care Teams Rotary Machine Operator Relationship Specialty Start Date End Date Koki Vu MD 230 [place] [address] PCP - General Family Medicine 10/23/20 Addie Marketing Services RepTrack Rider 06/17/24 documented as of this encounter
--- OUTSIDE RECORDS SUMMARY | 2024-12-12 10:07 | XMS_ITS | Encounter Summary ---
Author Organization [employer] Address [address] [facility] [address] 7t [place] [address] Care Team Providers Care Weave Defect Charting Clerk Name Role Phone Koki Vu MD Primary Care Provider [phone] Encounter Details Date Type Department Care Team (Late st Contact Info) Description 02/05/2024 Orders Only [facility] [address] [place] [address] Provider, MD Nasima Social History Tobacco Use [...] documented as of this encounter Care Teams Weave Defect Charting Clerk Relationship Specialty Start Date End Date Koki Vu MD [address] [place] [address] PCP - General Family Medicine 10/23/20 Addie Surfacer OperatorTemporary Staff Accountant 06/17/24 documented as of this encounter
--- OUTSIDE RECORDS SUMMARY | 2024-12-12 10:07 | XMS_ITS | Encounter Summary ---
Author Organization [employer] Address 75 [facility] 7t [place] [address] Care Team Providers Care Restaurant Hostess Name Role Phone Koki Vu MD Primary Care Provider [phone] Reason for Visit * Reason Onset Date Comments Durable Medical Equipment 02/07/2024 Encounter Details Date Type Department Care Team ([facility] st Contact Info) Description 02/07/2024 Telephone [facility] MED & PEDS 505 [place] [address] Koki Vu MD 505 [place] [address] Durable Medical Equipment Social History Tobacco Use [...] documented as of this encounter Care Teams Restaurant Hostess Relationship Specialty Start Date End Date Koki Vu MD [address] [place] [address] PCP - General Family Medicine 10/23/20 Addie Real Estate Development ManagerAssembly Stock Supervisor 06/17/24 documented as of this encounter
--- OUTSIDE RECORDS SUMMARY | 2024-12-12 10:07 | XMS_ITS | Clinical Summary ---
Author Organization [facility] Address [address] [place] [address] Care Team Providers Care Interventional Physician Name Role Phone Unavailable Primary Care Provider [...] to complete this topic , [address] [place] [address]
--- OUTSIDE RECORDS SUMMARY | 2024-12-12 10:07 | XMS_ITS | Encounter Summary ---
Author Organization [employer] Address [address] [facility] [address] 7t [place] [address] Care Team Providers Care Transit Bus Driver Name Role Phone Koki Vu MD Primary Care Provider [phone] Encounter Details Date Type Department Care Team ([facility] st Contact Info) Description 09/27/2024 Telephone [facility] MED & [facility]EDS [address] [place], [place] [phone] Koki Vu MD [address] [place] [address] Social History Tobacco Use Types Packs/Day Years [...] EST TC from [place] DO with [facility] pulmonology requesting a call back from pcp to discuss further medical options. Best contact # [phone]. documented in this encounter Plan of Treatment Not on file documented as of this encounter Visit Diagnoses Not on filedocumented in this encounter Additional Health Concerns Assessment Noted Time PHQ-9 Depression Total Score: 17 023 11:11 AM EDT documented as of this encounter Care Teams Transit Bus Driver Relationship Specialty Start Date End Date Koki Vu MD [address] [place] [phone] PCP - General Family Medicine 10/23/20 Addie Cargo AgentSound Effects Manager 06/17/24 documented as of this encounter
--- OUTSIDE RECORDS SUMMARY | 2024-12-12 10:07 | XMS_ITS | Encounter Summary ---
Author Organization [employer] Address 75 [facility] 7t [place] [address] Care Team Providers Care Oenologist Name Role Phone Koki Vu MD Primary Care Provider [phone] Reason for Visit * Reason Comments Med Refill Encounter Details Date Type Department Care Team ([facility] st Contact Info) Description 10/25/2023 Refill [facility] MED & PEDS 505 [place], [place] [phone] Koki Vu MD 505 [place] [address] Social History Tobacco Use Types Packs/Day Years [...] documented as of this encounter Care Teams Oenologist Relationship Specialty Start Date End Date Koki Vu MD [address] [place] [phone] PCP - General Family Medicine 10/23/20 Addie Mechanic InsulatorVascular Specialists 06/17/24 documented as of this encounter
--- OUTSIDE RECORDS SUMMARY | 2024-12-12 10:07 | XMS_ITS | Encounter Summary ---
Author Organization [employer] Address [address] [facility] [address] 7t [place] [address] Care Team Providers Care Hooker Off Name Role Phone Koki Vu MD Primary Care Provider [phone] Encounter Details Date Type Department Care Team [...] documented as of this encounter Care Teams Hooker Off Relationship Specialty Start Date End Date Koki Vu MD [address] [place] [address] PCP - General Family Medicine 10/23/20 Addie Community Chest OfficerRace Car Mechanic 06/17/24 documented as of this encounter
--- OUTSIDE RECORDS SUMMARY | 2024-12-12 10:07 | XMS_ITS | Clinical Summary ---
Author Organization [employer] Address [address] [place] [address] 7t [place] [address] Care Team Providers Care Operations Support Manager Name Role Phone Koki Vu MD Primary Care Provider [phone] Allergies No known active allergies Medications lactulose [...] reports he needs new TSH border for implement mechanic referal placed in previous appointment. Assessment & [...] Type Department Care Team Description 12/01/2024 Refill [facility] MED & PEDS [address] [place] [address] Koki Vu MD 11/29/2024 Orders Only GENERIC EXTERNAL DATA DEPARTMENT Provider, Generic External Data 11/28/2024 9:40 AM EST Office Visit [facility] [address] [facility] [place] [address] Starr Escobar MD Atopic dermatitis in adult (Primary Dx); Chronic migraine without aura without status migrainosus, not intractable 11/22/2024 8:30 AM EST Office Visit [facility] MED & PEDS [address] [place] [address] Tirso Mayfield MD Psoriatic arthritis ([facility]) (Primary Dx) 11/22/2024 Travel 11/20/2024 Telephone [facility] MED & PEDS [address] [place] [address] Koki Vu MD Nurse Triage 10/21/2024 Orders Only [facility] External Provider, [facility] 09/27/2024 Telephone [facility] MED & PEDS [address] [place] [address] Koki Vu MD 09/19/2024 Refill [facility] MED & PEDS [address] [place] [address] Koki Vu MD from Last 3 Months [...] 11:57 AM EST) Rast Allergen SEE NOTE [facility] Comment:SEE SCANNED RESULTS IN EMR 11/29/2024 11:5 7 AM EST 11/29/2024 11:57 AM EST us Generic External Data Provider HISTORICAL/NON OR DERABLE LABS Final Result [facility] [address] [place] [phone] * MR Lumbar Spine w/o Contrast (10/21/2024 9:55 AM EST) Anatomical Region Laterality Modality Spine, L-spine Magnetic Resonan ce 10/21/2024 9:55 AM EST Narrative 10/22/2024 3:45 PM EST ? [facility] ?[address] ?[place] [address] ? Magnetic Resonance Report ? Signed ? Patient: [place] Elkins,Kvng E ?MR#: [id number] ?? [id number] ? : 1965 ?Acct:[id number] ? Age/Sex: 59 / M ?ADM Date: 10/21/24 ? Loc: HO.MRI ? Attending Dr: Winston Boykin MD ? Ordering Physician: Winston Boykin MD ?? Date of Service: 10/21/24 ?? Procedure(s): MR lumbar spine wo con ?? Accession Number(s): [id number] ? cc: Winston Boykin MD; Koki Vu [...] MD ? Signed By: ?<Electronically signed by Jakbo Mcfadden MD in OV> ? 10/22/24 1542 ? DD/ 0955 ? TD/TT: 10/21/24 1020 ? Retail Zone Specialist: ? Procedure Note Donviniter, Image - 10/22/2024 [place] [phone] Magnetic Resonance Report Signed Patient: Kvng Ramon EMR#: [id number] : 1965Acct:[id number] Age/Sex: 59 / MADM Date: 10/21/24 Loc: HO.MRI Attending Dr: Winston Boykin MD Ordering Physician: Winston Boykin MD Date of Service: 10/21/24 Procedure(s): MR lumbar spine wo con Accession Number(s): [id number] cc: Winston Boykin MD; Koki Vu MD [...] 10/22/24 1542 DD/ 0955 TD/TT: 10/21/24 1020 Retail Zone Specialist: [facility] External Provider IMG MRI PROCEDURES Final Result * Hepatitis Panel, General (08/13/2024 11:49 AM EST) Hepatitis A IgM Nonreactive Nonreactive [facility] Comment:IgM antibodies to TORREZ V not detected; does not exclude earlyacute or recovered HAV infection. ~Hepatitis B Surface Antibody NONREACTIVE Nonreactive [facility] Comment:Nonreactive: < 8.00 mIU/mL Hepatitis B Core Antibody Nonreactive Nonreactive [facility] Hepatitis C Antibody Nonreactive Nonreactive [facility] Comment:Antibodies to HCV no t detected; does not exclude early acuteHCV infection. Hepatitis B Surface Ag Negative Negative [facility] 08/13/2024 11:4 9 AM EST 08/13/2024 11:49 AM EST us Generic External Data Provider LAB BLOOD ORDERAB LES Final Result [facility] [address] [place] [phone] * Cologuard?? colon cancer screening (08/10/2023 3:59 PM EDT) Cologuard Result Negative Negative 08/17/20 9:57 AM EST [facility] (CLIA #:[id number]) Comment: NEGATIVE TEST RESULT. A negative Cologuard [...] cancer. ??Following a negative Cologuard result, the [place] Cancer Society and U.S. Multi-Society Task Force screening guidelines recommend a Cologuard re-screening interval of 3 years. References: [place] [employer] Guideline for Colorectal Cancer Screening: https://www.cancer.org/cancer/ckiqi-cafuyo-wautfu/fwqpclzws-sohwnzjtz-gqojzic/ac s-rec ommendations.html.; Delroy DK, Rere OTERO, Guy RochaK, Colorectal Cancer Screening: Recommendations for Physicians and Patients from the U.S. Multi-Society Task Force on Colorectal Cancer Screening , Am J Gastroenterology 2017; 112:8208-3932. TEST DESCRIPTION: Composite algorithmic analysis of stool [...] (Harris Albarran al, N Engl J Med 2014;370(14):9030-8427.) Cologuard may produce a false negative or false positive result (no colorectal cancer or precancerous polyp present at colonoscopy follow up). A negative Cologuard test result does not guarantee the absence of CRC or advanced adenoma (pre-cancer). The current Cologuard screening interval is every 3 years. ([place] Cancer Society and U.S. Multi-Society Task Force). Cologuard performance data in a 10,000 patient pivotal study using colonoscopy as the reference method can be accessed at the following location: www.[employer].Packetmotion/results. Additional description of the Cologuard test process, warnings and precautions can be found at www.[employer].com. Stool specimen (specimen) 08/10/2023 3:59 PM EDT 08/11/2023 6:19 PM EDT Koki Vu MD LAB MOLECULAR DIAGNOSTICS ORD ERABLES Final Result [facility] (CLIA #:[id number]) [place] [address], * Hemoglobin A1c (05/15/2023 12:13 PM EDT) Hemoglobin A1c 5.7 % [facility] Comment:Hemoglobin A1C Refer ence Range Adults: 4.8 - 6.0 % Non diabetic: < 6.0 % Goal: < 7.0 %Additional Action Suggested: > 8.0 %Note: Hemoglobin A1c results are invalid for patients with abnormal amounts of HbF. Blood transfusions may impact the HbA1c concentration in the patient sample. Estimated Average Glucose 117 mg/dL [facility] Comment:eAG = Estimated ave rage glucose which is %A1C expressed asaverage glucose, using the formula of the U6X-OttiyjzKzliekc Glucose study (ADAG), Diabetes Care, Vol.31,#8,May. 2007 Blood Venous blood specimen / Unknown 05/15/2023 12:13 PM EDT 05/15/2023 2:16 PM EDT us Koki Vu MD LAB BLOOD ORDERABLES Final Re sult [facility] [address] [place] [phone] * (ABNORMAL) LIPID PANEL, STANDARD (04/15/2022 [...] ?? Mo JAY et al. RADHA. 2013;310(19): 1936-3276 ?? (http://[employer].Startups/faq/UQK087) Non-HDL Cholesterol 151(H) <130 mg/dL (calc) [facility] Comment: For patients with diabetes plus 1 major ASCVD risk ?? factor, treating to a non-HDL-C goal of <100 mg/dL ?? (LDL-C of <70 mg/dL) is considered a therapeutic ?? option. Triglycerides 109 <150 mg/dL [facility] 04/15/2022 9:27 AM EDT Koki Vu MD LAB BLOOD ORDERABLES Final Re sult [facility] [address] * Hm Colonoscopy (04/17/2018 6:07 AM EDT) Historical Provider HEALTH MAINTENANCE Final Result from Last 3 Months or Most Recently Relevant to Health Maintenance Insurance Care Teams Operations Support Manager Relationship Specialty Start Date End Date Koki Vu MD [address] [place] [phone] PCP - General Family Medicine 10/23/20 Addie Planning AssociatePortable Pinch Riveter 06/17/24
--- OUTSIDE RECORDS SUMMARY | 2024-12-12 10:07 | XMS_ITS | Encounter Summary ---
Author Organization [employer] Address [address] [facility] [address] 7t [place] [address] Care Team Providers Care Supervisor Pastry Name Role Phone Koki Vu MD Primary Care Provider [phone] Encounter Details Date Type Department Care Team (Late st Contact Info) Description 11/28/2024 9:40 AM EST Office Visit [facility] [address] [place] [phone] Starr Escobar MD [address] [place], [place] [phone] Atopic dermatitis in adult (Primary Dx); Chronic [...] as of this encounter Care Teams Supervisor Pastry Relationship Specialty Start Date End Date Koki Vu MD [address] [place] [address] PCP - General Family Medicine 10/23/20 Addie Cement PaverCan Tester 06/17/24 documented as of this encounter
--- OUTSIDE RECORDS SUMMARY | 2024-12-12 10:07 | XMS_ITS | Encounter Summary ---
Author Organization [employer] Address 75 [facility] 7t [place] [address] Care Team Providers Care Ip Litigation Associate Name Role Phone Koki Vu MD Primary Care Provider [phone] Reason for Visit * Reason Comments Med Refill Encounter Details Date Type Department Care Team ([facility] st Contact Info) Description 10/25/2023 Refill [facility] MED & PEDS [address] [place], [place] [phone] Koki Vu MD [address] [place] [address] Social History Tobacco Use Types Packs/Day Years [...] documented as of this encounter Care Teams Ip Litigation Associate Relationship Specialty Start Date End Date Koki Vu MD [address] [place] [address] PCP - General Family Medicine 10/23/20 Addie Vp ProductAnalytics Manager 06/17/24 documented as of this encounter
--- OUTSIDE RECORDS SUMMARY | 2024-12-12 10:07 | XMS_ITS | Encounter Summary ---
Author Organization [employer] Address 75 [facility] 7t [place] [address] Care Team Providers Care Stamp Press Operator Name Role Phone Koki Vu MD Primary Care Provider Reason for Visit * Reason Comments Med Refill Encounter Details Date Type Department Care Team ([facility] st Contact Info) Description 03/28/2024 Refill [facility] MED & PEDS [address] [place], [place] [phone] Koki Vu MD [address] [place] [address] Social History Tobacco Use Types Packs/Day Years [...] documented as of this encounter Care Teams Stamp Press Operator Relationship Specialty Start Date End Date Koki Vu MD [address] [place] [address] PCP - General Family Medicine 10/23/20 Addie Stem AssemblerIndustrial Safety And Health Technician 06/17/24 documented as of this encounter
== END 2024-12-12 09:53 | disposition home or self-care (01) ==
PROVIDERS: PCP Family Medicine; Visit Provider Anesthesiology
DX: M53.3 Sacrococcygeal disorders, not elsewhere classified (principal); M54.16 Radiculopathy, lumbar region; M51.369 Other intervertebral disc degeneration, lumbar region without mention of lumbar back pain or lower extremity pain; G89.4 Chronic pain syndrome; M50.30 Other cervical disc degeneration, unspecified cervical region; M47.812 Spondylosis without myelopathy or radiculopathy, cervical region
CPT/HCPCS: 99213

== ENCOUNTER → 2024-12-12 09:07 | Outpatient (BNVA) | payer MEDICAID, SELFPAY | PROVIDERS: PCP Family Medicine; Visit Provider Anesthesiology | DX: M50.30 Other cervical disc degeneration, unspecified cervical region (principal); R51.9 Headache, unspecified; M53.3 Sacrococcygeal disorders, not elsewhere classified; M54.16 Radiculopathy, lumbar region; M47.812 Spondylosis without myelopathy or radiculopathy, cervical region; M51.369 Other intervertebral disc degeneration, lumbar region without mention of lumbar back pain or lower extremity pain; G89.4 Chronic pain syndrome | CPT/HCPCS: 99212 ==

== ENCOUNTER 2024-12-17 10:47 | Outpatient (AMB) | payer MEDICAID, SELFPAY ==
--- NOTE | 2024-12-17 10:54 | MHC.OFFVIS ---
Vital Signs 12/17/24 11:05 Height 5 ft 3 in Weight 174 lb 9.698 oz BMI 30.9 BP 120/70 Blood Pressure Location Lt brachial Position Sitting Pulse 70 Pulse Source Pulse Oximeter Pulse Oximetry (%) 96 Oxygen Delivery Method Room Air Intake Visit Reasons: follow up Intake Note: Patient presents for follow up. Personnel Clerk Required: Yes Personnel Clerk Language: Crime Scene Technician Services: Personnel Clerk Present Personnel Clerk Name: Raghu [id number] Information Interpreted: non-clinical & clinical Allergies [id number] [From Ajovy Autoinjector] Allergy (Unknown, Verified 12/17/24 11:04) Rash Medication List - Last Reconciled 12/17/24 by Cristela Dejesus MD albuterol sulfate 90 mcg/actuation (ProAir HFA) 2 puffs inhalation Q6H PRN atorvastatin 80 mg PO BEDTIME bumetanide 1 mg PO DAILY 30 days buspirone 15 mg PO BID celecoxib (Celebrex) 200 mg PO BID PRN cholecalciferol (vitamin D3) 50 mcg PO DAILY diclofenac sodium 1% (Voltaren Arthritis Pain) 2 grams topical QID epinephrine IM DIRECTED esomeprazole magnesium 40 mg PO DAILY etanercept (Enbrel SureClick) 50 mg subcut QWEEK fluticasone propion-salmeterol 250-50 mcg/dose (Advair Diskus) 1 ea PO BID fluticasone propionate 50 mcg/actuation 1 spray intranasal DAILY levothyroxine 88 mcg PO DAILY lidocaine 5% 1 patch topical DAILY loratadine 10 mg PO DAILY magnesium oxide 400 mg PO DAILY 90 days methocarbamol 500 mg PO BEDTIME 90 days nortriptyline 10 mg PO BEDTIME polyethylene glycol 3350 (Miralax) 17 grams PO BID pregabalin 225 mg PO BID riboflavin (vitamin B2) 400 mg PO DAILY 90 days sucralfate 10 mL PO BID sumatriptan succinate 50 - 100 mg orally at onset of headache, may repeat in 2 hrs PRN; max 2 tabs per day or 4 tabs/week (may take with Tylenol) 30 days triamcinolone acetonide 0.1% appl topical DAILY HPI Comments Details: Patient is a 59-year-old male with hyperlipidemia, hypothyroidism, spondylosis of the cervical spine and lumbosacral spine, polyarticular osteoarthritis, [place], GERD, fibromyalgia, avascular necrosis of the left hip, psoriasis and psoriatic arthritis here today for follow up Interval History: Patient last seen 08/16/2024 with me. At that time he was complaining of whole-body pain is particularly lower back pain radiating to his bilateral legs. He improved his use of his weekly etanercept injections. He was having significant osteoarthritic pains and was given a trial of Celebrex He started the celebrex which he states helped but he feels his pain is so chronic He also states he returned to pain management who said that they were going to try a spinal stimulator first for his neck and then for his low back. Currently taking his Enbrel weekly Main complaint today is left ring finger triggering Rheumatologic History: Psoriatic arthritis - Methotrexate: dates unknown - Enbrel: 06/2019-present Current Rheumatology Medication(s): Enbrel 50 mg sc weekly Celebrex 200mg bid Methocarbamol 500mg bedtime [facility] 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 Venous congestion Pain in right lower leg Lipoma of scalp Kidney cysts Spondylosis of thoracic spine Spondylosis of lumbar spine Schatzki's ring Fatty liver HTN (hypertension) Pre-diabetes Dysphagia Asthma Hx of chest pain DAYNA on CPAP Hypothyroid Psoriasis Psoriatic arthritis Chronic pain Mood disorder Depression Avascular necrosis Chronic pain syndrome Spondylosis of lumbar region without myelopathy or radiculopathy Spondylosis, cervical Degeneration, intervertebral disc, cervical Surgical History History of back surgery History of surgery Status post excision of lipoma (~10/21/21) Status post cardiac catheterization Hx of cardiac cath H/O neck surgery Hx of hand surgery Hx of endoscopy History of colonoscopy Family History Father Cirrhosis Alcoholism Mother Diabetes HTN (hypertension) Parkinson disease Brother Cirrhosis Alcoholism Social History Household Members: Spouse and Children Are you a primary assurance services manager health care to a significant other at home: No Do you presently have visiting nurse or other home services: No Alcohol intake: never Patient Tobacco Use Status: Former Tobacco user Tobacco use type: Cigarette Second Hand Smoke Exposure: No Current occupational status: disabled Current occupation: rt handed Review of Systems Const Details: Review of Systems Constitutional: Denies fever, chills, weight loss ENT: Denies vision changes, eye pain or eye redness, dental caries, dry mouth GI: Denies nausea, vomiting, diarrhea, abdominal pain, change in BM Pulm: Denies SOB, DIAZ, hemoptysis, wheezing Cards: Denies chest pain, palpitations Skin: Denies Raynaud's, rash, nail changes, photosensitivity, MEDICAL LABORATORY SPECIALIST: Denies headaches, weakness, paresthesias, recurrent falls MSK: as per HPI All other systems reviewed and are unremarkable except noted above Physical Exam Vital Signs: Last Vital Signs Pulse 70 12/17/24 11:05 BP 120/70 12/17/24 11:05 Pulse Ox 96 12/17/24 11:05 Oxygen Delivery Method Room Air 12/17/24 11:05 BMI result Body Mass Index 30.9 Vital signs reviewed Physical Examination CONSTITUITIONAL Patient alert and cooperative. Well appearing and in no apparent painful distress HEENT Conjunctiva and sclera clear. ?Pupils equal round and reactive to light. ?No lymphadenopathy. ? CHEST/RESPIRATORY SYSTEM Normal respiratory effort and able to speak in complete sentences. ?Clear to auscultation bilaterally. ?No crackles, rales, rhonchi, wheezes heard. CARDIAC SYSTEM Regular rate and rhythm. ?S1 and S2 heard no murmurs. ?Radial pulses intact bilaterally MSK Hands: ?Good neurodiagnostic technologist strength bilaterally. No deformities noted. ?No synovitis noted to the MCPs, PIPs or DIPs. ?No tenderness to palpation of these joints. Prominent [place] and Jorge's nodes. Tenderness to palpation of the left 4th digit A1 tiny with a grinding with manual flexion and extension of the digit. Wrists: ?Full range of motion at the wrists without pain. ?No tenderness to palpation or synovitis noted to the wrists. Elbows: Full range of motion without pain. No tenderness, weakness, swelling, increased warmth or erythema. Shoulders: Full range of motion without pain. No tenderness, weakness, swelling, increased warmth or erythema. Hips: Full range of motion without pain. Hip bursa: No tenderness to palpation Knees: ?Full range of motion. ?No tenderness, swelling, increased warmth or erythema.?No effusion or crepitations Ankles: Full range of motion. ?No tenderness, swelling, increased warmth or erythema.? Feet: ?Negative squeeze test. ?No tenderness to palpation or swelling of the MTPs. Tender points:?No tenderness to palpation of the bilateral trapezius, supraspinatus, greater trochanters, anterior costochondral junctions, bilateral gluteal areas, bilateral suboccipital muscle insertions SKIN Onycholysis to fingernails Office Procedures AMB Joint Injection/Aspiration Joint Injection/Aspiration Details: Procedure was explained to the patient and consent was obtained. ? The area of interest was identified and confirmed with patient. ?This was subsequently cleaned with chlorhexidine x3. ? The area was then anesthetized using ethyl chloride spray. 20 mg Kenalog with 0.1 cc 1% lidocaine was injected without issue. ?Minimal to no bleeding. ?Patient tolerated procedure. Primary Site: left trigger finger Prep: site was prepped using aseptic technique and ethochloride spray was applied Injected: 20 mg of, Kenalog, 1% plain lidocaine (0.1cc) and other Approach Used: other Procedure: The patient tolerated the procedure well Coding 04397 - Bicipital Groove Injection Procedure code (CPT) selection complete Office Meds lidocaine (PF) 10 mg/mL (1 %) injection solution Performing Provider: Cristela Dejesus MD Performing Location: [facility] [place] Rheumatology Documented (not given) by: Cristela Dejesus MD on 12/17/24 12:49 Dose Route Admin Location Dispensed Lot Number Expiration Date [facility] Leaf Sorter 0.1 mL Infiltration mL Kenalog 40 mg/mL suspension for injection Performing Provider: Cristela Dejesus MD Performing Location: [facility] [place] Rheumatology Documented (not given) by: Cristela Dejesus MD on 12/17/24 12:49 Dose Route Admin Location Dispensed Lot Number Expiration Date [facility] Leaf Sorter 20 mg Tendon Sheath Inj. mL Results Reviewed Results Reviewed: Laboratory Tests 12/10/24 12/10/24 01:35 08:56 WBC 8.6 RBC 4.78 Hgb 14.6 Hct 43.6 Plt Count 265 Sodium 141 Potassium 3.9 Chloride 106 Carbon Dioxide 30 H BUN 14 Creatinine 1.12 Random Glucose 106 Calcium 9.0 D Total Bilirubin 0.4 AST 29 ALT 31 Alkaline Phosphatase 81 C-Reactive Protein 0.12 Infectious serologies 12/10/24 08:56 Hepatitis A IgM Ab Nonreactive Hep Bs Antigen Negative Hep Bs Antibody NONREACTIVE Hep B Core Total Ab Nonreactive Hepatitis C Ab (EIA) Nonreactive Immunology labs 07/20/22 08/08/24 08/13/24 11:11 10:40 11:49 Rheumatoid Factor < 13.0 Cycl Citrul Peptide IgG <16 SS-A/Ro Antibody <1.0 NEG SS-B/La Antibody <1.0 NEG Scl-70 Scleroderma Ab <1.0 NEG HLA-B27 Negative Assessment & Plan Assessment & Plan (1) Trigger ring finger of left hand: Code(s): M65.342 - Trigger finger, left ring finger Plan: #Left 4th digit trigger finger Patient with left 4th digit trigger finger status post injection today. Also recommending splinting for the next 4-6 weeks to aid in healing of the tendon Plan - S/p steroid injection today - Trigger finger splint for 4-6 weeks (2) Psoriatic arthritis: Comment: Methotrexate: dates unknown Enbrel: 06/2019-present Code(s): L40.50 - Arthropathic psoriasis, unspecified Category: Medical Plan: #PsA Patient is a 59-year-old male with psoriasis complicated by psoriatic arthritis. His psoriasis and psoriatic arthritis are currently in remission Plan - Enbrel 50mg SC weekly - RTC 4 months - Labs before visit: CBC, CMP, ESR, CRP, hepatitis panel, T spot (3) Osteoarthritis involving multiple joints on both sides of body: Code(s): M15.9 - Polyosteoarthritis, unspecified Category: Medical Plan: #Polyarticular OA Patient with widespread osteoarthritis and degenerative disease involving C-spine and LS spine. Currently undergoing evaluation with pain management with plans to do nerve stimulator. We will continue with Celebrex which helps his pain although it does not completely relieve it Continue follow up with pain management Plan - Celebrex 200mg bid - Methocarbamol 500mg at bedtime (4) Long-term use of immunosuppressant medication: Code(s): Z79.60 - FPC (current) use of unspecified immunomodulators and immunosuppressants Category: Medical Plan: #Long-term Use of TNF Inhibitors: Enbrel Discussed with the patient the benefits and risks of TNF inhibitors for the management of the rheumatic condition Benefits include reduce pain, maintenance of remission and reduction of flares as well as ?progression of the disease Risks include injection sites/infusion reactions, serious infections (such as bacterial infections, opportunistic infections), malignancy, delaminating syndromes, autoimmune phenomena, CHF exacerbations, palmar plantar psoriasis and cytopenias Recommended rotating injection sites, and holding medication during and for up to 1 week after resolution of a febrile illness or open skin wound Orders: Orders C Reactive Protein 4 Months L40.50 - Arthropathic psoriasis, unspecified AMB Joint Injection/Aspiration Today M65.342 - Trigger finger, left ring finger Complete Blood Count Auto Diff 4 Months L40.50 - Arthropathic psoriasis, unspecified Comprehensive Met. Panel 4 Months L40.50 - Arthropathic psoriasis, unspecified Erythrocyte Sedimentation Rate 4 Months L40.50 - Arthropathic psoriasis, unspecified Medications: New lidocaine (PF) 0.1 mL Infiltration ONCE 2 mL 0RF M65.342 - Trigger finger, left ring finger Kenalog (triamcinolone acetonide) 20 mg (0.5 mL) Tendon Sheath Inj. ONCE 0.5 mL 0RF NS M65.342 - Trigger finger, left ring finger Coding Level of Care Code Est Pt Level 4 (21383) Complex EM visit Add On G2211 Diagnoses Trigger ring finger of left hand M65.342 Psoriatic arthritis L40.50 Osteoarthritis involving multiple joints on both sides of body M15.9 Long-term use of immunosuppressant medication Z79.60 CPT Codes Coding - Joint 1: 91063 - Bicipital Groove Injection ([id number])
[2024-12-17 11:05] VITALS: BP 120/70; PULSE 70; O2SAT 96; BMI 30.9
--- OUTSIDE RECORDS SUMMARY | 2024-12-17 13:04 | XMS_ITS | Clinical Summary ---
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 Psoriatic [...] Team Description 09/27/2024 10:50 AM EST Follow-Up [facility] [address] [place] [phone] Farmworker General: Satinder Sanders, DO Dyspnea on exertion (Primary Dx); Moderate persistent asthma without complication 09/24/2024 Telephone [facility] [address] [place] [phone] Farmworker General: Katiana Pandya MA from Last 3 Months Immunizations Immunization Administration Dates Next Due Hepatitis A Vaccine, Adult Dosage 08/14/2019 Hepatitis B adult (ENGERIX-B ADULT) vaccine 1 mL IM 08/14/2019 Influenza, Injectable, Quadr ivalent, Contains Preservative 09/06/2018,12/11/2017 Influenza, Injectable, Quadr ivalent, Preservative Free 07/31/2023,07/02/2021,08/26/2020,2018 Pneumococcal Conjugate Vacci ne, 13 Valent 06/07/2019 Pneumococcal conjugate PCV20,polysaccharide [id number] conjugate, adjuvant, PF (Prevnar 20) 02/01/2024 RSV, [...] 07/02/2021, Additional history exists Insurance Care Teams Varnish Maker Relationship Specialty Start Date End Date Koki Vu [address] [place] [id number] PCP - General 12/26/23
--- OUTSIDE RECORDS SUMMARY | 2024-12-17 13:05 | XMS_ITS | Encounter Summary ---
Author Organization [employer] Address [address] [facility] [address] [place] [address] Care Team Providers Care Train Inspector Name Role Phone Koki Vu MD Primary Care Provider [phone] Encounter Details Date Type Department Care Team ([facility] st Contact Info) Description 11/22/2024 8:30 AM EST Office Visit [facility] [address], [place] [phone] Tirso Mayfield MD [address] [place] [address] Psoriatic arthritis (CMS/HCC) (Primary Dx) Social History [...] 11/22/2024 8:30 AM EST Subjective Patient ID: [id number] Elkins is a 59 y.o. male who [...] documented as of this encounter Care Teams Train Inspector Relationship Specialty Start Date End Date Koki Vu MD [address] [place] [address] PCP - General Family Medicine 10/23/20 Addie Loan And Credit ManagerProject Account Manager 06/17/24 documented as of this encounter
--- OUTSIDE RECORDS SUMMARY | 2024-12-17 13:05 | XMS_ITS | Encounter Summary ---
Author Organization [employer] Address [address] [facility] [address] [place] [address] Care Team Providers Care Cloth Classer Name Role Phone Koki Vu MD Primary Care Provider [phone] Encounter Details Date Type Department Care Team (Late st Contact Info) Description 11/28/2024 9:40 AM EST Office Visit [facility] [address] [place] [phone] Starr Escobar MD [address] [place], [place] [phone] Atopic dermatitis in adult (Primary Dx); Chronic [...] documented as of this encounter Care Teams Cloth Classer Relationship Specialty Start Date End Date Koki Vu MD [address] [place] [id number] PCP - General Family Medicine 10/23/20 Addie Butadiene Converter OperatorAssembly Operator 06/17/24 documented as of this encounter
--- OUTSIDE RECORDS SUMMARY | 2024-12-17 13:05 | XMS_ITS | Encounter Summary ---
Author Organization [employer] Address [address] [facility] [address] [place] [address] Care Team Providers Care Service Observer Chief Name Role Phone Koki Vu MD Primary Care Provider [phone] Reason for Visit * Reason Onset Date Comments Durable Medical Equipment 02/07/2024 Encounter Details Date Type Department Care Team ([facility] st Contact Info) Description 02/07/2024 Telephone [facility] [address] [place] [address] Koki Vu MD [address] [place] [address] Durable Medical Equipment Social History Tobacco Use [...] documented as of this encounter Care Teams Service Observer Chief Relationship Specialty Start Date End Date Koki Vu MD [address] [place] [address] PCP - General Family Medicine 10/23/20 Addie Commissioner Of Relocation ServicesBilingual Secretary 06/17/24 documented as of this encounter
--- OUTSIDE RECORDS SUMMARY | 2024-12-17 13:05 | XMS_ITS | Clinical Summary ---
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 Assessment & [...] Already f w psychiatrist and therapist at [facility] ---advised to continue care and may need eval if meds can be adjusted Chronic low back pain 12/11/2017 Assessment & Plan (06/13/2023 1:43 PM EDT): Not responsive to opiate medications. At this point will send a trial of Lyrica. Will need to proceed with PA for this. Encounters Date Type Department Care Team Description 12/01/2024 Refill [facility] [address] [place] [address] Koki Vu MD 11/29/2024 Orders Only GENERIC EXTERNAL DATA DEPARTMENT Provider, Generic External Data 11/28/2024 9:40 AM EST Office Visit [facility] [address] [place] [address] Starr Escobar MD Atopic dermatitis in adult (Primary Dx); Chronic migraine without aura without status migrainosus, not intractable 11/22/2024 8:30 AM EST Office Visit [facility] [address] [place] [address] Tirso Mayfield MD Psoriatic arthritis ([facility]) (Primary Dx) 11/22/2024 Travel 11/20/2024 Telephone [facility] [address] [place] [address] Koki Vu MD Nurse Triage 10/21/2024 Orders Only [facility] External Provider, [facility] 09/27/2024 Telephone [facility] [address] [place] [address] Koki Vu MD 09/19/2024 Refill [facility] [address] [place] [address] Koki Vu MD from Last 3 Months [...] 11:57 AM EST) Rast Allergen SEE NOTE [facility] Comment:SEE SCANNED RESULTS IN EMR 11/29/2024 11:5 7 AM EST 11/29/2024 11:57 AM EST us Generic External Data Provider HISTORICAL/NON OR DERABLE LABS Final Result [facility] [address] [place] [phone] * MR Lumbar Spine w/o Contrast (10/21/2024 9:55 AM EST) Anatomical Region Laterality Modality Spine, L-spine Magnetic Resonan ce 10/21/2024 9:55 AM EST Narrative 10/22/2024 3:45 PM EST ? [facility] ?[address] ?[place] [address] ? Magnetic Resonance Report ? Signed ? Patient: Grandview Elkins,Kvng E ?MR#: [id number] ?? [id number] ? : 1965 ?Acct:[id number] ? Age/Sex: 59 / M ?ADM Date: 10/21/24 ? Loc: HO.MRI ? Attending Dr: Winston Boykin MD ? Ordering Physician: Winston Boykin MD ?? Date of Service: 10/21/24 ?? Procedure(s): MR lumbar spine wo con ?? Accession Number(s): [id number] ? cc: Winston Boykin MD; Koki Vu [...] DD/ 0955 ? TD/TT: 10/21/24 1020 ? Spool Fixer: ? Procedure Note Donviniter, Image - 10/22/2024 [place] [address] Magnetic Resonance Report Signed Patient: Kvng Ramon EMR#: [id number] : 1965Acct:[id number] Age/Sex: 59 / MADM Date: 10/21/24 Loc: HO.MRI Attending Dr: Winston Boykin MD Ordering Physician: Winston Boykin MD Date of Service: 10/21/24 Procedure(s): MR lumbar spine wo con Accession Number(s): [id number] cc: Winston Boykin MD; Koki Vu MD [...] 10/22/24 1542 DD/ 0955 TD/TT: 10/21/24 1020 Spool Fixer: [facility] External Provider IMG MRI PROCEDURES Final Result * Hepatitis Panel, General (08/13/2024 11:49 AM EST) Hepatitis A IgM Nonreactive Nonreactive [facility] Comment:IgM antibodies to TORREZ V not detected; does not exclude earlyacute or recovered HAV infection. ~Hepatitis B Surface Antibody NONREACTIVE Nonreactive [facility] Comment:Nonreactive: < 8.00 mIU/mL Hepatitis B Core Antibody Nonreactive Nonreactive [facility] Hepatitis C Antibody Nonreactive Nonreactive [facility] Comment:Antibodies to HCV no t detected; does not exclude early acuteHCV infection. Hepatitis B Surface Ag Negative Negative [facility] 08/13/2024 11:4 9 AM EST 08/13/2024 11:49 AM EST us Generic External Data Provider LAB BLOOD ORDERAB LES Final Result [facility] [address] [place] [phone] * Cologuard?? colon cancer screening (08/10/2023 3:59 PM EDT) Cologuard Result Negative Negative 08/17/20 9:57 AM EST [facility] (CLIA #:[id number]) Comment: NEGATIVE TEST RESULT. A negative Cologuard [...] cancer. ??Following a negative Cologuard result, the [place] Cancer Society and U.S. Multi-Society Task Force screening guidelines recommend a Cologuard re-screening interval of 3 years. References: [place] [employer] Guideline for Colorectal Cancer Screening: https://www.cancer.org/cancer/zujzl-qfsptn-pxdrzf/tztyxlnhq-qlgpbzpgs-brzknnf/ac s-rec ommendations.html.; Delroy DK, Rere OTERO, Guy RochaK, Colorectal Cancer Screening: Recommendations for Physicians and Patients from the U.S. Multi-Society Task Force on Colorectal Cancer Screening , Am J Gastroenterology 2017; 112:9449-4861. TEST DESCRIPTION: Composite algorithmic analysis of stool [...] (Harris Albarran al, N Engl J Med 2014;370(14):3525-0320.) Cologuard may produce a false negative or false positive result (no colorectal cancer or precancerous polyp present at colonoscopy follow up). A negative Cologuard test result does not guarantee the absence of CRC or advanced adenoma (pre-cancer). The current Cologuard screening interval is every 3 years. ([place] Cancer Society and U.S. Multi-Society Task Force). Cologuard performance data in a 10,000 patient pivotal study using colonoscopy as the reference method can be accessed at the following location: www.[employer].HealthWarehouse.com/results. Additional description of the Cologuard test process, warnings and precautions can be found at www.800razorsrd.com. Stool specimen (specimen) 08/10/2023 3:59 PM EDT 08/11/2023 6:19 PM EDT Koki Vu MD LAB MOLECULAR DIAGNOSTICS ORD ERABLES Final Result [facility] (CLIA #:[id number]) [place] [address], * Hemoglobin A1c (05/15/2023 12:13 PM EDT) Hemoglobin A1c 5.7 % [facility] Comment:Hemoglobin A1C Refer ence Range Adults: 4.8 - 6.0 % Non diabetic: < 6.0 % Goal: < 7.0 %Additional Action Suggested: > 8.0 %Note: Hemoglobin A1c results are invalid for patients with abnormal amounts of HbF. Blood transfusions may impact the HbA1c concentration in the patient sample. Estimated Average Glucose 117 mg/dL [facility] Comment:eAG = Estimated ave rage glucose which is %A1C expressed asaverage glucose, using the formula of the T1T-FfecoueKiosfvk Glucose study (ADAG), Diabetes Care, Vol.31,#8,May. 2007 Blood Venous blood specimen / Unknown 05/15/2023 12:13 PM EDT 05/15/2023 2:16 PM EDT us Koki Vu MD LAB BLOOD ORDERABLES Final Re sult [facility] [address] [place] [address] [phone] * (ABNORMAL) LIPID PANEL, STANDARD (04/15/2022 [...] ?? Mo JAY et al. RADHA. 2013;310(19): 8472-4697 ?? (http://[employer].ZeroCater/faq/IHL127) Non-HDL Cholesterol 151(H) <130 mg/dL (calc) [facility] [...] [facility] [address] * Hm Colonoscopy (04/17/2018 6:07 AM EDT) Historical Provider HEALTH MAINTENANCE Final Result from Last 3 Months or Most Recently Relevant to Health Maintenance Insurance Care Teams Retail Merchandising Coordinator Relationship Specialty Start Date End Date Koki Vu MD [address] [place] [address] PCP - General Family Medicine 10/23/20 Addie Environmental Marketing RepresentativeMedical Accountant 06/17/24
--- OUTSIDE RECORDS SUMMARY | 2024-12-17 13:05 | XMS_ITS | Encounter Summary ---
Author Organization [employer] Address [address] 7t [place] [address] Care Team Providers Care Coding And Reimbursement Specialist Name Role Phone Koki Vu MD Primary Care Provider [phone] Encounter Details Date Type Department Care Team (Late st Contact Info) Description 02/05/2024 Orders Only [facility] [address] [place] [address] Provider, MD Nasima Social History Tobacco Use [...] documented as of this encounter Care Teams Coding And Reimbursement Specialist Relationship Specialty Start Date End Date Koki Vu MD [address] [place] [address] PCP - General Family Medicine 10/23/20 Addie Community Relations AdvisorLie Detector Operator 06/17/24 documented as of this encounter
--- OUTSIDE RECORDS SUMMARY | 2024-12-17 13:05 | XMS_ITS | Encounter Summary ---
Author Organization [employer] Address [address] [facility] 7t [place] [address] Care Team Providers Care Stave Block Roller Name Role Phone Koki Vu MD Primary Care Provider [phone] Reason for Visit * Reason Comments Med Refill Encounter Details Date Type Department Care Team ([facility] st Contact Info) Description 12/01/2024 Refill [facility] [address] [place], [place] [phone] Koki Vu MD [address] [place] [address] Social History Tobacco Use Types Packs/Day Years [...] documented as of this encounter Care Teams Stave Block Roller Relationship Specialty Start Date End Date Koki Vu MD [address] [place] [address] PCP - General Family Medicine 10/23/20 Addie Dairy Frozen ManagerInshore Undersea Warfare Officer 06/17/24 documented as of this encounter
--- OUTSIDE RECORDS SUMMARY | 2024-12-17 13:05 | XMS_ITS | Encounter Summary ---
Author Organization [employer] Address [address] [facility] 7t [place] [address] Care Team Providers Care Lathe Hand Name Role Phone Koki Vu MD Primary Care Provider [phone] Reason for Visit * Reason Onset Date Comments Nurse Triage 11/20/2024 Encounter Details Date Type Department Care Team ([facility] st Contact Info) Description 11/20/2024 Telephone [facility] [address] [place] [address] Koki Vu MD [address] [place] [address] Nurse Triage Social History Tobacco Use Types [...] 11/20/2024 1:17 PM EST [facility] [place] [id number], [place]. Pt reports last seen 06/24/25 in [facility] for bilateral wrist/hand pain. Since that time [...] documented as of this encounter Care Teams Lathe Hand Relationship Specialty Start Date End Date Koki Vu MD [address] [place] [address] PCP - General Family Medicine 10/23/20 Addie Labor Economics ProfessorLens Grinder 06/17/24 documented as of this encounter
--- OUTSIDE RECORDS SUMMARY | 2024-12-17 13:05 | XMS_ITS | Clinical Summary ---
Author Organization [facility] Address [address] [place] [address] Care Team Providers Care Passenger Train Braker Name Role Phone Unavailable Primary Care Provider [...] to complete this topic , [address] [place] [address]
--- OUTSIDE RECORDS SUMMARY | 2024-12-17 13:05 | XMS_ITS | Encounter Summary ---
Author Organization [employer] Address [address] [facility] 7t [place] [address] Care Team Providers Care Relief Operator Name Role Phone Koki Vu MD Primary Care Provider [phone] Encounter Details Date Type Department Care Team [...] 11:57 AM EST) Rast Allergen SEE NOTE [facility] Comment:SEE SCANNED RESULTS IN EMR 11/29/2024 11:5 7 AM EST 11/29/2024 11:57 AM EST us Generic External Data Provider HISTORICAL/NON OR DERABLE LABS Final Result Performing Organization Address City/State/[facility] Co de Phone Number [facility] [address] [place] [phone] documented in this encounter Visit Diagnoses Not on filedocumented in this encounter Additional Health Concerns Assessment Noted Time PHQ-9 Depression Total Score: 17 023 11:11 AM EDT documented as of this encounter Care Teams Relief Operator Relationship Specialty Start Date End Date Koki Vu MD [address] [place] [address] PCP - General Family Medicine 10/23/20 Addie Licensed Mental Health CounselorUrban Planning Professor 06/17/24 documented as of this encounter
--- OUTSIDE RECORDS SUMMARY | 2024-12-17 13:05 | XMS_ITS | Clinical Summary ---
Author Organization [facility] Address [address] [place] [address] Care Team Providers Care Elevator Repairer Apprentice Name Role Phone Jessica Rogers MD Primary Care Provider [phone] Social History Tobacco Use Types Packs/Day Years [...] age to complete this topic Care Teams Elevator Repairer Apprentice Relationship Specialty Start Date End Date Jessica Rogers MD [address] [place] [phone] PCP - General General Surgery 09/22/21
--- OUTSIDE RECORDS SUMMARY | 2024-12-17 13:05 | XMS_ITS | Encounter Summary ---
Author Organization [employer] Address [address] [facility] [address]t [place] [address] Care Team Providers Care First Beater Name Role Phone Koki Vu MD Primary Care Provider [phone] Encounter Details Date Type Department Care Team [...] documented as of this encounter Care Teams First Beater Relationship Specialty Start Date End Date Koki Vu MD [address] [place] [address] PCP - General Family Medicine 10/23/20 Addie Power Brake OperatorPhysical Instructor 06/17/24 documented as of this encounter
--- OUTSIDE RECORDS SUMMARY | 2024-12-17 13:05 | XMS_ITS | Referral Summary ---
Author Organization [facility] Address [address] [place] [address] Care Team Providers Care Senior Business Development Analyst Name Role Phone VuKoki Primary Care Provider [phone] Encounters Date Type Department Care Team Description 09/27/2024 10:50 AM EST Follow-Up [facility] [address] [place] [address] Pe Manager: Satinder Sanders, Dyspnea on exertion (Primary Dx); Moderate persistent asthma without complication 09/24/2024 Telephone [facility] [address] [place] [phone] Pe Manager: Katiana Pandya MA from Last 3 Months [...] reports 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 Psoriatic [...] ne, 13 Valent 06/07/2019 Pneumococcal conjugate PCV20,polysaccharide MXO170 conjugate, adjuvant, PF (Prevnar 20) 02/01/2024 RSV, [...] Treatment Not on file Insurance Care Teams Senior Business Development Analyst Relationship Specialty Start Date End Date Koki Vu [address] [place] [address] PCP - General 12/26/23
--- OUTSIDE RECORDS SUMMARY | 2024-12-17 13:06 | XMS_ITS | Encounter Summary ---
Author Organization [employer] Address [address] [facility] 7t [place] [address] Care Team Providers Care Weatherization Field Technician Name Role Phone Koki Vu MD Primary Care Provider [phone] Reason for Visit * Reason Comments Med Refill Encounter Details Date Type Department Care Team ([facility] st Contact Info) Description 03/28/2024 Refill [facility] [address] [place], [place] [phone] Koki Vu MD [address] [place] [address] Social History Tobacco Use Types Packs/Day Years [...] documented as of this encounter Care Teams Weatherization Field Technician Relationship Specialty Start Date End Date Koki Vu MD [address] [place] [address] PCP - General Family Medicine 10/23/20 Addie Assistant Inventory ManagerAssistant Inventory Manager 06/17/24 documented as of this encounter
--- OUTSIDE RECORDS SUMMARY | 2024-12-17 13:06 | XMS_ITS | Encounter Summary ---
Author Organization [employer] Address [address] [facility] 7t [place] [address] Care Team Providers Care Datacap Developer Name Role Phone Koki Vu MD Primary Care Provider [phone] Reason for Visit * Reason Comments Med Refill Encounter Details Date Type Department Care Team ([facility] st Contact Info) Description 10/25/[address] [facility] [address] [place], [place] [phone] Koki Vu MD [address] [place] [address] Social History Tobacco Use Types Packs/Day Years [...] documented as of this encounter Care Teams Datacap Developer Relationship Specialty Start Date End Date Koki Vu MD [address] [place] [phone] PCP - General Family Medicine 10/23/20 Addie Front Desk AssociateBeck Operator 06/17/24 documented as of this encounter
--- OUTSIDE RECORDS SUMMARY | 2024-12-17 13:06 | XMS_ITS | Encounter Summary ---
Author Organization [employer] Address [address] [place] [address] Care Team Providers Care Rotary Engraver Name Role Phone Koki Vu MD Primary Care Provider [phone] Encounter Details Date Type Department Care Team ([facility] st Contact Info) Description 09/27/2024 Telephone [facility]EDS [address] [place], [place] [phone] Koki Vu MD [address] [place] [address] Social History Tobacco Use Types Packs/Day Years [...] EST TC from Satinder flores DO with [facility] pulmonology requesting a call back from pcp to discuss further medical options. Best contact # [phone]. documented in this encounter Plan of Treatment Not on file documented as of this encounter Visit Diagnoses Not on filedocumented in this encounter Additional Health Concerns Assessment Noted Time PHQ-9 Depression Total Score: 17 023 11:11 AM EDT documented as of this encounter Care Teams Rotary Engraver Relationship Specialty Start Date End Date Koki Vu MD [address] [place] [address] PCP - General Family Medicine 10/23/20 Addie Rice Drier OperatorSupervisor Briar Shop 06/17/24 documented as of this encounter
--- OUTSIDE RECORDS SUMMARY | 2024-12-17 13:06 | XMS_ITS | Encounter Summary ---
Author Organization [employer] Address [address] [address] [address] [place] [address] Care Team Providers Care Sandblaster Paint Sprayer Name Role Phone Koki Vu MD Primary Care Provider Encounter Details Date Type Department Care Team (Late st Contact Info) Description 08/23/2023 Abstract [facility] [address] [place] [address] Koki Vu MD [address] [place] [address] Social History Tobacco Use Types Packs/Day Years [...] documented as of this encounter Care Teams Sandblaster Paint Sprayer Relationship Specialty Start Date End Date Koki Vu MD [address] [place] [address] PCP - General Family Medicine 10/23/20 Addie Janitorial SupervisorBaler 06/17/24 documented as of this encounter
--- OUTSIDE RECORDS SUMMARY | 2024-12-17 13:06 | XMS_ITS | Encounter Summary ---
Author Organization [employer] Address [address] [facility] 7t [place] [address] Care Team Providers Care Talent Acquisition Sourcer Name Role Phone Koki Vu MD Primary Care Provider [phone] Reason for Visit * Reason Comments Med Refill Encounter Details Date Type Department Care Team ([facility] st Contact Info) Description 10/25/2023 Refill [facility]S [address] [place], [place] [phone] Koki Vu MD [address] [place] [address] Social History Tobacco Use Types Packs/Day Years [...] documented as of this encounter Care Teams Talent Acquisition Sourcer Relationship Specialty Start Date End Date Koki Vu MD [address] [place] [phone] PCP - General Family Medicine 10/23/20 Addie Billing AdministratorCuffer 06/17/24 documented as of this encounter
--- OUTSIDE RECORDS SUMMARY | 2024-12-17 13:06 | XMS_ITS | Encounter Summary ---
Author Organization [employer] Address [address] [facility] [address], [place] [address] Care Team Providers Care Senior Foreman Name Role Phone Koki Vu MD Primary Care Provider [phone] Reason for Referral * Consultation (Routine) - Closed Specialty Diagnoses / Procedures Referred By Contac t Referred To Contact Rheumatology Diagnoses Erosion of bone Tirso Mayfield MD [address] [place] [address] Phone: tel: fax: [facility] [address] Phone: tel: fax: Referral ID Status Reason Start Date Expiration Date V isits Requested Visits Authorized [id number] Closed Specialty Services Required 08/02/2024 08/02/2025 1 1 Encounter Details Date Type Department Care Team (Late st Contact Info) Description 08/02/2024 Orders Only [facility] PEDS [address] [place] [address] Tirso Mayfield MD [address] [place] [address] Erosion of bone (Primary Dx) Social History [...] AM EDT) Rheumatoid Factor <13.0 <15.0 IU/mL [facility] Blood Venous blood specimen / Unknown 08/08/2024 10:40 AM EDT 08/08/2024 1:17 PM EDT Tirso Jara MD LAB BLOOD ORDERABL ES Final Result Performing Organization Address [facility] de Phone Number [facility] [address] [place] [phone] * Cyclic Citrullinated Peptide (CCP) Antibody (IgG) (08/08/2024 10:40 AM EDT) Cyclic Citrullinated Peptide <16 UNITS [facility] Comment:Reference RangeNegat shalom: <20Weak Positive: 20-39Moderate Positive: 40-59Strong Positive: >59THIS TEST WAS PERFORMED AT:[employer] [place] [phone] RECINOS MD Blood Venous blood specimen / Unknown 08/08/2024 10:40 AM EDT 08/08/2024 1:17 PM EDT Tirso Jara MD LAB BLOOD ORDERABL ES Final Result Performing Organization Address [facility] de Phone Number [facility] [address] [place] [phone] documented in this encounter Visit Diagnoses Diagnosis Erosion of bone- Primary documented in this encounter Additional Health Concerns Assessment Noted Time PHQ-9 Depression Total Score: 17 023 11:11 AM EDT documented as of this encounter Care Teams Senior Foreman Relationship Specialty Start Date End Date Koki Vu MD [address] [place] [address] PCP - General Family Medicine 10/23/20 Addie Hydrodynamics ProfessorStable Attendant 06/17/24 documented as of this encounter
== END 2024-12-17 11:45 | disposition home or self-care (01) ==
LOC: HO.RHE 10:48
PROVIDERS: PCP Family Medicine; Visit Provider Student in an Organized Health Care Education/Training Program
DX: M65.342 Trigger finger, left ring finger (principal); L40.50 Arthropathic psoriasis, unspecified; M15.9 Polyosteoarthritis, unspecified; Z79.60 Long term (current) use of unspecified immunomodulators and immunosuppressants
CPT/HCPCS: 20550; 99214

== ENCOUNTER → 2024-12-17 10:47 | Outpatient (BNVA) | payer MEDICAID, SELFPAY | PROVIDERS: PCP Family Medicine; Visit Provider Student in an Organized Health Care Education/Training Program | DX: M65.342 Trigger finger, left ring finger (principal); L40.50 Arthropathic psoriasis, unspecified; M15.9 Polyosteoarthritis, unspecified; Z79.60 Long term (current) use of unspecified immunomodulators and immunosuppressants | CPT/HCPCS: 20550; 99212 ==

== ENCOUNTER 2025-01-14 09:20 | Outpatient (REF) | payer MEDICAID, SELFPAY ==
--- OUTSIDE RECORDS SUMMARY | 2025-01-14 10:26 | XMS_ITS | Encounter Summary ---
Author Organization [employer] Address [address] [facility] 7t [place] [address] Care Team Providers Care Cutter Wet Machine Name Role Phone Koki Vu MD Primary Care Provider [phone] Reason for Referral * Consultation (Routine) - Pending Review Specialty Diagnoses / Procedures Referred By Contmike t Referred To Contact Endocrinology Diagnoses Acquired hypothyroidism Prediabetes Josee Collazo MD [address] [place] [address] Phone: tel: fax: Referral ID Status Reason Start Date Expiration Date Visits Requested Visits Authorized [id number] Pending Review Specialty Services Required 01/14/2025 01/14/2026 1 1 Encounter Details Date Type Department Care Team (Latest Contact Info) Description 01/14/2025 8:30 AM EDT Office Visit [facility] P[facility]S [address] [place] [address] Josee Collazo MD [address] [place] [address] Acquired hypothyroidism (Primary Dx); Prediabetes Social History Tobacco Use Types Packs/Day Years [...] Recorded Patient Health Questionnaire-2 Score 6 07/04/2023 Internet Access Answer Date Recorded Internet Access Q1 Yes 01/06/2025 Internet Access Q2 Not on file 01/06/2025 Sex and Gender Information Value Date Recorded Sex Assigned at Male 08/08/2022 10:33 AM EDT Legal Sex Male 10:33 AM EDT Gender Identity Male 08/08/2022 10:33 AM EDT Sexual Orientation Choose not to disclose 2021 10:33 AM EDT documented as of this encounter Last Filed Vital Signs Vital Sign Reading Time Taken Comments Blood Pressure 123/76 01/14/2025 8:43 AM EDT Pulse 70 01/14/2025 8:43 AM EDT Temperature 36.2 ??C (97.1 ??F) 01/14/2025 8:43 AM ED T Respiratory Rate 18 01/14/2025 8:43 AM EDT Oxygen Saturation 97% 01/14/2025 8:43 AM EDT Inhaled Oxygen Concentration - - Weight 75.8 kg (167 lb) 01/14/2025 8:43 AM EDT Height 157.5 cm (5' 2 ) 01/14/2025 8:43 AM EDT Body Mass Index 30.54 01/14/2025 8:43 AM EDT documented in this encounter Progress Notes * Josee Collazo MD - 01/14/2025 8:30 AM EDT Subjective Patient ID: Kvng Elkins is a 59 y.o. male who presents for No chief complaint on file.. Diabetes He presents for his follow-up diabetic visit. Diabetes type: prediabetes. His disease course has been stable. There are no hypoglycemic associated symptoms. There are no diabetic associated symptoms.There are no hypoglycemic complications. Symptoms are stable. There are no diabetic complications. Risk factors for coronary artery disease include male sex, obesity and family history. Current diabetic treatment includes diet. Review of Systems Constitutional: Negative. Respiratory: Negative. Cardiovascular: Negative. Gastrointestinal: Negative. Genitourinary: Negative. Objective Physical Exam Constitutional: Appearance: Normal appearance. Cardiovascular: Rate and Rhythm: Normal rate and regular rhythm. Pulmonary: Effort: Pulmonary effort is normal. Breath sounds: Normal breath sounds. Neurological: General: No focal deficit present. Mental Status: He is alert. Psychiatric: Mood and Affect: Mood normal. Behavior: Behavior normal. Assessment/Plan Diagnoses and all orders for this visit: Acquired hypothyroidism Comments: Stable No changes in meds Orders: - TSH with Reflex to Free T4; Future - Referral to Endocrinology; Future Prediabetes Comments: Referred to Endo as per pt request Advised Low sugar and Low carb diet. Counseled regarding self-monitoring of blood glucose. Counseled re: potential co-morbidities including cardiovascular disease. Counseled re: potential co-morbidities include neuropathy and retinopathy. Counseled re: potential co-morbidities include nephropathy. Orders: - Basic Metabolic Panel; Future - Lipid Panel, Standard; Future - Hepatic Function Panel; Future - Hemoglobin A1c; Future - Albumin, Random Urine W/Creatinine; Future - Referral to Endocrinology; Future documented in this encounter Plan of Treatment Scheduled Orders Name Type Priority Associated Diagnoses Orde r Schedule Basic Metabolic Panel Lab Routine Prediabetes Expected: 01/14/2025 (Approximate), Expires: 01/14/2026 Lipid Panel, Standard Lab Routine Prediabetes Expected: 01/14/2025 (Approximate), Expires: 01/14/2026 Hepatic Function Panel Lab Routine Prediabetes Expected: 01/14/2025 (Approximate), Expires: 01/14/2026 TSH with Reflex to Free T4 Lab Routine Acquired hypothyroidism Expected: 01/14/2025 (Approximate), Expires: 01/14/2026 Hemoglobin A1c Lab Routine Prediabetes Expected: 01/14/2025 (Approximate), Expires: 01/14/2026 Albumin, Random Urine W/Creatinine Lab Routine Prediabetes Expected: 01/14/2025 (Approximate), Expires: 01/14/2026 Scheduled Referrals Name Type Priority Associated Diagnoses Order Schedule Referral to Endocrinology Outpatient Referral Routine Acquired hypothyroidism Prediabetes Expected: 01/14/2025 (Approximate), Expires: 01/14/2026 documented as of this encounter Visit Diagnoses Diagnosis Acquired hypothyroidism- Primary Unspecified hypothyroidism Prediabetes Other abnormal glucose documented in this encounter Additional Health Concerns Assessment Noted Time PHQ-9 Depression Total Score: 17 023 11:11 AM EDT documented as of this encounter Care Teams Cutter Wet Machine Relationship Specialty Start Date End Date Koki Vu MD [address] [place] [phone] PCP - General Family Medicine 10/23/20 Addie Beet FlumerDrilling Rig Operator 06/17/24 documented as of this encounter
--- OUTSIDE RECORDS SUMMARY | 2025-01-14 10:26 | XMS_ITS | Clinical Summary ---
Author Organization [facility] Address [address] [place] [address] Care Team Providers Care Truck Assembler Name Role Phone Vu Koki Primary Care Provider [phone] Allergies No known active allergies Medications [...] s:Dyspnea on exertion,Moderate persistent asthma without complication (HCC) Inhale 1 puff by mouth 2 times a day. Rinse mouth with water after use. Do not swallow. 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 Psoriatic [...] Already f w psychiatrist and therapist at [facility] ---advised to continue care and may need eval if meds can be adjusted Immunizations Immunization Administration Dates Next Due Hepatitis A Vaccine, Adult Dosage 08/14/2019 Hepatitis B adult (ENGERIX-B ADULT) vaccine 1 mL IM 08/14/2019 Influenza, Injectable, Quadr ivalent, Contains Preservative 09/06/2018,12/11/2017 Influenza, Injectable, Quadr ivalent, Preservative Free 07/31/2023,07/02/2021,08/26/2020,2018 Pneumococcal Conjugate Vacci ne, 13 Valent 06/07/2019 Pneumococcal conjugate PCV20,polysaccharide [id number] conjugate, adjuvant, PF (Prevnar 20) 02/01/2024 RSV, [...] 2:35 PM EDT Sexual Orientation Straight 03/26/2024 2 :35 PM EDT Last Filed Vital Signs Vital [...] history exists Alcohol/Substance Use Screening 10/09/2024 Depression Screening and Follow-Up 10/09/2024 Social Drivers of Health Evelyn ual [...] 06/24/2024, , 07/02/2021, Additional history exists Insurance [employer] Care Teams Truck Assembler Relationship Specialty Start Date End Date Koki Vu [address] [place] [address] PCP - General 12/26/23
--- OUTSIDE RECORDS SUMMARY | 2025-01-14 10:26 | XMS_ITS | Encounter Summary ---
Author Organization [employer] Address [address] 7[address] [place] [address] Care Team Providers Care Dog Bather Name Role Phone Koki Vu MD Primary Care Provider [phone] Encounter Details Date Type Department Care Team (Latest Contact Info) Description 01/14/2025 Travel Social History Tobacco Use Types Packs/Day [...] documented as of this encounter Care Teams Dog Bather Relationship Specialty Start Date End Date Koki Vu MD [address] [place] [address] PCP - General Family Medicine 10/23/20 Addie [employer] Ch[employer] DirectorTax Investigator 06/17/24 documented as of this encounter
--- OUTSIDE RECORDS SUMMARY | 2025-01-14 10:26 | XMS_ITS | Encounter Summary ---
Author Organization [employer] Address [address] [facility] [address] 7t [place] [address] Care Team Providers Care Business Strategist Name Role Phone Koki Vu MD Primary Care Provider [phone] Encounter Details Date Type Department Care Team (Late st Contact Info) Description 02/05/2024 Orders Only [facility] MED[facility]INE [address] [place] [address] Provider, MD Nasima Social History Tobacco Use [...] as of this encounter Care Teams Business Strategist Relationship Specialty Start Date End Date Koki Vu MD [address] [place] [address] PCP - General Family Medicine 10/23/20 Addie District Commercial SuperintendentProfessor Of Environmental Engineering 06/17/24 documented as of this encounter
--- OUTSIDE RECORDS SUMMARY | 2025-01-14 10:26 | XMS_ITS | Referral Summary ---
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 Psoriatic arthritis [...] Already f w psychiatrist and therapist at [facility] ---advised to continue care and may need eval if meds can be adjusted Immunizations Immunization Administration Dates Next Due Hepatitis A Vaccine, Adult Dosage 08/14/2019 Hepatitis B adult (ENGERIX-B ADULT) vaccine 1 mL IM 08/14/2019 Influenza, Injectable, Quadr ivalent, Contains Preservative 09/06/2018,12/11/2017 Influenza, Injectable, Quadr ivalent, Preservative Free 07/31/2023,07/02/2021,08/26/2020,2018 Pneumococcal Conjugate Vacci ne, 13 Valent 06/07/2019 Pneumococcal conjugate PCV20,polysaccharide [id number] conjugate, adjuvant, PF (Prevnar 20) 02/01/2024 RSV, [...] Plan [place] [id number] Care Teams Pump Erector Relationship Specialty Start Date End Date Koki Vu [address] [place] [phone] PCP - General 12/26/23
--- OUTSIDE RECORDS SUMMARY | 2025-01-14 10:26 | XMS_ITS | Clinical Summary ---
Author Organization [employer] Address [address] [facility] 7t [place] [address] Care Team Providers Care Android Programmer Name Role Phone Koki Vu MD Primary Care Provider [phone] Allergies No known active allergies Medications lactulose [...] BEDTIME 90 tablet 1 07/30/20 24 Active triamcinolone (Kenalog) 0.1 % cream Mix with cerave cream and apply 1x/d 80 g 2 11/28/19 25 Active pregabalin (Lyrica) 225 MG capsule TAKE 1 CAPSULE BY MOUTH TWICE DAILY 60 capsule 1 12/02/19 25 Active Active Problems Problem Noted Date [...] reports he needs new TSH border for 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 Assessment & [...] Already f w psychiatrist and therapist at [facility] ---advised to continue care and may need eval if meds can be adjusted Chronic low back pain 12/11/2017 Assessment & Plan (06/13/2023 1:43 PM EDT): Not responsive to opiate medications. At this point will send a trial of Lyrica. Will need to proceed with PA for this. Encounters Date Type Department Care Team Description 01/14/2025 8:30 AM EDT Office Visit [facility] MED & PEDS [address] [place], [place] [phone] Josee Collazo MD Acquired hypothyroidism (Primary Dx); Prediabetes 01/14/2025 Travel 01/06/[address] [facility] [address] [place], [place] [phone] Koki Vu MD Pre-visit Planning (SDOH screening positive and Tobacco screening negative) 01/01/[address] [facility] [address] [place] [address] Koki Vu MD Referral 12/20/2024 Population Health Risk Score [facility] ([facility] Department [address] [place] [phone] Provider, Population Health Generic 12/01/2024 Refill [facility] MED & PEDS [address] [place] [address] Koki Vu MD 11/29/2024 Orders Only GENERIC EXTERNAL DATA DEPARTMENT Provider, Generic External Data 11/28/2024 9:40 AM EST Office [address] [facility] [address] [place] [address] Starr Escobar MD Atopic dermatitis in adult (Primary Dx); Chronic migraine without aura without status migrainosus, not intractable 11/22/2024 8:30 AM EST Office Visit [facility] MED & PEDS [address] [place] [address] Tirso Mayfield MD Psoriatic arthritis ([facility]) (Primary Dx) 11/22/2024 Travel 11/20/2024 Telephone [facility] MED & PEDS [address] [place] [address] Koki Vu MD Nurse Triage 10/21/2024 Orders Only [facility] External Provider, [facility] from Last 3 Months Immunizations Name Administration [...] your housing situation today? I have mendy rocio 07/27/[address] you li [...] Mass Index 30.54 01/14/2025 8:43 AM EDT Plan of Treatment Health Maintenance [...] history exists Depression Screening 07/04/2024 07/04/2023, 07/04/20 Tobacco Screening 07/26/2025 07/26/2024 SDOH Screening 01/06/2026 01/06/2025 FIT DNA/Cologuard 08/10/2026 08/10/2023 Lipid Panel 04/15/2027 [...] 11:57 AM EST) Rast Allergen SEE NOTE [facility] Comment:SEE SCANNED RESULTS IN EMR 11/29/2024 11:5 7 AM EST 11/29/2024 11:57 AM EST us Generic External Data Provider HISTORICAL/NON OR DERABLE LABS Final Result [facility] [address] [place] [phone] * MR Lumbar Spine w/o Contrast (10/21/2024 9:55 AM EST) Anatomical Region Laterality Modality Spine, L-spine Magnetic Resonan ce 10/21/2024 9:55 AM EST Narrative 10/22/2024 3:45 PM EST ? [facility] ?[address] ?[place] [address] ? Magnetic Resonance Report ? Signed ? Patient: Lynnette Elkins,Kvng E ?MR#: [id number] ?? [id number] ? : 1965 ?Acct:[id number] ? Age/Sex: 59 / M ?ADM Date: 10/21/24 ? Loc: HO.MRI ? Attending Dr: Winston Boykin MD ? Ordering Physician: Winston Boykin MD ?? Date of Service: 10/21/24 ?? Procedure(s): MR lumbar spine wo con ?? Accession Number(s): [id number] ? cc: Winston Boykin MD; Koki Vu [...] DD/ 0955 ? TD/TT: 10/21/24 1020 ? 21 Dealer: ? Procedure Note Skylar, David - 10/22/[address] [address] Magnetic Resonance Report Signed Patient: Kvng Ramon EMR#: [id number] : 1965Acct:[id number] Age/Sex: 59 / MADM Date: 10/21/24 Loc: HO.MRI Attending Dr: Winston Boykin MD Ordering Physician: Winston Boykin MD Date of Service: 10/21/24 Procedure(s): MR lumbar spine wo con Accession Number(s): [id number] cc: Winston Boykin MD; Koki Vu MD [...] 10/22/24 1542 DD/ 0955 TD/TT: 10/21/24 1020 21 Dealer: [facility] External Provider IMG MRI PROCEDURES Final Result * Hepatitis Panel, General (08/13/2024 11:49 AM EST) Pathologist [facility] Hepatitis A IgM Nonreactive Nonreactive [facility] Comment:IgM antibodies to TORREZ V not detected; does not exclude earlyacute or recovered HAV infection. ~Hepatitis B Surface Antibody NONREACTIVE Nonreactive [facility] Comment:Nonreactive: < 8.00 mIU/mL Hepatitis B Core Antibody Nonreactive Nonreactive [facility] Hepatitis C Antibody Nonreactive Nonreactive [facility] Comment:Antibodies to HCV no t detected; does not exclude early acuteHCV infection. Hepatitis B Surface Ag Negative Negative [facility] 08/13/2024 11:4 9 AM EST 08/13/2024 11:49 AM EST Generic External Data Provider LAB BLOOD ORDERAB LES Final Result Performing Organization Address City/State/[facility] Co de Phone Number [facility] [address] [place] [phone] * Cologuard?? colon cancer screening (08/10/2023 3:59 PM EDT) Cologuard Result Negative Negative 08/17/20 9:57 AM EST [facility] (CLIA #:[id number]) Comment: NEGATIVE TEST RESULT. A negative Cologuard [...] cancer. ??Following a negative Cologuard result, the [place] Cancer Society and U.S. Multi-Society Task Force screening guidelines recommend a Cologuard re-screening interval of 3 years. References: [place] Cancer Society Guideline for Colorectal Cancer Screening: https://www.cancer.org/cancer/fqjlk-rhtxyh-gvqlnd/lgnjvilze-giyasdukp-txlfoij/ac s-rec ommendations.html.; Delroy DK, Reer CR, Guy RochaK, Colorectal Cancer Screening: Recommendations for Physicians and Patients from the U.S. Multi-Society Task Force on Colorectal Cancer Screening , Am J Gastroenterology 2017; 112:1066-1920. TEST DESCRIPTION: Composite algorithmic analysis of stool [...] (Harris Albarran al, N Engl J Med 2014;370(14):4898-9825.) Cologuard may produce a false negative or false positive result (no colorectal cancer or precancerous polyp present at colonoscopy follow up). A negative Cologuard test result does not guarantee the absence of CRC or advanced adenoma (pre-cancer). The current Cologuard screening interval is every 3 years. ([place] Cancer Society and U.S. Multi-Society Task Force). Cologuard performance data in a 10,000 patient pivotal study using colonoscopy as the reference method can be accessed at the following location: www.[employer].com/results. Additional description of the Cologuard test process, warnings and precautions can be found at www.cologuard.com. Stool specimen (specimen) 08/10/2023 3:59 PM EDT 08/11/2023 6:19 PM EDT Koki Vu MD LAB MOLECULAR DIAGNOSTICS ORD ERABLES Final Result [facility] (CLIA #:[id number]) [place] [address], * Hemoglobin A1c (05/15/2023 12:13 PM EDT) Hemoglobin A1c 5.7 % [facility] Comment:Hemoglobin A1C Refer ence Range Adults: 4.8 - 6.0 % Non diabetic: < 6.0 % Goal: < 7.0 %Additional Action Suggested: > 8.0 %Note: Hemoglobin A1c results are invalid for patients with abnormal amounts of HbF. Blood transfusions may impact the HbA1c concentration in the patient sample. Estimated Average Glucose 117 mg/dL [facility] Comment:eAG = Estimated ave rage glucose which is %A1C expressed asaverage glucose, using the formula of the F3J-FrghjeaDmrswbh Glucose study (ADAG), Diabetes Care, Vol.31,#8,May. 2007 Blood Venous blood specimen / Unknown 05/15/2023 12:13 PM EDT 05/15/2023 2:16 PM EDT Koki Vu MD LAB BLOOD ORDERABLES Final Re sult Performing Organization Address City/[facility]/ZIP Co de Phone Number [facility] [address] [place] [phone] * (ABNORMAL) LIPID PANEL, STANDARD (04/15/2022 [...] ?? Mo JAY et al. RADHA. 2013;310(19): 3963-4910 ?? (http://education.[employer]/faq/CVF146) Non-HDL Cholesterol 151(H) <130 mg/dL (calc) [facility] Comment: For patients with diabetes plus 1 major ASCVD risk ?? factor, treating to a non-HDL-C goal of <100 mg/dL ?? (LDL-C of <70 mg/dL) is considered a therapeutic ?? option. Triglycerides 109 <150 mg/dL [facility] 04/15/2022 9:27 AM EDT Koki Vu MD LAB BLOOD ORDERABLES Final Re sult [facility] [address] * Hm Colonoscopy (04/17/2018 6:07 AM EDT) Historical Provider HEALTH MAINTENANCE Final Result from Last 3 Months or Most Recently Relevant to Health Maintenance Insurance [address] [address] C3 Care Teams Android Programmer Relationship Specialty Start Date End Date Koki Vu MD [address] [place] [address] PCP - General Family Medicine 10/23/20 Addie Supplies PackerMobile Ui/Ux Designer 06/17/24
--- OUTSIDE RECORDS SUMMARY | 2025-01-14 10:26 | XMS_ITS | Clinical Summary ---
Author Organization [facility] Address [address] [place] [address] Care Team Providers Care Building Tech Name Role Phone Jessica Rogers MD Primary Care Provider [phone] Social History Tobacco Use Types Packs/Day Years [...] Influencers of Health Screening 09/07/2022 COVID-19 Vaccine (2023-2 5 season) 2024 Influenza Vaccine (Season Ended) 2025 RSV Immunization Adult Patie nts (1 - 1-dose 75+ series) 2038 HIB [...] age to complete this topic Meningococcal B Vaccine Aged Out No l onger eligible based on patient's age to complete [...] age to complete this topic Care Teams Building Tech Relationship Specialty Start Date End Date Jessica Rogers MD [address] [place] [address] [phone] PCP - General General Surgery 09/22/21
--- OUTSIDE RECORDS SUMMARY | 2025-01-14 10:27 | XMS_ITS | Encounter Summary ---
Author Organization [employer] Address [address] [facility] [address]t [place] [address] Care Team Providers Care Power Marketer Name Role Phone Koki Vu MD Primary Care Provider [phone] Reason for Visit * Reason Comments Med Refill Encounter Details Date Type Department Care Team ([facility] st Contact Info) Description 10/25/2023 Refill [facility] MED & PEDS [address] [place], [place] [phone] Koki Vu MD [address] [place] [address] Social History Tobacco Use Types Packs/Day Years [...] documented as of this encounter Care Teams Power Marketer Relationship Specialty Start Date End Date Koki Vu MD [address] [place] [phone] PCP - General Family Medicine 10/23/20 Addie Personnel Training OfficerWarehouse Forklift Operator 06/17/24 documented as of this encounter
--- OUTSIDE RECORDS SUMMARY | 2025-01-14 10:27 | XMS_ITS | Encounter Summary ---
Author Organization [employer] Address [address] [facility] [address]t [place] [address] Care Team Providers Care Career Development Director Name Role Phone Koki Vu MD Primary Care Provider [phone] Reason for Visit * Reason Onset Date Comments Durable Medical Equipment 02/07/2024 Encounter Details Date Type Department Care Team ([facility] st Contact Info) Description 02/07/2024 Telephone [facility] MED & PEDS [address] [place] [address] Koki Vu MD [address] [place] [address] Durable Medical Equipment Social History Tobacco Use [...] documented as of this encounter Care Teams Career Development Director Relationship Specialty Start Date End Date Koki Vu MD [address] [place] [address] PCP - General Family Medicine 10/23/20 Addie Insulation Board Coater OperatorInstaller Inspector Final 06/17/24 documented as of this encounter
--- OUTSIDE RECORDS SUMMARY | 2025-01-14 10:27 | XMS_ITS | Encounter Summary ---
Author Organization [employer] Address [address] [facility] 7t [place] [address] Care Team Providers Care Ppa Teacher Name Role Phone Koki Vu MD Primary Care Provider [phone] Reason for Visit * Reason Comments Med Refill Encounter Details Date Type Department Care Team ([facility] st Contact Info) Description 03/28/2024 Refill [facility] MED & PEDS [address] [place], [place] [phone] Koki Vu MD [address] [place] [address] Social History Tobacco Use Types Packs/Day Years [...] documented as of this encounter Care Teams Ppa Teacher Relationship Specialty Start Date End Date Koki Vu MD [address] [place] [address] PCP - General Family Medicine 10/23/20 Addie Water Quality AnalystJunior Programmer 06/17/24 documented as of this encounter
--- OUTSIDE RECORDS SUMMARY | 2025-01-14 10:27 | XMS_ITS | Encounter Summary ---
Author Organization [employer] Address [address] [facility] [address], [place] [address] Care Team Providers Care Home Appliance Tech Name Role Phone Koki Vu MD Primary Care Provider [phone] Reason for Referral * Consultation (Routine) - Closed Specialty Diagnoses / Procedures Referred By Contac t Referred To Contact Rheumatology Diagnoses Erosion of bone Tirso Mayfield MD [address] [place] [address] Phone: tel: fax: [facility] [address] Phone: tel: fax: Referral ID Status Reason Start Date Expiration Date V isits Requested Visits Authorized [id number] Closed Specialty Services Required 08/02/2024 08/02/2025 1 1 Encounter Details Date Type Department Care Team (Late st Contact Info) Description 08/02/2024 Orders Only [facility] MED & PEDS [address] [place] [address] Tirso Mayfield MD [address] [place] [address] Erosion of bone (Primary Dx) Social History [...] AM EDT) Rheumatoid Factor <13.0 <15.0 IU/mL [facility] Blood Venous blood specimen / Unknown 08/08/2024 10:40 AM EDT 08/08/2024 1:17 PM EDT Tirso Jara MD LAB BLOOD ORDERABL ES Final Result Performing Organization Address [facility] de Phone Number [facility] [address] [place] [phone] * Cyclic Citrullinated Peptide (CCP) Antibody (IgG) (08/08/2024 10:40 AM EDT) Cyclic Citrullinated Peptide <16 UNITS [facility] Comment:Reference RangeNegat shalom: <20Weak Positive: 20-39Moderate Positive: 40-59Strong Positive: >59THIS TEST WAS PERFORMED AT:[facility] [place] [phone] RECINOS MD Blood Venous blood specimen / Unknown 08/08/2024 10:40 AM EDT 08/08/2024 1:17 PM EDT Tirso Jara MD LAB BLOOD ORDERABL ES Final Result Performing Organization Address [facility] de Phone Number [facility] [address] [place] [phone] documented in this encounter Visit Diagnoses Diagnosis Erosion of bone- Primary documented in this encounter Additional Health Concerns Assessment Noted Time PHQ-9 Depression Total Score: 17 023 11:11 AM EDT documented as of this encounter Care Teams Home Appliance Tech Relationship Specialty Start Date End Date Koki Vu MD [address] [place] [address] PCP - General Family Medicine 10/23/20 Addie Disassembler ProductRn Patient Services 06/17/24 documented as of this encounter
--- OUTSIDE RECORDS SUMMARY | 2025-01-14 10:27 | XMS_ITS | Encounter Summary ---
Author Organization [employer] Address [address] [facility] [address]t [place] [address] Care Team Providers Care Center Receptionist Name Role Phone Koki Vu MD Primary Care Provider [phone] Reason for Visit * Reason Comments Med Refill Encounter Details Date Type Department Care Team ([facility] st Contact Info) Description 10/25/2023 Refill [facility] CHC MED & PEDS [address] [place], [place] [phone] Koki Vu MD [address] [place] [address] Social History Tobacco Use Types Packs/Day Years [...] documented as of this encounter Care Teams Center Receptionist Relationship Specialty Start Date End Date Koki Vu MD [address] [place] [phone] PCP - General Family Medicine 10/23/20 Addie Injection Molding SupervisorSolar Sales Manager 06/17/24 documented as of this encounter
--- OUTSIDE RECORDS SUMMARY | 2025-01-14 10:27 | XMS_ITS | Encounter Summary ---
Author Organization [employer] Address [address] [place] [address] Care Team Providers Care Affiliate Marketing Specialist Name Role Phone Koki Vu MD Primary Care Provider [phone] Encounter Details Date Type Department Care Team (Late st Contact Info) Description 08/23/2023 Abstract [facility] [address] [place] [address] Koki Vu MD [address] [place] [address] Social History Tobacco Use Types Packs/Day Years [...] documented as of this encounter Care Teams Affiliate Marketing Specialist Relationship Specialty Start Date End Date Koki Vu MD [address] [place] [address] PCP - General Family Medicine 10/23/20 Addie Pot PullerBilingual Instructor 06/17/24 documented as of this encounter
--- OUTSIDE RECORDS SUMMARY | 2025-01-14 10:27 | XMS_ITS | Encounter Summary ---
Author Organization [employer] Address [address] [facility] [address] [address] [place] [address] Care Team Providers Care Cattle Producers Name Role Phone Koki Vu MD Primary Care Provider [phone] Encounter Details Date Type Department Care Team ([facility] st Contact Info) Description 09/27/2024 Telephone [facility] CHC MED & PEDS [address] [place], [place] [phone] Koki Vu MD [address] [place] [address] Social History Tobacco Use Types Packs/Day Years [...] EST TC from Satinder flores DO with [facility] pulmonology requesting a call back from pcp to discuss further medical options. Best contact # [phone]. documented in this encounter Plan of Treatment Not on file documented as of this encounter Visit Diagnoses Not on filedocumented in this encounter Additional Health Concerns Assessment Noted Time PHQ-9 Depression Total Score: 17 023 11:11 AM EDT documented as of this encounter Care Teams Cattle Producers Relationship Specialty Start Date End Date Koki Vu MD [address] [place] [phone] PCP - General Family Medicine 10/23/20 Addie Batch UnloaderAddiction Therapist 06/17/24 documented as of this encounter
--- OUTSIDE RECORDS SUMMARY | 2025-01-14 10:27 | XMS_ITS | Clinical Summary ---
Author Organization [facility] Address [address] [place] [address] Care Team Providers Care Lens Inserter Name Role Phone Unavailable Primary Care Provider [...] to complete this topic , [address] [place] [address]
[2025-01-14 14:31] LABS: Estimated Average Glucose 126 mg/dL; Hemoglobin A1C 161.8569 umol/L; Total Hemoglobin (HGBA1C) 3818.6288 umol/L
[2025-01-14 14:40] LABS: Alanine Aminotransferase 35 U/L (0-40); Albumin Level 4.1 g/dL (3.5-5.0); Anion Gap 10 (12-20); Aspartate Amino Transferase 35 U/L (5-37); Bilirubin Direct 0.1 mg/dL (0.0-0.5); Bilirubin Total 0.3 mg/dL (0.0-1.0); Blood Urea Nitrogen 15 mg/dL (9-16); Calcium 9.1 mg/dL (8.4-10.2); Carbon Dioxide 26 mmol/L (22-29); Chloride 110 mmol/L (96-108); Cholesterol 193 mg/dL (<200); Estimated Glomerular Filt Rate > 60; Glucose Random 90 mg/dL (60-115); HDL Cholesterol 42 mg/dL (>40); LDL Cholesterol Calculated 134 mg/dL (<100); Potassium 4.1 mmol/L (3.3-5.1); Sodium 142 mmol/L (135-145); Total Protein 6.8 g/dL (6.5-8.0); Triglycerides 86 mg/dL (<150)
[2025-01-14 14:58] LABS: Alkaline Phosphatase 85 U/L (39-117)
[2025-01-14 14:59] LABS: TSH reflex Free T4 0.88 uIU/mL (0.32-4.0)
== END 2025-01-14 09:21 | disposition home or self-care (01) ==
LOC: HO.CHCLDS 09:20
PROVIDERS: Visit Provider Student in an Organized Health Care Education/Training Program
DX: R73.03 Prediabetes (principal); E03.9 Hypothyroidism, unspecified
CPT/HCPCS: 36415; 80048; 80061; 80076; 83036; 84443

== ENCOUNTER 2025-01-16 08:48 | Outpatient (AMB) | payer MEDICAID, SELFPAY ==
[2025-01-16 08:57] VITALS: PULSE 76; O2SAT 96; BMI 30.8
--- NOTE | 2025-01-16 08:57 | A.OFFVIS_ITS ---
Vital Signs 3 01/16/25 08:57 Height 5 ft 3 in Weight 174 lb BMI 30.8 Pulse 76 Pulse Source Pulse Oximeter Pulse Oximetry (%) 96 Oxygen Delivery Method Room Air Intake Visit Reasons: Follow Up Intake Note: patient following up on MRI done 08/04/24 and med trial sumatriptan Retail Loan Originator Required: Yes Retail Loan Originator Services: Retail Loan Originator Present Retail Loan Originator Name: araseli lance Information Interpreted: non-clinical & clinical Allergies fremanezumab-vfrm [From ONTRAPORT Autoinjector] Allergy (Unknown, Verified 01/16/25 08:58) Rash Medication List - Last Reconciled 01/16/25 by CARO Cunningham albuterol sulfate 90 mcg/actuation (ProAir HFA) 2 puffs inhalation Q6H PRN atorvastatin 80 mg PO BEDTIME azelastine 137 mcg (0.137 mL) intranasal BID 30 days bumetanide 1 mg PO DAILY 30 days buspirone 15 mg PO BID celecoxib (Celebrex) 200 mg PO BID PRN cholecalciferol (vitamin D3) 50 mcg PO DAILY diclofenac sodium 1% (Voltaren Arthritis Pain) 2 grams topical QID duloxetine 20 mg PO epinephrine IM DIRECTED esomeprazole magnesium 40 mg PO DAILY etanercept (Enbrel SureClick) 50 mg subcut QWEEK fluticasone propion-salmeterol 250-50 mcg/dose (Advair Diskus) 1 ea PO BID fluticasone propionate 50 mcg/actuation 1 spray intranasal DAILY levothyroxine 88 mcg PO DAILY lidocaine 5% 1 patch topical DAILY loratadine 10 mg PO DAILY magnesium oxide 400 mg PO DAILY 90 days methocarbamol 500 mg PO BEDTIME 90 days nortriptyline 10 mg PO BEDTIME polyethylene glycol 3350 (Miralax) 17 grams PO BID pregabalin 225 mg PO BID riboflavin (vitamin B2) 400 mg PO DAILY 90 days sucralfate 10 mL PO BID sumatriptan succinate 50 - 100 mg orally at onset of headache, may repeat in 2 hrs PRN; max 2 tabs per day or 4 tabs/week (may take with Tylenol) 30 days triamcinolone acetonide 0.1% appl topical DAILY HPI Comments Details: 59-yr-old male presents for f/u visit of DAYNA and headache. Pt is accompanied by his . Patient reports that he continues to have neck pain. Following the cervical spine MRI which showed cervical degenerative disc disease, patient has seen neurosurgery and continue to follow-up with pain management. He is under consideration to trial a sprint PNS procedure. Pt reports he is having a constant migraine headache, which is associated with photophobia, phonophobia, nausea, nausea, green ball, activity intolerance. Patient started Ajovy, but generally he developed small rash after the 1st injection, and then more diffuse urticaria rash after the 2nd injection. It is unclear if he had tongue swelling or shortness breath with this. He did see treatment of this from an outside provider, given a steroid cream, and the rash resolved. The Ajovy has been added to his allergy list. Patient does feel that sumatriptan was helpful. Patient continues to be compliant with his CPAP, overall usage 100% in his residual AHI is less than 1 per hour. He does note that the air pressure can be bothersome especially in his nose. He denies excessive snoring when he does not use his CPAP. Is prone to nasal congestion, does use Flonase. 07/09/2024 HPI: He continues to have constant neck and head pressure which can move into his face, and at times the neck has painful clicking which radiates up the back of the head, more so on the right, which is a stabbing pain and also into his shoulders. He is generally photophobic. Headache is a/w photophobia, phonophobia, nausea, brain fog, activity intolerance. Sometimes he cannot keep his glasses on d/t allodynia. He states the headache intensity varies- moderate- severe depending in the time. The headache makes it difficult to sleep. Is taking Amitriptyline at times, as it is not tolerated- makes him too sleepy. He is again seeing pain management. He is f/b rheumatolgy for psoriatric arthitis. He is f/b ENT for Mild esophageal dysmotility, dysphagia, globus sensation, hoarseness. Nov 2023, MR/MR head/brain wo con IMPRESSION: No acute intracranial process. Normal MRI of the brain. Upper cervical spondylosis. 11/16/23, CT/CT soft tissue neck w IV con IMPRESSION: 1. There is no cervical lymphadenopathy. No masses are demonstrated in the neck. 2. The study redemonstrates the sequelae of the ACDF at C5-C6 and C6-C7. There is marked narrowing of intervertebral disc height at C4-C5. 3. There is a relatively well-defined area of enhancement in the right floor of mouth, which may be consistent with a varix; this is unchanged. Pt reports he continues to have some difficulty breathing when he uses his CPAP. Feels the pressure is too strong. [employer] Compliance Report Usage 06/09/2024 - 07/08/2024 Usage days 29/30 days (97%) >= 4 hours 29 days (97%) < 4 hours 0 days (0%) Usage hours 181 hours 55 minutes Average usage (total days) 6 hours 4 minutes Average usage (days used) 6 hours 16 minutes Median usage (days used) 6 hours 12 minutes Total used hours (value since last reset - 07/08/2024) 4,801 hours [employer] 11 AutoSet Serial number [id number] Mode AutoSet Min Pressure 6 cmH2O Max Pressure 10 cmH2O EPR Ramp Only EPR level 2 Response Soft Therapy Pressure - cmH2O Median: 7.1 95th percentile: 9.0 Maximum: 9.6 Leaks - L/min Median: 7.1 95th percentile: 29.8 Maximum: 42.5 Events per hour AI: 0.4 HI: 0.2 AHI: 0.6 Apnea Index Central: 0.1 Obstructive: 0.3 Unknown: 0.0 RERA Index 0.3 PFSH 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 Venous congestion Pain in right lower leg Lipoma of scalp Kidney cysts Spondylosis of thoracic spine Spondylosis of lumbar spine Schatzki's ring Fatty liver HTN (hypertension) Pre-diabetes Dysphagia Asthma Hx of chest pain DAYNA on CPAP Hypothyroid Psoriasis Psoriatic arthritis Chronic pain Mood disorder Depression Avascular necrosis Chronic pain syndrome Spondylosis of lumbar region without myelopathy or radiculopathy Spondylosis, cervical Degeneration, intervertebral disc, cervical Surgical History History of back surgery History of surgery Status post excision of lipoma (~10/21/21) Status post cardiac catheterization Hx of cardiac cath H/O neck surgery Hx of hand surgery Hx of endoscopy History of colonoscopy Family History Father Cirrhosis Alcoholism Mother Diabetes HTN (hypertension) Parkinson disease Brother Cirrhosis Alcoholism Social History Household Members: Spouse and Children Are you a primary patient care representative to a significant other at home: No Do you presently have visiting nurse or other home services: No Alcohol intake: never Patient Tobacco Use Status: Former Tobacco user Tobacco use type: Cigarette Second Hand Smoke Exposure: No Current occupational status: disabled Current occupation: rt handed Physical Exam Vital Signs: Last Vital Signs Pulse 76 01/16/25 08:57 Pulse Ox 96 01/16/25 08:57 Oxygen Delivery Method Room Air 01/16/25 08:57 BMI result Body Mass Index 30.8 Const General: cooperative and no acute distress Orientation/consciousness: patient oriented x3 Resp Effort & Inspection: normal respiratory effort and able to speak in complete sentences Neuro General: patient oriented x3 Cranial nerves: Yes CN's II-XII intact bilaterally Cognition (Neuro): normal cognition Psych Appearance: grossly normal Mental Status: mental status grossly normal Speech and movement: Clear speech present Affect: normal affect Attitude: cooperative Results Reviewed Results Reviewed: 08/04/2024,MR/MR cervical spine wo con IMPRESSION: 1. Since the prior MRI, there has been anterior fusion and discectomy of C5-C7 with disc prostheses and oblique interbody endplate anchors. Hardware creates localized susceptibility artifact. The central canal has been decompressed at C5-6 and C6-7. 2. There is mild to moderate central canal stenosis at C4-5, above the fusion construct, where there is edematous endplate changes, a disc osteophytic ridge complex which indents minimally upon the ventral cord without cord impingement. Worsening degenerative disc, uncinate, and facet changes contribute to severe bilateral right greater than left neural foraminal stenosis. 3. At C5-6, there is moderate right neural foraminal stenosis. At C6-7, there is severe bilateral neural foraminal stenosis. At C7-T1, there is mild left and moderate to severe right neural foraminal stenosis. At T1-T2, there is moderate to severe right greater than left neural foraminal stenosis. 4. There is no evidence of cord impingement or signal abnormality. 5. Edematous endplate changes at C4-5. 6. See above for further detail and ancillary findings. Assessment & Plan Assessment & Plan (1) Chronic migraine without aura: Code(s): G43.709 - Chronic migraine without aura, not intractable, without status migrainosus Category: Medical (2) DAYNA (obstructive sleep apnea): Comment: On CPAP. Code(s): G47.33 - Obstructive sleep apnea (adult) (pediatric) Category: Medical (3) Cervicalgia of hlecxswx-uvlgfrq-vbmqr region: Code(s): M54.2 - Cervicalgia Category: Medical (4) Bilateral occipital neuralgia: Code(s): M54.81 - Occipital neuralgia Category: Medical Plan Continue APAP 4-10 cmH2O w/ EPR 3 and ramp time 30 minutes. Flonase q.h.s. Trial adding Azelastine 137 mcg intranasal nasal spray 1-2 sprays into each nostril following Flonase-in hopes this improves nasal congestion and improves PAP tolerance. Continue to clean and change PAP supplies routinely. Continue to use distilled water. For cervicialgia and occipital neuralgia s/s: Reviewed C-spine MRI report. Follow-up with pain management as scheduled. For acute chronic migraine w/o aura tx: Continue Sumatriptan 100mg tab, 1/2 - 1 tab (50-100mg) at onset of headache, may repeat in 2 hours. Max of 2 tabs (200mg) per 24 hours. May adjunct with OTC Tylenol 650-1000mg q 4-6 hours prn. For chronic migraine w/o aura prevention tx: Discontinue Ajovy 225mg/1.5ml autoinjector order due to patient developed allergic reaction. Riboflavin 400 mg daily in a.m. Magnesium 400 mg daily at bedtime Start Atogepant (Qulipta) 60mg daily at bedtime. Potential side effects include but are not limited to drowsiness, nausea, constipation, weight loss. Previous migraine prevention tx trials: Amitriptyline 50mg- ineffective and not tolerated. Ajovy-unclear effectiveness, developed allergic reaction. Migraine tx contraindications: Beta-blockers d/t asthma dx. Will follow-up upon review of above and patient to follow-up in clinic in 6 months or sooner prn. Medications: New 2 azelastine administer into each nostril 137 mcg (0.137 mL) intranasal BID 30 days 8.22 mL 3RF atogepant (Qulipta) 60 mg (2 x 30 mg) PO DAILY 30 days 60 tabs 6RF G43.709 - Chronic migraine without aura, not intractable, without status migrainosus Refilled 2 riboflavin (vitamin B2) 400 mg PO DAILY 90 days 90 tabs 1RF sumatriptan succinate (0.5 - 1 x 100 mg) 50 - 100 mg orally at onset of headache, may repeat in 2 hrs PRN; max 2 tabs per day or 4 tabs/week (may take with Tylenol) 30 days 12 tabs 6RF migraine headache Coding Level of Care Code Est Pt Level 4 (86590) Complex EM visit Add On G2211 Diagnoses Chronic migraine without aura G43.709 DAYNA (obstructive sleep apnea) G47.33 Cervicalgia of yxygwgym-hhsxhpr-gqrbc region M54.2 Bilateral occipital neuralgia M54.81
--- OUTSIDE RECORDS SUMMARY | 2025-01-16 09:12 | XMS_ITS | Clinical Summary ---
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 Psoriatic [...] Already f w psychiatrist and therapist at [facility] ---advised to continue care and may need eval if meds can be adjusted Immunizations Immunization Administration Dates Next Due Hepatitis A Vaccine, Adult Dosage 08/14/2019 Hepatitis B adult (ENGERIX-B ADULT) vaccine 1 mL IM 08/14/2019 Influenza, Injectable, Quadr ivalent, Contains Preservative 09/06/2018,12/11/2017 Influenza, Injectable, Quadr ivalent, Preservative Free 07/31/2023,07/02/2021,08/26/2020,2018 Pneumococcal Conjugate Vacci ne, 13 Valent 06/07/2019 Pneumococcal conjugate PCV20,polysaccharide [id number] conjugate, adjuvant, PF (Prevnar 20) 02/01/2024 RSV, [...] 06/24/2024, , 07/02/2021, Additional history exists Insurance [employer] Care Teams Mower Mechanic Relationship Specialty Start Date End Date Koki Vu [address] [place] [phone] PCP - General 12/26/23
--- OUTSIDE RECORDS SUMMARY | 2025-01-16 09:12 | XMS_ITS | Referral Summary ---
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 Psoriatic arthritis [...] Already f w psychiatrist and therapist at [facility] ---advised to continue care and may need eval if meds can be adjusted Immunizations Immunization Administration Dates Next Due Hepatitis A Vaccine, Adult Dosage 08/14/2019 Hepatitis B adult (ENGERIX-B ADULT) vaccine 1 mL IM 08/14/2019 Influenza, Injectable, Quadr ivalent, Contains Preservative 09/06/2018,12/11/2017 Influenza, Injectable, Quadr ivalent, Preservative Free 07/31/2023,07/02/2021,08/26/2020,2018 Pneumococcal Conjugate Vacci ne, 13 Valent 06/07/2019 Pneumococcal conjugate PCV20,polysaccharide [id number] conjugate, adjuvant, PF (Prevnar 20) 02/01/2024 RSV, [...] [id number] Care Teams Ambulatory Care Relationship Specialty Start Date End Date Koki Vu [address] [place] [phone] PCP - General 12/26/23
--- OUTSIDE RECORDS SUMMARY | 2025-01-16 09:13 | XMS_ITS | Encounter Summary ---
Author Organization [employer] Address [address] [place] [address] Care Team Providers Care Grinding Wheel Facer Name Role Phone Koki Vu MD Primary Care Provider [phone] Encounter Details Date Type Department Care Team [...] documented as of this encounter Care Teams Grinding Wheel Facer Relationship Specialty Start Date End Date Koki Vu MD [address] [place] [phone] PCP - General Family Medicine 10/23/20 Addie CollectorRaveler 06/17/24 documented as of this encounter
--- OUTSIDE RECORDS SUMMARY | 2025-01-16 09:13 | XMS_ITS | Clinical Summary ---
Author Organization [facility] Address [address] [place] [address] Care Team Providers Care Regenerator Operator Name Role Phone Unavailable Primary Care [...] to complete this topic , [address] [place] [address]
--- OUTSIDE RECORDS SUMMARY | 2025-01-16 09:13 | XMS_ITS | Clinical Summary ---
Author Organization [facility] ity Address [address] [place] [address] Care Team Providers Care Long Wall Shear Operator Name Role Phone Jessica Rogers MD Primary Care Provider [phone] Social History Tobacco Use Types Packs/Day Years [...] age to complete this topic Care Teams Long Wall Shear Operator Relationship Specialty Start Date End Date Jessica Rogers MD [address] [place] [address] [phone] PCP - General General Surgery 09/22/21
--- OUTSIDE RECORDS SUMMARY | 2025-01-16 09:13 | XMS_ITS | Encounter Summary ---
Author Organization [employer] Address [address] [facility] [address] [place] [address] Care Team Providers Care Councilor Name Role Phone Koki Vu MD Primary Care Provider [phone] Encounter Details Date Type Department Care Team (Late st Contact Info) Description 08/23/2023 Abstract [facility] MEDICINE [address] [place] [address] Koki Vu MD [address] [place] [address] Social History Tobacco Use Types Packs/Day Years [...] documented as of this encounter Care Teams Councilor Relationship Specialty Start Date End Date Koki Vu MD [address] [place] [address] PCP - General Family Medicine 10/23/20 Addie Shot Grinder OperatorAutomotive Quality Manager 06/17/24 documented as of this encounter
--- OUTSIDE RECORDS SUMMARY | 2025-01-16 09:13 | XMS_ITS | Clinical Summary ---
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 Assessment & [...] Already f w psychiatrist and therapist at [facility] ---advised to continue care and may need eval if meds can be adjusted Chronic low back pain 12/11/2017 Assessment & Plan (06/13/2023 1:43 PM EDT): Not responsive to opiate medications. At this point will send a trial of Lyrica. Will need to proceed with PA for this. Encounters Date Type Department Care Team Description 01/14/2025 8:30 AM EDT Office Visit [facility] [address], [place] [phone] Josee Collazo MD Acquired hypothyroidism (Primary Dx); Prediabetes 01/14/2025 Travel 01/06/2025 Patient Outreach [facility] [address] [place], [place] [phone] Koki Vu MD Pre-visit Planning (SDOH screening positive and Tobacco screening negative) 01/01/2025 Telephone [facility] [address] [place] [address] Koki Vu MD Referral 12/20/2024 Population Health Risk Score Community [facility] (C3) Department [address] [place] [phone] Provider, Population Health Generic 12/01/2024 Refill [facility] [address] [place] [address] Koki Vu MD 11/29/2024 Orders Only GENERIC EXTERNAL DATA DEPARTMENT Provider, Generic External Data 11/28/2024 9:40 AM EST Office Visit [facility] [address] [place] [address] Starr Escobar MD Atopic dermatitis in adult (Primary Dx); Chronic migraine without aura without status migrainosus, not intractable 11/22/2024 8:30 AM EST Office Visit [facility] [address] [place] [address] Tirso Mayfield MD Psoriatic arthritis ([facility]) (Primary Dx) 11/22/2024 Travel 11/20/2024 Telephone [facility] [address] [place] [address] Koki Vu MD Nurse Triage 10/21/2024 Orders Only [facility] External Provider, [facility] from Last 3 Months Immunizations Name Administration [...] Risk 2-dose series) 02/12/2020 08/14/2019 Depression Monitoring 01/02/2024 07/04/2023, 023 COVID-19 Vaccine ( season) 2024 04/27/2022, 09/23/2021, 01/18/2021, Additional history exists Depression Screening 07/04/2024 07/04/2023, 07/04/20 23 Tobacco Screening 07/26/2025 07/26/2024 SDOH Screening 01/06/2026 01/06/2025 Diabetes: Hemoglobin A1C 01/14/2026 025, 05/15/2023, 04/15/2022 FIT DNA/Cologuard 08/10/2026 08/10/2023 Colonoscopy 04/17/2028 04/17/2018 Colorectal Cancer Screening 04/17/2028 DTaP/Tdap/Td Vaccines (2 - Td or Tdap) 07/10/2029 07/10/2019 Lipid Panel 01/14/2030 01/14/2025, 07/0 05/2022, 04/20/2021 Zoster Vaccines Completed 06/27/2022, 04/25/2022 Pneumococcal Vaccine: [...] Procedure Name Priority Date/Time Associated Diagnosis Comments HEMOGLOBIN A1C Routine 01/14/2025 9:27 AM EDT Prediabetes TSH W/REFLEX TO FT4 Routine 01/14/2025 9 :22 AM EDT Acquired hypothyroidism HEPATIC FUNCTION PANEL Routine 01/14/2025 9:22 AM EDT Prediabetes LIPID PANEL, STANDARD Routine 01/14/2025 9:22 AM EDT Prediabetes BASIC METABOLIC PANEL Routine 01/14/2025 9:22 AM EDT Prediabetes RAST ALLERGEN (NON ORDERABLE) Routine 11/29/2024 11:57 AM EST MR LUMBAR SPINE WO CONTRAST Routine 10/21/2024 9:55 AM EST HEPATITIS PANEL, GENERAL Routine 08/13/2024 11:49 AM EST LAB COLOGUARD?? COLON CANCER SCREEN Routine 08/10/2023 3:59 PM EDT Colon cancer screening HM COLONOSCOPY Routine 04/17/2018 6:07 AM EDT from Last 3 Months or Most Recently Relevant to Health Maintenance Results * Hemoglobin A1c (01/14/2025 9:27 AM EDT) Hemoglobin A1c 6.0 <6.0 % [facility] Comment:Hemoglobin A1C Refer ence Range Adults: 4.8 - 6.0 % Non diabetic: < 6.0 % Goal: < 7.0 %Additional Action Suggested: > 8.0 %Note: Hemoglobin A1c results are invalid for patients with abnormal amounts of HbF. Blood transfusions may impact the HbA1c concentration in the patient sample. Estimated Average Glucose 126 mg/dL [facility] Comment:eAG = Estimated ave rage glucose which is %A1C expressed asaverage glucose, using the formula of the [id number] Glucose study (ADAG), Diabetes Care, Vol.31,#8,May. 2007 Blood Venous blood specimen / Unknown 01/14/2025 9:27 AM EDT 01/14/2025 2:06 PM EDT Josee Collazo MD LAB BLOOD ORDERABLES Final Resul t Performing Organization Address [facility] de Phone Number [facility] [address] [place] [phone] * TSH with Reflex to Free T4 (01/14/2025 9:22 AM EDT) TSH reflex Free T4 0.88 0.32 - 4.0 uIU/mL [facility] Blood Venous blood specimen / Unknown 01/14/2025 9:22 AM EDT 01/14/2025 2:06 PM EDT Josee Collazo MD LAB BLOOD ORDERABLES Final Resul t Performing Organization Address [facility] de Phone Number [facility] [address] [place] [phone] * Hepatic Function Panel (01/14/2025 9:22 AM EDT) Bilirubin, Total 0.3 0.0 - 1.0 mg/dL [facility] Bilirubin, Direct 0.1 0.0 - 0.5 mg/dL [facility] Aspartate Amino Transferase 35 5 - 37 U/L [facility] Alanine Aminotransferase 35 0 - 40 U/L [facility] Total Protein 6.8 6.5 - 8.0 g/dL [facility] Albumin Level 4.1 3.5 - 5.0 g/dL [facility] Alkaline Phosphatase 85 39 - 117 U/L [facility] Blood Venous blood specimen / Unknown 01/14/2025 9:22 AM EDT 01/14/2025 2:06 PM EDT Josee Collazo MD LAB BLOOD ORDERABLES Final Resul t Performing Organization Address City/[facility] Co de Phone Number [facility] [address] [place] [address] [phone] * (ABNORMAL) Lipid Panel, Standard (01/14/2025 9:22 AM EDT) Triglycerides 86 <150 mg/dL [facility] Comment:Desirable Triglyceri de: less than 150 mg/dLBorderline High Triglyceride 150-199 mg/dLHigh Triglyceride: 200-499 mg/dLVery High Triglyceride: greater than or equal to 5OO mg/dL Cholesterol 193 <200 mg/dL [facility] Comment:Desirable Cholestero l: less than 200 mg/dLBorderline High Cholesterol: 200-239 mg/dLHigh Cholesterol: greater than 239 mg/dL LDL Cholesterol Calculated 134(H) <100 mg/dL [facility] Comment:Desirable LDL: less than 100 mg/dLNear Optimal/Above Optimal LDL: 110- 129 mg/dLBorderline High LDL: 130-159 mg/dLHigh LDL: 160-189 mg/dLVery High LDL: greater than or equal to 190 mg/dL HDL Cholesterol 42 >40 mg/dL [facility] Comment:Desirable HDL: great er than 40 mg/dL Note: This HDL assay may give artificially low results in patients with liver disease. Blood Venous blood specimen / Unknown 01/14/2025 9:22 AM EDT 01/14/2025 2:06 PM EDT Josee Collazo MD LAB BLOOD ORDERABLES Final Resul t [facility] [address] [place] [phone] * (ABNORMAL) Basic Metabolic Panel (01/14/2025 9:22 AM EDT) Sodium 142 135 - 145 mmol/L [facility] Potassium 4.1 3.3 - 5.1 mmol/L [facility] Chloride 110(H) 96 - 108 mmol/L [facility] Carbon Dioxide 26 22 - 29 mmol/L [facility] Anion Gap 10(L) 12 - 20 [facility] Urea Nitrogen (BUN) 15 9 - 16 mg/dL [facility] Creatinine, Serum 1.04 0.5 - 1.4 mg/dL [facility] Estimated Glomerular Filt Rate >60 [facility] Comment:Chronic Kidney Disea se: Estimated GFR < 60 mL/min/1.96r9Hqrejh Kidney Disease: Estimated GFR < 15 mL/min/1.73m2 Glucose 90 60 - 115 mg/dL [facility] Calcium 9.1 8.4 - 10.2 mg/dL [facility] Blood Venous blood specimen / Unknown 01/14/2025 9:22 AM EDT 01/14/2025 2:06 PM EDT us Josee Collazo MD LAB BLOOD ORDERABLES Final Resul t Performing Organization Address [facility] Co de Phone Number [facility] [address] [place] [address] [phone] * Rast Allergen (11/29/2024 11:57 AM EST) Rast Allergen SEE NOTE [facility] Comment:SEE SCANNED RESULTS IN EMR 11/29/2024 11:5 7 AM EST 11/29/2024 11:57 AM EST us Generic External Data Provider HISTORICAL/NON OR DERABLE LABS Final Result Performing Organization Address [facility] Co de Phone Number [facility] [address] [place] [phone] * MR Lumbar Spine w/o Contrast (10/21/2024 9:55 AM EST) Anatomical Region Laterality Modality Spine, L-spine Magnetic Resonan ce 10/21/2024 9:55 AM EST Narrative 10/22/2024 3:45 PM EST ? [facility] ?[address] ?[place] [address] ? Magnetic Resonance Report ? Signed ? Patient: Lynnette Elkins,Kvng E ?MR#: [id number] ?? [id number] ? : 1965 ?Acct:[id number] ? Age/Sex: 59 / M ?ADM Date: 10/21/24 ? Loc: HO.MRI ? Attending Dr: Winston Boykin MD ? Ordering Physician: Winston Boykin MD ?? Date of Service: 10/21/24 ?? Procedure(s): MR lumbar spine wo con ?? Accession Number(s): [id number] ? cc: Winston Boykin MD; Koki Vu [...] DD/ 0955 ? TD/TT: 10/21/24 1020 ? Acid Leveler: ? Procedure Note David Cheng - 10/22/[address] [address] Magnetic Resonance Report Signed Patient: Kvng Ramon EMR#: [id number] : 1965Acct:[id number] Age/Sex: 59 / MADM Date: 10/21/24 Loc: HO.MRI Attending Dr: Winston Boykin MD Ordering Physician: Winston Boykin MD Date of Service: 10/21/24 Procedure(s): MR lumbar spine wo con Accession Number(s): [id number] cc: Winston Boykin MD; Koki Vu MD [...] by: Jakob Sibley MD 10/22/2024 03:42 PM [facility] Dictated By: Jakob Lee MD Signed By: <Electronically signed by Jakob Mcfadden MDin OV> 10/22/24 1542 DD/ 0955 TD/TT: 10/21/24 1020 Acid Leveler: [facility] External Provider IMG MRI PROCEDURES Final Result * Hepatitis Panel, General (08/13/2024 11:49 AM EST) Hepatitis A IgM Nonreactive Nonreactive [facility] Comment:IgM antibodies to TORREZ V not detected; does not exclude earlyacute or recovered HAV infection. ~Hepatitis B Surface Antibody NONREACTIVE Nonreactive [facility] Comment:Nonreactive: < 8.00 mIU/mL Hepatitis B Core Antibody Nonreactive Nonreactive [facility] Hepatitis C Antibody Nonreactive Nonreactive [facility] Comment:Antibodies to HCV no t detected; does not exclude early acuteHCV infection. Hepatitis B Surface Ag Negative Negative [facility] 08/13/2024 11:4 9 AM EST 08/13/2024 11:49 AM EST Generic External Data Provider LAB BLOOD ORDERAB LES Final Result Performing Organization Address City/State/[facility] Co de Phone Number [facility] [address] [place] [phone] * Cologuard?? colon cancer screening (08/10/2023 3:59 PM EDT) Cologuard Result Negative Negative 08/17/20 9:57 AM EST [facility] (CLIA #:[id number]) Comment: NEGATIVE TEST RESULT. A negative Cologuard [...] cancer. ??Following a negative Cologuard result, the [place] Cancer Society and U.S. Multi-Society Task Force screening guidelines recommend a Cologuard re-screening interval of 3 years. References: [place] [employer] Society Guideline for Colorectal Cancer Screening: https://www.cancer.org/cancer/ssoee-iaohad-onxadi/yiblmcdlj-qyytsvngi-ksduyqp/ac s-rec ommendations.html.; Delroy MULLIGAN, Rere OTERO, Guy RochaK, Colorectal Cancer Screening: Recommendations for Physicians and Patients from the U.S. Multi-Society Task Force on Colorectal Cancer Screening , Am J Gastroenterology 2017; 112:7234-0876. TEST DESCRIPTION: Composite algorithmic analysis of stool [...] screened with both Cologuard and colonoscopy. (Harris Lara, N Engl J Med 2014;370(14):0036-3157.) Cologuard may produce a false negative or false positive result (no colorectal cancer or precancerous polyp present at colonoscopy follow up). A negative Cologuard test result does not guarantee the absence of CRC or advanced adenoma (pre-cancer). The current Cologuard screening interval is every 3 years. ([place] Cancer Society and U.S. Multi-Society Task Force). Cologuard performance data in a 10,000 patient pivotal study using colonoscopy as the reference method can be accessed at the following location: www.Offerboxx/results. Additional description of the Cologuard test process, warnings and precautions can be found at www.BionaturisogDextrysrd.com. Stool specimen (specimen) 08/10/2023 3:59 PM EDT 08/11/2023 6:19 PM EDT Koki Vu MD LAB MOLECULAR DIAGNOSTICS ORD ERABLES Final Result [facility] (CLIA #:[id number]) [place] [address], * Colonoscopy (04/17/2018 6:07 AM EDT) Historical Provider HEALTH MAINTENANCE Final Result from Last 3 Months or Most Recently Relevant to Health Maintenance Insurance [address] [place] [address] C3 Care Teams Grain Operator Relationship Specialty Start Date End Date Koki Vu MD [address] [place] [phone] PCP - General Family Medicine 10/23/20 Addie Academic InterventionistStrapper And Buffer 06/17/24
--- OUTSIDE RECORDS SUMMARY | 2025-01-16 09:13 | XMS_ITS | Encounter Summary ---
Author Organization [employer] Address 75 [facility] 7t [place] [address] Care Team Providers Care Senior Director Finance Name Role Phone Koki Vu MD Primary Care Provider [phone] Reason for Visit * Reason Comments Med Refill Encounter Details Date Type Department Care Team ([facility] st Contact Info) Description 10/25/[address] [facility] MED & PEDS [address] [place], [place] [phone] Koki Vu MD [address] [place] [address] Social History Tobacco Use Types Packs/Day Years [...] as of this encounter Care Teams Senior Director Finance Relationship Specialty Start Date End Date Koki Vu MD [address] [place] [phone] PCP - General Family Medicine 10/23/20 Addie Sales Floor Team LeaderCoffee Urn Attendant 06/17/24 documented as of this encounter
--- OUTSIDE RECORDS SUMMARY | 2025-01-16 09:13 | XMS_ITS | Encounter Summary ---
Author Organization [employer] Address [address] [facility] [address] 7t [place] [address] Care Team Providers Care Septic Technician Name Role Phone Koki Vu MD Primary Care Provider [phone] Encounter Details Date Type Department Care Team ([facility] st Contact Info) Description 09/27/2024 Telephone [facility] MED & PEDS [address] [place], [place] [phone] Koki Vu MD [address] [place] [address] Social History Tobacco Use Types Packs/Day Years [...] EST TC from [place] DO with [facility] pulmonology requesting a call back from pcp to discuss further medical options. Best contact # [phone]. documented in this encounter Plan of Treatment Not on file documented as of this encounter Visit Diagnoses Not on filedocumented in this encounter Additional Health Concerns Assessment Noted Time PHQ-9 Depression Total Score: 17 023 11:11 AM EDT documented as of this encounter Care Teams Septic Technician Relationship Specialty Start Date End Date Koki Vu MD [address] [place] [phone] PCP - General Family Medicine 10/23/20 Addie Swatch PasterUtility Worker Roller Shop 06/17/24 documented as of this encounter
--- OUTSIDE RECORDS SUMMARY | 2025-01-16 09:13 | XMS_ITS | Encounter Summary ---
Author Organization [employer] Address 75 [facility] 7t [place] [address] Care Team Providers Care Transit Driver Name Role Phone Koki Vu MD Primary Care Provider [phone] Reason for Visit * Reason Onset Date Comments Durable Medical Equipment 02/07/2024 Encounter Details Date Type Department Care Team ([facility] st Contact Info) Description 02/07/2024 Telephone [facility] MED & PEDS [address] [place] [address] Koki Vu MD [address] [place] [address] Durable Medical Equipment Social History Tobacco Use [...] as of this encounter Care Teams Transit Driver Relationship Specialty Start Date End Date Koki Vu MD [address] [place] [address] PCP - General Family Medicine 10/23/20 Addie Material RequisitionerConstruction Grip 06/17/24 documented as of this encounter
--- OUTSIDE RECORDS SUMMARY | 2025-01-16 09:13 | XMS_ITS | Encounter Summary ---
Author Organization [employer] Address 75 [facility] 7t [place] [address] Care Team Providers Care Cutting Table Operator Name Role Phone Koki Vu MD Primary Care Provider [phone] Reason for Visit * Reason Comments Med Refill Encounter Details Date Type Department Care Team ([facility] st Contact Info) Description 03/28/2024 Refill [facility] MED & PEDS [address] [place], [place] [phone] Koki Vu MD [address] [place] [address] Social History Tobacco Use Types Packs/Day Years [...] documented as of this encounter Care Teams Cutting Table Operator Relationship Specialty Start Date End Date Koki Vu MD [address] [place] [phone] PCP - General Family Medicine 10/23/20 Addie Die Equipment OperatorSupervisor Solder Making 06/17/24 documented as of this encounter
--- OUTSIDE RECORDS SUMMARY | 2025-01-16 09:13 | XMS_ITS | Encounter Summary ---
Author Organization [employer] Address 75 [facility] 7t [place] [address] Care Team Providers Care Sheet Metal Former Name Role Phone Koki Vu MD Primary Care Provider [phone] Reason for Visit * Reason Comments Med Refill Encounter Details Date Type Department Care Team ([facility] st Contact Info) Description 10/25/2023 Refill [facility] MED & PEDS [address] [place], [place] [phone] Koki Vu MD [address] [place] [address] Social History Tobacco Use Types Packs/Day Years [...] documented as of this encounter Care Teams Sheet Metal Former Relationship Specialty Start Date End Date Koki Vu MD [address] [place] [phone] PCP - General Family Medicine 10/23/20 Addie Licensed Prosthetist/OrthotistHand Pleater 06/17/24 documented as of this encounter
--- OUTSIDE RECORDS SUMMARY | 2025-01-16 09:13 | XMS_ITS | Encounter Summary ---
Author Organization [employer] Address [address] [facility] 7t [place] [address] Care Team Providers Care Community Service Officer Coordinator Name Role Phone Koki Vu MD Primary Care Provider [phone] Reason for Referral * Consultation (Routine) - Pending Review Specialty Diagnoses / Procedures Referred By Contmike t Referred To Contact Endocrinology Diagnoses Acquired hypothyroidism Prediabetes Josee Collazo MD [address] [place] [address] Phone: tel: fax: Referral ID Status Reason Start Date Expiration Date Visits Requested Visits Authorized [id number] Pending Review Specialty Services Required 01/14/2025 01/14/2026 1 1 Encounter Details Date Type Department Care Team (Latest Contact Info) Description 01/14/2025 8:30 AM EDT Office Visit [facility] MED & PEDS [address] [place] [address] Josee Collazo MD [address] [place] [address] Acquired hypothyroidism (Primary Dx); Prediabetes Social History [...] Type Priority Associated Diagnoses Orde r Schedule Albumin, Random Urine W/Creatinine Lab Routine Prediabetes Expected: 01/14/2025 (Approximate), Expires: 01/14/2026 Scheduled Referrals Name Type Priority Associated Diagnoses Order Schedule Referral to Endocrinology Outpatient Referral Routine Acquired hypothyroidism Prediabetes Expected: 01/14/2025 (Approximate), Expires: 01/14/2026 documented as of this encounter Procedures Procedure Name Priority Date/Time Associated Diagnosis Comments HEMOGLOBIN A1C Routine 01/14/2025 9:27 AM EDT Prediabetes TSH W/REFLEX TO FT4 Routine 01/14/2025 9 :22 AM EDT Acquired hypothyroidism HEPATIC FUNCTION PANEL Routine 01/14/2025 9:22 AM EDT Prediabetes LIPID PANEL, STANDARD Routine 01/14/2025 9:22 AM EDT Prediabetes BASIC METABOLIC PANEL Routine 01/14/2025 9:22 AM EDT Prediabetes documented in this encounter Results * Hemoglobin A1c (01/14/2025 9:27 AM EDT) Hemoglobin A1c 6.0 <6.0 % [facility] Comment:Hemoglobin A1C Refer ence Range Adults: 4.8 - 6.0 % Non diabetic: < 6.0 % Goal: < 7.0 %Additional Action Suggested: > 8.0 %Note: Hemoglobin A1c results are invalid for patients with abnormal amounts of HbF. Blood transfusions may impact the HbA1c concentration in the patient sample. Estimated Average Glucose 126 mg/dL [facility] Comment:eAG = Estimated ave rage glucose which is %A1C expressed asaverage glucose, using the formula of the A2V-TucxheuBpuailh Glucose study (ADAG), Diabetes Care, Vol.31,#8,Aug. 2007 Blood Venous blood specimen / Unknown 01/14/2025 9:27 AM EDT 01/14/2025 2:06 PM EDT us Josee Collazo MD LAB BLOOD ORDERABLES Final Resul t [facility] [address] [place] [address] [phone] * TSH with Reflex to Free T4 (01/14/2025 9:22 AM EDT) TSH reflex Free T4 0.88 0.32 - 4.0 uIU/mL [facility] Blood Venous blood specimen / Unknown 01/14/2025 9:22 AM EDT 01/14/2025 2:06 PM EDT Josee Collazo MD LAB BLOOD ORDERABLES Final Resul t Performing Organization Address [facility] Co de Phone Number [facility] [address] [place] [phone] * Hepatic Function Panel (01/14/2025 9:22 AM EDT) Bilirubin, Total 0.3 0.0 - 1.0 mg/dL [facility] Bilirubin, Direct 0.1 0.0 - 0.5 mg/dL [facility] Aspartate Amino Transferase 35 5 - 37 U/L [facility] Alanine Aminotransferase 35 0 - 40 U/L [facility] Total Protein 6.8 6.5 - 8.0 g/dL [facility] Albumin Level 4.1 3.5 - 5.0 g/dL [facility] Alkaline Phosphatase 85 39 - 117 U/L [facility] Blood Venous blood specimen / Unknown 01/14/2025 9:22 AM EDT 01/14/2025 2:06 PM EDT Josee Collazo MD LAB BLOOD ORDERABLES Final Resul t Performing Organization Address [facility] Co mo Phone Number [facility] [address] [place] [phone] * (ABNORMAL) Lipid Panel, Standard (01/14/2025 9:22 AM EDT) Triglycerides 86 <150 mg/dL [facility] Comment:Desirable Triglyceri de: less than 150 mg/dLBorderline High Triglyceride 150-199 mg/dLHigh Triglyceride: 200-499 mg/dLVery High Triglyceride: greater than or equal to 5OO mg/dL Cholesterol 193 <200 mg/dL [facility] Comment:Desirable Cholestero l: less than 200 mg/dLBorderline High Cholesterol: 200-239 mg/dLHigh Cholesterol: greater than 239 mg/dL LDL Cholesterol Calculated 134(H) <100 mg/dL [facility] Comment:Desirable LDL: less than 100 mg/dLNear Optimal/Above Optimal LDL: 110- 129 mg/dLBorderline High LDL: 130-159 mg/dLHigh LDL: 160-189 mg/dLVery High LDL: greater than or equal to 190 mg/dL HDL Cholesterol 42 >40 mg/dL [facility] Comment:Desirable HDL: great er than 40 mg/dL Note: This HDL assay may give artificially low results in patients with liver disease. Blood Venous blood specimen / Unknown 01/14/2025 9:22 AM EDT 01/14/2025 2:06 PM EDT us Josee Collazo MD LAB BLOOD ORDERABLES Final Resul t [facility] [address] [place] [phone] * (ABNORMAL) Basic Metabolic Panel (01/14/2025 9:22 AM EDT) Sodium 142 135 - 145 mmol/L [facility] Potassium 4.1 3.3 - 5.1 mmol/L [facility] Chloride 110(H) 96 - 108 mmol/L [facility] Carbon Dioxide 26 22 - 29 mmol/L [facility] Anion Gap 10(L) 12 - 20 [facility] Urea Nitrogen (BUN) 15 9 - 16 mg/dL [facility] Creatinine, Serum 1.04 0.5 - 1.4 mg/dL [facility] Estimated Glomerular Filt Rate >60 [facility] Comment:Chronic Kidney Disea se: Estimated GFR < 60 mL/min/1.34a8Otliih Kidney Disease: Estimated GFR < 15 mL/min/1.73m2 Glucose 90 60 - 115 mg/dL [facility] Calcium 9.1 8.4 - 10.2 mg/dL [facility] Blood Venous blood specimen / Unknown 01/14/2025 9:22 AM EDT 01/14/2025 2:06 PM EDT us Josee Collazo MD LAB BLOOD ORDERABLES Final Resul t [facility] [address] [place] [phone] documented in this encounter Visit Diagnoses Diagnosis Acquired hypothyroidism- Primary Unspecified hypothyroidism Prediabetes Other abnormal glucose documented in this encounter Additional Health Concerns Assessment Noted Time PHQ-9 Depression Total Score: 17 023 11:11 AM EDT documented as of this encounter Care Teams Community Service Officer Coordinator Relationship Specialty Start Date End Date Koki Vu MD [address] [place] [address] PCP - General Family Medicine 10/23/20 Addie Stationary Boiler FiremanBack Shoe Operator 06/17/24 documented as of this encounter
--- OUTSIDE RECORDS SUMMARY | 2025-01-16 09:13 | XMS_ITS | Encounter Summary ---
Author Organization [employer] Address [address] [facility] [address], [place] [address] Care Team Providers Care Horticulture Instructor Name Role Phone Koki Vu MD Primary Care Provider [phone] Reason for Referral * Consultation (Routine) - Closed Specialty Diagnoses / Procedures Referred By Contac t Referred To Contact Rheumatology Diagnoses Erosion of bone Tirso Mayfield MD [address] [place] [address] Phone: tel: fax: [facility] [address] Phone: tel: fax: Referral ID Status Reason Start Date Expiration Date V isits Requested Visits Authorized [id number] Closed Specialty Services Required 08/02/2024 08/02/2025 1 1 Encounter Details Date Type Department Care Team (Late st Contact Info) Description 08/02/2024 Orders Only [facility] CHC MED & PEDS [address] [place] [address] Tirso Mayfield MD [address] [place] [address] Erosion of bone (Primary Dx) Social History [...] AM EDT) Rheumatoid Factor <13.0 <15.0 IU/mL [facility] Blood Venous blood specimen / Unknown 08/08/2024 10:40 AM EDT 08/08/2024 1:17 PM EDT Tirso Jara MD LAB BLOOD ORDERABL ES Final Result Performing Organization Address [facility] de Phone Number [facility] [address] [place] [phone] * Cyclic Citrullinated Peptide (CCP) Antibody (IgG) (08/08/2024 10:40 AM EDT) Cyclic Citrullinated Peptide <16 UNITS [facility] Comment:Reference RangeNegat shalom: <20Weak Positive: 20-39Moderate Positive: 40-59Strong Positive: >59THIS TEST WAS PERFORMED AT:[employer] [place] [id number] RECINOS MD Blood Venous blood specimen / Unknown 08/08/2024 10:40 AM EDT 08/08/2024 1:17 PM EDT Tirso Jara MD LAB BLOOD ORDERABL ES Final Result Performing Organization Address [facility] de Phone Number [facility] [address] [place] [phone] documented in this encounter Visit Diagnoses Diagnosis Erosion of bone- Primary documented in this encounter Additional Health Concerns Assessment Noted Time PHQ-9 Depression Total Score: 17 023 11:11 AM EDT documented as of this encounter Care Teams Horticulture Instructor Relationship Specialty Start Date End Date Koki Vu MD [address] [place] [address] PCP - General Family Medicine 10/23/20 Addie Machine Featheredger And ReducerSenior Net Software Developer 06/17/24 documented as of this encounter
--- OUTSIDE RECORDS SUMMARY | 2025-01-16 09:13 | XMS_ITS | Encounter Summary ---
Author Organization [employer] Address [address] [facility] [address] 7t [place] [address] Care Team Providers Care Manager Support Name Role Phone Koki Vu MD Primary Care Provider [phone] Encounter Details Date Type Department Care Team (Late st Contact Info) Description 02/05/2024 Orders Only [facility] MEDICINE [address] [place] [address] Provider, MD Nsaima Social History Tobacco Use Types Packs/Day Years [...] documented as of this encounter Care Teams Manager Support Relationship Specialty Start Date End Date Koki Vu MD [address] [place] [address] PCP - General Family Medicine 10/23/20 Addie Radio Division CaptainAudio/Video Engineer 06/17/24 documented as of this encounter
== END 2025-01-16 10:03 | disposition home or self-care (01) ==
LOC: HO.HSMS 08:48
PROVIDERS: PCP Family Medicine; Visit Provider Nurse Practitioner Family
DX: G43.709 Chronic migraine without aura, not intractable, without status migrainosus (principal); G47.33 Obstructive sleep apnea (adult) (pediatric); M54.2 Cervicalgia; M54.81 Occipital neuralgia
CPT/HCPCS: 99214

== ENCOUNTER → 2025-01-16 08:48 | Outpatient (BNVA) | payer MEDICAID, SELFPAY | PROVIDERS: PCP Family Medicine; Visit Provider Nurse Practitioner Family | DX: G47.33 Obstructive sleep apnea (adult) (pediatric) (principal); G43.709 Chronic migraine without aura, not intractable, without status migrainosus; M54.2 Cervicalgia; M54.81 Occipital neuralgia | CPT/HCPCS: 99212 ==

== ENCOUNTER 2025-02-04 06:12 | Outpatient (REF) | payer MEDICAID, SELFPAY ==
--- NOTE | ~2025-02-04 | FL_ITS ---
EXAMINATION: FL GUIDANCE ONLY HISTORY: M47.812 - Spondylosis without myelopathy or radiculopathy, cervical region COMPARISON: None available. TECHNIQUE: Fluoroscopy time: 0.1 minutes. Cumulative Dose: 0.826 mGy. DAP: 0.0111 mGym2 Images: 2. FINDINGS: Images demonstrate a lead in the right neck. FL/FL guidance in treatment room IMPRESSION: Fluoroscopy during procedure. Please see procedure report for additional information. Electronically signed by: Kannan Santiago MD 02/05/2025 02:40 PM EDT
--- OUTSIDE RECORDS SUMMARY | 2025-02-04 06:15 | XMS_ITS | Clinical Summary ---
Author Organization [facility] Address [address] [place] [address] Care Team Providers Care Trimmer Buffing Wheel Name Role Phone Jessica Rogers MD Primary Care Provider [phone] Social History Tobacco Use Types Packs/Day Years [...] age to complete this topic Care Teams Trimmer Buffing Wheel Relationship Specialty Start Date End Date Jessica Rogers MD [address] [place] [phone] PCP - General General Surgery 09/22/21
--- OUTSIDE RECORDS SUMMARY | 2025-02-04 06:15 | XMS_ITS | Encounter Summary ---
Author Organization [employer] Address [address] [facility] [address] 7[address] [place] [address] Care Team Providers Care Track Leader Name Role Phone Koki Vu MD Primary Care Provider [phone] Encounter Details Date Type Department Care Team ([facility] st Contact Info) Description 09/27/2024 Telephone [facility] CHC MED & PEDS [address] [place], [place] [phone] Koki Vu MD [address] [place] [address] Social History Tobacco Use Types Packs/Day Years [...] discuss further medical options. Best contact # [phone]. documented in this encounter Plan of Treatment Not on file documented as of this encounter Visit Diagnoses Not on filedocumented in this encounter Additional Health Concerns Assessment Noted Time PHQ-9 Depression Total Score: 17 023 11:11 AM EDT documented as of this encounter Care Teams Track Leader Relationship Specialty Start Date End Date Koki Vu MD [address] [place] [address] PCP - General Family Medicine 10/23/20 Addie Budget AssistantSales Development Executive 06/17/24 documented as of this encounter
--- OUTSIDE RECORDS SUMMARY | 2025-02-04 06:15 | XMS_ITS | Encounter Summary ---
Author Organization [employer] Address [address] [facility] 7t [place] [address] Care Team Providers Care Ui Engineer Name Role Phone Koki Vu MD Primary Care Provider [phone] Reason for Visit * Reason Onset Date Comments Durable Medical Equipment 02/07/2024 Encounter Details Date Type Department Care Team ([facility] st Contact Info) Description 02/07/2024 Telephone [facility] CHC MED & PEDS [address] [place] [address] Koki Vu MD [address] [place] [address] Durable Medical Equipment Social History Tobacco Use [...] documented as of this encounter Care Teams Ui Engineer Relationship Specialty Start Date End Date Koki Vu MD [address] [place] [address] PCP - General Family Medicine 10/23/20 Addie Manager TargetElectric Car Operator 06/17/24 documented as of this encounter
--- OUTSIDE RECORDS SUMMARY | 2025-02-04 06:15 | XMS_ITS | Referral Summary ---
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 Psoriatic arthritis [...] Already f w psychiatrist and therapist at [facility] ---advised to continue care and may need eval if meds can be adjusted Immunizations Immunization Administration Dates Next Due Hepatitis A Vaccine, Adult Dosage 08/14/2019 Hepatitis B adult (ENGERIX-B ADULT) vaccine 1 mL IM 08/14/2019 Influenza, Injectable, Quadr ivalent, Contains Preservative 09/06/2018,12/11/2017 Influenza, Injectable, Quadr ivalent, Preservative Free 07/31/2023,07/02/2021,08/26/2020,2018 Pneumococcal Conjugate Vacci ne, 13 Valent 06/07/2019 Pneumococcal conjugate PCV20,polysaccharide [id number] conjugate, adjuvant, PF (Prevnar 20) 02/01/2024 RSV, [...] [id number] Care Teams Theology Teacher Relationship Specialty Start Date End Date Koki Vu [address] [place] [address] PCP - General 12/26/23
--- OUTSIDE RECORDS SUMMARY | 2025-02-04 06:15 | XMS_ITS | Encounter Summary ---
Author Organization [employer] Address [address] [facility] 7t [place] [address] Care Team Providers Care Crossing Watchman Name Role Phone Koki Vu MD Primary Care Provider [phone] Reason for Visit * Reason Comments Med Refill Encounter Details Date Type Department Care Team ([facility] st Contact Info) Description 10/25/2023 Refill [facility] CHC MED & PEDS [address] [place], [place] [phone] Koki Vu MD [address] [place] [address] Social History Tobacco Use Types Packs/Day Years [...] documented as of this encounter Care Teams Crossing Watchman Relationship Specialty Start Date End Date Koki Vu MD [address] [place] [address] PCP - General Family Medicine 10/23/20 Addie Bisque Tile BurnerPit Shovel Operator 06/17/24 documented as of this encounter
--- OUTSIDE RECORDS SUMMARY | 2025-02-04 06:15 | XMS_ITS | Clinical Summary ---
Author Organization [facility] Address [address] [place] [address] Care Team Providers Care Automobile Assembly Supervisor Name Role Phone Unavailable Primary Care Provider [...] to complete this topic , [address] [place] [address]
--- OUTSIDE RECORDS SUMMARY | 2025-02-04 06:15 | XMS_ITS | Encounter Summary ---
Author Organization [employer] Address [address] [facility] [address] [address] Care Team Providers Care Mud Engineer Name Role Phone Koki Vu MD Primary Care Provider [phone] Reason for Referral * Consultation (Routine) - Closed Specialty Diagnoses / Procedures Referred By Contac t Referred To Contact Rheumatology Diagnoses Erosion of bone Tirso Mayfield MD [address] [place] [address] Phone: tel: fax: [facility] [address] Phone: tel: fax: Referral ID Status Reason Start Date Expiration Date V isits Requested Visits Authorized [id number] Closed Specialty Services Required 08/02/2024 08/02/2025 1 1 Encounter Details Date Type Department Care Team (Late st Contact Info) Description 08/02/2024 Orders Only [facility] CH[facility] MED & PEDS [address] [place] [address] Tirso Mayfield MD [address] [place] [address] Erosion of bone (Primary Dx) Social History [...] AM EDT) Rheumatoid Factor <13.0 <15.0 IU/mL [facility] Blood Venous blood specimen / Unknown 08/08/2024 10:40 AM EDT 08/08/2024 1:17 PM EDT Tirso Jara MD LAB BLOOD ORDERABL ES Final Result Performing Organization Address [facility] de Phone Number [facility] [address] [place] [phone] * Cyclic Citrullinated Peptide (CCP) Antibody (IgG) (08/08/2024 10:40 AM EDT) Cyclic Citrullinated Peptide <16 UNITS [facility] Comment:Reference RangeNegat shalom: <20Weak Positive: 20-39Moderate Positive: 40-59Strong Positive: >59THIS TEST WAS PERFORMED AT:[employer] [place] [id number] RECINOS MD Blood Venous blood specimen / Unknown 08/08/2024 10:40 AM EDT 08/08/2024 1:17 PM EDT Tirso Jara MD LAB BLOOD ORDERABL ES Final Result Performing Organization Address [facility] de Phone Number [facility] [address] [place] [phone] documented in this encounter Visit Diagnoses Diagnosis Erosion of bone- Primary documented in this encounter Additional Health Concerns Assessment Noted Time PHQ-9 Depression Total Score: 17 023 11:11 AM EDT documented as of this encounter Care Teams Mud Engineer Relationship Specialty Start Date End Date Koki Vu MD [address] [place] [address] PCP - General Family Medicine 10/23/20 Addie Mattress RenovatorBleaching Supervisor 06/17/24 documented as of this encounter
--- OUTSIDE RECORDS SUMMARY | 2025-02-04 06:15 | XMS_ITS | Encounter Summary ---
Author Organization [employer] Address [address] [facility] 7t [place] [address] Care Team Providers Care Biomaterials Engineer Name Role Phone Koki Vu MD Primary Care Provider [phone] Reason for Visit * Reason Comments Med Refill Encounter Details Date Type Department Care Team ([facility] st Contact Info) Description 03/28/[address] [facility] CHC MED & PEDS [address] [place], [place] [phone] Koki Vu MD [address] [place] [address] Social History Tobacco Use Types Packs/Day Years [...] documented as of this encounter Care Teams Biomaterials Engineer Relationship Specialty Start Date End Date Koki Vu MD [address] [place] [address] PCP - General Family Medicine 10/23/20 Addie Chiller TenderCan Filler 06/17/24 documented as of this encounter
--- OUTSIDE RECORDS SUMMARY | 2025-02-04 06:15 | XMS_ITS | Encounter Summary ---
Author Organization [employer] Address [address] [facility] [address]t [place] [address] Care Team Providers Care Contracts Officer Name Role Phone Koki Vu MD Primary Care Provider [phone] Reason for Visit * Reason Comments Med Refill Encounter Details Date Type Department Care Team ([facility] st Contact Info) Description 10/25/2023 Refill [facility] CH[facility] MED & PEDS [address] [place], [place] [phone] Koki Vu MD [address] [place] [address] Social History Tobacco Use Types Packs/Day Years [...] documented as of this encounter Care Teams Contracts Officer Relationship Specialty Start Date End Date Koki Vu MD [address] [place] [address] PCP - General Family Medicine 10/23/20 Addie Logistics And Planning ManagerPresser Automatic 06/17/24 documented as of this encounter
--- OUTSIDE RECORDS SUMMARY | 2025-02-04 06:15 | XMS_ITS | Clinical Summary ---
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 Assessment & [...] Already f w psychiatrist and therapist at [facility] ---advised to continue care and may need eval if meds can be adjusted Chronic low back pain 12/11/2017 Assessment & Plan (06/13/2023 1:43 PM EDT): Not responsive to opiate medications. At this point will send a trial of Lyrica. Will need to proceed with PA for this. Encounters Date Type Department Care Team Description 01/30/2025 Refill [facility] [address] [place] [address] Koki Vu MD Hyperlipidemia, unspecified hyperlipidemia type 01/14/2025 8:30 AM EDT Office Visit [facility] [address] [place] [address] Josee Collazo MD Acquired hypothyroidism (Primary Dx); Prediabetes 01/14/2025 Travel 01/06/2025 Patient Outreach [facility] [address] [place] [address] Koki Vu MD Pre-visit Planning (SDOH screening positive and Tobacco screening negative) 01/01/2025 Telephone [facility] [address] [place] [address] Koki Vu MD Referral 12/20/2024 Population Health Risk Score [facility] (C3) Department [address] [place] [phone] Provider, Population Health Generic 12/01/2024 Refill [facility] [address] [place] [address] Koki Vu MD 11/29/2024 Orders Only GENERIC EXTERNAL DATA DEPARTMENT Provider, Generic External Data 11/28/2024 9:40 AM EST Office Visit [facility] [address] [place] [address] Starr Escobar MD Atopic dermatitis in adult (Primary Dx); Chronic migraine without aura without status migrainosus, not intractable 11/22/2024 8:30 AM EST Office Visit [facility] [address] [place] [address] Tirso Mayfield MD Psoriatic arthritis ([facility]) (Primary Dx) 11/22/2024 Travel 11/20/2024 Telephone [facility] [address] [place] [address] Koki Vu MD Nurse Triage from Last 3 Months Immunizations Name Administration [...] 2 - Risk 2-dose series) 02/12/2020 08/14/2019 COVID-19 Vaccine ( season) 2024 04/27/2022, 09/23/2021, [...] (NON ORDERABLE) Routine 11/29/2024 11:57 AM EST HEPATITIS PANEL, GENERAL Routine 08/13/2024 11:49 AM EST LAB COLOGUARD?? COLON CANCER SCREEN Routine 08/10/2023 3:59 PM EDT Colon cancer screening HM COLONOSCOPY Routine 04/17/2018 6:07 AM EDT from Last 3 Months or Most Recently Relevant to Health Maintenance Results * Hemoglobin A1c (01/14/2025 9:27 AM EDT) Hemoglobin A1c 6.0 <6.0 % [facility] Comment:Hemoglobin A1C Refer ence Range Adults: 4.8 - 6.0 % Non diabetic: < 6.0 % Goal: < 7.0 %Additional Action Suggested: > 8.0 %Note: Hemoglobin A1c results are invalid for patients with abnormal amounts of HbF. Blood transfusions may impact the HbA1c concentration in the patient sample. Estimated Average Glucose 126 mg/dL [facility] Comment:eAG = Estimated ave rage glucose which is %A1C expressed asaverage glucose, using the formula of the C5T-RyuuukhBtpbzal Glucose study (ADAG), Diabetes Care, Vol.31,#8,May. 2007 Blood Venous blood specimen / Unknown 01/14/2025 9:27 AM EDT 01/14/2025 2:06 PM EDT Josee Collazo MD LAB BLOOD ORDERABLES Final Resul t Performing Organization Address [facility] Co de Phone Number [facility] [address] [place] [phone] * TSH with Reflex to Free T4 (01/14/2025 9:22 AM EDT) TSH reflex Free T4 0.88 0.32 - 4.0 uIU/mL [facility] Blood Venous blood specimen / Unknown 01/14/2025 9:22 AM EDT 01/14/2025 2:06 PM EDT Josee Collazo MD LAB BLOOD ORDERABLES Final Resul t Performing Organization Address [facility] Co de Phone Number [facility] [address] [place] [phone] * Hepatic Function Panel (01/14/2025 9:22 AM EDT) Bilirubin, Total 0.3 0.0 - 1.0 mg/dL [facility] Bilirubin, Direct 0.1 0.0 - 0.5 mg/dL [facility] Aspartate Amino Transferase 35 5 - 37 U/L [facility] Alanine Aminotransferase 35 0 - 40 U/L [facility] Total Protein 6.8 6.5 - 8.0 g/dL [facility] Albumin Level 4.1 3.5 - 5.0 g/dL [facility] Alkaline Phosphatase 85 39 - 117 U/L [facility] Blood Venous blood specimen / Unknown 01/14/2025 9:22 AM EDT 01/14/2025 2:06 PM EDT Josee Collazo MD LAB BLOOD ORDERABLES Final Resul t Performing Organization Address [facility] de Phone Number [facility] [address] [place] [phone] * (ABNORMAL) Lipid Panel, Standard (01/14/2025 9:22 AM EDT) Triglycerides 86 <150 mg/dL [facility] Comment:Desirable Triglyceri de: less than 150 mg/dLBorderline High Triglyceride 150-199 mg/dLHigh Triglyceride: 200-499 mg/dLVery High Triglyceride: greater than or equal to 5OO mg/dL Cholesterol 193 <200 mg/dL [facility] Comment:Desirable Cholestero l: less than 200 mg/dLBorderline High Cholesterol: 200-239 mg/dLHigh Cholesterol: greater than 239 mg/dL LDL Cholesterol Calculated 134(H) <100 mg/dL [facility] Comment:Desirable LDL: less than 100 mg/dLNear Optimal/Above Optimal LDL: 110- 129 mg/dLBorderline High LDL: 130-159 mg/dLHigh LDL: 160-189 mg/dLVery High LDL: greater than or equal to 190 mg/dL HDL Cholesterol 42 >40 mg/dL [facility] Comment:Desirable HDL: great er than 40 mg/dL Note: This HDL assay may give artificially low results in patients with liver disease. Blood Venous blood specimen / Unknown 01/14/2025 9:22 AM EDT 01/14/2025 2:06 PM EDT Josee Collazo MD LAB BLOOD ORDERABLES Final Resul t Performing Organization Address [facility]/ZIP Co de Phone Number [facility] [address] [place] [address] [phone] * (ABNORMAL) Basic Metabolic Panel (01/14/2025 9:22 AM EDT) Pathologist [facility] Sodium 142 135 - 145 mmol/L [facility] Potassium 4.1 3.3 - 5.1 mmol/L [facility] Chloride 110(H) 96 - 108 mmol/L [facility] Carbon Dioxide 26 22 - 29 mmol/L [facility] Anion Gap 10(L) 12 - 20 [facility] Urea Nitrogen (BUN) 15 9 - 16 mg/dL [facility] Creatinine, Serum 1.04 0.5 - 1.4 mg/dL [facility] Estimated Glomerular Filt Rate >60 [facility] Comment:Chronic Kidney Disea se: Estimated GFR < 60 mL/min/1.01n5Mktcss Kidney Disease: Estimated GFR < 15 mL/min/1.73m2 Glucose 90 60 - 115 mg/dL [facility] Calcium 9.1 8.4 - 10.2 mg/dL [facility] Blood Venous blood specimen / Unknown 01/14/2025 9:22 AM EDT 01/14/2025 2:06 PM EDT us Josee Collazo MD LAB BLOOD ORDERABLES Final Resul t [facility] [address] [place] [phone] * Rast Allergen (11/29/2024 11:57 AM EST) Pathologist [facility] Rast Allergen SEE NOTE [facility] Comment:SEE SCANNED RESULTS IN EMR 11/29/2024 11:5 7 AM EST 11/29/2024 11:57 AM EST us Generic External Data Provider HISTORICAL/NON OR DERABLE LABS Final Result Performing Organization Address City/[facility]/ZIP Co de Phone Number [facility] [address] [place] [phone] [phone] * Hepatitis Panel, General (08/13/2024 11:49 AM EST) Hepatitis A IgM Nonreactive Nonreactive [facility] Comment:IgM antibodies to TORREZ V not detected; does not exclude earlyacute or recovered HAV infection. ~Hepatitis B Surface Antibody NONREACTIVE Nonreactive [facility] Comment:Nonreactive: < 8.00 mIU/mL Hepatitis B Core Antibody Nonreactive Nonreactive [facility] Hepatitis C Antibody Nonreactive Nonreactive [facility] Comment:Antibodies to HCV no t detected; does not exclude early acuteHCV infection. Hepatitis B Surface Ag Negative Negative [facility] 08/13/2024 11:4 9 AM EST 08/13/2024 11:49 AM EST us Generic External Data Provider LAB BLOOD ORDERAB LES Final Result Performing Organization Address City/State/[facility] Co de Phone Number [facility] [address] [place], [place] [phone] * Cologuard?? colon cancer screening (08/10/2023 3:59 PM EDT) Cologuard Result Negative Negative 08/17/20 9:57 AM EST [employer] [facility] (CLIA #:[id number]) Comment: NEGATIVE TEST RESULT. A negative Cologuard [...] colonoscopy. (Harris Lara, N Engl J Med 2014;370(14):1286- 1297) The normal value (reference range) for this assay is negative. COLOGUARD RE-SCREENING RECOMMENDATION: Periodic colorectal cancer screening is an important part of preventive healthcare for asymptomatic individuals at average risk for colorectal cancer. ??Following a negative Cologuard result, the [place] Cancer Society and U.S. Multi-Society Task Force screening guidelines recommend a Cologuard re-screening interval of 3 years. References: [place] [employer] Guideline for Colorectal Cancer Screening: https://www.cancer.org/cancer/xftgo-nceekk-chbkys/aeifuiugs-ouftaszag-trtvyrn/ac s-rec ommendations.html.; Delroy DK, Rere OTERO, Guy RochaK, Colorectal Cancer Screening: Recommendations for Physicians and Patients from the U.S. Multi-Society Task Force on Colorectal Cancer Screening , Am J Gastroenterology 2017; 112:4724-1484. TEST DESCRIPTION: Composite algorithmic analysis of stool [...] (Harris Albarran al, N Engl J Med 2014;370(14):0107-9590.) Cologuard may produce a false negative or false positive result (no colorectal cancer or precancerous polyp present at colonoscopy follow up). A negative Cologuard test result does not guarantee the absence of CRC or advanced adenoma (pre-cancer). The current Cologuard screening interval is every 3 years. ([place] Cancer Society and U.S. Multi-Society Task Force). Cologuard performance data in a 10,000 patient pivotal study using colonoscopy as the reference method can be accessed at the following location: www.51credit.com/results. Additional description of the Cologuard test process, warnings and precautions can be found at www.cologuard.com. Stool specimen (specimen) 08/10/2023 3:59 PM EDT 08/11/2023 6:19 PM EDT Koki Vu MD LAB MOLECULAR DIAGNOSTICS ORD ERABLES Final Result [employer] [facility] (CLIA #:[id number]) [address] [place] [address], * Colonoscopy (04/17/2018 6:07 AM EDT) Historical Provider HEALTH MAINTENANCE Final Result from Last 3 Months or Most Recently Relevant to Health Maintenance Insurance [facility] C3 Care Teams Lace Roller Relationship Specialty Start Date End Date Koki Vu MD [address] [place] [phone] PCP - General Family Medicine 10/23/20 Addie Manager MoneyComplaint Evaluation Officer 06/17/24
--- OUTSIDE RECORDS SUMMARY | 2025-02-04 06:15 | XMS_ITS | Encounter Summary ---
Author Organization [employer] Address [address] [facility] [address] 7[address] [place] [address] Care Team Providers Care Director Of Leadership Development Name Role Phone Koki Vu MD Primary Care Provider [phone] Encounter Details Date Type Department Care Team (Late st Contact Info) Description 02/05/2024 Orders Only [facility] [address] [place] [address] Provider, MD Nasima Social History Tobacco Use [...] as of this encounter Care Teams Director Of Leadership Development Relationship Specialty Start Date End Date Koki Vu MD [address] [place] [phone] PCP - General Family Medicine 10/23/20 Addie Channel RebuilderLawn Mower Sharpener 06/17/24 documented as of this encounter
--- OUTSIDE RECORDS SUMMARY | 2025-02-04 06:15 | XMS_ITS | Encounter Summary ---
Author Organization [employer] Address [address] [facility] [address] [place] [address] Care Team Providers Care Upholsterer Assembly Line Name Role Phone Koki Vu MD Primary Care Provider [phone] Encounter Details Date Type Department Care Team (Late st Contact Info) Description 08/23/[address] [facility] [address] [place] [address] Koki Vu MD [address] [place] [address] Social History Tobacco Use Types Packs/Day Years [...] documented as of this encounter Care Teams Upholsterer Assembly Line Relationship Specialty Start Date End Date Koki Vu MD [address] [place] [address] PCP - General Family Medicine 10/23/20 Addie Physician SurgeonVegetable Grader 06/17/24 documented as of this encounter
--- OUTSIDE RECORDS SUMMARY | 2025-02-04 06:15 | XMS_ITS | Clinical Summary ---
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 Psoriatic arthritis [...] Already f w psychiatrist and therapist at [facility] ---advised to continue care and may need eval if meds can be adjusted Immunizations Immunization Administration Dates Next Due Hepatitis A Vaccine, Adult Dosage 08/14/2019 Hepatitis B adult (ENGERIX-B ADULT) vaccine 1 mL IM 08/14/2019 Influenza, Injectable, Quadr ivalent, Contains Preservative 09/06/2018,12/11/2017 Influenza, Injectable, Quadr ivalent, Preservative Free 07/31/2023,07/02/2021,08/26/2020,2018 Pneumococcal Conjugate Vacci ne, 13 Valent 06/07/2019 Pneumococcal conjugate PCV20,polysaccharide [id number] conjugate, adjuvant, PF (Prevnar 20) 02/01/2024 RSV, [...] 06/24/2024, , 07/02/2021, Additional history exists Insurance [employer] Care Teams Spray Foam Installer Relationship Specialty Start Date End Date Koki Vu [address] [place] [phone] PCP - General 12/26/23
--- OUTSIDE RECORDS SUMMARY | 2025-02-04 06:15 | XMS_ITS | Encounter Summary ---
Author Organization [employer] Address [address] [facility] 7t [place] [address] Care Team Providers Care Customer Relations Coordinator Name Role Phone Koki Vu MD Primary Care Provider [phone] Reason for Visit * Reason Comments Med Refill Encounter Details Date Type Department Care Team ([facility] st Contact Info) Description 01/30/2025 Refill [facility] [address] [place], [place] [phone] Koki Vu MD [address] [place] [address] Hyperlipidemia, unspecified hyperlipidemia type Social History Tobacco Use Types Packs/Day Years [...] as of this encounter Visit Diagnoses Diagnosis Hyperlipidemia, unspecified hyperlipidemia type documented in this encounter Additional Health Concerns Assessment Noted Time PHQ-9 Depression Total Score: 17 023 11:11 AM EDT documented as of this encounter Care Teams Customer Relations Coordinator Relationship Specialty Start Date End Date Koki Vu MD [address] [place] [phone] PCP - General Family Medicine 10/23/20 Addie Electric Motor Control AssemblerCommercial Fisher 06/17/24 documented as of this encounter
== END 2025-02-04 06:13 | disposition home or self-care (01) ==
LOC: CF 06:12
PROVIDERS: Visit Provider Anesthesiology
DX: M47.812 Spondylosis without myelopathy or radiculopathy, cervical region (principal)
CPT/HCPCS: 64555; J2003

== ENCOUNTER 2025-02-04 08:48 | Outpatient (AMB) | payer MEDICAID, SELFPAY ==
[2025-02-04 08:58] VITALS: BP 120/82; PULSE 74; RESP 16; O2SAT 97
--- NOTE | 2025-02-04 08:58 | A.OFFVIS_ITS ---
Vital Signs 02/04/25 08:58 02/04/25 09:33 BP 120/82 124/76 Blood Pressure Location Lt brachial Lt brachial Position Sitting Sitting Respiration 16 16 Pulse 74 70 Pulse Source Pulse Oximeter Pulse Oximeter Pulse Oximetry (%) 97 98 Oxygen Delivery Method Room Air Room Air Intake Visit Reasons: RIGHT C3 SPRINT PNS TRIAL Grain Elevator Operator Required: Yes Grain Elevator Operator Services: Grain Elevator Operator Present Grain Elevator Operator Name: Petrona [id number] Allergies [id number] [From [employer] Autoinjector] Allergy (Unknown, Verified 02/04/25 08:58) Rash Medication List - Last Reconciled 02/04/25 by Andreia Meyers LPN albuterol sulfate 90 mcg/actuation (ProAir HFA) 2 puffs inhalation Q6H PRN atogepant (Qulipta) 60 mg PO DAILY 30 days atorvastatin 80 mg PO BEDTIME azelastine 137 mcg (0.137 mL) intranasal BID 30 days bumetanide 1 mg PO DAILY 30 days buspirone 15 mg PO BID celecoxib (Celebrex) 200 mg PO BID PRN cholecalciferol (vitamin D3) 50 mcg PO DAILY diclofenac sodium 1% (Voltaren Arthritis Pain) 2 grams topical QID duloxetine 20 mg PO epinephrine IM DIRECTED esomeprazole magnesium 40 mg PO DAILY etanercept (Enbrel SureClick) 50 mg subcut QWEEK fluticasone propion-salmeterol 250-50 mcg/dose (Advair Diskus) 1 ea PO BID fluticasone propionate 50 mcg/actuation 1 spray intranasal DAILY levothyroxine 88 mcg PO DAILY lidocaine 5% 1 patch topical DAILY loratadine 10 mg PO DAILY magnesium oxide 400 mg PO DAILY 90 days methocarbamol 500 mg PO BEDTIME 90 days nortriptyline 10 mg PO BEDTIME polyethylene glycol 3350 (ClearLax) 17 grams PO BID pregabalin 225 mg PO BID riboflavin (vitamin B2) 400 mg PO DAILY 90 days sucralfate 10 mL PO BID sumatriptan succinate 50 - 100 mg orally at onset of headache, may repeat in 2 hrs PRN; max 2 tabs per day or 4 tabs/week (may take with Tylenol) 30 days triamcinolone acetonide 0.1% appl topical DAILY PFSH 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 Venous congestion Pain in right lower leg Lipoma of scalp Kidney cysts Spondylosis of thoracic spine Spondylosis of lumbar spine Schatzki's ring Fatty liver HTN (hypertension) Pre-diabetes Dysphagia Asthma Hx of chest pain DAYNA on CPAP Hypothyroid Psoriasis Psoriatic arthritis Chronic pain Mood disorder Depression Avascular necrosis Chronic pain syndrome Spondylosis of lumbar region without myelopathy or radiculopathy Spondylosis, cervical Degeneration, intervertebral disc, cervical Surgical History History of back surgery History of surgery Status post excision of lipoma (~10/21/21) Status post cardiac catheterization Hx of cardiac cath H/O neck surgery Hx of hand surgery Hx of endoscopy History of colonoscopy Family History Father Cirrhosis Alcoholism Mother Diabetes HTN (hypertension) Parkinson disease Brother Cirrhosis Alcoholism Social History Household Members: Spouse and Children Are you a primary child care centre manager to a significant other at home: No Do you presently have visiting nurse or other home services: No Alcohol intake: never Patient Tobacco Use Status: Former Tobacco user Tobacco use type: Cigarette Second Hand Smoke Exposure: No Current occupational status: disabled Current occupation: rt handed Physical Exam Vital Signs: Last Vital Signs Pulse 70 02/04/25 09:33 Resp 16 02/04/25 09:33 BP 124/76 02/04/25 09:33 Pulse Ox 98 02/04/25 09:33 Oxygen Delivery Method Room Air 02/04/25 09:33 Assessment & Plan Assessment & Plan (1) Spondylosis of cervical region without myelopathy or radiculopathy: Code(s): M47.812 - Spondylosis without myelopathy or radiculopathy, cervical region Category: Medical Plan SPRINT C3 right PNS. Percutaneous implantation of peripheral nerve stimulation Sprint system. After the risks, benefits and alternatives were discussed with the patient and informed consent was obtained, patient was placed in the prone position and padded to foster comfort. Time out was performed delineating correct site and side of the procedure , name and of the patient, patient participated in time out procedure. Entire posterior neck, occipital portion of the head, upper back were prepped with ChloraPrep and draped with sterile utility towels. C-arm was brought over the operating field and clear picture of the C3 lamina on the right was delineated on the screen. The upper central portion of the lamina was chosen as a target of the needle tip insertion . After identifying and marking the intended target, the skin around the planned entry point and the subcutaneous tissues were injected with local anesthetic forming skin wheal.. A percutaneous sleeve and stimulating probe lead introduction system were assembled, inserted and advanced through the skin wheal to the point of interest under C-arm view in tunnel vision fashion, the introducer needle was delivered to a location in proximity to the nerve. Multiple stimulation parameters were used to deliver stimulation to the nerve in concert with stimulating at multiple positions around the nerve. nerve target acquisition was confirmed noting generation of in the corresponding to the nerve being stimulated. Various electrical parameter combinations were tested, and the lead location was adjusted (physically relocated) until the patient indicated overlapping the distribution of the patient?s typical region of pain. The stimulating probe was removed from the introducer and a percutaneous lead was guided through the needle and delivered to a location in similar proximity to the nerve. Final location was verified with electrical stimulation. The introducer needle was removed, and the exposed end of the percutaneous lead was attached to an external stimulator unit. At the end of the case various electrical parameter combinations were again tested until the patient indicated paresthesia or muscle tension overlapping the distribution of the patient?s typical region of pain. After confirming that lead impedance was in the normal range, the external unit was detached, the needle was removed, and the lead was anchored at the skin. The lead was threaded into the connector block and electrical continuity and desired patient response was confirmed. The connector block was attached to the external stimulator unit. The site was covered with a sterile occlusive dressing and a image was taken to document final placement. Orders: Orders FL guidance in treatment room Today M47.812 - Spondylosis without myelopathy or radiculopathy, cervical region Coding Level of Care Code Procedure Only Diagnoses Spondylosis of cervical region without myelopathy or radiculopathy M47.812
--- OUTSIDE RECORDS SUMMARY | 2025-02-04 09:16 | XMS_ITS | Encounter Summary ---
Author Organization [employer] Address [address] [facility] [address] [place] [address] Care Team Providers Care Alumni Relations Manager Name Role Phone Koki Vu MD Primary Care Provider [phone] Reason for Visit * Reason Onset Date Comments Durable Medical Equipment 02/07/2024 Encounter Details Date Type Department Care Team ([facility] st Contact Info) Description 02/07/2024 Telephone [facility] [address] [place] [address] Koki Vu MD [address] [place] [address] Durable Medical Equipment Social History Tobacco Use [...] documented as of this encounter Care Teams Alumni Relations Manager Relationship Specialty Start Date End Date Koki Vu MD [address] [place] [address] PCP - General Family Medicine 10/23/20 Addie Automotive Lube TechnicianEmulsification Operator 06/17/24 documented as of this encounter
--- OUTSIDE RECORDS SUMMARY | 2025-02-04 09:16 | XMS_ITS | Encounter Summary ---
Author Organization [employer] Address [address] [facility] 7t [place] [address] Care Team Providers Care Electronic Communications Technician Name Role Phone Koki Vu MD Primary Care Provider [phone] Reason for Visit * Reason Comments Med Refill Encounter Details Date Type Department Care Team ([facility] st Contact Info) Description 10/25/[address] [facility] CHC MED & PEDS [address] [place], [place] [phone] Koki Vu MD 505 [place] [address] Social History Tobacco Use Types Packs/Day Years [...] documented as of this encounter Care Teams Electronic Communications Technician Relationship Specialty Start Date End Date Koki Vu MD [address] [place] [phone] PCP - General Family Medicine 10/23/20 Addie Shield CleanerWheel Loader Operator 06/17/24 documented as of this encounter
--- OUTSIDE RECORDS SUMMARY | 2025-02-04 09:16 | XMS_ITS | Referral Summary ---
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 Psoriatic arthritis [...] ne, 13 Valent 06/07/2019 Pneumococcal conjugate PCV20,polysaccharide [id number] conjugate, adjuvant, PF (Prevnar 20) 02/01/2024 RSV, [...] [place] [id number] Care Teams Diploma Dental Assistant Relationship Specialty Start Date End Date Koki Vu [address] [place] [phone] PCP - General 12/26/23
--- OUTSIDE RECORDS SUMMARY | 2025-02-04 09:16 | XMS_ITS | Encounter Summary ---
Author Organization [employer] Address [address] [facility] [address] 7[address] [place] [address] Care Team Providers Care Cook Fast Food Name Role Phone Koki Vu MD Primary Care Provider [phone] Encounter Details Date Type Department Care Team ([facility] st Contact Info) Description 09/27/2024 Telephone [facility] CHC MED & PEDS [address] [place], [place] [phone] Koki Vu MD 505 [place] [address] Social History Tobacco Use Types Packs/Day Years [...] EST TC from [place]der flores DO with [facility] pulmonology requesting a call back from pcp to discuss further medical options. Best contact # [phone]. documented in this encounter Plan of Treatment Not on file documented as of this encounter Visit Diagnoses Not on filedocumented in this encounter Additional Health Concerns Assessment Noted Time PHQ-9 Depression Total Score: 17 023 11:11 AM EDT documented as of this encounter Care Teams Cook Fast Food Relationship Specialty Start Date End Date Koki Vu MD [address] [place] [phone] PCP - General Family Medicine 10/23/20 Addie Program Director/Morning Show HostSecurity Assistant 06/17/24 documented as of this encounter
--- OUTSIDE RECORDS SUMMARY | 2025-02-04 09:16 | XMS_ITS | Clinical Summary ---
Author Organization [facility] ity Address [address] [place] [address] Care Team Providers Care Brick Loader Name Role Phone Jessica Rogers MD Primary Care Provider [phone] Social History Tobacco Use Types Packs/Day Years [...] age to complete this topic Care Teams Brick Loader Relationship Specialty Start Date End Date Jessica Rogers MD [address] [place] [address] [phone] PCP - General General Surgery 09/22/21
--- OUTSIDE RECORDS SUMMARY | 2025-02-04 09:16 | XMS_ITS | Clinical Summary ---
Author Organization [facility] Address [address] [place] [address] Care Team Providers Care Online Advertising Analyst Name Role Phone Unavailable Primary Care [...] to complete this topic , [address] [place] [address]
--- OUTSIDE RECORDS SUMMARY | 2025-02-04 09:16 | XMS_ITS | Encounter Summary ---
Author Organization [employer] Address [address] [facility] [address] [address] Care Team Providers Care Mixed Livestock Farmer Name Role Phone Koki Vu MD Primary Care Provider [phone] Reason for Referral * Consultation (Routine) - Closed Specialty Diagnoses / Procedures Referred By Contac t Referred To Contact Rheumatology Diagnoses Erosion of bone Tirso Mayfield MD 505 [place] [address] Phone: tel: fax: [facility] [address] Phone: tel: fax: Referral ID Status Reason Start Date Expiration Date V isits Requested Visits Authorized [id number] Closed Specialty Services Required 08/02/2024 08/02/2025 1 1 Encounter Details Date Type Department Care Team (Late st Contact Info) Description 08/02/2024 Orders Only [facility] CHC MED & PEDS 505 [place] [address] Tirso Mayfield MD [address] [place] [address] Erosion of bone (Primary Dx) Social History [...] AM EDT) Rheumatoid Factor <13.0 <15.0 IU/mL [facility] Blood Venous blood specimen / Unknown 08/08/2024 10:40 AM EDT 08/08/2024 1:17 PM EDT Tirso Jara MD LAB BLOOD ORDERABL ES Final Result Performing Organization Address [facility] de Phone Number [facility] [address] [place] [phone] * Cyclic Citrullinated Peptide (CCP) Antibody (IgG) (08/08/2024 10:40 AM EDT) Cyclic Citrullinated Peptide <16 UNITS [facility] Comment:Reference RangeNegat shalom: <20Weak Positive: 20-39Moderate Positive: 40-59Strong Positive: >59THIS TEST WAS PERFORMED AT:[facility] [place] [phone] RECINOS MD Blood Venous blood specimen / Unknown 08/08/2024 10:40 AM EDT 08/08/2024 1:17 PM EDT Tirso Jara MD LAB BLOOD ORDERABL ES Final Result Performing Organization Address [facility] de Phone Number [facility] [address] [place] [phone] documented in this encounter Visit Diagnoses Diagnosis Erosion of bone- Primary documented in this encounter Additional Health Concerns Assessment Noted Time PHQ-9 Depression Total Score: 17 023 11:11 AM EDT documented as of this encounter Care Teams Mixed Livestock Farmer Relationship Specialty Start Date End Date Koki Vu MD [address] [place] [address] PCP - General Family Medicine 10/23/20 Addie Wash House SupervisorResearch Development Manager 06/17/24 documented as of this encounter
--- OUTSIDE RECORDS SUMMARY | 2025-02-04 09:16 | XMS_ITS | Encounter Summary ---
Author Organization [employer] Address 75 [facility] 7t [place] [address] Care Team Providers Care Cotton Cleaner Name Role Phone Koki Vu MD Primary Care Provider [phone] Reason for Visit * Reason Comments Med Refill Encounter Details Date Type Department Care Team ([facility] st Contact Info) Description 01/30/2025 Refill [facility] CHC MED & PEDS [address] [place], [place] [phone] Koki Vu MD 505 [place] [address] Hyperlipidemia, unspecified hyperlipidemia type Social History Tobacco [...] documented as of this encounter Care Teams Cotton Cleaner Relationship Specialty Start Date End Date Koki Vu MD [address] [place] [address] PCP - General Family Medicine 10/23/20 Addie Water Rights SpecialistLeather Sprayer 06/17/24 documented as of this encounter
--- OUTSIDE RECORDS SUMMARY | 2025-02-04 09:16 | XMS_ITS | Encounter Summary ---
Author Organization [employer] Address 75 [facility] 7t [place] [address] Care Team Providers Care Ice Cream Machine Operator Name Role Phone Koki Vu MD Primary Care Provider [phone] Reason for Visit * Reason Comments Med Refill Encounter Details Date Type Department Care Team ([facility] st Contact Info) Description 03/28/2024 Refill [facility] CHC MED & PEDS [address] [place], [place] [phone] Koki Vu MD 505 [place] [address] Social History Tobacco Use Types Packs/Day Years [...] documented as of this encounter Care Teams Ice Cream Machine Operator Relationship Specialty Start Date End Date Koki Vu MD [address] [place] [phone] PCP - General Family Medicine 10/23/20 Addie Case Management CoordinatorReset Merchandiser 06/17/24 documented as of this encounter
--- OUTSIDE RECORDS SUMMARY | 2025-02-04 09:16 | XMS_ITS | Encounter Summary ---
Author Organization [employer] Address 75 [facility] 7t [place] [address] Care Team Providers Care Sustainable Agriculture Specialist Name Role Phone Koki Vu MD Primary Care Provider [phone] Reason for Visit * Reason Comments Med Refill Encounter Details Date Type Department Care Team ([facility] st Contact Info) Description 10/25/2023 Refill [facility] CHC MED & PEDS 505 [place], [place] [phone] Koki Vu MD 505 [place] [address] Social History Tobacco Use Types Packs/Day Years [...] documented as of this encounter Care Teams Sustainable Agriculture Specialist Relationship Specialty Start Date End Date Koki Vu MD [address] [place] [phone] PCP - General Family Medicine 10/23/20 Addie Flight Operation CoordinatorBpm Solution Architect 06/17/24 documented as of this encounter
--- OUTSIDE RECORDS SUMMARY | 2025-02-04 09:16 | XMS_ITS | Clinical Summary ---
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 Psoriatic arthritis [...] Already f w psychiatrist and therapist at [facility] ---advised to continue care and may need eval if meds can be adjusted Immunizations Immunization Administration Dates Next Due Hepatitis A Vaccine, Adult Dosage 08/14/2019 Hepatitis B adult (ENGERIX-B ADULT) vaccine 1 mL IM 08/14/2019 Influenza, Injectable, Quadr ivalent, Contains Preservative 09/06/2018,12/11/2017 Influenza, Injectable, Quadr ivalent, Preservative Free 07/31/2023,07/02/2021,08/26/2020,2018 Pneumococcal Conjugate Vacci ne, 13 Valent 06/07/2019 Pneumococcal conjugate PCV20,polysaccharide CGQ027 conjugate, adjuvant, PF (Prevnar 20) 02/01/2024 RSV, [...] 06/24/2024, , 07/02/2021, Additional history exists Insurance [employer] Care Teams Visual Merchandising Coordinator Relationship Specialty Start Date End Date Koki Vu [address] [place] [phone] PCP - General 12/26/23
--- OUTSIDE RECORDS SUMMARY | 2025-02-04 09:16 | XMS_ITS | Encounter Summary ---
Author Organization [employer] Address [address] [facility] [address] 7t [place] [address] Care Team Providers Care Sports Management Professor Name Role Phone Koki Vu MD Primary Care Provider [phone] Encounter Details Date Type Department Care Team (Late st Contact Info) Description 02/05/2024 Orders Only [facility] MEDICINE [address] [place] [address] Provider, MD Nasima Social History Tobacco Use [...] documented as of this encounter Care Teams Sports Management Professor Relationship Specialty Start Date End Date Koki Vu MD [address] [place] [address] PCP - General Family Medicine 10/23/20 Addie Cavalry OfficerPhoto Cartographer 06/17/24 documented as of this encounter
--- OUTSIDE RECORDS SUMMARY | 2025-02-04 09:16 | XMS_ITS | Encounter Summary ---
Author Organization [employer] Address [address] [facility] [address] 7t [place] [address] Care Team Providers Care Analysis Intern Name Role Phone Koki Vu MD Primary Care Provider [phone] Encounter Details Date Type Department Care Team (Late st Contact Info) Description 08/23/2023 Abstract [facility] MEDICINE [address] [place] [address] Koki Vu MD [address] [place] [address] Social History Tobacco Use Types Packs/Day Years [...] documented as of this encounter Care Teams Analysis Intern Relationship Specialty Start Date End Date Koki uV MD [address] [place] [address] PCP - General Family Medicine 10/23/20 Addie Support WorkerSustainable Development Policy Analyst 06/17/24 documented as of this encounter
--- OUTSIDE RECORDS SUMMARY | 2025-02-04 09:16 | XMS_ITS | Clinical Summary ---
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 Assessment & [...] Already f w psychiatrist and therapist at [facility] ---advised to continue care and may need eval if meds can be adjusted Chronic low back pain 12/11/2017 Assessment & Plan (06/13/2023 1:43 PM EDT): Not responsive to opiate medications. At this point will send a trial of Lyrica. Will need to proceed with PA for this. Encounters Date Type Department Care Team Description 01/30/2025 Refill [facility] MED & PEDS [address] [place] [address] Koki Vu MD Hyperlipidemia, unspecified hyperlipidemia type 01/14/2025 8:30 AM EDT Office Visit [facility] MED & PEDS [address] [place] [address] Josee Collazo MD Acquired hypothyroidism (Primary Dx); Prediabetes 01/14/2025 Travel 01/06/2025 Patient Outreach [facility] [address] [place] [address] Koki Vu MD Pre-visit Planning (SDOH screening positive and Tobacco screening negative) 01/01/2025 Telephone [facility] [address] [place] [address] Koki Vu MD Referral 12/20/2024 Population Health Risk Score [facility] (C3) Department [address] [place] [phone] Provider, Population Health Generic 12/01/2024 Refill [facility] MED & PEDS [address] [place] [address] Koki Vu MD 11/29/2024 Orders Only GENERIC EXTERNAL DATA DEPARTMENT Provider, Generic External Data 11/28/2024 9:40 AM EST Office Visit [facility] [address] [place] [address] Starr Escobar MD Atopic dermatitis in adult (Primary Dx); Chronic migraine without aura without status migrainosus, not intractable 11/22/2024 8:30 AM EST Office Visit [facility] MED & PEDS [address] [place] [address] Tirso Mayfield MD Psoriatic arthritis ([facility]) (Primary Dx) 11/22/2024 Travel 11/20/2024 Telephone [facility] MED & PEDS [address] [place] [address] Koki Vu MD Nurse Triage from Last [...] AM EDT) Hemoglobin A1c 6.0 <6.0 % [facility] Comment:Hemoglobin A1C Refer ence Range Adults: 4.8 - 6.0 % Non diabetic: < 6.0 % Goal: < 7.0 %Additional Action Suggested: > 8.0 %Note: Hemoglobin A1c results are invalid for patients with abnormal amounts of HbF. Blood transfusions may impact the HbA1c concentration in the patient sample. Estimated Average Glucose 126 mg/dL [facility] Comment:eAG = Estimated ave rage glucose which is %A1C expressed asaverage glucose, using the formula of the V5P-XavpeizGmqtyhv Glucose study (ADAG), Diabetes Care, Vol.31,#8,May. 2007 Blood Venous blood specimen / Unknown 01/14/2025 9:27 AM EDT 01/14/2025 2:06 PM EDT Josee Collazo MD LAB BLOOD ORDERABLES Final Resul t Performing Organization Address [facility] Co de Phone Number [facility] [address] [place] [phone] * TSH with Reflex to Free T4 (01/14/2025 9:22 AM EDT) TSH reflex Free T4 0.88 0.32 - 4.0 uIU/mL [facility] Blood Venous blood specimen / Unknown 01/14/2025 9:22 AM EDT 01/14/2025 2:06 PM EDT Josee Collazo MD LAB BLOOD ORDERABLES Final Resul t Performing Organization Address [facility] Co de Phone Number [facility] [address] [place] [phone] * Hepatic Function Panel (01/14/2025 9:22 AM EDT) Bilirubin, Total 0.3 0.0 - 1.0 mg/dL [facility] Bilirubin, Direct 0.1 0.0 - 0.5 mg/dL [facility] Aspartate Amino Transferase 35 5 - 37 U/L [facility] Alanine Aminotransferase 35 0 - 40 U/L [facility] Total Protein 6.8 6.5 - 8.0 g/dL [facility] Albumin Level 4.1 3.5 - 5.0 g/dL [facility] Alkaline Phosphatase 85 39 - 117 U/L [facility] Blood Venous blood specimen / Unknown 01/14/2025 9:22 AM EDT 01/14/2025 2:06 PM EDT Josee Collazo MD LAB BLOOD ORDERABLES Final Resul t Performing Organization Address [facility] de Phone Number [facility] [address] [place] [phone] * (ABNORMAL) Lipid Panel, Standard (01/14/2025 9:22 AM EDT) Triglycerides 86 <150 mg/dL [facility] Comment:Desirable Triglyceri de: less than 150 mg/dLBorderline High Triglyceride 150-199 mg/dLHigh Triglyceride: 200-499 mg/dLVery High Triglyceride: greater than or equal to 5OO mg/dL Cholesterol 193 <200 mg/dL [facility] Comment:Desirable Cholestero l: less than 200 mg/dLBorderline High Cholesterol: 200-239 mg/dLHigh Cholesterol: greater than 239 mg/dL LDL Cholesterol Calculated 134(H) <100 mg/dL [facility] Comment:Desirable LDL: less than 100 mg/dLNear Optimal/Above Optimal LDL: 110- 129 mg/dLBorderline High LDL: 130-159 mg/dLHigh LDL: 160-189 mg/dLVery High LDL: greater than or equal to 190 mg/dL HDL Cholesterol 42 >40 mg/dL [facility] Comment:Desirable HDL: great er than 40 mg/dL Note: This HDL assay may give artificially low results in patients with liver disease. Blood Venous blood specimen / Unknown 01/14/2025 9:22 AM EDT 01/14/2025 2:06 PM EDT Josee Collazo MD LAB BLOOD ORDERABLES Final Resul t Performing Organization Address [facility]/ZIP Co de Phone Number [facility] [address] [place] [phone] [phone] * (ABNORMAL) Basic Metabolic Panel (01/14/2025 9:22 AM EDT) Pathologist [facility] Sodium 142 135 - 145 mmol/L [facility] Potassium 4.1 3.3 - 5.1 mmol/L [facility] Chloride 110(H) 96 - 108 mmol/L [facility] Carbon Dioxide 26 22 - 29 mmol/L [facility] Anion Gap 10(L) 12 - 20 [facility] Urea Nitrogen (BUN) 15 9 - 16 mg/dL [facility] Creatinine, Serum 1.04 0.5 - 1.4 mg/dL [facility] Estimated Glomerular Filt Rate >60 [facility] Comment:Chronic Kidney Disea se: Estimated GFR < 60 mL/min/1.46a6Bkfpjp Kidney Disease: Estimated GFR < 15 mL/min/1.73m2 Glucose 90 60 - 115 mg/dL [facility] Calcium 9.1 8.4 - 10.2 mg/dL [facility] Blood Venous blood specimen / Unknown 01/14/2025 9:22 AM EDT 01/14/2025 2:06 PM EDT us Josee Collazo MD LAB BLOOD ORDERABLES Final Resul t [facility] [address] [place] [address] [phone] * Rast Allergen (11/29/2024 11:57 AM EST) Pathologist [facility] Rast Allergen SEE NOTE [facility] Comment:SEE SCANNED RESULTS IN EMR 11/29/2024 11:5 7 AM EST 11/29/2024 11:57 AM EST us Generic External Data Provider HISTORICAL/NON OR DERABLE LABS Final Result Performing Organization Address City/[facility]/ZIP Co de Phone Number [facility] [address] [place] [address] [phone] * Hepatitis Panel, General (08/13/2024 11:49 AM EST) Hepatitis A IgM Nonreactive Nonreactive [facility] Comment:IgM antibodies to TORREZ V not detected; does not exclude earlyacute or recovered HAV infection. ~Hepatitis B Surface Antibody NONREACTIVE Nonreactive [facility] Comment:Nonreactive: < 8.00 mIU/mL Hepatitis B Core Antibody Nonreactive Nonreactive [facility] Hepatitis C Antibody Nonreactive Nonreactive [facility] Comment:Antibodies to HCV no t detected; does not exclude early acuteHCV infection. Hepatitis B Surface Ag Negative Negative [facility] 08/13/2024 11:4 9 AM EST 08/13/2024 11:49 AM EST us Generic External Data Provider LAB BLOOD ORDERAB LES Final Result Performing Organization Address City/State/[facility] Co de Phone Number [facility] [address] [place], [place] [phone] * Cologuard?? colon cancer screening (08/10/2023 3:59 PM EDT) Cologuard Result Negative Negative 08/17/20 9:57 AM EST [facility] (CLIA #:[id number]) Comment: NEGATIVE TEST RESULT. A negative Cologuard [...] cancer. ??Following a negative Cologuard result, the [place] [employer] Society and U.S. Multi-Society Task Force screening guidelines recommend a Cologuard re-screening interval of 3 years. References: [place] [employer] Guideline for Colorectal Cancer Screening: https://www.cancer.org/cancer/xuhto-uqdsxe-mvdwnf/zukkcghqe-bdthfoekx-hwwliox/ac s-rec ommendations.html.; Delroy DK, Rere OTERO, Guy RochaK, Colorectal Cancer Screening: Recommendations for Physicians and Patients from the U.S. Multi-Society Task Force on Colorectal Cancer Screening , Am J Gastroenterology 2017; 112:1628-2615. TEST DESCRIPTION: Composite algorithmic analysis of stool [...] (Harris Albarran al, N Engl J Med 2014;370(14):6313-8974.) Cologuard may produce a false negative or false positive result (no colorectal cancer or precancerous polyp present at colonoscopy follow up). A negative Cologuard test result does not guarantee the absence of CRC or advanced adenoma (pre-cancer). The current Cologuard screening interval is every 3 years. ([place] [employer] Society and U.S. Multi-Society Task Force). Cologuard performance data in a 10,000 patient pivotal study using colonoscopy as the reference method can be accessed at the following location: www.Citydeal.de/results. Additional description of the Cologuard test process, warnings and precautions can be found at www.cologuard.com. Stool specimen (specimen) 08/10/2023 3:59 PM EDT 08/11/2023 6:19 PM EDT Koki Vu MD LAB MOLECULAR DIAGNOSTICS ORD ERABLES Final Result [facility] (CLIA #:[id number]) [address] [place] [address], * Colonoscopy (04/17/2018 6:07 AM EDT) Historical Provider HEALTH MAINTENANCE Final Result from Last 3 Months or Most Recently Relevant to Health Maintenance Insurance [facility] C3 Care Teams Chief Executive Or Managing Director Relationship Specialty Start Date End Date Koki Vu MD [address] [place] [phone] PCP - General Family Medicine 10/23/20 Addie Sales Enablement ManagerTripper 06/17/24
[2025-02-04 09:33] VITALS: BP 124/76; PULSE 70; RESP 16; O2SAT 98
== END 2025-02-04 10:10 | disposition home or self-care (01) ==
LOC: HO.PMCPRC 08:48
PROVIDERS: PCP Family Medicine; Visit Provider Anesthesiology
DX: M47.812 Spondylosis without myelopathy or radiculopathy, cervical region (principal)
CPT/HCPCS: 64555

== ENCOUNTER 2025-02-12 10:08 | Outpatient (AMB) | payer MEDICAID, SELFPAY ==
[2025-02-12 10:21] VITALS: BP 159/96; PULSE 72; O2SAT 97; BMI 31.0
--- NOTE | 2025-02-12 10:21 | MHC.OFFVIS ---
Vital Signs 02/12/25 10:21 Height 5 ft 3 in Weight 175 lb BMI 31.0 BP 159/96 H Blood Pressure Location Lt brachial Position Sitting Pulse 72 Pulse Source Doppler Pulse Oximetry (%) 97 Oxygen Delivery Method Room Air Intake Visit Reasons: RIGHT C3 SPRINT PNS TRIAL Allergies [id number] [From Ajovy Autoinjector] Allergy (Unknown, Verified 02/12/25 10:26) Rash HPI Comments Details: Kvng is Back in my office to discuss treatment of his cervicalgia and occipital headache. he had a trial of C2, C3, C4 bilateral medial branch block, he reports for 1st 3 hours after the procedure almost absence of the pain. After the time the pain started to come back but it was not until 5 hours as strong as the pain he had before the procedure. After that he went for sprint PNS C3 on the right side, he is scheduled to complete the procedure on the left side. He reports itching and burning sensation in the projection of the application of the glue. He may be allergic to the glue. We will complete the procedure next Monday. After that I will give the patient 1 more week to report the effectiveness of sprint PNS. We will continue if patient find the device effective. I will schedule him for the appointment with me after that. He with the lower back pain was in my office for very long period of time. He received multiple procedures including medial branch blocks with no improvements transforaminal epidural steroid injections with no improvements, he went for mild procedure which resulted in no improvement of his pain, he went for a trial of Nevro spinal cord stimulator and reported no more than 30% pain improvement. We tried pain pump trial procedures on him twice once with hydromorphone and once with fentanyl. On both times he reported excellent 100% pain relief in the lower back however he reported significant itching requiring administration of Narcan intranasally. Therefore the effect of the opioid medication was eliminated. 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 Venous congestion Pain in right lower leg Lipoma of scalp Kidney cysts Spondylosis of thoracic spine Spondylosis of lumbar spine Schatzki's ring Fatty liver HTN (hypertension) Pre-diabetes Dysphagia Asthma Hx of chest pain DAYNA on CPAP Hypothyroid Psoriasis Psoriatic arthritis Chronic pain Mood disorder Depression Avascular necrosis Chronic pain syndrome Spondylosis of lumbar region without myelopathy or radiculopathy Spondylosis, cervical Degeneration, intervertebral disc, cervical Surgical History History of back surgery History of surgery Status post excision of lipoma (~10/21/21) Status post cardiac catheterization Hx of cardiac cath H/O neck surgery Hx of hand surgery Hx of endoscopy History of colonoscopy Family History Father Cirrhosis Alcoholism Mother Diabetes HTN (hypertension) Parkinson disease Brother Cirrhosis Alcoholism Social History Household Members: Spouse and Children Are you a primary healthcare corporate account director to a significant other at home: No Do you presently have visiting nurse or other home services: No Alcohol intake: never Patient Tobacco Use Status: Former Tobacco user Tobacco use type: Cigarette Second Hand Smoke Exposure: No Current occupational status: disabled Current occupation: rt handed Review of Systems Const All systems reviewed & are unremarkable except as noted in HPI and below Physical Exam Vital Signs: Last Vital Signs Pulse 72 02/12/25 10:21 BP 159/96 H 02/12/25 10:21 Pulse Ox 97 02/12/25 10:21 Oxygen Delivery Method Room Air 02/12/25 10:21 BMI result Body Mass Index 31.0 Const General: cooperative, healthy appearing, comfortable, well developed, alert and awake Nutritional Appearance: average body habitus Orientation/consciousness: patient oriented x3 Limitations: language barrier Eyes Pupils: Equal, round and reactive pupils present EOM: EOMs intact bilaterally Neck Other: On inspection straightened cervical lordosis. Flexion forward and flexion backwards both aggravate the pain however flexion forward aggravate pain less than flexing backwards. Axial compression aggravates pain. Spurling test is negative bilaterally. Lhermitte test is negative. Neck: No full ROM Chest Chest palpation & inspection: normal inspection of the chest Resp Effort & Inspection: normal respiratory effort, able to speak in complete sentences, normal respiratory pattern, no audible wheezes and no cough Cardio Jugular venous distension: no JVD Back/Spine/Pelvis Other: tenderness on palpation in paraspinal spinal region in lumbar spine. Loading test is positive. Range of motion in lumbar spine is preserved. Quincy test happened to be positive on the right. Stinchfield test is positive on the right. Pelvic destruction test might be positive on the right. Tenderness on palpation in paraspinal spinal regions of upper lumbar spine. Loading test is positive on the right. SLR is positive on the right. Neuro General: patient oriented x3 Cranial nerves: Yes Equal, round and reactive pupils present Psych Speech and movement: Normal speech and movement present Affect: normal affect Attitude: cooperative Assessment & Plan Assessment & Plan (1) Sacroiliac joint pain: Code(s): M53.3 - Sacrococcygeal disorders, not elsewhere classified Category: Medical (2) Lumbar radiculopathy: Code(s): M54.16 - Radiculopathy, lumbar region Category: Medical (3) Disc degeneration, lumbar: Code(s): M51.36 - Other intervertebral disc degeneration, lumbar region Category: Medical (4) Chronic pain syndrome: Code(s): G89.4 - Chronic pain syndrome Category: Medical (5) Discogenic cervical pain: Code(s): M50.30 - Other cervical disc degeneration, unspecified cervical region Category: Medical (6) Spondylosis of cervical region without myelopathy or radiculopathy: Code(s): M47.812 - Spondylosis without myelopathy or radiculopathy, cervical region Category: Medical Plan The neck pain of this patient is predominantly axial and not radiating into the upper extremities. It is most likely facetogenic pain. Very promising results of the bilateral medial branch block C2, C3, C4. The stimulation of the right side with sprint PNS was completed now we are waiting for the left side stimulation insertion. It appears that he has some allergic reaction to the glue application. I recommended him to try OTC Benadryl eventually those symptoms should go away. We will continue stimulation 1 week after the insertion of the left side. If patient reports good improvement I will continue with the next 5 weeks. Otherwise the electrodes will be removed. OTC Benadryl recommended to reduce sensation of itching and burning. Patient Instructions: I here by testify that I spent 30 minutes in conversation with this patient as well as planning his care and organizing this note. Lidia Baeza who is certified endless track vehicle mechanic helped us to maintain this conversation in Maori. Coding Level of Care Code Est Pt Level 4 (87389) Diagnoses Sacroiliac joint pain M53.3 Lumbar radiculopathy M54.16 Disc degeneration, lumbar M51.36 Chronic pain syndrome G89.4 Discogenic cervical pain M50.30 Spondylosis of cervical region without myelopathy or radiculopathy M47.812
--- OUTSIDE RECORDS SUMMARY | 2025-02-12 11:22 | XMS_ITS | Clinical Summary ---
Author Organization [facility] ity Address [address] [place] [address] Care Team Providers Care Movie Shot Cameraman Name Role Phone Jessica Rogers MD Primary Care Provider [phone] Social History Tobacco Use Types Packs/Day Years [...] age to complete this topic Care Teams Movie Shot Cameraman Relationship Specialty Start Date End Date Jessica Rogers MD [address] [place] [address] [phone] PCP - General General Surgery 09/22/21
--- OUTSIDE RECORDS SUMMARY | 2025-02-12 11:22 | XMS_ITS | Encounter Summary ---
Author Organization [employer] Address [address] [facility] 7t [place] [address] Care Team Providers Care Aircraft Powerplant Repairer Name Role Phone Koki Vu MD Primary Care Provider [phone] Reason for Visit * Reason Onset Date Comments Durable Medical Equipment 02/07/2024 Encounter Details Date Type Department Care Team ([facility] st Contact Info) Description 02/07/2024 Telephone [facility] CHC MED & PEDS [address] [place] [address] Koki Vu MD [address] [place] [address] Durable Medical Equipment Social History Tobacco Use [...] documented as of this encounter Care Teams Aircraft Powerplant Repairer Relationship Specialty Start Date End Date Koki Vu MD [address] [place] [address] PCP - General Family Medicine 10/23/20 Addie Dining Car ConductorUser Support Analyst 06/17/24 documented as of this encounter
--- OUTSIDE RECORDS SUMMARY | 2025-02-12 11:22 | XMS_ITS | Encounter Summary ---
Author Organization [employer] Address [address] [facility] 7t [place] [address] Care Team Providers Care Motor Home Electrical Foreman Name Role Phone Koki Vu MD Primary Care Provider [phone] Reason for Visit * Reason Comments Med Refill Encounter Details Date Type Department Care Team ([facility] st Contact Info) Description 10/25/2023 Refill [facility] CHC MED & PEDS [address] [place], [place] [phone] Koki Vu MD [address] [place] [address] Social History Tobacco Use Types Packs/Day Years [...] documented as of this encounter Care Teams Motor Home Electrical Foreman Relationship Specialty Start Date End Date Koki Vu MD [address] [place] [phone] PCP - General Family Medicine 10/23/20 Addie Lead Network EngineerTetryl Blender Operator 06/17/24 documented as of this encounter
--- OUTSIDE RECORDS SUMMARY | 2025-02-12 11:22 | XMS_ITS | Clinical Summary ---
Author Organization [facility] Address [address] [place] [address] Care Team Providers Care Concrete Puddler Name Role Phone Unavailable Primary Care Provider [...] to complete this topic , [address] [place] [address]
--- OUTSIDE RECORDS SUMMARY | 2025-02-12 11:22 | XMS_ITS | Encounter Summary ---
Author Organization [employer] Address [address] [facility] 7t [place] [address] Care Team Providers Care Bedspread Cutter Name Role Phone Koki Vu MD Primary Care Provider [phone] Reason for Visit * Reason Comments Med Refill Encounter Details Date Type Department Care Team ([facility] st Contact Info) Description 03/28/2024 Refill [facility] CHC MED & PEDS [address] [place], [place] [phone] Koki Vu MD [address] [place] [address] Social History Tobacco Use Types Packs/Day Years [...] documented as of this encounter Care Teams Bedspread Cutter Relationship Specialty Start Date End Date Koki Vu MD [address] [place] [address] PCP - General Family Medicine 10/23/20 Addie Dramatic Arts HistorianRoad Sign Installer 06/17/24 documented as of this encounter
--- OUTSIDE RECORDS SUMMARY | 2025-02-12 11:22 | XMS_ITS | Clinical Summary ---
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 Psoriatic arthritis [...] ne, 13 Valent 06/07/2019 Pneumococcal conjugate PCV20,polysaccharide [id number] conjugate, adjuvant, PF (Prevnar 20) 02/01/2024 RSV, [...] 06/24/2024, , 07/02/2021, Additional history exists Insurance [employer] Care Teams Batteryman Relationship Specialty Start Date End Date Koki Vu [address] [place] [address] PCP - General 12/26/23
--- OUTSIDE RECORDS SUMMARY | 2025-02-12 11:22 | XMS_ITS | Encounter Summary ---
Author Organization [employer] Address [address] [facility] 7t [place] [address] Care Team Providers Care Tour Counselor Name Role Phone Koki Vu MD Primary Care Provider [phone] Encounter Details Date Type Department Care Team (Late st Contact Info) Description 02/05/2024 Orders Only [facility] MEDICINE [address] [place], [place] [phone] ProviderNasima MD Social History Tobacco Use Types Packs/Day Years [...] documented as of this encounter Care Teams Tour Counselor Relationship Specialty Start Date End Date Koki Vu MD [address] [place] [address] PCP - General Family Medicine 10/23/20 Addie Painter And Grader CorkSchool Lunch Monitor 06/17/24 documented as of this encounter
--- OUTSIDE RECORDS SUMMARY | 2025-02-12 11:22 | XMS_ITS | Encounter Summary ---
Author Organization [employer] Address [address] [address] Care Team Providers Care Sieve Maker Name Role Phone Koki Vu MD Primary Care Provider [phone] Reason for Referral * Consultation (Routine) - Closed Specialty Diagnoses / Procedures Referred By Contac t Referred To Contact Rheumatology Diagnoses Erosion of bone Tirso Mayfield MD [address] [place] [address] Phone: tel: fax: [facility] [address] [place] [address] Phone: tel: fax: Referral ID Status Reason Start Date Expiration Date V isits Requested Visits Authorized [id number] Closed Specialty Services Required 08/02/2024 08/02/2025 1 1 Encounter Details Date Type Department Care Team (Late st Contact Info) Description 08/02/2024 Orders Only [facility] CHC MED & PEDS [address] [place] [address] Tirso Mayfield MD [address] [place], [place] [phone] Erosion of bone (Primary Dx) Social History [...] AM EDT) Rheumatoid Factor <13.0 <15.0 IU/mL [facility] Blood Venous blood specimen / Unknown 08/08/2024 10:40 AM EDT 08/08/2024 1:17 PM EDT Tirso Jara MD LAB BLOOD ORDERABL ES Final Result Performing Organization Address [facility] de Phone Number [facility] [address] [place] [phone] * Cyclic Citrullinated Peptide (CCP) Antibody (IgG) (08/08/2024 10:40 AM EDT) Cyclic Citrullinated Peptide <16 UNITS [facility] Comment:Reference RangeNegat shalom: <20Weak Positive: 20-39Moderate Positive: 40-59Strong Positive: >59THIS TEST WAS PERFORMED AT:[facility] [place] [phone] RECINOS MD Blood Venous blood specimen / Unknown 08/08/2024 10:40 AM EDT 08/08/2024 1:17 PM EDT us Tirso Jara MD LAB BLOOD ORDERABL ES Final Result Performing Organization Address [facility] de Phone Number [facility] [address] [place] [phone] documented in this encounter Visit Diagnoses Diagnosis Erosion of bone- Primary documented in this encounter Additional Health Concerns Assessment Noted Time PHQ-9 Depression Total Score: 17 07/04/ 023 11:11 AM EDT documented as of this encounter Care Teams Sieve Maker Relationship Specialty Start Date End Date Koki Vu MD [address] [place] [address] PCP - General Family Medicine 10/23/20 Addie Store ClerkCar Seat Coverer 06/17/24 documented as of this encounter
--- OUTSIDE RECORDS SUMMARY | 2025-02-12 11:22 | XMS_ITS | Encounter Summary ---
Author Organization [employer] Address [address] [facility] [address] [address] [place] [address] Care Team Providers Care Sample Mounter Name Role Phone Koki Vu MD Primary Care Provider [phone] Encounter Details Date Type Department Care Team (Late st Contact Info) Description 08/23/2023 Abstract [facility] MEDICINE [address] [place] [address] Koki Vu MD [address] [place] [address] Social History Tobacco Use Types Packs/Day Years Used Date Smoking Tobacco: Never Passive Smoke Exposure: Never Smokeless Tobacco: Never Alcohol Use Standard Drinks/Week Comments Never 0 (1 standard drink = 0.6 oz pur e alcohol) Depression Answer Date Recorded Patient Health Questionnaire-9 Score 17 07/04/2023 Housing Stability Answer Date Recorded What is your housing situation today? I have mendyfrancine chan 07/27/[address] you [...] t he electric, gas, oil or water Siriona threatened to shut off services in your [...] documented as of this encounter Care Teams Sample Mounter Relationship Specialty Start Date End Date Koki Vu MD [address] [place] [phone] PCP - General Family Medicine 10/23/20 Addie Stone CarverSurface Miner 06/17/24 documented as of this encounter
--- OUTSIDE RECORDS SUMMARY | 2025-02-12 11:22 | XMS_ITS | Referral Summary ---
Author Organization [facility] Address [address] [place] [address] Care Team Providers Care Early Childhood Assistant Name Role Phone Vu Koki Primary Care Provider [phone] Allergies No known active allergies Medications amitriptyline [...] reports he needs new TSH border for enrichment specialist referal placed in previous appointment. Psoriatic [...] ne, 13 Valent 06/07/2019 Pneumococcal conjugate PCV20,polysaccharide [id number] conjugate, adjuvant, PF (Prevnar 20) 02/01/2024 RSV, [...] [id number] Care Teams Early Childhood Assistant Relationship Specialty Start Date End Date Koki Vu [address] [place] [phone] PCP - General 12/26/23
--- OUTSIDE RECORDS SUMMARY | 2025-02-12 11:22 | XMS_ITS | Encounter Summary ---
Author Organization [employer] Address [address] [facility] 7t [place] [address] Care Team Providers Care Greaser Helper Name Role Phone Koki Vu MD Primary Care Provider [phone] Reason for Visit * Reason Comments Med Refill Encounter Details Date Type Department Care Team ([facility] st Contact Info) Description 10/25/2023 Refill [facility] CHC MED & PEDS [address] [place], [place] [phone] Koki Vu MD [address] [place] [address] Social History Tobacco Use Types Packs/Day Years [...] documented as of this encounter Care Teams Greaser Helper Relationship Specialty Start Date End Date Koki Vu MD [address] [place] [address] PCP - General Family Medicine 10/23/20 Addie Quality Control MicrobiologistOrchestra Director 06/17/24 documented as of this encounter
--- OUTSIDE RECORDS SUMMARY | 2025-02-12 11:22 | XMS_ITS | Encounter Summary ---
Author Organization [employer] Address [address] [facility] 7t [place] [address] Care Team Providers Care Director Global Development Name Role Phone Koki Vu MD Primary Care Provider [phone] Encounter Details Date Type Department Care Team ([facility] st Contact Info) Description 09/27/2024 Telephone [facility] CHC MED & PEDS [address] [place], [place] [phone] Koki Vu MD [address] [place] [address] Social History Tobacco Use Types Packs/Day Years [...] EST TC from Satinder flores DO with [facility] pulmonology requesting a call back from pcp to discuss further medical options. Best contact # [phone]. documented in this encounter Plan of Treatment Not on file documented as of this encounter Visit Diagnoses Not on filedocumented in this encounter Additional Health Concerns Assessment Noted Time PHQ-9 Depression Total Score: 17 023 11:11 AM EDT documented as of this encounter Care Teams Director Global Development Relationship Specialty Start Date End Date Koki Vu MD [address] [place] [address] PCP - General Family Medicine 10/23/20 Addie Correctional OfficerIndian Nanny 06/17/24 documented as of this encounter
--- OUTSIDE RECORDS SUMMARY | 2025-02-12 11:22 | XMS_ITS | Clinical Summary ---
Author Organization [employer] Address [address] [place] [address] [address] [place] [address] Care Team Providers Care Program Support Specialist Name Role Phone Koki Vu MD Primary Care Provider [phone] Allergies No known active allergies Medications lactulose [...] Take 40 mg by mouth at bedtime. Active fluticasone (Flonase) 50 MCG/ACT nasal spray [...] affected areas of hands. 100 g 1 Active ibuprofen 600 MG tablet Take 600 mg by mouth. 024 Active SUMAtriptan (Imitrex) 100 MG tablet TAKE 1/2 TO 1 TABLET BY MOUTH AT ONSET OF HEADACHE, MAY REPEAT DOSE IN 2 HOURS NEEDED FOR MIGRAINE. DO NOT EXCEED 2 TABLETS PER DAY OR 4 TABLETS PER WEEK. MAY TAKE WITH tylenol. Active triamcinolone (Kenalog) 0.1 % cream Mix with cerave cream and apply 1x/d 80 g 2 Active pregabalin (Lyrica) 225 MG capsule TAKE 1 CAPSULE BY MOUTH TWICE DAILY 60 capsule 1 025 Active atorvastatin (Lipitor) 80 MG tabletIndications :Hyperlipidemia, unspecified hyperlipidemia type TAKE 1 TABLET BY MOUTH EVERY DAY AT BEDTIME 90 tablet 1 025 Active atorvastatin (Lipitor) 80 MG tabletIndications :Hyperlipidemia, unspecified hyperlipidemia type TAKE 1 TABLET BY MOUTH EVERY DAY AT BEDTIME 90 tablet 1 024 2024 Discontinued Active Problems Problem Noted Date Diagnosed Date [...] reports he needs new TSH border for holistic specialist referal placed in previous appointment. Assessment & [...] Type Department Care Team Description 01/30/2025 Refill [facility] [address] [place] [address] Koki Vu MD Hyperlipidemia, unspecified hyperlipidemia type 01/14/2025 8:30 AM EDT Office Visit [facility] [address] [place] [address] Josee Collazo MD Acquired hypothyroidism (Primary Dx); Prediabetes 01/14/2025 Travel 01/06/2025 Patient Outreach [facility] [address] [place] [phone] Koki Vu MD Pre-visit Planning (SDOH screening positive and Tobacco screening negative) 01/01/2025 Telephone [facility] [address] [place] [phone] Koki Vu MD Referral 12/20/2024 Population Health Risk Score [facility] ([facility] Department [address] [place] [phone] Provider, Population Health Generic 12/01/2024 Refill [facility] [address] [place] [address] Koki Vu MD 11/29/2024 Orders Only GENERIC EXTERNAL DATA DEPARTMENT Provider, Generic External Data 11/28/2024 9:40 AM EST Office Visit [facility] [address] [place] [phone] Starr Escobar MD Atopic dermatitis in adult (Primary Dx); Chronic migraine without aura without status migrainosus, not intractable 11/22/2024 8:30 AM EST Office Visit [facility] [address] [place] [address] Tirso Mayfield MD Psoriatic arthritis (CMS/HCC) (Primary Dx) 11/22/2024 Travel 11/20/2024 Telephone [facility] [address] [place] [address] Koki Vu MD Nurse Triage from Last [...] AM EDT) Hemoglobin A1c 6.0 <6.0 % [facility] Comment:Hemoglobin A1C Refer ence Range Adults: 4.8 - 6.0 % Non diabetic: < 6.0 % Goal: < 7.0 %Additional Action Suggested: > 8.0 %Note: Hemoglobin A1c results are invalid for patients with abnormal amounts of HbF. Blood transfusions may impact the HbA1c concentration in the patient sample. Estimated Average Glucose 126 mg/dL [facility] Comment:eAG = Estimated ave rage glucose which is %A1C expressed asaverage glucose, using the formula of the L5W-OrglfarCwjiouv Glucose study (ADAG), Diabetes Care, Vol.31,#8,2007 Blood Venous blood specimen / Unknown 01/14/2025 9:27 AM EDT 01/14/2025 2:06 PM EDT Josee Collazo MD LAB BLOOD ORDERABLES Final Resul t Performing Organization Address [facility] de Phone Number [facility] [address] [place] [phone] * TSH with Reflex to Free T4 (01/14/2025 9:22 AM EDT) Pathologist [facility] TSH reflex Free T4 0.88 0.32 - 4.0 uIU/mL [facility] Blood Venous blood specimen / Unknown 01/14/2025 9:22 AM EDT 01/14/2025 2:06 PM EDT Josee Collazo MD LAB BLOOD ORDERABLES Final Resul t Performing Organization Address [facility] Co de Phone Number [facility] [address] [place] [phone] * Hepatic Function Panel (01/14/2025 9:22 AM EDT) Bilirubin, Total 0.3 0.0 - 1.0 mg/dL [facility] Bilirubin, Direct 0.1 0.0 - 0.5 mg/dL [facility] Aspartate Amino Transferase 35 5 - 37 U/L [facility] Alanine Aminotransferase 35 0 - 40 U/L [facility] Total Protein 6.8 6.5 - 8.0 g/dL [facility] Albumin Level 4.1 3.5 - 5.0 g/dL [facility] Alkaline Phosphatase 85 39 - 117 U/L [facility] Blood Venous blood specimen / Unknown 01/14/2025 9:22 AM EDT 01/14/2025 2:06 PM EDT us Josee Collazo MD LAB BLOOD ORDERABLES Final Resul t [facility] [address] [place] [phone] * (ABNORMAL) Lipid Panel, Standard (01/14/2025 9:22 AM EDT) Triglycerides 86 <150 mg/dL [facility] Comment:Desirable Triglyceri de: less than 150 mg/dLBorderline High Triglyceride 150-199 mg/dLHigh Triglyceride: 200-499 mg/dLVery High Triglyceride: greater than or equal to 5OO mg/dL Cholesterol 193 <200 mg/dL [facility] Comment:Desirable Cholestero l: less than 200 mg/dLBorderline High Cholesterol: 200-239 mg/dLHigh Cholesterol: greater than 239 mg/dL LDL Cholesterol Calculated 134(H) <100 mg/dL [facility] Comment:Desirable LDL: less than 100 mg/dLNear Optimal/Above Optimal LDL: 110- 129 mg/dLBorderline High LDL: 130-159 mg/dLHigh LDL: 160-189 mg/dLVery High LDL: greater than or equal to 190 mg/dL HDL Cholesterol 42 >40 mg/dL [facility] Comment:Desirable HDL: great er than 40 mg/dL Note: This HDL assay may give artificially low results in patients with liver disease. Blood Venous blood specimen / Unknown 01/14/2025 9:22 AM EDT 01/14/2025 2:06 PM EDT us Josee Collazo MD LAB BLOOD ORDERABLES Final Resul t Performing Organization Address [facility] de Phone Number [facility] [address] [place] [phone] * (ABNORMAL) Basic Metabolic Panel (01/14/2025 9:22 AM EDT) Sodium 142 135 - 145 mmol/L [facility] Potassium 4.1 3.3 - 5.1 mmol/L [facility] Chloride 110(H) 96 - 108 mmol/L [facility] Carbon Dioxide 26 22 - 29 mmol/L [facility] Anion Gap 10(L) 12 - 20 [facility] Urea Nitrogen (BUN) 15 9 - 16 mg/dL [facility] Creatinine, Serum 1.04 0.5 - 1.4 mg/dL [facility] Estimated Glomerular Filt Rate >60 [facility] Comment:Chronic Kidney Disea se: Estimated GFR < 60 mL/min/[id number] Kidney Disease: Estimated GFR < 15 mL/min/1.73m2 Glucose 90 60 - 115 mg/dL [facility] Calcium 9.1 8.4 - 10.2 mg/dL [facility] Blood Venous blood specimen / Unknown 01/14/2025 9:22 AM EDT 01/14/2025 2:06 PM EDT us Josee Collazo MD LAB BLOOD ORDERABLES Final Resul t Performing Organization Address City/[facility]/ZIP Co de Phone Number [facility] [address] [place] [phone] * Rast Allergen (11/29/2024 11:57 AM EST) Rast Allergen SEE NOTE [facility] Comment:SEE SCANNED RESULTS IN EMR 11/29/2024 11:5 7 AM EST 11/29/2024 11:57 AM EST us Generic External Data Provider HISTORICAL/NON OR DERABLE LABS Final Result Performing Organization Address [facility] Co de Phone Number [facility] [address] [place] [address] [phone] * Hepatitis Panel, General (08/13/2024 11:49 AM EST) Pathologist [facility] Hepatitis A IgM Nonreactive Nonreactive [facility] Comment:IgM antibodies to TORREZ V not detected; does not exclude earlyacute or recovered HAV infection. ~Hepatitis B Surface Antibody NONREACTIVE Nonreactive [facility] Comment:Nonreactive: < 8.00 mIU/mL Hepatitis B Core Antibody Nonreactive Nonreactive [facility] Hepatitis C Antibody Nonreactive Nonreactive [facility] Comment:Antibodies to HCV no t detected; does not exclude early acuteHCV infection. Hepatitis B Surface Ag Negative Negative [facility] 08/13/2024 11:4 9 AM EST 08/13/2024 11:49 AM EST us Generic External Data Provider LAB BLOOD ORDERAB LES Final Result Performing Organization Address [facility] Co de Phone Number [facility] [address] [place] [address] [phone] * Cologuard?? colon cancer screening (08/10/2023 3:59 PM EDT) Pathologist [facility] Cologuard Result Negative Negative 08/17/20 9:57 AM EST [facility] (CLIA #:[id number]) Comment: NEGATIVE TEST RESULT. A negative Cologuard [...] cancer. ??Following a negative Cologuard result, the [place] [employer] Society and U.S. Multi-Society Task Force screening guidelines recommend a Cologuard re-screening interval of 3 years. References: [place] [employer] Guideline for Colorectal Cancer Screening: https://www.cancer.org/cancer/pdtfc-dwbdjc-zagrna/fjgelgqeb-dqhbizwqw-xjnuzpx/ac s-rec ommendations.html.; Delroy DK, Rere CR, Guy RochaK, Colorectal Cancer Screening: Recommendations for Physicians and Patients from the U.S. Multi-Society Task Force on Colorectal Cancer Screening , Am J Gastroenterology 2017; 112:5256-5141. TEST DESCRIPTION: Composite algorithmic analysis of stool [...] colonoscopy. (Harris Lara, N Engl J Med 2014;370(14):9494-9555.) Cologuard may produce a false negative or false positive result (no colorectal cancer or precancerous polyp present at colonoscopy follow up). A negative Cologuard test result does not guarantee the absence of CRC or advanced adenoma (pre-cancer). The current Cologuard screening interval is every 3 years. ([place] [employer] Society and U.S. Multi-Society Task Force). Cologuard performance data in a 10,000 patient pivotal study using colonoscopy as the reference method can be accessed at the following location: www.irisnote.[employer]/results. Additional description of the Cologuard test process, warnings and precautions can be found at www.[email or web address] Medical[employer].com. Stool specimen (specimen) 08/10/2023 3:59 PM EDT 08/11/2023 6:19 PM EDT Koki Vu MD LAB MOLECULAR DIAGNOSTICS ORD ERABLES Final Result [employer] (CLIA #:[id number]) [address] [place] [phone], * Colonoscopy (04/17/2018 6:07 AM EDT) Historical Provider HEALTH MAINTENANCE Final Result from Last 3 Months or Most Recently Relevant to Health Maintenance [place] [address] [address] C3 Care Teams Program Support Specialist Relationship Specialty Start Date End Date Koik Vu MD [address] [place] [phone] PCP - General Family Medicine 10/23/20 Addie Geographic Area Intelligence OfficerNursing Home Assistant Administrator 06/17/24
== END 2025-02-12 10:50 | disposition home or self-care (01) ==
LOC: HO.PMC 10:08
PROVIDERS: PCP Family Medicine; Visit Provider Anesthesiology
DX: M53.3 Sacrococcygeal disorders, not elsewhere classified (principal); M54.16 Radiculopathy, lumbar region; M51.369 Other intervertebral disc degeneration, lumbar region without mention of lumbar back pain or lower extremity pain; G89.4 Chronic pain syndrome; M50.30 Other cervical disc degeneration, unspecified cervical region; M47.812 Spondylosis without myelopathy or radiculopathy, cervical region
CPT/HCPCS: 99024

== ENCOUNTER → 2025-02-12 10:08 | Outpatient (BNVA) | payer MEDICAID, SELFPAY | PROVIDERS: PCP Family Medicine; Visit Provider Anesthesiology | DX: M53.3 Sacrococcygeal disorders, not elsewhere classified (principal); M54.16 Radiculopathy, lumbar region; M51.360 Other intervertebral disc degeneration, lumbar region with discogenic back pain only; M50.30 Other cervical disc degeneration, unspecified cervical region; M47.812 Spondylosis without myelopathy or radiculopathy, cervical region; G89.4 Chronic pain syndrome | CPT/HCPCS: 99212 ==

== ENCOUNTER 2025-02-18 06:16 | Outpatient (REF) | payer MEDICAID, SELFPAY ==
--- NOTE | ~2025-02-18 | FL_ITS ---
EXAMINATION: FL GUIDANCE ONLY HISTORY: M47.812 - Spondylosis without myelopathy or radiculopathy, cervical region COMPARISON: None available. TECHNIQUE: Fluoroscopy time: 0.4 minutes. Cumulative Dose: 4.68 mGy. DAP: 0.0378 mGym2 Images: 1. FINDINGS: Fluoroscopic spot films of the cervical spine in the AP projection demonstrate a lead in place on the left. FL/FL guidance in treatment room IMPRESSION: Fluoroscopy during procedure. Please see procedure report for additional information. Electronically signed by: Kannan Santiago MD 02/18/2025 01:07 PM EDT
--- OUTSIDE RECORDS SUMMARY | 2025-02-18 06:18 | XMS_ITS | Clinical Summary ---
Author Organization [facility] Address [address] [place] [address] Care Team Providers Care Machine Coil Assembler Name Role Phone Jessica Rogers MD Primary Care Provider [phone] Social History Tobacco Use Types Packs/Day Years [...] age to complete this topic Care Teams Machine Coil Assembler Relationship Specialty Start Date End Date Jessica Rogers MD [address] [place] [phone] PCP - General General Surgery 09/22/21
--- OUTSIDE RECORDS SUMMARY | 2025-02-18 06:18 | XMS_ITS | Clinical Summary ---
Author Organization [facility] Address [address] [place] [address] Care Team Providers Care Rubber Press Tender Name Role Phone VuKoki Primary Care Provider [phone] Allergies No known active allergies Medications [...] reports he needs new TSH border for moisture tester referal placed in previous appointment. Psoriatic arthritis [...] Already f w psychiatrist and therapist at [facility] ---advised to continue care and may need eval if meds can be adjusted Immunizations Immunization Administration Dates Next Due Hepatitis A Vaccine, Adult Dosage 08/14/2019 Hepatitis B adult (ENGERIX-B ADULT) vaccine 1 mL IM 08/14/2019 Influenza, Injectable, Quadr ivalent, Contains Preservative 09/06/2018,12/11/2017 Influenza, Injectable, Quadr ivalent, Preservative Free 07/31/2023,07/02/2021,08/26/2020,2018 Pneumococcal Conjugate Vacci ne, 13 Valent 06/07/2019 Pneumococcal conjugate PCV20,polysaccharide [id number] conjugate, adjuvant, PF (Prevnar 20) 02/01/2024 RSV, [...] 06/24/2024, , 07/02/2021, Additional history exists Insurance [employer] Care Teams Rubber Press Tender Relationship Specialty Start Date End Date Koki Vu [address] [place] [phone] PCP - General 12/26/23
--- OUTSIDE RECORDS SUMMARY | 2025-02-18 06:18 | XMS_ITS | Clinical Summary ---
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 Assessment & [...] Encounters Date Type Department Care Team Description 02/17/2025 Telephone [facility] [address] [place] [address] Koki Vu MD 01/30/2025 Refill [facility] [address] [place] [address] Koki Vu MD Hyperlipidemia, unspecified hyperlipidemia type 01/14/2025 8:30 AM EDT Office Visit [facility] MED [facility] PEDS [address] [place] [address] Josee Collazo MD Acquired hypothyroidism (Primary Dx); Prediabetes 01/14/2025 Travel 01/06/2025 Patient Outreach [facility] [address] [place] [phone] Koki Vu MD Pre-visit Planning (SDOH screening positive and Tobacco screening negative) 01/01/2025 Telephone [facility] [address] [place] [phone] Koki Vu MD Referral 12/20/2024 Population Health Risk Score [facility] (C3) Department [address] [place] [phone] Provider, Population Health Generic 12/01/2024 Refill [facility]S [address] [place] [address] Koki Vu MD 11/29/2024 Orders Only GENERIC EXTERNAL DATA DEPARTMENT Provider, Generic External Data 11/28/2024 9:40 AM EST Office Visit [facility] [address] [place] [phone] Starr Escobar MD Atopic dermatitis in adult (Primary Dx); Chronic migraine without aura without status migrainosus, not intractable 11/22/2024 8:30 AM EST Office Visit [facility] MED [facility] PEDS [address] [place] [address] Tirso Mayfield MD Psoriatic arthritis ([facility]) (Primary Dx) 11/22/2024 Travel from Last 3 Months Immunizations Name Administration [...] 01/14/2025 8:43 AM EDT Plan of Treatment Upcoming Encounters Date Type Department Care Team (Late st Contact Info) Description 04/04/2025 8:45 AM EDT Office Visit [facility] MED & PEDS [address] [place] [address] Koki Vu MD [address] [place] [address] Health Maintenance Due Date Last Done Comments [...] 08/10/2023 3:59 PM EDT Colon cancer screening COLONOSCOPY Routine 04/17/2018 6:07 AM EDT from Last 3 Months or Most Recently Relevant to Health Maintenance Results * Hemoglobin A1c (01/14/2025 9:27 AM EDT) Hemoglobin A1c 6.0 <6.0 % [facility] Comment:Hemoglobin A1C Refer ence Range Adults: 4.8 - 6.0 % Non diabetic: < 6.0 % Goal: < 7.0 %Additional Action Suggested: > 8.0 %Note: Hemoglobin A1c results are invalid for patients with abnormal amounts of HbF. Blood transfusions may impact the HbA1c concentration in the patient sample. Estimated Average Glucose 126 mg/dL [facility] Comment:eAG = Estimated ave rage glucose which is %A1C expressed asaverage glucose, using the formula of the Z3J-LssjritViavwhs Glucose study (ADAG), Diabetes Care, Vol.31,#8,May. 2007 Blood Venous blood specimen / Unknown 01/14/2025 9:27 AM EDT 01/14/2025 2:06 PM EDT Josee Collazo MD LAB BLOOD ORDERABLES Final Resul t Performing Organization Address City/[facility]/ZIP Co de Phone Number [facility] [address] [place] [phone] * TSH with Reflex to Free T4 (01/14/2025 9:22 AM EDT) TSH reflex Free T4 0.88 0.32 - 4.0 uIU/mL [facility] Blood Venous blood specimen / Unknown 01/14/2025 9:22 AM EDT 01/14/2025 2:06 PM EDT us Josee Collazo MD LAB BLOOD ORDERABLES Final Resul t Performing Organization Address City/[facility]/ZIP Co de Phone Number [facility] [address] [place] [phone] * Hepatic Function Panel (01/14/2025 9:22 AM EDT) Bilirubin, Total 0.3 0.0 - 1.0 mg/dL [facility] Bilirubin, Direct 0.1 0.0 - 0.5 mg/dL [facility] Aspartate Amino Transferase 35 5 - 37 U/L [facility] Alanine Aminotransferase 35 0 - 40 U/L [facility] Total Protein 6.8 6.5 - 8.0 g/dL [facility] Albumin Level 4.1 3.5 - 5.0 g/dL [facility] Alkaline Phosphatase 85 39 - 117 U/L [facility] Blood Venous blood specimen / Unknown 01/14/2025 9:22 AM EDT 01/14/2025 2:06 PM EDT us Josee Collazo MD LAB BLOOD ORDERABLES Final Resul t [facility] [address] [place] [address] [phone] * (ABNORMAL) Lipid Panel, Standard (01/14/2025 9:22 AM EDT) Pathologist [facility] Triglycerides 86 <150 mg/dL [facility] Comment:Desirable Triglyceri de: less than 150 mg/dLBorderline High Triglyceride 150-199 mg/dLHigh Triglyceride: 200-499 mg/dLVery High Triglyceride: greater than or equal to 5OO mg/dL Cholesterol 193 <200 mg/dL [facility] Comment:Desirable Cholestero l: less than 200 mg/dLBorderline High Cholesterol: 200-239 mg/dLHigh Cholesterol: greater than 239 mg/dL LDL Cholesterol Calculated 134(H) <100 mg/dL [facility] Comment:Desirable LDL: less than 100 mg/dLNear Optimal/Above Optimal LDL: 110- 129 mg/dLBorderline High LDL: 130-159 mg/dLHigh LDL: 160-189 mg/dLVery High LDL: greater than or equal to 190 mg/dL HDL Cholesterol 42 >40 mg/dL [facility] Comment:Desirable HDL: great er than 40 mg/dL Note: This HDL assay may give artificially low results in patients with liver disease. Blood Venous blood specimen / Unknown 01/14/2025 9:22 AM EDT 01/14/2025 2:06 PM EDT Josee Collazo MD LAB BLOOD ORDERABLES Final Resul t Performing Organization Address [facility] Co de Phone Number [facility] [address] [place] [phone] * (ABNORMAL) Basic Metabolic Panel (01/14/2025 9:22 AM EDT) Sodium 142 135 - 145 mmol/L [facility] Potassium 4.1 3.3 - 5.1 mmol/L [facility] Chloride 110(H) 96 - 108 mmol/L [facility] Carbon Dioxide 26 22 - 29 mmol/L [facility] Anion Gap 10(L) 12 - 20 [facility] Urea Nitrogen (BUN) 15 9 - 16 mg/dL [facility] Creatinine, Serum 1.04 0.5 - 1.4 mg/dL [facility] Estimated Glomerular Filt Rate >60 [facility] Comment:Chronic Kidney Disea se: Estimated GFR < 60 mL/min/1.25n6Pgfadv Kidney Disease: Estimated GFR < 15 mL/min/1.73m2 Glucose 90 60 - 115 mg/dL [facility] Calcium 9.1 8.4 - 10.2 mg/dL [facility] Blood Venous blood specimen / Unknown 01/14/2025 9:22 AM EDT 01/14/2025 2:06 PM EDT Josee Collazo MD LAB BLOOD ORDERABLES Final Resul t Performing Organization Address [facility]/ZIP Co de Phone Number [facility] [address] [place] [phone] * Rast Allergen (11/29/2024 11:57 AM EST) Pathologist [facility] Rast Allergen SEE NOTE [facility] Comment:SEE SCANNED RESULTS IN EMR 11/29/2024 11:5 7 AM EST 11/29/2024 11:57 AM EST Generic External Data Provider HISTORICAL/NON OR DERABLE LABS Final Result Performing Organization Address [facility] Co de Phone Number [facility] [address] [place] [phone] [phone] * Hepatitis Panel, General (08/13/2024 11:49 AM EST) [facility] Hepatitis A IgM Nonreactive Nonreactive [facility] Comment:IgM antibodies to TORREZ V not detected; does not exclude earlyacute or recovered HAV infection. ~Hepatitis B Surface Antibody NONREACTIVE Nonreactive [facility] Comment:Nonreactive: < 8.00 mIU/mL Hepatitis B Core Antibody Nonreactive Nonreactive [facility] Hepatitis C Antibody Nonreactive Nonreactive [facility] Comment:Antibodies to HCV no t detected; does not exclude early acuteHCV infection. Hepatitis B Surface Ag Negative Negative [facility] 08/13/2024 11:4 9 AM EST 08/13/2024 11:49 AM EST Generic External Data Provider LAB BLOOD ORDERAB LES Final Result Performing Organization Address [facility] Co de Phone Number [facility] [address] [place] [address] [phone] * Cologuard?? colon cancer screening (08/10/2023 3:59 PM EDT) [facility] Cologuard Result Negative Negative 08/17/20 9:57 AM EST [facility] (CLIA #:[id number]) Comment: NEGATIVE TEST RESULT. A negative Cologuard [...] cancer. ??Following a negative Cologuard result, the [place] Cancer Society and U.S. Multi-Society Task Force screening guidelines recommend a Cologuard re-screening interval of 3 years. References: [place] [employer] Society Guideline for Colorectal Cancer Screening: https://www.cancer.org/cancer/yvahp-yiadae-sfwizv/gvkvyjztl-uolrskcih-sqqcutd/ac s-rec ommendations.html.; Delroy MULLIGAN, Rere OTERO, Guy RochaK, Colorectal Cancer Screening: Recommendations for Physicians and Patients from the U.S. Multi-Society Task Force on Colorectal Cancer Screening , Am J Gastroenterology 2017; 112:1975-6055. TEST DESCRIPTION: Composite algorithmic analysis of stool [...] (Harris Albarran al, N Engl J Med 2014;370(14):7653-0017.) Cologuard may produce a false negative or false positive result (no colorectal cancer or precancerous polyp present at colonoscopy follow up). A negative Cologuard test result does not guarantee the absence of CRC or advanced adenoma (pre-cancer). The current Cologuard screening interval is every 3 years. ([place] Cancer Society and U.S. Multi-Society Task Force). Cologuard performance data in a 10,000 patient pivotal study using colonoscopy as the reference method can be accessed at the following location: www.Stublisher/results. Additional description of the Cologuard test process, warnings and precautions can be found at www.TauliaogCurbStandrd.Delfmems. Stool specimen (specimen) 08/10/2023 3:59 PM EDT 08/11/2023 6:19 PM EDT Koki Vu MD LAB MOLECULAR DIAGNOSTICS ORD ERABLES Final Result [facility] (CLIA #:[id number]) [place] [address], * Colonoscopy (04/17/2018 6:07 AM EDT) Historical Provider HEALTH MAINTENANCE Final Result from Last 3 Months or Most Recently Relevant to Health Maintenance Insurance Care Teams Line Operator Relationship Specialty Start Date End Date Koki Vu MD [address] [place] [phone] PCP - General Family Medicine 10/23/20 Addie Embroidery PatternmakerFisher Line 06/17/24
--- OUTSIDE RECORDS SUMMARY | 2025-02-18 06:18 | XMS_ITS | Encounter Summary ---
Author Organization [employer] Address [address] [facility] 7t [place] [address] Care Team Providers Care Software Test Automation Engineer Name Role Phone Koki Vu MD Primary Care Provider [phone] Reason for Visit * Reason Onset Date Comments Durable Medical Equipment 02/07/2024 Encounter Details Date Type Department Care Team ([facility] st Contact Info) Description 02/07/2024 Telephone [facility] & PEDS [address] [place] [address] Koki Vu MD [address] [place] [address] Durable Medical Equipment Social History Tobacco Use [...] Miscellaneous Notes * Telephone Encounter - Xenia Qiules - 02/07/2024 2:07 PM EDT Tc from unruly with ICP requesting a power lift chair to be sent to [facility]. documented in this encounter Plan of Treatment Upcoming Encounters Date Type Department Care Team (Late st Contact Info) Description 04/04/2025 8:45 AM EDT Office Visit [facility] MED & PEDS [address] [place] [address] Koki Vu MD [address] [place] [address] documented as of this encounter Visit Diagnoses Not on filedocumented in this encounter Additional Health Concerns Assessment Noted Time PHQ-9 Depression Total Score: 17 023 11:11 AM EDT documented as of this encounter Care Teams Software Test Automation Engineer Relationship Specialty Start Date End Date Koki Vu MD [address] [place] [address] PCP - General Family Medicine 10/23/20 Addie Pararescue ManagerPower Line Lineman 06/17/24 documented as of this encounter
--- OUTSIDE RECORDS SUMMARY | 2025-02-18 06:18 | XMS_ITS | Clinical Summary ---
Author Organization [facility] Address [address] [place] [address] Care Team Providers Care Glass Mechanic Name Role Phone Unavailable Primary Care Provider [...] to complete this topic , [address] [place] [address]
--- OUTSIDE RECORDS SUMMARY | 2025-02-18 06:18 | XMS_ITS | Encounter Summary ---
Author Organization [employer] Address [address] [address] Care Team Providers Care Roll Setter Name Role Phone Koki Vu MD Primary Care Provider [phone] Reason for Referral * Consultation (Routine) - Closed Specialty Diagnoses / Procedures Referred By Contac t Referred To Contact Rheumatology Diagnoses Erosion of bone Tirso Mayfield MD [address] [place] [address] Phone: tel: fax: [facility] [address] [place] [address] Phone: tel: fax: Referral ID Status Reason Start Date Expiration Date V isits Requested Visits Authorized [id number] Closed Specialty Services Required 08/02/2024 08/02/2025 1 1 Encounter Details Date Type Department Care Team (Late st Contact Info) Description 08/02/2024 Orders Only [facility] MED [facility] PEDS [address] [place] [address] Tirso Mayfield MD [address] [place], [place] [phone] Erosion of bone (Primary Dx) Social History [...] as of this encounter Plan of Treatment Upcoming Encounters Date Type Department Care Team ([facility] st Contact Info) Description 04/04/2025 8:45 AM EDT Office Visit [facility]EDS [address] [place] [address] Koki Vu MD [address] [place] [address] Scheduled Referrals Name Type Priority Associated Diagnoses [...] AM EDT) Rheumatoid Factor <13.0 <15.0 IU/mL [facility] Blood Venous blood specimen / Unknown 08/08/2024 10:40 AM EDT 08/08/2024 1:17 PM EDT Tirso Jara MD LAB BLOOD ORDERABL ES Final Result Performing Organization Address [facility] de Phone Number [facility] [address] [place] [phone] * Cyclic Citrullinated Peptide (CCP) Antibody (IgG) (08/08/2024 10:40 AM EDT) Cyclic Citrullinated Peptide <16 UNITS [facility] Comment:Reference RangeNegat shalom: <20Weak Positive: 20-39Moderate Positive: 40-59Strong Positive: >59THIS TEST WAS PERFORMED AT:[facility] [address] [phone] RECINOS MD Blood Venous blood specimen / Unknown 08/08/2024 10:40 AM EDT 08/08/2024 1:17 PM EDT Tirso Jara MD LAB BLOOD ORDERABL ES Final Result Performing Organization Address [facility] Co de Phone Number [facility] [address] [place] [phone] documented in this encounter Visit Diagnoses Diagnosis Erosion of bone- Primary documented in this encounter Additional Health Concerns Assessment Noted Time PHQ-9 Depression Total Score: 17 07/04/ 023 11:11 AM EDT documented as of this encounter Care Teams Roll Setter Relationship Specialty Start Date End Date Koki Vu MD [address] [place] [phone] PCP - General Family Medicine 10/23/20 Addie Personal Development EducatorMineral Ore Processing Labourer 06/17/24 documented as of this encounter
--- OUTSIDE RECORDS SUMMARY | 2025-02-18 06:18 | XMS_ITS | Encounter Summary ---
Author Organization [employer] Address [address] [facility] [address] [place] [address] Care Team Providers Care Carpenter Mine Name Role Phone Koki Vu MD Primary Care Provider [phone] Encounter Details Date Type Department Care Team (Late st Contact Info) Description 08/23/2023 Abstract [facility] [address] [place] [address] Koki Vu MD [address] [place] [address] Social History Tobacco Use Types Packs/Day Years [...] t he electric, gas, oil or water [employer] threatened to shut off services in your [...] Description 04/04/2025 8:45 AM EDT Office Visit [facility] [address] [place] [address] Koki Vu MD [address] [place] [address] documented as of this encounter Visit Diagnoses Not on filedocumented in this encounter Additional Health Concerns Assessment Noted Time PHQ-9 Depression Total Score: 17 023 11:11 AM EDT documented as of this encounter Care Teams Carpenter Mine Relationship Specialty Start Date End Date Koki Vu MD [address] [place] [address] PCP - General Family Medicine 10/23/20 Addie Director Digital MarketingPhotocopying Equipment Mechanic 06/17/24 documented as of this encounter
--- OUTSIDE RECORDS SUMMARY | 2025-02-18 06:18 | XMS_ITS | Referral Summary ---
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 Psoriatic arthritis [...] Already f w psychiatrist and therapist at [facility] ---advised to continue care and may need eval if meds can be adjusted Immunizations Immunization Administration Dates Next Due Hepatitis A Vaccine, Adult Dosage 08/14/2019 Hepatitis B adult (ENGERIX-B ADULT) vaccine 1 mL IM 08/14/2019 Influenza, Injectable, Quadr ivalent, Contains Preservative 09/06/2018,12/11/2017 Influenza, Injectable, Quadr ivalent, Preservative Free 07/31/2023,07/02/2021,08/26/2020,2018 Pneumococcal Conjugate Vacci ne, 13 Valent 06/07/2019 Pneumococcal conjugate PCV20,polysaccharide [id number] conjugate, adjuvant, PF (Prevnar 20) 02/01/2024 RSV, [...] Plan [place] [id number] Care Teams Dump Motorman Relationship Specialty Start Date End Date Koki Vu [address] [place] [phone] PCP - General 12/26/23
--- OUTSIDE RECORDS SUMMARY | 2025-02-18 06:18 | XMS_ITS | Encounter Summary ---
Author Organization [employer] Address [address] [facility] 7t [place] [address] Care Team Providers Care Magazine Supervisor Name Role Phone Koki Vu MD Primary Care Provider [phone] Reason for Visit * Reason Comments Med Refill Encounter Details Date Type Department Care Team ([facility] st Contact Info) Description 10/25/2023 Refill [facility] MED & PEDS [address] [place], [place] [phone] Koki Vu MD [address] [place] [address] Social History Tobacco Use Types Packs/Day Years [...] Description 04/04/2025 8:45 AM EDT Office Visit [facility] MED & PEDS [address] [place] [address] Koki Vu MD [address] [place] [address] documented as of this encounter Visit Diagnoses Not on filedocumented in this encounter Additional Health Concerns Assessment Noted Time PHQ-9 Depression Total Score: 17 023 11:11 AM EDT documented as of this encounter Care Teams Magazine Supervisor Relationship Specialty Start Date End Date Koki Vu MD [address] [place] [address] PCP - General Family Medicine 10/23/20 Addie Molecular SpectroscopistAcademic Records Specialist 06/17/24 documented as of this encounter
--- OUTSIDE RECORDS SUMMARY | 2025-02-18 06:18 | XMS_ITS | Encounter Summary ---
Author Organization [employer] Address [address] [facility] [address] [address] [place] [address] Care Team Providers Care International Broadcast Music Librarian Name Role Phone Koki Vu MD Primary Care Provider [phone] Encounter Details Date Type Department Care Team (Late st Contact Info) Description 02/05/[address] [facility] [address] [place], [place] [phone] ProviderNasima MD Social History Tobacco Use Types [...] [facility] [address] [place] [address] Koki Vu MD [address] [place] [address] documented as of this encounter Procedures Procedure Name Priority Date/Time Associated Diagnosis Comments HM COLONOSCOPY Routine 04/17/2018 6:07 AM EDT documented in this encounter Results * Hm Colonoscopy (04/17/2018 6:07 AM EDT) Historical Provider HEALTH MAINTENANCE Final Result documented in this encounter Visit Diagnoses Not on filedocumented in this encounter Additional Health Concerns Assessment Noted Time PHQ-9 Depression Total Score: 17 023 11:11 AM EDT documented as of this encounter Care Teams International Broadcast Music Librarian Relationship Specialty Start Date End Date Koki Vu MD [address] [place] [address] PCP - General Family Medicine 10/23/20 Addie Manager FilmIndustrial Relations Specialist 06/17/24 documented as of this encounter
--- OUTSIDE RECORDS SUMMARY | 2025-02-18 06:19 | XMS_ITS | Encounter Summary ---
Author Organization [employer] Address [address] [facility] 7t [place] [address] Care Team Providers Care Surgical Garment Assembler Name Role Phone Koki Vu MD Primary Care Provider [phone] Reason for Visit * Reason Comments Med Refill Encounter Details Date Type Department Care Team ([facility] st Contact Info) Description 10/25/2023 Refill [facility] MED & PEDS [address] [place], [place] [phone] Koki Vu MD [address] [place] [address] Social History Tobacco Use Types Packs/Day Years [...] Description 04/04/2025 8:45 AM EDT Office Visit [facility] MED & PEDS [address] [place] [address] Koki Vu MD [address] [place] [address] documented as of this encounter Visit Diagnoses Not on filedocumented in this encounter Additional Health Concerns Assessment Noted Time PHQ-9 Depression Total Score: 17 023 11:11 AM EDT documented as of this encounter Care Teams Surgical Garment Assembler Relationship Specialty Start Date End Date Koki Vu MD [address] [place] [address] PCP - General Family Medicine 10/23/20 Addie Commercial RooferWet Suit Gluer 06/17/24 documented as of this encounter
--- OUTSIDE RECORDS SUMMARY | 2025-02-18 06:19 | XMS_ITS | Encounter Summary ---
Author Organization [employer] Address [address] [facility] [address] 7[address] [place] [address] Care Team Providers Care Skiving Machine Operator Name Role Phone Koki Vu MD Primary Care Provider [phone] Encounter Details Date Type Department Care Team ([facility] st Contact Info) Description 09/27/2024 Telephone [facility]EDS [address] [place], [place] [phone] Koki Vu MD [address] [place] [address] Social History Tobacco Use Types Packs/Day Years [...] discuss further medical options. Best contact # [phone]. documented in this encounter Plan of Treatment Upcoming Encounters Date Type Department Care Team ([facility] st Contact Info) Description 04/04/2025 8:45 AM EDT Office Visit [facility] P[facility]S [address] [place] [address] Koki Vu MD [address] [place] [address] documented as of this encounter Visit Diagnoses Not on filedocumented in this encounter Additional Health Concerns Assessment Noted Time PHQ-9 Depression Total Score: 17 023 11:11 AM EDT documented as of this encounter Care Teams Skiving Machine Operator Relationship Specialty Start Date End Date oKki Vu MD [address] [place] [id number] PCP - General Family Medicine 10/23/20 Addie Car BlockerPopcorn Vendor 06/17/24 documented as of this encounter
--- OUTSIDE RECORDS SUMMARY | 2025-02-18 06:19 | XMS_ITS | Encounter Summary ---
Author Organization [employer] Address [address] [facility] [address] [place] [address] Care Team Providers Care Manager Filter Name Role Phone Koki Vu MD Primary Care Provider [phone] Encounter Details Date Type Department Care Team ([facility] st Contact Info) Description 02/17/2025 Telephone [facility] MED & PEDS [address] [place], [place] [phone] Koki Vu MD [address] [place] [address] Social History Tobacco Use Types Packs/Day Years [...] encounter Miscellaneous Notes * Telephone Encounter - Marti Werner MA - 02/17/2025 1:44 PM EDT PT IS SCHEDULE FOR OV EXTENDED REQUESTING PE FOR PROGRAM * Telephone Encounter - Koki Vu MD - 02/17/2025 8:11 AM EDT I came across an Adult Foster Care form for [facility] indicating that a yearly physical is required as part of the [facility] program. Could you please check if he is up to datewith his physical? If not, kindly schedule one for him at your earliest convenience. Thank you! documented in this encounter Plan of Treatment Upcoming Encounters Date Type Department Care Team (Late st Contact Info) Description 04/04/2025 8:45 AM EDT Office Visit [facility] MED & PEDS [address] [place] [address] Koki Vu MD [address] [place] [address] documented as of this encounter Visit Diagnoses Not on filedocumented in this encounter Additional Health Concerns Assessment Noted Time PHQ-9 Depression Total Score: 17 023 11:11 AM EDT documented as of this encounter Care Teams Manager Filter Relationship Specialty Start Date End Date Koki Vu MD [address] [place] [address] PCP - General Family Medicine 10/23/20 Addie Event Decorator And DesignerBusiness Systems Analyst 06/17/24 documented as of this encounter
--- OUTSIDE RECORDS SUMMARY | 2025-02-18 06:19 | XMS_ITS | Encounter Summary ---
Author Organization [employer] Address 75 [facility] 7t [place] [address] Care Team Providers Care Intelligence Engineer Name Role Phone Koki Vu MD Primary Care Provider [phone] Reason for Visit * Reason Comments Med Refill Encounter Details Date Type Department Care Team ([facility] st Contact Info) Description 03/28/2024 Refill [facility] MED & PEDS [address] [place], [place] [phone] Koki Vu MD [address] [place] [address] Social History Tobacco Use Types Packs/Day Years [...] 04/04/2025 8:45 AM EDT Office Visit [facility] MED & PEDS [address] [place] [address] Koki Vu MD [address] [place] [address] documented as of this encounter Visit Diagnoses Not on filedocumented in this encounter Additional Health Concerns Assessment Noted Time PHQ-9 Depression Total Score: 17 023 11:11 AM EDT documented as of this encounter Care Teams Intelligence Engineer Relationship Specialty Start Date End Date Koki Vu MD [address] [place] [address] PCP - General Family Medicine 10/23/20 Addie Wastewater Treatment EngineerSupervisor Dials 06/17/24 documented as of this encounter
== END 2025-02-18 06:17 | disposition home or self-care (01) ==
LOC: CF 06:16
PROVIDERS: Visit Provider Anesthesiology
DX: M47.812 Spondylosis without myelopathy or radiculopathy, cervical region (principal)
CPT/HCPCS: 64555; C1778; J2003

== ENCOUNTER 2025-02-18 08:52 | Outpatient (AMB) | payer MEDICAID, SELFPAY ==
[2025-02-18 08:58] VITALS: BP 130/78; PULSE 71; RESP 16; O2SAT 95
--- NOTE | 2025-02-18 08:58 | MHC.OFFVIS ---
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 Floor Coverings Required: No Allergies fremanezumab-vfrm [From [employer] Autoinjector] Allergy (Unknown, Verified 02/18/25 08:59) Rash Medication List - Last Reconciled 02/18/25 by Andreia Meyers LPN albuterol sulfate 90 mcg/actuation (ProAir HFA) 2 puffs inhalation Q6H PRN atogepant (Qulipta) 60 mg PO DAILY 30 days atorvastatin 80 mg PO BEDTIME azelastine 137 mcg (0.137 mL) intranasal BID 30 days bumetanide 1 mg PO DAILY 30 days buspirone 15 mg PO BID celecoxib (Celebrex) 200 mg PO BID PRN cholecalciferol (vitamin D3) 50 mcg PO DAILY diclofenac sodium 1% (Voltaren Arthritis Pain) 2 grams topical QID duloxetine 20 mg PO epinephrine IM DIRECTED esomeprazole magnesium 40 mg PO DAILY etanercept (Enbrel SureClick) 50 mg subcut QWEEK fluticasone propion-salmeterol 250-50 mcg/dose (Advair Diskus) 1 ea PO BID fluticasone propionate 50 mcg/actuation 1 spray intranasal DAILY levothyroxine 88 mcg PO DAILY lidocaine 5% 1 patch topical DAILY loratadine 10 mg PO DAILY magnesium oxide 400 mg PO DAILY 90 days methocarbamol 500 mg PO BEDTIME 90 days nortriptyline 10 mg PO BEDTIME polyethylene glycol 3350 (ClearLax) 17 grams PO BID pregabalin 225 mg PO BID riboflavin (vitamin B2) 400 mg PO DAILY 90 days sucralfate 10 mL PO BID sumatriptan succinate 50 - 100 mg orally at onset of headache, may repeat in 2 hrs PRN; max 2 tabs per day or 4 tabs/week (may take with Tylenol) 30 days triamcinolone acetonide 0.1% appl topical DAILY PFSH 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 Venous congestion Pain in right lower leg Lipoma of scalp Kidney cysts Spondylosis of thoracic spine Spondylosis of lumbar spine Schatzki's ring Fatty liver HTN (hypertension) Pre-diabetes Dysphagia Asthma Hx of chest pain DAYNA on CPAP Hypothyroid Psoriasis Psoriatic arthritis Chronic pain Mood disorder Depression Avascular necrosis Chronic pain syndrome Spondylosis of lumbar region without myelopathy or radiculopathy Spondylosis, cervical Degeneration, intervertebral disc, cervical Surgical History History of back surgery History of surgery Status post excision of lipoma (~10/21/21) Status post cardiac catheterization Hx of cardiac cath H/O neck surgery Hx of hand surgery Hx of endoscopy History of colonoscopy Family History Father Cirrhosis Alcoholism Mother Diabetes HTN (hypertension) Parkinson disease Brother Cirrhosis Alcoholism Social History Household Members: Spouse and Children Are you a primary care attendant to a significant other at home: No Do you presently have visiting nurse or other home services: No Alcohol intake: never Patient Tobacco Use Status: Former Tobacco user Tobacco use type: Cigarette Second Hand Smoke Exposure: No Current occupational status: disabled Current occupation: rt handed Physical Exam Vital Signs: Last Vital Signs Pulse 71 02/18/25 09:28 Resp 16 02/18/25 09:28 BP 148/78 H 02/18/25 09:28 Pulse Ox 95 02/18/25 09:28 Oxygen Delivery Method Room Air 02/18/25 09:28 Assessment & Plan Assessment & Plan (1) Spondylosis of cervical region without myelopathy or radiculopathy: Code(s): M47.812 - Spondylosis without myelopathy or radiculopathy, cervical region Category: Medical Plan SPRINT C3 left PNS. Percutaneous implantation of peripheral nerve stimulation Sprint system. After the risks, benefits and alternatives were discussed with the patient and informed consent was obtained, patient was placed in the prone position and padded to foster comfort. Time out was performed delineating correct site and side of the procedure , name and of the patient, patient participated in time out procedure. Entire posterior neck, occipital portion of the head, upper back were prepped with ChloraPrep and draped with sterile utility towels. C-arm was brought over the operating field and clear picture of the C3 lamina on the left was delineated on the screen. The upper central portion of the lamina was chosen as a target of the needle tip insertion . After identifying and marking the intended target, the skin around the planned entry point and the subcutaneous tissues were injected with local anesthetic forming skin wheal.. A percutaneous sleeve and stimulating probe lead introduction system were assembled, inserted and advanced through the skin wheal to the point of interest under C-arm view in tunnel vision fashion, the introducer needle was delivered to a location in proximity to the nerve. Multiple stimulation parameters were used to deliver stimulation to the nerve in concert with stimulating at multiple positions around the nerve. nerve target acquisition was confirmed noting generation of in the corresponding to the nerve being stimulated. Various electrical parameter combinations were tested, and the lead location was adjusted (physically relocated) until the patient indicated overlapping the distribution of the patient?s typical region of pain. The stimulating probe was removed from the introducer and a percutaneous lead was guided through the needle and delivered to a location in similar proximity to the nerve. Final location was verified with electrical stimulation. The introducer needle was removed, and the exposed end of the percutaneous lead was attached to an external stimulator unit. At the end of the case various electrical parameter combinations were again tested until the patient indicated paresthesia or muscle tension overlapping the distribution of the patient?s typical region of pain. After confirming that lead impedance was in the normal range, the external unit was detached, the needle was removed, and the lead was anchored at the skin. The lead was threaded into the connector block and electrical continuity and desired patient response was confirmed. The connector block was attached to the external stimulator unit. The site was covered with a sterile occlusive dressing and a image was taken to document final placement. Orders: Orders FL guidance in treatment room Today M47.812 - Spondylosis without myelopathy or radiculopathy, cervical region AMB Sprint PNS Today M47.812 - Spondylosis without myelopathy or radiculopathy, cervical region Medications: New lidocaine HCl 5 mL subcut ONCE 5 mL 0RF M47.812 - Spondylosis without myelopathy or radiculopathy, cervical region Coding Level of Care Code Procedure Only Diagnoses Spondylosis of cervical region without myelopathy or radiculopathy M47.812 Implantable Device Implantable Device Implantable Devices Qty Nurse Wound Implant Date Expiration Date Analgesic PENS system 1 SPR [employer] 02/04/25 Analgesic PENS system 1 [employer] 02/18/25 08/05/26 Analgesic spinal cord electrical stimulation system 1 Pin[employer]ATION [employer] 07/08/22 03/02/23 Analgesic spinal cord electrical stimulation system 1 [employer]era NEUROMOD[employer] 07/08/22 02/29/24 Analgesic spinal cord electrical stimulation system 1 [employer] NEUROMOD[employer]ATION [employer] 07/08/22 05/25/24
--- OUTSIDE RECORDS SUMMARY | 2025-02-18 09:16 | XMS_ITS | Clinical Summary ---
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 Psoriatic [...] Already f w psychiatrist and therapist at [facility] ---advised to continue care and may need eval if meds can be adjusted Immunizations Immunization Administration Dates Next Due Hepatitis A Vaccine, Adult Dosage 08/14/2019 Hepatitis B adult (ENGERIX-B ADULT) vaccine 1 mL IM 08/14/2019 Influenza, Injectable, Quadr ivalent, Contains Preservative 09/06/2018,12/11/2017 Influenza, Injectable, Quadr ivalent, Preservative Free 07/31/2023,07/02/2021,08/26/2020,2018 Pneumococcal Conjugate Vacci ne, 13 Valent 06/07/2019 Pneumococcal conjugate PCV20,polysaccharide [id number] conjugate, adjuvant, PF (Prevnar 20) 02/01/2024 RSV, [...] 06/24/2024, , 07/02/2021, Additional history exists Insurance [employer] Care Teams Security Operations Analyst Relationship Specialty Start Date End Date Koki Vu [address] [place] [id number] PCP - General 12/26/23
--- OUTSIDE RECORDS SUMMARY | 2025-02-18 09:16 | XMS_ITS | Encounter Summary ---
Author Organization [employer] Address 75 [facility] 7t [place] [address] Care Team Providers Care Gate Services Supervisor Name Role Phone Koki Vu MD Primary Care Provider [phone] Reason for Visit * Reason Onset Date Comments Durable Medical Equipment 02/07/2024 Encounter Details Date Type Department Care Team ([facility] st Contact Info) Description 02/07/2024 Telephone [facility] MED & PEDS [address] [place] [address] Koki Vu MD [address] [place] [address] Durable Medical Equipment Social History Tobacco Use [...] Description 04/04/2025 8:45 AM EDT Office Visit [facility] MED & PEDS [address] [place] [address] Koki Vu MD [address] [place] [address] documented as of this encounter Visit Diagnoses Not on filedocumented in this encounter Additional Health Concerns Assessment Noted Time PHQ-9 Depression Total Score: 17 023 11:11 AM EDT documented as of this encounter Care Teams Gate Services Supervisor Relationship Specialty Start Date End Date Koki Vu MD [address] [place] [address] PCP - General Family Medicine 10/23/20 Addie Healthcare Account ManagerFlavoring Machine Operator 06/17/24 documented as of this encounter
--- OUTSIDE RECORDS SUMMARY | 2025-02-18 09:16 | XMS_ITS | Encounter Summary ---
Author Organization [employer] Address [address] [facility] 7t [place] [address] Care Team Providers Care Annealing Torch Operator Name Role Phone Koki Vu MD Primary Care Provider [phone] Reason for Visit * Reason Comments Med Refill Encounter Details Date Type Department Care Team ([facility] st Contact Info) Description 10/25/2023 Refill [facility] MED & PEDS [address] [place], [place] [phone] Koki Vu MD [address] [place] [address] Social History Tobacco Use Types Packs/Day Years [...] Description 04/04/2025 8:45 AM EDT Office Visit [facility] MED & PEDS [address] [place] [address] Koki Vu MD [address] [place] [address] documented as of this encounter Visit Diagnoses Not on filedocumented in this encounter Additional Health Concerns Assessment Noted Time PHQ-9 Depression Total Score: 17 023 11:11 AM EDT documented as of this encounter Care Teams Annealing Torch Operator Relationship Specialty Start Date End Date Koki Vu MD [address] [place] [address] PCP - General Family Medicine 10/23/20 Addie Glass DesignerFitting Room Associate 06/17/24 documented as of this encounter
--- OUTSIDE RECORDS SUMMARY | 2025-02-18 09:16 | XMS_ITS | Encounter Summary ---
Author Organization [employer] Address 75 [facility] 7t [place] [address] Care Team Providers Care Network Professional Name Role Phone Koki Vu MD Primary Care Provider [phone] Reason for Visit * Reason Comments Med Refill Encounter Details Date Type Department Care Team ([facility] st Contact Info) Description 03/28/2024 Refill [facility] MED & PEDS [address] [place], [place] [phone] oKki Vu MD [address] [place] [address] Social History Tobacco Use Types Packs/Day Years [...] Description 04/04/2025 8:45 AM EDT Office Visit [facility] MED & PEDS [address] [place] [address] Koki Vu MD [address] [place] [address] documented as of this encounter Visit Diagnoses Not on filedocumented in this encounter Additional Health Concerns Assessment Noted Time PHQ-9 Depression Total Score: 17 023 11:11 AM EDT documented as of this encounter Care Teams Network Professional Relationship Specialty Start Date End Date Koki Vu MD [address] [place] [address] PCP - General Family Medicine 10/23/20 Addie Manager Data WarehouseMajor Donor Coordinator 06/17/24 documented as of this encounter
--- OUTSIDE RECORDS SUMMARY | 2025-02-18 09:16 | XMS_ITS | Referral Summary ---
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 Psoriatic [...] Already f w psychiatrist and therapist at [facility] ---advised to continue care and may need eval if meds can be adjusted Immunizations Immunization Administration Dates Next Due Hepatitis A Vaccine, Adult Dosage 08/14/2019 Hepatitis B adult (ENGERIX-B ADULT) vaccine 1 mL IM 08/14/2019 Influenza, Injectable, Quadr ivalent, Contains Preservative 09/06/2018,12/11/2017 Influenza, Injectable, Quadr ivalent, Preservative Free 07/31/2023,07/02/2021,08/26/2020,2018 Pneumococcal Conjugate Vacci ne, 13 Valent 06/07/2019 Pneumococcal conjugate PCV20,polysaccharide [id number] conjugate, adjuvant, PF (Prevnar 20) 02/01/2024 RSV, [...] [id number] Care Teams Gaming Department Head Relationship Specialty Start Date End Date Koki Vu [address] [place] [id number] PCP - General 12/26/23
--- OUTSIDE RECORDS SUMMARY | 2025-02-18 09:16 | XMS_ITS | Clinical Summary ---
Author Organization [facility] Address [address] [place] [address] Care Team Providers Care Immigration Manager Name Role Phone Unavailable Primary Care Provider [...] to complete this topic , [address] [place] [address]
--- OUTSIDE RECORDS SUMMARY | 2025-02-18 09:16 | XMS_ITS | Encounter Summary ---
Author Organization [employer] Address [address] [address] Care Team Providers Care Graphite Pan Drier Tender Name Role Phone Koki Vu MD Primary Care Provider Reason for Referral * Consultation (Routine) - Closed Specialty Diagnoses / Procedures Referred By Contac t Referred To Contact Rheumatology Diagnoses Erosion of bone Tirso Mayfield MD [address] [place] [address] Phone: tel: fax: [facility] [address] [place] [address] Phone: tel: fax: Referral ID Status Reason Start Date Expiration Date V isits Requested Visits Authorized [id number] Closed Specialty Services Required 08/02/2024 08/02/2025 1 1 Encounter Details Date Type Department Care Team (Late st Contact Info) Description 08/02/2024 Orders Only [facility] MED & PEDS [address] [place] [address] Tirso Mayfield MD [address] [place], [place] [phone] Erosion of bone (Primary Dx) Social History [...] Upcoming Encounters Date Type Department Care Team ([facility] st Contact Info) Description 04/04/2025 8:45 AM EDT Office Visit [facility] MED & PEDS [address] [place] [address] Koki Vu MD [address] [place] [address] Scheduled Referrals Name Type Priority Associated Diagnoses [...] AM EDT) Rheumatoid Factor <13.0 <15.0 IU/mL [facility] Blood Venous blood specimen / Unknown 08/08/2024 10:40 AM EDT 08/08/2024 1:17 PM EDT Tirso Jara MD LAB BLOOD ORDERABL ES Final Result Performing Organization Address [facility] de Phone Number [facility] [address] [place] [phone] * Cyclic Citrullinated Peptide (CCP) Antibody (IgG) (08/08/2024 10:40 AM EDT) Cyclic Citrullinated Peptide <16 UNITS [facility] Comment:Reference RangeNegat shalom: <20Weak Positive: 20-39Moderate Positive: 40-59Strong Positive: >59THIS TEST WAS PERFORMED AT:[facility] [employer] [address] [phone] RECINOS MD Blood Venous blood specimen / Unknown 08/08/2024 10:40 AM EDT 08/08/2024 1:17 PM EDT Tirso Jara MD LAB BLOOD ORDERABL ES Final Result Performing Organization Address [facility] Co de Phone Number [facility] [address] [place] [phone] documented in this encounter Visit Diagnoses Diagnosis Erosion of bone- Primary documented in this encounter Additional Health Concerns Assessment Noted Time PHQ-9 Depression Total Score: 17 07/04/ 023 11:11 AM EDT documented as of this encounter Care Teams Graphite Pan Drier Tender Relationship Specialty Start Date End Date Koki Vu MD [address] [place] [phone] PCP - General Family Medicine 10/23/20 Addie Gypsum RooferManager Furniture 06/17/24 documented as of this encounter
--- OUTSIDE RECORDS SUMMARY | 2025-02-18 09:16 | XMS_ITS | Clinical Summary ---
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 Assessment & [...] Already f w psychiatrist and therapist at [facility] ---advised to continue care and may need eval if meds can be adjusted Chronic low back pain 12/11/2017 Assessment & Plan (06/13/2023 1:43 PM EDT): Not responsive to opiate medications. At this point will send a trial of Lyrica. Will need to proceed with PA for this. Encounters Date Type Department Care Team Description 02/17/2025 Telephone [facility] [address] [place] [address] Koki Vu MD 01/30/2025 Refill [facility] [address] [place] [address] Koki Vu MD Hyperlipidemia, unspecified hyperlipidemia type 01/14/2025 8:30 AM EDT Office Visit [facility] [address] [place] [address] Josee Collazo MD Acquired hypothyroidism (Primary Dx); Prediabetes 01/14/2025 Travel 01/06/2025 Patient Outreach [facility] MEDICINE [address] [place] [phone] Koki Vu MD Pre-visit Planning (SDOH screening positive and Tobacco screening negative) 01/01/2025 Telephone [facility] MEDICINE [address] [place] [address] Koki Vu MD Referral 12/20/2024 Population Health Risk Score [facility] ([facility]) Department [address] [place] [phone] Provider, Population Health Generic 12/01/2024 Refill [facility] [address] [place] [address] Koki Vu MD 11/29/2024 Orders Only GENERIC EXTERNAL DATA DEPARTMENT Provider, Generic External Data 11/28/2024 9:40 AM EST Office Visit [facility] [address] [place] [address] Starr Escobar MD Atopic dermatitis in adult (Primary Dx); Chronic migraine without aura without status migrainosus, not intractable 11/22/2024 8:30 AM EST Office Visit [facility] [address] [place] [address] Tirso Mayfield MD Psoriatic arthritis ([facility]) (Primary Dx) 11/22/2024 Travel from Last 3 [...] Description 04/04/2025 8:45 AM EDT Office Visit [facility] & PEDS [address] [place] [address] Koki Vu MD [address] [place] [address] Health Maintenance Due Date Last Done Comments [...] AM EDT) Hemoglobin A1c 6.0 <6.0 % [facility] Comment:Hemoglobin A1C Refer ence Range Adults: 4.8 - 6.0 % Non diabetic: < 6.0 % Goal: < 7.0 %Additional Action Suggested: > 8.0 %Note: Hemoglobin A1c results are invalid for patients with abnormal amounts of HbF. Blood transfusions may impact the HbA1c concentration in the patient sample. Estimated Average Glucose 126 mg/dL [facility] Comment:eAG = Estimated ave rage glucose which is %A1C expressed asaverage glucose, using the formula of the [id number] Glucose study (ADAG), Diabetes Care, Vol.31,#8,May. 2007 Blood Venous blood specimen / Unknown 01/14/2025 9:27 AM EDT 01/14/2025 2:06 PM EDT Josee Collazo MD LAB BLOOD ORDERABLES Final Resul t Performing Organization Address City/[facility]/ZIP Co de Phone Number [facility] [address] [place] [phone] * TSH with Reflex to Free T4 (01/14/2025 9:22 AM EDT) TSH reflex Free T4 0.88 0.32 - 4.0 uIU/mL [facility] Blood Venous blood specimen / Unknown 01/14/2025 9:22 AM EDT 01/14/2025 2:06 PM EDT us Josee Collazo MD LAB BLOOD ORDERABLES Final Resul t Performing Organization Address City/[facility]/ZIP Co de Phone Number [facility] [address] [place] [phone] * Hepatic Function Panel (01/14/2025 9:22 AM EDT) Bilirubin, Total 0.3 0.0 - 1.0 mg/dL [facility] Bilirubin, Direct 0.1 0.0 - 0.5 mg/dL [facility] Aspartate Amino Transferase 35 5 - 37 U/L [facility] Alanine Aminotransferase 35 0 - 40 U/L [facility] Total Protein 6.8 6.5 - 8.0 g/dL [facility] Albumin Level 4.1 3.5 - 5.0 g/dL [facility] Alkaline Phosphatase 85 39 - 117 U/L [facility] Blood Venous blood specimen / Unknown 01/14/2025 9:22 AM EDT 01/14/2025 2:06 PM EDT us Josee Collazo MD LAB BLOOD ORDERABLES Final Resul t [facility] [address] [place] [address] [phone] * (ABNORMAL) Lipid Panel, Standard (01/14/2025 9:22 AM EDT) Pathologist [facility] Triglycerides 86 <150 mg/dL [facility] Comment:Desirable Triglyceri de: less than 150 mg/dLBorderline High Triglyceride 150-199 mg/dLHigh Triglyceride: 200-499 mg/dLVery High Triglyceride: greater than or equal to 5OO mg/dL Cholesterol 193 <200 mg/dL [facility] Comment:Desirable Cholestero l: less than 200 mg/dLBorderline High Cholesterol: 200-239 mg/dLHigh Cholesterol: greater than 239 mg/dL LDL Cholesterol Calculated 134(H) <100 mg/dL [facility] Comment:Desirable LDL: less than 100 mg/dLNear Optimal/Above Optimal LDL: 110- 129 mg/dLBorderline High LDL: 130-159 mg/dLHigh LDL: 160-189 mg/dLVery High LDL: greater than or equal to 190 mg/dL HDL Cholesterol 42 >40 mg/dL [facility] Comment:Desirable HDL: great er than 40 mg/dL Note: This HDL assay may give artificially low results in patients with liver disease. Blood Venous blood specimen / Unknown 01/14/2025 9:22 AM EDT 01/14/2025 2:06 PM EDT Josee Collazo MD LAB BLOOD ORDERABLES Final Resul t Performing Organization Address [facility] Co de Phone Number [facility] [address] [place] [phone] * (ABNORMAL) Basic Metabolic Panel (01/14/2025 9:22 AM EDT) Sodium 142 135 - 145 mmol/L [facility] Potassium 4.1 3.3 - 5.1 mmol/L [facility] Chloride 110(H) 96 - 108 mmol/L [facility] Carbon Dioxide 26 22 - 29 mmol/L [facility] Anion Gap 10(L) 12 - 20 [facility] Urea Nitrogen (BUN) 15 9 - 16 mg/dL [facility] Creatinine, Serum 1.04 0.5 - 1.4 mg/dL [facility] Estimated Glomerular Filt Rate >60 [facility] Comment:Chronic Kidney Disea se: Estimated GFR < 60 mL/min/1.83u9Nsfauj Kidney Disease: Estimated GFR < 15 mL/min/1.73m2 Glucose 90 60 - 115 mg/dL [facility] Calcium 9.1 8.4 - 10.2 mg/dL [facility] Blood Venous blood specimen / Unknown 01/14/2025 9:22 AM EDT 01/14/2025 2:06 PM EDT Josee Collazo MD LAB BLOOD ORDERABLES Final Resul t Performing Organization Address [facility]/ZIP Co de Phone Number [facility] [address] [place] [phone] * Rast Allergen (11/29/2024 11:57 AM EST) Pathologist [facility] Rast Allergen SEE NOTE [facility] Comment:SEE SCANNED RESULTS IN EMR 11/29/2024 11:5 7 AM EST 11/29/2024 11:57 AM EST Generic External Data Provider HISTORICAL/NON OR DERABLE LABS Final Result Performing Organization Address [facility] Co de Phone Number [facility] [address] [place] [phone] [phone] * Hepatitis Panel, General (08/13/2024 11:49 AM EST) [facility] Hepatitis A IgM Nonreactive Nonreactive [facility] [...] ORDERAB LES Final Result Performing Organization Address [facility] Co de Phone Number [facility] [address] [place] [address] [phone] * Cologuard?? colon cancer screening (08/10/2023 3:59 PM EDT) [facility] Cologuard Result Negative Negative 08/17/20 9:57 AM EST [facility] (CLIA #:[id number]) Comment: NEGATIVE TEST RESULT. A negative Cologuard [...] cancer. ??Following a negative Cologuard result, the [place] [employer] Society and U.S. Multi-Society Task Force screening guidelines recommend a Cologuard re-screening interval of 3 years. References: [place] [employer] Guideline for Colorectal Cancer Screening: https://www.cancer.org/cancer/ksdoy-oiqkaj-azbnig/eyahjivih-ufzqvwcys-drcowso/ac s-rec ommendations.html.; Delroy MULLIGAN, Rere OTERO, Guy RochaK, Colorectal Cancer Screening: Recommendations for Physicians and Patients from the U.S. Multi-Society Task Force on Colorectal Cancer Screening , Am J Gastroenterology 2017; 112:9206-1557. TEST DESCRIPTION: Composite algorithmic analysis of stool [...] (Harris Albarran al, N Engl J Med 2014;370(14):2442-6893.) Cologuard may produce a false negative or false positive result (no colorectal cancer or precancerous polyp present at colonoscopy follow up). A negative Cologuard test result does not guarantee the absence of CRC or advanced adenoma (pre-cancer). The current Cologuard screening interval is every 3 years. ([place] [employer] and U.S. Multi-Society Task Force). Cologuard performance data in a 10,000 patient pivotal study using colonoscopy as the reference method can be accessed at the following location: www.[employer]/results. Additional description of the Cologuard test process, warnings and precautions can be found at www.[employer] CompanyogdynaTrace softwarerd.[employer] 360. Stool specimen (specimen) 08/10/2023 3:59 PM EDT 08/11/2023 6:19 PM EDT Koki Vu MD LAB MOLECULAR DIAGNOSTICS ORD ERABLES Final Result [facility] (CLIA #:[id number]) [place] [address], * Colonoscopy (04/17/2018 6:07 AM EDT) Historical Provider HEALTH MAINTENANCE Final Result from Last 3 Months or Most Recently Relevant to Health Maintenance Insurance Care Teams Crawler Tractor Operator Relationship Specialty Start Date End Date Koki Vu MD [address] [place] [phone] PCP - General Family Medicine 10/23/20 Addie Switch InspectorExecutive Officer 06/17/24
--- OUTSIDE RECORDS SUMMARY | 2025-02-18 09:16 | XMS_ITS | Clinical Summary ---
Author Organization [facility] Address [address] [place] [address] Care Team Providers Care Gypsum Roofer Name Role Phone Jessica Rogers MD Primary Care Provider [phone] Social History Tobacco Use Types Packs/Day Years [...] age to complete this topic Care Teams Gypsum Roofer Relationship Specialty Start Date End Date Jessica Rogers MD [address] [place] [address] [phone] PCP - General General Surgery 09/22/21
--- OUTSIDE RECORDS SUMMARY | 2025-02-18 09:16 | XMS_ITS | Encounter Summary ---
Author Organization [employer] Address [address] [facility] 7t [place] [address] Care Team Providers Care Measurement Analyst Name Role Phone Koki Vu MD Primary Care Provider [phone] Reason for Visit * Reason Comments Med Refill Encounter Details Date Type Department Care Team ([facility] st Contact Info) Description 10/25/2023 Refill [facility] PEDS [address] [place], [place] [phone] Koki Vu MD [address] [place] [address] Social History Tobacco Use Types Packs/Day Years [...] Description 04/04/2025 8:45 AM EDT Office Visit [facility]EDS [address] [place] [address] Koki Vu MD [address] [place] [address] documented as of this encounter Visit Diagnoses Not on filedocumented in this encounter Additional Health Concerns Assessment Noted Time PHQ-9 Depression Total Score: 17 023 11:11 AM EDT documented as of this encounter Care Teams Measurement Analyst Relationship Specialty Start Date End Date Koki Vu MD [address] [place] [address] PCP - General Family Medicine 10/23/20 Addie Health NavigatorCredit Card Control Clerk 06/17/24 documented as of this encounter
--- OUTSIDE RECORDS SUMMARY | 2025-02-18 09:16 | XMS_ITS | Encounter Summary ---
Author Organization [employer] Address [address] [facility] [address] [address] [place] [address] Care Team Providers Care Blockers Skiver Name Role Phone Koki Vu MD Primary Care Provider [phone] Encounter Details Date Type Department Care Team ([facility] st Contact Info) Description 09/27/2024 Telephone [facility] PEDS [address] [place], [place] [phone] Koki Vu MD [address] [place] [address] Social History Tobacco Use Types Packs/Day Years [...] EST TC from [place] DO with [facility] pulmonology requesting a call back from pcp to discuss further medical options. Best contact # [phone]. documented in this encounter Plan of Treatment Upcoming Encounters Date Type Department Care Team ([facility] st Contact Info) Description 04/04/2025 8:45 AM EDT Office Visit [facility]S [address] [place] [address] Koki Vu MD [address] [place] [address] documented as of this encounter Visit Diagnoses Not on filedocumented in this encounter Additional Health Concerns Assessment Noted Time PHQ-9 Depression Total Score: 17 023 11:11 AM EDT documented as of this encounter Care Teams Blockers Skiver Relationship Specialty Start Date End Date Koki Vu MD [address] [place] [phone] PCP - General Family Medicine 10/23/20 Addie Sewage Plant SupervisorPower Plant Engineer 06/17/24 documented as of this encounter
--- OUTSIDE RECORDS SUMMARY | 2025-02-18 09:16 | XMS_ITS | Encounter Summary ---
Author Organization [employer] Address [address] [facility] [address] [place] [address] Care Team Providers Care Destination Imagination Coordinator Name Role Phone Koki Vu MD Primary Care Provider [phone] Encounter Details Date Type Department Care Team (Late st Contact Info) Description 02/05/2024 Orders Only [facility] MED[facility] [address] [place], [place] [phone] ProviderNasima MD Social History Tobacco Use Types [...] 04/04/2025 8:45 AM EDT Office Visit [facility] [address] [place] [address] Koki Vu MD [address] [place] [address] documented as of this encounter Procedures Procedure [...] documented as of this encounter Care Teams Destination Imagination Coordinator Relationship Specialty Start Date End Date Koki Vu MD [address] [place] [address] PCP - General Family Medicine 10/23/20 Addie Mannequin MolderBicycle Repairman 06/17/24 documented as of this encounter
--- OUTSIDE RECORDS SUMMARY | 2025-02-18 09:16 | XMS_ITS | Encounter Summary ---
Author Organization [employer] Address [address] [facility] [address] [address] [place] [address] Care Team Providers Care Design Supervisor Name Role Phone Koki Vu MD Primary Care Provider [phone] Encounter Details Date Type Department Care Team (Late st Contact Info) Description 08/23/2023 Abstract [facility] MEDICINE [address] [place] [address] Koki Vu MD [address] [place] [address] Social History Tobacco Use Types Packs/Day Years [...] t he electric, gas, oil or water [employer] threatened to shut off services in your [...] Description 04/04/2025 8:45 AM EDT Office Visit [facility] PEDS [address] [place] [address] Koki Vu MD [address] [place] [address] documented as of this encounter Visit Diagnoses Not on filedocumented in this encounter Additional Health Concerns Assessment Noted Time PHQ-9 Depression Total Score: 17 023 11:11 AM EDT documented as of this encounter Care Teams Design Supervisor Relationship Specialty Start Date End Date Koki Vu MD [address] [place] [address] PCP - General Family Medicine 10/23/20 Addie Judicial ReporterDocumentation Specialist 06/17/24 documented as of this encounter
--- OUTSIDE RECORDS SUMMARY | 2025-02-18 09:16 | XMS_ITS | Encounter Summary ---
Author Organization [employer] Address [address] [facility] [facility] [address] [place] [address] Care Team Providers Care Inverform Machine Operator Name Role Phone Koki Vu MD Primary Care Provider [phone] Encounter Details Date Type Department Care Team ([facility] st Contact Info) Description 02/17/2025 Telephone [facility] MED & PEDS [address] [place], [place] [phone] Koki Vu MD [address] [place] [address] Social History Tobacco Use Types Packs/Day Years [...] across an Adult Foster Care form for [facility] indicating that a yearly physical is required as part of the [facility] program. Could you please check if he is up to datewith his physical? If not, kindly schedule one for him at your earliest convenience. Thank you! documented in this encounter Plan of Treatment Upcoming Encounters Date Type Department Care Team (Late st Contact Info) Description 04/04/2025 8:45 AM EDT Office Visit [facility] [address] [place] [address] Koki Vu MD [address] [place] [address] documented as of this encounter Visit Diagnoses Not on filedocumented in this encounter Additional Health Concerns Assessment Noted Time PHQ-9 Depression Total Score: 17 023 11:11 AM EDT documented as of this encounter Care Teams Inverform Machine Operator Relationship Specialty Start Date End Date Koki Vu MD [address] [place] [address] PCP - General Family Medicine 10/23/20 Addie Lip And Gate BuilderGrails Web Application Developer 06/17/24 documented as of this encounter
[2025-02-18 09:28] VITALS: BP 148/78; PULSE 71; RESP 16; O2SAT 95
== END 2025-02-18 09:37 | disposition home or self-care (01) ==
LOC: HO.PMCPRC 08:52
PROVIDERS: PCP Family Medicine; Visit Provider Anesthesiology
DX: M47.812 Spondylosis without myelopathy or radiculopathy, cervical region (principal)
CPT/HCPCS: 64555

== ENCOUNTER 2025-02-26 09:14 | Outpatient (AMB) | payer MEDICAID, SELFPAY ==
--- NOTE | 2025-02-26 09:46 | MHC.OFFVIS ---
Vital Signs 02/26/25 09:48 Height 5 ft 3 in Weight 177 lb BMI 31.4 BP 136/81 Blood Pressure Location Lt brachial Position Sitting Respiration 16 Pulse 83 Pulse Source Pulse Oximeter Pulse Oximetry (%) 93 Oxygen Delivery Method Room Air Intake Visit Reasons: LEFT C3 SPRINT PNS TRIAL Family Court Justice Required: No Family Court Justice Services: Family Court Justice Offered & Declined Allergies [id number] [From Air Button Autoinjector] Allergy (Unknown, Verified 02/26/25 09:48) Rash Medication List - Last Reconciled 02/26/25 by Andreia Meyers LPN albuterol sulfate 90 mcg/actuation (ProAir HFA) 2 puffs inhalation Q6H PRN atogepant (Qulipta) 60 mg PO DAILY 30 days atorvastatin 80 mg PO BEDTIME azelastine 137 mcg (0.137 mL) intranasal BID 30 days bumetanide 1 mg PO DAILY 30 days buspirone 15 mg PO BID celecoxib (Celebrex) 200 mg PO BID PRN cholecalciferol (vitamin D3) 50 mcg PO DAILY diclofenac sodium 1% (Voltaren Arthritis Pain) 2 grams topical QID duloxetine 20 mg PO epinephrine IM DIRECTED esomeprazole magnesium 40 mg PO DAILY etanercept (Enbrel SureClick) 50 mg subcut QWEEK fluticasone propion-salmeterol 250-50 mcg/dose (Advair Diskus) 1 ea PO BID fluticasone propionate 50 mcg/actuation 1 spray intranasal DAILY levothyroxine 88 mcg PO DAILY lidocaine 5% 1 patch topical DAILY loratadine 10 mg PO DAILY magnesium oxide 400 mg PO DAILY 90 days methocarbamol 500 mg PO BEDTIME 90 days nortriptyline 10 mg PO BEDTIME polyethylene glycol 3350 (ClearLax) 17 grams PO BID pregabalin 225 mg PO BID riboflavin (vitamin B2) 400 mg PO DAILY 90 days sucralfate 10 mL PO BID sumatriptan succinate 50 - 100 mg orally at onset of headache, may repeat in 2 hrs PRN; max 2 tabs per day or 4 tabs/week (may take with Tylenol) 30 days triamcinolone acetonide 0.1% appl topical DAILY HPI Comments Details: The patient is a 59-year-old male presenting for follow-up one-week status post left C3 sprint PNS placement. He now has bilateral cervical Sprint in place. The primary concern is persistent pain localized on the left side with minor relief observed on the right side after recent procedures. Overall pain remains unchanged since the last visit. There is left-sided neck discomfort reported with no improvement. The patient has not noted any modification or improvement in the left-side pain post the previous intervention, while a light improvement is seen on the right side. The patient mentions sensitivity to the adjustments of the stimulator setting, noting enhanced pain if increased too much. Currently, devices inject stimulation at a setting of 55 bilaterally. - Onset and Timing: Chronic, since recent procedures, no specific initial onset date. - Quality and Character: Persistent and uncomfortable, worsened by adjustments in stimulation. - Primary Location: Left-sided neck pain. - Areas of Radiation: None mentioned. - Exacerbating Factors: Increased stimulation settings, particularly on the left side. - Relieving Factors: Adjusting stimulations to maintain comfort, possibly a lengthy wait for noticeable improvement. - Interference: Impacts daily comfort due to persistent intensity. Activities aggravated by stimulation adjustments. - Affect: Patient's mood and psychological impact not directly discussed. - Analgesia: Right-side stimulation set at 55, left side 55; intermediate goals for pain improvement acknowledged. - Adverse Effects: Increased discomfort on the left side with higher stimulation settings. - Activities of Daily Living: Persistent pain affects daily routines, particularly left-sided discomfort. - Aberrant Drug Related Behaviors: No indications of misuse or other behaviors discussed. 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 Venous congestion Pain in right lower leg Lipoma of scalp Kidney cysts Spondylosis of thoracic spine Spondylosis of lumbar spine Schatzki's ring Fatty liver HTN (hypertension) Pre-diabetes Dysphagia Asthma Hx of chest pain DAYNA on CPAP Hypothyroid Psoriasis Psoriatic arthritis Chronic pain Mood disorder Depression Avascular necrosis Chronic pain syndrome Spondylosis of lumbar region without myelopathy or radiculopathy Spondylosis, cervical Degeneration, intervertebral disc, cervical Surgical History History of back surgery History of surgery Status post excision of lipoma (~10/21/21) Status post cardiac catheterization Hx of cardiac cath H/O neck surgery Hx of hand surgery Hx of endoscopy History of colonoscopy Family History Father Cirrhosis Alcoholism Mother Diabetes HTN (hypertension) Parkinson disease Brother Cirrhosis Alcoholism Social History Household Members: Spouse and Children Are you a primary care clinician to a significant other at home: No Do you presently have visiting nurse or other home services: No Alcohol intake: never Patient Tobacco Use Status: Former Tobacco user Tobacco use type: Cigarette Second Hand Smoke Exposure: No Current occupational status: disabled Current occupation: rt handed Review of Systems Const Details: - Musculoskeletal: Reports persistent left-sided neck pain; Denies change in pain status. - Neurological: Denies any improvement in left-sided pain following recent procedures. Physical Exam Vital Signs: Last Vital Signs Pulse 83 02/26/25 09:48 Resp 16 02/26/25 09:48 BP 136/81 02/26/25 09:48 Pulse Ox 93 02/26/25 09:48 Oxygen Delivery Method Room Air 02/26/25 09:48 BMI result Body Mass Index 31.4 General: awake, alert, oriented. Answers questions appropriately. Fully engaged in examination. Skin: warm, dry, intact HEENT: Normocephalic. Hearing intact. Cardiac: External chest normal in appearance. Respiratory: No cough, audible wheezing or stridor. Abdomen: without gross distension. MS: No obvious swelling or deformities. Neurological: Oriented to person, place, time and situation. Thought process intact. No gait abnormalities appreciated. Psychiatric: Appropriate mood and affect. Good judgment and insight. Bilateral Sprint dressing change: Existing dressing removed, Area cleansed with chloraprep. Site dry, clean without redness, swelling, warmth, bruising or drainage. Lead secure devices removed. Area cleansed again with chloraprep, once dry skin barrier protectant wipe applied. New lead secure devices applied, tegaderm applied. Patient tolerated procedure well. Assessment & Plan Assessment & Plan (1) Spondylosis of cervical region without myelopathy or radiculopathy: Code(s): M47.812 - Spondylosis without myelopathy or radiculopathy, cervical region Category: Medical Plan Management involves adjusting the stimulation settings to alleviate the symptoms. Patients are advised to observe comfort levels and ensure no exacerbation of symptoms due to high stimulation. Optimal setting levels should be individually tweaked on each side. Expected time frame for substantial progress is approximately four weeks to elicit improvements. The patient should provide feedback regarding stimulation efficacy and comfort. During the consultation, we revisited the patient's management approach for the chronic neck pain. I highlighted the importance of finding a balance in the stimulation settings that alleviate rather than exacerbate symptoms. For the right side, settings are adjusted to 55, yielding some improvement. The plan involves regular adjustments and careful monitoring of symptoms, with an acknowledgment that full improvement could take several weeks. The potential benefits of this method include enhanced comfort and reduced pain, with constant monitoring to avoid setting parameters that worsen the condition. The patient was briefed on contacting us with any questions or concerns to ensure transparency and accessibility in managing this chronic issue. Patient was informed and verbally consented to the use of an ambient scribe for clinic note documentation during this visit. Scribe Plan - Not visible on output: - Adjust stimulation settings to maintain comfort, avoid high settings causing pain. - Monitor any improvement and provide regular feedback. - Understand that improvement might take up to four weeks. - Call us if there are any questions or if the pain worsens. Coding Level of Care Code Est Pt Level 3 (71930) Complex EM visit Add On G2211 Diagnoses Spondylosis of cervical region without myelopathy or radiculopathy M47.812
[2025-02-26 09:48] VITALS: BP 136/81; PULSE 83; RESP 16; O2SAT 93; BMI 31.4
--- OUTSIDE RECORDS SUMMARY | 2025-02-26 10:31 | XMS_ITS | Clinical Summary ---
Author Organization [facility] ity Address [address] [place] [address] Care Team Providers Care Outside Upholsterer Name Role Phone Jessica Rogers MD Primary Care Provider [phone] Social History Tobacco Use Types Packs/Day Years [...] age to complete this topic Care Teams Outside Upholsterer Relationship Specialty Start Date End Date Jessica Rogers MD [address] [place] [address] [phone] PCP - General General Surgery 09/22/21
--- OUTSIDE RECORDS SUMMARY | 2025-02-26 10:31 | XMS_ITS | Clinical Summary ---
Author Organization [facility] Address [address] [place] [address] Care Team Providers Care Bin Piler Name Role Phone VuKoki Primary Care Provider [phone] Allergies No known active allergies Medications [...] reports he needs new TSH border for trestle builder referal placed in previous appointment. Psoriatic [...] ne, 13 Valent 06/07/2019 Pneumococcal conjugate PCV20,polysaccharide [id number] conjugate, adjuvant, PF (Prevnar 20) 02/01/2024 RSV, [...] 06/24/2024, , 07/02/2021, Additional history exists Insurance [email or web address] Care Teams Bin Piler Relationship Specialty Start Date End Date Koki Vu [address] [place] [phone] PCP - General 12/26/23
--- OUTSIDE RECORDS SUMMARY | 2025-02-26 10:31 | XMS_ITS | Referral Summary ---
Author Organization [facility] Address [address] [place] [address] Care Team Providers Care Band Saw Operator Name Role Phone Vu Koki Primary Care Provider [phone] Allergies No known active allergies Medications [...] reports he needs new TSH border for duck bill operator referal placed in previous appointment. Psoriatic [...] ne, 13 Valent 06/07/2019 Pneumococcal conjugate PCV20,polysaccharide [id number] conjugate, adjuvant, PF (Prevnar 20) 02/01/2024 RSV, [...] [id number] Care Teams Band Saw Operator Relationship Specialty Start Date End Date Koki Vu [address] [place] [phone] PCP - General 12/26/23
--- OUTSIDE RECORDS SUMMARY | 2025-02-26 10:32 | XMS_ITS | Clinical Summary ---
Author Organization [employer] Address [address] [place] [address] [address] [place] [address] Care Team Providers Care Curriculum Specialist Name Role Phone Koki Vu MD Primary Care Provider [phone] Allergies No known active allergies Medications lactulose [...] reports he needs new TSH border for foamite mixer referal placed in previous appointment. Assessment & [...] Already f w psychiatrist and therapist at [facility] ---advised to continue care and may need eval if meds can be adjusted Chronic low back pain 12/11/2017 Assessment & Plan (06/13/2023 1:43 PM EDT): Not responsive to opiate medications. At this point will send a trial of Lyrica. Will need to proceed with PA for this. Encounters Date Type Department Care Team Description 02/17/2025 Telephone [facility] [address] [place] [address] Koki Vu MD 01/30/2025 Refill [facility] [address] [place] [address] Koki Vu MD Hyperlipidemia, unspecified hyperlipidemia type 01/14/2025 8:30 AM EDT Office Visit [facility] [address] [place] [address] Josee Collazo MD Acquired hypothyroidism (Primary Dx); Prediabetes 01/14/2025 Travel 01/06/2025 Patient Outreach [facility] [address] [place] [address] Koki Vu MD Pre-visit Planning (SDOH screening positive and Tobacco screening negative) 01/01/2025 Telephone [facility] [address] [place] [address] Koki Vu MD Referral 12/20/2024 Population Health Risk Score [facility] (C3) Department [address] [place] [phone] Provider, Population Health Generic 12/01/2024 Refill [facility] [address] [place] [address] Koki Vu MD 11/29/2024 Orders Only GENERIC EXTERNAL DATA DEPARTMENT Provider, Generic External Data from Last 3 Months Immunizations Immunization Administration Dates Next Due Hep A, Adult [...] Description 04/04/2025 8:45 AM EDT Office Visit [facility] [address] [place] [address] Koki Vu MD [address] [place] [address] Health Maintenance Due Date Last Done Comments CT Colonography 1963 FIT 1963 FOBT 1963 HIV Screening 1963 Sigmoidoscopy 1963 Disability Screening 1963 Alcohol/Substance Use Screening 1975 Hepatitis A [...] AM EDT) Hemoglobin A1c 6.0 <6.0 % [facility] Comment:Hemoglobin A1C Refer ence Range Adults: 4.8 - 6.0 % Non diabetic: < 6.0 % Goal: < 7.0 %Additional Action Suggested: > 8.0 %Note: Hemoglobin A1c results are invalid for patients with abnormal amounts of HbF. Blood transfusions may impact the HbA1c concentration in the patient sample. Estimated Average Glucose 126 mg/dL [facility] Comment:eAG = Estimated ave rage glucose which is %A1C expressed asaverage glucose, using the formula of the F3Y-IiqktgpFbbnwcj Glucose study (ADAG), Diabetes Care, Vol.31,#8,May. 2007 Blood Venous blood specimen / Unknown 01/14/2025 9:27 AM EDT 01/14/2025 2:06 PM EDT Josee Collazo MD LAB BLOOD ORDERABLES Final Resul t Performing Organization Address [facility] de Phone Number [facility] [address] [place] [phone] * TSH with Reflex to Free T4 (01/14/2025 9:22 AM EDT) TSH reflex Free T4 0.88 0.32 - 4.0 uIU/mL [facility] Blood Venous blood specimen / Unknown 01/14/2025 9:22 AM EDT 01/14/2025 2:06 PM EDT Josee Collazo MD LAB BLOOD ORDERABLES Final Resul t Performing Organization Address [facility] Co de Phone Number [facility] [address] [place] [phone] * Hepatic Function Panel (01/14/2025 9:22 AM EDT) Bilirubin, Total 0.3 0.0 - 1.0 mg/dL [facility] Bilirubin, Direct 0.1 0.0 - 0.5 mg/dL [facility] Aspartate Amino Transferase 35 5 - 37 U/L [facility] Alanine Aminotransferase 35 0 - 40 U/L [facility] Total Protein 6.8 6.5 - 8.0 g/dL [facility] Albumin Level 4.1 3.5 - 5.0 g/dL [facility] Alkaline Phosphatase 85 39 - 117 U/L [facility] Blood Venous blood specimen / Unknown 01/14/2025 9:22 AM EDT 01/14/2025 2:06 PM EDT Josee Collazo MD LAB BLOOD ORDERABLES Final Resul t Performing Organization Address [facility] Co de Phone Number [facility] [address] [place] [phone] * (ABNORMAL) Lipid Panel, Standard (01/14/2025 9:22 AM EDT) Triglycerides 86 <150 mg/dL [facility] Comment:Desirable Triglyceri de: less than 150 mg/dLBorderline High Triglyceride 150-199 mg/dLHigh Triglyceride: 200-499 mg/dLVery High Triglyceride: greater than or equal to 5OO mg/dL Cholesterol 193 <200 mg/dL [facility] Comment:Desirable Cholestero l: less than 200 mg/dLBorderline High Cholesterol: 200-239 mg/dLHigh Cholesterol: greater than 239 mg/dL LDL Cholesterol Calculated 134(H) <100 mg/dL [facility] Comment:Desirable LDL: less than 100 mg/dLNear Optimal/Above Optimal LDL: 110- 129 mg/dLBorderline High LDL: 130-159 mg/dLHigh LDL: 160-189 mg/dLVery High LDL: greater than or equal to 190 mg/dL HDL Cholesterol 42 >40 mg/dL [facility] Comment:Desirable HDL: great er than 40 mg/dL Note: This HDL assay may give artificially low results in patients with liver disease. Blood Venous blood specimen / Unknown 01/14/2025 9:22 AM EDT 01/14/2025 2:06 PM EDT Josee Collazo MD LAB BLOOD ORDERABLES Final Resul t [facility] [address] [place] [address] [phone] * (ABNORMAL) Basic Metabolic Panel (01/14/2025 9:22 AM EDT) Sodium 142 135 - 145 mmol/L [facility] Potassium 4.1 3.3 - 5.1 mmol/L [facility] Chloride 110(H) 96 - 108 mmol/L [facility] Carbon Dioxide 26 22 - 29 mmol/L [facility] Anion Gap 10(L) 12 - 20 [facility] Urea Nitrogen (BUN) 15 9 - 16 mg/dL [facility] Creatinine, Serum 1.04 0.5 - 1.4 mg/dL [facility] Estimated Glomerular Filt Rate >60 [facility] Comment:Chronic Kidney Disea se: Estimated GFR < 60 mL/min/1.80s6Bbtxyp Kidney Disease: Estimated GFR < 15 mL/min/1.73m2 Glucose 90 60 - 115 mg/dL [facility] Calcium 9.1 8.4 - 10.2 mg/dL [facility] Blood Venous blood specimen / Unknown 01/14/2025 9:22 AM EDT 01/14/2025 2:06 PM EDT us Josee Collazo MD LAB BLOOD ORDERABLES Final Resul t Performing Organization Address [facility] de Phone Number [facility] [address] [place] [address] [phone] * Rast Allergen (11/29/2024 11:57 AM EST) Rast Allergen SEE NOTE [facility] Comment:SEE SCANNED RESULTS IN EMR 11/29/2024 11:5 7 AM EST 11/29/2024 11:57 AM EST us Generic External Data Provider HISTORICAL/NON OR DERABLE LABS Final Result Performing Organization Address [facility]/ZIP Co de Phone Number [facility] [address] [place] [address] [phone] * Hepatitis Panel, General (08/13/2024 11:49 AM EST) Pathologist [facility] Hepatitis A IgM Nonreactive Nonreactive [facility] Comment:IgM antibodies to TORREZ V not detected; does not exclude earlyacute or recovered HAV infection. ~Hepatitis B Surface Antibody NONREACTIVE Nonreactive [facility] Comment:Nonreactive: < 8.00 mIU/mL Hepatitis B Core Antibody Nonreactive Nonreactive [facility] Hepatitis C Antibody Nonreactive Nonreactive [facility] Comment:Antibodies to HCV no t detected; does not exclude early acuteHCV infection. Hepatitis B Surface Ag Negative Negative [facility] 08/13/2024 11:4 9 AM EST 08/13/2024 11:49 AM EST Generic External Data Provider LAB BLOOD ORDERAB LES Final Result [facility] [address] [place] [address] [phone] * Cologuard?? colon cancer screening (08/10/2023 3:59 PM EDT) [facility] Cologuard Result Negative Negative 08/17/20 9:57 AM EST [employer] (CLIA #:[id number]) Comment: NEGATIVE TEST RESULT. A negative Cologuard [...] cancer. ??Following a negative Cologuard result, the Chinese Cancer Society and U.S. Multi-Society Task Force screening guidelines recommend a Cologuard re-screening interval of 3 years. References: [employer] Cancer Society Guideline for Colorectal Cancer Screening: https://www.cancer.org/cancer/nuxsq-prtelm-mqnbjb/wrmvjhycs-ljzqrwxpy-bxxgkof/ac s-rec ommendations.html.; Delroy DK, Rere CR, Guy RochaK, Colorectal Cancer Screening: Recommendations for Physicians and Patients from the U.S. Multi-Society Task Force on Colorectal Cancer Screening , Am J Gastroenterology 2017; 112:0296-2810. TEST DESCRIPTION: Composite algorithmic analysis of stool [...] (Harris Albarran al, N Engl J Med 2014;370(14):5897-1493.) Cologuard may produce a false negative or false positive result (no colorectal cancer or precancerous polyp present at colonoscopy follow up). A negative Cologuard test result does not guarantee the absence of CRC or advanced adenoma (pre-cancer). The current Cologuard screening interval is every 3 years. ([employer] Cancer Society and U.S. Multi-Society Task Force). Cologuard performance data in a 10,000 patient pivotal study using colonoscopy as the reference method can be accessed at the following location: www.myaNUMBER.[employer]/results. Additional description of the Cologuard test process, warnings and precautions can be found at www.[employer].com. Stool specimen (specimen) 08/10/2023 3:59 PM EDT 08/11/2023 6:19 PM EDT Koki Vu MD LAB MOLECULAR DIAGNOSTICS ORD ERABLES Final Result [employer] (CLIA #:[id number]) [address] [place] [address], * Colonoscopy (04/17/2018 6:07 AM EDT) Historical Provider HEALTH MAINTENANCE Final Result from Last 3 Months or Most Recently Relevant to Health Maintenance Insurance [place] [address] [place] [address] C3 Care Teams Curriculum Specialist Relationship Specialty Start Date End Date Koki Vu MD [address] [place] [phone] PCP - General Family Medicine 10/23/20 Addie Water Gas OperatorHole Digger Truck Driver 06/17/24
--- OUTSIDE RECORDS SUMMARY | 2025-02-26 10:32 | XMS_ITS | Clinical Summary ---
Author Organization [facility] Address [address] [place] [address] Care Team Providers Care Bureau Director Name Role Phone Unavailable Primary Care Provider [...] to complete this topic , [address] [place] [address]
--- OUTSIDE RECORDS SUMMARY | 2025-02-26 10:32 | XMS_ITS | Encounter Summary ---
Author Organization [employer] Address [address] [address] Care Team Providers Care Engine Cleaner Name Role Phone Koki Vu MD Primary Care Provider [phone] Reason for Referral * Consultation (Routine) - Closed Specialty Diagnoses / Procedures Referred By Contac t Referred To Contact Rheumatology Diagnoses Erosion of bone Tirso Mayfield MD [address] [place] [address] Phone: tel: fax: [facility] [address] [place] [address] Phone: tel: fax: Referral ID Status Reason Start Date Expiration Date V isits Requested Visits Authorized [id number] Closed Specialty Services Required 08/02/2024 08/02/2025 1 1 Encounter Details Date Type Department Care Team (Late st Contact Info) Description 08/02/2024 Orders Only [facility] CHC MED & PEDS [address] [place] [address] Tirso Mayfield MD [address] [place] [address] Erosion of bone (Primary Dx) Social History [...] Upcoming Encounters Date Type Department Care Team ([facility] st Contact Info) Description 04/04/2025 8:45 AM EDT Office Visit [facility] CHC MED & PEDS [address] [place] [address] Koki Vu MD [address] [place] [address] Scheduled Referrals Name Type Priority Associated Diagnoses [...] AM EDT) Rheumatoid Factor <13.0 <15.0 IU/mL [facility] Blood Venous blood specimen / Unknown 08/08/2024 10:40 AM EDT 08/08/2024 1:17 PM EDT Tirso Jara MD LAB BLOOD ORDERABL ES Final Result Performing Organization Address [facility] de Phone Number [facility] [address] [place] [phone] * Cyclic Citrullinated Peptide (CCP) Antibody (IgG) (08/08/2024 10:40 AM EDT) Cyclic Citrullinated Peptide <16 UNITS [facility] Comment:Reference RangeNegat shalom: <20Weak Positive: 20-39Moderate Positive: 40-59Strong Positive: >59THIS TEST WAS PERFORMED AT:[facility] [address] [id number] RECINOS MD Blood Venous blood specimen / Unknown 08/08/2024 10:40 AM EDT 08/08/2024 1:17 PM EDT Tirso Jara MD LAB BLOOD ORDERABL ES Final Result Performing Organization Address [facility] Co de Phone Number [facility] [address] [place] [phone] documented in this encounter Visit Diagnoses Diagnosis Erosion of bone- Primary documented in this encounter Additional Health Concerns Assessment Noted Time PHQ-9 Depression Total Score: 17 023 11:11 AM EDT documented as of this encounter Care Teams Engine Cleaner Relationship Specialty Start Date End Date Koki Vu MD [address] [place] [address] PCP - General Family Medicine 10/23/20 Addie Photoengraving FinisherReferral Coordinator 06/17/24 documented as of this encounter
--- OUTSIDE RECORDS SUMMARY | 2025-02-26 10:32 | XMS_ITS | Encounter Summary ---
Author Organization [employer] Address 75 [facility] [address]t [place] [address] Care Team Providers Care Fusion Operator Name Role Phone Koki Vu MD Primary Care Provider [phone] Reason for Visit * Reason Comments Med Refill Encounter Details Date Type Department Care Team ([facility] st Contact Info) Description 03/28/2024 Refill [facility] CHC MED & PEDS [address] [place] [address] Koki Vu MD [address] [place] [address] Social History Tobacco Use Types Packs/Day Years [...] Description 04/04/2025 8:45 AM EDT Office Visit [facility] CHC MED & PEDS [address] [place] [address] Koki Vu MD [address] [place] [address] documented as of this encounter Visit Diagnoses Not on filedocumented in this encounter Additional Health Concerns Assessment Noted Time PHQ-9 Depression Total Score: 17 023 11:11 AM EDT documented as of this encounter Care Teams Fusion Operator Relationship Specialty Start Date End Date Koki Vu MD [address] [place] [address] PCP - General Family Medicine 10/23/20 Addie Child Development DirectorTong Setter 06/17/24 documented as of this encounter
--- OUTSIDE RECORDS SUMMARY | 2025-02-26 10:32 | XMS_ITS | Encounter Summary ---
Author Organization [employer] Address 75 [facility] [address]t [place] [address] Care Team Providers Care Expediter Clerk Name Role Phone Koki Vu MD Primary Care Provider [phone] Reason for Visit * Reason Comments Med Refill Encounter Details Date Type Department Care Team ([facility] st Contact Info) Description 10/25/2023 Refill [facility] CHC MED & PEDS [address] [place] [address] Koki Vu MD [address] [place] [address] Social History Tobacco Use Types Packs/Day Years [...] Office Visit [facility] CHC MED & PEDS [address] [place] [address] Koki Vu MD [address] [place] [address] documented as of this encounter Visit Diagnoses Not on filedocumented in this encounter Additional Health Concerns Assessment Noted Time PHQ-9 Depression Total Score: 17 023 11:11 AM EDT documented as of this encounter Care Teams Expediter Clerk Relationship Specialty Start Date End Date Koki Vu MD [address] [place] [address] PCP - General Family Medicine 10/23/20 Addie Solvent Process Extractor OperatorCanvas Cutter Hand 06/17/24 documented as of this encounter
--- OUTSIDE RECORDS SUMMARY | 2025-02-26 10:32 | XMS_ITS | Encounter Summary ---
Author Organization [employer] Address 75 [facility] 7t [place] [address] Care Team Providers Care Side Guider Name Role Phone Koki Vu MD Primary Care Provider [phone] Encounter Details Date Type Department Care Team (Late st Contact Info) Description 02/05/2024 Orders Only [facility] MEDICINE [address] [place], [place] [phone] Provider, MD Nasima Social History Tobacco Use [...] Description 04/04/2025 8:45 AM EDT Office Visit [facility] MED & PEDS [address] [place] [address] Koki Vu MD [address] [place] [address] documented as of this encounter Procedures Procedure [...] documented as of this encounter Care Teams Side Guider Relationship Specialty Start Date End Date Koki Vu MD [address] [place] [address] PCP - General Family Medicine 10/23/20 Addie Roll Forming Machine OperatorRolling Up Machine Operator 06/17/24 documented as of this encounter
--- OUTSIDE RECORDS SUMMARY | 2025-02-26 10:32 | XMS_ITS | Encounter Summary ---
Author Organization [employer] Address [address] [place] [address] 7t [place] [address] Care Team Providers Care Swing Saw Operator Name Role Phone Koki Vu MD Primary Care Provider [phone] Reason for Visit * Reason Onset Date Comments Durable Medical Equipment 02/07/2024 Encounter Details Date Type Department Care Team ([facility] Contact Info) Description 02/07/2024 Telephone [facility] CHC MED & PEDS [address] [place] [address] Koki Vu MD [address] [place] [address] Durable Medical Equipment Social History Tobacco Use Types Packs/Day Years Used Date Smoking Tobacco: Never Passive Smoke Exposure: Never Smokeless Tobacco: Never Alcohol Use Standard Drinks/Week Comments Never 0 (1 standard drink = 0.6 oz pur e alcohol) Depression Answer Date Recorded Patient Health Questionnaire-9 Score 17 07/04/2023 Housing Stability Answer Date Recorded What is your housing situation today? I have menyd chan 07/27/[address] you [...] Description 04/04/2025 8:45 AM EDT Office Visit [facility] MED & PEDS [address] [place] [address] Koki Vu MD [address] [place] [address] documented as of this encounter Visit Diagnoses Not on filedocumented in this encounter Additional Health Concerns Assessment Noted Time PHQ-9 Depression Total Score: 17 023 11:11 AM EDT documented as of this encounter Care Teams Swing Saw Operator Relationship Specialty Start Date End Date Koki Vu MD [address] [place] [address] PCP - General Family Medicine 10/23/20 Addie Printing TechnicianCasino Runner 06/17/24 documented as of this encounter
--- OUTSIDE RECORDS SUMMARY | 2025-02-26 10:32 | XMS_ITS | Encounter Summary ---
Author Organization [employer] Address 75 [facility] 7t [place] [address] Care Team Providers Care Egg Breaker Name Role Phone Koki Vu MD Primary Care Provider [phone] Encounter Details Date Type Department Care Team (Late st Contact Info) Description 08/23/2023 Abstract [facility] [address] [place] [address] Koki Vu MD [address] [place], [place] [phone] Social History Tobacco Use Types Packs/Day Years [...] Description 04/04/2025 8:45 AM EDT Office Visit [facility] MED & PEDS [address] [place] [address] Koki Vu MD [address] [place] [address] documented as of this encounter Visit Diagnoses Not on filedocumented in this encounter Additional Health Concerns Assessment Noted Time PHQ-9 Depression Total Score: 17 023 11:11 AM EDT documented as of this encounter Care Teams Egg Breaker Relationship Specialty Start Date End Date Koki Vu MD [address] [place] [address] PCP - General Family Medicine 10/23/20 Addie Web Application DeveloperWatch Supervisor 06/17/24 documented as of this encounter
--- OUTSIDE RECORDS SUMMARY | 2025-02-26 10:32 | XMS_ITS | Encounter Summary ---
Author Organization [employer] Address 75 [facility] 7t [place] [address] Care Team Providers Care Professor Of Architecture Name Role Phone Koki Vu MD Primary Care Provider Reason for Visit * Reason Comments Med Refill Encounter Details Date Type Department Care Team ([facility] st Contact Info) Description 10/25/2023 Refill [facility] CHC MED & PEDS [address] [place] [address] Koki Vu MD [address] [place] [address] Social History Tobacco Use Types Packs/Day Years [...] Description 04/04/2025 8:45 AM EDT Office Visit [facility] CHC MED & PEDS [address] [place] [address] Koki Vu MD [address] [place] [address] documented as of this encounter Visit Diagnoses Not on filedocumented in this encounter Additional Health Concerns Assessment Noted Time PHQ-9 Depression Total Score: 17 023 11:11 AM EDT documented as of this encounter Care Teams Professor Of Architecture Relationship Specialty Start Date End Date Koki Vu MD [address] [place] [address] PCP - General Family Medicine 10/23/20 Addie Teacher'S AssistantAntisubmarine Weapons Officer 06/17/24 documented as of this encounter
--- OUTSIDE RECORDS SUMMARY | 2025-02-26 10:32 | XMS_ITS | Encounter Summary ---
Author Organization [employer] Address 75 [facility] [address] [place] [address] Care Team Providers Care Position Classification Manager Name Role Phone Koki Vu MD Primary Care Provider [phone] Encounter Details Date Type Department Care Team ([facility] st Contact Info) Description 09/27/2024 Telephone [facility] CHC MED & PEDS [address] [place], [place] [phone] Koki Vu MD [address] [place], [place] [phone] Social History Tobacco Use Types Packs/Day Years [...] t he electric, gas, oil or water [email or web address] threatened to shut off services in your [...] EST TC from [place] flores DO with [facility] pulmonology requesting a call back from pcp to discuss further medical options. Best contact # [phone]. documented in this encounter Plan of Treatment Upcoming Encounters Date Type Department Care Team ([facility] st Contact Info) Description 04/04/2025 8:45 AM EDT Office Visit [facility] CHC MED & PEDS [address] [place] [address] Koki Vu MD [address] [place] [address] documented as of this encounter Visit Diagnoses Not on filedocumented in this encounter Additional Health Concerns Assessment Noted Time PHQ-9 Depression Total Score: 17 023 11:11 AM EDT documented as of this encounter Care Teams Position Classification Manager Relationship Specialty Start Date End Date Koki Vu MD [address] [place] [address] PCP - General Family Medicine 10/23/20 Addie Esthetician/OwnerCoal Chute Worker 06/17/24 documented as of this encounter
== END 2025-02-26 10:04 | disposition home or self-care (01) ==
LOC: HO.PMC 09:14
PROVIDERS: PCP Family Medicine; Visit Provider Registered Nurse Emergency
DX: M47.812 Spondylosis without myelopathy or radiculopathy, cervical region (principal)
CPT/HCPCS: 99024

== ENCOUNTER → 2025-02-26 09:14 | Outpatient (BNVA) | payer MEDICAID, SELFPAY | PROVIDERS: PCP Family Medicine; Visit Provider Registered Nurse Emergency | DX: M47.812 Spondylosis without myelopathy or radiculopathy, cervical region (principal) | CPT/HCPCS: 99212 ==

== ENCOUNTER 2025-03-10 13:47 | Outpatient (AMB) | payer MEDICAID, SELFPAY ==
--- NOTE | 2025-03-10 13:52 | MHC.OFFVIS ---
Vital Signs 03/10/25 13:53 Height 5 ft 3 in Weight 173 lb 15.115 oz BMI 30.8 BP 126/86 Blood Pressure Location Lt brachial Position Sitting Pulse 68 Pulse Source Pulse Oximeter Pulse Oximetry (%) 96 Oxygen Delivery Method Room Air Intake Visit Reasons: Acquired hypothyroidism Intake Note: New patient present today for Acquired hypothyroidism office visit. Field Irrigation Worker Required: Yes Field Irrigation Worker Language: Agriculture Technician Services: Field Irrigation Worker Present Field Irrigation Worker Name: Baljeet Information Interpreted: non-clinical & clinical Accompanied by: Self / Same As Patient Allergies [id number] [From [employer] Global[employer]Symwave Autoinjector] Allergy (Unknown, Verified 03/10/25 13:56) Rash Medication List - Last Reconciled 03/10/25 by Luz Good MD albuterol sulfate 90 mcg/actuation (ProAir HFA) 2 puffs inhalation Q6H PRN atogepant (Qulipta) 60 mg PO DAILY 30 days atorvastatin 80 mg PO BEDTIME azelastine 137 mcg (0.137 mL) intranasal BID 30 days bumetanide 1 mg PO DAILY 30 days buspirone 15 mg PO BID celecoxib (Celebrex) 200 mg PO BID PRN cholecalciferol (vitamin D3) 50 mcg PO DAILY diclofenac sodium 1% (Voltaren Arthritis Pain) 2 grams topical QID duloxetine 20 mg PO epinephrine IM DIRECTED esomeprazole magnesium 40 mg PO DAILY etanercept (Enbrel SureClick) 50 mg subcut QWEEK fluticasone propion-salmeterol 250-50 mcg/dose (Advair Diskus) 1 ea PO BID fluticasone propionate 50 mcg/actuation 1 spray intranasal DAILY levothyroxine 88 mcg PO DAILY lidocaine 5% 1 patch topical DAILY loratadine 10 mg PO DAILY magnesium oxide 400 mg PO DAILY 90 days methocarbamol 500 mg PO BEDTIME 90 days nortriptyline 10 mg PO BEDTIME polyethylene glycol 3350 (ClearLax) 17 grams PO BID pregabalin 225 mg PO BID riboflavin (vitamin B2) 400 mg PO DAILY 90 days sucralfate 10 mL PO BID sumatriptan succinate 50 - 100 mg orally at onset of headache, may repeat in 2 hrs PRN; max 2 tabs per day or 4 tabs/week (may take with Tylenol) 30 days triamcinolone acetonide 0.1% appl topical DAILY HPI Comments Details: 59-year-old male coming in today for follow up of hypothyroidism. Last saw Dr. Humphrey back in December 2022. First diagnosed with hypothyroidism sometime around . Has been on levothyroxine 88 mcg daily for some time. Normal TSH from January 2025. Does report tiredness and constipation. Weight stable. ? Does report some intermittent difficulty swallowing. No voice changes. He is very anxious about his difficulty swallowing, he saw GI for this is well, barium swallow showed Ba swallow: Mild to moderate cricopharyngeal achalasia, Status post anterior fusion C5-C7 without gross complication. Prominent ventral C4-C5 osteophyte without mass effect. small hiatal hernia EGD 08/01 with savary dilation: small hiatal hernia noted schavanitaki ring Patient denies any history of childhood neck radiation. Denies having ever used lithium, amiodarone or biotin supplements. Patient denies any family history of thyroid cancer or thyroid disease. 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 Venous congestion Pain in right lower leg Lipoma of scalp Kidney cysts Spondylosis of thoracic spine Spondylosis of lumbar spine Schatzki's ring Fatty liver HTN (hypertension) Pre-diabetes Dysphagia Asthma Hx of chest pain DAYNA on CPAP Hypothyroid Psoriasis Psoriatic arthritis Chronic pain Mood disorder Depression Avascular necrosis Chronic pain syndrome Spondylosis of lumbar region without myelopathy or radiculopathy Spondylosis, cervical Degeneration, intervertebral disc, cervical Surgical History History of back surgery History of surgery Status post excision of lipoma (~10/21/21) Status post cardiac catheterization Hx of cardiac cath H/O neck surgery Hx of hand surgery Hx of endoscopy History of colonoscopy Family History Father Cirrhosis Alcoholism Mother Diabetes HTN (hypertension) Parkinson disease Brother Cirrhosis Alcoholism Social History Household Members: Spouse and Children Are you a primary date night caregiver to a significant other at home: No Do you presently have visiting nurse or other home services: No Alcohol intake: never Patient Tobacco Use Status: Former Tobacco user Tobacco use type: Cigarette Second Hand Smoke Exposure: No Current occupational status: disabled Current occupation: rt handed Physical Exam Vital Signs: Last Vital Signs Pulse 68 03/10/25 13:53 BP 126/86 03/10/25 13:53 Pulse Ox 96 03/10/25 13:53 Oxygen Delivery Method Room Air 03/10/25 13:53 BMI result Body Mass Index 30.8 Assessment & Plan Assessment & Plan (1) Hypothyroid: Code(s): E03.9 - Hypothyroidism, unspecified Category: Medical Qualifiers: 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 Normal TSH from January 2025. Plan: -continue levothyroxine 88 mcg daily -plan to have him do annual labs with TSH with reflex free T4 (2) Dysphagia: Code(s): R13.10 - Dysphagia, unspecified Category: Medical Qualifiers: Dysphagia type: other dysphagia Qualified Code(s): R13.19 - Other dysphagia Plan: He has had intermittent dysphagia for a few years now. He was evaluated by GI, barium swallow showed Mild to moderate cricopharyngeal achalasia, Status post anterior fusion C5-C7 without gross complication. Prominent ventral C4-C5 osteophyte without mass effect. small hiatal hernia EGD 08/01 with savary dilation: small hiatal hernia noted schatzki ring Looks like at this time dysphagia is thought to be maybe as a result of the osteophyte in his cervical spine or possibly a combination of acid reflux and postnasal drip, at this time he is very apprehensive about choking, while I do not feel any palpable nodules on my exam, we can get a thyroid ultrasound to ensure that this is not related to his thyroid. Plan: -ordered ultrasound of the thyroid, follow up in 6 weeks to discuss results Plan I spent 30 minutes in reviewing the record, seeing the patient and documenting in the medical record. Orders: Orders US thyroid Today R13.19 - Other dysphagia Patient Instructions: Do ultrasound of the thyroid , someone will call you to schedule this Follow up of in 6 weeks to discuss results Realice rosibel ecograf?a de tiroides. Se le llamar? para programarla. Se realizar? rosibel kathy de seguimiento en 6 semanas para analizar los resultados. 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
[2025-03-10 13:53] VITALS: BP 126/86; PULSE 68; O2SAT 96; BMI 30.8
--- OUTSIDE RECORDS SUMMARY | 2025-03-10 15:01 | XMS_ITS | Clinical Summary ---
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 Psoriatic arthritis [...] Already f w psychiatrist and therapist at [facility] ---advised to continue care and may need eval if meds can be adjusted Immunizations Immunization Administration Dates Next Due Hepatitis A Vaccine, Adult Dosage 08/14/2019 Hepatitis B adult (ENGERIX-B ADULT) vaccine 1 mL IM 08/14/2019 Influenza, Injectable, Quadr ivalent, Contains Preservative 09/06/2018,12/11/2017 Influenza, Injectable, Quadr ivalent, Preservative Free 07/31/2023,07/02/2021,08/26/2020,2018 Pneumococcal Conjugate Vacci ne, 13 Valent 06/07/2019 Pneumococcal conjugate PCV20,polysaccharide [id number] conjugate, adjuvant, PF (Prevnar 20) 02/01/2024 RSV, [...] 06/24/2024, , 07/02/2021, Additional history exists Insurance [employer] Care Teams Deputy Administrator Relationship Specialty Start Date End Date Koki Vu [address] [place] [phone] PCP - General 12/26/23
== END 2025-03-10 14:20 | disposition home or self-care (01) ==
LOC: HO.ENCR 13:48
PROVIDERS: PCP Family Medicine; Visit Provider Student in an Organized Health Care Education/Training Program
DX: E06.3 Autoimmune thyroiditis (principal); R13.19 Other dysphagia
CPT/HCPCS: 99214

== ENCOUNTER → 2025-03-10 13:47 | Outpatient (BNVA) | payer MEDICAID, SELFPAY | PROVIDERS: PCP Family Medicine; Visit Provider Student in an Organized Health Care Education/Training Program | DX: R13.19 Other dysphagia (principal); E06.3 Autoimmune thyroiditis | CPT/HCPCS: 99212 ==

== ENCOUNTER 2025-03-24 14:56 | Outpatient (REF) | payer MEDICAID, SELFPAY ==
--- NOTE | ~2025-03-24 | US_ITS ---
EXAMINATION: US THYROID CLINICAL INFORMATION: Hypothyroidism COMPARISON: None available. TECHNIQUE: Linear transducer grayscale and color Doppler examination with attention to the region of the thyroid. FINDINGS: SIZE: Measurements of the thyroid lobes and nodules are given in sagittal, anteroposterior and transverse dimensions respectively. Right Thyroid Lobe: 3.8 x 1.9 x 1.2 cm, volume 4.4 mL. Parenchyma: The gland echotexture is homogeneous. Thyroid vascularity is normal. Left Thyroid Lobe: 3.1 x 1.4 x 1.2 cm, volume 2.6 mL. Parenchyma: The gland echotexture is homogeneous. Thyroid vascularity is normal. Isthmus: 0.2 cm in maximum AP dimension. There are no nodules. NODES: No lymphadenopathy is seen in the tissue surrounding the thyroid gland. US/US thyroid IMPRESSION: 1. Normal thyroid ultrasound. Electronically signed by: Kenny Ho MD 03/24/2025 03:53 PM EDT
--- OUTSIDE RECORDS SUMMARY | 2025-03-24 16:41 | XMS_ITS | Clinical Summary ---
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 Psoriatic [...] ne, 13 Valent 06/07/2019 Pneumococcal conjugate PCV20,polysaccharide [id number] conjugate, adjuvant, PF (Prevnar 20) 02/01/2024 RSV, [...] 06/24/2024, , 07/02/2021, Additional history exists Insurance [employer] Care Teams Child Care Center Assistant Director Relationship Specialty Start Date End Date Koki Vu [address] [place] [phone] PCP - General 12/26/23
== END 2025-03-24 14:57 | disposition home or self-care (01) ==
LOC: HO.US 14:56
PROVIDERS: PCP Family Medicine; Visit Provider Student in an Organized Health Care Education/Training Program
DX: R13.19 Other dysphagia (principal)
CPT/HCPCS: 76536

== ENCOUNTER → 2025-03-24 15:01 | Outpatient (BNV) | payer MEDICAID, SELFPAY | PROVIDERS: PCP Family Medicine; Visit Provider Radiology Diagnostic Radiology | DX: E03.9 Hypothyroidism, unspecified (principal) | CPT/HCPCS: 76536 ==

== ENCOUNTER 2025-03-25 11:35 | Inpatient (IN) | payer MEDICAID, SELFPAY ==
[2025-03-25] VITALS (7 sets, daily range): BP systolic 106–126; BP diastolic 59–86; PULSE 76–106; RESP 16–20; TEMP 36.4–37.1; O2SAT 95–96; BMI 28.1
--- NOTE | ~2025-03-25 | CT_ITS ---
EXAMINATION: CT ABDOMEN AND PELVIS WITH CONTRAST CLINICAL INFORMATION: Abdominal pain. COMPARISON: December 31, 2023. TECHNIQUE: Multidetector volumetric images were obtained from the superior aspect of the liver through the pubic symphysis following administration 85 mL of Omnipaque 350 intravenous contrast. Sagittal and coronal reformatted images were obtained on the technologist's workstation. Oral contrast: No This CT examination was performed using dose optimization techniques as appropriate, variously including the following: *Automated exposure control *Adjustment of mA and/or kV according to patient size (this includes techniques or standardized protocols for targeted exams where dose is matched to indication/reason for exam; i.e. extremities or head) *Use of iterative reconstruction technique. DLP: 601 mGy centimeter. FINDINGS: LUNG BASES: No acute airspace disease. LIVER, GALLBLADDER, AND BILIARY TREE: Liver measures 16 cm. Multifocal well-defined fluid density lesions, the largest measures 2.5 cm in the right hepatic lobe. The main portal vein, hepatic veins and intrahepatic portion of the IVC are patent. No intrahepatic biliary ductal dilatation. No pericholecystic fluid collection or gallbladder wall thickening. Common bile duct measures 3 mm. PANCREAS: No focal lesion. No main pancreatic ductal dilatation. No peripancreatic fluid collection. SPLEEN: 8 cm. No focal lesion. ADRENAL GLANDS: No nodular lesion. KIDNEYS AND URETERS: No hydronephrosis. No gross nephrolithiasis. Multifocal cystic lesions, the largest in the left kidney measures 1.5 cm. BLADDER: Fluid-filled. GASTROINTESTINAL TRACT: There is a concentric wall thickening involving the right hemicolon from the cecum to the transverse colon. There are few scattered diverticula in the transverse colon and sigmoid colon. There is mild pericolonic edema pattern. The appendix is normal. No ascites. No peripheral enhancing fluid collection. No pneumatosis intestinalis. No pneumoperitoneum. ABDOMINAL WALL: Small fat-containing umbilical and inguinal hernias. Posttreatment changes in the inguinal scrotal canals. LYMPH NODES: Prominent lymph nodes in the mesentery involving mostly the mesocecum. VASCULAR: No aneurysm or dissection, abdominal aorta. PELVIC VISCERA: Dystrophic calcifications without gross enlargement. Hyperdensities/calcifications, penile OSSEOUS STRUCTURES: Sclerotic marginated lytic abnormality in the left femoral head without gross volume loss. Multilevel thoracolumbar spondylosis without acute fracture or gross listhesis. Decreased intervertebral disc height at L5-S1. CT/CT abdomen pelvis w IV con IMPRESSION: Acute colitis without intestinal obstruction pattern nor abscesses or perforation. Inflammatory bowel disease cannot be excluded. Multifocal hepatic cystic lesions. Bosniak type I/type II cystic lesion, left kidney. Diverticular disease. Avascular necrosis, left femoral head, old. Fleischner guidelines were followed. Electronically signed by: Jakob Sibley MD 03/25/2025 02:33 PM EDT
--- NOTE | 2025-03-25 11:43 | ED.GENADULT ---
HPI - General Adult General Chief complaint: Abdominal Pain Stated complaint: chills, fever, Vomiting Time Seen by Provider: 03/25/25 12:15 Related Data Home Medications ?Medication ?Instructions ?Recorded ?Confirmed cholecalciferol (vitamin D3) 50 50 mcg PO DAILY 08/05/22 03/25/25 mcg (2,000 unit) tablet pregabalin 225 mg capsule 225 mg PO BID 09/27/23 03/25/25 lidocaine 5 % topical patch 1 patch topical DAILY PRN Pain 08/16/24 03/25/25 albuterol sulfate 90 mcg/actuation 2 puff inhalation Q4H PRN wheezing 03/25/25 03/25/25 aerosol inhaler (Ventolin HFA) atogepant 60 mg tablet (Qulipta) 60 mg PO DAILY 03/25/25 03/25/25 buspirone 10 mg tablet 10 mg PO TID 03/25/25 03/25/25 diclofenac sodium 1 % topical gel 2 g topical QID PRN Pain 03/25/25 03/25/25 (Voltaren Arthritis Pain) etanercept 50 mg/mL (1 mL) 50 mg subcut TU 03/25/25 03/25/25 subcutaneous pen injector (Enbrel SureClick) levothyroxine 88 mcg tablet 88 mcg PO DAILY@0600 03/25/25 03/25/25 polyethylene glycol 3350 17 17 g PO BID PRN Constipation 03/25/25 03/25/25 gram/dose oral powder (ClearLax) duloxetine 20 mg capsule,delayed 20 mg PO 03/31/25 release magnesium oxide 400 mg (241.3 mg 400 mg PO DAILY 03/31/25 magnesium) tablet Previous Rx's ?Medication ?Instructions ?Recorded fluticasone 250 mcg-salmeterol 50 1 ea PO BID #60 ea 12/12/22 mcg/dose blistr powdr for inhalation (Advair Diskus) sucralfate 100 mg/mL oral 10 ml PO BID #1,000 mL 04/15/24 suspension fluticasone propionate 50 1 spray intranasal DAILY #16 grams 07/29/24 mcg/actuation nasal spray,suspension riboflavin (vitamin B2) 400 mg 400 mg PO DAILY 90 days #90 tabs 01/16/25 tablet sumatriptan succinate 100 mg tablet 50 - 100 mg (0.5 - 1 x 100 mg) PO 04/10/25 .COMPLEX PRN migraine headache 30 days #12 tabs esomeprazole magnesium 40 mg 40 mg PO DAILY #90 caps 02/05/25 capsule,delayed release celecoxib 200 mg capsule (Celebrex) 200 mg PO BID PRN pain #90 caps 02/11/25 loratadine 10 mg tablet 10 mg PO DAILY #30 tabs 02/11/25 azithromycin 500 mg tablet 500 mg PO DAILY 3 days #3 tabs 03/28/25 dicyclomine 10 mg capsule 10 mg PO TID #60 caps 03/31/25 guaifenesin 1,200 mg tablet, 1,200 mg PO BID #60 tabs 03/31/25 extended release 12 hr (Mucinex) Allergies Allergy/AdvReac Type Severity Reaction Status Date / Time fremanezumab-vfrm (From Allergy Unknown Rash Verified 04/02/25 09:33 [employer] Autoinjector) opiods Allergy Unknown Rash Uncoded 03/31/25 09:30 [facility] Past Medical History 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 Venous congestion Pain in right lower leg Lipoma of scalp Kidney cysts Spondylosis of thoracic spine Spondylosis of lumbar spine Schatzki's ring Fatty liver HTN (hypertension) Pre-diabetes Dysphagia Asthma Hx of chest pain DAYNA on CPAP Hypothyroid Psoriasis Psoriatic arthritis Chronic pain Mood disorder Depression Avascular necrosis Chronic pain syndrome Spondylosis of lumbar region without myelopathy or radiculopathy Spondylosis, cervical Degeneration, intervertebral disc, cervical Surgical History History of back surgery History of surgery Status post excision of lipoma (~10/21/21) Status post cardiac catheterization Hx of cardiac cath H/O neck surgery Hx of hand surgery Hx of endoscopy History of colonoscopy Family History Family History Father Cirrhosis Alcoholism Mother Diabetes HTN (hypertension) Parkinson disease Brother Cirrhosis Alcoholism Social History Social History (Reviewed 06/23/25 @ 09:30 by DOYLE Pulliam Household Members: Spouse and Children Housing: House Are you a primary career development manager to a significant other at home: No Do you presently have visiting nurse or other home services: Yes Alcohol intake: never Patient Tobacco Use Status: Never used Tobacco Tobacco use type: Cigarette Second Hand Smoke Exposure: No service: No Current occupational status: disabled Current occupation: rt handed Physical Exam ED Vital Signs: BMI result Body Mass Index 28.1 Course Course Course Narrative: RME, this is a rapid medical exam performed by Lamont Reyes please refer to primary provider for complete H&P- 59-year-old male presents for evaluation of generalized abdominal pain, nausea vomiting. He reports subjective fevers but is afebrile in triage. He reports he has to spinal stimulators in his cervical spine, influenza 1 month ago and 2 months ago respectively. Plan for labs including liver enzymes, urinalysis. Medications Administered Discontinued Medications Generic Name Dose Route Start Last Admin Trade Name Freq PRN Reason Stop Dose Admin Acetaminophen 650 mg 03/26/25 02:20 03/26/25 02:54 Acetaminophen 325 Mg Tablet PO 03/26/25 02:21 650 mg ONCE ONE Administration Buspirone HCl 10 mg 03/26/25 15:00 03/28/25 08:27 Buspirone Hcl 10 Mg Tablet PO 10 mg TID AUREA Administration Ceftriaxone Sodium 1 gm 03/25/25 16:00 03/26/25 16:10 Ceftriaxone Sodium 1 Gm Vial IVPUSH 1 gm Q24H AUREA Administration Enoxaparin Sodium 40 mg 03/25/25 16:00 03/27/25 15:18 Enoxaparin Sodium 40 Mg/0.4 Ml Syringe SUBCUT 40 mg Q24H AUREA Administration Fentanyl 50 mcg 03/25/25 12:35 03/25/25 12:50 Fentanyl Citrate/Pf 100 Mcg/2 Ml Vial IVPUSH 03/25/25 12:36 50 mcg ONCE ONE Administration Protocol Fluticasone Propionate 1 spray 03/27/25 09:00 03/28/25 09:00 Fluticasone Propionate Nasal 16 Gm [place] NOSTRIL-B Not Given DAILY AUREA Fluticasone/Vilanterol 1 puff 03/27/25 08:00 03/28/25 08:30 Fluticasone/Vilanterol 100/25 Blst.W.Dev INHALE 1 puff RDAILY AUREA Administration Sodium Chloride 1,000 mls @ 999 mls/hr 03/25/25 12:45 03/25/25 14:02 Ns IVCONT 03/25/25 13:45 Infused .Q1H1M AUREA Infusion Sodium Chloride 1,000 mls @ 120 mls/hr 03/25/25 15:30 03/27/25 08:34 Ns IVCONT Infused .Q8H20M AUREA Infusion Metronidazole 500 mg in 100 mls @ 100 mls/hr 03/25/25 16:00 03/25/25 18:22 Flagyl IV Not Given Q8H AUREA Ciprofloxacin 400 mg in 200 mls @ 200 mls/hr 03/25/25 15:35 03/25/25 20:30 Cipro IV 03/25/25 16:34 Infused ONCE ONE Infusion Metronidazole 500 mg in 100 mls @ 100 mls/hr 03/25/25 15:36 03/25/25 17:36 Flagyl IV 03/25/25 16:35 Infused ONCE ONE Infusion Metronidazole 500 mg in 100 mls @ 100 mls/hr 03/26/25 01:00 03/27/25 09:40 Flagyl IV Infused Q8H AUREA Infusion Azithromycin 500 mg/ Sodium 250 mls @ 125 mls/hr 03/27/25 14:00 03/28/25 14:49 Chloride IV Not Given Q24H AUREA Iohexol 100 ml 03/25/25 14:20 03/25/25 14:21 Iohexol 350 Mg/Ml 100 Ml Infus..Btl IV 03/25/25 14:21 85 ml ONCE ONE Administration Levothyroxine Sodium 88 mcg 03/27/25 06:00 03/28/25 05:31 Levothyroxine Sodium 88 Mcg Tablet PO 88 mcg DAILY@0600 AUREA Administration Loratadine 10 mg 03/27/25 09:00 03/28/25 08:27 Loratadine 10 Mg Tablet PO 10 mg DAILY AUREA Administration Lorazepam 0.5 mg 03/25/25 17:54 03/26/25 08:51 Lorazepam 0.5 Mg Tablet PO 0.5 mg Q8H PRN Administration Nausea and Vomiting Magnesium Oxide 400 mg 03/27/25 09:00 03/28/25 08:33 Magnesium Oxide 400 Mg Tablet PO 400 mg DAILY AUREA Administration Metoclopramide HCl 10 mg 03/25/25 17:54 03/26/25 20:27 Metoclopramide Hcl 10 Mg/2 Ml Vial IVPUSH 10 mg Q4H PRN Administration Nausea and Vomiting Morphine Sulfate 3 mg 03/25/25 17:53 03/27/25 14:49 Morphine Sulfate 4 Mg/Ml Cartridge IVPUSH 3 mg Q3H PRN Administration Pain, Severe (Pain Scale 7-10) Protocol Patient Own 60 mg 03/28/25 09:00 03/28/25 08:38 Medication ( PO 60 mg Atogepant [Qulipta] DAILY AUREA Administration 60 Mg Tablet) Omeprazole 20 mg 03/27/25 09:00 03/28/25 08:42 Omeprazole 20 Mg Capsule.Dr PO 20 mg DAILY AUREA Administration Ondansetron HCl 4 mg 03/25/25 12:35 03/25/25 12:49 Ondansetron Hcl 4 Mg/2 Ml Vial IVPUSH 03/25/25 12:36 4 mg ONCE ONE Administration Ondansetron HCl 4 mg 03/25/25 15:30 03/25/25 15:38 Ondansetron Hcl 4 Mg/2 Ml Vial IVPUSH 03/25/25 15:31 4 mg ONCE ONE Administration Pregabalin 225 mg 03/26/25 21:00 03/28/25 08:27 Pregabalin 75 Mg Capsule PO 225 mg BID AUREA Administration Sodium Chloride 3 ml 03/25/25 16:00 03/28/25 08:27 0.9 % Sodium Chloride Flush 3 Ml Syringe IVFLUSH 3 ml QSHIFT AUREA Administration Sucralfate 1 gm 03/26/25 21:00 03/28/25 08:41 Sucralfate Oral Suspension 1 Gm/10 Ml Oral.Susp PO 1 gm BID AUREA Administration Vitamin D 50 mcg 03/27/25 09:00 03/28/25 08:27 Cholecalciferol (Vitamin D3) 25 Mcg Tablet PO 50 mcg DAILY AUREA Administration Medical Decision Making Lab Data 03/26/25 06:43 03/28/25 08:58 Labs: Lab Results 03/25/25 03/25/25 Range/Units 12:05 12:06 WBC 13.2 H (4.8-10.8) X10*3/uL RBC 4.81 (4.60-5.80) X10*6/uL Hgb 14.8 (14.0-18.0) g/dl Hct 42.2 (42.0-52.0) % MCV 87.7 (80.0-98.0) fL MCH 30.8 (27.0-33.0) pg MCHC 35.1 (31.0-36.0) g/dl RDW 13.7 (11.0-16.0) % Plt Count 263 (160-400) X10*3/uL MPV 8.9 L (9.4-12.4) fL Immature Gran % (Auto) 0.5 H (0.0-0.4) % Neut % (Auto) 75.7 H (45-73) % Lymph % (Auto) 18.9 L (20-40) % [place] % (Auto) 4.6 (2-11) % Eos % (Auto) 0.1 (0-4) % Baso % (Auto) 0.2 (0-2) % Lymph # (Auto) 2.5 (1.2-4.9) X10*3/uL [place] # (Auto) 0.6 (0.1-1.2) X10*3/uL Eos # (Auto) 0.0 (0.0-0.4) X10*3/uL Baso # (Auto) 0.0 (0.0-0.2) X10*3/uL Abs Immat Gran (auto) 0.06 H (0.00-0.03) X10*3/uL Absolute Neuts (auto) 10.0 H (2.0-8.3) x10*3/uL Absolute Nucleated RBC 0.000 (0.0-0.012) X10*3/uL Nucleated RBC % (auto) 0.0 (0.0-0.2) /100WBC Sodium 138 (135-145) mmol/L Potassium 3.9 (3.3-5.1) mmol/L Chloride 112 H (96-108) mmol/L Carbon Dioxide 19 L (22-29) mmol/L Anion Gap 11 L (12-20) BUN 16 (9-16) mg/dL Creatinine 1.42 H (0.5-1.4) mg/dL Estim Creat Clear Calc 52.2 Estimated GFR 51 Random Glucose 92 (60-115) mg/dL Calcium 9.2 (8.4-10.2) mg/dL Total Bilirubin 0.5 (0.0-1.0) mg/dL Direct Bilirubin 0.2 (0.0-0.5) mg/dL AST 37 (5-37) U/L ALT 29 (0-40) U/L Alkaline Phosphatase 71 (39-117) U/L Total Protein 7.1 (6.5-8.0) g/dL Albumin 4.2 (3.5-5.0) g/dL Lipase 21 (8-78) U/L Influenza Type A (PCR) NEGATIVE (Negative) Influenza Type B (PCR) NEGATIVE (Negative) RSV RNA Qual (PCR) NEGATIVE (Negative) SARS-CoV-2 RNA (RT-PCR) POSITIVE A (Negative) Discharge Plan Discharge Clinical Impression: Abdominal pain, Colitis, DB (acute kidney injury), Metabolic acidosis Patient Disposition: Admitted As Inpatient Interventions: Admission Worksheet (ED) Last Done: 03/25/25 16:16 Discharge Date/Time: 03/26/25 00:47
--- NOTE | 2025-03-25 12:06 | PC.NURSE ---
Georgian speaking. Patient presents to ED c/o abdomen pain rated 9/10 non radiating. This pain started on Monday and has become progressively worse. c/o N/V patient stated their was small amount of bright red blood in vomit . Patient also c/o diarrhea, no blood noted. Denies SOB. Denies injury. VSS and up to date. 20G in left forearm. Blood collected/sent. Plan of care on going.
[2025-03-25 12:15] LABS: MANUAL DIFF FLAG NO
[2025-03-25 12:19] LABS: Basophils Percent Auto 0.2 % (0-2); Eosinophils Percent Auto 0.1 % (0-4); Hematocrit 42.2 % (42.0-52.0); Hemoglobin 14.8 g/dl (14.0-18.0); Imm Gran Abs Auto 0.06 X10*3/uL (0.00-0.03); Imm Gran Pct Auto 0.5 % (0.0-0.4); Lymphocytes Absolute Auto 2.5 X10*3/uL (1.2-4.9); Lymphocytes Percent Auto 18.9 % (20-40); Mean Corpuscular HGB Conc 35.1 g/dl (31.0-36.0); Mean Corpuscular Hemoglobin 30.8 pg (27.0-33.0); Mean Corpuscular Volume 87.7 fL (80.0-98.0); Mean Platelet Volume 8.9 fL (9.4-12.4); Monocytes Absolute Auto 0.6 X10*3/uL (0.1-1.2); Monocytes Percent Auto 4.6 % (2-11); Neutrophils Percent Auto 75.7 % (45-73); Platelet Count 263 X10*3/uL (160-400); Red Blood Count 4.81 X10*6/uL (4.60-5.80); Red Cell Distribution Width 13.7 % (11.0-16.0); White Blood Count 13.2 X10*3/uL (4.8-10.8)
[2025-03-25 12:33] LABS: Alanine Aminotransferase 29 U/L (0-40); Albumin Level 4.2 g/dL (3.5-5.0); Alkaline Phosphatase 71 U/L (39-117); Anion Gap 11 (12-20); Aspartate Amino Transferase 37 U/L (5-37); Bilirubin Direct 0.2 mg/dL (0.0-0.5); Bilirubin Total 0.5 mg/dL (0.0-1.0); Blood Urea Nitrogen 16 mg/dL (9-16); Calcium 9.2 mg/dL (8.4-10.2); Carbon Dioxide 19 mmol/L (22-29); Chloride 112 mmol/L (96-108); Creatinine Clr Calc Pharmacy 52.2; Estimated Glomerular Filt Rate 51; Glucose Random 92 mg/dL (60-115); Lipase 21 U/L (8-78); Potassium 3.9 mmol/L (3.3-5.1); Sodium 138 mmol/L (135-145); Total Protein 7.1 g/dL (6.5-8.0)
--- NOTE | 2025-03-25 12:37 | ED_ITS ---
HPI - Abdominal Pain General Chief Complaint: Abdominal Pain Stated Complaint: chills, fever, Vomiting Time Seen by Provider: 03/25/25 12:15 Source: patient Mode of arrival: ambulatory Limitations: no limitations History of Present Illness HPI narrative: This is a 59 years old the patient presented to the emergency department with 2 days' history of nausea vomiting and diarrhea poor p.o. intake. He has a history of fibromyalgia he has a history of rheumatoid arthritis. MD elicited complaint: abdominal pain Pertinent past history: other (Rheumatoid arthritis) Onset (ago): day(s) (2) Pain Consistency: constant Severity: moderate Quality: cramping Radiation: none Related Data Home Medications ?Medication ?Instructions ?Recorded ?Confirmed albuterol sulfate 90 mcg/actuation 2 puff inhalation Q6H PRN Wheezing 08/10/20 03/10/25 aerosol inhaler (ProAir HFA) buspirone 15 mg tablet 15 mg PO BID 10/27/21 03/10/25 cholecalciferol (vitamin D3) 50 50 mcg PO DAILY 08/05/22 03/10/25 mcg (2,000 unit) tablet epinephrine 0.3 mg/0.3 mL IM DIRECTED 08/05/22 03/10/25 injection, auto-injector pregabalin 225 mg capsule 225 mg PO BID 09/27/23 03/10/25 lidocaine 5 % topical patch 1 patch topical DAILY 08/16/24 03/10/25 atorvastatin 80 mg tablet 80 mg PO BEDTIME 12/12/24 03/10/25 triamcinolone acetonide 0.1 % appl topical DAILY 12/12/24 03/10/25 topical cream duloxetine 20 mg capsule,delayed 20 mg PO 01/16/25 03/10/25 release Previous Rx's ?Medication ?Instructions ?Recorded fluticasone 250 mcg-salmeterol 50 1 ea PO BID #60 ea 12/12/22 mcg/dose blistr powdr for inhalation (Advair Diskus) levothyroxine 88 mcg tablet 88 mcg PO DAILY #30 tabs 12/27/22 bumetanide 1 mg tablet 1 mg PO DAILY 30 days #30 tabs 10/05/23 sucralfate 100 mg/mL oral 10 ml PO BID #1,000 mL 04/15/24 suspension magnesium oxide 400 mg PO DAILY 90 days #90 tabs 07/09/24 diclofenac sodium 1 % topical gel 2 g topical QID #100 grams 07/29/24 (Voltaren Arthritis Pain) fluticasone propionate 50 1 spray intranasal DAILY #16 grams 07/29/24 mcg/actuation nasal spray,suspension nortriptyline 10 mg capsule 10 mg PO BEDTIME #30 caps 12/03/24 etanercept 50 mg/mL (1 mL) 50 mg subcut QWEEK #4 mL 12/30/24 subcutaneous pen injector (Enbrel [place]) azelastine 137 mcg (0.1 %) nasal 137 mcg (0.137 mL) intranasal BID 01/16/25 spray 30 days #8.22 mL riboflavin (vitamin B2) 400 mg 400 mg PO DAILY 90 days #90 tabs 01/16/25 tablet sumatriptan succinate 100 mg tablet 50 - 100 mg (0.5 - 1 x 100 mg) PO 01/16/25 .COMPLEX PRN migraine headache 30 days #12 tabs polyethylene glycol 3350 17 17 g PO BID #1,020 grams 01/20/25 gram/dose oral powder (ClearLax) atogepant 60 mg tablet (Qulipta) 60 mg PO DAILY 30 days #30 tabs 01/22/25 esomeprazole magnesium 40 mg 40 mg PO DAILY #90 caps 02/05/25 capsule,delayed release celecoxib 200 mg capsule (Celebrex) 200 mg PO BID PRN pain #90 caps 02/11/25 loratadine 10 mg tablet 10 mg PO DAILY #30 tabs 02/11/25 methocarbamol 500 mg tablet 500 mg PO BEDTIME 90 days #90 tabs 02/12/25 Allergies Allergy/AdvReac Type Severity Reaction Status Date / Time fremanezumab-vfrm Allergy Unknown Rash Verified 03/25/25 11:41 [From [email or web address] Autoinjector] Review of Systems Constitutional: Reports no additional constitutional complaints Reports system reviewed and no additional complaints, except as documented Reports system reviewed and no additional complaints, except as documented PMFSH Past Medical History Attestation statement: The following information was validated with the patient. 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 Venous congestion Pain in right lower leg Lipoma of scalp Kidney cysts Spondylosis of thoracic spine Spondylosis of lumbar spine Schatzki's ring Fatty liver HTN (hypertension) Pre-diabetes Dysphagia Asthma Hx of chest pain DAYNA on CPAP Hypothyroid Psoriasis Psoriatic arthritis Chronic pain Mood disorder Depression Avascular necrosis Chronic pain syndrome Spondylosis of lumbar region without myelopathy or radiculopathy Spondylosis, cervical Degeneration, intervertebral disc, cervical Surgical History History of back surgery History of surgery Status post excision of lipoma (~10/21/21) Status post cardiac catheterization Hx of cardiac cath H/O neck surgery Hx of hand surgery Hx of endoscopy History of colonoscopy Family History Family History Father Cirrhosis Alcoholism Mother Diabetes HTN (hypertension) Parkinson disease Brother Cirrhosis Alcoholism Social History Social History Household Members: Spouse and Children Are you a primary acute care clinical nurse specialist to a significant other at home: No Do you presently have visiting nurse or other home services: No Alcohol intake: never Patient Tobacco Use Status: Former Tobacco user Tobacco use type: Cigarette Smoked in Last 30 Days: No Second Hand Smoke Exposure: No Use of substances other than those prescribed or required for medical reasons: No Advance Directives: No Advance Directives Information Provided: Yes Do you have a plan to hurt others: No Plan Current occupational status: disabled Current occupation: rt handed Physical Exam ED Vital Signs: Vital Signs - 24 hr 03/25/25 11:39 03/25/25 11:52 03/25/25 12:50 Temperature 98.8 F 97.8 F Pulse Rate 106 H 100 Respiratory Rate 16 16 17 Blood Pressure 123/86 118/86 Pulse Oximetry 96 96 Oxygen Delivery Method Room Air Room Air 03/25/25 13:19 Temperature 98.7 F Pulse Rate 90 Respiratory Rate 16 Blood Pressure 126/75 Pulse Oximetry 95 Oxygen Delivery Method Room Air BMI result Body Mass Index 28.1 No acute distress looks well Const General: cooperative Nutritional Appearance: average body habitus Orientation/consciousness: patient oriented x3 Limitations: no limitations HENMT Head: Yes normal to inspection Ears: hearing grossly normal bilaterally Face and sinus: Yes normal facial exam Mouth: Normal oral and palatal mucosa present Neck Neck: Yes normal visual inspection Thyroid: Thyroid normal Resp Effort & Inspection: normal respiratory effort Auscultation: clear to auscultation bilaterally Cardio Jugular venous distension: no JVD Rate: regular rate Rhythm: regular rhythm GI Inspection: Yes normal to inspection Palpation (GI): Soft to palpation Percussion: Yes normal to percussion Skin General skin exam: no rashes or lesions noted Lesions: no lesions Rashes: no rashes Neuro General: patient oriented x3 Cranial nerves: Yes CN's II-XII intact bilaterally Course Reevaluation(s) Reevaluation #1: Patient was re-examined he is is feeling better however still complaining of nausea workup is completed now he has colitis by CT he has a an DB he has a metabolic acidosis we will admit IV fluid IV antibiotic Time: 15:45 Medical Decision Making Medical Decision Making [facility] Narrative: Patient presented to the emergency department complaining of nausea vomiting abdominal pain we will obtain CT labs Differential Diagnosis Differential Diagnoses: The differential diagnosis associated with the presentation includes Gastroenteritis versus small bowel obstruction versus colitis versus diverticulitis Admission/Observation Consideration of admission/observation: Escalation of care including admission/observation considered Consult Healthcare Provider Management of the patient was discussed with: Hospitalist Lab Data [facility] Lab Attestation statement: I reviewed the patient's lab results. 03/25/25 12:05 03/25/25 12:05 Labs: Lab Results 03/25/25 03/25/25 Range/Units 12:05 12:06 WBC 13.2 H (4.8-10.8) X10*3/uL RBC 4.81 (4.60-5.80) X10*6/uL Hgb 14.8 (14.0-18.0) g/dl Hct 42.2 (42.0-52.0) % MCV 87.7 (80.0-98.0) fL MCH 30.8 (27.0-33.0) pg MCHC 35.1 (31.0-36.0) g/dl RDW 13.7 (11.0-16.0) % Plt Count 263 (160-400) X10*3/uL MPV 8.9 L (9.4-12.4) fL Immature Gran % (Auto) 0.5 H (0.0-0.4) % Neut % (Auto) 75.7 H (45-73) % Lymph % (Auto) 18.9 L (20-40) % [place] % (Auto) 4.6 (2-11) % Eos % (Auto) 0.1 (0-4) % Baso % (Auto) 0.2 (0-2) % Lymph # (Auto) 2.5 (1.2-4.9) X10*3/uL [place] # (Auto) 0.6 (0.1-1.2) X10*3/uL Eos # (Auto) 0.0 (0.0-0.4) X10*3/uL Baso # (Auto) 0.0 (0.0-0.2) X10*3/uL Abs Immat Gran (auto) 0.06 H (0.00-0.03) X10*3/uL Absolute Neuts (auto) 10.0 H (2.0-8.3) x10*3/uL Absolute Nucleated RBC 0.000 (0.0-0.012) X10*3/uL Nucleated RBC % (auto) 0.0 (0.0-0.2) /100WBC Sodium 138 (135-145) mmol/L Potassium 3.9 (3.3-5.1) mmol/L Chloride 112 H (96-108) mmol/L Carbon Dioxide 19 L (22-29) mmol/L Anion Gap 11 L (12-20) BUN 16 (9-16) mg/dL Creatinine 1.42 H (0.5-1.4) mg/dL Estim Creat Clear Calc 52.2 Estimated GFR 51 Random Glucose 92 (60-115) mg/dL Calcium 9.2 (8.4-10.2) mg/dL Total Bilirubin 0.5 (0.0-1.0) mg/dL Direct Bilirubin 0.2 (0.0-0.5) mg/dL AST 37 (5-37) U/L ALT 29 (0-40) U/L Alkaline Phosphatase 71 (39-117) U/L Total Protein 7.1 (6.5-8.0) g/dL Albumin 4.2 (3.5-5.0) g/dL Lipase 21 (8-78) U/L Influenza Type A (PCR) NEGATIVE (Negative) Influenza Type B (PCR) NEGATIVE (Negative) RSV RNA Qual (PCR) NEGATIVE (Negative) SARS-CoV-2 RNA (RT-PCR) POSITIVE A (Negative) Independent Interpretation I performed an independent interpretation of an: CT Scan Radiology Impression Discussion of test interpretation with radiology: I have reviewed the radiologist's reading. Radiologist Impression: m or dissection, abdominal aorta. PELVIC VISCERA: Dystrophic calcifications without gross enlargement. Hyperdensities/calcifications, penile OSSEOUS STRUCTURES: Sclerotic marginated lytic abnormality in the left femoral head without gross volume loss. Multilevel thoracolumbar spondylosis without acute fracture or gross listhesis. Decreased intervertebral disc height at L5-S1. CT/CT abdomen pelvis w IV con IMPRESSION: Acute colitis without intestinal obstruction pattern nor abscesses or perforation. Inflammatory bowel disease cannot be excluded. Multifocal hepatic cystic lesions. Bosniak type I/type II cystic lesion, left kidney. Diverticular disease. Avascular necrosis, left femoral head, old. Fleischner guidelines were followed. Electronically signed by: Jakob Sibley MD 03/25/2025 02:33 PM EDT Independent Historian Clinical information obtained from an independent historian. History obtained from or confirmed by: Spouse Chronic Conditions Patient?s care impacted by: Other (RA with Embrel (immunosuppressive)) Medications Administered Generic Name Dose Route Start Last Admin Trade Name Freq PRN Reason Stop Dose Admin Sodium Chloride 1,000 mls @ 120 mls/hr 03/25/25 15:30 03/25/25 15:38 Ns IVCONT 120 mls/hr .Q8H20M AUREA Administration Discontinued Medications Generic Name Dose Route Start Last Admin Trade Name Freq PRN Reason Stop Dose Admin Fentanyl 50 mcg 03/25/25 12:35 03/25/25 12:50 Fentanyl Citrate/Pf 100 Mcg/2 Ml Vial IVPUSH 03/25/25 12:36 50 mcg ONCE ONE Administration Protocol Sodium Chloride 1,000 mls @ 999 mls/hr 03/25/25 12:45 03/25/25 14:02 Ns IVCONT 03/25/25 13:45 Infused .Q1H1M AUREA Infusion Iohexol 100 ml 03/25/25 14:20 03/25/25 14:21 Iohexol 350 Mg/Ml 100 Ml Infus..Btl IV 03/25/25 14:21 85 ml ONCE ONE Administration Ondansetron HCl 4 mg 03/25/25 12:35 03/25/25 12:49 Ondansetron Hcl 4 Mg/2 Ml Vial IVPUSH 03/25/25 12:36 4 mg ONCE ONE Administration Ondansetron HCl 4 mg 03/25/25 15:30 03/25/25 15:38 Ondansetron Hcl 4 Mg/2 Ml Vial IVPUSH 03/25/25 15:31 4 mg ONCE ONE Administration Discharge Plan Discharge Clinical Impression: Colitis, DB (acute kidney injury), Metabolic acidosis Abdominal pain Qualifiers: Abdominal location: generalized Qualified Code(s): R10.84 - Generalized abdominal pain Patient Disposition: Admitted As Inpatient Print Language: Belgian
[2025-03-25] MEDS: 0.9 % Sodium Chloride 1,000 ML 999 ML IVCONT (12:46)
[2025-03-25] MEDS: ondansetron HCL 4 MG/2 ML VIAL IVPUSH ×2 (12:49→15:38)
[2025-03-25] MEDS: fentaNYL citrate/PF 100 MCG/2 ML VIAL 50 MCG IVPUSH (12:50)
[2025-03-25 12:56] LABS: Influenza A PCR NEGATIVE (Negative); Influenza B PCR NEGATIVE (Negative); Resp Syncy Virus RNA Qual PCR NEGATIVE (Negative); SARS COV2 PCR INHOUSE POSITIVE (Negative)
--- OUTSIDE RECORDS SUMMARY | 2025-03-25 14:05 | XMS_ITS | Clinical Summary ---
Author Organization [facility] Address [address] [place] [address] Care Team Providers Care Silk Screen Painter Name Role Phone VuKoki Primary Care Provider [phone] Allergies No known active allergies Medications [...] reports he needs new TSH border for dial painter referal placed in previous appointment. Psoriatic arthritis [...] ne, 13 Valent 06/07/2019 Pneumococcal conjugate PCV20,polysaccharide DSV297 conjugate, adjuvant, PF (Prevnar 20) 02/01/2024 RSV, [...] 06/24/2024, , 07/02/2021, Additional history exists Insurance [employer] Care Teams Silk Screen Painter Relationship Specialty Start Date End Date Koki Vu [address] [place] [id number] PCP - General 12/26/23
[2025-03-25] MEDS: iohexoL 350 MG/ML 100 ML INFUS..BTL IV (14:21)
[2025-03-25] MEDS: 0.9 % Sodium Chloride 1,000 ML 120 ML IVCONT (15:38)
--- NOTE | 2025-03-25 15:42 | PC.NURSE ---
Patient covid +. precautions in place. CT abdomen/pelivc revealed acute colitis w/o obstruction. Patient currently running NaCl 1L @ 120. administered zofran, effectiveness pending.
--- NOTE | 2025-03-25 15:59 | P.HPHOSP_ITS ---
History of Present Illness Date of Service: 03/25/25 Chief Complaint: Abdominal pain 59-year-old man presented to the ER with complaints of 2 days of nausea, vomiting and diarrhea. Patient has had poor oral intake as well. He denied fever, chills, recent travel, sick contacts. He reports diffuse abdominal pain with diarrhea. The nausea is what seems to be bothering him the most. He was also noted to be positive for COVID but reports no respiratory symptoms. In the ED, Creat 1.42, WBC 13.2, abdominal CT showing acute colitis without intestinal obstruction, abscess or perforation. Inflammatory bowel disease can not be excluded, multiple hepatic cystic lesions, vital signs stable. Patient received 1 L of IV fluid, Zofran, fentanyl, Zofran and Cipro. Admitted for further management and treatment of acute colitis Review of Systems 2 Review of Systems: Denies any recent fever chills or decrease in appetite respiratory denies any shortness of breath or cough cardiovascular denied chest pain gastrointestinal see HPI genitourinary denies any dysuria frequency or hematuria musculoskeletal denies any joint pain or swelling neuropsych denies any weakness or seizures all other systems reviewed are negative [facility], LAT[facility] 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 Venous congestion Pain in right lower leg Lipoma of scalp Kidney cysts Spondylosis of thoracic spine Spondylosis of lumbar spine Schatzki's ring Fatty liver HTN (hypertension) Pre-diabetes Dysphagia Asthma Hx of chest pain DAYNA on CPAP Hypothyroid Psoriasis Psoriatic arthritis Chronic pain Mood disorder Depression Avascular necrosis Chronic pain syndrome Spondylosis of lumbar region without myelopathy or radiculopathy Spondylosis, cervical Degeneration, intervertebral disc, cervical Family History Father Cirrhosis Alcoholism Mother Diabetes HTN (hypertension) Parkinson disease Brother Cirrhosis Alcoholism Surgical History History of back surgery History of surgery Status post excision of lipoma (~10/21/21) Status post cardiac catheterization Hx of cardiac cath H/O neck surgery Hx of hand surgery Hx of endoscopy History of colonoscopy Social History Household Members: Spouse and Children Are you a primary geriatric personal care aide to a significant other at home: No Do you presently have visiting nurse or other home services: No Alcohol intake: never Patient Tobacco Use Status: Former Tobacco user Tobacco use type: Cigarette Smoked in Last 30 Days: No Second Hand Smoke Exposure: No Use of substances other than those prescribed or required for medical reasons: No Advance Directives: No Advance Directives Information Provided: Yes Do you have a plan to hurt others: No Plan Current occupational status: disabled Current occupation: rt handed Meds Allergies Allergy/AdvReac Type Severity Reaction Status Date / Time fremanezumab-vfrm Allergy Unknown Rash Verified 03/25/25 11:41 [From Aptible Autoinjector] Active Medications: Current Medications Ceftriaxone Sodium (Ceftriaxone Sodium 1 Gm Vial) 1 gm IVPUSH Q24H [facility] Sodium Chloride (Ns) 1,000 mls @ 120 mls/hr IVCONT .Q8H20M [facility] Last Admin: 03/25/25 15:38 Dose: 120 mls/hr Metronidazole (Flagyl) 500 mg in 100 mls @ 100 mls/hr IV Q8H [facility] Ciprofloxacin (Cipro) 400 mg in 200 mls @ 200 mls/hr IV ONCE ONE Stop: 03/25/25 16:34 Metronidazole (Flagyl) 500 mg in 100 mls @ 100 mls/hr IV ONCE ONE Stop: 03/25/25 16:35 Home Medications ?Medication ?Instructions ?Recorded ?Confirmed ?Last Taken ?Type buspirone 15 mg tablet 15 mg PO BID 10/27/21 03/10/25 07/08/22 07:00 History cholecalciferol (vitamin D3) 50 50 mcg PO DAILY 08/05/22 03/10/25 Unknown History mcg (2,000 unit) tablet epinephrine 0.3 mg/0.3 mL IM DIRECTED 08/05/22 03/10/25 Unknown History injection, auto-injector pregabalin 225 mg capsule 225 mg PO BID 09/27/23 03/10/25 Unknown History lidocaine 5 % topical patch 1 patch topical DAILY 08/16/24 03/10/25 Unknown History atorvastatin 80 mg tablet 80 mg PO BEDTIME 12/12/24 03/10/25 Unknown History triamcinolone acetonide 0.1 % appl topical DAILY 12/12/24 03/10/25 Unknown History topical cream duloxetine 20 mg capsule,delayed 20 mg PO BID 01/16/25 03/10/25 Unknown History release albuterol sulfate 90 mcg/actuation 2 puff inhalation Q4H PRN wheezing 03/25/25 Unknown History aerosol inhaler (Ventolin HFA) atogepant 60 mg tablet (Qulipta) 60 mg PO DAILY 03/25/25 Unknown History buspirone 10 mg tablet 10 mg PO TID 03/25/25 Unknown History escitalopram oxalate 20 mg tablet 20 mg PO BEDTIME 03/25/25 03/25/25 Unknown History etanercept 50 mg/mL (1 mL) 50 mg subcut QWEEK 03/25/25 Unknown History subcutaneous pen injector (Enbrel SureClick) fremanezumab-vfrm 225 mg/1.5 mL 1.5 mg subcut Q28D 03/25/25 03/25/25 Unknown History subcutaneous auto-injector (Ajovy) Physical Exam 2 Vital Signs and Narrative: Vital Signs: Last Vital Signs Temp 98.7 F 03/25/25 13:19 Pulse 90 03/25/25 13:19 Resp 16 03/25/25 13:19 BP 126/75 03/25/25 13:19 Pulse Ox 95 03/25/25 13:19 O2 Del Method Room Air 03/25/25 13:19 BMI result Body Mass Index 28.1 Appearing in no acute distress head is normocephalic atraumatic eyes pupils are PERRLA sclera is anicteric mouth throat mucous membranes are intact and moist neck is supple no lymphadenopathy, no JVD noted lung sounds are clear to auscultation heart regular rate rhythm, clear S1, S2 positive bowel sounds, abdomen is soft, nontender neuro patient is alert x3, no focal deficits Results Labs 03/25/25 12:05 03/25/25 12:05 Labs: Laboratory Results - last 24 hr 03/25/25 03/25/25 12:05 12:06 MCV 87.7 MCH 30.8 MCHC 35.1 RDW 13.7 Plt Count 263 MPV 8.9 L Immature Gran % (Auto) 0.5 H Neut % (Auto) 75.7 H Lymph % (Auto) 18.9 L [place] % (Auto) 4.6 Eos % (Auto) 0.1 Baso % (Auto) 0.2 Lymph # (Auto) 2.5 [place] # (Auto) 0.6 Eos # (Auto) 0.0 Baso # (Auto) 0.0 Abs Immat Gran (auto) 0.06 H Absolute Neuts (auto) 10.0 H Absolute Nucleated RBC 0.000 Nucleated RBC % (auto) 0.0 Anion Gap 11 L Estim Creat Clear Calc 52.2 Estimated GFR 51 Random Glucose 92 Calcium 9.2 Total Bilirubin 0.5 Direct Bilirubin 0.2 AST 37 ALT 29 Alkaline Phosphatase 71 Total Protein 7.1 Albumin 4.2 Lipase 21 Influenza Type A (PCR) NEGATIVE Influenza Type B (PCR) NEGATIVE RSV RNA Qual (PCR) NEGATIVE SARS-CoV-2 RNA (RT-PCR) POSITIVE A Imaging Radiologist's Impressions: Impressions Abdomen/Pelvis CT 03/25/25 13:01 IMPRESSION: Acute colitis without intestinal obstruction pattern nor abscesses or perforation. Inflammatory bowel disease cannot be excluded. Multifocal hepatic cystic lesions. Bosniak type I/type II cystic lesion, left kidney. Diverticular disease. Avascular necrosis, left femoral head, old. Fleischner guidelines were followed. Electronically signed by: Jakob Sibley MD 03/25/2025 02:33 PM EDT Assessment and Plan (1) Colitis: Status: Acute (2) DB (acute kidney injury): Status: Acute Plan 59-year-old man admitted with acute colitis Acute colitis Abdominal CT showing acute colitis without obstruction, abscess or perforation, inflammatory bowel disease can not be excluded [facility] consultation IV fluids Clear liquid diet for now DB likely from dehydration and poor po intake IV fluids monitor If no improvement consider Nephrology consultation COVID Asymptomatic Monitor HLD Hold statin Hypothyroidism continue levothyroxine Mental health continue home medications Chronic pain Follows outpatient pain Clinic, has pain pump Obstructive sleep apnea CPAP at bedtime DVT prophylaxis with Lovenox Full code Quality Stroke Does the patient have a stroke diagnosis?: No VTE Prior VTE?: No VTE Risk Level:: Medical - moderate - high VTE Device Contraindication: Treatment Not Indicated VTE Drug Contraindication: N/A - Med Ordered
[2025-03-25] MEDS: metroNIDAZOLE/NS 500 MG/100 ML PIGGYBACK 100 MG IV (16:42)
[2025-03-25] MEDS: cefTRIAXone sodium 1 GM VIAL IVPUSH (18:01)
[2025-03-25] MEDS: Enoxaparin Sodium 40 MG/0.4 ML SYRINGE SUBCUT (18:15)
[2025-03-25] MEDS: Ciprofloxacin Lactate/D5W 400 MG/200 ML PIGGYBACK 200 MG IV (18:51)
--- NOTE | 2025-03-25 19:09 | PHA.MEDREC ---
Addendum entered by Jose Almazan [facility] 03/25/25 19:28: Med rec reviewed Original Note: Pharmacy Consult ? Medication Reconciliation Pharmacy has completed the medication reconciliation. Spoke to patient and at bedside through community administrator service (Sujit) to confirm med list. had a list of patient medications with her. Patient states he is no longer taking Atorvastatin 80 mg, Azelastine 137 nasal spray, Bumetanide 1 mg, duloxetine 20 mg, Epinephrine 0.3 mg, Ajovy autoinjector 1.5 mg, Methocarbamol 500 mg, Nortriptyline 10 mg, and Triamcinolone aceton 0.1%. Patient confirmed Enbrel SureClick 50 mg every e, last dose 03/18/25. states patient hadn't had his medications in 2 days because he wasn't feeling well.
[2025-03-25] MEDS: Morphine Sulfate 4 MG/ML CARTRIDGE 3 MG IVPUSH (21:31)
--- NOTE | 2025-03-25 22:35 | PC.NURSE ---
This web content writer assumed care of this Pt at 1900. Pt A&Ox3, reports 04/17 ABD pain. Pt medicated per DEC with report of effectiveness. Pt ambulated to BR independently with steady gait.
[2025-03-26] VITALS (8 sets, daily range): BP systolic 107–122; BP diastolic 56–72; PULSE 61–76; RESP 18–20; TEMP 36–36.5; O2SAT 94–99
[2025-03-26] MEDS: 0.9 % Sodium Chloride 1,000 ML 120 ML IVCONT ×3 (00:04→22:08)
[2025-03-26 00:48] LABS: Appearance Urine Clear; Color Urine Yellow; Glucose Urine UA Negative (Negative); Leukocyte Esterase Urine Negative (Negative); Nitrite Urine Negative (Negative); PH 5.5 (5.0-9.0); Specific Gravity - Urine 1.025 (1.005-1.025); Urine Blood Negative (Negative); Urine Ketones 15 mg/dL (Negative); Urine Protein Trace mg/dL (Neg-Trace)
[2025-03-26 00:50] LABS: Bacteria Urine None Seen (None Seen); Hyaline Casts Urine 0-2 /LPF (0-2); RBC Urine 0-2 /HPF (0-2); Squamous Epithelial Cell Urine 0-2 /HPF (0-2); WBC Urine 0-5 /HPF (0-5)
[2025-03-26] MEDS: metroNIDAZOLE/NS 500 MG/100 ML PIGGYBACK 100 MG IV ×3 (02:10→17:48)
[2025-03-26] MEDS: Acetaminophen 325 MG TABLET 650 MG PO (02:54)
[2025-03-26 07:16] LABS: Hematocrit 36.9 % (42.0-52.0); Hemoglobin 12.3 g/dl (14.0-18.0); Mean Corpuscular HGB Conc 33.3 g/dl (31.0-36.0); Mean Corpuscular Hemoglobin 30.1 pg (27.0-33.0); Mean Corpuscular Volume 90.4 fL (80.0-98.0); Platelet Count 230 X10*3/uL (160-400); Red Blood Count 4.08 X10*6/uL (4.60-5.80); Red Cell Distribution Width 13.8 % (11.0-16.0); White Blood Count 8.8 X10*3/uL (4.8-10.8)
[2025-03-26 07:36] LABS: Alanine Aminotransferase 18 U/L (0-40); Albumin Level 3.3 g/dL (3.5-5.0); Alkaline Phosphatase 53 U/L (39-117); Aspartate Amino Transferase 24 U/L (5-37); Bilirubin Total 0.3 mg/dL (0.0-1.0); Blood Urea Nitrogen 12 mg/dL (9-16); Calcium 8.3 mg/dL (8.4-10.2); Creatinine Clr Calc Pharmacy 61.7; Estimated Glomerular Filt Rate > 60; Glucose Random 87 mg/dL (60-115); Total Protein 5.7 g/dL (6.5-8.0)
[2025-03-26 07:44] LABS: Anion Gap 10 (12-20); Carbon Dioxide 22 mmol/L (22-29); Chloride 114 mmol/L (96-108); Potassium 3.8 mmol/L (3.3-5.1); Sodium 142 mmol/L (135-145)
--- NOTE | 2025-03-26 08:39 | P.CNGI_ITS ---
History of Present Illness Data of Consult Service Date: 03/26/25 Primary Care Provider: Koki Vu MD HPI Reason for consult: colitis 59-year-old man w hx of spondylosis, hypothyroidism, psoriasis and arthropathy who I am seeing for assessment for colitis. Pt initially presented to the ER with complaints of 2-3 days of nausea, vomiting and greenish diarrhea without blood or melena assocaited also with poor appetite. He has noted 8-91/0 crampy diffuse abdominal pain, worse with food. He denied fever, chills, recent travel, sick contacts. No recent ABX treatments. No resp sx, denies cough, sputum, chest pain. IMAGING: right sided colonic edema and colitis, with stranding. hepatic and renal cysts. LABS: pos for covid, Creat 1.42, WBC 13.2, Review of Systems 2 Review of Systems: Constitutional : No Weight loss, No Fever, No Chills ENT/Mouth : No sore throat, No Rhinorrhea Eyes: No Swelling, No Redness Cardiovascular : No Chest Pain, No SOB, No Edema Respiratory : No Cough, No Sputum, No Wheezing Gastrointestinal : see HPI Genitourinary : NO Dysuria, No Urinary Frequency, No Hematuria, No Urgency Musculoskeletal : no joint pain, No Myalgias, No Joint Swelling Skin : No Skin Lesions, No rash Neuro : No Weakness, No Numbness, No Dizziness, No Headache Psych : No Anxiety/Panic, No Depression Heme/Lymph: No Bruising, No Lymphadenopathy Endocrine : No Polyuria, No Polydipsia All other systems reviewed and are negative. 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 Venous congestion Pain in right lower leg Lipoma of scalp Kidney cysts Spondylosis of thoracic spine Spondylosis of lumbar spine Schatzki's ring Fatty liver HTN (hypertension) Pre-diabetes Dysphagia Asthma Hx of chest pain DAYNA on CPAP Hypothyroid Psoriasis Psoriatic arthritis Chronic pain Mood disorder Depression Avascular necrosis Chronic pain syndrome Spondylosis of lumbar region without myelopathy or radiculopathy Spondylosis, cervical Degeneration, intervertebral disc, cervical Family History Family History Father Cirrhosis Alcoholism Mother Diabetes HTN (hypertension) Parkinson disease Brother Cirrhosis Alcoholism Surgical History Surgical History History of back surgery History of surgery Status post excision of lipoma (~10/21/21) Status post cardiac catheterization Hx of cardiac cath H/O neck surgery Hx of hand surgery Hx of endoscopy History of colonoscopy Social History Social History Household Members: Spouse and Children Housing: House Are you a primary nurse healthcare manager to a significant other at home: No Do you presently have visiting nurse or other home services: Yes Alcohol intake: never Patient Tobacco Use Status: Never used Tobacco Tobacco use type: Cigarette Second Hand Smoke Exposure: No Current occupational status: disabled Current occupation: rt handed Meds Allergies Allergy/AdvReac Type Severity Reaction Status Date / Time fremanezumab-vfrm (From Allergy Unknown Rash Verified 03/25/25 11:41 Ajovy Autoinjector) opiods Allergy Unknown Rash Uncoded 03/26/25 01:08 Active Medications: Current Medications Acetaminophen (Acetaminophen 325 Mg Tablet) 650 mg PO Q6H PRN PRN Reason: Pain, Mild 1-3,fever,headache Calcium Carbonate (Calcium Carbonate 750 Mg Tab.Chew) 750 mg PO Q4H PRN PRN Reason: Heartburn Ceftriaxone Sodium (Ceftriaxone Sodium 1 Gm Vial) 1 gm IVPUSH Q24H [facility] Last Admin: 03/25/25 18:01 Dose: 1 gm Enoxaparin Sodium (Enoxaparin Sodium 40 Mg/0.4 Ml Syringe) 40 mg SUBCUT Q24H [facility] Last Admin: 03/25/25 18:15 Dose: 40 mg Sodium Chloride (Ns) 1,000 mls @ 120 mls/hr IVCONT .Q8H20M [facility] Last Infusion: 03/26/25 02:10 Dose: 0 mls/hr Metronidazole (Flagyl) 500 mg in 100 mls @ 100 mls/hr IV Q8H [facility] Last Admin: 03/26/25 02:10 Dose: 100 mls/hr Lorazepam (Lorazepam 0.5 Mg Tablet) 0.5 mg PO Q8H PRN PRN Reason: Nausea and Vomiting Magnesium Hydroxide (Milk Of Magnesia 30 Ml Oral.Susp) 30 ml PO DAILY PRN PRN Reason: Constipation Melatonin (Melatonin 3 Mg Tablet) 6 mg PO BEDTIME PRN PRN Reason: Insomnia Metoclopramide HCl (Metoclopramide Hcl 10 Mg/2 Ml Vial) 10 mg IVPUSH Q4H PRN PRN Reason: Nausea and Vomiting Morphine Sulfate (Morphine Sulfate 4 Mg/Ml Cartridge) 3 mg IVPUSH Q3H PRN; Protocol PRN Reason: Pain, Severe (Pain Scale 7-10) Last Admin: 03/25/25 21:31 Dose: 3 mg Sodium Chloride (0.9 % Sodium Chloride Flush 3 Ml Syringe) 3 ml IVFLUSH QSHIFT [facility] Last Admin: 03/26/25 00:07 Dose: Not Given Home Medications ?Medication ?Instructions ?Recorded ?Confirmed ?Last Taken ?Type cholecalciferol (vitamin D3) 50 50 mcg PO DAILY 03/25/25 03/23/25 History mcg (2,000 unit) tablet pregabalin 225 mg capsule 225 mg PO BID 09/27/2303/2503/23/25 History lidocaine 5 % topical patch 1 patch topical DAILY PRN Pain 08/16/24 03/25/25 Unknown History albuterol sulfate 90 mcg/actuation 2 puff inhalation Q 4H PRN wheezing 03/25/25 03/25/25 03/23/25 History aerosol inhaler (Ventolin HFA) atogepant 60 mg tablet (Qulipta) 60 mg PO DAILY 03/25/25 03/23/25 History buspirone 10 mg tablet 10 mg PO TID 03/25/25 Unknown History diclofenac sodium 1 % topical gel 2 g topical QID PRN Pain 03/25/25 03/25/25 Unknown History (Voltaren Arthritis Pain) etanercept 50 mg/mL (1 mL) 50 mg subcut TU 03/25/2503/18/25 History subcutaneous pen injector (Enbrel SureClick) levothyroxine 88 mcg tablet 88 mcg PO DAILY@0600 03/2503/25/25 03/23/25 History polyethylene glycol 3350 17 17 g PO BID PRN Constipati on 03/25/25 03/25/25 Unknown History gram/dose oral powder (ClearLax) Physical Exam 2 Vital Signs: Vital Signs: Last Vital Signs Temp 97.3 F 03/26/25 07:10 Pulse 63 03/26/25 07:10 Resp 20 03/26/25 07:10 BP 122/60 03/26/25 07:10 Pulse Ox 98 03/26/25 07:10 O2 Del Method Room Air 03/26/25 07:10 BMI result Body Mass Index 28.1 EXAM: GENERAL: The patient is well developed and nontoxic. VITAL SIGNS:see workflow HEENT: Nonicteric sclerae, PERRLA, EOMI. Oropharynx clear. Moist mucous membranes. Conjunctivae appear well perfused. No thyroid mass. CHEST: Chest wall is nontender. HEART: Regular rate and rhythm without murmurs. LUNGS: Clear to auscultation bilaterally. ABDOMEN: Soft, positive bowel sounds, tender right sided abdomen, no organomegaly.no flank tenderness SKIN: No rash, no excessive bruising, petechiae, or purpura. NEUROLOGIC: Cranial nerves II-XII intact without motor/sensory deficit. Psych: normal affect Results Labs 03/26/25 06:43 03/26/25 06:43 Labs: Short CBC 03/25/25 03/26/25 Range/Units 12:05 06:43 WBC 13.2 H 8.8 (4.8-10.8) X10*3/uL Hgb 14.8 12.3 L (14.0-18.0) g/dl Hct 42.2 36.9 L (42.0-52.0) % Plt Count 263 230 (160-400) X10*3/uL BMP 03/25/25 03/26/25 12:05 06:43 Sodium 138 142 Potassium 3.9 3.8 Chloride 112 H 114 H Carbon Dioxide 19 L 22 BUN 16 12 Creatinine 1.42 H 1.20 Calcium 9.2 8.3 L D Liver Function 03/25/25 03/26/25 Range/Units 12:05 06:43 Total Bilirubin 0.5 0.3 (0.0-1.0) mg/dL Direct Bilirubin 0.2 (0.0-0.5) mg/dL AST 37 24 (5-37) U/L ALT 29 18 (0-40) U/L Alkaline Phosphatase 71 53 (39-117) U/L Albumin 4.2 3.3 L (3.5-5.0) g/dL Urine 03/25/25 Range/Units 21:16 Urine Color Yellow Urine Appearance Clear Urine pH 5.5 (5.0-9.0) Ur Specific [place] 1.025 (1.005-1.025) Urine Protein Trace (Neg-Trace) mg/dL Urine Glucose (UA) Negative (Negative) mg/dL Imaging CT scan - abdomen: Attestation: I personally reviewed and interpreted this imaging study as follows: (right sided colon with edema and stranding, liver and kidney cysts ) Assessment and Plan (1) Colitis: Status: Acute Plan 1/ Acute colitis, prob covid related colitis, maybe worse due to biologic therapy for his psoriasis PLAN: 1/ check c diff pcr, and stool pcr 2/ if neg or not improving then can consider paxlovid treatment 3./ cont with ABX as doing meantime 4/ if sx persist then colonsocopy Procedures Date of Service Date of Service: 03/26/25
[2025-03-26] MEDS: 0.9 % Sodium Chloride Flush 3 ML SYRINGE IVFLUSH ×2 (08:50→16:11)
[2025-03-26] MEDS: LORazepam 0.5 MG TABLET PO (08:51)
[2025-03-26] MEDS: Morphine Sulfate 4 MG/ML CARTRIDGE 3 MG IVPUSH (12:26)
[2025-03-26] MEDS: Metoclopramide HCl 10 MG/2 ML VIAL IVPUSH ×2 (12:27→20:27)
--- NOTE | 2025-03-26 13:14 | MHC.CM.PN ---
This CM spoke with pt with the assistance of a education diagnostician via [employer]. Pt lives at home with his and two sons. Pts will transport him home at discharge. Pt has GIFT SHOP CLERK services, and uses a cane, walker, and a CPAP machine. Pts will transport him home at discharge. PCP: Dr. Koki Vu
--- NOTE | 2025-03-26 13:40 | HO.PM.IMPN ---
Subjective Subjective Date of Service: 03/26/25 Interval History: Seen and examined this morning Follow-up for colitis, DB, COVID-19 I shortness and breath, no significant cough. Patient reports ongoing abdominal pain primarily right-sided with diarrhea, nonbloody Constitutional Constitutional: Denies chills and Denies fever(s) Physical Exam Vital Signs: Vital Signs: Last Vital Signs Temp 97.2 F 03/26/25 10:55 Pulse 65 03/26/25 10:55 Resp 20 03/26/25 10:55 BP 120/69 03/26/25 10:55 Pulse Ox 94 03/26/25 10:55 O2 Del Method Room Air 03/26/25 10:55 BMI result Body Mass Index 28.1 Const: General: cooperative, no acute distress, alert and awake Nutritional Appearance: average body habitus Orientation/consciousness: patient oriented x3 Resp: Effort & Inspection: normal respiratory effort, able to speak in complete sentences, no respiratory distress and no use of accessory muscles Auscultation: clear to auscultation bilaterally Cardio: Rate: regular rate GI: Inspection: No distended Palpation (GI): Soft to palpation Neuro: General: patient oriented x3, moves all extremities and CN's II-XI intact bilaterally Objective Data Active Medications Acetaminophen (Acetaminophen 325 Mg Tablet) 650 mg PO Q6H PRN PRN Reason: Pain, Mild 1-3,fever,headache Calcium Carbonate (Calcium Carbonate 750 Mg Tab.Chew) 750 mg PO Q4H PRN PRN Reason: Heartburn Ceftriaxone Sodium (Ceftriaxone Sodium 1 Gm Vial) 1 gm IVPUSH Q24H [facility] Last Admin: 03/25/25 18:01 Dose: 1 gm Documented By: CORRIE Enoxaparin Sodium (Enoxaparin Sodium 40 Mg/0.4 Ml Syringe) 40 mg SUBCUT Q24H [facility] Last Admin: 03/25/25 18:15 Dose: 40 mg Documented By: CORRIE Sodium Chloride (Ns) 1,000 mls @ 120 mls/hr IVCONT .Q8H20M [facility] Last Infusion: 03/26/25 12:31 Dose: 120 mls/hr Documented By: GLENNA Metronidazole (Flagyl) 500 mg in 100 mls @ 100 mls/hr IV Q8H [facility] Last Infusion: 03/26/25 10:25 Dose: Infused Documented By: GLENNA Lorazepam (Lorazepam 0.5 Mg Tablet) 0.5 mg PO Q8H PRN PRN Reason: Nausea and Vomiting Last Admin: 03/26/25 08:51 Dose: 0.5 mg Documented By: GLENNA Magnesium Hydroxide (Milk Of Magnesia 30 Ml Oral.Susp) 30 ml PO DAILY PRN PRN Reason: Constipation Melatonin (Melatonin 3 Mg Tablet) 6 mg PO BEDTIME PRN PRN Reason: Insomnia Metoclopramide HCl (Metoclopramide Hcl 10 Mg/2 Ml Vial) 10 mg IVPUSH Q4H PRN PRN Reason: Nausea and Vomiting Last Admin: 03/26/25 12:27 Dose: 10 mg Documented By: GLENNA Morphine Sulfate (Morphine Sulfate 4 Mg/Ml Cartridge) 3 mg IVPUSH Q3H PRN; Protocol PRN Reason: Pain, Severe (Pain Scale 7-10) Last Admin: 03/26/25 12:26 Dose: 3 mg Documented By: GLENNA Sodium Chloride (0.9 % Sodium Chloride Flush 3 Ml Syringe) 3 ml IVFLUSH [facility] Last Admin: 03/26/25 08:50 Dose: 3 ml Documented By: GLENNA Labs 03/26/25 06:43 03/26/25 06:43 Labs: Laboratory Results - last 24 hr 03/25/25 03/26/25 21:16 06:43 MCV 90.4 MCH 30.1 MCHC 33.3 RDW 13.8 Plt Count 230 MPV 9.0 L Absolute Nucleated RBC 0.000 Nucleated RBC % (auto) 0.0 Anion Gap 10 L Estim Creat Clear Calc 61.7 Estimated GFR > 60 Random Glucose 87 Calcium 8.3 L D Total Bilirubin 0.3 AST 24 ALT 18 Alkaline Phosphatase 53 Total Protein 5.7 L Albumin 3.3 L Urine Color Yellow Urine Appearance Clear Urine pH 5.5 Ur Specific [place] 1.025 Urine Protein Trace Urine Glucose (UA) Negative Urine Ketones 15 Urine Blood Negative Urine Nitrite Negative Ur Leukocyte Esterase Negative Urine RBC 0-2 Urine WBC 0-5 Ur Squamous Epith Cells 0-2 Urine Bacteria None Seen Hyaline Casts 0-2 Assessment and Plan (1) Colitis: Status: Acute Plan This is a 59-year-old man admitted with acute colitis Acute colitis No sepsis Abdominal CT showing acute colitis without obstruction, abscess or perforation, inflammatory bowel disease can not be excluded Continue IV Rocephin and Flagyl GI consultation- C diff, GI panel pending IV fluids Clear liquid diet for now, advance as tolerated DB resolved with IVF COVID Asymptomatic. No hypoxia Monitor Hypothyroidism continue levothyroxine Mental health continue home medications Chronic pain Follows outpatient pain Clinic, has nerve stimulator Continue pregabalin, Lidoderm patch Psoriasis Hold Enbrel Obstructive sleep apnea CPAP at bedtime DVT prophylaxis with Lovenox Full code Quality Stroke Does the patient have a stroke diagnosis?: No VTE Prior VTE?: No VTE Risk Level:: Medical - moderate - high VTE Device Contraindication: Treatment Not Indicated VTE Drug Contraindication: N/A - Med Ordered
[2025-03-26] MEDS: Enoxaparin Sodium 40 MG/0.4 ML SYRINGE SUBCUT (16:10)
[2025-03-26] MEDS: cefTRIAXone sodium 1 GM VIAL IVPUSH (16:10)
[2025-03-26] MEDS: busPIRone HCl 10 MG TABLET PO ×2 (16:11→20:27)
[2025-03-26] MEDS: Sucralfate Oral Suspension 1 GM/10 ML ORAL.SUSP PO (20:27)
[2025-03-26] MEDS: Pregabalin 75 MG CAPSULE 225 MG PO (20:27)
[2025-03-27] VITALS (7 sets, daily range): BP systolic 108–150; BP diastolic 64–90; PULSE 60–80; RESP 16–20; TEMP 36.2–37.2; O2SAT 95–99
[2025-03-27] MEDS: metroNIDAZOLE/NS 500 MG/100 ML PIGGYBACK 100 MG IV ×2 (00:30→08:40)
[2025-03-27] MEDS: Levothyroxine Sodium 88 MCG TABLET PO (05:06)
[2025-03-27] MEDS: 0.9 % Sodium Chloride 1,000 ML 120 ML IVCONT (06:08)
[2025-03-27 07:24] LABS: Blood Urea Nitrogen 7 mg/dL (9-16); Creatinine Clr Calc Pharmacy 59.7; Estimated Glomerular Filt Rate 59; Glucose Random 94 mg/dL (60-115)
[2025-03-27 07:32] LABS: Anion Gap 11 (12-20); Calcium 8.6 mg/dL (8.4-10.2); Carbon Dioxide 24 mmol/L (22-29); Chloride 114 mmol/L (96-108); Potassium 4.6 mmol/L (3.3-5.1); Sodium 144 mmol/L (135-145)
[2025-03-27] MEDS: Fluticasone/Vilanterol 100/25 BLST.W.DEV 1 PUFF INHALE (08:17)
[2025-03-27] MEDS: Pregabalin 75 MG CAPSULE 225 MG PO ×2 (08:41→22:12)
[2025-03-27] MEDS: Magnesium Oxide 400 MG TABLET PO (08:41)
[2025-03-27] MEDS: Omeprazole 20 MG CAPSULE.DR PO (08:41)
[2025-03-27] MEDS: Sucralfate Oral Suspension 1 GM/10 ML ORAL.SUSP PO ×2 (08:41→22:12)
[2025-03-27] MEDS: Cholecalciferol (Vitamin D3) 25 MCG TABLET 50 MCG PO (08:41)
[2025-03-27] MEDS: Loratadine 10 MG TABLET PO (08:41)
[2025-03-27] MEDS: 0.9 % Sodium Chloride Flush 3 ML SYRINGE IVFLUSH ×2 (08:42→14:42)
[2025-03-27] MEDS: busPIRone HCl 10 MG TABLET PO ×3 (08:42→22:12)
[2025-03-27 12:00] LABS: CDiff Gene PCR NEGATIVE (Negative)
--- NOTE | 2025-03-27 12:35 | P.PNIM_ITS ---
Subjective Subjective Date of Service: 03/27/25 Interval History: Seen and examined this morning Follow-up for colitis Abdominal pain slowly improving, still having some diarrhea Review of Systems Review of Systems: Yes all other systems are reviewed and are negative Constitutional Constitutional: Denies chills and Denies fever(s) Cardiovascular Cardiovascular: Denies chest pain, Denies palpitations and Denies dyspnea Respiratory Respiratory: Denies cough and Denies dyspnea Gastrointestinal Gastrointestinal: Denies abdominal pain Endocrine Endocrine: Denies palpitations Physical Exam 2 Vital Signs: Vital Signs: Last Vital Signs Temp 97.1 F 03/27/25 11:05 Pulse 80 03/27/25 11:05 Resp 20 03/27/25 11:05 BP 128/78 03/27/25 11:05 Pulse Ox 97 03/27/25 11:05 O2 Del Method Room Air 03/27/25 11:05 BMI result Body Mass Index 28.1 Const: General: cooperative, no acute distress, alert and awake Nutritional Appearance: average body habitus Orientation/consciousness: patient oriented x3 Resp: Effort & Inspection: normal respiratory effort, able to speak in complete sentences, no respiratory distress and no use of accessory muscles A uscultation: clear to auscultation bilaterally Cardio: Rate: regular rate GI: Inspection: No distended Palpation (GI): Soft to palpation Neuro: General: patient oriented x3, moves all extremities and CN's II-XI intact bilaterally Objective Data Active Medications Acetaminophen (Acetaminophen 325 Mg Tablet) 650 mg PO Q6H PRN PRN Reason: Pain, Mild 1-3,fever,headache Albuterol Sulfate (Albuterol Sulfate 90 Mcg 8 Gm Inhaler) 2 puff INHALE Q4H PRN PRN Reason: Wheezing Buspirone HCl (Buspirone Hcl 10 Mg Tablet) 10 mg PO TID [facility] Last Admin: 03/27/25 08:42 Dose: 10 mg Documented By: MICH Calcium Carbonate (Calcium Carbonate 750 Mg Tab.Chew) 750 mg PO Q4H PRN PRN Reason: Heartburn Ceftriaxone Sodium (Ceftriaxone Sodium 1 Gm Vial) 1 gm IVPUSH Q24H [facility] Last Admin: 03/26/25 16:10 Dose: 1 gm Documented By: GLENNA Enoxaparin Sodium (Enoxaparin Sodium 40 Mg/0.4 Ml Syringe) 40 mg SUBCUT Q24H [facility] Last Admin: 03/26/25 16:10 Dose: 40 mg Documented By: GLENNA Fluticasone Propionate (Fluticasone Propionate Nasal 16 Gm [place]) 1 spray NOSTRIL-B DAILY [facility] Fluticasone/Vilanterol (Fluticasone/Vilanterol 100/25 Blst.W.Dev) 1 puff INHALE RDAILY [facility] Last Admin: 03/27/25 08:17 Dose: 1 puff Documented By: ANDREIA Metronidazole (Flagyl) 500 mg in 100 mls @ 100 mls/hr IV Q8H [facility] Last Infusion: 03/27/25 09:40 Dose: Infused Documented By: MICH Levothyroxine Sodium (Levothyroxine Sodium 88 Mcg Tablet) 88 mcg PO DAILY@0600 [facility] Last Admin: 03/27/25 05:06 Dose: 88 mcg Documented By: ALTON Lidocaine (Lidocaine 4 % Patch Adh..Patch) 1 patch TRANSDERMA DAILY PRN PRN Reason: Pain Loratadine (Loratadine 10 Mg Tablet) 10 mg PO DAILY [facility] Last Admin: 03/27/25 08:41 Dose: 10 mg Documented By: MICH Lorazepam (Lorazepam 0.5 Mg Tablet) 0.5 mg PO Q8H PRN PRN Reason: Nausea and Vomiting Last Admin: 03/26/25 08:51 Dose: 0.5 mg Documented By: GLENNA Magnesium Hydroxide (Milk Of Magnesia 30 Ml Oral.Susp) 30 ml PO DAILY PRN PRN Reason: Constipation Magnesium Oxide (Magnesium Oxide 400 Mg Tablet) 400 mg PO DAILY [facility] Last Admin: 03/27/25 08:41 Dose: 400 mg Documented By: MICH Melatonin (Melatonin 3 Mg Tablet) 6 mg PO BEDTIME PRN PRN Reason: Insomnia Metoclopramide HCl (Metoclopramide Hcl 10 Mg/2 Ml Vial) 10 mg IVPUSH Q4H PRN PRN Reason: Nausea and Vomiting Last Admin: 03/26/25 20:27 Dose: 10 mg Documented By: ALTON Morphine Sulfate (Morphine Sulfate 4 Mg/Ml Cartridge) 3 mg IVPUSH Q3H PRN; Protocol PRN Reason: Pain, Severe (Pain Scale 7-10) Last Admin: 03/26/25 12:26 Dose: 3 mg Documented By: GLENNA Non-Formulary Medication (Diclofenac Sodium [Voltaren Arthritis Pain]) 2 gm TOPICAL QID PRN PRN Reason: Pain Non-Formulary Medication (Atogepant [Qulipta]) 60 mg PO DAILY [facility] Omeprazole (Omeprazole 20 Mg Capsule.Dr) 20 mg PO DAILY [facility] Last Admin: 03/27/25 08:41 Dose: 20 mg Documented By: MICH Polyethylene Glycol (Polyethylene Glycol 3350 17 Gm Powd.Pack) 17 gm PO BID PRN PRN Reason: Constipation Pregabalin (Pregabalin 75 Mg Capsule) 225 mg PO BID [facility] Last Admin: 03/27/25 08:41 Dose: 225 mg Documented By: MICH Sodium Chloride (0.9 % Sodium Chloride Flush 3 Ml Syringe) 3 ml IVFLUSH QSHIFT [facility] Last Admin: 03/27/25 08:42 Dose: 3 ml Documented By: MICH Sucralfate (Sucralfate Oral Suspension 1 Gm/10 Ml Oral.Susp) 1 gm PO BID [facility] Last Admin: 03/27/25 08:41 Dose: 1 gm Documented By: MICH Vitamin D (Cholecalciferol (Vitamin D3) 25 Mcg Tablet) 50 mcg PO DAILY [facility] Last Admin: 03/27/25 08:41 Dose: 50 mcg Documented By: MICH Labs 03/26/25 06:43 03/27/25 06:34 Labs: Laboratory Results - last 24 hr 03/27/25 03/27/25 06:34 10:57 Anion Gap 11 L Estim Creat Clear Calc 59.7 Estimated GFR 59 Random Glucose 94 Calcium 8.6 C. difficile Tox B Gene NEGATIVE Microbiology Microbiology Results: Microbiology 03/25/25 16:20 Blood Culture - Preliminary Blood - Venous No growth after 24 hours. 03/25/25 16:25 Blood Culture - Preliminary Blood - Venous No growth after 24 hours. Assessment and Plan (1) Colitis: Status: Acute Plan This is a 59-year-old man admitted with acute colitis Acute colitis No sepsis Abdominal CT showing acute colitis without obstruction, abscess or perforation, inflammatory bowel disease can not be excluded Continue IV Rocephin and Flagyl GI consultation- C diff negative, GI panel pending Advance to full liquids DB resolved with IVF COVID Asymptomatic. No hypoxia Monitor Hypothyroidism continue levothyroxine Mental health continue home medications Chronic pain Follows outpatient pain Clinic, has nerve stimulator Continue pregabalin, Lidoderm patch Psoriasis Hold Enbrel Obstructive sleep apnea CPAP at bedtime DVT prophylaxis with Lovenox Full code Quality Stroke Does the patient have a stroke diagnosis?: No VTE Prior VTE?: No VTE Risk Level:: Medical - moderate - high VTE Device Contraindication: Treatment Not Indicated VTE Drug Contraindication: N/A - Med Ordered
[2025-03-27 12:51] LABS: Adenovirus F 40/41 Not Detected (Not Detect.); Astrovirus Not Detected (Not Detect.); Cryptosporidium Not Detected (Not Detect.); Cyclospora cayetanensis Not Detected (Not Detect.); E. coli EAEC Not Detected (Not Detect.); E. coli EPEC Not Detected (Not Detect.); E. coli ETEC Not Detected (Not Detect.); E. coli STEC Not Detected (Not Detect.); Entamoeba histolytica Not Detected (Not Detect.); Giardia lamblia Not Detected (Not Detect.); Norovirus GI/GII Not Detected (Not Detect.); Plesiomonas shigelloides Not Detected (Not Detect.); Rotavirus A Not Detected (Not Detect.); Salmonella Not Detected (Not Detect.); Sapovirus Not Detected (Not Detect.); Shigella sp./EIEC Not Detected (Not Detect.); Vibrio Not Detected (Not Detect.); Vibrio Cholerae Not Detected (Not Detect.); Yersinia enterocolitica Not Detected (Not Detect.)
[2025-03-27 13:27] LABS: Campylobacter Detected (Not Detect.)
[2025-03-27] MEDS: Azithromycin 500 MG in 0.9 % Sodium Chloride 250 ML 125 MG IV (14:42)
[2025-03-27] MEDS: Morphine Sulfate 4 MG/ML CARTRIDGE 3 MG IVPUSH (14:49)
[2025-03-27] MEDS: Enoxaparin Sodium 40 MG/0.4 ML SYRINGE SUBCUT (15:18)
[2025-03-28 03:21] VITALS: BP 148/72; PULSE 53; RESP 18; TEMP 36.7; O2SAT 98
[2025-03-28] MEDS: Levothyroxine Sodium 88 MCG TABLET PO (05:31)
[2025-03-28 07:23] VITALS: BP 161/78; PULSE 60; RESP 20; TEMP 36.9; O2SAT 95
[2025-03-28] MEDS: busPIRone HCl 10 MG TABLET PO (08:27)
[2025-03-28] MEDS: 0.9 % Sodium Chloride Flush 3 ML SYRINGE IVFLUSH (08:27)
[2025-03-28] MEDS: Pregabalin 75 MG CAPSULE 225 MG PO (08:27)
[2025-03-28] MEDS: Loratadine 10 MG TABLET PO (08:27)
[2025-03-28] MEDS: Cholecalciferol (Vitamin D3) 25 MCG TABLET 50 MCG PO (08:27)
[2025-03-28] MEDS: Magnesium Oxide 400 MG TABLET PO ×2 (08:27→08:33)
[2025-03-28] MEDS: Fluticasone/Vilanterol 100/25 BLST.W.DEV 1 PUFF INHALE (08:30)
[2025-03-28 08:31] VITALS: PULSE 75; RESP 20; O2SAT 96
[2025-03-28] MEDS: Sucralfate Oral Suspension 1 GM/10 ML ORAL.SUSP PO (08:41)
[2025-03-28] MEDS: Omeprazole 20 MG CAPSULE.DR PO (08:42)
[2025-03-28 09:25] LABS: Blood Urea Nitrogen 4 mg/dL (9-16); Creatinine Clr Calc Pharmacy 60.7; Estimated Glomerular Filt Rate > 60; Glucose Random 100 mg/dL (60-115)
[2025-03-28 09:36] LABS: Anion Gap 10 (12-20); Calcium 9.7 mg/dL (8.4-10.2); Carbon Dioxide 27 mmol/L (22-29); Chloride 108 mmol/L (96-108); Potassium 4.4 mmol/L (3.3-5.1); Sodium 141 mmol/L (135-145)
--- NOTE | 2025-03-28 11:08 | MHC.CM.PN ---
ANTIC PT WILL BE MEDICALLY CLEARED FOR DC HOME SELF CARE IF TOLERATES DIET, PT WILL ARRANGE TRANSPORT.
[2025-03-28 11:12] VITALS: BP 120/75; PULSE 63; RESP 18; TEMP 36.3; O2SAT 96
--- NOTE | 2025-03-28 13:22 | P.DS_ITS ---
DS: Providers Provider Date of Service: 03/28/25 Date of admission: 03/25/25 15:32 Date of discharge: 03/28/25 Primary care physician: Koki Vu MD Consults: 03/25/25 15:59 Consult to Gastroenterology Routine Consulting Provider: Kolby Nelson Reason for consultation: colitis Attending physician on discharge: [facility] Discharging clinician: Debi Navarro DS: Diagnosis Discharge Diagnosis (1) Colitis: Status: Acute DS: Summary Hospital Course Hospital Course: From H&P on the day of admission 59-year-old man presented to the ER with complaints of 2 days of nausea, vomiting and diarrhea. Patient has had poor oral intake as well. He denied fever, chills, recent travel, sick contacts. He reports diffuse abdominal pain with diarrhea. The nausea is what seems to be bothering him the most. He was also noted to be positive for COVID but reports no respiratory symptoms. In the ED, Creat 1.42, WBC 13.2, abdominal CT showing acute colitis without intestinal obstruction, abscess or perforation. Inflammatory bowel disease can not be excluded, multiple hepatic cystic lesions, vital signs stable. Patient received 1 L of IV fluid, Zofran, fentanyl, Zofran and Cipro. Admitted for further management and treatment of acute colitis Acute colitis No sepsis Abdominal CT showing acute colitis without obstruction, abscess or perforation, inflammatory bowel disease can not be excluded. Initially treated with IV Rocephin and Flagyl. C diff negative, GI panel was sent and was positive for Campylobacter. Antibiotics were changed to azithromycin. WBC count resolved. Remained afebrile. Abdominal pain and diarrhea improved, diet was advanced and he is currently tolerating a regular diet. He is eager to return home. DB resolved with IVF. COVID 19 Asymptomatic. No hypoxia. Time Attestation Discharge Coordination Time (in mins): 35 Quality: Safe Use of Opioids Does Pt have an Active Cancer Diagnosis on the Problem List?: No Quality: Stroke Does the patient have a stroke diagnosis?: No Physical Exam Vital Signs: Vital Signs: Last Vital Signs Temp 97.3 F 03/28/25 11:12 Pulse 63 03/28/25 11:12 Resp 18 03/28/25 11:12 BP 120/75 03/28/25 11:12 Pulse Ox 96 03/28/25 11:12 O2 Del Method Room Air 03/28/25 11:12 BMI result Body Mass Index 28.1 Const: General: cooperative, no acute distress, alert and awake Nutritional Appearance: average body habitus Orientation/consciousness: patient oriented x3 Resp: Effort & Inspection: normal respiratory effort, able to speak in complete sentences, no respiratory distress and no use of accessory muscles Auscultation: clear to auscultation bilaterally Cardio: Rate: regular rate GI: Inspection: No distended Palpation (GI): Soft to palpation Neuro: General: patient oriented x3, moves all extremities and CN's II-XI intact bilaterally DS: Data Data Completed and Pending Labs on day of discharge: Laboratory Results - last 24 hr 03/27/25 03/28/25 10:57 08:58 Sodium 141 Potassium 4.4 Chloride 108 Carbon Dioxide 27 Anion Gap 10 L BUN 4 L Creatinine 1.22 Estim Creat Clear Calc 60.7 Estimated GFR > 60 Random Glucose 100 Calcium 9.7 D Stl C. cayetanensis PCR Not Detected Stool Rotavirus A PCR Not Detected Stl Adenov F 40/41 PCR Not Detected Stool Astrovirus (PCR) Not Detected Stool Campylobacter PCR Detected A Stool Cryptosporidium PCR Not Detected Stl Sh Tox Pr E STEC PCR Not Detected Stool E coli O157 PCR Not applicable Stl Enterotoxigenic E PCR Not Detected Stool EPEC (PCR) Not Detected Stool EAEC (PCR) Not Detected Stl E. histolytica PCR Not Detected Stool Giardia Lamblia PCR Not Detected Stl P. shigelloides PCR Not Detected Stool Salmonella PCR Not Detected Stool Sapovirus (PCR) Not Detected Stl Shigella/EIEC PCR Not Detected St Y.enterocolitica PCR Not Detected Stool Vibrio (PCR) Not Detected Stl Vibrio cholerae PCR Not Detected Stl Norovirus GI/GII PCR Not Detected Preliminary micro results at discharge 03/25/25 16:20 Blood Culture - Preliminary Blood - Venous No growth after 48 hours. 03/25/25 16:25 Blood Culture - Preliminary Blood - Venous No growth after 48 hours. Discharge Plan Discharge Anticipated Discharge Date/Time: 03/28/25 13:26 Patient Disposition: Home, Self-Care Discharge Diagnosis: colitis due to campylobacter Referrals: Koki Vu MD [Primary Care Provider, Medical] - 1 Week Discharge Medications: New azithromycin 500 mg tablet 500 mg PO DAILY 3 Days Qty: 3 0RF Continued fluticasone propion-salmeterol [Advair Diskus] 250-50 mcg/dose blister with device 1 ea PO BID Qty: 60 6RF esomeprazole magnesium 40 mg capsule,delayed release(DR/EC) 40 mg PO DAILY Qty: 90 1RF loratadine 10 mg tablet 10 mg PO DAILY Qty: 30 3RF celecoxib [Celebrex] 200 mg capsule 200 mg PO BID PRN (Reason: pain) Qty: 90 1RF buspirone 10 mg tablet 10 mg PO TID Rx Instructions: TAKE 1 TABLET BY MOUTH THREE TIMES DAILY DIRECTED 20 MINUTES BEFORE MEALS albuterol sulfate [Ventolin HFA] 90 mcg/actuation HFA aerosol inhaler 2 puff INHALATION Q4H PRN (Reason: wheezing) Enbrel SureClick 50 mg/mL (1 mL) pen injector 50 mg subcut TU Qulipta 60 mg tablet 60 mg PO DAILY polyethylene glycol 3350 [ClearLax] 17 gram/dose powder 17 g PO BID PRN (Reason: Constipation) diclofenac sodium [Voltaren Arthritis Pain] 1 % gel 2 g topical QID PRN (Reason: Pain) Rx Instructions: apply to single elbow, wrist or hand; for hand includes palm/fingers/back of hand apply to shoudler and neck levothyroxine 88 mcg tablet 88 mcg PO DAILY@0600 cholecalciferol (vitamin D3) 50 mcg (2,000 unit) tablet 50 mcg PO DAILY lidocaine 5 % adhesive patch,medicated 1 patch topical DAILY PRN (Reason: Pain) Rx Instructions: leave on most painful area for up to 12 hrs pregabalin 225 mg capsule 225 mg PO BID sucralfate 100 mg/mL suspension 10 ml PO BID Qty: 1000 1RF magnesium oxide 400 mg magnesium tablet 400 mg PO DAILY 90 Days Qty: 90 1RF fluticasone propionate 50 mcg/actuation spray,suspension 1 spray intranasal DAILY Qty: 16 2RF Rx Instructions: administer into each nostril riboflavin (vitamin B2) 400 mg tablet 400 mg PO DAILY 90 Days Qty: 90 1RF sumatriptan succinate 100 mg tablet 50 - 100 mg PO .COMPLEX PRN (Reason: migraine headache) 30 Days Qty: 12 6RF Rx Instructions: 50 - 100 mg orally at onset of headache, may repeat in 2 hrs PRN; max 2 tabs per day or 4 tabs/week (may take with Tylenol) Discharge Orders: Discharge Order (Routine); Ordered 03/28/25 Ordered By: Debi Navarro Activity on Discharge: As tolerated Stand Alone Forms: Patient Portal Discharge page Print Language: Ivorian Care Plan Goals: See below Health Concerns: Colitis due to Campylobacter COVID-19 Plan of Treatment: Complete 3 more days of oral antibiotics No specific treatment required for COVID-19, no hypoxia Outpatient follow-up with PCP as needed Assessment: See discharge summary
== END 2025-03-28 15:00 | disposition home or self-care (01) | DRG 248 ==
LOC: HO.ED 15:43 → HO.EDOVER 16:00 → HO.S3 19:48 → HO.EDOVER 19:56 → HO.IMC 23:20
PROVIDERS: Internal Medicine Gastroenterology; Nurse Practitioner Acute Care; Physician Assistant; Admitting Provider Student in an Organized Health Care Education/Training Program; Emergency Provider Emergency Medicine; PCP Family Medicine; Visit Provider Physician Assistant Medical
DX: A04.5 Campylobacter enteritis (principal); U07.1 COVID-19; N17.9 Acute kidney failure, unspecified; L40.50 Arthropathic psoriasis, unspecified; E78.5 Hyperlipidemia, unspecified; E03.9 Hypothyroidism, unspecified; G47.33 Obstructive sleep apnea (adult) (pediatric); E86.0 Dehydration; G89.29 Other chronic pain; Z96.82 Presence of neurostimulator; Z79.51 Long term (current) use of inhaled steroids; Z79.620 Long term (current) use of immunosuppressive biologic; Z79.890 Hormone replacement therapy; Z79.899 Other long term (current) drug therapy
CPT/HCPCS: 0241U; 36415; 74177; 80048; 80053; 80076; 81001; 83690; 85025; 85027; 87040; 87493; 87507; 99285; J0456; J0696; J0744; J1650; J1836; J2270; J2405; J2765; J3010; Q9967

== ENCOUNTER → 2025-03-25 12:36 | Outpatient (BNV) | payer MEDICAID, SELFPAY | PROVIDERS: Emergency Provider Emergency Medicine; PCP Family Medicine; Visit Provider Radiology Diagnostic Radiology | DX: K57.30 Diverticulosis of large intestine without perforation or abscess without bleeding (principal) | CPT/HCPCS: 74177 ==

== ENCOUNTER → 2025-03-25 15:32 | Outpatient (BNV) | payer MEDICAID, SELFPAY | PROVIDERS: Admitting Provider Student in an Organized Health Care Education/Training Program; Emergency Provider Emergency Medicine; PCP Family Medicine; Visit Provider Nurse Practitioner Acute Care | DX: K52.9 Noninfective gastroenteritis and colitis, unspecified (principal) | CPT/HCPCS: 99223; 99232; 99239 ==

== ENCOUNTER → 2025-03-25 15:32 | Outpatient (BNV) | payer MEDICAID, SELFPAY | PROVIDERS: Admitting Provider Student in an Organized Health Care Education/Training Program; Emergency Provider Emergency Medicine; PCP Family Medicine; Visit Provider Internal Medicine Gastroenterology | DX: K52.9 Noninfective gastroenteritis and colitis, unspecified (principal) | CPT/HCPCS: 99223 ==

== ENCOUNTER 2025-03-31 09:21 | Outpatient (AMB) | payer MEDICAID, SELFPAY ==
--- NOTE | 2025-03-31 09:25 | MHC.OFFVIS ---
Vital Signs 03/31/25 09:33 Weight 165 lb 5.547 oz BP 144/81 H Blood Pressure Location Lt brachial Position Sitting Pulse 68 Intake Visit Reasons: 4 mo f/u Intake Note: Kvng presents in the office as a 4 month follow up. CC: He was seen in the ED where they gave him antibiotics - states that he is having some concerns. He is curious if the bacteria is still in his stomach. 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 he had been told he has prominent spur in the neck which maybe causing his symptoms by his neurosurgeon CT 2018--fatty liver, liver cyst, bilobed and septated Ba swallow with prominent cricopharyngeal sphincter EGD --: LA grade A esophagitis, schatzki ring, balloon dilation w tear noted, antral erosive gastritis, bulbar duodenitis reflux changes on bx he was still c/o sx at f/u with saliva choking him, tightness PCP ordered us and pos for fatty liver, LFT have been normal. he can swallow food without any issue except for one occasion 4 d felt like some sfood stuck in stomach still taking carafate and pantopRAZOLE, feels doesn't help him seeing pain management for hip I ordered cardiac eval due to SOB,this was neg RAST testing neg OTHER DATA-- MBS ---unremarkable MRI--10/2020--Fatty liver. Several liver cysts, largest a minimally complex cyst measuring 4.5 x 3.6 cm in the right lobe of the liver. 1 cm probable complex cyst in the lower pole of the left kidney. Diverticulosis of the colon. repeat MRI 04/2021--dominant cyst central right lobe with circumscribed macrolobulated margins is without significant change in size, measuring 4.6 x 3.8 x 4.5 cm on current study. Prior measurement is 4.4 x 3.7 x 4.4 cm on MR 10/28/2020 and 3.9 x 3.2 x [address] abdomen 07/18/2019, (both prior exams remeasured in same orientation). No solid component or visible septation. EGD with dilation 05/06/21 Impression/Findings: schatzki ring esophagitis gastritis duodenitis maybe due to medications i.e CCB, SSRI GES 08/2021-- nml emptying at 4 hrs He had a lot of mucous and sputum and I had given him loratadine, pepcid A rept MRI was ordered 08/26/22 with stable liver and renal cysts Ba swallow with tab 09/2022 w/o stricture, some dysmotility noted US: 01/2023-- liver cyst and small kidney cysts, fatty liver, mild raised elastography CT 02/28- liver cysts were stable, no acute path (this CT was ordered by ED) KUB: 08/31-- moderate constipation Ba swallow: Mild to moderate cricopharyngeal achalasia, Status post anterior fusion C5-C7 without gross complication. Prominent ventral C4-C5 osteophyte without mass effect. small hiatal hernia EGD 08/01 with savary dilation: small hiatal hernia noted schatzki ring He had admission 03/26/25 with diarrhea and abdominal pain, he was pos for covid and campylobacter INTERIM: He is recovering from his recent admission for colitis he still has diarrhea and mild abdominal pain, but overall better than before no n/v appetite is good no blood in stool EXAM: GENERAL: The patient is well developed and nontoxic.-obese VITAL SIGNS:see workflow HEENT: Nonicteric sclerae, PERRLA, EOMI. Oropharynx clear. Moist mucous membranes. Conjunctivae appear well perfused. No thyroid mass. CHEST: Chest wall is tender to touch HEART: Regular rate and rhythm without murmurs. LUNGS: Clear to auscultation bilaterally. ABDOMEN: Soft, positive bowel sounds, non tender, no organomegaly. SKIN: nml NEUROLOGIC: Cranial nerves II-XII intact without motor/sensory deficit. 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 Venous congestion Pain in right lower leg Lipoma of scalp Kidney cysts Spondylosis of thoracic spine Spondylosis of lumbar spine Schatzki's ring Fatty liver HTN (hypertension) Pre-diabetes Dysphagia Asthma Hx of chest pain DAYNA on CPAP Hypothyroid Psoriasis Psoriatic arthritis Chronic pain Mood disorder Depression Avascular necrosis Chronic pain syndrome Spondylosis of lumbar region without myelopathy or radiculopathy Spondylosis, cervical Degeneration, intervertebral disc, cervical Surgical History History of back surgery History of surgery Status post excision of lipoma (~10/21/21) Status post cardiac catheterization Hx of cardiac cath H/O neck surgery Hx of hand surgery Hx of endoscopy History of colonoscopy Family History Father Cirrhosis Alcoholism Mother Diabetes HTN (hypertension) Parkinson disease Brother Cirrhosis Alcoholism Social History Household Members: Spouse and Children Housing: House Are you a primary customer care team coach to a significant other at home: No Do you presently have visiting nurse or other home services: Yes Alcohol intake: never Patient Tobacco Use Status: Never used Tobacco Tobacco use type: Cigarette Second Hand Smoke Exposure: No service: No Current occupational status: disabled Current occupation: rt handed Physical Exam Vital Signs: Last Vital Signs Pulse 68 03/31/25 09:33 BP 144/81 H 03/31/25 09:33 Assessment & Plan Assessment & Plan (1) Campylobacter enteritis: Code(s): A04.5 - Campylobacter enteritis Category: Medical Plan: as above Medications: New dicyclomine 10 mg PO TID 60 caps 0RF guaifenesin ER (Mucinex) 1,200 mg PO BID 60 tabs 2RF Coding Level of Care Code Est Pt Level 3 (06689) Diagnoses Campylobacter enteritis A04.5
[2025-03-31 09:33] VITALS: BP 144/81; PULSE 68
--- OUTSIDE RECORDS SUMMARY | 2025-03-31 10:11 | XMS_ITS | Clinical Summary ---
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 Psoriatic arthritis [...] ne, 13 Valent 06/07/2019 Pneumococcal conjugate PCV20,polysaccharide [id number] conjugate, adjuvant, PF (Prevnar 20) 02/01/2024 RSV, [...] 06/24/2024, , 07/02/2021, Additional history exists Insurance [employer] Care Teams Multigraph Operator Relationship Specialty Start Date End Date Koki Vu [address] [place] [id number] PCP - General 12/26/23
== END 2025-03-31 10:15 | disposition home or self-care (01) ==
LOC: HO.HGI 09:22
PROVIDERS: PCP Family Medicine; Visit Provider Internal Medicine Gastroenterology
DX: A04.5 Campylobacter enteritis (principal)
CPT/HCPCS: 99213

== ENCOUNTER → 2025-03-31 09:21 | Outpatient (BNVA) | payer MEDICAID, SELFPAY | PROVIDERS: PCP Family Medicine; Visit Provider Internal Medicine Gastroenterology | DX: A04.5 Campylobacter enteritis (principal) | CPT/HCPCS: 99212 ==

== ENCOUNTER 2025-04-02 09:16 | Outpatient (AMB) | payer MEDICAID, SELFPAY ==
[2025-04-02 09:32] VITALS: BP 137/87; PULSE 85; RESP 18; O2SAT 97
--- NOTE | 2025-04-02 09:32 | MHC.OFFVIS ---
Vital Signs 04/02/25 09:32 Weight 165 lb BP 137/87 Blood Pressure Location Lt brachial Position Sitting Respiration 18 Pulse 85 Pulse Source Pulse Oximeter Pulse Oximetry (%) 97 Oxygen Delivery Method Room Air Intake Visit Reasons: RIGHT C3 SPRINT PNS REMOVAL Intake Note: removed two sprint devices upper shoulders near neck completely with tip intact. site look good. no bleeding Calculating Machine Operator Required: Yes Calculating Machine Operator Services: Calculating Machine Operator Present Calculating Machine Operator Name: giselle [id number] Allergies fremanezumab-vfrm (From [employer] Autoinjector) Allergy (Unknown, Verified 04/02/25 09:33) Rash opiods Allergy (Unknown, Uncoded 03/31/25 09:30) Rash HPI Comments Details: Kvng is back in my office after he completed treatment for sprint PNS of the cervical spine. He received C3 bilaterally. He reports at least 50% pain improvement. He reports better mobility better activities of daily living absence of shooting pain to his back of the head and front of the head. He was informed today that he can not come back in 6 months if his pain will return and we will repeat the sprint PNS at that time. I told him that usually it lasts 8-12 months after the insertion of the device. Patient expressed understanding. He with the lower back pain was in my office for very long period of time. He received multiple procedures including medial branch blocks with no improvements transforaminal epidural steroid injections with no improvements, he went for mild procedure which resulted in no improvement of his pain, he went for a trial of Nevro spinal cord stimulator and reported no more than 30% pain improvement. We tried pain pump trial procedures on him twice once with hydromorphone and once with fentanyl. On both times he reported excellent 100% pain relief in the lower back however he reported significant itching requiring administration of Narcan intranasally. Therefore the effect of the opioid medication was eliminated. 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 Venous congestion Pain in right lower leg Lipoma of scalp Kidney cysts Spondylosis of thoracic spine Spondylosis of lumbar spine Schatzki's ring Fatty liver HTN (hypertension) Pre-diabetes Dysphagia Asthma Hx of chest pain DAYNA on CPAP Hypothyroid Psoriasis Psoriatic arthritis Chronic pain Mood disorder Depression Avascular necrosis Chronic pain syndrome Spondylosis of lumbar region without myelopathy or radiculopathy Spondylosis, cervical Degeneration, intervertebral disc, cervical Surgical History History of back surgery History of surgery Status post excision of lipoma (~10/21/21) Status post cardiac catheterization Hx of cardiac cath H/O neck surgery Hx of hand surgery Hx of endoscopy History of colonoscopy Family History Father Cirrhosis Alcoholism Mother Diabetes HTN (hypertension) Parkinson disease Brother Cirrhosis Alcoholism Social History Household Members: Spouse and Children Housing: House Are you a primary career information specialist to a significant other at home: No Do you presently have visiting nurse or other home services: Yes Alcohol intake: never Patient Tobacco Use Status: Never used Tobacco Tobacco use type: Cigarette Second Hand Smoke Exposure: No service: No Current occupational status: disabled Current occupation: rt handed Review of Systems Const All systems reviewed & are unremarkable except as noted in HPI and below Physical Exam Vital Signs: Last Vital Signs Pulse 85 04/02/25 09:32 Resp 18 04/02/25 09:32 BP 137/87 04/02/25 09:32 Pulse Ox 97 04/02/25 09:32 Oxygen Delivery Method Room Air 04/02/25 09:32 Const General: cooperative, healthy appearing, comfortable, well developed, alert and awake Nutritional Appearance: average body habitus Orientation/consciousness: patient oriented x3 Limitations: language barrier Eyes Pupils: Equal, round and reactive pupils present EOM: EOMs intact bilaterally Neck Other: On inspection straightened cervical lordosis. Flexion forward and flexion backwards both aggravate the pain however flexion forward aggravate pain less than flexing backwards. Axial compression aggravates pain. Spurling test is negative bilaterally. Lhermitte test is negative. Neck: No full ROM Chest Chest palpation & inspection: normal inspection of the chest Resp Effort & Inspection: normal respiratory effort, able to speak in complete sentences, normal respiratory pattern, no audible wheezes and no cough Cardio Jugular venous distension: no JVD Back/Spine/Pelvis Other: tenderness on palpation in paraspinal spinal region in lumbar spine. Loading test is positive. Range of motion in lumbar spine is preserved. Quincy test happened to be positive on the right. Stinchfield test is positive on the right. Pelvic destruction test might be positive on the right. Tenderness on palpation in paraspinal spinal regions of upper lumbar spine. Loading test is positive on the right. SLR is positive on the right. Neuro General: patient oriented x3 Cranial nerves: Yes Equal, round and reactive pupils present Psych Speech and movement: Normal speech and movement present Affect: normal affect Attitude: cooperative Assessment & Plan Assessment & Plan (1) Sacroiliac joint pain: Code(s): M53.3 - Sacrococcygeal disorders, not elsewhere classified Category: Medical (2) Lumbar radiculopathy: Code(s): M54.16 - Radiculopathy, lumbar region Category: Medical (3) Disc degeneration, lumbar: Code(s): M51.36 - Other intervertebral disc degeneration, lumbar region Category: Medical (4) Chronic pain syndrome: Code(s): G89.4 - Chronic pain syndrome Category: Medical (5) Discogenic cervical pain: Code(s): M50.30 - Other cervical disc degeneration, unspecified cervical region Category: Medical (6) Spondylosis of cervical region without myelopathy or radiculopathy: Code(s): M47.812 - Spondylosis without myelopathy or radiculopathy, cervical region Category: Medical Plan The neck pain of this patient is predominantly axial and not radiating into the upper extremities. It is most likely facetogenic pain. Very promising results of the bilateral medial branch block C2, C3, C4. Completed 8 weeks of stimulation with sprint PNS C3 bilateral. Reports at least 50% pain improvement and absence of shooting pain into the head. Reports good mobility of the neck. Electrodes removed today no signs of infection. The patient will be scheduled for yet another procedure as needed in the future but not earlier than 6 months after the insertion of the electrodes. Coding Level of Care Code Est Pt Level 3 (56286) Diagnoses Sacroiliac joint pain M53.3 Lumbar radiculopathy M54.16 Disc degeneration, lumbar M51.36 Chronic pain syndrome G89.4 Discogenic cervical pain M50.30 Spondylosis of cervical region without myelopathy or radiculopathy M47.816
--- OUTSIDE RECORDS SUMMARY | 2025-04-02 10:05 | XMS_ITS | Clinical Summary ---
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 Psoriatic arthritis [...] Already f w psychiatrist and therapist at [facility] ---advised to continue care and may need eval if meds can be adjusted Immunizations Immunization Administration Dates Next Due Hepatitis A Vaccine, Adult Dosage 08/14/2019 Hepatitis B adult (ENGERIX-B ADULT) vaccine 1 mL IM 08/14/2019 Influenza, Injectable, Quadr ivalent, Contains Preservative 09/06/2018,12/11/2017 Influenza, Injectable, Quadr ivalent, Preservative Free 07/31/2023,07/02/2021,08/26/2020,2018 Pneumococcal Conjugate Vacci ne, 13 Valent 06/07/2019 Pneumococcal conjugate PCV20,polysaccharide [id number] conjugate, adjuvant, PF (Prevnar 20) 02/01/2024 RSV, [...] 06/24/2024, , 07/02/2021, Additional history exists Insurance [employer] Care Teams Cisco Network Engineer Relationship Specialty Start Date End Date Koki Vu [address] [place] [id number] PCP - General 12/26/23
== END 2025-04-02 09:56 | disposition home or self-care (01) ==
LOC: HO.PMC 09:16
PROVIDERS: PCP Family Medicine; Visit Provider Anesthesiology
DX: M53.3 Sacrococcygeal disorders, not elsewhere classified (principal); M54.16 Radiculopathy, lumbar region; M51.369 Other intervertebral disc degeneration, lumbar region without mention of lumbar back pain or lower extremity pain; G89.4 Chronic pain syndrome; M50.30 Other cervical disc degeneration, unspecified cervical region; M47.812 Spondylosis without myelopathy or radiculopathy, cervical region
CPT/HCPCS: 99213

== ENCOUNTER → 2025-04-02 09:16 | Outpatient (BNVA) | payer MEDICAID, SELFPAY | PROVIDERS: PCP Family Medicine; Visit Provider Anesthesiology | DX: M54.16 Radiculopathy, lumbar region (principal); M51.360 Other intervertebral disc degeneration, lumbar region with discogenic back pain only; M53.3 Sacrococcygeal disorders, not elsewhere classified; G89.4 Chronic pain syndrome; M50.30 Other cervical disc degeneration, unspecified cervical region; M47.812 Spondylosis without myelopathy or radiculopathy, cervical region | CPT/HCPCS: 99212 ==

== ENCOUNTER 2025-04-04 09:50 | Outpatient (REF) | payer MEDICAID, SELFPAY ==
--- OUTSIDE RECORDS SUMMARY | 2025-04-04 10:23 | XMS_ITS | Clinical Summary ---
Author Organization [facility] ity Address [address] [place] [address] Care Team Providers Care Assistant Womens Volleyball Coach Name Role Phone Jessica Rogers MD Primary Care Provider [phone] Social History Tobacco Use Types Packs/Day Years [...] age to complete this topic Care Teams Assistant Womens Volleyball Coach Relationship Specialty Start Date End Date Jessica Rogers MD [address] [place] [address] [phone] PCP - General General Surgery 09/22/21
[2025-04-04 14:14] LABS: MANUAL DIFF FLAG NO
[2025-04-04 14:17] LABS: Basophils Percent Auto 0.5 % (0-2); Eosinophils Absolute Auto 0.2 X10*3/uL (0.0-0.4); Hematocrit 42.6 % (42.0-52.0); Hemoglobin 14.2 g/dl (14.0-18.0); Imm Gran Abs Auto 0.04 X10*3/uL (0.00-0.03); Imm Gran Pct Auto 0.7 % (0.0-0.4); Lymphocytes Absolute Auto 3.2 X10*3/uL (1.2-4.9); Lymphocytes Percent Auto 52.3 % (20-40); Mean Corpuscular HGB Conc 33.3 g/dl (31.0-36.0); Mean Corpuscular Hemoglobin 30.7 pg (27.0-33.0); Mean Corpuscular Volume 92.2 fL (80.0-98.0); Mean Platelet Volume 9.3 fL (9.4-12.4); Monocytes Absolute Auto 0.5 X10*3/uL (0.1-1.2); Monocytes Percent Auto 8.5 % (2-11); Neutrophils Absolute Auto 2.1 x10*3/uL (2.0-8.3); Platelet Count 428 X10*3/uL (160-400); Red Blood Count 4.62 X10*6/uL (4.60-5.80); Red Cell Distribution Width 14.4 % (11.0-16.0); White Blood Count 6.1 X10*3/uL (4.8-10.8)
[2025-04-04 14:35] LABS: Alanine Aminotransferase 72 U/L (0-40); Albumin Level 4.3 g/dL (3.5-5.0); Alkaline Phosphatase 77 U/L (39-117); Anion Gap 12 (12-20); Aspartate Amino Transferase 33 U/L (5-37); Bilirubin Total 0.5 mg/dL (0.0-1.0); Blood Urea Nitrogen 14 mg/dL (9-16); C Reactive Protein 0.25 mg/dL (< or = 0.50); Carbon Dioxide 25 mmol/L (22-29); Chloride 107 mmol/L (96-108); Estimated Glomerular Filt Rate > 60; Glucose Random 88 mg/dL (60-115); Sodium 140 mmol/L (135-145)
[2025-04-04 14:58] LABS: Erythrocyte Sedimentation Rate 5 MM/HR (0-15)
== END 2025-04-04 09:51 | disposition home or self-care (01) ==
LOC: HO.CHCLDS 09:50
PROVIDERS: PCP Family Medicine; Referring Provider Student in an Organized Health Care Education/Training Program; Visit Provider Family Medicine
DX: L40.50 Arthropathic psoriasis, unspecified (principal)
CPT/HCPCS: 36415; 80053; 85025; 85652; 86140

== ENCOUNTER 2025-04-28 11:16 | Outpatient (AMB) | payer MEDICAID, SELFPAY ==
[2025-04-28 11:19] VITALS: BP 102/68; PULSE 82; O2SAT 96; BMI 29.9
--- NOTE | 2025-04-28 11:19 | MHC.OFFVIS ---
Vital Signs 04/28/25 11:19 Height 5 ft 3 in Weight 168 lb 13.985 oz BMI 29.9 BP 102/68 Blood Pressure Location Lt brachial Position Sitting Pulse 82 Pulse Source Pulse Oximeter Pulse Oximetry (%) 96 Oxygen Delivery Method Room Air Intake Visit Reasons: Acquired hypothyroidism Intake Note: Patient present today for Acquired hypothyroidism. Maori Liaison Adviser Required: Yes Maori Liaison Adviser Language: Physician Representative Services: Maori Liaison Adviser Present Maori Liaison Adviser Name: Bienvenido [id number] Accompanied by: Self / Same As Patient Allergies fremanezumab-vfrm (From [employer] Autoinjector) Allergy (Unknown, Verified 04/28/25 11:22) Rash opiods Allergy (Unknown, Uncoded 04/28/25 11:22) Rash HPI Comments Details: 59-year-old male coming in today for follow up of hypothyroidism. HPI First diagnosed with hypothyroidism sometime around . Has been on levothyroxine 88 mcg daily for some time. Normal TSH from January 2025. Does report tiredness and constipation. Weight stable. ? Does report some intermittent difficulty swallowing. No voice changes. He is very anxious about his difficulty swallowing, he saw GI for this is well, barium swallow showed Ba swallow: Mild to moderate cricopharyngeal achalasia, Status post anterior fusion C5-C7 without gross complication. Prominent ventral C4-C5 osteophyte without mass effect. small hiatal hernia EGD 08/01 with savary dilation: small hiatal hernia noted schatzki ring Patient denies any history of childhood neck radiation. Denies having ever used lithium, amiodarone or biotin supplements. Patient denies any family history of thyroid cancer or thyroid disease. Interval history Ultrasound thyroid 03/24/2025, I reviewed the images myself which show a normal-appearing thyroid with no discrete nodules. Physical exam General: sitting comfortably in no acute distress HEENT: normocephalic/atraumatic, Neck: supple, symmetrical, Cardiac: normal heart sounds Pulm: normal breath sounds B/L, no added breath sounds Abd: not distended, no tenderness Extremities: no edema, no signs of myxedema Laboratory Tests 01/14/25 09:22 TSH 0.88 US THYROID 03/24/25 CLINICAL INFORMATION: Hypothyroidism COMPARISON: None available. TECHNIQUE: Linear transducer grayscale and color Doppler examination with attention to the region of the thyroid. FINDINGS: SIZE: Measurements of the thyroid lobes and nodules are given in sagittal, anteroposterior and transverse dimensions respectively. Right Thyroid Lobe: 3.8 x 1.9 x 1.2 cm, volume 4.4 mL. Parenchyma: The gland echotexture is homogeneous. Thyroid vascularity is normal. Left Thyroid Lobe: 3.1 x 1.4 x 1.2 cm, volume 2.6 mL. Parenchyma: The gland echotexture is homogeneous. Thyroid vascularity is normal. Isthmus: 0.2 cm in maximum AP dimension. There are no nodules. NODES: No lymphadenopathy is seen in the tissue surrounding the thyroid gland. US/US thyroid IMPRESSION: 1. Normal thyroid ultrasound. 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 Venous congestion Pain in right lower leg Lipoma of scalp Kidney cysts Spondylosis of thoracic spine Spondylosis of lumbar spine Schatzki's ring Fatty liver HTN (hypertension) Pre-diabetes Dysphagia Asthma Hx of chest pain DAYNA on CPAP Hypothyroid Psoriasis Psoriatic arthritis Chronic pain Mood disorder Depression Avascular necrosis Chronic pain syndrome Spondylosis of lumbar region without myelopathy or radiculopathy Spondylosis, cervical Degeneration, intervertebral disc, cervical Surgical History History of back surgery History of surgery Status post excision of lipoma (~10/21/21) Status post cardiac catheterization Hx of cardiac cath H/O neck surgery Hx of hand surgery Hx of endoscopy History of colonoscopy Family History Father Cirrhosis Alcoholism Mother Diabetes HTN (hypertension) Parkinson disease Brother Cirrhosis Alcoholism Social History Household Members: Spouse and Children Housing: House Are you a primary healthcare translator to a significant other at home: No Do you presently have visiting nurse or other home services: Yes Alcohol intake: never Patient Tobacco Use Status: Never used Tobacco Tobacco use type: Cigarette Second Hand Smoke Exposure: No service: No Current occupational status: disabled Current occupation: rt handed Physical Exam Vital Signs: Last Vital Signs Pulse 82 04/28/25 11:19 BP 102/68 04/28/25 11:19 Pulse Ox 96 04/28/25 11:19 Oxygen Delivery Method Room Air 04/28/25 11:19 BMI result Body Mass Index 29.9 Assessment & Plan Assessment & Plan (1) Hypothyroid: Code(s): E03.9 - Hypothyroidism, unspecified Category: Medical Qualifiers: 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 Normal TSH from January 2025. Plan: -continue levothyroxine 88 mcg daily -follow up in 1 year with repeat labs (2) Dysphagia: Code(s): R13.10 - Dysphagia, unspecified Category: Medical Qualifiers: Dysphagia type: other dysphagia Qualified Code(s): R13.19 - Other dysphagia Plan: He has had intermittent dysphagia for a few years now. He was evaluated by GI, barium swallow showed Mild to moderate cricopharyngeal achalasia, Status post anterior fusion C5-C7 without gross complication. Prominent ventral C4-C5 osteophyte without mass effect. small hiatal hernia EGD 08/01 with savary dilation: small hiatal hernia noted [facility] Looks like at this time dysphagia is thought to be maybe as a result of the osteophyte in his cervical spine or possibly a combination of acid reflux and postnasal drip, at this time he is very apprehensive about choking, while I do not feel any palpable nodules on my exam, we can get a thyroid ultrasound to ensure that this is not related to his thyroid. Ultrasound thyroid 03/24/2025, I reviewed with the patient that there are no discrete nodules on his thyroid ultrasound and he has a very normal-appearing thyroid. So none of his difficulty swallowing is thyroid related. Recommend continue follow up with GI for GI issues. 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
--- OUTSIDE RECORDS SUMMARY | 2025-04-28 12:26 | XMS_ITS | Clinical Summary ---
Author Organization [facility] ity Address [address] [place] [address] Care Team Providers Care Fish Agent Name Role Phone Jessica Rogers MD Primary Care Provider [phone] Social History Tobacco Use Types Packs/Day Years [...] Panel) 09/07/2022 Colorectal Cancer Screening: Colonoscopy 09/07/2022 HIV Screening 09/07/2022 Hepatitis C Screening 09/07/2022 Social Influencers of Health Screening 09/07/2022 COVID-19 Vaccine (1 - 2023-2 5 season) 2024 Depression Screening 10/09/2024 Influenza Vaccine (#1) 2025 RSV Immunization Adult Patie nts (1 [...] age to complete this topic Care Teams Fish Agent Relationship Specialty Start Date End Date Jessica Rogers MD [address] [place] [address] [phone] PCP - General General Surgery 09/22/21
--- OUTSIDE RECORDS SUMMARY | 2025-04-28 12:26 | XMS_ITS | Clinical Summary ---
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 Psoriatic arthritis [...] Already f w psychiatrist and therapist at [facility] ---advised to continue care and may need eval if meds can be adjusted Immunizations Immunization Administration Dates Next Due Hepatitis A Vaccine, Adult Dosage 08/14/2019 Hepatitis B adult (ENGERIX-B ADULT) vaccine 1 mL IM 08/14/2019 Influenza, Injectable, Quadr ivalent, Contains Preservative 09/06/2018,12/11/2017 Influenza, Injectable, Quadr ivalent, Preservative Free 07/31/2023,07/02/2021,08/26/2020,2018 Pneumococcal Conjugate Vacci ne, 13 Valent 06/07/2019 Pneumococcal conjugate PCV20,polysaccharide [id number] conjugate, adjuvant, PF (Prevnar 20) 02/01/2024 RSV, [...] / Fit Test 05/15/2024 05/15/2023 COVID-19 Vaccine (2023-2 5 season) 2024 04/27/2022, 09/23/2021, 01/18/2021, Additional history exists Alcohol/Substance Use Screening 10/09/2024 Depression Screening and Follow-Up 10/09/2024 Social Drivers of Health Evelyn ual Screening 10/09/2024 Influenza Vaccine (#1) 2025 4, 07/31/2023, 07/02/2021, Additional history exists Basic Metabolic Panel 08/13/2025 08/13/2024 , 02/14/2024, 12/31/2023 Cologuard 08/10/2026 08/10/2023, 08/10/2023 Colon Cancer Screening 08/10/2026 DTaP,Tdap,and Td Vaccines (2 - Td or Tdap) 07/10/2029 07/10/2019 Zoster Vaccines Completed 06/27/2022, 04/25/2022 Pneumococcal Vaccine: 50+ Years Completed , 06/07/2019 RSV Vaccine (60+ years old a nd patients) Completed 02/16/2024 Hepatitis B Vaccines Completed 04/16/2024, 02/16/2024, 08/14/2019 Insurance [employer] Care Teams Quality Control Assistant Relationship Specialty Start Date End Date Koki Vu [address] [place] [address] [place] [id number] PCP - General 12/26/23
--- OUTSIDE RECORDS SUMMARY | 2025-04-28 12:26 | XMS_ITS | Encounter Summary ---
Author Organization [employer] Address [address] [facility] [facility] [address] [place] [address] Care Team Providers Care Permanent Mold Supervisor Name Role Phone Koki Vu MD Primary Care Provider [phone] Encounter Details Date Type Department Care Team (Late st Contact Info) Description 02/05/2024 Orders Only [facility] [address] [place], [place] [id number] Provider, MD Nasima Social History Tobacco Use [...] documented as of this encounter Care Teams Permanent Mold Supervisor Relationship Specialty Start Date End Date Koki Vu MD [address] [place] [id number] PCP - General Family Medicine 10/23/20 Addie History Faculty MemberSenior Marketing Associate 06/17/24 documented as of this encounter
--- OUTSIDE RECORDS SUMMARY | 2025-04-28 12:26 | XMS_ITS | Clinical Summary ---
Author Organization [facility] Address [address] [place] [address] Care Team Providers Care Poultry Grader Name Role Phone Unavailable Primary Care Provider [...] (1 of 2) 2013 Influenza Vaccine (#1) 2025 RSV Adult > 60+ Yrs or Pregn [...] to complete this topic , [address] [place] [address]
== END 2025-04-28 11:37 | disposition home or self-care (01) ==
LOC: HO.ENCR 11:17
PROVIDERS: PCP Family Medicine; Visit Provider Student in an Organized Health Care Education/Training Program
DX: E06.3 Autoimmune thyroiditis (principal); R13.19 Other dysphagia
CPT/HCPCS: 99213

== ENCOUNTER → 2025-04-28 11:16 | Outpatient (BNVA) | payer MEDICAID, SELFPAY | PROVIDERS: PCP Family Medicine; Visit Provider Student in an Organized Health Care Education/Training Program | DX: E06.3 Autoimmune thyroiditis (principal); R13.19 Other dysphagia | CPT/HCPCS: 99212 ==

== ENCOUNTER 2025-05-01 12:11 | Outpatient (AMB) | payer MEDICAID, SELFPAY ==
--- NOTE | 2025-05-01 12:31 | A.OFFVIS_ITS ---
Vital Signs 05/01/25 12:32 Height 5 ft 3 in Weight 170 lb 3.15 oz BMI 30.1 BP 108/62 Blood Pressure Location Lt brachial Position Sitting Pulse 83 Pulse Source Pulse Oximeter Pulse Oximetry (%) 96 Oxygen Delivery Method Room Air Intake Visit Reasons: follow up Intake Note: Patient last seen by doctor Cristela Dejesus on 12/17/24. Presents today for PsA follow up and test results. Clinical Trials Manager Name: Agustina [phone] Allergies [id number] (From [employer] Autoinjector) Allergy (Unknown, Verified 05/01/25 12:35) Rash opiods Allergy (Unknown, Uncoded 05/01/25 12:35) Rash HPI Comments Details: Patient is a 60-year-old male with hyperlipidemia, hypothyroidism, spondylosis of the cervical spine and lumbosacral spine, polyarticular osteoarthritis, Dorantes, GERD, fibromyalgia, avascular necrosis of the left hip, psoriasis and psoriatic arthritis here today for follow up Interval History: Patient last seen 12/17/24 with me. - Had good response to Enbrel but still had pain - Planned to f/u with pain management - C/o left trigger finger, received steroid inj Today, - trigger finger injection helped - f/u with pain management: placed nerve stimulator but that didn't help - Held Enbrel because he was hospitalized 03/25 - 03/28 for COVID and infectious colitis 2/2 campylobacter. Restarted it 2 weeks ago - Still having back pain - some PsO patches Rheumatologic History: Psoriatic arthritis - Methotrexate: dates unknown - Enbrel: 06/2019-present Current Rheumatology Medication(s): Enbrel 50 mg sc weekly (holding) Celebrex 200mg bid Methocarbamol 500mg bedtime [facility] 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 Venous congestion Pain in right lower leg Lipoma of scalp Kidney cysts Spondylosis of thoracic spine Spondylosis of lumbar spine Schatzki's ring Fatty liver HTN (hypertension) Pre-diabetes Dysphagia Asthma Hx of chest pain DAYNA on CPAP Hypothyroid Psoriasis Psoriatic arthritis Chronic pain Mood disorder Depression Avascular necrosis Chronic pain syndrome Spondylosis of lumbar region without myelopathy or radiculopathy Spondylosis, cervical Degeneration, intervertebral disc, cervical Surgical History History of back surgery History of surgery Status post excision of lipoma (~10/21/21) Status post cardiac catheterization Hx of cardiac cath H/O neck surgery Hx of hand surgery Hx of endoscopy History of colonoscopy Family History Father Cirrhosis Alcoholism Mother Diabetes HTN (hypertension) Parkinson disease Brother Cirrhosis Alcoholism Social History Household Members: Spouse and Children Housing: House Are you a primary physician primary care sports medicine to a significant other at home: No Do you presently have visiting nurse or other home services: Yes Alcohol intake: never Patient Tobacco Use Status: Never used Tobacco Tobacco use type: Cigarette Second Hand Smoke Exposure: No service: No Current occupational status: disabled Current occupation: rt handed Review of Systems Const Details: Review of Systems Constitutional: Denies fever, chills, weight loss ENT: Denies vision changes, eye pain or eye redness, dental caries, dry mouth GI: Denies nausea, vomiting, diarrhea, abdominal pain, change in BM Pulm: Denies SOB, DIAZ, hemoptysis, wheezing Cards: Denies chest pain, palpitations Skin: Denies Raynaud's, rash, nail changes, photosensitivity, LICENSED REAL ESTATE BROKER: Denies headaches, weakness, paresthesias, recurrent falls MSK: as per HPI All other systems reviewed and are unremarkable except noted above Physical Exam Exam Exam: Vital signs reviewed Physical Examination CONSTITUITIONAL Patient alert and cooperative. Well appearing and in no apparent painful distress MSK Hands * Right Hand: Able to make a fist. No swelling or tenderness to palpation of these joints. * Left Hand: Able to make a fist. No swelling or tenderness to palpation of these joints. Positive CMC grind test * Herbedens nodes noted bilaterally Wrists * Right Wrist: Full ROM. 70 degrees of wrist flexion, 80 degrees of wrist extension. No swelling or TTP * Left Wrist: Full ROM. 70 degrees of wrist flexion, 80 degrees of wrist extension. No swelling or TTP Elbows * Right Elbow: Full ROM. No swelling or TTP. No TTP of the medial and lateral epicondyles * Left Elbow: Full ROM. No swelling or TTP. No TTP of the medial and lateral epicondyles Shoulders * Right shoulder: Full ROM. No swelling noted. No TTP of the AC joint, subacromial bursa or posterior shoulder * Left shoulder: Full ROM. No swelling noted. No TTP of the AC joint, subacromial bursa or posterior shoulder Knees * Right knee: Full ROM. No swelling noted. No TTP of the knee joint lie or pes anserine bursa * Left knee: Full ROM. No swelling noted. No TTP of the knee joint lie or pes anserine bursa. * Crepitations felt bilaterally Ankles * Right ankle: Good ankle dorsiflexion and plantar flexion. No swelling. No TTP of the ankle joint * Left ankle: Good ankle dorsiflexion and plantar flexion. No swelling. No TTP of the ankle joint Feet * Right foot: Negative squeeze test * Left foot: Negative squeeze test Tender points? * No tenderness to palpation of the bilateral trapezius, supraspinatus, anterior costochondral junctions, bilateral suboccipital muscle insertions SKIN Hyperpigmentation noted to the extensor surface of the elbows Vital Signs: Last Vital Signs Pulse 83 05/01/25 12:32 BP 108/62 05/01/25 12:32 Pulse Ox 96 05/01/25 12:32 Oxygen Delivery Method Room Air 05/01/25 12:32 BMI result Body Mass Index 30.1 Results Reviewed Results Reviewed: Laboratory Tests 04/04/25 04/04/25 08:53 09:53 WBC 6.1 RBC 4.62 Hgb 14.2 Hct 42.6 Plt Count 428 H D ESR 5 Sodium 140 Potassium 4.0 Chloride 107 Carbon Dioxide 25 BUN 14 Creatinine 1.17 AST 33 ALT 72 H C-Reactive Protein 0.25 Assessment & Plan Assessment & Plan (1) Psoriatic arthritis: Comment: Methotrexate: dates unknown Enbrel: 06/2019-present Code(s): L40.50 - Arthropathic psoriasis, unspecified Category: Medical Plan: #PsA Patient is a 59-year-old male with psoriasis complicated by psoriatic arthritis. His psoriasis and psoriatic arthritis are currently in remission Plan - Enbrel 50mg SC weekly - RTC 6 months - Labs before visit: CBC, CMP, ESR, CRP (2) Trigger ring finger of left hand: Code(s): M65.342 - Trigger finger, left ring finger Plan: #Left 4th digit trigger finger Resolved (3) Osteoarthritis involving multiple joints on both sides of body: Code(s): M15.9 - Polyosteoarthritis, unspecified Category: Medical Plan: #Polyarticular OA Patient with widespread osteoarthritis and degenerative disease involving C- spine and LS spine. We will continue with Celebrex which helps his pain although it does not completely relieve it Continue follow up with pain management Plan - Celebrex 200mg bid - Methocarbamol 500mg at bedtime (4) Long-term use of immunosuppressant medication: Code(s): Z79.60 - nursing home (current) use of unspecified immunomodulators and immunosuppressants Category: Medical Plan: #Long-term Use of TNF Inhibitors: Enbrel Discussed with the patient the benefits and risks of TNF inhibitors for the management of the rheumatic condition Benefits include reduce pain, maintenance of remission and reduction of flares as well as ?progression of the disease Risks include injection sites/infusion reactions, serious infections (such as bacterial infections, opportunistic infections), malignancy, delaminating syndromes, autoimmune phenomena, CHF exacerbations, palmar plantar psoriasis and cytopenias Recommended rotating injection sites, and holding medication during and for up to 1 week after resolution of a febrile illness or open skin wound Plan I spent 30 minutes reviewing the record and labs, taking a history, examining the patient, discussing the treatment plan, ordering diagnostic work up and documenting in the medical record Coding Level of Care Code Est Pt Level 4 (60629) Complex EM visit Add On G2211 Diagnoses Psoriatic arthritis L40.50 Trigger ring finger of left hand M65.342 Osteoarthritis involving multiple joints on both sides of body M15.9 Long-term use of immunosuppressant medication Z79.60
[2025-05-01 12:32] VITALS: BP 108/62; PULSE 83; O2SAT 96; BMI 30.1
--- OUTSIDE RECORDS SUMMARY | 2025-05-01 12:44 | XMS_ITS | Encounter Summary ---
Author Organization [email or web address] Address [address] [facility] [address] [place] [address] Care Team Providers Care Client Support Consultant Name Role Phone Koki Vu MD Primary Care Provider [phone] Encounter Details Date Type Department Care Team (Late st Contact Info) Description 02/05/2024 Orders Only [facility] MEDICINE [address] [place], [place] [phone] Provider, MD Nasima Social History Tobacco Use [...] documented as of this encounter Care Teams Client Support Consultant Relationship Specialty Start Date End Date Koki Vu MD [address] [place] [address] PCP - General Family Medicine 10/23/20 Addie Traffic Rate ComputerInternational Representative 06/17/24 documented as of this encounter
--- OUTSIDE RECORDS SUMMARY | 2025-05-01 12:44 | XMS_ITS | Clinical Summary ---
Author Organization [facility] Address [address] [place] [address] Care Team Providers Care Pipe Fitter Name Role Phone Unavailable Primary Care Provider [...] to complete this topic , [address] [place] [address]
--- OUTSIDE RECORDS SUMMARY | 2025-05-01 12:44 | XMS_ITS | Clinical Summary ---
Author Organization [facility] Address [address] [place] [address] Care Team Providers Care Caster Helper Name Role Phone Vu Koki Primary Care Provider [phone] Allergies No known active allergies Medications [...] reports he needs new TSH border for advertising representative referal placed in previous appointment. Psoriatic arthritis [...] ne, 13 Valent 06/07/2019 Pneumococcal conjugate PCV20,polysaccharide [id number] conjugate, adjuvant, PF (Prevnar 20) 02/01/2024 RSV, [...] B Vaccines Completed 04/16/2024, 02/16/2024, 08/14/2019 Insurance [employer] Care Teams Caster Helper Relationship Specialty Start Date End Date Koki Vu [address] [place] [address] [place] [address] PCP - General 12/26/23
--- OUTSIDE RECORDS SUMMARY | 2025-05-01 12:44 | XMS_ITS | Clinical Summary ---
Author Organization [facility] ity Address [address] [place] [address] Care Team Providers Care Used Car Renovator Name Role Phone Jessica Rogers MD Primary Care Provider [phone] Social History Tobacco Use Types Packs/Day Years [...] age to complete this topic Care Teams Used Car Renovator Relationship Specialty Start Date End Date Jessica Rogers MD [address] [place] [phone] PCP - General General Surgery 09/22/21
== END 2025-05-01 13:25 | disposition home or self-care (01) ==
LOC: HO.RHE 12:12
PROVIDERS: PCP Family Medicine; Visit Provider Student in an Organized Health Care Education/Training Program
DX: L40.50 Arthropathic psoriasis, unspecified (principal); M65.342 Trigger finger, left ring finger; M15.9 Polyosteoarthritis, unspecified; Z79.60 Long term (current) use of unspecified immunomodulators and immunosuppressants
CPT/HCPCS: 99214

== ENCOUNTER → 2025-05-01 12:11 | Outpatient (BNVA) | payer MEDICAID, SELFPAY | PROVIDERS: PCP Family Medicine; Visit Provider Student in an Organized Health Care Education/Training Program | DX: L40.50 Arthropathic psoriasis, unspecified (principal); M65.342 Trigger finger, left ring finger; M15.9 Polyosteoarthritis, unspecified; Z79.60 Long term (current) use of unspecified immunomodulators and immunosuppressants | CPT/HCPCS: 99212 ==

== ENCOUNTER 2025-05-28 08:18 | Outpatient (REF) | payer MEDICAID, SELFPAY ==
--- NOTE | ~2025-05-28 | US_ITS ---
CLINICAL HISTORY: N20.0 - Calculus of kidney US renal with Color Doppler Comparison: US/SR - US KIDNEY BILATERAL - 05/28/24 09:07 EDT Findings: Right kidney normal size and echotexture, 9.5 cm length. No hydronephrosis, calculus or mass. Normal color flow. Left kidney normal size and echotexture, 10.2 cm length. No hydronephrosis. Normal color flow. Midpole cyst measuring 1.4 x 1.5 x 1.7 cm, previously measured 1.3 x 0.9 x 1.2 cm. Adjacent calcification measuring 5 mm, previously measuring 3 mm. Probable incidental hepatic cyst right lobe measuring 2.2 x 1.2 x 1.8 cm with an adjacent calcification. Impression: 1. Kidneys normal size and position with normal cortical width and echotexture. 2. Midpole cyst left kidney with an adjacent calcification has minimally increased in size. 3. Probable incidental hepatic cysts right lobe of the liver with an adjacent calcification can be correlated with prior CT. This document has been electronically signed by: Clint Kamara MD on 05/29/2025 14:55:44
--- OUTSIDE RECORDS SUMMARY | 2025-05-28 08:55 | XMS_ITS | Clinical Summary ---
Author Organization [facility] Address [address] [place] [address] Care Team Providers Care Pl Sql Developer Name Role Phone Vu Koki Primary Care Provider [phone] Allergies No known active allergies Medications [...] reports he needs new TSH border for electrotype molder referal placed in previous appointment. Psoriatic arthritis [...] Already f w psychiatrist and therapist at [facility] ---advised to continue care and may need eval if meds can be adjusted Immunizations Immunization Administration Dates Next Due Hepatitis A Vaccine, Adult Dosage 08/14/2019 Hepatitis B adult (ENGERIX-B ADULT) vaccine 1 mL IM 08/14/2019 Influenza, Injectable, Quadr ivalent, Contains Preservative 09/06/2018,12/11/2017 Influenza, Injectable, Quadr ivalent, Preservative Free 07/31/2023,07/02/2021,08/26/2020,2018 Pneumococcal Conjugate Vacci ne, 13 Valent 06/07/2019 Pneumococcal conjugate PCV20,polysaccharide [id number] conjugate, adjuvant, PF (Prevnar 20) 02/01/2024 RSV, [...] B Vaccines Completed 04/16/2024, 02/16/2024, 08/14/2019 Insurance [employer] Care Teams Pl Sql Developer Relationship Specialty Start Date End Date Koki Vu [address] [place] [address] [place] [phone] PCP - General 12/26/23
--- OUTSIDE RECORDS SUMMARY | 2025-05-28 08:55 | XMS_ITS | Encounter Summary ---
Author Organization [employer] Address [address] [facility] 7t [place] [address] Care Team Providers Care Hose Tender Name Role Phone Koki Vu MD Primary Care Provider [phone] Encounter Details Date Type Department Care Team (Late st Contact Info) Description 02/05/2024 Orders Only [facility] MEDICINE [address] [place], [place] [phone] Provider, MD Nasima Social History Tobacco Use [...] documented as of this encounter Care Teams Hose Tender Relationship Specialty Start Date End Date Koki Vu MD [address] [place] [address] PCP - General Family Medicine 10/23/20 Addie Skin GraderIn Home Aide 06/17/24 documented as of this encounter
--- OUTSIDE RECORDS SUMMARY | 2025-05-28 08:55 | XMS_ITS | Clinical Summary ---
Author Organization [facility] Address [address] [place] [address] Care Team Providers Care Taxicab Dispatcher Name Role Phone Unavailable Primary Care Provider [...] to complete this topic , [address] [place] [address]
== END 2025-05-28 08:19 | disposition home or self-care (01) ==
LOC: HO.US 08:18
PROVIDERS: PCP Family Medicine; Visit Provider Nurse Practitioner Family
DX: N20.0 Calculus of kidney (principal)
CPT/HCPCS: 76775

== ENCOUNTER → 2025-05-28 08:21 | Outpatient (BNV) | payer MEDICAID, SELFPAY | PROVIDERS: PCP Family Medicine; Visit Provider Radiology Diagnostic Radiology | DX: N28.1 Cyst of kidney, acquired (principal) | CPT/HCPCS: 76775 ==

== ENCOUNTER 2025-06-05 08:47 | Outpatient (REF) | payer MEDICAID, SELFPAY ==
--- OUTSIDE RECORDS SUMMARY | 2025-06-05 09:31 | XMS_ITS | Clinical Summary ---
Author Organization [facility] ity Address [address] [place] [address] Care Team Providers Care Courtroom Clerk Name Role Phone Jessica Rogers MD Primary Care Provider [phone] Social History Tobacco Use Types Packs/Day Years [...] age to complete this topic Care Teams Courtroom Clerk Relationship Specialty Start Date End Date Jessica Rogers MD [address] [place] [phone] PCP - General General Surgery 09/22/21
--- OUTSIDE RECORDS SUMMARY | 2025-06-05 09:31 | XMS_ITS | Encounter Summary ---
Author Organization [facility] [employer] Address [address] [facility] 7t [place] [address] Care Team Providers Care Records Management Manager Name Role Phone Koki Vu MD Primary Care Provider [phone] Encounter Details Date Type Department Care Team (Late st Contact Info) Description 02/05/2024 Orders Only [facility] MEDICINE [address] [place], [place] [phone] Provider, MD Nasima Social History Tobacco Use [...] documented as of this encounter Care Teams Records Management Manager Relationship Specialty Start Date End Date Koki Vu MD [address] [place] [id number] PCP - General Family Medicine 10/23/20 Addie Portable Machine SanderConcrete Float Maker 06/17/24 documented as of this encounter
--- OUTSIDE RECORDS SUMMARY | 2025-06-05 09:32 | XMS_ITS | Encounter Summary ---
Author Organization [employer] Address [address] [facility] 7[address] [place] [address] Care Team Providers Care Computer Tech Name Role Phone Koki Vu MD Primary Care Provider [phone] Encounter Details Date Type Department Care Team (Late st Contact Info) Description 08/23/2023 Abstract [facility] MEDICINE [address] [place] [address] Koki Vu MD [address] [place], [place] [phone] Social History Tobacco Use Types Packs/Day Years [...] documented as of this encounter Care Teams Computer Tech Relationship Specialty Start Date End Date Koki Vu MD [address] [place] [address] PCP - General Family Medicine 10/23/20 Addie Secondary English TeacherJewel Hole Cornerer 06/17/24 documented as of this encounter
--- OUTSIDE RECORDS SUMMARY | 2025-06-05 09:32 | XMS_ITS | Encounter Summary ---
Author Organization [employer] Address [address] [facility] 7[address] [place] [address] Care Team Providers Care Ramp Agent Name Role Phone Koki Vu MD Primary Care Provider [phone] Encounter Details Date Type Department Care Team ([facility] st Contact Info) Description 09/27/2024 Telephone [facility] CHC MED & PEDS [address] [place], [place] [phone] Koki Vu MD [address] [place], [place] [phone] Social History Tobacco Use Types Packs/Day Years [...] t he electric, gas, oil or water [employer] threatened to shut off services in your [...] TC from [place] DO with [facility] pulmonology requesting a call back from pcp to discuss further medical options. Best contact # [phone]. documented in this encounter Plan of Treatment Not on file documented as of this encounter Visit Diagnoses Not on filedocumented in this encounter Additional Health Concerns Assessment Noted Time PHQ-9 Depression Total Score: 17 023 11:11 AM EDT documented as of this encounter Care Teams Ramp Agent Relationship Specialty Start Date End Date Koki Vu MD [address] [place] [address] PCP - General Family Medicine 10/23/20 Addie Lacquer CoaterAuthorizer 06/17/24 documented as of this encounter
--- OUTSIDE RECORDS SUMMARY | 2025-06-05 09:32 | XMS_ITS | Encounter Summary ---
Author Organization [employer] Address [address] [facility] 7t [place] [address] Care Team Providers Care Tree Faller Name Role Phone Koki Vu MD Primary Care Provider [phone] Reason for Visit * Reason Comments Med Refill Encounter Details Date Type Department Care Team ([facility] st Contact Info) Description 10/25/2023 Refill [facility] MED & PEDS [address] [place] [address] Koki Vu MD [address] [place] [address] Social History Tobacco Use Types Packs/Day Years [...] documented as of this encounter Care Teams Tree Faller Relationship Specialty Start Date End Date Koki Vu MD [address] [place] [phone] PCP - General Family Medicine 10/23/20 Addie New Autos Delivery DriverForest Aide 06/17/24 documented as of this encounter
--- OUTSIDE RECORDS SUMMARY | 2025-06-05 09:32 | XMS_ITS | Encounter Summary ---
Author Organization [employer] Address [address] [address] Care Team Providers Care Drill Press Operator Numerical Control Name Role Phone Koki Vu MD Primary Care Provider [phone] Reason for Referral * Consultation (Routine) - Closed Specialty Diagnoses / Procedures Referred By Contac t Referred To Contact Rheumatology Diagnoses Erosion of bone Tirso Mayfield MD [address] [place] [address] Phone: tel: fax: [facility] [address] [place] [address] Phone: tel: fax: Referral ID Status Reason Start Date Expiration Date V isits Requested Visits Authorized [id number] Closed Specialty Services Required 08/02/2024 08/02/2025 1 1 Encounter Details Date Type Department Care Team (Late st Contact Info) Description 08/02/2024 Orders Only [facility] CHC MED & PEDS [address] [place] [address] Tirso Mayfield MD [address] [place] [address] Erosion of bone (Primary Dx) Social History [...] AM EDT) Rheumatoid Factor <13.0 <15.0 IU/mL [facility] Blood Venous blood specimen / Unknown 08/08/2024 10:40 AM EDT 08/08/2024 1:17 PM EDT Tirso Jara MD LAB BLOOD ORDERABL ES Final Result Performing Organization Address [facility] de Phone Number [facility] [address] [place] [phone] * Cyclic Citrullinated Peptide (CCP) Antibody (IgG) (08/08/2024 10:40 AM EDT) Cyclic Citrullinated Peptide <16 UNITS [facility] Comment:Reference RangeNegat shalom: <20Weak Positive: 20-39Moderate Positive: 40-59Strong Positive: >59THIS TEST WAS PERFORMED AT:[facility] [place] [phone] RECINOS MD Blood Venous blood specimen / Unknown 08/08/2024 10:40 AM EDT 08/08/2024 1:17 PM EDT us Tirso Jara MD LAB BLOOD ORDERABL ES Final Result Performing Organization Address [facility] de Phone Number [facility] [address] [place] [phone] documented in this encounter Visit Diagnoses Diagnosis Erosion of bone- Primary documented in this encounter Additional Health Concerns Assessment Noted Time PHQ-9 Depression Total Score: 17 07/04/ 023 11:11 AM EDT documented as of this encounter Care Teams Drill Press Operator Numerical Control Relationship Specialty Start Date End Date Koki Vu MD [address] [place] [address] PCP - General Family Medicine 10/23/20 Addie Bi ConsultantAnhydrous Ammonia Production Supervisor 06/17/24 documented as of this encounter
--- OUTSIDE RECORDS SUMMARY | 2025-06-05 09:32 | XMS_ITS | Clinical Summary ---
Author Organization [employer] Address [address] [place] [address] [address] [place] [address] Care Team Providers Care Program Development Manager Name Role Phone Koki Vu MD Primary Care Provider [phone] Allergies Active Allergy Reactions Criticality Noted Date Comments Fremanezumab-Vfrm Rash Low 03/25/2025 Medications lactulose (Chronulac) 10 GM/15ML solution Take 30 mL by mouth in the morning. Active acetaminophen (Tylenol 8 Hour) 650 MG ER tablet Take 1 tablet by mouth every 8 (eight) hours. Active albuterol (ProAir HFA) 108 (90 Base) MCG/ACT inhaler Inhale 2 puffs every 4 (four) hours. Active busPIRone (Buspar) 15 MG tablet Take 15 mg by mouth 3 times daily. 023 Active cetirizine (ZyrTEC) 10 MG tablet TAKE 1 TABLET BY MOUTH EVERY DAY NEEDED FOR RASH Active EPINEPHrine (Epipen) 0.3 MG/0.3ML injection syringe Inject 0.3 mL into the shoulder, thigh, or buttocks. 022 Active Enbrel SureClick 50 MG/ML injection 023 [...] EXCEED 3 DOSES IN 24 HOURS. Active naloxone (Narcan) 4 mg/0.1 mL nasal [...] morning. Active cholecalciferol (Vitamin D-3) 50 MCG (1999 UT) tabletIndications :Vitamin D deficiency, unspecified TAKE 1 TABLET BY MOUTH EVERY DAY 30 tablet 11 Active sucralfate (Carafate) 1 GM/10ML suspension Take 10 mL (1 g) by mouth every 6 (six) hours. 414 mL 3 024 Active lidocaine (Lidoderm) 5 % patch APPLY 3 PATCHES TO SKIN DAILY FOR UP TO 12 HOURS, THEN REMOVE FOR 12 HOURS. 90 patch 5 Active levothyroxine (Synthroid, Levoxyl) 88 MCG tablet TAKE 1 TABLET BY MOUTH EVERY DAY IN THE MORNING 90 tablet 5 Active magnesium oxide (Mag-Ox) 400 (240 Mg) MG tablet Take 400 mg by mouth Once per day. Active riboflavin (Vitamin B-2) 400 MG tablet Take 1 tablet by mouth Once per day. Active triamcinolone (Kenalog) 0.1 % cream Mix with cerave cream and apply 1x/d 80 g 2 025 Active atorvastatin (Lipitor) 80 MG tabletIndications :Hyperlipidemia, unspecified hyperlipidemia type TAKE 1 TABLET BY MOUTH EVERY DAY AT BEDTIME 90 tablet 1 Active Ajovy 225 MG/1.5ML auto-injector INJECT 1.5 ML (225 MG) SUBCUTANEOUSLY ONCE EVERY 30 DAYS Active esomeprazole (NexIUM) [address] capsule Take 1 capsule by mouth Once per day. Active DULoxetine (Cymbalta) [address] capsule TAKE 1 CAPSULE BY MOUTH TWICE DAILY IN THE MORNING AND AT BEDTIME Active dicyclomine (Bentyl) 10 MG capsule Take 1 capsule by mouth every 6 (six) hours during the day. Active celecoxib (CeleBREX) 200 MG capsule Take 200 mg by mouth. Active Qulipta 60 MG tablet Take 60 mg by mouth. Active pregabalin (Lyrica) 225 MG capsule TAKE 1 CAPSULE BY MOUTH TWICE DAILY 60 capsule 1 025 Active pregabalin (Lyrica) 225 MG capsule TAKE 1 CAPSULE BY MOUTH TWICE DAILY 60 capsule 1 025 2024 Discontinued Active Problems Problem Noted Date Diagnosed Date DB (acute kidney injury) 04/04/2025 Bilateral occipital neuralgia 04/04/2025 Colitis 04/04/2025 Discogenic cervical pain 04/04/2025 Interstitial lung disease 04/04/2025 Lipoma of scalp 04/04/2025 Overview (04/04/2025): Status post excision. He is incision is well healed. His sutures were removed. His path report shows a lipoma. He may have a seroma on the area. I told him that I anticipate this to completely be resorb. He can follow up on a p.r.n. basis. Epigastric abdominal pain 04/04/2025 Encounter for monitoring immunomodulating therap y 04/04/2025 Kidney cysts 04/04/2025 Nonalcoholic steatohepatitis (CROSS) 04/04/2025 Osteoarthritis involving mul tiple joints on both sides of body 04/04/2025 Osteoarthritis of right hip 04/04/2025 Patellofemoral arthritis of right knee Piriformis syndrome of right side 04/04/2025 Sacroiliac joint pain 04/04/2025 Spinal stenosis at L4-L5 level 04/04/2025 Spondylosis of thoracic spine 04/04/2025 Spondylosis of lumbosacral s pine at multiple levels with radiculopathy 04/04/2025 Status post cardiac catheterization 04/04/2025 Overview (04/04/2025): 10/07/2021 normal coronary arteries Trochanteric bursitis of left hip 04/04/2025 Trochanteric bursitis of right hip 04/04/2025 Unilateral occipital headache 04/04/2025 Overview (04/04/2025): Increased headache Vocal cord dysfunction 04/04/2025 Neurogenic claudication 04/04/2025 Spondylosis of cervical dominick on without myelopathy or radiculopathy 04/04/2025 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 04/04/2025 COVID-19 04/04/2025 Schatzki's ring 04/04/2025 Cricopharyngeal achalasia 04/04/2025 Esophageal hiatal hernia 04/04/2025 Cervical osteophyte 04/04/2025 Annual physical exam 04/04/2025 Assessment & Plan (04/04/2025 2:53 PM EDT): 59 y.o. male here for annual physical examination Reviewed BMI and BP with patient. Nutritional recommendations: Recommended to decrease soda and sugary beverage consumption. Recommended at least 20 g per meal of protein to assist with satiety. Exercise recommendations: Recommended at least 150 min/week of moderate intensity exercise. screen done and reviewed Care Gaps reviewed IZ reviewed and discussed w/ patient Updated/reviewed PMH, Surghx, Family Hx & Social Hx Chronic migraine without aura 11/28/2024 Assessment & [...] symptoms do not improve within 1 month SOB (shortness of breath) 03/21/2024 Pityriasis rosea 09/11/2023 Assessment & Plan (09/11/2023 10:47 AM EST): Patient that presented visit with complaints of a rash will be sent for labs: Syphilis Screen. Will follow up with results. Food insecurity 07/04/2023 Assessment & Plan (07/04/2023 4:17 PM EDT): Pt reports that needs assistance with food -referred today to CM Hypertension 06/08/2023 Assessment & Plan (07/31/2023 9:31 [...] symptoms and follow up in 2 weeks. Left hip pain 12/14/2022 Assessment & Plan (12/14/2022 4:41 PM EST): Sent for L hip Xray and send to ortho for evaluation. Liver cyst 10/27/2022 Mild intermittent asthma 10/27/2022 Hypothyroid 07/12/2019 Assessment & Plan (12/14/2022 4:41 PM EST): Patient reports he needs new TSH border for band splitter referal placed in previous appointment. Assessment & [...] his request. Prediabetes 07/12/2019 Psoriatic arthritis 06/14/2019 Overview (04/04/2025): Methotrexate: dates unknown Enbrel: 06/2019-present Cervical radiculitis 09/06/2018 Memory impairment 05/30/2018 Gastro-esophageal reflux disease with esophagiti s 05/30/2018 Avascular necrosis of left femoral head 04/15/20 18 Overview (04/04/2025): Patient reports he side effect with fentanyl pump and that he does not have it. Patient reports he side effect with fentanyl pump and that he does not have it. Last Assessment & Plan: Admits he did not tolerate fentanyl pump and had it removed. Currently not on any medication for pain management. Assessment & Plan (05/15/2023 11:55 AM EDT): Admits he did not tolerate fentanyl pump and had it removed. Currently not on any medication for pain management. GERD (gastroesophageal reflux disease) 8 Severe recurrent major depression with psychotic features 12/11/2017 Assessment & Plan (07/04/2023 4:16 PM EDT): PHQ9: 17,denies SI Already f w psychiatrist and therapist at [facility] ---advised to continue care and may need eval if meds can be adjusted Chronic low back pain 12/11/2017 Assessment & Plan (06/13/2023 1:43 PM EDT): Not responsive to opiate medications. At this point will send a trial of Lyrica. Will need to proceed with PA for this. Resolved Problems Problem Noted Date Diagnosed Date Resolved Date Right arm cellulitis 06/29/2023 025 Assessment & Plan (07/04/2023 4:15 PM EDT): Complete resolution of right arm cellulitis tx initially w bactrim that completed for 5 days as well added azithromycin 06/29/2023 for systemic symptoms and possible cat scratch dx-already completed AT Assessment & Plan (06/29/2023 6:30 PM EDT): [...] -alarm signs and symptoms discussed w pt Upper airway obstruction due to foreign body 3 04/04/2025 Overview (04/04/2025): On CPAP. Assessment & Plan (05/15/2023 11:49 AM EDT): Will send for overnight oximetry for further evaluation. Steatosis of liver 01/29/2019 Encounters Date Type Department Care Team Description 05/28/2025 Orders Only [facility] External Provider, [facility] 05/28/2025 Refill [facility] [address] [place] [address] Koki Vu MD 04/14/2025 Telephone [facility] [address] [place] [address] Koki Vu MD Durable Medical Equipment 04/09/2025 Telephone [facility] [address] [place] [address] Koki Vu MD 04/04/2025 8:45 AM EDT Office Visit [facility] [address] [place] [address] Koki Vu MD Annual physical exam (Primary Dx); Prediabetes; 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; COVID-19; DB (acute kidney injury) ([facility]); Schatzki's ring; Cricopharyngeal achalasia; Esophageal hiatal hernia; Cervical osteophyte; Spinal stenosis at L4-L5 level; Trochanteric bursitis of left hip; Patellofemoral arthritis of right knee 04/04/2025 Orders Only GENER[facility] EXTERNAL DATA DEPARTMENT Provider, Generic External Data 04/04/2025 Travel 03/25/2025 Orders Only GENERIC EXTERNAL DATA DEPARTMENT Provider, Generic External Data 03/24/2025 Orders Only [facility] External Provider, [facility] 03/24/2025 Telephone [facility] [address] [place] [address] Koki Vu MD Med Refill 03/20/2025 Refill [facility] [address] [place] [address] Dimitri Rosa MD 03/06/2025 Telephone [facility] [address] [place], [place] [phone] Koki Vu MD Referral from Last 3 Months Immunizations Immunization Administration [...] Answer Date Recorded Patient Health Questionnaire-9 Score 16 04/04/2025 Patient Health Questionnaire-9 Score 16 04/04/2025 Last PHQ-9: Questionnaire Data Not on file 0 04/04/2025 Housing Stability Answer Date Recorded What is [...] got money to buy more: Never True 04/04/2025 Within the past 12 months,th e food [...] Answer Date Recorded Patient Health Questionnaire-2 Score 3 04/04/2025 Internet Access Answer Date Recorded Internet Access [...] Sign Reading Time Taken Comments Blood Pressure 120/70 04/04/2025 9:26 AM EDT Pulse 68 04/04/2025 9:00 AM EDT Temperature 36.8 C (98.2 F) 04/04/2025 9:00 AM EDT Respiratory Rate 20 04/04/2025 9:00 AM EDT Oxygen Saturation 97% 04/04/2025 9:00 AM EDT Inhaled Oxygen Concentration - - Weight 76.2 kg (168 lb) 04/04/2025 9:00 AM EDT Height 157.5 cm (5' 2 ) 04/04/2025 9:00 AM EDT Body Mass Index 30.73 04/04/2025 9:00 AM EDT Plan of Treatment Health Maintenance Due Date Last Done Comments CT Colonography 1965 FIT 1965 FOBT 1965 HIV Screening 1965 Sigmoidoscopy 1965 Disability Screening 1965 Hepatitis A Vaccines (2 of 2 - Risk 2-dose series) 02/12/2020 08/14/2019 COVID-19 Vaccine ( season) 2024 04/27/2022, 09/23/2021, 01/18/2021, Additional history exists Influenza Vaccine (#1) 2025 , 07/31/2023, 07/02/2021, Additional history exists Depression Monitoring 10/04/2025 04/04/2025, 025 Alcohol/Substance Use Screening 04/04/2026 04/04/2025 Diabetes: Hemoglobin A1C 04/04/2026 025, 01/14/2025, 05/15/2023, Additional history exists SDOH Screening 04/04/2026 04/04/2025 Tobacco Screening 04/04/2026 04/04/2025 Colorectal Cancer Screening 08/10/2026 FIT DNA/Cologuard 08/10/2026 08/10/2023 Colonoscopy 04/17/2028 04/17/2018 DTaP/Tdap/Td Vaccines (2 - Td or Tdap) 07/10/2029 07/10/2019 Lipid Panel 01/14/2030 01/14/2025, 07/0 05/2022, 04/20/2021 Zoster Vaccines Completed 06/27/2022, 04/25/2022 Pneumococcal Vaccine: 50+ Years Completed 02/01/2024, 06/07/2019 RSV Patients and Patients Aged 60 years or older Completed 02/16/2024 Hepatitis B Vaccines Completed 04/16/2024, 02/16/2024, 08/14/2019 Hepatitis C Screening Completed 08/13/2024 HIB Vaccines [...] Procedure Name Priority Date/Time Associated Diagnosis Comments US RENAL COMPLETE Routine 05/29/2025 2:5 5 PM EDT POCT GLYCATED HEMOGLOBIN, TOTAL Routine 04/04/2025 10:05 AM EDT Prediabetes POCT GLUCOSE Routine 04/04/2025 10:05 AM EDT Prediabetes C-REACTIVE PROTEIN Routine 04/04/2025 9: 53 AM EDT COMPREHENSIVE METABOLIC PANEL Routine 04/04/2025 9:53 AM EDT CBC WITH AUTO DIFFERENTIAL Routine 04/04/2025 9:53 AM EDT SED RATE BY MODIFIED WESTERGREN Routine 04/04/2025 8:[address] ABDOMEN PELVIS W CONTRAST Routine 03/25/2025 1:01 PM EDT SARS COV2/INFLUENZA A/B AND RSV RNA QL NAAT Routine 03/25/2025 12:06 PM EDT LIPASE Routine 03/25/2025 12:05 PM EDT BASIC METABOLIC PANEL Routine 03/25/2025 12:05 PM EDT HEPATIC FUNCTION PANEL Routine 12:05 PM EDT CBC WITH AUTO DIFFERENTIAL Routine 03/25/2025 12:05 PM EDT US THYROID Routine 03/24/2025 3:08 PM EDT LIPID PANEL, STANDARD Routine 01/14/2025 9:22 AM EDT Prediabetes HEPATITIS PANEL, GENERAL Routine 08/13/2024 11:49 AM EST LAB COLOGUARD COLON CANCER SCREEN Routine 08/10/2023 3:59 PM EDT Colon cancer screening HM COLONOSCOPY Routine 04/17/2018 6:07 AM EDT from Last 3 Months or Most Recently Relevant to Health Maintenance Results * US Renal Complete (05/29/2025 2:55 PM EDT) Anatomical Region Laterality Modality Kidney Ultrasound 05/29/2025 2:55 PM EDT Narrative 05/29/2025 2:56 PM EDT [place] [address] Ultrasound Report Signed Patient: Kvng Ramon MR#: [id number] : 1965 Acct:[id number] Age/Sex: 60 / M ADM Date: 05/28/25 Loc: HO.US Attending Dr: Juli GUAMAN Ordering Physician: Juli Han Date of Service: 05/28/25 Procedure(s): US renal BI Accession Number(s): [id number] cc: Juli Han; Koki Vu MD CLINICAL HISTORY: N20.0 - Calculus of kidney US renal with Color Doppler Comparison: US/SR - US KIDNEY BILATERAL - 05/28/24 09:07 EDT Findings: Right kidney normal size and echotexture, 9.5 cm length. No hydronephrosis, calculus or mass. Normal color flow. Left kidney normal size and echotexture, 10.2 cm length. No hydronephrosis. Normal color flow. Midpole cyst measuring 1.4 x 1.5 x 1.7 cm, previously measured 1.3 x 0.9 x 1.2 cm. Adjacent calcification measuring 5 mm, previously measuring 3 mm. Probable incidental hepatic cyst right lobe measuring 2.2 x 1.2 x 1.8 cm with an adjacent calcification. Impression: 1. Kidneys normal size and position with normal cortical width and echotexture. 2. Midpole cyst left kidney with an adjacent calcification has minimally increased in size. 3. Probable incidental hepatic cysts right lobe of the liver with an adjacent calcification can be correlated with prior CT. This document has been electronically signed by: Clint Kamara MD on 05/29/2025 14:55:44 Dictated By: Clint Kamara MD Signed By: <Electronically signed by Clint Kamara MD in OV> 05/29/25 1456 DD/ 54 TD/TT: 05/29/251454 Manager Of Quality: Procedure Note Donotuseinterpreter, Image - 05/29/2025 [place] [address] Ultrasound Report Signed Patient: Kvng Ramon EMR#: [id number] : 1965Acct:[id number] Age/Sex: 60 / MADM Date: 05/28/25 Loc: HO.US Attending Dr: Juli GUAMAN Ordering Physician: Juli Han Date of Service: 05/28/25 Procedure(s): US renal BI Accession Number(s): [id number] cc: Juli Han; Koki Vu MD CLINICAL HISTORY: N20.0 - Calculus of kidney US renal with Color Doppler Comparison: US/SR - US KIDNEY BILATERAL - 05/28/24 09:07 EDT Findings: Right kidney normal size and echotexture, 9.5 cm length. No hydronephrosis, calculus or mass. Normal color flow. Left kidney normal size and echotexture, 10.2 cm length. No hydronephrosis. Normal color flow. Midpole cyst measuring 1.4 x 1.5 x 1.7 cm, previously measured 1.3 x 0.9 x 1.2 cm. Adjacent calcification measuring 5 mm, previously measuring 3 mm. Probable incidental hepatic cyst right lobe measuring 2.2 x 1.2 x 1.8 cm with an adjacent calcification. Impression: 1. Kidneys normal size and position with normal cortical width and echotexture. 2. Midpole cyst left kidney with an adjacent calcification has minimally increased in size. 3. Probable incidental hepatic cysts right lobe of the liver with an adjacent calcification can be correlated with prior CT. This document has been electronically signed by: Clint Kamara MD on 05/29/2025 14:55:44 Dictated By: Clint Kamara MD Signed By: <Electronically signed by Clint Kamara MD in OV> 05/29/251455 DD/ 54 TD/TT: 05/29/251454 Manager Of Quality: [facility] External Provider IMG US PROCEDURES Final Result * (ABNORMAL) POCT HGB A1C (04/04/2025 10:05 AM EDT) Hemoglobin A1C 6.1(A) 4.0 - 5.7 % QC Media Lot # [id number] Comment:random Lot# Expiration Date [id number] Blood 04/04/2025 10:0 5 AM EDT Koki Vu MD POINT OF CARE TEST ENTER/EDIT ORDERABLES Final Result * POCT Glucose (04/04/2025 10:05 AM EDT) Pathologist [facility] Glucose Blood, POC 98 60 - 200 mg/dL QC Media Lot # [id number] Lot# Expiration Date ,912 Comment:random Blood Capillary blood specimen / Unknown 04/04/2025 10:05 AM EDT Result [facility] Koki Vu MD POINT OF CARE TEST ENTER/EDIT ORDERABLES Final Result * (ABNORMAL) CBC auto differential (04/04/2025 9:53 AM EDT) Only the most recent of2 resultswithin the time period is included. White Blood Count 6.1 4.8 - 10.8 X10*3/uL [facility] Red Blood Count 4.62 4.60 - 5.80 X10*6/uL [facility] Hemoglobin 14.2 14.0 - 18.0 g/dl [facility] Hematocrit 42.6 42.0 - 52.0 % [facility] Mean Corpuscular Volume 92.2 80.0 - 98.0 fL [facility] Mean Corpuscular Hemoglobin 30.7 27.0 - 33.0 pg [facility] Mean Corpuscular HGB Conc 33.3 31.0 - 36.0 g/dl [facility] Red Cell Distribution Width 14.4 11.0 - 16.0 % [facility] Platelet Count 428(H) 160 - 400 X10*3/uL [facility] Mean Platelet Volume 9.3(L) 9.4 - 12.4 fL [facility] Neutrophils Percent Auto 35.0(L) 45 - 73 % [facility] Imm Gran Pct Auto 0.7(H) 0.0 - 0.4 % [facility] Lymphocytes Percent Auto 52.3(H) 20 - 40 % [facility] Monocytes Percent Auto 8.5 2 - 11 % [facility] Eosinophils Percent Auto 3.0 0 - 4 % [facility] Basophils Percent Auto 0.5 0 - 2 % [facility] NRBC Pct Auto 0.0 0.0 - 0.2 /100WBC [facility] Neutrophils Absolute Auto 2.1 2.0 - 8.3 x10*3/uL [facility] Imm Gran Abs Auto 0.04(H) 0.00 - 0.03 X10*3/uL [facility] Lymphocytes Absolute Auto 3.2 1.2 - 4.9 X10*3/uL [facility] Monocytes Absolute Auto 0.5 0.1 - 1.2 X10*3/uL [facility] Eosinophils Absolute Auto 0.2 0.0 - 0.4 X10*3/uL [facility] Basophils Absolute Auto 0.0 0.0 - 0.2 X10*3/uL [facility] NRBC Abs Auto 0.000 0.0 - 0.012 X10*3/uL [facility] 04/04/2025 9:53 AM EDT 04/04/2025 2:10 PM EDT us Generic External Data Provider LAB BLOOD ORDERAB LES Final Result [facility] [address] [place] [phone] * C-reactive Protein (04/04/2025 9:53 AM EDT) C Reactive Protein 0.25 < or = 0.50 mg/dL [facility] 04/04/2025 9:53 AM EDT 04/04/2025 2:05 PM EDT us Generic External Data Provider LAB BLOOD ORDERAB LES Final Result [facility] [address] [place] [phone] [phone] * (ABNORMAL) Comprehensive Metabolic Panel (04/04/2025 9:53 AM EDT) Pathologist [facility] Sodium 140 135 - 145 mmol/L [facility] Potassium 4.0 3.3 - 5.1 mmol/L [facility] Chloride 107 96 - 108 mmol/L [facility] Carbon Dioxide 25 22 - 29 mmol/L [facility] Anion Gap 12 12 - 20 [facility] Urea Nitrogen (BUN) 14 9 - 16 mg/dL [facility] Creatinine, Serum 1.17 0.5 - 1.4 mg/dL [facility] Estimated Glomerular Filt Rate >60 [facility] Comment:Chronic Kidney Disea se: Estimated GFR < 60 mL/min/[id number] Kidney Disease: Estimated GFR < 15 mL/min/1.73m2 Glucose 88 60 - 115 mg/dL [facility] Calcium 9.0 8.4 - 10.2 mg/dL [facility] Bilirubin, Total 0.5 0.0 - 1.0 mg/dL [facility] Aspartate Amino Transferase 33 5 - 37 U/L [facility] Alanine Aminotransferase 72(H) 0 - 40 U/L [facility] Total Protein 7.0 6.5 - 8.0 g/dL [facility] Albumin Level 4.3 3.5 - 5.0 g/dL [facility] Alkaline Phosphatase 77 39 - 117 U/L [facility] 04/04/2025 9:53 AM EDT 04/04/2025 2:05 PM EDT Generic External Data Provider LAB BLOOD ORDERAB LES Final Result Performing Organization Address [facility] Co de Phone Number [facility] [address] [place] [phone] * Sed Rate by Modified Westergren (04/04/2025 8:53 AM EDT) Erythrocyte Sedimentation Rate 5 0 - 15 MM/HR [facility] Comment:Patients with polycy themia and many hemoglobin abnormalitiesmay have depressed sed rates whereas patients with anemiamay have elevated sed rates. 04/04/2025 8:53 AM EDT 04/04/2025 2:05 PM EDT Generic External Data Provider LAB BLOOD ORDERAB LES Final Result Performing Organization Address [facility] Co de Phone Number [facility] [address] [place] [phone] * CT Abdomen Pelvis w/ Contrast (03/25/2025 1:01 PM EDT) Anatomical Region Laterality Modality Body, Pelvis, Abdomen Computed T omography 03/25/2025 1:01 PM EDT Narrative 03/25/2025 2:36 PM EDT [address] [address] [address] Scan Report Signed Patient: Kvng Ramon MR#: [id number] : 1965 Acct:[id number] Age/Sex: 59 / M ADM Date: 03/25/25 Loc: .ED Attending Dr: Ordering Physician: Goldy Morton MD Date of Service: 03/25/25 Procedure(s): CT abdomen pelvis w IV con Accession Number(s): [id number] cc: Goldy Morton MD; Koki Vu MD Report Number: [id number]: Total DLP = 601.00 mGy-cm EXAMINATION: CT ABDOMEN AND PELVIS WITH CONTRAST CLINICAL INFORMATION: Abdominal pain. COMPARISON: December 31, 2023. TECHNIQUE: Multidetector volumetric images were obtained from the superior aspect of the liver through the pubic symphysis following administration 85 mL of Omnipaque 350 intravenous contrast. Sagittal and coronal reformatted images were obtained on the technologist's workstation. Oral contrast: No This CT examination was performed using dose optimization techniques as appropriate, variously including the following: *Automated exposure control *Adjustment of mA and/or kV according to patient size (this includes techniques or standardized protocols for targeted exams where dose is matched to indication/reason for exam; i.e. extremities or head) *Use of iterative reconstruction technique. DLP: 601 mGy centimeter. FINDINGS: LUNG BASES: No acute airspace disease. LIVER, GALLBLADDER, AND BILIARY TREE: Liver measures 16 cm. Multifocal well-defined fluid density lesions, the largest measures 2.5 cm in the right hepatic lobe. The main portal vein, hepatic veins and intrahepatic portion of the IVC are patent. No intrahepatic biliary ductal dilatation. No pericholecystic fluid collection or gallbladder wall thickening. Common bile duct measures 3 mm. PANCREAS: No focal lesion. No main pancreatic ductal dilatation. No peripancreatic fluid collection. SPLEEN: 8 cm. No focal lesion. ADRENAL GLANDS: No nodular lesion. KIDNEYS AND URETERS: No hydronephrosis. No gross nephrolithiasis. Multifocal cystic lesions, the largest in the left kidney measures 1.5 cm. BLADDER: Fluid-filled. GASTROINTESTINAL TRACT: There is a concentric wall thickening involving the right hemicolon from the cecum to the transverse colon. There are few scattered diverticula in the transverse colon and sigmoid colon. There is mild pericolonic edema pattern. The appendix is normal. No ascites. No peripheral enhancing fluid collection. No pneumatosis intestinalis. No pneumoperitoneum. ABDOMINAL WALL: Small fat-containing umbilical and inguinal hernias. Posttreatment changes in the inguinal scrotal canals. LYMPH NODES: Prominent lymph nodes in the mesentery involving mostly the mesocecum. VASCULAR: No aneurysm or dissection, abdominal aorta. PELVIC VISCERA: Dystrophic calcifications without gross enlargement. Hyperdensities/calcifications, penile OSSEOUS STRUCTURES: Sclerotic marginated lytic abnormality in the left femoral head without gross volume loss. Multilevel thoracolumbar spondylosis without acute fracture or gross listhesis. Decreased intervertebral disc height at L5-S1. CT/CT abdomen pelvis w IV con IMPRESSION: Acute colitis without intestinal obstruction pattern nor abscesses or perforation. Inflammatory bowel disease cannot be excluded. Multifocal hepatic cystic lesions. Bosniak type I/type II cystic lesion, left kidney. Diverticular disease. Avascular necrosis, left femoral head, old. Fleischner guidelines were followed. Electronically signed by: Jakob Sibley MD 03/25/2025 02:33 PM EDT Dictated By: Jakob Lee MD Signed By: <Electronically signed by Jakob Mcfadden MD in OV> 03/25/25 1433 DD/ 1301 TD/TT: 03/25/25 1419 Manager Of Quality: Procedure Note Donotuseinterpreter, Image - 03/25/[address] [place] [address] [address] Scan Report Signed Patient: Kvng Ramon EMR#: [id number] : 1965Acct:[id number] Age/Sex: 59 / MADM Date: 03/25/25 Loc: HO.ED Attending Dr: Ordering Physician: Goldy Morton MD Date of Service: 03/25/25 Procedure(s): CT abdomen pelvis w IV con Accession Number(s): [id number] cc: Goldy Morton MD; Koki Vu MD Report Number: [id number]: Total DLP = 601.00 mGy-cm EXAMINATION: CT ABDOMEN AND PELVIS WITH CONTRAST CLINICAL INFORMATION: Abdominal pain. COMPARISON: December 31, 2023. TECHNIQUE: Multidetector volumetric images were obtained from the superior aspect of the liver through the pubic symphysis following administration 85 mL of Omnipaque 350 intravenous contrast. Sagittal and coronal reformatted images were obtained on the technologist's workstation. Oral contrast: No This CT examination was performed using dose optimization techniques as appropriate, variously including the following: *Automated exposure control *Adjustment of mA and/or kV according to patient size (this includes techniques or standardized protocols for targeted exams where dose is matched to indication/reason for exam; i.e. extremities or head) *Use of iterative reconstruction technique. DLP: 601 mGy centimeter. FINDINGS: LUNG BASES: No acute airspace disease. LIVER, GALLBLADDER, AND BILIARY TREE: Liver measures 16 cm. Multifocal well-defined fluid density lesions, the largest measures 2.5 cm in the right hepatic lobe. The main portal vein, hepatic veins and intrahepatic portion of the IVC are patent. No intrahepatic biliary ductal dilatation. No pericholecystic fluid collection or gallbladder wall thickening. Common bile duct measures 3 mm. PANCREAS: No focal lesion. No main pancreatic ductal dilatation. No peripancreatic fluid collection. SPLEEN: 8 cm. No focal lesion. ADRENAL GLANDS: No nodular lesion. KIDNEYS AND URETERS: No hydronephrosis. No gross nephrolithiasis. Multifocal cystic lesions, the largest in the left kidney measures 1.5 cm. BLADDER: Fluid-filled. GASTROINTESTINAL TRACT: There is a concentric wall thickening involving the right hemicolon from the cecum to the transverse colon. There are few scattered diverticula in the transverse colon and sigmoid colon. There is mild pericolonic edema pattern. The appendix is normal. No ascites. No peripheral enhancing fluid collection. No pneumatosis intestinalis. No pneumoperitoneum. ABDOMINAL WALL: Small fat-containing umbilical and inguinal hernias. Posttreatment changes in the inguinal scrotal canals. LYMPH NODES: Prominent lymph nodes in the mesentery involving mostly the mesocecum. VASCULAR: No aneurysm or dissection, abdominal aorta. PELVIC VISCERA: Dystrophic calcifications without gross enlargement. Hyperdensities/calcifications, penile OSSEOUS STRUCTURES: Sclerotic marginated lytic abnormality in the left femoral head without gross volume loss. Multilevel thoracolumbar spondylosis without acute fracture or gross listhesis. Decreased intervertebral disc height at L5-S1. CT/CT abdomen pelvis w IV con IMPRESSION: Acute colitis without intestinal obstruction pattern nor abscesses or perforation. Inflammatory bowel disease cannot be excluded. Multifocal hepatic cystic lesions. Bosniak type I/type II cystic lesion, left kidney. Diverticular disease. Avascular necrosis, left femoral head, old. Fleischner guidelines were followed. Electronically signed by: Jakob Sibley MD 03/25/2025 02:33 PM EDT Dictated By: Jakob Lee MD Signed By: <Electronically signed by Jakob Mcfadden MDin OV> 03/25/25 1433 DD/ 1301 TD/TT: 03/25/25 1419 Manager Of Quality: [facility] External Provider IMG CT PROCEDURES Final Result * (ABNORMAL) SARS-CoV-2 RNA, Influenza A/B, and RSV RNA, Ql NAAT (03/25/2025 12:06 PM EDT) Influenza A PCR NEGATIVE Negative [facility] Influenza B PCR NEGATIVE Negative [facility] Resp Syncy Virus RNA Qual PCR NEGATIVE Negative [facility] SARS COV2 PCR POSITIVE(A) Negative [facility] Comment:All test results mus t be correlated with clinical findings.Negative results do not preclude SARS-CoV2, influenza Avirus, influenza B virus and/or RSV infectionand should not be used as the sole basis for treatment orother patient management decisions. Negative results must becombined with clinical observations, patient history, andepidemiological information.This test has not been evaluated for monitoring treatment ofinfection.This test has been authorized by the FDA under an EmergencyUse Authorization (EUA) for use by authorized laboratories.Testing performed on the [employer] GeneXpert utilizingreal-time RT-PCR.All SARS CoV2 and positive influenza A/B results arereported to [facility]. 03/25/2025 12:0 6 PM EDT 03/25/2025 12:14 PM EDT Generic External Data Provider LAB MICROBIOLOGY - GENERAL ORDERABLES Final Result [facility] [address] [place] [phone] [phone] * Lipase (03/25/2025 12:05 PM EDT) Lipase 21 8 - 78 U/L [facility] 03/25/2025 12:0 5 PM EDT 03/25/2025 12:14 PM EDT Generic External Data Provider LAB BLOOD ORDERAB LES Final Result Performing Organization Address [facility] de Phone Number [facility] [address] [place] [phone] * Hepatic Function Panel (03/25/2025 12:05 PM EDT) Bilirubin, Total 0.5 0.0 - 1.0 mg/dL [facility] Bilirubin, Direct 0.2 0.0 - 0.5 mg/dL [facility] Aspartate Amino Transferase 37 5 - 37 U/L [facility] Comment:Slight Hemolysis.Int erpret result with caution. Alanine Aminotransferase 29 0 - 40 U/L [facility] Total Protein 7.1 6.5 - 8.0 g/dL [facility] Albumin Level 4.2 3.5 - 5.0 g/dL [facility] Alkaline Phosphatase 71 39 - 117 U/L [facility] 03/25/2025 12:0 5 PM EDT 03/25/2025 12:14 PM EDT Generic External Data Provider LAB BLOOD ORDERAB LES Final Result Performing Organization Address [facility] de Phone Number [facility] [address] [place] [phone] * (ABNORMAL) Basic Metabolic Panel (03/25/2025 12:05 PM EDT) Pathologist [facility] Sodium 138 135 - 145 mmol/L [facility] Potassium 3.9 3.3 - 5.1 mmol/L [facility] Comment:Slight Hemolysis.Int erpret result with caution. Chloride 112(H) 96 - 108 mmol/L [facility] Carbon Dioxide 19(L) 22 - 29 mmol/L [facility] Anion Gap 11(L) 12 - 20 [facility] Urea Nitrogen (BUN) 16 9 - 16 mg/dL [facility] Creatinine, Serum 1.42(H) 0.5 - 1.4 mg/dL [facility] Creatinine Clr Calc Pharmacy 52.2 [facility] Comment:eGFR (calculated fro m the MDRD study equation) and eCrCl(calculated from the Cockcroft-Gault equation) are based ondifferent parameters and may not yield comparable results.If eCrCl result is absurd, please check patient'sheight/weight. Estimated Glomerular Filt Rate 51 [facility] Comment:Chronic Kidney Disea se: Estimated GFR < 60 mL/min/[id number] Kidney Disease: Estimated GFR < 15 mL/min/1.73m2 Glucose 92 60 - 115 mg/dL [facility] Calcium 9.2 8.4 - 10.2 mg/dL [facility] 03/25/2025 12:0 5 PM EDT 03/25/2025 12:14 PM EDT us Generic External Data Provider LAB BLOOD ORDERAB LES Final Result Performing Organization Address City/State/[facility] Co de Phone Number [facility] [address] [place] [phone] * US Thyroid (03/24/2025 3:08 PM EDT) Anatomical Region Laterality Modality Head, Neck Ultrasound 03/24/2025 3:08 PM EDT Narrative 03/24/2025 3:56 PM EDT [address] [address] Ultrasound Report Signed Patient: Kvng Ramon MR#: [id number] : 1965 Acct:[id number] Age/Sex: 59 / M ADM Date: 03/24/25 Loc: HO.US Attending Dr: Luz Good MD Ordering Physician: Luz Good MD Date of Service: 03/24/25 Procedure(s): US thyroid Accession Number(s): [id number] cc: Luz Good MD; Koki Vu MD EXAMINATION: US THYROID CLINICAL INFORMATION: Hypothyroidism COMPARISON: None available. TECHNIQUE: Linear transducer grayscale and color Doppler examination with attention to the region of the thyroid. FINDINGS: SIZE: Measurements of the thyroid lobes and nodules are given in sagittal, anteroposterior and transverse dimensions respectively. Right Thyroid Lobe: 3.8 x 1.9 x 1.2 cm, volume 4.4 mL. Parenchyma: The gland echotexture is homogeneous. Thyroid vascularity is normal. Left Thyroid Lobe: 3.1 x 1.4 x 1.2 cm, volume 2.6 mL. Parenchyma: The gland echotexture is homogeneous. Thyroid vascularity is normal. Isthmus: 0.2 cm in maximum AP dimension. There are no nodules. NODES: No lymphadenopathy is seen in the tissue surrounding the thyroid gland. US/US thyroid IMPRESSION: 1. Normal thyroid ultrasound. Electronically signed by: Kenny Ho MD 03/24/2025 03:53 PM EDT RP Dictated By: Kenny Ho MD Signed By: <Electronically signed by Kenny Ho MD in OV> 03/24/25 1553 DD/ 1508 TD/TT: 03/24/25 1521 Manager Of Quality: Procedure Note Donotuseinterpreter, Image - 03/24/2025 [place] [address] Ultrasound Report Signed Patient: Kvng Ramon EMR#: [id number] : 1965Acct:[id number] Age/Sex: 59 / MADM Date: 03/24/25 Loc: HO.US Attending Dr: Luz Good MD Ordering Physician: Luz Good MD Date of Service: 03/24/25 Procedure(s): US thyroid Accession Number(s): [id number] cc: Luz Good MD; Koki Vu MD EXAMINATION: US THYROID CLINICAL INFORMATION: Hypothyroidism COMPARISON: None available. TECHNIQUE: Linear transducer grayscale and color Doppler examination with attention to the region of the thyroid. FINDINGS: SIZE: Measurements of the thyroid lobes and nodules are given in sagittal, anteroposterior and transverse dimensions respectively. Right Thyroid Lobe: 3.8 x 1.9 x 1.2 cm, volume 4.4 mL. Parenchyma: The gland echotexture is homogeneous. Thyroid vascularity is normal. Left Thyroid Lobe: 3.1 x 1.4 x 1.2 cm, volume 2.6 mL. Parenchyma: The gland echotexture is homogeneous. Thyroid vascularity is normal. Isthmus: 0.2 cm in maximum AP dimension. There are no nodules. NODES: No lymphadenopathy is seen in the tissue surrounding the thyroid gland. US/US thyroid IMPRESSION: 1. Normal thyroid ultrasound. Electronically signed by: Kenny Ho MD 03/24/2025 03:53 PM EDT Dictated By: Kenny Ho MD Signed By: <Electronically signed by Kenny Ho MD in OV> 03/24/25 1553 DD/ 1508 TD/TT: 03/24/25 1521 Manager Of Quality: us [facility] External Provider IMG US PROCEDURES Final Result * (ABNORMAL) Lipid Panel, Standard (01/14/2025 9:22 AM EDT) Triglycerides 86 <150 mg/dL [facility] Comment:Desirable Triglyceri de: less than 150 mg/dLBorderline High Triglyceride 150-199 mg/dLHigh Triglyceride: 200-499 mg/dLVery High Triglyceride: greater than or equal to 5OO mg/dL Cholesterol 193 <200 mg/dL [facility] Comment:Desirable Cholestero l: less than 200 mg/dLBorderline High Cholesterol: 200-239 mg/dLHigh Cholesterol: greater than 239 mg/dL LDL Cholesterol Calculated 134(H) <100 mg/dL [facility] Comment:Desirable LDL: less than 100 mg/dLNear Optimal/Above Optimal LDL: 110- 129 mg/dLBorderline High LDL: 130-159 mg/dLHigh LDL: 160-189 mg/dLVery High LDL: greater than or equal to 190 mg/dL HDL Cholesterol 42 >40 mg/dL [facility] Comment:Desirable HDL: great er than 40 mg/dL Note: This HDL assay may give artificially low results in patients with liver disease. Blood Venous blood specimen / Unknown 01/14/2025 9:22 AM EDT 01/14/2025 2:06 PM EDT us Josee Collazo MD LAB BLOOD ORDERABLES Final Resul t Performing Organization Address City/[facility]/ZIP Co de Phone Number [facility] [address] [place] [phone] * Hepatitis Panel, General (08/13/2024 11:49 AM EST) Pathologist [facility] Hepatitis A IgM Nonreactive Nonreactive [facility] Comment:IgM antibodies to TORREZ V not detected; does not exclude earlyacute or recovered HAV infection. ~Hepatitis B Surface Antibody NONREACTIVE Nonreactive [facility] Comment:Nonreactive: < 8.00 mIU/mL Hepatitis B Core Antibody Nonreactive Nonreactive [facility] Hepatitis C Antibody Nonreactive Nonreactive [facility] Comment:Antibodies to HCV no t detected; does not exclude early acuteHCV infection. Hepatitis B Surface Ag Negative Negative [facility] 08/13/2024 11:4 9 AM EST 08/13/2024 11:49 AM EST us Generic External Data Provider LAB BLOOD ORDERAB LES Final Result Performing Organization Address City/[facility]/ZIP Co de Phone Number [facility] [address] [place] [phone] * Cologuard?? colon cancer screening (08/10/2023 3:59 PM EDT) Cologuard Result Negative Negative 08/17/20 9:57 AM EST [facility] (CLIA #:[id number]) Comment: NEGATIVE TEST RESULT. A negative Cologuard result indicates a low likelihood that a colorectal cancer (CRC) or advanced adenoma (adenomatous polyps with more advanced pre-malignant features) is present. The chance that a person with a negative Cologuard test has a colorectal cancer is less than 1 in 1500 (negative predictive value >99.9%) or has an advanced adenoma is less than 5.3% (negative predictive value 94.7%). These data are based on a prospective cross-sectional study of 10,000 individuals at average risk for colorectal cancer who were screened with both Cologuard and colonoscopy. (Harris Albarran al, N Engl J Med 2014;370(14):9175-4080) The normal value (reference range) for this assay is negative. COLOGUARD RE-SCREENING RECOMMENDATION: Periodic colorectal cancer screening is an important part of preventive healthcare for asymptomatic individuals at average risk for colorectal cancer. Following a negative Cologuard result, the [place] [employer] and U.S. Multi-Society Task Force screening guidelines recommend a Cologuard re-screening interval of 3 years. References: [place] [employer] Guideline for Colorectal Cancer Screening: https://www.cancer.org/cancer/nhcuy-ranaht-magyxi/eqtffrmer-rfppxmric-mxkcoik/ac s-rec ommendations.html.; Delroy MULLIGAN, Rere OTERO, Guy RochaK, Colorectal Cancer Screening: Recommendations for Physicians and Patients from the U.S. Multi-Society Task Force on Colorectal Cancer Screening , Am J Gastroenterology 2017; 112:3527-4716. TEST DESCRIPTION: Composite algorithmic analysis of stool DNA-biomarkers with hemoglobin immunoassay. Quantitative values of individual biomarkers are not [...] colonoscopy. (Harris Lara, N Engl J Med 2014;370(14):7603-7359.) Cologuard may produce a false negative or false positive result (no colorectal cancer or precancerous polyp present at colonoscopy follow up). A negative Cologuard test result does not guarantee the absence of CRC or advanced adenoma (pre-cancer). The current Cologuard screening interval is every 3 years. ([place] [employer] and U.S. Multi-Society Task Force). Cologuard performance data in a 10,000 patient pivotal study using colonoscopy as the reference method can be accessed at the following location: www.[employer] Images/results. Additional description of the Cologuard test process, warnings and precautions can be found at www.cologuard.com. Stool specimen (specimen) 08/10/2023 3:59 PM EDT 08/11/2023 6:19 PM EDT Koki Vu MD LAB MOLECULAR DIAGNOSTICS ORD ERABLES Final Result [facility] (CLIA #:[id number]) [place] [address], * Hm Colonoscopy (04/17/2018 6:07 AM EDT) Historical Provider HEALTH MAINTENANCE Final Result from Last 3 Months or Most Recently Relevant to Health Maintenance Insurance [facility] C3 Care Teams Program Development Manager Relationship Specialty Start Date End Date Koki Vu MD [address] [place] [phone] PCP - General Family Medicine 10/23/20 Addie Cataract Lens GeneratorDirector Environmental 06/17/24
--- OUTSIDE RECORDS SUMMARY | 2025-06-05 09:32 | XMS_ITS | Clinical Summary ---
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 Psoriatic [...] ne, 13 Valent 06/07/2019 Pneumococcal conjugate PCV20,polysaccharide GIJ857 conjugate, adjuvant, PF (Prevnar 20) 02/01/2024 RSV, [...] B Vaccines Completed 04/16/2024, 02/16/2024, 08/14/2019 Insurance Spontly Care Teams Information Technology Technician Relationship Specialty Start Date End Date Koki Vu [address] [place] [address] [place] [phone] PCP - General 12/26/23
--- OUTSIDE RECORDS SUMMARY | 2025-06-05 09:32 | XMS_ITS | Encounter Summary ---
Author Organization [employer] Address [address] [place] [address] [address] [place] [address] Care Team Providers Care Legal Executive Name Role Phone Koki Vu MD Primary Care Provider [phone] Reason for Visit * Reason Onset Date Comments Med Refill 03/24/2025 Encounter Details Date Type Department Care Team ([facility] Contact Info) Description 03/24/2025 Telephone [facility] MED & PEDS [address] [place] [address] Koki Vu MD [address] [place] [address] Med Refill Social History Tobacco Use Types Packs/Day Years [...] encounter Miscellaneous Notes * Telephone Encounter - Lidia Deutsch LPN - 03/24/2025 10:52 AM EDT Medication was sent to [facility] on 03/21/25. * Telephone Encounter - Barbara Pollard - 03/24/2025 10:50 AM EDT TC from pt requesting medication refill. Medications needing refill : pregabalin (Lyrica) 225 MG capsule To be sent to: [facility] - [place], [place] - [address] [place] [address] documented in this encounter Plan of Treatment Not on file documented as of this encounter Visit Diagnoses Not on filedocumented in this encounter Additional Health Concerns Assessment Noted Time PHQ-9 Depression Total Score: 17 023 11:11 AM EDT documented as of this encounter Care Teams Legal Executive Relationship Specialty Start Date End Date Koki Vu MD [address] [facility] [place] [address] PCP - General Family Medicine 10/23/20 Addie It Help Desk AnalystTelephone Surveyor 06/17/24 documented as of this encounter
--- OUTSIDE RECORDS SUMMARY | 2025-06-05 09:32 | XMS_ITS | Encounter Summary ---
Author Organization [employer] Address [address] [facility] [address]t [place] [address] Care Team Providers Care Supervisor Agency Appointments Name Role Phone Koki Vu MD Primary Care Provider [phone] Reason for Visit * Reason Comments Med Refill Encounter Details Date Type Department Care Team ([facility] st Contact Info) Description 10/25/2023 Refill [facility] CH[facility] MED & PEDS [address] [place] [address] Koki Vu MD [address] [place] [address] Social History Tobacco Use Types Packs/Day Years [...] as of this encounter Care Teams Supervisor Agency Appointments Relationship Specialty Start Date End Date Koki Vu MD [address] [place] [phone] PCP - General Family Medicine 10/23/20 Addie Independent ConsultantPolice Records Clerk 06/17/24 documented as of this encounter
--- OUTSIDE RECORDS SUMMARY | 2025-06-05 09:32 | XMS_ITS | Clinical Summary ---
Author Organization [facility] Address [address] [place] [address] Care Team Providers Care Pinmaker Name Role Phone Unavailable Primary Care Provider [...] to complete this topic , [address] [place] [address]
--- OUTSIDE RECORDS SUMMARY | 2025-06-05 09:32 | XMS_ITS | Encounter Summary ---
Author Organization [employer] Address [address] [place] [address] [address] [place] [address] Care Team Providers Care Heavy Forging Machine Operator Name Role Phone Koki Vu MD Primary Care Provider [phone] Reason for Visit * Reason Onset Date Comments Durable Medical Equipment 02/07/2024 Encounter Details Date Type Department Care Team ([facility] st Contact Info) Description 02/07/2024 Telephone [facility] MED & PEDS [address] [place] [address] Koki Vu MD [address] [place] [address] Durable Medical Equipment Social History Tobacco Use [...] documented as of this encounter Care Teams Heavy Forging Machine Operator Relationship Specialty Start Date End Date Koki Vu MD [address] [place] [address] PCP - General Family Medicine 10/23/20 Addie Production InspectorXerox Machine Mechanic 06/17/24 documented as of this encounter
--- OUTSIDE RECORDS SUMMARY | 2025-06-05 09:32 | XMS_ITS | Encounter Summary ---
Author Organization [employer] Address [address] [facility] [address] [place] [address] Care Team Providers Care Dopster Name Role Phone Koki Vu MD Primary Care Provider [phone] Reason for Visit * Reason Comments Med Refill Encounter Details Date Type Department Care Team ([facility] st Contact Info) Description 03/28/[address] [facility] MED & PEDS [address] [place] [address] Koki Vu MD [address] [place] [address] Social History Tobacco Use Types Packs/Day Years [...] documented as of this encounter Care Teams Dopster Relationship Specialty Start Date End Date Koki Vu MD [address] [place] [phone] PCP - General Family Medicine 10/23/20 Addie Assistant Professor Of PsychologyRound Up Ring Hand 06/17/24 documented as of this encounter
[2025-06-05 10:27] LABS: Anion Gap 9 (12-20); Blood Urea Nitrogen 15 mg/dL (9-16); Calcium 9.3 mg/dL (8.4-10.2); Carbon Dioxide 28 mmol/L (22-29); Chloride 109 mmol/L (96-108); Estimated Glomerular Filt Rate 59; Potassium 4.4 mmol/L (3.3-5.1); Sodium 142 mmol/L (135-145)
[2025-06-05 10:39] LABS: Prostate Specific Antigen 0.68 ng/mL (<0.05-4.0)
== END 2025-06-05 08:48 | disposition home or self-care (01) ==
LOC: HO.LAB 08:47
PROVIDERS: PCP Family Medicine; Visit Provider Nurse Practitioner Family
DX: N17.9 Acute kidney failure, unspecified (principal); N40.0 Benign prostatic hyperplasia without lower urinary tract symptoms
CPT/HCPCS: 36415; 80048; 84153

== ENCOUNTER 2025-06-10 08:38 | Outpatient (AMB) | payer MEDICAID, SELFPAY ==
--- NOTE | 2025-06-10 08:43 | MHC.OFFVIS ---
Intake Visit Reasons: follow up/US/PSA Intake Note: Patient is present for US/PSA F/U Urology Medication:NONE Antibiotic Allergy:NONE Blood Thinner:NONE Cutter Plastics Rolls Required: Yes Cutter Plastics Rolls Name: Srinivas Eaton Allergies [id number] (From [employer] Autoinjector) Allergy (Unknown, Verified 06/10/25 09:00) Rash opiods Allergy (Unknown, Uncoded 06/10/25 09:00) Rash Medication List - Last Reconciled 06/10/25 by ROWENA Sanders albuterol sulfate 90 mcg/actuation (Ventolin HFA) 2 puffs inhalation Q4H PRN atogepant (Qulipta) 60 mg PO DAILY azithromycin 500 mg PO DAILY 3 days buspirone 10 mg PO TID celecoxib (Celebrex) 200 mg PO BID PRN cholecalciferol (vitamin D3) 50 mcg PO DAILY diclofenac sodium 1% (Voltaren Arthritis Pain) 2 grams topical QID PRN dicyclomine 10 mg PO TID duloxetine 20 mg PO esomeprazole magnesium 40 mg PO DAILY etanercept (Enbrel SureClick) 50 mg subcut QWEEK fluticasone propion-salmeterol 250-50 mcg/dose (Advair Diskus) 1 ea PO BID fluticasone propionate 50 mcg/actuation 1 spray intranasal DAILY guaifenesin ER (Mucinex) 1,200 mg PO BID levothyroxine 88 mcg PO DAILY@0600 lidocaine 5% 1 patch topical DAILY PRN loratadine 10 mg PO DAILY magnesium oxide 400 mg PO DAILY polyethylene glycol 3350 (ClearLax) 17 grams PO BID PRN pregabalin 225 mg PO BID riboflavin (vitamin B2) 400 mg PO DAILY 90 days sucralfate 10 mL PO BID sumatriptan succinate 50 - 100 mg orally at onset of headache, may repeat in 2 hrs PRN; max 2 tabs per day or 4 tabs/week (may take with Tylenol) 30 days HPI Comments Details: Kvng is a very pleasant 60-year-old [place]raini-speaking male patient of Dr. Vu. He has a past medical history of asthma, chronic pain, fibromyalgia, degenerative disc disease, depression, fatty liver, hypertension, hypothyroidism, kidney cysts, mood disorder, DAYNA on CPAP, pre diabetes,and psoriasis. He is being followed up on today via telehelath for his renal cyst, nephrolithiasis, and surveillance monitoring of PSA. In discussion with the patient today reports to be doing and feeling well. He denies having had any bothersome urinary issues or concerns since his last office visit here over a year ago. Recent renal imaging results were reviewed. 06/02 bilateral kidneys are normal in size and position. Mid pole cyst left kidney with an adjacent calcification has minimally increased in size. PSAs are as follows: 05/31 0.8, 06/01 0.6, 06/02 0.7 When asked he denies urinary urgency, urinary frequency, incontinence, nocturia, hematuria, dysuria, foul smelling urine, changes to urinary stream, flank pain, fever, and or chills. He is happy with his current voiding parameters. We discussed surveillance monitoring of renal cysts, nephrolithiasis, and PSAs. All questions were answered. He otherwise denies any other issues or concerns. 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 Venous congestion Pain in right lower leg Lipoma of scalp Kidney cysts Spondylosis of thoracic spine Spondylosis of lumbar spine Schatzki's ring Fatty liver HTN (hypertension) Pre-diabetes Dysphagia Asthma Hx of chest pain DAYNA on CPAP Hypothyroid Psoriasis Psoriatic arthritis Chronic pain Mood disorder Depression Avascular necrosis Chronic pain syndrome Spondylosis of lumbar region without myelopathy or radiculopathy Spondylosis, cervical Degeneration, intervertebral disc, cervical Surgical History History of back surgery History of surgery Status post excision of lipoma (~10/21/21) Status post cardiac catheterization Hx of cardiac cath H/O neck surgery Hx of hand surgery Hx of endoscopy History of colonoscopy Family History Father Cirrhosis Alcoholism Mother Diabetes HTN (hypertension) Parkinson disease Brother Cirrhosis Alcoholism Social History Household Members: Spouse and Children Housing: House Are you a primary home care physical therapist to a significant other at home: No Do you presently have visiting nurse or other home services: Yes Alcohol intake: never Patient Tobacco Use Status: Never used Tobacco Tobacco use type: Cigarette Second Hand Smoke Exposure: No service: No Current occupational status: disabled Current occupation: rt handed Review of Systems Const All systems reviewed & are unremarkable except as noted in HPI and below Reports as per HPI Eyes Reports no additional complaints ENT Reports no additional complaints Card Reports as per HPI Resp Reports as per HPI GI Reports as per HPI Reports as per HPI Musc Reports as per HPI Neuro Reports as per HPI Endo Reports as per HPI Physical Exam Const General: cooperative Limitations: language barrier Resp Effort & Inspection: able to speak in complete sentences Psych Attitude: cooperative Thought content: Normal thought content present Insight: Fair insight present (Psych) Judgement: Fair judgement present (Psych) Telehealth Telehealth Telehealth Platform: Telephone Location of provider rendering services: practice address Location of patient: address on file Patient Identification confirmed using: Name, : Yes Telehealth method: voice only Patient verbally consented to treatment: Yes Patient verbally consented to billing insurance company: Yes Patient informed of any privacy concerns related to visit: Yes Minutes spent on Phone/Video with Pt.: 15 Results Reviewed Results Reviewed: Date of Service: 05/28/25 Procedure(s): US renal BI Findings: Right kidney normal size and echotexture, 9.5 cm length. No hydronephrosis, calculus or mass. Normal color flow. Left kidney normal size and echotexture, 10.2 cm length. No hydronephrosis. Normal color flow. Midpole cyst measuring 1.4 x 1.5 x 1.7 cm, previously measured 1.3 x 0.9 x 1.2 cm. Adjacent calcification measuring 5 mm, previously measuring 3 mm. Probable incidental hepatic cyst right lobe measuring 2.2 x 1.2 x 1.8 cm with an adjacent calcification. Impression: 1. Kidneys normal size and position with normal cortical width and echotexture. 2. Midpole cyst left kidney with an adjacent calcification has minimally increased in size. 3. Probable incidental hepatic cysts right lobe of the liver with an adjacent calcification can be correlated with prior CT. Assessment & Plan Assessment & Plan (1) Nephrolithiasis: Code(s): N20.0 - Calculus of kidney Category: Medical (2) Kidney cysts: Code(s): N28.1 - Cyst of kidney, acquired Category: Medical Plan Recent renal imaging results reviewed with the patient today; as noted above. Recent PSA results reviewed with the patient today; as noted above. He currently denies any bothersome urinary issues or concerns. He reports be happy with current voiding parameters. Will continue with surveillance monitoring. We discussed the importance of adequate hydration relation to nephrolithiasis as well as overall health and well-being. Continue adding 1 oz of lemon juice to water daily. All questions were answered. Will obtain renal ultrasound in 1 year. Will obtain PSA in 1 year. Follow-up in 1 year with imaging and labs; or sooner with any issues, concerns, and or questions. Orders: Orders US renal BI 1 Year N20.0 - Calculus of kidney Prostate Specific Antigen 1 Year N40.0 - Benign prostatic hyperplasia without lower urinary tract symptoms Patient Instructions: The patient had an opportunity to ask questions regarding the treatment plan. All questions were answered. Physical exam, labs, and imaging were discussed and reviewed in detail. As well as risks, benefits, and discussion of treatment choices. No major barriers to understanding were identified. The patient expressed understanding and agreement with the above treatment plan. The patient was made aware they should contact our office by phone for worsening of their current condition, the appearance of new symptoms, or with any questions or concerns. Compliance is encouraged with any medications and follow up testing that is ordered. It is a privilege to be allowed the opportunity to participate in? your urological care.? Again, if you have any questions or concerns If you have any questions or concerns please do not hesitate to contact me. The office is [phone]. This note is constructed using voice recognition software. 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 Yours sincerely, ROWENA Sanders Coding Level of Care Code Tele Est Pt Level 3 (48004) Diagnoses Nephrolithiasis N20.0 Kidney cysts N28.1
--- OUTSIDE RECORDS SUMMARY | 2025-06-10 09:22 | XMS_ITS | Encounter Summary ---
Author Organization [employer] Address [address] [facility] [address] [place] [address] Care Team Providers Care Tail Board Worker Name Role Phone Koki Vu MD Primary Care Provider [phone] Reason for Visit * Reason Comments Med Refill Encounter Details Date Type Department Care Team ([facility] st Contact Info) Description 10/25/2023 Refill [facility] [address] [place] [address] Koki Vu MD [address] [place] [address] Social History Tobacco Use Types Packs/Day Years [...] documented as of this encounter Care Teams Tail Board Worker Relationship Specialty Start Date End Date Koki Vu MD [address] [place] [id number] PCP - General Family Medicine 10/23/20 [employer] 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
--- OUTSIDE RECORDS SUMMARY | 2025-06-10 09:22 | XMS_ITS | Clinical Summary ---
Author Organization [employer] Address [address] [place] [address] [address] [place] [address] Care Team Providers Care Sonoscope Operator Name Role Phone Koki Vu MD Primary Care Provider [phone] Allergies Active Allergy Reactions Criticality Noted Date [...] reports he needs new TSH border for assisted living coordinator referal placed in previous appointment. Assessment & [...] Already f w psychiatrist and therapist at [facility] ---advised to continue care [...] Encounters Date Type Department Care Team Description 06/05/2025 Orders Only GENERIC EXTERNAL DATA DEPARTMENT Provider, Generic External Data 05/28/2025 Orders Only [facility] External Provider, [facility] 05/28/2025 Refill [facility] [address] [place] [address] Koki Vu MD 04/14/2025 Telephone [facility] [address] [place] [address] Koki Vu MD Durable Medical Equipment 04/09/2025 Telephone [facility] [address] [place] [address] Koki Vu MD 04/04/2025 8:45 AM EDT Office Visit [facility] [address] [place] [address] Koki Vu MD Annual physical exam (Primary Dx); Prediabetes; 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; COVID-19; DB (acute kidney injury) ([facility]); Schatzki's ring; Cricopharyngeal achalasia; Esophageal hiatal hernia; Cervical osteophyte; Spinal stenosis at L4-L5 level; Trochanteric bursitis of left hip; Patellofemoral arthritis of right knee 04/04/2025 Orders Only GENERIC EXTERNAL DATA DEPARTMENT Provider, Generic External Data 04/04/2025 Travel 03/25/2025 Orders Only GENERIC EXTERNAL DATA DEPARTMENT Provider, Generic External Data 03/24/2025 Orders Only [facility] External Provider, [facility] 03/24/2025 Telephone [facility] [address] [place] [address] Koki Vu MD Med Refill 03/20/2025 Refill [facility] [address] [place] [address] Dimitri Rosa MD from Last 3 Months Immunizations Immunization Administration [...] Procedure Name Priority Date/Time Associated Diagnosis Comments PSA, TOTAL Routine 06/05/2025 9:07 AM EDT BASIC METABOLIC PANEL Routine 06/05/2025 9:07 AM EDT DB (acute kidney injury) (CMS/HCC) US RENAL COMPLETE Routine 05/29/2025 2:5 5 [...] Recently Relevant to Health Maintenance Results * PSA,Total (06/05/2025 9:07 AM EDT) Prostate Specific Antigen 0.68 <0.05 - 4.0 ng/mL [facility] Comment:PSA methodology: Abb mik Alijacielty i ChemiluminescentMicroparticle Immunoassay (CMIA) 06/05/2025 9:07 AM EDT 06/05/2025 9:07 AM EDT us Generic External Data Provider LAB BLOOD ORDERAB LES Final Result [facility] [address] [place] [phone] * (ABNORMAL) Basic Metabolic Panel (06/05/2025 9:07 AM EDT) Only the most recent of2 resultswithin the time period is included. Sodium 142 135 - 145 mmol/L [facility] Potassium 4.4 3.3 - 5.1 mmol/L [facility] Chloride 109(H) 96 - 108 mmol/L [facility] Carbon Dioxide 28 22 - 29 mmol/L [facility] Anion Gap 9(L) 12 - 20 [facility] Urea Nitrogen (BUN) 15 9 - 16 mg/dL [facility] Creatinine, Serum 1.24 0.5 - 1.4 mg/dL [facility] Estimated Glomerular Filt Rate 59 [facility] Comment:Chronic Kidney Disea se: Estimated GFR < 60 mL/min/1.70s0Tygmfm Kidney Disease: Estimated GFR < 15 mL/min/1.73m2 Glucose 113 60 - 115 mg/dL [facility] Calcium 9.3 8.4 - 10.2 mg/dL [facility] Blood Venous blood specimen / Unknown 06/05/2025 9:07 AM EDT 06/05/2025 9:07 AM EDT us Koki Vu MD LAB BLOOD ORDERABLES Final Re sult [facility] [address] [place] [phone] * US Renal Complete (05/29/2025 2:55 PM EDT) Anatomical Region Laterality Modality Kidney Ultrasound 05/29/2025 2:55 PM EDT Narrative 05/29/2025 2:56 PM EDT [address] [address] Ultrasound Report Signed Patient: Kvng Ramon MR#: [id number] : 1965 Acct:[id number] Age/Sex: 60 / M ADM Date: 05/28/25 Loc: HO.US Attending Dr: Juli GUAMAN Ordering Physician: Juli Han Date of Service: 05/28/25 Procedure(s): US renal BI Accession Number(s): [id number] cc: Juli Han; Koki Vu MD CLINICAL [...] Kamara MD in OV> 05/29/25 1456 DD/ 145 TD/TT: 05/29/251454 Business Process Manager: Procedure Note Donotuseinterpreter, Image - 05/29/2025 [place] [address] Ultrasound Report Signed Patient: Kvng Ramon EMR#: [id number] : 1965Acct:[id number] Age/Sex: 60 / MADM Date: 05/28/25 Loc: HO.US Attending Dr: Juli GUAMAN Ordering Physician: Juli Han Date of Service: 05/28/25 Procedure(s): US renal BI Accession Number(s): [id number] cc: Juli Han; Koki Vu MD CLINICAL [...] by Clint Kamara MD in OV> 05/29/25 145 DD/ 54 TD/TT: 05/29/251454 Business Process Manager: [facility] External Provider IMG US PROCEDURES Final Result * (ABNORMAL) POCT HGB A1C (04/04/2025 10:05 AM EDT) Pathologist [facility] Hemoglobin A1C 6.1(A) 4.0 - 5.7 % QC Media Lot # [id number] Comment:random Lot# Expiration Date 380 Blood 04/04/2025 10:0 5 AM EDT Result [facility] Koki Vu MD POINT OF CARE TEST ENTER/EDIT ORDERABLES Final Result * POCT Glucose (04/04/2025 10:05 AM EDT) Pathologist [facility] Glucose Blood, POC 98 60 - 200 mg/dL QC Media Lot # [id number] Lot# Expiration Date ,418 Comment:random Blood Capillary blood specimen / Unknown 04/04/2025 10:05 AM EDT Result [facility] Koki Vu MD POINT OF CARE TEST ENTER/EDIT ORDERABLES Final Result * (ABNORMAL) CBC auto differential (04/04/2025 9:53 AM EDT) Only the most recent of2 resultswithin the time period is included. [facility] White Blood Count 6.1 4.8 - 10.8 X10*3/uL [facility] Red Blood Count 4.62 4.60 - 5.80 X10*6/uL [facility] Hemoglobin 14.2 14.0 - 18.0 g/dl [facility] Hematocrit 42.6 42.0 - 52.0 % [facility] Mean Corpuscular Volume 92.2 80.0 - 98.0 fL [facility] Mean Corpuscular Hemoglobin 30.7 27.0 - 33.0 pg [facility] Mean Corpuscular HGB Conc 33.3 31.0 - 36.0 g/dl [facility] Red Cell Distribution Width 14.4 11.0 - 16.0 % [facility] Platelet Count 428(H) 160 - 400 X10*3/uL [facility] Mean Platelet Volume 9.3(L) 9.4 - 12.4 fL [facility] Neutrophils Percent Auto 35.0(L) 45 - 73 % [facility] Imm Gran Pct Auto 0.7(H) 0.0 - 0.4 % [facility] Lymphocytes Percent Auto 52.3(H) 20 - 40 % [facility] Monocytes Percent Auto 8.5 2 - 11 % [facility] Eosinophils Percent Auto 3.0 0 - 4 % [facility] Basophils Percent Auto 0.5 0 - 2 % [facility] NRBC Pct Auto 0.0 0.0 - 0.2 /100WBC [facility] Neutrophils Absolute Auto 2.1 2.0 - 8.3 x10*3/uL [facility] Imm Gran Abs Auto 0.04(H) 0.00 - 0.03 X10*3/uL [facility] Lymphocytes Absolute Auto 3.2 1.2 - 4.9 X10*3/uL [facility] Monocytes Absolute Auto 0.5 0.1 - 1.2 X10*3/uL [facility] Eosinophils Absolute Auto 0.2 0.0 - 0.4 X10*3/uL [facility] Basophils Absolute Auto 0.0 0.0 - 0.2 X10*3/uL [facility] NRBC Abs Auto 0.000 0.0 - 0.012 X10*3/uL [facility] 04/04/2025 9:53 AM EDT 04/04/2025 2:10 PM EDT us Generic External Data Provider LAB BLOOD ORDERAB LES Final Result Performing Organization Address [facility] Co de Phone Number [facility] [address] [place] [phone] * C-reactive Protein (04/04/2025 9:53 AM EDT) C Reactive Protein 0.25 < or = 0.50 mg/dL [facility] 04/04/2025 9:53 AM EDT 04/04/2025 2:05 PM EDT Generic External Data Provider LAB BLOOD ORDERAB LES Final Result Performing Organization Address [facility] Phone Number [facility] [address] [place] [phone] * (ABNORMAL) Comprehensive Metabolic Panel (04/04/2025 9:53 AM EDT) Pathologist [facility] Sodium 140 135 - 145 mmol/L [facility] Potassium 4.0 3.3 - 5.1 mmol/L [facility] Chloride 107 96 - 108 mmol/L [facility] Carbon Dioxide 25 22 - 29 mmol/L [facility] Anion Gap 12 12 - 20 [facility] Urea Nitrogen (BUN) 14 9 - 16 mg/dL [facility] Creatinine, Serum 1.17 0.5 - 1.4 mg/dL [facility] Estimated Glomerular Filt Rate >60 [facility] Comment:Chronic Kidney Disea se: Estimated GFR < 60 mL/min/1.41d7Ahuadm Kidney Disease: Estimated GFR < 15 mL/min/1.73m2 Glucose 88 60 - 115 mg/dL [facility] Calcium 9.0 8.4 - 10.2 mg/dL [facility] Bilirubin, Total 0.5 0.0 - 1.0 mg/dL [facility] Aspartate Amino Transferase 33 5 - 37 U/L [facility] Alanine Aminotransferase 72(H) 0 - 40 U/L [facility] Total Protein 7.0 6.5 - 8.0 g/dL [facility] Albumin Level 4.3 3.5 - 5.0 g/dL [facility] Alkaline Phosphatase 77 39 - 117 U/L [facility] 04/04/2025 9:53 AM EDT 04/04/2025 2:05 PM EDT Generic External Data Provider LAB BLOOD ORDERAB LES Final Result Performing Organization Address [facility] de Phone Number [facility] [address] [place] [phone] * Sed Rate by Modified Janae (04/04/2025 8:53 AM EDT) Erythrocyte Sedimentation Rate 5 0 - 15 MM/HR [facility] Comment:Patients with polycy themia and many hemoglobin abnormalitiesmay have depressed sed rates whereas patients with anemiamay have elevated sed rates. 04/04/2025 8:53 AM EDT 04/04/2025 2:05 PM EDT Generic External Data Provider LAB BLOOD ORDERAB LES Final Result Performing Organization Address [facility] Co de Phone Number [facility] [address] [place] [phone] * CT Abdomen Pelvis w/ Contrast (03/25/2025 1:01 PM EDT) Anatomical Region Laterality Modality Body, Pelvis, Abdomen Computed T omography 03/25/2025 1:01 PM EDT Narrative 03/25/2025 2:36 PM EDT [address] [address] [address] Scan Report Signed Patient: Kvng Ramon MR#: [id number] : 1965 Acct:[id number] Age/Sex: 59 / M ADM Date: 03/25/25 Loc: HO.ED Attending Dr: Ordering Physician: Goldy Morton MD Date of Service: 03/25/25 Procedure(s): CT abdomen pelvis w IV con Accession Number(s): [id number] cc: Goldy Morton MD; Koki Vu MD Report Number: [id number]: Total DLP = 601.00 mGy-cm EXAMINATION: CT [...] Jakob Sibley MD 03/25/2025 02:33 PM EDT RP Dictated By: Jakob Lee MD Signed By: <Electronically signed by Jakob Mcfadden MD in OV> 03/25/25 1433 DD/ 1301 TD/TT: 03/25/25 1419 Business Process Manager: Procedure Note Donotuseinterpreter, Image - 03/25/[address] [place] [address] [address] Scan Report Signed Patient: Kvng Ramon EMR#: [id number] : 1965Acct:[id number] Age/Sex: 59 / MADM Date: 03/25/25 Loc: HO.ED Attending Dr: Ordering Physician: Goldy Morton MD Date of Service: 03/25/25 Procedure(s): CT abdomen pelvis w IV con Accession Number(s): [id number] cc: Goldy Morton MD; Koki Vu MD Report Number: [id number]: Total DLP = 601.00 mGy-cm EXAMINATION: CT [...] 03/25/25 1433 DD/ 1301 TD/TT: 03/25/25 1419 Business Process Manager: [facility] External Provider IMG CT PROCEDURES Final Result * (ABNORMAL) SARS-CoV-2 RNA, Influenza A/B, and RSV RNA, Ql NAAT (03/25/2025 12:06 PM EDT) Influenza A PCR NEGATIVE Negative [facility] Influenza B PCR NEGATIVE Negative [facility] Resp Syncy Virus RNA Qual PCR NEGATIVE Negative [facility] SARS COV2 PCR POSITIVE(A) [...] use by authorized laboratories.Testing performed on the [employer] GeneXpert utilizingreal-time RT-PCR.All SARS CoV2 and positive influenza A/B results arereported to [facility]. 03/25/2025 12:0 6 PM EDT 03/25/2025 12:14 PM EDT Generic External Data Provider LAB MICROBIOLOGY - GENERAL ORDERABLES Final Result [facility] [address] [place] [phone] * Lipase (03/25/2025 12:05 PM EDT) Lipase 21 8 - 78 U/L [facility] 03/25/2025 12:0 5 PM EDT 03/25/2025 12:14 PM EDT Generic External Data Provider LAB BLOOD ORDERAB LES Final Result Performing Organization Address City/[facility] Co de Phone Number [facility] [address] [place] [phone] * Hepatic Function Panel (03/25/2025 12:05 PM EDT) Bilirubin, Total 0.5 0.0 - 1.0 mg/dL [facility] Bilirubin, Direct 0.2 0.0 - 0.5 mg/dL [facility] Aspartate Amino Transferase 37 5 - 37 U/L [facility] Comment:Slight Hemolysis.Int erpret result with caution. Alanine Aminotransferase 29 0 - 40 U/L [facility] Total Protein 7.1 6.5 - 8.0 g/dL [facility] Albumin Level 4.2 3.5 - 5.0 g/dL [facility] Alkaline Phosphatase 71 39 - 117 U/L [facility] 03/25/2025 12:0 5 PM EDT 03/25/2025 12:14 PM EDT us Generic External Data Provider LAB BLOOD ORDERAB LES Final Result Performing Organization Address [facility] Co de Phone Number [facility] [address] [place] [phone] * US Thyroid (03/24/2025 3:08 PM EDT) Anatomical Region Laterality Modality Head, Neck Ultrasound 03/24/2025 3:08 PM EDT Narrative 03/24/2025 3:56 PM EDT [address] [address] Ultrasound Report Signed Patient: Kvng Ramon E MR#: [id number] : 1965 Acct:[id number] Age/Sex: 59 / M ADM Date: 03/24/25 Loc: HO.US Attending Dr: Luz Good MD Ordering Physician: Luz Good MD Date of Service: 03/24/25 Procedure(s): US thyroid Accession Number(s): [id number] cc: Luz Good MD; Koki Vu MD [...] 03/24/25 1553 DD/ 1508 TD/TT: 03/24/25 1521 Business Process Manager: Procedure Note Donotuseinterpreter, Image - 03/24/[address] [address] Ultrasound Report Signed Patient: Kvng Ramon EMR#: [id number] : 1965Acct:[id number] Age/Sex: 59 / MADM Date: 03/24/25 Loc: HO.US Attending Dr: Luz Good MD Ordering Physician: Luz Good MD Date of Service: 03/24/25 Procedure(s): US thyroid Accession Number(s): [id number] cc: Luz Good MD; Koki Vu MD [...] 03/24/25 1553 DD/ 1508 TD/TT: 03/24/25 1521 Business Process Manager: us [facility] External Provider IMG US PROCEDURES Final Result * (ABNORMAL) Lipid Panel, Standard (01/14/2025 9:22 AM EDT) Triglycerides 86 <150 mg/dL [facility] Comment:Desirable Triglyceri de: less than 150 mg/dLBorderline High Triglyceride 150-199 mg/dLHigh Triglyceride: 200-499 mg/dLVery High Triglyceride: greater than or equal to 5OO mg/dL Cholesterol 193 <200 mg/dL [facility] Comment:Desirable Cholestero l: less than 200 mg/dLBorderline High Cholesterol: 200-239 mg/dLHigh Cholesterol: greater than 239 mg/dL LDL Cholesterol Calculated 134(H) <100 mg/dL [facility] Comment:Desirable LDL: less than [...] ORDERABLES Final Resul t Performing Organization Address [facility] de Phone Number [facility] [address] [place] [phone] * Hepatitis Panel, General (08/13/2024 11:49 AM EST) Hepatitis A IgM Nonreactive Nonreactive [facility] Comment:IgM antibodies to TORREZ V not detected; does not exclude earlyacute or recovered HAV infection. ~Hepatitis B Surface Antibody NONREACTIVE Nonreactive [facility] Comment:Nonreactive: < 8.00 mIU/mL Hepatitis B Core Antibody Nonreactive Nonreactive [facility] Hepatitis C Antibody Nonreactive Nonreactive [facility] Comment:Antibodies to HCV no t detected; does not exclude early acuteHCV infection. Hepatitis B Surface Ag Negative Negative [facility] 08/13/2024 11:4 9 AM EST 08/13/2024 11:49 AM EST us Generic External Data Provider LAB BLOOD ORDERAB LES Final Result Performing Organization Address [facility] de Phone Number [facility] [address] [place] [phone] * Cologuard?? colon cancer screening (08/10/2023 3:59 PM EDT) Cologuard Result Negative Negative 08/17/20 23 9:57 AM [facility] [employer] (CLIA #:[id number]) Comment: NEGATIVE TEST RESULT. A negative Cologuard [...] (Harris Albarran al, N Engl J Med 2014;370(14):0178-5038) The normal value (reference range) for this assay is negative. COLOGUARD RE-SCREENING RECOMMENDATION: Periodic colorectal cancer screening is an important part of preventive healthcare for asymptomatic individuals at average risk for colorectal cancer. Following a negative Cologuard result, the [place] Cancer Society and U.S. Multi-Society Task Force screening guidelines recommend a Cologuard re-screening interval of 3 years. References: [place] [employer] Guideline for Colorectal Cancer Screening: https://www.cancer.org/cancer/fwkht-jituvx-vysfdj/kjeidujpj-fbhiuczxs-qbxsdgu/ac s-rec ommendations.html.; Delroy DK, Rere CR, Guy RochaK, Colorectal Cancer Screening: Recommendations for Physicians and Patients from the U.S. Multi-Society Task Force on Colorectal Cancer Screening , Am J Gastroenterology 2017; 112:9298-9711. TEST DESCRIPTION: Composite algorithmic analysis of stool [...] (Harris Albarran al, N Engl J Med 2014;370(14):9723-4915.) Cologuard may produce a false negative or false positive result (no colorectal cancer or precancerous polyp present at colonoscopy follow up). A negative Cologuard test result does not guarantee the absence of CRC or advanced adenoma (pre-cancer). The current Cologuard screening interval is every 3 years. ([place] Cancer Society and U.S. Multi-Society Task Force). Cologuard performance data in a 10,000 patient pivotal study using colonoscopy as the reference method can be accessed at the following location: www.Tangled/results. Additional description of the Cologuard test process, warnings and precautions can be found at www.Eleme Medicalrd.ev-social. Stool specimen (specimen) 08/10/2023 3:59 PM EDT 08/11/2023 6:19 PM EDT Koki Vu MD LAB MOLECULAR DIAGNOSTICS ORD ERABLES Final Result [employer] (CLIA #:[id number]) [place] [address], * Colonoscopy (04/17/2018 6:07 AM EDT) Nasima Provider HEALTH MAINTENANCE Final Result from Last 3 Months or Most Recently Relevant to Health Maintenance Insurance [facility] C3 Care Teams Sonoscope Operator Relationship Specialty Start Date End Date Koki Vu MD [address] [place] [phone] PCP - General Family Medicine 10/23/20 Addie Insurance Office ManagerSchool Admissions Representative 06/17/24
--- OUTSIDE RECORDS SUMMARY | 2025-06-10 09:22 | XMS_ITS | Encounter Summary ---
Author Organization [employer] Address [address] [facility] 7t [place] [address] Care Team Providers Care Clipper Machine Operator Name Role Phone Koki Vu MD Primary Care Provider [phone] Encounter Details Date Type Department Care Team (Late st Contact Info) Description 08/23/2023 Abstract [facility] [address] [place] [address] Koki Vu MD [address] [place], [place] [phone] Social History Tobacco Use Types Packs/Day Years [...] documented as of this encounter Care Teams Clipper Machine Operator Relationship Specialty Start Date End Date Koki Vu MD [address] [place] [address] PCP - General Family Medicine 10/23/20 Addie Cryogenics EngineerPharmacy Clinical Specialist 06/17/24 documented as of this encounter
--- OUTSIDE RECORDS SUMMARY | 2025-06-10 09:22 | XMS_ITS | Clinical Summary ---
Author Organization [facility] Address [address] [place] [address] Care Team Providers Care Medical Office Asst Name Role Phone Jessica Rogers MD Primary [...] age to complete this topic Care Teams Medical Office Asst Relationship Specialty Start Date End Date Jessica Rogers MD [address] [place] [phone] PCP - General General Surgery 09/22/21
--- OUTSIDE RECORDS SUMMARY | 2025-06-10 09:22 | XMS_ITS | Clinical Summary ---
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 Psoriatic [...] f w psychiatrist and therapist at [facility] ---advised to continue care and may need eval if meds can be adjusted Immunizations Immunization Administration Dates Next Due Hepatitis A Vaccine, Adult Dosage 08/14/2019 Hepatitis B adult (ENGERIX-B ADULT) vaccine 1 mL IM 08/14/2019 Influenza, Injectable, Quadr ivalent, Contains Preservative 09/06/2018,12/11/2017 Influenza, Injectable, Quadr ivalent, Preservative Free 07/31/2023,07/02/2021,08/26/2020,2018 Pneumococcal Conjugate Vacci ne, 13 Valent 06/07/2019 Pneumococcal conjugate PCV20,polysaccharide [id number] conjugate, adjuvant, PF (Prevnar 20) 02/01/2024 RSV, [...] B Vaccines Completed 04/16/2024, 02/16/2024, 08/14/2019 Insurance [employer] Care Teams Partition Setter Relationship Specialty Start Date End Date Koki Vu [address] [place] [address] [place] [address] PCP - General 12/26/23
--- OUTSIDE RECORDS SUMMARY | 2025-06-10 09:22 | XMS_ITS | Encounter Summary ---
Author Organization [employer] Address [address] [place] [address] 7t [place] [address] Care Team Providers Care Motorcycle Delivery Driver Name Role Phone Koki Vu MD Primary Care Provider [phone] Reason for Visit * Reason Onset Date Comments Durable Medical Equipment 02/07/2024 Encounter Details Date Type Department Care Team ([facility] st Contact Info) Description 02/07/[address] [facility] [address] [place] [address] Koki Vu MD [address] [place] [address] Durable Medical Equipment Social History Tobacco Use [...] documented as of this encounter Care Teams Motorcycle Delivery Driver Relationship Specialty Start Date End Date Koki Vu MD [address] [place] [address] PCP - General Family Medicine 10/23/20 Addie Medical Billing SupervisorShrimp Boat Captain 06/17/24 documented as of this encounter
--- OUTSIDE RECORDS SUMMARY | 2025-06-10 09:22 | XMS_ITS | Encounter Summary ---
Author Organization [employer] Address [address] [facility] 7t [place] [address] Care Team Providers Care Line Puller Name Role Phone Koki Vu MD Primary Care Provider [phone] Reason for Visit * Reason Comments Med Refill Encounter Details Date Type Department Care Team ([facility] st Contact Info) Description 03/28/2024 Refill [facility] MED & PEDS [address] [place] [address] Koki Vu MD [address] [place] [address] Social History Tobacco Use Types Packs/Day Years [...] documented as of this encounter Care Teams Line Puller Relationship Specialty Start Date End Date Koki Vu MD [address] [place] [phone] PCP - General Family Medicine 10/23/20 Addie Relief WorkerManager Country 06/17/24 documented as of this encounter
--- OUTSIDE RECORDS SUMMARY | 2025-06-10 09:22 | XMS_ITS | Encounter Summary ---
Author Organization [employer] Address [address] [address] Care Team Providers Care Hospital Cleaning Specialist Name Role Phone Kkoi Vu MD Primary Care Provider [phone] Reason for Referral * Consultation (Routine) - Closed Specialty Diagnoses / Procedures Referred By Contac t Referred To Contact Rheumatology Diagnoses Erosion of bone Tirso Mayfield MD [address] [place] [address] Phone: tel: fax: [facility] [address] [place] [address] Phone: tel: fax: Referral ID Status Reason Start Date Expiration Date V isits Requested Visits Authorized [id number] Closed Specialty Services Required 08/02/2024 08/02/2025 1 1 Encounter Details Date Type Department Care Team (Late st Contact Info) Description 08/02/2024 Orders Only [facility] CHC MED & PEDS [address] [place] [address] Tirso Mayfield MD [address] [place] [address] Erosion of bone (Primary Dx) Social History [...] AM EDT) Rheumatoid Factor <13.0 <15.0 IU/mL [facility] Blood Venous blood specimen / Unknown 08/08/2024 10:40 AM EDT 08/08/2024 1:17 PM EDT Tirso Jara MD LAB BLOOD ORDERABL ES Final Result Performing Organization Address [facility] de Phone Number [facility] [address] [place] [phone] * Cyclic Citrullinated Peptide (CCP) Antibody (IgG) (08/08/2024 10:40 AM EDT) Cyclic Citrullinated Peptide <16 UNITS [facility] Comment:Reference RangeNegat shalom: <20Weak Positive: 20-39Moderate Positive: 40-59Strong Positive: >59THIS TEST WAS PERFORMED AT:[facility] [place] [id number] RECINOS MD Blood Venous blood specimen / Unknown 08/08/2024 10:40 AM EDT 08/08/2024 1:17 PM EDT us Tirso Jara MD LAB BLOOD ORDERABL ES Final Result Performing Organization Address [facility] de Phone Number [facility] [address] [place] [phone] documented in this encounter Visit Diagnoses Diagnosis Erosion of bone- Primary documented in this encounter Additional Health Concerns Assessment Noted Time PHQ-9 Depression Total Score: 17 07/04/ 023 11:11 AM EDT documented as of this encounter Care Teams Hospital Cleaning Specialist Relationship Specialty Start Date End Date Koki Vu MD [address] [place] [address] PCP - General Family Medicine 10/23/20 Addie Lens Blank GaugerDirector Of Clinical Trials 06/17/24 documented as of this encounter
--- OUTSIDE RECORDS SUMMARY | 2025-06-10 09:22 | XMS_ITS | Encounter Summary ---
Author Organization [employer] Address 75 [facility] 7t [place] [address] Care Team Providers Care Dispensary Clerk Name Role Phone Koki Vu MD Primary Care Provider [phone] Encounter Details Date Type Department Care Team (Late st Contact Info) Description 06/05/2025 Orders Only GENERIC EXTERNAL DATA [...] PSA, TOTAL Routine 06/05/2025 9:07 AM EDT documented in this encounter Results * PSA,Total (06/05/2025 9:07 AM EDT) Prostate Specific Antigen 0.68 <0.05 - 4.0 ng/mL [facility] Comment:PSA methodology: Hugo Ordoñez i ChemiluminescentMicroparticle Immunoassay (CMIA) 06/05/2025 9:07 AM EDT 06/05/2025 9:07 AM EDT us Generic External Data Provider LAB BLOOD ORDERAB LES Final Result [facility] [address] [place] [phone] [phone] documented in this encounter Visit Diagnoses Not on filedocumented in this encounter Additional Health Concerns Assessment Noted Time PHQ-9 Depression Total Score: 16 04/04/2 025 10:18 AM EDT documented as of this encounter Care Teams Dispensary Clerk Relationship Specialty Start Date End Date Koki Vu MD [address] [place] [address] PCP - General Family Medicine 10/23/20 Addie Career ManagerGuest Room Attendant 06/17/24 documented as of this encounter
--- OUTSIDE RECORDS SUMMARY | 2025-06-10 09:22 | XMS_ITS | Clinical Summary ---
Author Organization [facility] Address [address] [place] [address] Care Team Providers Care Nurse Intern Name Role Phone Unavailable Primary Care Provider [...] to complete this topic , [address] [place] [address]
--- OUTSIDE RECORDS SUMMARY | 2025-06-10 09:22 | XMS_ITS | Encounter Summary ---
Author Organization [employer] Address 75 [facility] 7t [place] [address] Care Team Providers Care Regional Hr Manager Name Role Phone Koki Vu MD Primary Care Provider [phone] Reason for Visit * Reason Comments Med Refill Encounter Details Date Type Department Care Team ([facility] st Contact Info) Description 10/25/2023 Refill [facility] CHC MED & PEDS [address] [place] [address] Koki Vu MD [address] [place] [address] Social History Tobacco Use Types Packs/Day Years [...] documented as of this encounter Care Teams Regional Hr Manager Relationship Specialty Start Date End Date Koki Vu MD [address] [place] [address] PCP - General Family Medicine 10/23/20 Addie Scholastic Aptitude Test GraderPlant Control Aide 06/17/24 documented as of this encounter
--- OUTSIDE RECORDS SUMMARY | 2025-06-10 09:22 | XMS_ITS | Encounter Summary ---
Author Organization [employer] Address 75 [facility] 7t [place] [address] Care Team Providers Care Food Service Associate Name Role Phone Koki Vu MD Primary Care Provider [phone] Encounter Details Date Type Department Care Team (Late st Contact Info) Description 02/05/2024 Orders Only [facility] [address] [place], [place] [phone] Provider, MD Nasima Social History Tobacco Use [...] documented as of this encounter Care Teams Food Service Associate Relationship Specialty Start Date End Date Koki Vu MD [address] [place] [phone] PCP - General Family Medicine 10/23/20 Addie Gathering WorkerAssistant Surveyor 06/17/24 documented as of this encounter
--- OUTSIDE RECORDS SUMMARY | 2025-06-10 09:22 | XMS_ITS | Encounter Summary ---
Author Organization [employer] Address 75 [facility] 7t [place] [address] Care Team Providers Care Form Builder Name Role Phone Koki Vu MD Primary Care Provider [phone] Encounter Details Date Type Department Care Team ([facility] st Contact Info) Description 09/27/2024 Telephone [facility] CHC MED & PEDS [address] [place], [place] [phone] Koki Vu MD [address] [place], [place] [phone] Social History Tobacco Use Types Packs/Day Years [...] t he electric, gas, oil or water [employer] threatened to shut off services in your [...] EST TC from [place] DO with [facility] pulmonology requesting a call back from pcp to discuss further medical options. Best contact # [phone]. documented in this encounter Plan of Treatment Not on file documented as of this encounter Visit Diagnoses Not on filedocumented in this encounter Additional Health Concerns Assessment Noted Time PHQ-9 Depression Total Score: 17 023 11:11 AM EDT documented as of this encounter Care Teams Form Builder Relationship Specialty Start Date End Date Koki Vu MD [address] [place] [address] PCP - General Family Medicine 10/23/20 Addie Certified Performance TechnologistBarge Master 06/17/24 documented as of this encounter
--- OUTSIDE RECORDS SUMMARY | 2025-06-10 09:22 | XMS_ITS | Encounter Summary ---
Author Organization [employer] Address [address] [place] [address] 7t [place] [address] Care Team Providers Care Fur Mixer Name Role Phone Koki Vu MD Primary Care Provider [phone] Reason for Visit * Reason Onset Date Comments Med Refill 03/24/2025 Encounter Details Date Type Department Care Team ([facility] Contact Info) Description 03/24/2025 Telephone [facility] CHC MED & PEDS [address] [place] [address] Koki Vu MD [address] [place] [address] Med Refill Social History Tobacco Use Types [...] 10:52 AM EDT Medication was sent to [facility] on 03/21/25. * Telephone Encounter - Barbara Pollard - 03/24/2025 10:50 AM EDT TC from pt requesting medication refill. Medications needing refill : pregabalin (Lyrica) 225 MG capsule To be sent to: [facility] - [place], [place] - [address] [place] [address] documented in this encounter Plan of Treatment Not on file documented as of this encounter Visit Diagnoses Not on filedocumented in this encounter Additional Health Concerns Assessment Noted Time PHQ-9 Depression Total Score: 17 023 11:11 AM EDT documented as of this encounter Care Teams Fur Mixer Relationship Specialty Start Date End Date Koki Vu MD [address] [facility] [place] [address] PCP - General Family Medicine 10/23/20 Addie Beverage ManagerCement And Concrete Plant Worker 06/17/24 documented as of this encounter
== END 2025-06-10 09:19 | disposition home or self-care (01) ==
LOC: HO.HUSH 08:39
PROVIDERS: PCP Family Medicine; Visit Provider Nurse Practitioner Family
DX: N20.0 Calculus of kidney (principal); N28.1 Cyst of kidney, acquired
CPT/HCPCS: 99213

== ENCOUNTER 2025-07-28 07:52 | Outpatient (AMB) | payer MEDICAID, SELFPAY ==
--- OUTSIDE RECORDS SUMMARY | 2025-07-28 07:55 | XMS_ITS | Clinical Summary ---
Author Organization [facility] Address [address] [place] [address] Care Team Providers Care Disease Intervention Specialist Name Role Phone Unavailable Primary Care Provider [...] to complete this topic , [address] [place] [address]
--- OUTSIDE RECORDS SUMMARY | 2025-07-28 07:55 | XMS_ITS | Encounter Summary ---
Author Organization [employer] Address [address] [address] Care Team Providers Care Shipper Receiver Name Role Phone Koki Vu MD Primary Care Provider Reason for Referral * Consultation (Routine) - Closed Specialty Diagnoses / Procedures Referred By Contac t Referred To Contact Rheumatology Diagnoses Erosion of bone Tirso Mayfield MD [address] [place] [address] Phone: tel: fax: [facility] [address] [place] [address] Phone: tel: fax: Referral ID Status Reason Start Date Expiration Date V isits Requested Visits Authorized [id number] Closed Specialty Services Required 08/02/2024 08/02/2025 1 1 Encounter Details Date Type Department Care Team (Late st Contact Info) Description 08/02/2024 Orders Only [facility] CHC MED & PEDS [address] [place] [address] Tirso Mayfield MD [address] [place] [address] Erosion of bone (Primary Dx) Social History [...] AM EDT) Rheumatoid Factor <13.0 <15.0 IU/mL [facility] Blood Venous blood specimen / Unknown 08/08/2024 10:40 AM EDT 08/08/2024 1:17 PM EDT Tirso Jara MD LAB BLOOD ORDERABL ES Final Result Performing Organization Address [facility] de Phone Number [facility] [address] [place] [phone] * Cyclic Citrullinated Peptide (CCP) Antibody (IgG) (08/08/2024 10:40 AM EDT) Cyclic Citrullinated Peptide <16 UNITS [facility] Comment:Reference RangeNegat shalom: <20Weak Positive: 20-39Moderate Positive: 40-59Strong Positive: >59THIS TEST WAS PERFORMED AT:[facility] [id number] RECINOS MD Blood Venous blood specimen / Unknown 08/08/2024 10:40 AM EDT 08/08/2024 1:17 PM EDT us Tirso Jara MD LAB BLOOD ORDERABL ES Final Result Performing Organization Address [facility] de Phone Number [facility] [address] [place] [phone] documented in this encounter Visit Diagnoses Diagnosis Erosion of bone- Primary documented in this encounter Additional Health Concerns Assessment Noted Time PHQ-9 Depression Total Score: 17 07/04/ 023 11:11 AM EDT documented as of this encounter Care Teams Shipper Receiver Relationship Specialty Start Date End Date Koki Vu MD [address] [place] [address] PCP - General Family Medicine 10/23/20 Addie Restaurant Crew PersonEditing Intern 06/17/24 documented as of this encounter
--- OUTSIDE RECORDS SUMMARY | 2025-07-28 07:55 | XMS_ITS | Encounter Summary ---
Author Organization [employer] Address 75 [facility] 7t [place] [address] Care Team Providers Care Fitness Plan Coordinator Name Role Phone Koki Vu MD Primary Care Provider [phone] Reason for Visit * Reason Comments Med Refill Encounter Details Date Type Department Care Team ([facility] st Contact Info) Description 03/28/2024 Refill [facility] CHC MED & PEDS [address] [place] [address] Koki Vu MD [address] [place] [address] Social History Tobacco Use Types Packs/Day Years [...] documented as of this encounter Care Teams Fitness Plan Coordinator Relationship Specialty Start Date End Date Koki Vu MD [address] [place] [address] PCP - General Family Medicine 10/23/20 Addie Head Start DirectorMirror Maker 06/17/24 documented as of this encounter
--- OUTSIDE RECORDS SUMMARY | 2025-07-28 07:55 | XMS_ITS | Encounter Summary ---
Author Organization [employer] Address 75 [facility] 7t [place] [address] Care Team Providers Care Senior Scientist Name Role Phone Koki Vu MD Primary Care Provider [phone] Encounter Details Date Type Department Care Team (Late st Contact Info) Description 08/23/2023 Abstract [facility] MEDICINE [address] [place] [address] Koki Vu MD [address] [place], [place] [phone] Social History Tobacco Use Types Packs/Day Years [...] as of this encounter Care Teams Senior Scientist Relationship Specialty Start Date End Date Koki Vu MD [address] [place] [address] PCP - General Family Medicine 10/23/20 Addie Fiberglass Dowel Drawing OperatorManagement Consultant 06/17/24 documented as of this encounter
--- OUTSIDE RECORDS SUMMARY | 2025-07-28 07:55 | XMS_ITS | Encounter Summary ---
Author Organization [employer] Address 75 [facility] 7t [place] [address] Care Team Providers Care Diesel Bus Mechanic Name Role Phone Koki Vu MD Primary Care Provider [phone] Encounter Details Date Type Department Care Team ([facility] st Contact Info) Description 09/27/2024 Telephone [facility] CHC MED & PEDS [address] [place], [place] [phone] Koki Vu MD [address] [place], [place] [phone] Social History Tobacco Use Types Packs/Day Years [...] t he electric, gas, oil or water [employer] threatened to shut off services in your [...] discuss further medical options. Best contact # [phone]. documented in this encounter Plan of Treatment Not on file documented as of this encounter Visit Diagnoses Not on filedocumented in this encounter Additional Health Concerns Assessment Noted Time PHQ-9 Depression Total Score: 17 023 11:11 AM EDT documented as of this encounter Care Teams Diesel Bus Mechanic Relationship Specialty Start Date End Date Koki Vu MD [address] [place] [address] PCP - General Family Medicine 10/23/20 Addie Minister Of ReligionTooling Mechanic 06/17/24 documented as of this encounter
--- OUTSIDE RECORDS SUMMARY | 2025-07-28 07:55 | XMS_ITS | Encounter Summary ---
Author Organization [employer] Address 75 [facility] 7t [place] [address] Care Team Providers Care Insurance Special Agent Name Role Phone Koki Vu MD Primary Care Provider [phone] Reason for Visit * Reason Comments Med Refill Encounter Details Date Type Department Care Team ([facility] st Contact Info) Description 10/25/2023 Refill [facility] CHC MED & PEDS [address] [place] [address] Koki Vu MD [address] [place] [address] Social History Tobacco Use Types Packs/Day Years [...] documented as of this encounter Care Teams Insurance Special Agent Relationship Specialty Start Date End Date Koki Vu MD [address] [place] [address] PCP - General Family Medicine 10/23/20 Addie Senior Supplier Quality EngineerCrepe Machine Operator 06/17/24 documented as of this encounter
--- OUTSIDE RECORDS SUMMARY | 2025-07-28 07:55 | XMS_ITS | Encounter Summary ---
Author Organization [employer] Address [address] [place] [address] 7t [place] [address] Care Team Providers Care Accountant Clerk Name Role Phone Koki Vu MD Primary Care Provider [phone] Reason for Visit * Reason Onset Date Comments Durable Medical Equipment 02/07/2024 Encounter Details Date Type Department Care Team ([facility] st Contact Info) Description 02/07/2024 Telephone [facility] CHC MED & PEDS [address] [place] [address] Koki Vu MD [address] [place] [address] Durable Medical Equipment Social History Tobacco Use [...] documented as of this encounter Care Teams Accountant Clerk Relationship Specialty Start Date End Date Koki Vu MD [address] [place] [address] PCP - General Family Medicine 10/23/20 Addie Dress Shoe InspectorBus Driver/Monitor 06/17/24 documented as of this encounter
--- OUTSIDE RECORDS SUMMARY | 2025-07-28 07:55 | XMS_ITS | Clinical Summary ---
Author Organization [employer] Address [address] [place] [address] 7[address] [place] [address] Care Team Providers Care Lead Esthetician Name Role Phone Koki Vu MD Primary Care Provider [phone] Allergies Active Allergy Reactions Criticality Noted Date [...] shoulder, thigh, or buttocks. 08/01/20 22 Active Enbrel SureClick 50 MG/ML injection 10/21/19 [...] mg by mouth in the morning. 10/19/19 23 Active tiZANidine (Zanaflex) 4 MG tablet TAKE 1 TABLET BY MOUTH EVERY 6 TO 8 HOURS NEEDED. DO NOT EXCEED 3 DOSES IN 24 HOURS. 08/08/20 22 Active naloxone (Narcan) 4 mg/0.1 mL nasal [...] 23 Active cholecalciferol (Vitamin D-3) 50 MCG (1999 UT) tabletIndications: Vitamin D deficiency, unspecified TAKE [...] MORNING 90 tablet 5 02/01/20 24 Active magnesium oxide (Mag-Ox) 400 (240 Mg) MG tablet Take 400 mg by mouth Once per day. 01/08/20 24 Active riboflavin (Vitamin B-2) 400 MG tablet Take 1 tablet by mouth Once per day. 01/08/20 24 Active triamcinolone (Kenalog) 0.1 % cream Mix with cerave cream and apply 1x/d 80 g 2 11/28/19 25 Active atorvastatin (Lipitor) 80 MG tabletIndications: Hyperlipidemia, unspecified hyperlipidemia type TAKE 1 TABLET BY MOUTH EVERY DAY AT BEDTIME 90 tablet 1 02/05/20 25 Active Ajovy 225 MG/1.5ML auto-injector INJECT 1.5 ML (225 MG) SUBCUTANEOUSLY ONCE EVERY 30 DAYS 12/19/19 25 Active esomeprazole (NexIUM) [address] capsule Take 1 capsule by mouth Once per day. 02/06/20 25 Active DULoxetine (Cymbalta) [address] capsule TAKE 1 CAPSULE BY MOUTH TWICE DAILY IN THE MORNING AND AT BEDTIME 03/17/20 25 Active dicyclomine (Bentyl) 10 MG capsule Take 1 capsule by mouth every 6 (six) hours during the day. 03/31/20 25 Active celecoxib (CeleBREX) 200 MG capsule Take 200 mg by mouth. 02/12/20 25 Active Qulipta 60 MG tablet Take 60 mg by mouth. 03/25/20 25 Active pregabalin (Lyrica) 225 MG capsule TAKE 1 CAPSULE BY MOUTH TWICE DAILY 60 capsule 1 05/28/20 25 Active Active Problems Problem Noted Date Diagnosed Date DB (acute kidney injury) 04/04/2025 Bilateral occipital neuralgia 04/04/2025 Colitis 04/04/2025 Discogenic cervical pain 04/04/2025 Interstitial lung disease (CMS/HCC) 04/04/2025 Lipoma of scalp 04/04/2025 Overview (04/04/2025): [...] needs assistance with food -referred today to Hypertension 06/08/2023 Assessment & Plan (07/31/2023 9:31 [...] reports he needs new TSH border for wheel grinder referal placed in previous appointment. Assessment & [...] per his request. 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) 12/11/2017 Assessment & Plan (07/04/2023 4:16 PM EDT): PHQ9: 17,denies SI Already f w psychiatrist and therapist at [facility] ---advised to continue care and [...] Provider, Generic External Data 05/28/2025 Orders Only [facility] External Provider, [employer] 05/28/2025 Refill [facility] [address] [place] [address] Koki Vu MD from Last 3 Months Immunizations Immunization [...] Done Comments CT Colonography 1965 FIT 1965 HIV Screening 1965 Sigmoidoscopy 1965 Disability Screening 1965 Hepatitis A Vaccines (2 of 2 - Risk 2-dose series) 02/12/2020 08/14/2019 FOBT 08/10/2024 08/10/2023 COVID-19 Vaccine ( season) 2025 04/27/2022, 09/23/2021, 01/18/2021, Additional history exists Influenza [...] TOTAL Routine 04/04/2025 10:05 AM EDT Prediabetes LIPID PANEL, STANDARD Routine [...] Specific Antigen 0.68 <0.05 - 4.0 ng/mL [facility] Comment:PSA methodology: Hugo Ordoñez i ChemiluminescentMicroparticle Immunoassay (CMIA) 06/05/2025 9:07 AM EDT 06/05/2025 9:07 AM EDT us Generic External Data Provider LAB BLOOD ORDERAB LES Final Result [facility] [address] [place] [phone] * (ABNORMAL) Basic Metabolic Panel (06/05/2025 9:07 AM EDT) Sodium 142 135 - 145 mmol/L [facility] Potassium 4.4 3.3 - 5.1 mmol/L [facility] Chloride 109(H) 96 - 108 mmol/L [facility] Carbon Dioxide 28 22 - 29 mmol/L [facility] Anion Gap 9(L) 12 - 20 [facility] Urea Nitrogen (BUN) 15 9 - 16 mg/dL [facility] Creatinine, Serum 1.24 0.5 - 1.4 mg/dL [facility] Estimated Glomerular Filt Rate 59 [facility] Comment:Chronic Kidney Disea se: Estimated GFR < 60 mL/min/1.66l6Eqqjxo Kidney Disease: Estimated GFR < 15 mL/min/1.73m2 Glucose 113 60 - 115 mg/dL [facility] Calcium 9.3 8.4 - 10.2 mg/dL [facility] Blood Venous blood specimen / Unknown 06/05/2025 9:07 AM EDT 06/05/2025 9:07 AM EDT us Koki Vu MD LAB BLOOD ORDERABLES Final Re sult [facility] [address] [place] [phone] * US Renal Complete (05/29/2025 2:55 PM EDT) Anatomical Region Laterality Modality Kidney Ultrasound 05/29/2025 2:55 PM EDT Narrative 05/29/2025 2:56 PM EDT [address] [address] Ultrasound Report Signed Patient: Kvng Ramon MR#: [id number] : 1965 Acct:[id number] Age/Sex: 60 / M ADM Date: 05/28/25 Loc: HO.US Attending Dr: Juli GUAMAN Ordering Physician: Juli Han Date of Service: 05/28/25 Procedure(s): US renal BI Accession Number(s): [id number] cc: Juli Han; Koki Vu MD CLINICAL [...] Kamara MD in OV> 05/29/25 1456 DD/ 1455 TD/TT: 05/29/25 1455 Underground Utility Locator: Procedure Note Donotuseinterpreter, Image - 05/29/[address] [address] Ultrasound Report Signed Patient: Kvng Ramon EMR#: [id number] : 1965Acct:[id number] Age/Sex: 60 / MADM Date: 05/28/25 Loc: HO.US Attending Dr: Juli IYER Ordering Physician: Juli Han Date of Service: 05/28/25 Procedure(s): US renal BI Accession Number(s): [id number] cc: Juli Han; Koki Vu MD CLINICAL [...] Kamara MD in OV> 05/29/25 1456 DD/ 1455 TD/TT: 05/29/25 1455 Underground Utility Locator: [facility] External Provider IMG US PROCEDURES Final Result * (ABNORMAL) POCT HGB A1C (04/04/2025 10:05 AM EDT) Hemoglobin A1C 6.1(A) 4.0 - 5.7 % QC Media Lot # [id number] Comment:random Lot# Expiration Date [id number] Blood 04/04/2025 10:0 5 AM EDT us Koki Vu MD POINT OF CARE TEST ENTER/EDIT ORDERABLES Final Result * (ABNORMAL) Lipid Panel, Standard (01/14/2025 9:22 AM EDT) Triglycerides 86 <150 mg/dL [facility] Comment:Desirable Triglyceri de: less than 150 mg/dLBorderline High Triglyceride 150-199 mg/dLHigh Triglyceride: 200-499 mg/dLVery High Triglyceride: greater than or equal to 5OO mg/dL Cholesterol 193 <200 mg/dL [facility] Comment:Desirable Cholestero l: less than 200 mg/dLBorderline High Cholesterol: 200-239 mg/dLHigh Cholesterol: greater than 239 mg/dL LDL Cholesterol Calculated 134(H) <100 mg/dL [facility] Comment:Desirable LDL: less than 100 mg/dLNear Optimal/Above Optimal LDL: 110- 129 mg/dLBorderline High LDL: 130-159 mg/dLHigh LDL: 160-189 mg/dLVery High LDL: greater than or equal to 190 mg/dL HDL Cholesterol 42 >40 mg/dL [facility] Comment:Desirable HDL: great er than 40 mg/dL Note: This HDL assay may give artificially low results in patients with liver disease. Blood Venous blood specimen / Unknown 01/14/2025 9:22 AM EDT 01/14/2025 2:06 PM EDT us Josee Collazo MD LAB BLOOD ORDERABLES Final Resul t [facility] [address] [place] [phone] * Hepatitis Panel, General (08/13/2024 11:49 AM EST) Hepatitis A IgM Nonreactive Nonreactive [facility] Comment:IgM antibodies to TORREZ V not detected; does not exclude earlyacute or recovered HAV infection. ~Hepatitis B Surface Antibody NONREACTIVE Nonreactive [facility] Comment:Nonreactive: < 8.00 mIU/mL Hepatitis B Core Antibody Nonreactive Nonreactive [facility] Hepatitis C Antibody Nonreactive Nonreactive [facility] Comment:Antibodies to HCV no t detected; does not exclude early acuteHCV infection. Hepatitis B Surface Ag Negative Negative [facility] 08/13/2024 11:4 9 AM EST 08/13/2024 11:49 AM EST us Generic External Data Provider LAB BLOOD ORDERAB LES Final Result [facility] [address] [place] [phone] * Cologuard?? colon cancer screening (08/10/2023 3:59 PM EDT) Cologuard Result Negative Negative 08/17/20 9:57 AM EST [employer] (CLIA #:[id number]) Comment: NEGATIVE TEST RESULT. A negative Cologuard [...] Sotelo. et al, N Engl J Med 2014;370(14):6847-3451) The normal value (reference range) for this assay is negative. COLOGUARD RE-SCREENING RECOMMENDATION: Periodic colorectal cancer screening is an important part of preventive healthcare for asymptomatic individuals at average risk for colorectal cancer. Following a negative Cologuard result, the [employer] [place] [employer] and U.S. Multi-Society Task Force screening guidelines recommend a Cologuard re-screening interval of 3 years. References: [employer] [place] [employer] Guideline for Colorectal Cancer Screening: https://www.cancer.org/cancer/xxvua-hessim-mxhopk/txxpffucx-niivrqmhs-uneqctg/ac s-rec ommendations.html.; Delroy DK, Rere OTERO, Guy RochaK, Colorectal Cancer Screening: Recommendations for Physicians and Patients from the U.S. Multi-Society Task Force on Colorectal Cancer Screening , Am J Gastroenterology 2017; 112:7373-7812. TEST DESCRIPTION: Composite algorithmic analysis of stool [...] (Harris Albarran al, N Engl J Med 2014;370(14):4719-8895.) Cologuard may produce a false negative or false positive result (no colorectal cancer or precancerous polyp present at colonoscopy follow up). A negative Cologuard test result does not guarantee the absence of CRC or advanced adenoma (pre-cancer). The current Cologuard screening interval is every 3 years. ([employer] [place] [employer] and U.S. Multi-Society Task Force). Cologuard performance data in a 10,000 patient pivotal study using colonoscopy as the reference method can be accessed at the following location: www.WiseStamp.enVista/results. Additional description of the Cologuard test process, warnings and precautions can be found at www.Modaboundrd.com. Stool specimen (specimen) 08/10/2023 3:59 PM EDT 08/11/2023 6:19 PM EDT Koki Vu MD LAB MOLECULAR DIAGNOSTICS ORD ERABLES Final Result [employer] (CLIA #:[id number]) [place] [address], [place] [phone] * Hm Colonoscopy (04/17/2018 6:07 AM EDT) Historical Provider HEALTH MAINTENANCE Final Result from Last 3 Months or Most Recently Relevant to Health Maintenance Insurance [place] [address] C3 Care Teams Lead Esthetician Relationship Specialty Start Date End Date Koki Vu MD [address] [place] [phone] PCP - General Family Medicine 10/23/20 Addie Acoustical Tile Carpenters SupervisorFresh Work Inspector 06/17/24
--- OUTSIDE RECORDS SUMMARY | 2025-07-28 07:55 | XMS_ITS | Encounter Summary ---
Author Organization [email or web address] Address [address] [facility] [address] [place] [address] Care Team Providers Care White Washer Name Role Phone Koki Vu MD Primary Care Provider [phone] Encounter Details Date Type Department Care Team (Late st Contact Info) Description 02/05/2024 Orders Only [facility] [address] [place], [place] [phone] Provider, MD Nasima Social History Tobacco Use [...] documented as of this encounter Care Teams White Washer Relationship Specialty Start Date End Date Koki Vu MD [address] [place] [phone] PCP - General Family Medicine 10/23/20 Addie Wheel AdjusterMachine Operator Hay Stacker 06/17/24 documented as of this encounter
--- OUTSIDE RECORDS SUMMARY | 2025-07-28 07:55 | XMS_ITS | Clinical Summary ---
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 Psoriatic [...] ne, 13 Valent 06/07/2019 Pneumococcal conjugate PCV20,polysaccharide [id number] conjugate, adjuvant, PF (Prevnar 20) 02/01/2024 RSV, [...] 1965 FOBT / Fit Test 05/15/2024 05/15/2023 Alcohol/Substance Use Screening 10/09/2024 Depression Screening and Follow-Up 10/09/2024 Social Drivers of Health Evelyn ual Screening 10/09/2024 COVID-19 Vaccine (2024-2 6 season) 2025 04/27/2022, 09/23/2021, 01/18/2021, Additional history exists Influenza Vaccine (#1) 2025 , 07/31/2023, 07/02/2021, Additional history exists Basic Metabolic Panel 08/13/2025 08/13/2024 , 02/14/2024, 12/31/2023 Cologuard 08/10/2026 08/10/2023, 08/10/2023 Colon Cancer Screening 08/10/2026 DTaP,Tdap,and Td Vaccines (2 - Td or Tdap) 07/10/2029 07/10/2019 Zoster Vaccines Completed 06/27/2022, 04/25/2022 Pneumococcal Vaccine: 50+ Years Completed , 06/07/2019 RSV Vaccine (60+ years old a nd patients) Completed 02/16/2024 Hepatitis B Vaccines Completed 04/16/2024, 02/16/2024, 08/14/2019 Insurance [employer] Care Teams Dot Net Developer Relationship Specialty Start Date End Date Koki Vu [address] [place] [address] [place] [address] PCP - General 12/26/23
--- OUTSIDE RECORDS SUMMARY | 2025-07-28 07:55 | XMS_ITS | Clinical Summary ---
Author Organization [facility] Address [address] [place] [address] Care Team Providers Care Kerrick Kleaner Operator Name Role Phone Jessica Rogers MD Primary Care Provider [phone] Social History Tobacco Use Types Packs/Day Years Used Date Smoking Tobacco: Never Assessed Sex and Gender Information Value Date Recorded Sex Assigned at Not on file Legal Sex Male 2:36 PM EST Gender Identity Not on file Sexual Orientation Not on file Plan of Treatment Health Maintenance Due Date Last Done Comments Colorectal Cancer Screening: Colonoscopy 1965 DTaP,Tdap,and Td Vaccines (1 - Tdap) 1982 Pneumococcal Vaccine: 50+ Ye ars (1 of 1 - PCV) 2013 Zoster Vaccines (1 of 2) 2013 Cholesterol Screening (Lipid Panel) 09/07/2022 HIV Screening 09/07/2022 Hepatitis C Screening 09/07/2022 Social Influencers of Health Screening 09/07/2022 Depression Screening 10/09/2024 COVID-19 Vaccine ( - 2023-2 5 season) 2025 Influenza Vaccine (#1) 2025 RSV Immunization Adult [...] age to complete this topic Care Teams Kerrick Kleaner Operator Relationship Specialty Start Date End Date Jessica Rogers MD [address] [place] [phone] PCP - General General Surgery 09/22/21
--- OUTSIDE RECORDS SUMMARY | 2025-07-28 07:55 | XMS_ITS | Encounter Summary ---
Author Organization [employer] Address [address] [facility] [address] [place] [address] Care Team Providers Care Jump Iron Machine Presser Name Role Phone Koki Vu MD Primary Care Provider [phone] Reason for Visit * Reason Comments Med Refill Encounter Details Date Type Department Care Team ([facility] st Contact Info) Description 10/25/2023 Refill [facility] [address] [place] [address] Koki Vu MD [address] [place] [address] Social History Tobacco Use Types Packs/Day Years [...] documented as of this encounter Care Teams Jump Iron Machine Presser Relationship Specialty Start Date End Date Koki Vu MD [address] [place] [phone] PCP - General Family Medicine 10/23/20 [place] OfficerBrewery Representative 06/17/24 documented as of this encounter
[2025-07-28 08:08] VITALS: BP 120/80; PULSE 84; O2SAT 97; BMI 29.4
--- NOTE | 2025-07-28 08:08 | MHC.OFFVIS ---
Vital Signs 07/28/25 08:08 Height 5 ft 3 in Weight 166 lb BMI 29.4 BP 120/80 Blood Pressure Location Rt brachial Position Sitting Pulse 84 Pulse Source Pulse Oximeter Pulse Oximetry (%) 97 Oxygen Delivery Method Room Air Intake Visit Reasons: 6 mo follow up Accompanied by: Self / Same As Patient Allergies fremanezumab-vfrm (From [employer] Autoinjector) Allergy (Unknown, Verified 07/28/25 08:13) Rash opiods Allergy (Unknown, Uncoded 07/28/25 08:13) Rash Medication List - Last Reconciled 07/28/25 by CARO Cunningham albuterol sulfate 90 mcg/actuation (Ventolin HFA) 2 puffs inhalation Q4H PRN atogepant (Qulipta) 60 mg PO DAILY azithromycin 500 mg PO DAILY 3 days buspirone 10 mg PO TID celecoxib (Celebrex) 200 mg PO BID PRN cholecalciferol (vitamin D3) 50 mcg PO DAILY diclofenac sodium 1% (Voltaren Arthritis Pain) 2 grams topical QID PRN dicyclomine 10 mg PO TID duloxetine 20 mg PO esomeprazole magnesium 40 mg PO DAILY etanercept (Enbrel SureClick) 50 mg subcut QWEEK fluticasone propion-salmeterol 250-50 mcg/dose (Advair Diskus) 1 ea PO BID fluticasone propionate 50 mcg/actuation 1 spray intranasal DAILY guaifenesin ER (Mucinex) 1,200 mg PO BID levothyroxine 88 mcg PO DAILY@0600 lidocaine 5% 1 patch topical DAILY PRN loratadine 10 mg PO DAILY magnesium oxide 400 mg PO DAILY polyethylene glycol 3350 (ClearLax) 17 grams PO BID PRN pregabalin 225 mg PO BID riboflavin (vitamin B2) 400 mg PO DAILY 90 days sucralfate 10 mL PO BID sumatriptan succinate 50 - 100 mg orally at onset of headache, may repeat in 2 hrs PRN; max 2 tabs per day or 4 tabs/week (may take with Tylenol) 30 days HPI Comments Details: 07/28/2025, HPI: The patient is a right-handed 60-year-old male presenting with follow-up concerns for obstructive sleep apnea and migraine, however he would also like to discuss bilateral hand numbness and pins and needles. Patient denies any significant interval history changes. He is being f/b rheumatology and pain management for chronic neck pain and psoriatic arthritis. He reports chronic, but worsening BUE, L > R, hand numbness, pins and needles sensation, and weakness, more so in the 1st fingers, which is present all the time. He did have a left-hand trigger finger injection by rheumatology, which was helpful. He does report difficulty opening jars. He walks with a cane, held in his left hand. He does have chronic posterior neck pain as well, are times neck pain may radiate down right forearm into right 1st finger. Obstructive Sleep Apnea: - Patient has a history of obstructive sleep apnea and uses a CPAP machine. - Reports challenges in breathing sometimes, feeling unable to inhale or exhale, especially when waking up. - Sometimes experiences congestion and uses a nasal spray for relief, but typically uses this in the morning. - Reports using the CPAP machine most nights and occasionally adjusts it or removes it at night due to breathing difficulties. - He does sleep with his head slightly elevated. - 04/29/2025 - 07/27/2025, CPAP compliance report: 88% usage, average use of 5 hours and 33 minutes, APAP settings 4 to 10 cm H2O w/ EPR 3 during ramp only, residual AHI of 0.7 events per hour. - He endorses using distilled water and having sufficient CPAP supplies. Migraine: - History of migraine, currently managed with Qulipta. - Reports significant improvement with Qulipta; no severe headaches in the past month. - No reported side effects from Qulipta. 01/27/2025, HPI: 59-yr-old male presents for f/u visit of DAYNA and headache. Pt is accompanied by his . Patient reports that he continues to have neck pain. Following the cervical spine MRI which showed cervical degenerative disc disease, patient has seen neurosurgery and continue to follow-up with pain management. He is under consideration to trial a sprint PNS procedure. Pt reports he is having a constant migraine headache, which is associated with photophobia, phonophobia, nausea, nausea, green ball, activity intolerance. Patient started Ajovy, but generally he developed small rash after the 1st injection, and then more diffuse urticaria rash after the 2nd injection. It is unclear if he had tongue swelling or shortness breath with this. He did see treatment of this from an outside provider, given a steroid cream, and the rash resolved. The Ajovy has been added to his allergy list. Patient does feel that sumatriptan was helpful. Patient continues to be compliant with his CPAP, overall usage 100% in his residual AHI is less than 1 per hour. He does note that the air pressure can be bothersome especially in his nose. He denies excessive snoring when he does not use his CPAP. Is prone to nasal congestion, does use Flonase. 07/09/2024 HPI: He continues to have constant neck and head pressure which can move into his face, and at times the neck has painful clicking which radiates up the back of the head, more so on the right, which is a stabbing pain and also into his shoulders. He is generally photophobic. Headache is a/w photophobia, phonophobia, nausea, brain fog, activity intolerance. Sometimes he cannot keep his glasses on d/t allodynia. He states the headache intensity varies- moderate-severe depending in the time. The headache makes it difficult to sleep. Is taking Amitriptyline at times, as it is not tolerated- makes him too sleepy. He is again seeing pain management. He is f/b rheumatolgy for psoriatric arthitis. He is f/b ENT for Mild esophageal dysmotility, dysphagia, globus sensation, hoarseness. Nov 2023, MR/MR head/brain wo con IMPRESSION: No acute intracranial process. Normal MRI of the brain. Upper cervical spondylosis. 11/16/23, CT/CT soft tissue neck w IV con IMPRESSION: 1. There is no cervical lymphadenopathy. No masses are demonstrated in the neck. 2. The study redemonstrates the sequelae of the ACDF at C5-C6 and C6-C7. There is marked narrowing of intervertebral disc height at C4-C5. 3. There is a relatively well-defined area of enhancement in the right floor of mouth, which may be consistent with a varix; this is unchanged. Pt reports he continues to have some difficulty breathing when he uses his CPAP. Feels the pressure is too strong. [employer] Compliance Report Usage 06/09/2024 - 07/08/2024 Usage days 29/30 days (97%) >= 4 hours 29 days (97%) < 4 hours 0 days (0%) Usage hours 181 hours 55 minutes Average usage (total days) 6 hours 4 minutes Average usage (days used) 6 hours 16 minutes Median usage (days used) 6 hours 12 minutes Total used hours (value since last reset - 07/08/2024) 4,801 hours [employer] 11 AutoSet Serial number [id number] Mode AutoSet Min Pressure 6 cmH2O Max Pressure 10 cmH2O EPR Ramp Only EPR level 2 Response Soft Therapy Pressure - cmH2O Median: 7.1 95th percentile: 9.0 Maximum: 9.6 Leaks - L/min Median: 7.1 95th percentile: 29.8 Maximum: 42.5 Events per hour AI: 0.4 HI: 0.2 AHI: 0.6 Apnea Index Central: 0.1 Obstructive: 0.3 Unknown: 0.0 RERA Index 0.3 PFSH 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 Venous congestion Pain in right lower leg Lipoma of scalp Kidney cysts Spondylosis of thoracic spine Spondylosis of lumbar spine Schatzki's ring Fatty liver HTN (hypertension) Pre-diabetes Dysphagia Asthma Hx of chest pain DAYNA on CPAP Hypothyroid Psoriasis Psoriatic arthritis Chronic pain Mood disorder Depression Avascular necrosis Chronic pain syndrome Spondylosis of lumbar region without myelopathy or radiculopathy Spondylosis, cervical Degeneration, intervertebral disc, cervical Surgical History History of back surgery History of surgery Status post excision of lipoma (~10/21/21) Status post cardiac catheterization Hx of cardiac cath H/O neck surgery Hx of hand surgery Hx of endoscopy History of colonoscopy Family History Father Cirrhosis Alcoholism Mother Diabetes HTN (hypertension) Parkinson disease Brother Cirrhosis Alcoholism Social History Household Members: Spouse and Children Housing: House Are you a primary home health care social worker to a significant other at home: No Do you presently have visiting nurse or other home services: Yes Alcohol intake: never Patient Tobacco Use Status: Never used Tobacco Tobacco use type: Cigarette Second Hand Smoke Exposure: No service: No Current occupational status: disabled Current occupation: rt handed Physical Exam Vital Signs: Last Vital Signs Pulse 84 07/28/25 08:08 BP 120/80 07/28/25 08:08 Pulse Ox 97 07/28/25 08:08 Oxygen Delivery Method Room Air 07/28/25 08:08 BMI result Body Mass Index 29.4 Const General: cooperative and no acute distress Orientation/consciousness: patient oriented x3 Resp Effort & Inspection: normal respiratory effort and able to speak in complete sentences Neuro Other: Positive bilateral, left more so than right, radial nerve (at anterior wrist) compression test. Bilateral 1st fingers rest knee medially. Bilateral hand grasp: mild weakness, more so on left. Limited cervical range of motion. Antalgic gait, with cane held in left hand. General: patient oriented x3 Cranial nerves: Yes CN's II-XII intact bilaterally Cognition (Neuro): normal cognition Deep tendon reflexes (DTR's): Right triceps reflex intensity grade: 2+, Left triceps reflex intensity grade: 2+, Rt Biceps (C5, C6): 2+, Left biceps reflex intensity grade: 2+, Right brachioradialis reflex intensity grade: 2+ and Left brachioradialis reflex intensity grade: 2+ Psych Appearance: grossly normal Mental Status: mental status grossly normal Speech and movement: Clear speech present Affect: normal affect Attitude: cooperative Results Reviewed Results Reviewed: 08/04/2024,MR/MR cervical spine wo con IMPRESSION: 1. Since the prior MRI, there has been anterior fusion and discectomy of C5-C7 with disc prostheses and oblique interbody endplate anchors. Hardware creates localized susceptibility artifact. The central canal has been decompressed at C5-6 and C6-7. 2. There is mild to moderate central canal stenosis at C4-5, above the fusion construct, where there is edematous endplate changes, a disc osteophytic ridge complex which indents minimally upon the ventral cord without cord impingement. Worsening degenerative disc, uncinate, and facet changes contribute to severe bilateral right greater than left neural foraminal stenosis. 3. At C5-6, there is moderate right neural foraminal stenosis. At C6-7, there is severe bilateral neural foraminal stenosis. At C7-T1, there is mild left and moderate to severe right neural foraminal stenosis. At T1-T2, there is moderate to severe right greater than left neural foraminal stenosis. 4. There is no evidence of cord impingement or signal abnormality. 5. Edematous endplate changes at C4-5. 6. See above for further detail and ancillary findings. Assessment & Plan Assessment & Plan (1) Chronic migraine without aura: Code(s): G43.709 - Chronic migraine without aura, not intractable, without status migrainosus Category: Medical Qualifiers: Status migrainosus presence: without status migrainosus Intractability: not intractable Qualified Code(s): G43.709 - Chronic migraine without aura, not intractable, without status migrainosus (2) DAYNA (obstructive sleep apnea): Comment: On CPAP. Code(s): G47.33 - Obstructive sleep apnea (adult) (pediatric) Category: Medical (3) Cervicalgia of liwoinad-xhdbpgo-bvnsj region: Code(s): M54.2 - Cervicalgia Category: Medical (4) Bilateral occipital neuralgia: Code(s): M54.81 - Occipital neuralgia Category: Medical (5) Numbness and tingling in both hands: Code(s): R20.0 - Anesthesia of skin; R20.2 - Paresthesia of skin Category: Medical Plan Discussion notes During the visit, I discussed with the patient the management of his obstructive sleep apnea and migraine. We reviewed the CPAP compliance report, which shows good usage, though he experiences occasional difficulty breathing. I advised him to continue using the nasal spray before using the CPAP, especially when congested. We also discussed the effectiveness of Qulipta for his migraine management, which the patient reports as beneficial without side effects. I recommended continuing Qulipta as it significantly reduces his migraine attacks. Concerning his hand symptoms, suggesting possible radial neuropathy versus polyneuropathy syndrome in the setting of psoriatic arthritis, I discussed scheduling nerve studies to further assess the condition. I also mentioned that he should use Tylenol for pain if necessary, following the nerve conduction study. We will follow up with further recommendations following this study. Patient was informed and verbally consented to the use of an ambient scribe for clinic note documentation during this visit. For BUE numbness, pins and needles, and weakness: Patient is advised to undergo BUE EMG/NCS. For DAYNA: Continue APAP 4-10 cmH2O w/ EPR 3 and ramp time 30 minutes, as patient continues to have good overall clinical effect from use. Flonase q.h.s. Continue Azelastine 137 mcg intranasal nasal spray 1-2 sprays into each nostril following Flonase. Advised to use at night as needed, in hopes this improves nasal congestion and improves PAP tolerance. Continue to clean and change PAP supplies routinely. Continue to use distilled water in Pap water tank reservoir For cervicialgia and occipital neuralgia s/s: Follow-up with pain management as scheduled. For acute chronic migraine w/o aura tx: Continue Sumatriptan 100mg tab, 1/2 - 1 tab (50-100mg) at onset of headache, may repeat in 2 hours. Max of 2 tabs (200mg) per 24 hours. May adjunct with OTC Tylenol 650-1000mg q 4-6 hours prn. For chronic migraine w/o aura prevention tx: Riboflavin 400 mg daily in a.m. Magnesium 400 mg daily at bedtime Continue Atogepant (Qulipta) 60mg daily at bedtime. Previous migraine prevention tx trials: Amitriptyline 50mg- ineffective and not tolerated. Ajovy-unclear effectiveness, developed allergic reaction. Migraine tx contraindications: Beta-blockers d/t asthma dx. Will follow-up upon review of above and patient to follow-up in clinic in 6 months or sooner prn. Orders: Orders NE electromyogram (EMG) Today L40.50 - Arthropathic psoriasis, unspecified, R20.0 - Anesthesia of skin, R20.2 - Paresthesia of skin NE nerve conduction velocity Today L40.50 - Arthropathic psoriasis, unspecified, R20.0 - Anesthesia of skin, R20.2 - Paresthesia of skin Medications: Changed From atogepant (Qulipta) 60 mg PO DAILY G43.709 - Chronic migraine without aura, not intractable, without status migrainosus To atogepant (Qulipta) 60 mg PO DAILY 30 tabs 6RF 30 days G43.709 - Chronic migraine without aura, not intractable, without status migrainosus Refilled sumatriptan succinate 50 - 100 mg orally at onset of headache, may repeat in 2 hrs PRN; max 2 tabs per day or 4 tabs/week (may take with Tylenol) 12 tabs 6RF migraine headache 30 days azelastine administer into each nostril 137 mcg (0.137 mL) intranasal BID 8.22 mL 6RF 30 days Coding Level of Care Code Est Pt Level 4 (21442) Diagnoses Chronic migraine without aura without status migrainosus, not intractable G43.709 Status migrainosus presence: without status migrainosus Intractability: not intractable DAYNA (obstructive sleep apnea) G47.33 Cervicalgia of jkuhicxk-dgmuvnh-zjdtu region M54.2 Bilateral occipital neuralgia M54.81 Numbness and tingling in both hands R20.0; R20.2
== END 2025-07-28 09:02 | disposition home or self-care (01) ==
LOC: HO.HSMS 07:52
PROVIDERS: PCP Family Medicine; Visit Provider Nurse Practitioner Family
DX: G43.709 Chronic migraine without aura, not intractable, without status migrainosus (principal); G47.33 Obstructive sleep apnea (adult) (pediatric); M54.2 Cervicalgia; M54.81 Occipital neuralgia; R20.0 Anesthesia of skin; R20.2 Paresthesia of skin
CPT/HCPCS: 99214

== ENCOUNTER → 2025-07-28 07:52 | Outpatient (BNVA) | payer MEDICAID, SELFPAY | PROVIDERS: PCP Family Medicine; Visit Provider Nurse Practitioner Family | DX: G43.709 Chronic migraine without aura, not intractable, without status migrainosus (principal); G47.33 Obstructive sleep apnea (adult) (pediatric); M54.2 Cervicalgia; M54.81 Occipital neuralgia; R20.0 Anesthesia of skin; R20.2 Paresthesia of skin; L40.50 Arthropathic psoriasis, unspecified; Z99.89 Dependence on other enabling machines and devices | CPT/HCPCS: 99212 ==

== ENCOUNTER 2025-08-25 10:35 | Outpatient (AMB) | payer MEDICAID, SELFPAY ==
[2025-08-25 10:37] VITALS: BP 128/77; PULSE 69; BMI 28.1
--- NOTE | 2025-08-25 10:37 | MHC.OFFVIS ---
Vital Signs 08/25/25 10:37 Height 5 ft 3 in Weight 158 lb 11.725 oz BMI 28.1 BP 128/77 Blood Pressure Location Lt brachial Position Sitting Pulse 69 Intake Visit Reasons: 4 mo f/u Allergies fremanezumab-vfrm (From [employer]) Allergy (Unknown, Verified 08/25/25 10:40) Rash opiods Allergy (Unknown, Uncoded 08/25/25 10:40) Rash HPI HPI 4 mo f/u: Details: 60 yr old m here for f/u RECAP: [facility] [place] initially: c/o tightness in his throat, been on protonix for GERD, well controlled anxiety regarding swallowing and fear of choking but not actually choking. he had been told he has prominent spur in the neck which maybe causing his symptoms by his neurosurgeon CT 2018--fatty liver, liver cyst, bilobed and septated Ba swallow with prominent cricopharyngeal sphincter EGD --: LA grade A esophagitis, schatzki ring, balloon dilation w tear noted, antral erosive gastritis, bulbar duodenitis reflux changes on bx he was still c/o sx at f/u with saliva choking him, tightness PCP ordered us and pos for fatty liver, LFT have been normal. he can swallow food without any issue except for one occasion 4 d felt like some sfood stuck in stomach still taking carafate and pantopRAZOLE, feels doesn't help him seeing pain management for hip I ordered cardiac eval due to SOB,this was neg RAST testing neg OTHER DATA-- MBS ---unremarkable MRI--10/2020--Fatty liver. Several liver cysts, largest a minimally complex cyst measuring 4.5 x 3.6 cm in the right lobe of the liver. 1 cm probable complex cyst in the lower pole of the left kidney. Diverticulosis of the colon. repeat MRI 04/2021--dominant cyst central right lobe with circumscribed macrolobulated margins is without significant change in size, measuring 4.6 x 3.8 x 4.5 cm on current study. Prior measurement is 4.4 x 3.7 x 4.4 cm on MR 10/28/2020 and 3.9 x 3.2 [address] abdomen 07/18/2019, (both prior exams remeasured in same orientation). No solid component or visible septation. EGD with dilation 05/06/21 Impression/Findings: schatzki ring esophagitis gastritis duodenitis maybe due to medications i.e CCB, SSRI GES 08/2021-- nml emptying at 4 hrs He had a lot of mucous and sputum and I had given him loratadine, pepcid A rept MRI was ordered 08/26/22 with stable liver and renal cysts Ba swallow with tab 09/2022 w/o stricture, some dysmotility noted US: 01/2023-- liver cyst and small kidney cysts, fatty liver, mild raised elastography CT 02/28- liver cysts were stable, no acute path (this CT was ordered by ED) KUB: 08/31-- moderate constipation Ba swallow: Mild to moderate cricopharyngeal achalasia, Status post anterior fusion C5-C7 without gross complication. Prominent ventral C4-C5 osteophyte without mass effect. small hiatal hernia EGD 08/01 with savary dilation: small hiatal hernia noted schatzki ring He had admission 03/26/25 with diarrhea and abdominal pain, he was pos for covid and campylobacter INTERIM: stools are regular now no n/v appetite is good no blood in stool he has diffuse itchiness, he gets some blisters, then rupture and gets some pigmentation no scabies exposure he has cat and dog at home but denies they have fleas EXAM: GENERAL: The patient is well developed and nontoxic.-obese VITAL SIGNS:see workflow HEENT: Nonicteric sclerae, PERRLA, EOMI. Oropharynx clear. Moist mucous membranes. Conjunctivae appear well perfused. No thyroid mass. CHEST: Chest wall is tender to touch HEART: Regular rate and rhythm without murmurs. LUNGS: Clear to auscultation bilaterally. ABDOMEN: Soft, positive bowel sounds, non tender, no organomegaly. SKIN: dry skin, few discolored spots, no erythematous spots noted NEUROLOGIC: Cranial nerves II-XII intact without motor/sensory deficit. 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 Venous congestion Pain in right lower leg Lipoma of scalp Kidney cysts Spondylosis of thoracic spine Spondylosis of lumbar spine Schatzki's ring Fatty liver HTN (hypertension) Pre-diabetes Dysphagia Asthma Hx of chest pain DAYNA on CPAP Hypothyroid Psoriasis Psoriatic arthritis Chronic pain Mood disorder Depression Avascular necrosis Chronic pain syndrome Spondylosis of lumbar region without myelopathy or radiculopathy Spondylosis, cervical Degeneration, intervertebral disc, cervical Surgical History History of back surgery History of surgery Status post excision of lipoma (~10/21/21) Status post cardiac catheterization Hx of cardiac cath H/O neck surgery Hx of hand surgery Hx of endoscopy History of colonoscopy Family History Father Cirrhosis Alcoholism Mother Diabetes HTN (hypertension) Parkinson disease Brother Cirrhosis Alcoholism Social History Household Members: Spouse and Children Housing: House Are you a primary child care associate teacher to a significant other at home: No Do you presently have visiting nurse or other home services: Yes Alcohol intake: never Patient Tobacco Use Status: Never used Tobacco Tobacco use type: Cigarette Second Hand Smoke Exposure: No service: No Current occupational status: disabled Current occupation: rt handed Physical Exam Vital Signs: Last Vital Signs Pulse 69 08/25/25 10:37 BP 128/77 08/25/25 10:37 BMI result Body Mass Index 28.1 Assessment & Plan Assessment & Plan (1) Rash: Code(s): R21 - Rash and other nonspecific skin eruption Category: Medical Plan: as above Medications: New emollient combination no.71 (Lubriderm Advanced Therapy lotion) 1 ea topical TID 473 mL 0RF Coding Level of Care Code Est Pt Level 3 (80509) Diagnoses Rash R21
== END 2025-08-25 11:15 | disposition home or self-care (01) ==
LOC: HO.HGI 10:35
PROVIDERS: PCP Family Medicine; Visit Provider Internal Medicine Gastroenterology
DX: R21 Rash and other nonspecific skin eruption (principal)
CPT/HCPCS: 99213

== ENCOUNTER → 2025-08-25 10:35 | Outpatient (BNVA) | payer MEDICAID, SELFPAY | PROVIDERS: PCP Family Medicine; Visit Provider Internal Medicine Gastroenterology | DX: R21 Rash and other nonspecific skin eruption (principal) | CPT/HCPCS: 99212 ==

== ENCOUNTER 2025-08-28 14:42 | Outpatient (REF) | payer MEDICAID, SELFPAY ==
--- NOTE | 2025-08-28 15:11 | EMG_ITS ---
Chief complaint: Numbness and pain both hands Referred by:?Yu Vizcarra MD Procedure done: Bilateral upper extremities NCS/EMG Bilateral median and ulnar motor studies were performed. Bilateral median and ulnar mixed sensory and radial sensory studies were performed. Bilateral 2nd and 5th digit ortho sensory studies were performed an EMG was performed. Findings: Bilateral median motor distal latencies were mildly prolonged. Similar pattern was noted with median mixed distal latencies with mild slowing of conduction velocity. Otherwise no significant abnormality noted. Impression: [id number] bilateral median neuropathy across carpal tunnel Codin 12076 2 extremities MTDD
--- OUTSIDE RECORDS SUMMARY | 2025-08-28 20:06 | XMS_ITS | Encounter Summary ---
Author Organization [employer] Address [address] [place] [address] Care Team Providers Care Funeral Pre Arrangement Specialist Name Role Phone Koki Vu MD Primary Care Provider Encounter Details Date Type Department Care Team (Late st Contact Info) Description 02/05/2024 Orders Only [facility] [address] [place], [place] [phone] Provider, MD Nasima Social History Tobacco Use [...] documented as of this encounter Care Teams Funeral Pre Arrangement Specialist Relationship Specialty Start Date End Date Koki Vu MD [address] [place] [id number] PCP - General Family Medicine 10/23/20 Addie Manager [employer] Winder 06/17/24 documented as of this encounter
--- OUTSIDE RECORDS SUMMARY | 2025-08-28 20:06 | XMS_ITS | Clinical Summary ---
Author Organization [facility] Address [address] [place] [address] Care Team Providers Care Portal Developer Name Role Phone Unavailable Primary Care Provider [...] to complete this topic , [address] [place] [address]
--- OUTSIDE RECORDS SUMMARY | 2025-08-28 20:06 | XMS_ITS | Encounter Summary ---
Author Organization [employer] Address 75 [facility] 7t [place] [address] Care Team Providers Care Fitness Assistant Name Role Phone Koki Vu MD Primary Care Provider [phone] Reason for Visit * Reason Comments Med Refill Encounter Details Date Type Department Care Team ([facility] st Contact Info) Description 10/25/2023 Refill [facility] CHC MED & PEDS 505 [place] [address] Koki Vu MD 505 [place] [address] Social History Tobacco Use Types Packs/Day Years [...] as of this encounter Care Teams Fitness Assistant Relationship Specialty Start Date End Date Koki Vu MD [address] [place] [address] PCP - General Family Medicine 10/23/20 [facility]patient [facility] Physical TherapistStationary Engineer 06/17/24 documented as of this encounter
--- OUTSIDE RECORDS SUMMARY | 2025-08-28 20:06 | XMS_ITS | Encounter Summary ---
Author Organization [employer] Address 75 [facility] 7t [place] [address] Care Team Providers Care Production Stage Manager Name Role Phone Koki Vu MD Primary Care Provider [phone] Reason for Visit * Reason Comments Med Refill Encounter Details Date Type Department Care Team ([facility] st Contact Info) Description 10/25/2023 Refill [facility] CHC MED & PEDS 505 [place] [address] Koki Vu MD 505 [place] [address] Social History Tobacco Use Types Packs/Day Years [...] documented as of this encounter Care Teams Production Stage Manager Relationship Specialty Start Date End Date Koki Vu MD [address] [place] [address] PCP - General Family Medicine 10/23/20 Addie Business Services Specialist SalesLead Quality Control Technician 06/17/24 documented as of this encounter
--- OUTSIDE RECORDS SUMMARY | 2025-08-28 20:06 | XMS_ITS | Encounter Summary ---
Author Organization [employer] Address [address] [facility] 7t [place] [address] Care Team Providers Care Gyroscope Technician Name Role Phone Koki Vu MD Primary Care Provider [phone] Encounter Details Date Type Department Care Team ([facility] st Contact Info) Description 09/27/2024 Telephone [facility] CHC MED & PEDS 505 [place], [place] [phone] Koki Vu MD 505 [place], [place] [phone] Social History Tobacco Use Types Packs/Day Years [...] t he electric, gas, oil or water [email or web address] threatened to shut off services in your [...] EST TC from Satinder flores DO with [facility] pulmonology requesting a call back from pcp to discuss further medical options. Best contact # [phone]. documented in this encounter Plan of Treatment Not on file documented as of this encounter Visit Diagnoses Not on filedocumented in this encounter Additional Health Concerns Assessment Noted Time PHQ-9 Depression Total Score: 17 023 11:11 AM EDT documented as of this encounter Care Teams Gyroscope Technician Relationship Specialty Start Date End Date Koki Vu MD [address] [place] [address] PCP - General Family Medicine 10/23/20 Addie Women'S Swim CoachMilk Pickup Driver 06/17/24 documented as of this encounter
--- OUTSIDE RECORDS SUMMARY | 2025-08-28 20:06 | XMS_ITS | Encounter Summary ---
Author Organization [employer] Address [address] [place] [address] 7t [place] [address] Care Team Providers Care Nuclear Process Engineer Name Role Phone Koki Vu MD Primary Care Provider [phone] Reason for Visit * Reason Onset Date Comments Durable Medical Equipment 02/07/2024 Encounter Details Date Type Department Care Team ([facility] st Contact Info) Description 02/07/[address] [facility] CHC MED & PEDS 505 [place] [address] Koki Vu MD 505 [place] [address] Durable Medical Equipment Social History Tobacco Use [...] documented as of this encounter Care Teams Nuclear Process Engineer Relationship Specialty Start Date End Date Koki Vu MD [address] [place] [address] PCP - General Family Medicine 10/23/20 Addie Graduate AssistantCab Station Attendant 06/17/24 documented as of this encounter
--- OUTSIDE RECORDS SUMMARY | 2025-08-28 20:06 | XMS_ITS | Encounter Summary ---
Author Organization [employer] Address 75 [facility] 7t [place] [address] Care Team Providers Care Reference Archivist Name Role Phone Koki Vu MD Primary Care Provider [phone] Reason for Visit * Reason Comments Med Refill Encounter Details Date Type Department Care Team ([facility] st Contact Info) Description 03/28/2024 Refill [facility] CHC MED & PEDS 505 [place] [address] Koki Vu MD 505 [place] [address] Social History Tobacco Use Types Packs/Day Years [...] documented as of this encounter Care Teams Reference Archivist Relationship Specialty Start Date End Date Koki Vu MD [address] [place] [address] PCP - General Family Medicine 10/23/20 Addie Supervisor Multifocal LensMarble And Granite Polisher 06/17/24 documented as of this encounter
--- OUTSIDE RECORDS SUMMARY | 2025-08-28 20:06 | XMS_ITS | Encounter Summary ---
Author Organization [employer] Address [address] [facility] 7t [place] [address] Care Team Providers Care Sign Wirer Name Role Phone Koki Vu MD Primary Care Provider [phone] Encounter Details Date Type Department Care Team (Late st Contact Info) Description 08/23/2023 Abstract [facility] MEDICINE [address] [place] [address] Koki Vu MD 505 [place], [place] [phone] Social History Tobacco Use Types Packs/Day Years [...] documented as of this encounter Care Teams Sign Wirer Relationship Specialty Start Date End Date Koki Vu MD 230 [place] [address] PCP - General Family Medicine 10/23/20 Addie Offset Printing PressmenClothes Presser 06/17/24 documented as of this encounter
--- OUTSIDE RECORDS SUMMARY | 2025-08-28 20:06 | XMS_ITS | Clinical Summary ---
Author Organization 175 [facility] Address 175 [place] [address] Phone Care Team Providers Care Drawing Machine Operator Name Role Phone Jessica Rogers MD Primary Care Provider Social History Tobacco Use Types Packs/Day Years Used Date Smoking Tobacco: Never Assessed Sex and Gender Information Value Date Recorded Sex Assigned at Not on file Legal Sex Male 2:36 PM EST Gender Identity Not on file Sexual Orientation Not on file Plan of Treatment Upcoming Encounters Date Type Department Care Team ([facility] st Contact Info) Description 11/03/2025 10:15 AM EST Office Visit Orthopedic Surgery [place] [address] [phone] Tahir Rosas, DPMitzi [address] [address] Health Maintenance Due Date Last Done Comments Colorectal Cancer Screening: Colonoscopy 1965 DTaP,Tdap,and Td Vaccines (1 - Tdap) 1982 Pneumococcal Vaccine: 50+ Ye ars (1 of 1 - PCV) 2013 Zoster Vaccines (1 of 2) 2013 Cholesterol Screening (Lipid Panel) 09/07/2022 HIV Screening 09/07/2022 Hepatitis C Screening 09/07/2022 Social Influencers of Health Screening 09/07/2022 Depression Screening 10/09/2024 COVID-19 Vaccine (1 - 2024-2 6 season) 2025 Influenza Vaccine (#1) 2025 RSV [...] on patient's age to complete this topic Insurance MEDICAID - [place] Care Teams Drawing Machine Operator Relationship Specialty Start Date End Date Jessica Rogers MD [address] [place] [phone] PCP - General General Surgery 09/22/21
--- OUTSIDE RECORDS SUMMARY | 2025-08-28 20:06 | XMS_ITS | Clinical Summary ---
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 Psoriatic arthritis [...] ne, 13 Valent 06/07/2019 Pneumococcal conjugate PCV20,polysaccharide [id number] conjugate, adjuvant, PF (Prevnar 20) 02/01/2024 RSV, [...] ual Screening 10/09/2024 Influenza Vaccine (#1) 2025 , 07/31/2023, 07/02/2021, Additional history exists COVID-19 Vaccine (2024-2 6 season) 2025 04/27/2022, 09/23/2021, 01/18/2021, Additional history exists Basic Metabolic Panel 08/13/2025 08/13/2024 , 02/14/2024, 12/31/2023 Cologuard 08/10/2026 08/10/2023, 08/10/2023 Colon Cancer Screening 08/10/2026 DTaP,Tdap,and Td Vaccines (2 - Td or Tdap) 07/10/2029 07/10/2019 Zoster Vaccines Completed 06/27/2022, 04/25/2022 Pneumococcal Vaccine: 50+ Years Completed , 06/07/2019 RSV Vaccine (60+ years old a nd patients) Completed 02/16/2024 Hepatitis B Vaccines Completed 04/16/2024, 02/16/2024, 08/14/2019 Insurance [employer] Care Teams Steam Press Tender Relationship Specialty Start Date End Date Kkoi Vu [address] [place] [address] [place] [address] PCP - General 12/26/23
--- OUTSIDE RECORDS SUMMARY | 2025-08-28 20:07 | XMS_ITS | Encounter Summary ---
Author Organization [employer] Address [address] [address] Care Team Providers Care Logistics Planning Engineer Name Role Phone Koki Vu MD Primary Care Provider [phone] Reason for Referral * Consultation (Routine) - Closed Specialty Diagnoses / Procedures Referred By Contac t Referred To Contact Rheumatology Diagnoses Erosion of bone Tirso Mayfield MD 505 [place] [address] Phone: tel: fax: [facility] [address] [place] [address] Phone: tel: fax: Referral ID Status Reason Start Date Expiration Date V isits Requested Visits Authorized [id number] Closed Specialty Services Required 08/02/2024 08/02/2025 1 1 Encounter Details Date Type Department Care Team (Late st Contact Info) Description 08/02/2024 Orders Only [facility] CHC MED & PEDS 505 [place] [address] Tirso Mayfield MD 505 [place] [address] Erosion of bone (Primary Dx) Social History [...] AM EDT) Rheumatoid Factor <13.0 <15.0 IU/mL [facility] Blood Venous blood specimen / Unknown 08/08/2024 10:40 AM EDT 08/08/2024 1:17 PM EDT Tirso Jara MD LAB BLOOD ORDERABL ES Final Result Performing Organization Address [facility] de Phone Number [facility] [address] [place] [phone] * Cyclic Citrullinated Peptide (CCP) Antibody (IgG) (08/08/2024 10:40 AM EDT) Cyclic Citrullinated Peptide <16 UNITS [facility] Comment:Reference RangeNegat shalom: <20Weak Positive: 20-39Moderate Positive: 40-59Strong Positive: >59THIS TEST WAS PERFORMED AT:[employer] [place] [phone] RECINOS MD Blood Venous blood specimen / Unknown 08/08/2024 10:40 AM EDT 08/08/2024 1:17 PM EDT us Tirso Jara MD LAB BLOOD ORDERABL ES Final Result Performing Organization Address [facility] de Phone Number [facility] [address] [place] [phone] documented in this encounter Visit Diagnoses Diagnosis Erosion of bone- Primary documented in this encounter Additional Health Concerns Assessment Noted Time PHQ-9 Depression Total Score: 17 07/04/ 023 11:11 AM EDT documented as of this encounter Care Teams Logistics Planning Engineer Relationship Specialty Start Date End Date Koki Vu MD 230 [place] [address] PCP - General Family Medicine 10/23/20 Addie Store Sales ConsultantBlock Sawyer 06/17/24 documented as of this encounter
--- OUTSIDE RECORDS SUMMARY | 2025-08-28 20:07 | XMS_ITS | Clinical Summary ---
Author Organization [employer] Address [address] [place] [address] 7t [place] [address] Care Team Providers Care Lead Applications Developer Name Role Phone Koki Vu MD Primary Care Provider [phone] Allergies Active Allergy Reactions Criticality Noted Date [...] cholecalciferol (Vitamin D-3) 50 MCG (1999 UT) tabletIndication s:Vitamin D deficiency, unspecified TAKE 1 TABLET BY [...] tablet by mouth Once per day. Active atorvastatin (Lipitor) 80 MG tabletIndication s:Hyperlipidemia , unspecified hyperlipidemia type TAKE 1 TABLET BY MOUTH EVERY DAY AT BEDTIME 90 tablet 1 025 Active Ajovy 225 MG/1.5ML auto-injector INJECT 1.5 [...] tablet Take 60 mg by mouth. 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 Assessment & [...] per his request. 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) (Primary Dx); Trochanteric bursitis of left hip; Atopic dermatitis, unspecified type; Plantar fasciitis of left foot 08/06/2025 Travel 08/04/2025 Telephone [facility] MED & PEDS [address] [place] [address] Koki Vu MD traige 06/05/2025 Orders Only GENERIC EXTERNAL DATA DEPARTMENT Provider, Generic External Data 05/28/2025 Orders Only [facility] External Provider, [facility] 05/28/2025 Refill [facility] MED & PEDS 505 [place] [address] Koki Vu MD from Last 3 Months [...] Sign Reading Time Taken Comments Blood Pressure 124/78 08/06/2025 2:26 PM EDT Pulse 68 08/06/2025 2:26 PM EDT Temperature 36.7 C (98.1 F) 08/06/2025 2:26 PM EDT Respiratory Rate 14 08/06/2025 2:26 PM EDT Oxygen Saturation 98% 08/06/2025 2:26 PM EDT Inhaled Oxygen Concentration - - Weight 74.8 kg (165 lb) 08/06/2025 2:26 PM EDT Height 157.5 cm (5' 2 ) 08/06/2025 2:26 PM EDT Body Mass Index 30.18 08/06/2025 2:26 PM EDT Plan of Treatment Health Maintenance Due [...] Results * PSA,Total (06/05/2025 9:07 AM EDT) [facility] Prostate Specific Antigen 0.68 <0.05 - 4.0 ng/mL [facility] Comment:PSA methodology: Hugo Ordoñez i ChemiluminescentMicroparticle Immunoassay (CMIA) 06/05/2025 9:07 AM EDT 06/05/2025 9:07 AM EDT us Generic External Data Provider LAB BLOOD ORDERAB LES Final Result [facility] [address] [place] [phone] * (ABNORMAL) Basic Metabolic Panel (06/05/2025 9:07 AM EDT) [facility] Sodium 142 135 - 145 mmol/L [facility] Potassium 4.4 3.3 - 5.1 mmol/L [facility] Chloride 109(H) 96 - 108 mmol/L [facility] Carbon Dioxide 28 22 - 29 mmol/L [facility] Anion Gap 9(L) 12 - 20 [facility] Urea Nitrogen (BUN) 15 9 - 16 mg/dL [facility] Creatinine, Serum 1.24 0.5 - 1.4 mg/dL [facility] Estimated Glomerular Filt Rate 59 [facility] Comment:Chronic Kidney Disea se: Estimated GFR < 60 mL/min/1.58z9Sjforb Kidney Disease: Estimated GFR < 15 mL/min/1.73m2 Glucose 113 60 - 115 mg/dL [facility] Calcium 9.3 8.4 - 10.2 mg/dL [facility] Blood Venous blood specimen / Unknown 06/05/2025 9:07 AM EDT 06/05/2025 9:07 AM EDT us Koki Vu MD LAB BLOOD ORDERABLES Final Re sult [facility] [address] [place] [phone] * US Renal Complete (05/29/2025 2:55 PM EDT) Anatomical Region Laterality Modality Kidney Ultrasound 05/29/2025 2:55 PM EDT Narrative 05/29/2025 2:56 PM EDT [address] [address] Ultrasound Report Signed Patient: Kvng Ramon MR#: [id number] : 1965 Acct:[id number] Age/Sex: 60 / M ADM Date: 05/28/25 Loc: .US Attending Dr: Juli GUAMAN Ordering Physician: Juli Han Date of Service: 05/28/25 Procedure(s): US renal BI Accession Number(s): [id number] cc: Juli Han; Koki Vu MD CLINICAL [...] OV> 05/29/25 1456 DD/ 54 TD/TT: 05/29/251454 Striping Machine Operator: Procedure Note Donotuseinterpreter, Image - 05/29/2025 [place] [address] Ultrasound Report Signed Patient: Kvng Ramon EMR#: [id number] : 1965Acct:[id number] Age/Sex: 60 / MADM Date: 05/28/25 Loc: HO.US Attending Dr: Juli GUAMAN Ordering Physician: Juli Han Date of Service: 05/28/25 Procedure(s): US renal BI Accession Number(s): [id number] cc: Juli Han; Koki Vu MD CLINICAL [...] in OV> 05/29/251455 DD/ 54 TD/TT: 05/29/251454 Striping Machine Operator: [facility] External Provider IMG US PROCEDURES Final Result * (ABNORMAL) POCT HGB A1C (04/04/2025 10:05 AM EDT) Hemoglobin A1C 6.1(A) 4.0 - 5.7 % QC Media Lot # [id number] Comment:random Lot# Expiration Date [id number] Blood 04/04/2025 10:0 5 AM EDT Koki Vu MD POINT OF CARE TEST ENTER/EDIT ORDERABLES Final Result * (ABNORMAL) Lipid Panel, Standard (01/14/2025 9:22 AM EDT) Triglycerides 86 <150 mg/dL [facility] Comment:Desirable Triglyceri de: less than [...] 190 mg/dL HDL Cholesterol 42 >40 mg/dL [facility] Comment:Desirable HDL: great er than 40 mg/dL Note: This HDL assay may give artificially low results in patients with liver disease. Blood Venous blood specimen / Unknown 01/14/2025 9:22 AM EDT 01/14/2025 2:06 PM EDT Josee Collazo MD LAB BLOOD ORDERABLES Final Resul t Performing Organization Address [facility] de Phone Number [facility] [address] [place] [phone] * Hepatitis Panel, General (08/13/2024 11:49 AM EST) Pathologist [facility] Hepatitis A IgM Nonreactive Nonreactive [facility] [...] ORDERAB LES Final Result Performing Organization Address [facility] de Phone Number [facility] [address] [place] [phone] * Cologuard?? colon cancer screening (08/10/2023 3:59 PM EDT) Cologuard Result Negative Negative 08/17/20 9:57 AM [facility] (CLIA #:[id number]) Comment: NEGATIVE TEST RESULT. A negative Cologuard [...] Cordero et al, N Engl J Med 2014;370(14):7569-7729) The normal value (reference range) for this assay is negative. COLOGUARD RE-SCREENING RECOMMENDATION: Periodic colorectal cancer screening is an important part of preventive healthcare for asymptomatic individuals at average risk for colorectal cancer. Following a negative Cologuard result, the [place] Cancer Society and U.S. Multi-Society Task Force screening guidelines recommend a Cologuard re-screening interval of 3 years. References: [place] [employer] Guideline for Colorectal Cancer Screening: https://www.cancer.org/cancer/cytub-lebazx-gjikyy/kvfshcpuk-mpzaygfxc-vhgkrle/ac s-rec ommendations.html.; Delroy MULLIGAN, Rere OTERO, Guy RochaK, Colorectal Cancer Screening: Recommendations for Physicians and Patients from the U.S. Multi-Society Task Force on Colorectal Cancer Screening , Am J Gastroenterology 2017; 112:8893-8999. TEST DESCRIPTION: Composite algorithmic analysis of stool [...] Cordero et al, N Engl J Med 2014;370(14):3405-9062.) Cologuard may produce a false negative or false positive result (no colorectal cancer or precancerous polyp present at colonoscopy follow up). A negative Cologuard test result does not guarantee the absence of CRC or advanced adenoma (pre-cancer). The current Cologuard screening interval is every 3 years. ([place] Cancer Society and U.S. Multi-Society Task Force). Cologuard performance data in a 10,000 patient pivotal study using colonoscopy as the reference method can be accessed at the following location: www.[employer]/results. Additional description of the Cologuard test process, warnings and precautions can be found at www.[employer].com. Stool specimen (specimen) 08/10/2023 3:59 PM EDT 08/11/2023 6:19 PM EDT Koki Vu MD LAB MOLECULAR DIAGNOSTICS ORD ERABLES Final Result [facility] (CLIA #:[id number]) [address] [place] [place] [address], * Colonoscopy (04/17/2018 6:07 AM EDT) Historical Provider HEALTH MAINTENANCE Final Result from Last 3 Months or Most Recently Relevant to Health Maintenance [place] [address] [place] [address] C3 Care Teams Lead Applications Developer Relationship Specialty Start Date End Date Koki Vu MD [address] [place] [phone] PCP - General Family Medicine 10/23/20 Addie Director Of DietaryAir Sealing Technician 06/17/24
== END 2025-08-28 14:43 | disposition home or self-care (01) ==
LOC: HO.NEURO 14:42
PROVIDERS: PCP Family Medicine; Visit Provider Nurse Practitioner Family
DX: R20.0 Anesthesia of skin (principal); R20.2 Paresthesia of skin; L40.50 Arthropathic psoriasis, unspecified; M79.641 Pain in right hand; M79.642 Pain in left hand
CPT/HCPCS: 95886; 95913

== ENCOUNTER → 2025-08-28 15:11 | Outpatient (BNV) | payer MEDICAID, SELFPAY | PROVIDERS: PCP Family Medicine; Visit Provider Psychiatry & Neurology Neurology | DX: G56.03 Carpal tunnel syndrome, bilateral upper limbs (principal) | CPT/HCPCS: 95886; 95913 ==

== ENCOUNTER 2025-09-16 14:28 | Outpatient (REF) | payer MEDICAID, SELFPAY ==
--- NOTE | ~2025-09-16 | XR_ITS ---
EXAMINATION: XR HIP, LEFT CLINICAL INFORMATION: r/o femoral head collapse COMPARISON: Previous CT of the abdomen and pelvis March 2025 TECHNIQUE: Two views of the left hip. FINDINGS: Bone alignment is normal. No fracture or dislocation. Normal joint space. There is increased chondral peripheral sclerosis central lucency in the left femoral head suggestive of AVN similar to prior CT March 2025. Femoral head contour is smooth without evidence of femoral head collapse. Mild soft tissue calcification adjacent to the left greater trochanter. XR/XR hip LT min 2V IMPRESSION: Increased subchondral peripheral sclerosis with central lucency in the left femoral head suggestive of AVN. Smooth femoral head without evidence of collapse. Electronically signed by: Kiara Leslie MD 09/16/2025 03:10 PM [facility]
--- OUTSIDE RECORDS SUMMARY | 2025-09-16 20:26 | XMS_ITS | Encounter Summary ---
Author Organization [employer] Address 75 [facility] 7t [place] [address] Care Team Providers Care Internet Specialist Name Role Phone Koki Vu MD Primary Care Provider [phone] Encounter Details Date Type Department Care Team ([facility] st Contact Info) Description 09/16/2025 Results Follow-Up [facility] CHC MED & PEDS [address] [place], [place] [phone] Amadou Lazo CNP [address] [place] [address] XR Hip 2 or 3 Views Left Social History Tobacco Use Types Packs/Day Years [...] as of this encounter Miscellaneous Notes * Result Encounter Note - Amadou Lazo CNP - 09/16/2025 3:30 PM EST noe ROSAS already set up for appointment with ortho 09/18/25. documented in this encounter Plan of Treatment Not on file documented as of this encounter Visit Diagnoses Not on filedocumented in this encounter Additional Health Concerns Assessment Noted Time PHQ-9 Depression Total Score: 16 025 10:18 AM EDT documented as of this encounter Care Teams Internet Specialist Relationship Specialty Start Date End Date Koki Vu MD [address] [place] [phone] PCP - General Family Medicine 10/23/20 Addie Substation Operator ApprenticeSelf Defense Instructor 06/17/24 documented as of this encounter
--- OUTSIDE RECORDS SUMMARY | 2025-09-16 20:26 | XMS_ITS | Clinical Summary ---
Author Organization [facility] Address [address] [place] [address] Phone Care Team Providers Care Electrical And Instrument Technician Name Role Phone Jessica Rogers MD Primary Care Provider [phone] Social History Tobacco Use Types Packs/Day Years Used Date Smoking Tobacco: Never Assessed Sex and Gender Information Value Date Recorded Sex Assigned at Not on file Legal Sex Male 2:36 PM EST Gender Identity Not on file Sexual Orientation Not on file Plan of Treatment Upcoming Encounters Date Type Department Care Team ([facility] st Contact Info) Description 11/03/2025 10:15 AM EST Office Visit Orthopedic Surgery [place] [address] [phone] Tahir Rosas, DPM [address] [address] Health Maintenance Due Date Last Done Comments [...] topic Insurance MEDICAID - [place] Care Teams Electrical And Instrument Technician Relationship Specialty Start Date End Date Jessica Rogers MD [address] [place] [phone] PCP - General General Surgery 09/22/21
--- OUTSIDE RECORDS SUMMARY | 2025-09-16 20:27 | XMS_ITS | Clinical Summary ---
Author Organization [facility] Prior to 03/08/[address] [place] [address] Care Team Providers Care Sap Bobj Developer Name Role Phone Unavailable Primary Care [...]
--- OUTSIDE RECORDS SUMMARY | 2025-09-16 20:27 | XMS_ITS | Clinical Summary ---
Author Organization [employer] Address [address] [place] [address] 7t [place] [address] Care Team Providers Care Terrazzo Mechanic Name Role Phone Koki Vu MD Primary Care Provider [phone] Allergies Active Allergy Reactions Criticality Noted Date [...] per day. Active atorvastatin (Lipitor) 80 MG tabletIndications :Hyperlipidemia, [...] by mouth. Active triamcinolone (Kenalog) 0.1 % creamIndications: Atopic dermatitis, unspecified type Mix with cerave cream and apply 1x/d 80 g 2 Active Diclofenac Sodium (Voltaren) 1 % gelIndications:Av ascular necrosis of left femoral head (HCC),Trochanteri c bursitis of left hip Apply topically for pain. 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 ([facility]) 12/11/2017 Assessment & Plan (07/04/2023 4:16 PM EDT): PHQ9: 17,denies SI Already f w psychiatrist and therapist at [facility] ---advised to continue care and may [...] Encounters Date Type Department Care Team Description 09/16/2025 Results Follow-Up [facility] [address] [place] [address] Amadou Lazo CNP XR Hip 2 or 3 Views Left 08/22/2025 Refill [facility] [address] [place] [address] Koki Vu MD 08/06/2025 2:30 PM EDT Office Visit [facility] [address] [place] [address] Amadou Lazo CNP 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) (Primary Dx); Trochanteric bursitis of left hip; Atopic dermatitis, unspecified type; Plantar fasciitis of left foot 08/06/2025 Travel 08/04/2025 Telephone [facility] [address] [place] [address] Koki Vu MD traige from Last 3 Months Immunizations Immunization Administration [...] Procedure Name Priority Date/Time Associated Diagnosis Comments XR HIP 2 OR 3 VIEWS LEFT Routine 09/16/2025 2:45 PM EST 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) Trochanteric bursitis of left hip POCT GLYCATED HEMOGLOBIN, TOTAL Routine 04/04/2025 10:05 AM EDT Prediabetes LIPID PANEL, STANDARD Routine 01/14/2025 9:22 AM EDT Prediabetes HEPATITIS PANEL, GENERAL Routine 08/13/2024 11:49 AM EST LAB COLOGUARD COLON CANCER SCREEN Routine 08/10/2023 3:59 PM EDT Colon cancer screening COLONOSCOPY Routine 04/17/2018 6:07 AM EDT from Last 3 Months or Most Recently Relevant to Health Maintenance Results * XR Hip 2 or 3 Views Left (09/16/2025 2:45 PM EST) Anatomical Region Laterality Modality Lower Extremities, Hip Left Radiograp hic Imaging 09/16/2025 2:45 PM EST Narrative 09/16/2025 3:13 PM EST [address] [address] XRay Report Signed Patient: Kvng Ramon MR#: [id number] : 1965 Acct:[id number] Age/Sex: 60 / M ADM Date: 09/16/25 Loc: [facility] Attending Dr: Amadou Lazo NP Ordering Physician: Amadou Lazo NP Date of Service: 09/16/25 Procedure(s): XR hip LT min 2V Accession Number(s): [id number] cc: Koki Vu MD; Amadou Lazo NP Reason for Exam: r/o femoral head collapse EXAMINATION: XR HIP, LEFT CLINICAL INFORMATION: r/o femoral head collapse COMPARISON: Previous CT of the abdomen and pelvis March 2025 TECHNIQUE: Two views of the left hip. FINDINGS: Bone alignment is normal. No fracture or dislocation. Normal joint space. There is increased chondral peripheral sclerosis central lucency in the left femoral head suggestive of AVN similar to prior CT March 2025. Femoral head contour is smooth without evidence of femoral head collapse. Mild soft tissue calcification adjacent to the left greater trochanter. XR/XR hip LT min 2V IMPRESSION: Increased subchondral peripheral sclerosis with central lucency in the left femoral head suggestive of AVN. Smooth femoral head without evidence of collapse. Electronically signed by: Kiara Leslie MD 09/16/2025 03:10 PM EST Dictated By: Kiara Leslie MD Signed By: <Electronically signed by Kiara Leslie MD in OV> 09/16/25 1510 DD/ 1445 TD/TT: 09/16/25 1458 Rim Buster: ASHLEIGH Procedure Note Donotuseinterpreter, Image - 09/16/[address] [address] XRay Report Signed Patient: Kvng Ramon EMR#: [id number] : 1965Acct:[id number] Age/Sex: 60 / MADM Date: 09/16/25 Loc: HO.DAYOAY Attending Dr: Amadou Lazo OPERATIONS ASSOCIATE Ordering Physician: Amadou Lazo NP Date of Service: 09/16/25 Procedure(s): XR hip LT min 2V Accession Number(s): [id number] cc: Koki Vu MD; Amadou Lazo NP Reason for Exam: r/o femoral head collapse EXAMINATION: XR HIP, LEFT CLINICAL INFORMATION: r/o femoral head collapse COMPARISON: Previous CT of the abdomen and pelvis March 2025 TECHNIQUE: Two views of the left hip. FINDINGS: Bone alignment is normal. No fracture or dislocation. Normal joint space. There is increased chondral peripheral sclerosis central lucency in the left femoral head suggestive of AVN similar to prior CT March 2025. Femoral head contour is smooth without evidence of femoral head collapse. Mild soft tissue calcification adjacent to the left greater trochanter. XR/XR hip LT min 2V IMPRESSION: Increased subchondral peripheral sclerosis with central lucency in the left femoral head suggestive of AVN. Smooth femoral head without evidence of collapse. Electronically signed by: Kiara Leslie MD 09/16/2025 03:10 PM [facility] Dictated By: Kiara Leslie MD Signed By: <Electronically signed by Kiara Leslie MD in OV> 09/16/25 1510 DD/ 1445 TD/TT: 09/16/25 1458 Rim Buster: ASHLEIGH Amadou Lazo INDIVIDUAL SMALL GROUP INSTRUCTOR IMG XR PROCEDURES Final R esult * (ABNORMAL) POCT HGB A1C (04/04/2025 10:05 AM EDT) Hemoglobin A1C 6.1(A) 4.0 - 5.7 % QC Media Lot # [id number] Comment:random Lot# Expiration Date [id number] Blood 04/04/2025 10:0 5 AM EDT us Koki Vu MD POINT OF CARE TEST ENTER/EDIT ORDERABLES Final Result * (ABNORMAL) Lipid Panel, Standard (01/14/2025 9:22 AM EDT) Triglycerides 86 <150 mg/dL [facility] Comment:Desirable Triglyceri de: less than 150 mg/dLBorderline High Triglyceride 150-199 mg/dLHigh Triglyceride: 200-499 mg/dLVery High Triglyceride: greater than or equal to 5OO mg/dL Cholesterol 193 <200 mg/dL [facility] Comment:Desirable Cholestero l: less than 200 mg/dLBorderline High Cholesterol: 200-239 mg/dLHigh Cholesterol: greater than 239 mg/dL LDL Cholesterol Calculated 134(H) <100 mg/dL [facility] Comment:Desirable LDL: less than 100 mg/dLNear Optimal/Above Optimal LDL: 110- 129 mg/dLBorderline High LDL: 130-159 mg/dLHigh LDL: 160-189 mg/dLVery High LDL: greater than or equal to 190 mg/dL HDL Cholesterol 42 >40 mg/dL [facility] Comment:Desirable HDL: great er than 40 mg/dL Note: This HDL assay may give artificially low results in patients with liver disease. Blood Venous blood specimen / Unknown 01/14/2025 9:22 AM EDT 01/14/2025 2:06 PM EDT us Josee Collazo MD LAB BLOOD ORDERABLES Final Resul t [facility] [address] [place] [address] [phone] * Hepatitis Panel, General (08/13/2024 11:49 AM EST) Hepatitis A IgM Nonreactive Nonreactive [facility] Comment:IgM antibodies to TORREZ V not detected; does not exclude earlyacute or recovered HAV infection. ~Hepatitis B Surface Antibody NONREACTIVE Nonreactive [facility] Comment:Nonreactive: < 8.00 mIU/mL Hepatitis B Core Antibody Nonreactive Nonreactive [facility] Hepatitis C Antibody Nonreactive Nonreactive [facility] Comment:Antibodies to HCV no t detected; does not exclude early acuteHCV infection. Hepatitis B Surface Ag Negative Negative [facility] 08/13/2024 11:4 9 AM EST 08/13/2024 11:49 AM EST us Generic External Data Provider LAB BLOOD ORDERAB LES Final Result [facility] [address] [place] [phone] * Cologuard?? colon cancer screening (08/10/2023 3:59 PM EDT) Cologuard Result Negative Negative 08/17/20 9:57 AM EST [facility] (CLIA #:[id number]) Comment: NEGATIVE TEST RESULT. A negative Cologuard [...] (Harris Albarran al, N Engl J Med 2014;370(14):0389-1847) The normal value (reference range) for this assay is negative. COLOGUARD RE-SCREENING RECOMMENDATION: Periodic colorectal cancer screening is an important part of preventive healthcare for asymptomatic individuals at average risk for colorectal cancer. Following a negative Cologuard result, the [place] Cancer Society and U.S. Multi-Society Task Force screening guidelines recommend a Cologuard re-screening interval of 3 years. References: [place] [employer] Guideline for Colorectal Cancer Screening: https://www.cancer.org/cancer/ipste-zauqwg-gsglhu/ypdrqoysw-savetwkhb-ghovvij/ac s-rec ommendations.html.; Delroy MULLIGAN, Rere OTERO, Guy RochaK, Colorectal Cancer Screening: Recommendations for Physicians and Patients from the U.S. Multi-Society Task Force on Colorectal Cancer Screening , Am J Gastroenterology 2017; 112:1469-0259. TEST DESCRIPTION: Composite algorithmic analysis of stool [...] Cordero et al, N Engl J Med 2014;370(14):4913-8213.) Cologuard may produce a false negative or false positive result (no colorectal cancer or precancerous polyp present at colonoscopy follow up). A negative Cologuard test result does not guarantee the absence of CRC or advanced adenoma (pre-cancer). The current Cologuard screening interval is every 3 years. ([place] Cancer Society and U.S. Multi-Society Task Force). Cologuard performance data in a 10,000 patient pivotal study using colonoscopy as the reference method can be accessed at the following location: www.[employer].Miso/results. Additional description of the Cologuard test process, warnings and precautions can be found at www.cologuard.Miso. Stool specimen (specimen) 08/10/2023 3:59 PM EDT 08/11/2023 6:19 PM EDT Koki Vu MD LAB MOLECULAR DIAGNOSTICS ORD ERABLES Final Result [facility] (CLIA #:[id number]) [place] [address], * Hm Colonoscopy (04/17/2018 6:07 AM EDT) Historical Provider HEALTH MAINTENANCE Final Result from Last 3 Months or Most Recently Relevant to Health Maintenance Insurance [place] [address] C3 Care Teams Terrazzo Mechanic Relationship Specialty Start Date End Date oKki Vu MD [address] [place] [address] PCP - General Family Medicine 10/23/20 Addie Warehouse Associate DriverTypewriter Assembly And Parts Inspector 06/17/24
--- OUTSIDE RECORDS SUMMARY | 2025-09-16 20:27 | XMS_ITS | Encounter Summary ---
Author Organization [employer] Address [address] [facility] 7t [place] [address] Care Team Providers Care Dealer Compliance Representative Name Role Phone Koki Vu MD Primary Care Provider [phone] Encounter Details Date Type Department Care Team ([facility] st Contact Info) Description 09/27/2024 Telephone [facility] MED & PEDS [address] [place], [place] [phone] Koki Vu MD [address] [place], [place] [phone] Social History Tobacco Use Types Packs/Day Years [...] t he electric, gas, oil or water [employer] threatened to shut off services in your [...] discuss further medical options. Best contact # [phone]. documented in this encounter Plan of Treatment Not on file documented as of this encounter Visit Diagnoses Not on filedocumented in this encounter Additional Health Concerns Assessment Noted Time PHQ-9 Depression Total Score: 17 023 11:11 AM EDT documented as of this encounter Care Teams Dealer Compliance Representative Relationship Specialty Start Date End Date Koki Vu MD [address] [place] [address] PCP - General Family Medicine 10/23/20 Addie Material RequisitionerSignals Intelligence Analyst 06/17/24 documented as of this encounter
--- OUTSIDE RECORDS SUMMARY | 2025-09-16 20:27 | XMS_ITS | Encounter Summary ---
Author Organization [employer] Address [address] [facility] 7t [place] [address] Care Team Providers Care Clinical Lab Technologist Name Role Phone Koki Vu MD Primary Care Provider [phone] Reason for Visit * Reason Comments Med Refill Encounter Details Date Type Department Care Team ([facility] st Contact Info) Description 03/28/2024 Refill [facility] MED & PEDS [address] [place] [address] Koki Vu MD [address] [place] [address] Social History Tobacco Use Types Packs/Day Years [...] documented as of this encounter Care Teams Clinical Lab Technologist Relationship Specialty Start Date End Date Koki Vu MD [address] [place] [phone] PCP - General Family Medicine 10/23/20 Addie Concrete Saw OperatorSalon Designer 06/17/24 documented as of this encounter
--- OUTSIDE RECORDS SUMMARY | 2025-09-16 20:27 | XMS_ITS | Encounter Summary ---
Author Organization [employer] Address [address] [facility] 7t [place] [address] Care Team Providers Care Plastics Plater Name Role Phone Koki Vu MD Primary Care Provider [phone] Reason for Visit * Reason Comments Med Refill Encounter Details Date Type Department Care Team ([facility] st Contact Info) Description 10/25/2023 Refill [facility] MED & PEDS [address] [place] [address] Koki Vu MD [address] [place] [address] Social History Tobacco Use Types Packs/Day Years [...] documented as of this encounter Care Teams Plastics Plater Relationship Specialty Start Date End Date Koki Vu MD [address] [place] [phone] PCP - General Family Medicine 10/23/20 Addie Hospice Music TherapistTax Assessor 06/17/24 documented as of this encounter
--- OUTSIDE RECORDS SUMMARY | 2025-09-16 20:27 | XMS_ITS | Encounter Summary ---
Author Organization [employer] Address [address] [place] [address] 7t [place] [address] Care Team Providers Care Timber Treating Tank Operator Name Role Phone Koki Vu MD Primary Care Provider [phone] Reason for Visit * Reason Onset Date Comments Durable Medical Equipment 02/07/2024 Encounter Details Date Type Department Care Team ([facility] Contact Info) Description 02/07/2024 Telephone [facility] MED & PEDS [address] [place] [address] Koki Vu MD [address] [place] [address] Durable Medical Equipment Social History Tobacco Use [...] documented as of this encounter Care Teams Timber Treating Tank Operator Relationship Specialty Start Date End Date Koki Vu MD [address] [place] [address] PCP - General Family Medicine 10/23/20 Addie Swatch CutterWood Handler 06/17/24 documented as of this encounter
--- OUTSIDE RECORDS SUMMARY | 2025-09-16 20:27 | XMS_ITS | Encounter Summary ---
Author Organization [employer] Address [address] [facility] 7t [place] [address] Care Team Providers Care Aircraft General Repair Mechanic Name Role Phone Koki Vu MD Primary Care Provider [phone] Encounter Details Date Type Department Care Team (Late st Contact Info) Description 02/05/2024 Orders Only [facility] [address] [place], [place] [phone] Provider, MD Nasima Social History Tobacco Use [...] as of this encounter Care Teams Aircraft General Repair Mechanic Relationship Specialty Start Date End Date Koki Vu MD [address] [place] [address] PCP - General Family Medicine 10/23/20 Addie Sql Report AnalystFiber Designer 06/17/24 documented as of this encounter
--- OUTSIDE RECORDS SUMMARY | 2025-09-16 20:27 | XMS_ITS | Clinical Summary ---
Author Organization [facility] Address [address] [place] [address] Care Team Providers Care Distillery Manager Name Role Phone Vu Koki Primary Care Provider [phone] Allergies No known active allergies Medications amitriptyline [...] reports he needs new TSH border for caustic strength inspector referal placed in previous appointment. Psoriatic arthritis [...] Already f w psychiatrist and therapist at [facility] ---advised to continue care and may need eval if meds can be adjusted Immunizations Immunization Administration Dates Next Due Hepatitis A Vaccine, Adult Dosage 08/14/2019 Hepatitis B adult (ENGERIX-B ADULT) vaccine 1 mL IM 08/14/2019 Influenza, Injectable, Quadr ivalent, Contains Preservative 09/06/2018,12/11/2017 Influenza, Injectable, Quadr ivalent, Preservative Free 07/31/2023,07/02/2021,08/26/2020,2018 Pneumococcal Conjugate Vacci ne, 13 Valent 06/07/2019 Pneumococcal conjugate PCV20,polysaccharide [id number] conjugate, adjuvant, PF (Prevnar 20) 02/01/2024 RSV, [...] B Vaccines Completed 04/16/2024, 02/16/2024, 08/14/2019 Insurance [employer] Care Teams Distillery Manager Relationship Specialty Start Date End Date Koki Vu [address] [place] [address] [place] [address] PCP - General 12/26/23
--- OUTSIDE RECORDS SUMMARY | 2025-09-16 20:27 | XMS_ITS | Encounter Summary ---
Author Organization [employer] Address 75 [facility] 7t [place] [address] Care Team Providers Care Resin Filterer Name Role Phone Koki Vu MD Primary Care Provider [phone] Reason for Visit * Reason Comments Med Refill Encounter Details Date Type Department Care Team ([facility] st Contact Info) Description 10/25/2023 Refill [facility] MED & PEDS [address] [place] [address] Koki Vu MD [address] [place] [address] Social History Tobacco Use Types Packs/Day Years [...] documented as of this encounter Care Teams Resin Filterer Relationship Specialty Start Date End Date Koki Vu MD [address] [place] [phone] PCP - General Family Medicine 10/23/20 Addie Family PartnerAlarm Operator 06/17/24 documented as of this encounter
--- OUTSIDE RECORDS SUMMARY | 2025-09-16 20:27 | XMS_ITS | Encounter Summary ---
Author Organization [employer] Address [address] [address] Care Team Providers Care Oxygen Therapy Teacher Name Role Phone Koki Vu MD Primary Care Provider Reason for Referral * Consultation (Routine) - Closed Specialty Diagnoses / Procedures Referred By Contac t Referred To Contact Rheumatology Diagnoses Erosion of bone Tirso Mayfield MD [address] [place] [address] Phone: tel: fax: [facility] [address] [place] [address] Phone: tel: fax: Referral ID Status Reason Start Date Expiration Date V isits Requested Visits Authorized [id number] Closed Specialty Services Required 08/02/2024 08/02/2025 1 1 Encounter Details Date Type Department Care Team (Late st Contact Info) Description 08/02/2024 Orders Only [facility] MED & PEDS [address] [place] [address] Tirso Mayfield MD [address] [place] [address] Erosion of bone (Primary Dx) Social History [...] AM EDT) Rheumatoid Factor <13.0 <15.0 IU/mL [facility] Blood Venous blood specimen / Unknown 08/08/2024 10:40 AM EDT 08/08/2024 1:17 PM EDT Tirso Jara MD LAB BLOOD ORDERABL ES Final Result Performing Organization Address [facility] de Phone Number [facility] [address] [place] [phone] * Cyclic Citrullinated Peptide (CCP) Antibody (IgG) (08/08/2024 10:40 AM EDT) Cyclic Citrullinated Peptide <16 UNITS [facility] Comment:Reference RangeNegat shalom: <20Weak Positive: 20-39Moderate Positive: 40-59Strong Positive: >59THIS TEST WAS PERFORMED AT:[facility] [place] [id number] RECINOS MD Blood Venous blood specimen / Unknown 08/08/2024 10:40 AM EDT 08/08/2024 1:17 PM EDT us Tirso Jara MD LAB BLOOD ORDERABL ES Final Result Performing Organization Address [facility] de Phone Number [facility] [address] [place] [phone] documented in this encounter Visit Diagnoses Diagnosis Erosion of bone- Primary documented in this encounter Additional Health Concerns Assessment Noted Time PHQ-9 Depression Total Score: 17 07/04/ 023 11:11 AM EDT documented as of this encounter Care Teams Oxygen Therapy Teacher Relationship Specialty Start Date End Date Koki Vu MD [address] [place] [address] PCP - General Family Medicine 10/23/20 Addie Investment Sales AssistantAlcohol Rubber 06/17/24 documented as of this encounter
--- OUTSIDE RECORDS SUMMARY | 2025-09-16 20:27 | XMS_ITS | Encounter Summary ---
Author Organization [employer] Address [address] [facility] 7t [place] [address] Care Team Providers Care Nephrology Nurse Name Role Phone Koki Vu MD Primary Care Provider [phone] Encounter Details Date Type Department Care Team (Late st Contact Info) Description 08/23/2023 Abstract [facility] [address] [place] [address] Koki Vu MD [address] [place], [place] [phone] Social History Tobacco Use Types Packs/Day Years [...] documented as of this encounter Care Teams Nephrology Nurse Relationship Specialty Start Date End Date Koki Vu MD [address] [place] [address] PCP - General Family Medicine 10/23/20 Addie Certified Histologic TechnicianTowel Inspector 06/17/24 documented as of this encounter
== END 2025-09-16 14:29 | disposition home or self-care (01) ==
LOC: HO.XRAY 14:28
PROVIDERS: PCP Family Medicine
DX: M87.052 Idiopathic aseptic necrosis of left femur (principal); M70.62 Trochanteric bursitis, left hip
CPT/HCPCS: 73502

== ENCOUNTER → 2025-09-16 14:34 | Outpatient (BNV) | payer MEDICAID, SELFPAY | PROVIDERS: PCP Family Medicine; Visit Provider Radiology Diagnostic Radiology | DX: M85.852 Other specified disorders of bone density and structure, left thigh (principal) | CPT/HCPCS: 73502 ==

== ENCOUNTER 2025-09-18 08:46 | Outpatient (AMB) | payer MEDICAID, SELFPAY ==
[2025-09-18 08:51] VITALS: BMI 28.0
--- NOTE | 2025-09-18 08:51 | MHC.PC.OV ---
Vital Signs 09/18/25 08:51 Height 5 ft 3 in Weight 158 lb BMI 28.0 Intake Visit Reasons: OV - Left Hip Avascular Necrosis - increased pain Intake Note: Kvng is a 60 year old male who presents today for a follow up of his Left Hip Avascular Necrosis. Allergies [id number]-vfrm (From [employer] Autoinjector) Allergy (Unknown, Verified 09/18/25 08:51) Rash opiods Allergy (Unknown, Uncoded 09/18/25 08:51) Rash HPI OV - Left Hip Avascular Necrosis - increased pain HPI Details Kvng is a 60 year old male who presents today for a follow up of his Left Hip Avascular Necrosis. Pt states he has increased stabbing pain. He describes pain in the groin that has been present for the last 2 months. This did occur previously but resolved. This time he can barely walk and uses a cane. 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 Venous congestion Pain in right lower leg Lipoma of scalp Kidney cysts Spondylosis of thoracic spine Spondylosis of lumbar spine Schatzki's ring Fatty liver HTN (hypertension) Pre-diabetes Dysphagia Asthma Hx of chest pain DAYNA on CPAP Hypothyroid Psoriasis Psoriatic arthritis Chronic pain Mood disorder Depression Avascular necrosis Chronic pain syndrome Spondylosis of lumbar region without myelopathy or radiculopathy Spondylosis, cervical Degeneration, intervertebral disc, cervical Surgical History History of back surgery History of surgery Status post excision of lipoma (~10/21/21) Status post cardiac catheterization Hx of cardiac cath H/O neck surgery Hx of hand surgery Hx of endoscopy History of colonoscopy Family History Father Cirrhosis Alcoholism Mother Diabetes HTN (hypertension) Parkinson disease Brother Cirrhosis Alcoholism Social History Household Members: Spouse and Children Housing: House Are you a primary personal care assistant to a significant other at home: No Do you presently have visiting nurse or other home services: Yes Alcohol intake: never Patient Tobacco Use Status: Never used Tobacco Tobacco use type: Cigarette Second Hand Smoke Exposure: No service: No Current occupational status: disabled Current occupation: rt handed Questionnaire Thrive Questionnaire Date Thrive assessed: 03/26/25 Physical exam (Primary Care) BMI result Body Mass Index 28.0 Tobacco/Smoking Status: Tobacco use Status Patient Tobacco Use Status Never used Tobacco 09/18/25 08:52 Tobacco use type Cigarette 09/18/25 08:52 Thrive Assessment: Date of Thrive Assessment Date Thrive assessed 03/26/25 09/18/25 08:52 Coding Diagnoses Avascular necrosis of bone of left hip M87.052 Assessment & Plan Assessment & Plan (1) Avascular necrosis of bone of left hip: Code(s): M87.052 - Idiopathic aseptic necrosis of left femur Category: Medical Orders: Orders MR hip LT wo con Today M87.052 - Idiopathic aseptic necrosis of left femur
--- NOTE | 2025-09-18 10:25 | A.OFFVIS_ITS ---
Vital Signs 09/18/25 08:51 Height 5 ft 3 in Weight 158 lb BMI 28.0 Intake Visit Reasons: OV - Left Hip Avascular Necrosis - increased pain Allergies fremanezumab-vfrm (From [email or web address] Autoinjector) Allergy (Unknown, Verified 09/18/25 08:51) Rash opiods Allergy (Unknown, Uncoded 09/18/25 08:51) Rash HPI HPI OV - Left Hip Avascular Necrosis - increased pain: Details: Kvng presents today with left groin pain. He has been ongoing for about 2 months. He has had this in the past but it went away. Now he has sharp pain that prevents her from walking more than a few minutes comfortably. He uses a cane to ambulate. He has a known history of avascular necrosis. 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 Venous congestion Pain in right lower leg Lipoma of scalp Kidney cysts Spondylosis of thoracic spine Spondylosis of lumbar spine Schatzki's ring Fatty liver HTN (hypertension) Pre-diabetes Dysphagia Asthma Hx of chest pain DAYNA on CPAP Hypothyroid Psoriasis Psoriatic arthritis Chronic pain Mood disorder Depression Avascular necrosis Chronic pain syndrome Spondylosis of lumbar region without myelopathy or radiculopathy Spondylosis, cervical Degeneration, intervertebral disc, cervical Surgical History History of back surgery History of surgery Status post excision of lipoma (~10/21/21) Status post cardiac catheterization Hx of cardiac cath H/O neck surgery Hx of hand surgery Hx of endoscopy History of colonoscopy Family History Father Cirrhosis Alcoholism Mother Diabetes HTN (hypertension) Parkinson disease Brother Cirrhosis Alcoholism Social History Household Members: Spouse and Children Housing: House Are you a primary home care giver to a significant other at home: No Do you presently have visiting nurse or other home services: Yes Alcohol intake: never Patient Tobacco Use Status: Never used Tobacco Tobacco use type: Cigarette Second Hand Smoke Exposure: No service: No Current occupational status: disabled Current occupation: rt handed Physical Exam Exam Exam: Positive gait antalgia. Positive impingement test on the left. Vital Signs: BMI result Body Mass Index 28.0 Results Reviewed Results Reviewed: I personally reviewed relevant radiographs. Sclerosis in the left femoral head without obvious collapse consistent with avascular necrosis Assessment & Plan Assessment & Plan (1) Avascular necrosis of bone of left hip: Code(s): M87.052 - Idiopathic aseptic necrosis of left femur Category: Medical Plan: This is a 60-year-old gentleman with avascular necrosis of the femoral head. No obvious collapse but pain with ambulation. MRI ordered. Follow up after. Orders: Orders MR hip LT wo con Today M87.052 - Idiopathic aseptic necrosis of left femur Coding Level of Care Code Est Pt Level 3 (55489) Diagnoses Avascular necrosis of bone of left hip M87.052
== END 2025-09-18 09:14 | disposition home or self-care (01) ==
LOC: HO.HOS 08:46
PROVIDERS: PCP Family Medicine; Visit Provider Orthopaedic Surgery
DX: M87.052 Idiopathic aseptic necrosis of left femur (principal)
CPT/HCPCS: 99213

== ENCOUNTER → 2025-09-18 08:46 | Outpatient (BNVA) | payer MEDICAID, SELFPAY | PROVIDERS: PCP Family Medicine; Visit Provider Orthopaedic Surgery | DX: M87.052 Idiopathic aseptic necrosis of left femur (principal) | CPT/HCPCS: 99212 ==